=== PATIENT | male | born 1945 | race Caucasian/White ===

== ENCOUNTER → 2017-12-14 05:00 | Outpatient (REF) | payer MEDICARE, SELFPAY ==
[2017-12-14 08:43] LABS: Hematocrit 35.1 % (40-54); Hemoglobin 11.6 g/dl (13.0-16.5); Mean Corpuscular Hgb 29.7 pg (27.0-32.0); Mean Corpuscular Volume 89.8 fL (80-94); Mean Platelet Vol. 10.7 fl (6.2-12.0); Platelet Count 161 K/mm3 (150-450); RBC Distribution Width CV 14.9 % (11.6-14.6); RBC Distribution Width SD 48.3 fl (35.1-43.9); Red Blood Count 3.91 M/mm3 (4.6-6.2); Scan Indicated on CBC? Y/N NO
[2017-12-14 09:18] LABS: Valproic Acid (Depakene) Level 75 ug/mL (50-100)
[2017-12-14 09:28] LABS: ALB/GLOB Ratio 0.9 RATIO (0.9-2.4); AST(SGOT) 7 U/L (15-37); Alanine Aminotransfer ALT/SGPT 10 U/L (16-61); Albumin, Serum 2.8 g/dL (3.2-5.0); Alkaline Phosphatase 67 U/L (45-117); Anion Gap 9 (5-15); BUN 18 mg/dL (7-18); BUN/Creat Ratio 16.2 RATIO (10-20); Calcium,Total 7.8 mg/dL (8.5-10.1); Chloride 103 mmol/L (98-107); Cholesterol 107 mg/dL (200); Creatinine, Serum 1.11 mg/dL (0.70-1.30); EST Glomerular Filtration Rate 69 mL/min (>60); Est Glom Filt Rate - Afr Amer 84 mL/min (>60); Globulin 3.1 g/dL (2.2-4.2); Glucose 144 mg/dL (74-106); High Density Lipoprotein 43 mg/dL; Potassium 3.5 mmol/L (3.5-5.1); Protein, Total 5.9 g/dL (6.4-8.2); Sodium Level 139 mmol/L (136-145); Thyroid Stim Hormone (TSH) 2.54 uIU/mL (0.358-3.74); Triglycerides 66 mg/dL; Very Low Density Lipoprotein 13 mg/dL (5-40)
[2017-12-14 09:59] LABS: Hemoglobin A1c 7.5 % (4.2-6.3)
== END ==
LOC: OLS.WCC 05:00
PROVIDERS: Visit Provider Family Medicine
DX: E11.9 Type 2 diabetes mellitus without complications (principal); I10 Essential (primary) hypertension; E78.5 Hyperlipidemia, unspecified; Z79.899 Other long term (current) drug therapy
CPT/HCPCS: 36415; 80053; 80061; 80164; 83036; 84443; 85027

== ENCOUNTER → 2018-04-18 05:00 | Outpatient (REF) | payer MEDICARE, SELFPAY ==
[2018-04-18 08:18] LABS: Platelet Count 179 K/mm3 (150-450)
[2018-04-18 08:30] LABS: Valproic Acid (Depakene) Level 73 ug/mL (50-100)
[2018-04-18 08:33] LABS: AST(SGOT) 9 U/L (15-37); Alanine Aminotransfer ALT/SGPT 14 U/L (16-61)
== END ==
LOC: OLS.WCC 05:00
DX: Z79.899 Other long term (current) drug therapy (principal)
CPT/HCPCS: 36415; 80164; 84450; 84460; 85049

== ENCOUNTER → 2018-06-21 05:00 | Outpatient (REF) | payer MEDICARE, SELFPAY ==
[2018-06-21 07:56] LABS: Hematocrit 34.7 % (40-54); Hemoglobin 11.6 g/dl (13.0-16.5); Mean Corp Hgb Conc 33.4 g/gl (32-36); Mean Corpuscular Hgb 29.9 pg (27.0-32.0); Mean Corpuscular Volume 89.4 fL (80-94); Mean Platelet Vol. 11.2 fl (6.2-12.0); Platelet Count 184 K/mm3 (150-450); RBC Distribution Width CV 14.2 % (11.6-14.6); RBC Distribution Width SD 45.8 fl (35.1-43.9); Red Blood Count 3.88 M/mm3 (4.6-6.2); White Blood Count 5.2 K/mm3 (4.4-11.0)
[2018-06-21 07:57] LABS: Scan Indicated on CBC? Y/N NO
[2018-06-21 08:19] LABS: ALB/GLOB Ratio 0.9 RATIO (0.9-2.4); AST(SGOT) 5 U/L (15-37); Alanine Aminotransfer ALT/SGPT 12 U/L (16-61); Albumin, Serum 2.6 g/dL (3.2-5.0); Alkaline Phosphatase 55 U/L (45-117); Anion Gap 9 (5-15); BUN 20 mg/dL (7-18); Calcium,Total 7.7 mg/dL (8.5-10.1); Chloride 96 mmol/L (98-107); Cholesterol 102 mg/dL (200); Creatinine, Serum 1.11 mg/dL (0.70-1.30); EST Glomerular Filtration Rate 69 mL/min (>60); Est Glom Filt Rate - Afr Amer 84 mL/min (>60); Glucose 131 mg/dL (74-106); High Density Lipoprotein 39 mg/dL; Potassium 3.5 mmol/L (3.5-5.1); Protein, Total 5.6 g/dL (6.4-8.2); Sodium Level 136 mmol/L (136-145); T4 Total, Thyroxin 6.2 ug/dL (4.5-12.1); Thyroid Stim Hormone (TSH) 3.11 uIU/mL (0.358-3.74); Triglycerides 110 mg/dL; Very Low Density Lipoprotein 22 mg/dL (5-40)
[2018-06-21 08:56] LABS: Hemoglobin A1c 7.3 % (4.2-6.3)
== END ==
LOC: OLS.WCC 05:00
PROVIDERS: Visit Provider Family Medicine
DX: E11.9 Type 2 diabetes mellitus without complications (principal); I10 Essential (primary) hypertension; E78.5 Hyperlipidemia, unspecified; E03.9 Hypothyroidism, unspecified; Z79.899 Other long term (current) drug therapy
CPT/HCPCS: 36415; 80053; 80061; 83036; 84436; 84443; 85027

== ENCOUNTER 2018-11-08 19:52 | Emergency (ER) | payer MEDICARE, SELFPAY ==
[2018-11-08 19:54] VITALS: BP 154/77; PULSE 62; RESP 17; TEMP 36.6; O2SAT 100; BMI 37.2
--- NOTE | 2018-11-08 20:54 | ED.VISSUMM ---
- ER Visit Summary Date of Service: 11/08/18 Chief Complaint: Depression History of Present Illness: The patient is a 73 M history of depression, hypertension and diabetes. Patient's had multiple admissions in the past but none in the last several years for depression. He denies any prior suicide attempts. He states that the last 3 weeks he has become more more depressed. He does not have a specific plan on how he would harm himself. Nor did he specifically say he is suicidal he is just concerned that he is getting worse. Physical Examination: Older male no acute distress. Family in the room. Vital signs are stable afebrile. No distress. HEENT exam unremarkable atraumatic. Neck nontender. No signs of trauma. Lungs clear to auscultation bilaterally. Heart regular rate and rhythm no murmur. Chest wall nontender. Abdomen soft nontender. Patient is moving all 4 extremities. Neurovascular intact. No edema. No signs of trauma. Back nontender. Neurologically is awake and alert with no focal motor deficits. Patient is cooperative. He makes eye contact. He is neither violent nor yelling. Test Results: None Emergency Department Course and Treatment: I will have the social service director evaluate the patient. At this time unless she comes up with additional information I feel he is safe to be discharged back to his extended care facility. Treatment Plan: Patient was also evaluated by executive secretary social welfare. I agree that if her card with him being discharged back to the extended care facility. Discussed that both at length with the family and patient. They have already set up an appointment for the patient to be seen by the counseling center personnel tomorrow morning. Patient is return if he is feeling worse or suicidal. Disposition: Discharge Impression: Acute on chronic depression History of diabetes and hypertension This note was generated with Rattleation software. It may contain incorrect words, spelling, and punctuation that were not noted in review of the chart prior to signing ED Disposition - Plan for ED Patient: Referrals: Parviz Acevedo MD [Primary Care Provider] -
[2018-11-08 20:57] VITALS: RESP 18
[2018-11-08 21:08] VITALS: BP 154/70; PULSE 60; RESP 18; O2SAT 96
--- NOTE | 2018-11-08 21:35 | CM.ED ---
SOCIAL WORK ASSESSMENT REASON FOR CONSULT: DEPRESSION INFORMANT: DR. BAILEY INFORMATION OBTAINED FROM: MEDICAL RECORD AND PT. INTRODUCED SELF AND ROLE AT [facility]. PT IS ALERT AND ORIENTED X3 AND PRESENTS WITH PLEASANT AFFECT EVIDENCED BY SMILING AND WILLINGNESS TO PARTICIPATE IN ASSESSMENT. PT ENGAGES IN CONVERSATION AND EXHIBITS APPROPRIATE SOCIAL ETIQUETTE. LIVING ARRANGEMENTS: [facility] - [facility]. STRESSORS: PT IS UNABLE TO IDENTIFY ANY RECENT OR SIGNIFICANT STRESSORS OR ANNIVERSARIES. STATES HIS NERVES HAVE JUST GOTTEN WORSE. SUPPORTS: PT IDENTIFIES HIS TWO BROTHERS THAT ARE BOTH PRESENT. MENTAL HEALTH HX: PT REPORTS A HX OF DEPRESSION, AND BIPOLAR. HE IS LINKED WITH DR. BOWEN AT [facility] AND IS PRESCRIBED SEROQUEL, DEPAKOTE AND BUSPAR. HE IS NOT LINKED WITH A COUNSELOR AND REPORTS THAT IT DID NOT HELP IN THE PAST. PT DENIES SI, PLAN OR INTENT AT THIS TIME. STATES THAT SOMETIMES IT SEEMS EASIER TO NOT DEAL WITH HIS NERVES, BUT PT DENIES SI. REPORTS FAMILY A REASON HE WOULD NOT COMPLETE A SUICIDE ATTEMPT AND DENIES AN ATTEMPT IN THE PAST ALTHOUGH HE HAS BEEN PSYCHIATRICALLY PLACED. 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 PT IS AGREEABLE. PLACED CALL TO THE COUNSELING CENTER AND ESTABLISHED AN APPOINTMENT FOR THE PT WITH GEORGE ON 11/09 AT 10 AM. SUBSTANCE USE HX: DENIES ANY SUBSTANCE USE. INTERVENTION(S): ASSESSMENT COMPLETE AND PT PRESENTING A SUICIDE RISK. PT ESTABLISHED WITH A CRISIS F/U APPOINTMENT WITH GEORGE AT [facility] AT 10AM ON 11/09/18. PHYSICIAN UPDATED, PT TO BE GIVEN [facility] PRIOR TO DISCHARGE BACK TO SNF. PLAN: RETURN TO SNF AND F/U WITH CRISIS TOMORROW AT 10 AM. Aiyana Valles, BALTAZAR, ALIX
--- NOTE | 2018-11-08 21:40 | ED.DEP ---
ED Disposition - Plan for ED Patient: Disposition: Home or Assisted Living Instructions: ED Depression Referrals: Parviz Acevedo MD [Primary Care Provider] - As Needed Additional Instructions: Absolutely very important to keep the appointment with the counselor tomorrow. Return if feeling worse or let someone know if you feel suicidal enough to act on it.
[2018-11-08] MEDS: LORazepam 1 MG Tablet PO (21:46)
[2018-11-08 21:51] VITALS: BP 152/71; PULSE 64; RESP 18; O2SAT 98
--- NOTE | 2018-11-08 21:51 | NURSING ---
REPORT CALLED TO ADA AT [facility]
== END 2018-11-08 22:10 | disposition skilled nursing facility (03) ==
PROVIDERS: Emergency Provider Emergency Medicine; Family Provider Family Medicine; PCP Family Medicine
DX: F32.9 Major depressive disorder, single episode, unspecified (principal); I10 Essential (primary) hypertension; E11.9 Type 2 diabetes mellitus without complications; Z79.4 Long term (current) use of insulin; Z79.899 Other long term (current) drug therapy
CPT/HCPCS: 99284

== ENCOUNTER → 2018-12-14 05:00 | Outpatient (REF) | payer MEDICARE, SELFPAY ==
[2018-12-14 08:40] LABS: Platelet Count 217 K/mm3 (150-450)
[2018-12-14 08:51] LABS: AST(SGOT) 8 U/L (15-37); Alanine Aminotransfer ALT/SGPT 11 U/L (16-61)
[2018-12-14 09:03] LABS: Valproic Acid (Depakene) Level 80 ug/mL (50-100)
== END ==
LOC: OLS.WCC 05:00
DX: Z79.899 Other long term (current) drug therapy (principal)
CPT/HCPCS: 36415; 80164; 82140; 84450; 84460; 85049

== ENCOUNTER → 2018-12-21 | Outpatient (REF) | payer MEDICARE, SELFPAY ==
[2018-12-21 07:24] LABS: Platelet Count 179 K/mm3 (150-450)
[2018-12-21 07:42] LABS: AST(SGOT) 7 U/L (15-37); Alanine Aminotransfer ALT/SGPT 11 U/L (16-61); Albumin, Serum 2.6 g/dL (3.2-5.0); Alkaline Phosphatase 56 U/L (45-117); Anion Gap 4 (5-15); BUN 25 mg/dL (7-18); BUN/Creat Ratio 22.5 RATIO (10-20); Calcium,Total 8.4 mg/dL (8.5-10.1); Chloride 98 mmol/L (98-107); Cholesterol 106 mg/dL (200); Creatinine, Serum 1.11 mg/dL (0.70-1.30); EST Glomerular Filtration Rate 69 mL/min (>60); Est Glom Filt Rate - Afr Amer 83 mL/min (>60); Globulin 2.9 g/dL (2.2-4.2); Glucose 104 mg/dL (74-106); High Density Lipoprotein 45 mg/dL; Potassium 3.2 mmol/L (3.5-5.1); Protein, Total 5.5 g/dL (6.4-8.2); Sodium Level 134 mmol/L (136-145); Triglycerides 48 mg/dL; Very Low Density Lipoprotein 10 mg/dL (5-40)
[2018-12-21 07:46] LABS: Hemoglobin A1c 7.8 % (4.2-6.3)
[2018-12-21 07:51] LABS: Valproic Acid (Depakene) Level 79 ug/mL (50-100)
== END | disposition home or self-care (01) ==
LOC: OLS.WCC 05:00
PROVIDERS: Visit Provider Family Medicine
DX: E11.9 Type 2 diabetes mellitus without complications (principal); I10 Essential (primary) hypertension; E78.5 Hyperlipidemia, unspecified; Z79.899 Other long term (current) drug therapy; R00.2 Palpitations
CPT/HCPCS: 36415; 80048; 80061; 80076; 80164; 83036; 85049

== ENCOUNTER → 2019-05-24 05:00 | Outpatient (REF) | payer MEDICARE, SELFPAY ==
[2019-05-24 07:53] LABS: Hematocrit 35.4 % (40-54); Hemoglobin 11.8 g/dL (13.0-16.5); Mean Corp Hgb Conc 33.3 g/dL (32-36); Mean Corpuscular Hgb 29.9 pg (27.0-32.0); Mean Corpuscular Volume 89.6 fL (80-94); Mean Platelet Vol. 10.7 fl (6.2-12.0); Platelet Count 204 K/mm3 (150-450); RBC Distribution Width CV 14.8 % (11.6-14.6); RBC Distribution Width SD 48.3 fl (35.1-43.9); Red Blood Count 3.95 M/mm3 (4.6-6.2); White Blood Count 6.2 K/mm3 (4.4-11.0)
[2019-05-24 08:19] LABS: ALB/GLOB Ratio 0.9 RATIO (0.9-2.4); AST(SGOT) 6 U/L (15-37); Alanine Aminotransfer ALT/SGPT 10 U/L (16-61); Albumin, Serum 2.6 g/dL (3.2-5.0); Alkaline Phosphatase 64 U/L (45-117); Anion Gap 5 (5-15); BUN 22 mg/dL (7-18); BUN/Creat Ratio 20.4 RATIO (10-20); Chloride 102 mmol/L (98-107); Cholesterol 111 mg/dL (200); Creatinine, Serum 1.08 mg/dL (0.70-1.30); EST Glomerular Filtration Rate 71 mL/min (>60); Est Glom Filt Rate - Afr Amer 86 mL/min (>60); Globulin 2.9 g/dL (2.2-4.2); Glucose 128 mg/dL (74-106); High Density Lipoprotein 44 mg/dL; Potassium 3.5 mmol/L (3.5-5.1); Protein, Total 5.5 g/dL (6.4-8.2); Sodium Level 138 mmol/L (136-145); T4 Total, Thyroxin 4.7 ug/dL (4.5-12.1); Thyroid Stim Hormone (TSH) 2.22 uIU/mL (0.358-3.74); Triglycerides 75 mg/dL; Very Low Density Lipoprotein 15 mg/dL (5-40)
[2019-05-24 08:29] LABS: Hemoglobin A1c 7.5 % (4.2-6.3)
[2019-05-24 08:40] LABS: Valproic Acid (Depakene) Level 76 ug/mL (50-100)
== END ==
LOC: OLS.WCC 05:00
PROVIDERS: Visit Provider Family Medicine
DX: E11.9 Type 2 diabetes mellitus without complications (principal); I10 Essential (primary) hypertension; E78.5 Hyperlipidemia, unspecified; E03.9 Hypothyroidism, unspecified; Z79.899 Other long term (current) drug therapy
CPT/HCPCS: 36415; 80053; 80061; 80164; 82140; 83036; 84436; 84443; 85027

== ENCOUNTER → 2019-06-26 05:00 | Outpatient (REF) | payer MEDICARE, SELFPAY | LOC: OLS.WCC 05:00 | PROVIDERS: Visit Provider Family Medicine | DX: Z79.899 Other long term (current) drug therapy (principal) | CPT/HCPCS: 36415; 82140 ==

== ENCOUNTER → 2019-11-23 05:00 | Outpatient (REF) | payer MEDICARE, MEDICAID, SELFPAY ==
[2019-11-23 08:37] LABS: Platelet Count 249 K/mm3 (150-450)
[2019-11-23 08:52] LABS: AST(SGOT) 16 U/L (15-37); Alanine Aminotransfer ALT/SGPT 18 U/L (16-61); Albumin, Serum 3.3 g/dL (3.2-5.0); Alkaline Phosphatase 108 U/L (45-117); Anion Gap 7 (5-15); BUN 12 mg/dL (7-18); BUN/Creat Ratio 10.5 RATIO (10-20); Calcium,Total 8.5 mg/dL (8.5-10.1); Chloride 96 mmol/L (98-107); Cholesterol 108 mg/dL (200); Creatinine, Serum 1.14 mg/dL (0.70-1.30); EST Glomerular Filtration Rate 67 mL/min (>60); Est Glom Filt Rate - Afr Amer 81 mL/min (>60); Globulin 3.3 g/dL (2.2-4.2); Glucose 132 mg/dL (74-106); High Density Lipoprotein 42 mg/dL; Potassium 3.5 mmol/L (3.5-5.1); Protein, Total 6.6 g/dL (6.4-8.2); Sodium Level 136 mmol/L (136-145); Triglycerides 88 mg/dL; Very Low Density Lipoprotein 18 mg/dL (5-40)
[2019-11-23 08:56] LABS: Valproic Acid (Depakene) Level < 3 ug/mL (50-100)
[2019-11-23 09:37] LABS: Hemoglobin A1c 8.2 % (4.2-6.3)
== END ==
LOC: OLS.WCC 05:00
PROVIDERS: PCP Family Medicine; Visit Provider Family Medicine
DX: E11.9 Type 2 diabetes mellitus without complications (principal); E78.5 Hyperlipidemia, unspecified; E03.9 Hypothyroidism, unspecified; Z79.899 Other long term (current) drug therapy; Z51.81 Encounter for therapeutic drug level monitoring
CPT/HCPCS: 36415; 80053; 80061; 80164; 83036; 85049

== ENCOUNTER → 2020-01-08 14:15 | Outpatient (REF) | payer MEDICARE, MEDICAID, SELFPAY | LOC: OLS.WCC 14:15 | PROVIDERS: Visit Provider Family Medicine | DX: E11.9 Type 2 diabetes mellitus without complications (principal); E78.5 Hyperlipidemia, unspecified; Z79.899 Other long term (current) drug therapy | CPT/HCPCS: 87070; 87205 ==

== ENCOUNTER → 2020-03-26 11:30 | Outpatient (REF) | payer MEDICARE, MEDICAID, SELFPAY ==
[2020-03-26 12:26] LABS: Absolute Lymphocyte Count 1.76 X10^3/uL (0.83-4.51); Basophil# 0.02 X10^3/uL; Basophil% 0.3 % (0-1); Eosinophil# 0.01 X10^3/uL; Eosinophils% 0.2 % (0-5); Hemoglobin 10.7 g/dL (13.0-16.5); Lymphocyte # 1.76 X10^3/ul (4.0); Mean Corp Hgb Conc 32.4 g/dL (32-36); Mean Corpuscular Hgb 27.8 pg (27.0-32.0); Mean Corpuscular Volume 85.7 fL (80-94); Mean Platelet Vol. 11.4 fl (6.2-12.0); Monocyte# 1.03 X10^3/uL; Monocyte% 17.6 % (0-10); NRBC Flagged by Analyzer 0 % (0-5); Neutrophil # 3.01 X10^3/uL (2.7-7.7); Neutrophil % 51.4 % (47-70); Platelet Count 239 K/mm3 (150-450); RBC Distribution Width CV 15.2 % (11.6-14.6); RBC Distribution Width SD 46.8 fl (35.1-43.9); Red Blood Count 3.85 M/mm3 (4.6-6.2); White Blood Count 5.9 K/mm3 (4.4-11.0)
[2020-03-26 12:34] LABS: Anion Gap 6 (5-15); BUN 15 mg/dL (7-18); BUN/Creat Ratio 10.5 RATIO (10-20); Calcium,Total 8.4 mg/dL (8.5-10.1); Chloride 97 mmol/L (98-107); Creatinine, Serum 1.43 mg/dL (0.70-1.30); EST Glomerular Filtration Rate 51 mL/min (>60); Est Glom Filt Rate - Afr Amer 62 mL/min (>60); Glucose 105 mg/dL (74-106); Potassium 3.9 mmol/L (3.5-5.1); Sodium Level 132 mmol/L (136-145)
== END ==
LOC: OLS.WCC 11:30
PROVIDERS: PCP Family Medicine; Visit Provider Family Medicine
DX: E11.9 Type 2 diabetes mellitus without complications (principal); R50.9 Fever, unspecified; I10 Essential (primary) hypertension
CPT/HCPCS: 36415; 80048; 85025

== ENCOUNTER → 2020-04-03 13:35 | Outpatient (REF) | payer MEDICARE, MEDICAID, SELFPAY | LOC: OLS.WCC 13:35 | PROVIDERS: PCP Family Medicine; Referring Provider Family Medicine; Visit Provider Family Medicine | DX: Z20.828 Contact with and (suspected) exposure to other viral communicable diseases (principal) | CPT/HCPCS: 87635; U0003 ==

== ENCOUNTER → 2020-05-13 08:00 | Outpatient (REF) | payer MEDICARE, MEDICAID, SELFPAY ==
[2020-05-13 11:34] LABS: Hematocrit 33.5 % (40-54); Hemoglobin 10.4 g/dL (13.0-16.5); Mean Corpuscular Hgb 27.1 pg (27.0-32.0); Mean Corpuscular Volume 87.2 fL (80-94); Mean Platelet Vol. 10.5 fl (6.2-12.0); Platelet Count 315 K/mm3 (150-450); RBC Distribution Width SD 51.2 fl (35.1-43.9); Red Blood Count 3.84 M/mm3 (4.6-6.2); White Blood Count 8.7 K/mm3 (4.4-11.0)
[2020-05-13 11:56] LABS: Hemoglobin A1c 7.8 % (3.8-5.6)
[2020-05-13 12:17] LABS: ALB/GLOB Ratio 0.9 RATIO (0.9-2.4); AST(SGOT) 21 U/L (15-37); Alanine Aminotransfer ALT/SGPT 26 U/L (16-61); Albumin, Serum 3.2 g/dL (3.2-5.0); Alkaline Phosphatase 113 U/L (45-117); Anion Gap 5 (5-15); BUN 22 mg/dL (7-18); BUN/Creat Ratio 14.6 RATIO (10-20); Calcium,Total 8.6 mg/dL (8.5-10.1); Chloride 105 mmol/L (98-107); Cholesterol 123 mg/dL (200); Creatinine, Serum 1.51 mg/dL (0.70-1.30); EST Glomerular Filtration Rate 48 mL/min (>60); Est Glom Filt Rate - Afr Amer 58 mL/min (>60); Globulin 3.5 g/dL (2.2-4.2); Glucose 133 mg/dL (74-106); High Density Lipoprotein 59 mg/dL; Potassium 3.4 mmol/L (3.5-5.1); Protein, Total 6.7 g/dL (6.4-8.2); Sodium Level 139 mmol/L (136-145); T4 Total, Thyroxin 7.4 ug/dL (4.5-12.1); Thyroid Stim Hormone (TSH) 1.78 uIU/mL (0.358-3.74); Triglycerides 70 mg/dL; Very Low Density Lipoprotein 14 mg/dL (5-40)
[2020-05-13 12:18] LABS: Valproic Acid (Depakene) Level < 3 ug/mL (50-100)
== END ==
LOC: OLS.WCC 08:00
PROVIDERS: PCP Family Medicine; Referring Provider Family Medicine; Visit Provider Family Medicine
DX: D64.9 Anemia, unspecified (principal); E11.9 Type 2 diabetes mellitus without complications; I10 Essential (primary) hypertension; E78.5 Hyperlipidemia, unspecified; E03.9 Hypothyroidism, unspecified; Z79.899 Other long term (current) drug therapy; Z51.81 Encounter for therapeutic drug level monitoring
CPT/HCPCS: 36415; 80053; 80061; 80164; 83036; 84436; 84443; 85027

== ENCOUNTER 2020-07-08 00:51 | Emergency (ER) | payer MEDICARE, MEDICAID, SELFPAY ==
[2020-07-08 00:53] VITALS: BP 123/57; PULSE 73; RESP 13; TEMP 36.4; O2SAT 96; BMI 38.6
--- NOTE | 2020-07-08 01:19 | CT_ITS ---
STUDY: CT BRAIN WITHOUT CONTRAST REASON FOR EXAM: Male, 74 years old. S/P SLIPPING AND FALLING AT MA, LAC TO POSTERIOR HEAD RADIATION DOSAGE (If Supplied By Facility): CTDIvol = ( 44.99 ) mGy, DLP = ( 779.24 ) mGycm TECHNIQUE: Transaxial CT imaging of the brain was performed without administration of intravenous contrast material. Individualized dose optimization techniques were used for this CT. COMPARISON: No relevant priors. FINDINGS: Normal soft tissue structures. Normal calvarium. Normal size ventricles and extra-axial spaces for the patient''s age. There are areas of decreased attenuation within the white matter tracts of the supratentorial brain, consistent with microvascular disease changes. Normal basal ganglia and thalami. Normal brainstem. Normal cerebellum. There is no intracranial hemorrhage. There are no findings of an acute ischemic infarction. Normal visualized paranasal sinuses. CT/Brain/Head without Contrast IMPRESSION: Chronic involutional changes of the brain. Electronically Signed: Aletha Ibrahim, at 2:11 EST Tel , Service support ,
--- NOTE | 2020-07-08 01:19 | CT_ITS ---
STUDY: CT CERVICAL SPINE WITHOUT CONTRAST REASON FOR EXAM: Male, 74 years old. S/P SLIPPING AND FALLING AT TX, LAC TO POSTERIOR HEAD RADIATION DOSAGE (If Supplied By Facility): CTDIvol = ( 25.35 ) mGy, DLP = ( 539.65 ) mGycm TECHNIQUE: High resolution transaxial imaging was performed without contrast material. Sagittal and coronal images were reconstructed. Individualized dose optimization techniques were used for this CT. COMPARISON: None FINDINGS: Normal craniovertebral junction. There are degenerative changes of the anterior atlantoaxial articulation. Normal odontoid process. Normal cervical lordosis. Normal vertebral bodies and posterior osseous elements. C2-3: Endplate spondylosis. Central and paracentral disc bulge. Degenerative changes of the bilateral facet joints and uncovertebral joints. Mild narrowing of the central canal and the bilateral intervertebral neural foramina. C3-4: Endplate spondylosis. Central and paracentral disc bulge. Degenerative changes of the bilateral facet joints and uncovertebral joints. Moderate narrowing of the central canal and the bilateral intervertebral neural foramina. C4-5: Endplate spondylosis. Central and paracentral disc bulge. Degenerative changes of the bilateral facet joints and uncovertebral joints. Moderate to severe narrowing of the central canal and the bilateral intervertebral neural foramina. C5-6: Endplate spondylosis. Central and paracentral disc bulge. Degenerative changes of the bilateral facet joints and uncovertebral joints. Moderate to severe narrowing of the central canal and the bilateral intervertebral neural foramina. C6-7: Endplate spondylosis. Central and paracentral disc bulge. Degenerative changes of the bilateral facet joints and uncovertebral joints. Moderate to severe narrowing of the central canal and the bilateral intervertebral neural foramina. C7-T1: Normal endplates. Normal disc height and morphology. Normal central canal and intervertebral neuroforamina. Normal visualized soft tissue structures. CT/Spine Cervical without Contras IMPRESSION: Multilevel degenerative changes, as described above. Electronically Signed: Aletha Ibrahim, at 2:17 EST Tel , Service support ,
--- NOTE | 2020-07-08 01:32 | RAD_ITS ---
STUDY: X-RAY - PELVIS AND RIGHT HIP REASON FOR EXAM: Male, 74 years old. FELL -- C/O RT HIP PAIN TECHNIQUE: 3 views of the pelvis and hip. COMPARISON: None. FINDINGS: There is a non-specific bowel gas pattern. Normal visualized soft tissue structures. There is narrowing with cortical sclerosis and osteophyte formation of the sacroiliac joint consistent with degenerative osteoarthritic changes. Normal bilateral superior and inferior pubic rami. There is narrowing with sclerosis of the pubic symphysis. Normal bilateral ischial tuberosities. There are osteoarthritic changes of the femoral head with marginal osteophyte formation. Normal acetabulum. Normal hip joint. 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 Electronically Signed: Aletha Ibrahim, at 2:19 EST Tel , Service support ,
[2020-07-08] MEDS: Diphth,Pertuss(Acell),Tet Vac 0.5 ML Vial IM (01:49)
--- NOTE | 2020-07-08 02:30 | ED.DCSUM_ITS ---
History of Present Illness Chief Complaint: Head Injury Informant: Patient Narrative: Patient stated he was in the bathroom and got up from using the toilet and his legs got out from under him as he was not using his walker device. He struck the back of his head on the toilet. Unsure of his last tetanus shot. Did not lose consciousness. Is not on blood thinners. Stated he has some mild soreness in the back of his neck and head where he struck. Also stated he has some mild soreness in his right hip. Brought in for further evaluation and suture closure Past Medical History - Allergies and Home Meds Allergies/Adverse Reactions: Allergies No Known Allergies Allergy (Verified 07/08/20 00:53) Primary Care Physician: Parviz Acevedo MD [Primary Care Provider] - Prior records reviewed: Yes Past Medical History: - - Reviewed Surgical History: - - Reviewed Lives: Long-Term Smoking Status: Never smoker Alcohol: None Drugs: None Review of Systems General: Denies: Chills, Fever, Sweats Eyes: Denies: Visual changes - bilaterally, Diplopia ENT: Denies: Rhinorrhea, Sore throat Cardiovascular: Denies: Chest pain, Palpitations Respiratory: Denies: Dyspnea, Cough, Dyspnea on exertion Gastrointestinal: Denies: Abdominal pain, Nausea, Vomiting, Diarrhea, Melena, Hematochezia Genitourinary: Denies: Dysuria, Hematuria, Frequency Musculoskeletal: Reports: Neck pain, Extremity Pain. Denies: Back pain Skin: Denies: Rash, Wounds Neurological: Denies: Headache, Weakness, Numbness Physical Exam Vital Signs/Narrative: Vital Signs Temp Pulse Resp BP Pulse Ox 07/08/20 00:53 97.6 F L 73 13 123/57 H 96 General: Well nourished, Well developed, No Acute Distress Head: Trauma - 4 cm laceration right posterior scalp partial-thickness Eyes: Perrl, EOMI ENT: Moist mucous membranes, No rhinorrhea Neck: Supple, Nontender Cardiovascular: Regular rate, Regular rhythm, No murmurs Respiratory: No distress, CTA bilaterally, Chest nontender Abdomen: Soft, Nontender, Nondistended, Normal bowel sounds Back: Nontender, Normal Inspection Extremities: Nontender, No edema Skin: Normal color, No rash Neurological: Alert, Oriented x3, Cranial nerves II-XII grossly intact, Normal Strength, Normal Sensation Psychological: Normal affect, Normal Mood Diagnostic/Tx/Re-eval - Medical Decision Making Interpretation of the right hip x-ray shows degenerative arthritis without fracture. CT head and neck show chronic changes with nothing acute. The patient's laceration on the back of his head measures 4 cm. There is no underlying hematoma. Cleansed was saline after being cleansed with chlorhexidine and anesthetized with 4 cc 1% lidocaine. I used 500 cc of saline to clean this. It was easily closed with 5 simple christa. Galea intact. At this time I feel the patient can be discharged to follow-up as an outpatient. ED Disposition - Plan for ED Patient: Disposition: Home or Assisted Living Diagnosis: Scalp laceration, Neck strain, Strain of right hip Instructions: ED Laceration All Closures Referrals: Parviz Acevedo MD [Primary Care Provider] -
--- NOTE | 2020-07-08 02:35 | ED.VIS.GEN ---
History of Present Illness Chief Complaint: Head Injury Informant: Patient Past Medical History - Allergies and Home Meds Allergies/Adverse Reactions: Allergies No Known Allergies Allergy (Verified 07/08/20 00:53) Primary Care Physician: Parviz Acevedo MD [Primary Care Provider] - Surgical History: - - Reviewed Lives: Long-Term Smoking Status: Never smoker Alcohol: None Drugs: None Physical Exam Vital Signs/Narrative: Vital Signs Temp Pulse Resp BP Pulse Ox 07/08/20 00:53 97.6 F L 73 13 123/57 H 96 ED Disposition - Plan for ED Patient: Disposition: Home or Assisted Living Diagnosis: Scalp laceration, Neck strain, Strain of right hip Instructions: ED Laceration All Closures Referrals: Parviz Acevedo MD [Primary Care Provider] -
[2020-07-08] MEDS: BACITRACIN 15 GM Tube 1 APPLIC TOPICAL (02:51)
[2020-07-08] MEDS: Lidocaine 1% (20 ml mdv) 20 ML Vial INFILT (02:51)
[2020-07-08 02:52] VITALS: BP 115/65; PULSE 65; RESP 16; O2SAT 98
[2020-07-08] MEDS: Loperamide 2 MG Capsule 4 MG PO (02:54)
--- NOTE | 2020-07-08 03:02 | ED.RN ---
Report given to [facility] to Marcia regarding pt. sister and father in law coming to pick pt up.
[2020-07-08 03:10] VITALS: BP 124/65; PULSE 61; RESP 18; O2SAT 98
== END 2020-07-08 03:36 | disposition home or self-care (01) ==
PROVIDERS: Emergency Provider Emergency Medicine
DX: S01.01XA Laceration without foreign body of scalp, initial encounter (principal); S16.1XXA Strain of muscle, fascia and tendon at neck level, initial encounter; S76.011A Strain of muscle, fascia and tendon of right hip, initial encounter; W18.39XA Other fall on same level, initial encounter; Y93.89 Activity, other specified; Y92.9 Unspecified place or not applicable; Y99.9 Unspecified external cause status; M16.11 Unilateral primary osteoarthritis, right hip
CPT/HCPCS: 12002; 70450; 72125; 73502; 90471; 90715; 99285

== ENCOUNTER → 2020-08-03 17:05 | Outpatient (REF) | payer MEDICARE, MEDICAID, SELFPAY ==
[2020-07-08 00:53] VITALS: BMI 38.6
[2020-08-03 17:24] LABS: Hemoglobin 10.8 g/dL (13.0-16.5); Mean Corp Hgb Conc 33.8 g/dL (32-36); Mean Corpuscular Hgb 25.5 pg (27.0-32.0); Mean Corpuscular Volume 75.7 fL (80-94); Mean Platelet Vol. 9.4 fl (6.2-12.0); Platelet Count 252 K/mm3 (150-450); RBC Distribution Width CV 15.6 % (11.6-14.6); RBC Distribution Width SD 42.9 fl (35.1-43.9); Red Blood Count 4.23 M/mm3 (4.6-6.2); White Blood Count 5.6 K/mm3 (4.4-11.0)
[2020-08-03 17:43] LABS: AST(SGOT) 16 U/L (15-37); Alanine Aminotransfer ALT/SGPT 21 U/L (16-61); Albumin, Serum 3.4 g/dL (3.2-5.0); Alkaline Phosphatase 146 U/L (45-117); Anion Gap 9 (5-15); BUN 8 mg/dL (7-18); BUN/Creat Ratio 8.8 RATIO (10-20); Calcium,Total 8.2 mg/dL (8.5-10.1); Chloride 82 mmol/L (98-107); Creatinine, Serum 0.91 mg/dL (0.70-1.30); EST Glomerular Filtration Rate 87 mL/min (>60); Est Glom Filt Rate - Afr Amer 105 mL/min (>60); Globulin 3.4 g/dL (2.2-4.2); Glucose 119 mg/dL (74-106); Potassium 4.2 mmol/L (3.5-5.1); Protein, Total 6.8 g/dL (6.4-8.2); Sodium Level 115 mmol/L (136-145)
[2020-08-03 21:37] VITALS: BMI 36.9
== END ==
LOC: OLS.WCC 17:05
PROVIDERS: PCP Family Medicine; Visit Provider Family Medicine
DX: D64.9 Anemia, unspecified (principal); E11.9 Type 2 diabetes mellitus without complications; I10 Essential (primary) hypertension
CPT/HCPCS: 36415; 80053; 85027

== ENCOUNTER 2020-08-03 19:12 | Inpatient (IN) | payer MEDICARE, MEDICAID, SELFPAY ==
[2020-08-03] VITALS (7 sets, daily range): BP systolic 156–181; BP diastolic 62–81; PULSE 64–67; RESP 16–19; TEMP 36.7–36.9; O2SAT 97–99; BMI 36.8; BMI 36.9; BMI 37.0
--- NOTE | 2020-08-03 19:31 | ED.VIS.GEN ---
History of Present Illness Chief Complaint: Abn Labs Informant: Patient Onset: Today Narrative: Patient reportedly had routine blood work drawn at his ECF. Sodium level returned at 115 and patient was sent in for further evaluation. Patient does report some chronic hip and low back pain. He denies recent fall or injury. Last blood work available is from May 13, 2020 at which time his sodium was 139. Patient does not believe he has had any recent medication adjustments. He states he is urinating normally. - Past Medical History (1) Diabetes Status: Chronic (2) Hypertension Status: Chronic (3) Hypothyroid Status: Chronic (4) GERD (gastroesophageal reflux disease) Status: Chronic (5) Bipolar disorder Status: Chronic (6) High cholesterol Status: Chronic Past Medical History - Allergies and Home Meds Allergies/Adverse Reactions: Allergies hydrochlorothiazide [From Maxzide] Allergy (Verified 08/03/20 19:17) Unknown triamterene [From Maxzide] Allergy (Verified 08/03/20 19:17) Unknown Primary Care Physician: Parviz Acevedo MD [Primary Care Provider] - Prior records reviewed: Yes Surgical History: cholecystectomy, - Lives: Longterm Smoking Status: Never smoker - Family History Maternal Family History: Reports: Hypertension Review of Systems General: Denies: Chills, Fever Eyes: Denies: Visual changes - bilaterally ENT: Denies: Bilateral ear pain Cardiovascular: Denies: Chest pain Respiratory: Denies: Dyspnea, Cough Gastrointestinal: Denies: Abdominal pain, Vomiting, Diarrhea Musculoskeletal: Reports: Back pain, Swelling, Extremity Pain Skin: Denies: Rash, Wounds Neurological: Denies: Headache Hematologic: Denies: Easy bruising, Easy bleeding Allergy: Denies: Uticaria Physical Exam Vital Signs/Narrative: Vital Signs Temp Pulse Resp BP Pulse Ox 08/03/20 19:14 98.5 F 64 16 156/62 H 99 Inital Vital Signs reviewed: Yes General: Well nourished, Well developed Head: Normocephalic ENT: Moist mucous membranes Neck: Supple Cardiovascular: Regular rate, Regular rhythm Respiratory: No distress, CTA bilaterally Abdomen: Soft, Nontender, Normal bowel sounds, - - Distended Extremities: Edema - 2-3+ bilateral lower extremity edema, symmetric Skin: Normal color Neurological: Alert, Oriented x3 Psychological: Normal affect Diagnostic/Tx/Re-eval Laboratory Results 08/03/20 08/03/20 19:40 19:40 WBC 5.3 RBC 4.20 L Hgb 10.6 L Hct 31.6 L MCV 75.2 L MCH 25.2 L MCHC 33.5 RDW Std Deviation 41.9 RDW Coeff of Celine 15.4 H Plt Count 231 MPV 9.6 Immature Gran % (Auto) 0.600 Neut % (Auto) 68.8 Lymph % (Auto) 17.5 L Kidder % (Auto) 12.7 H Eos % (Auto) 0.2 Baso % (Auto) 0.2 Absolute Neuts (auto) 3.6 Absolute Lymphs (auto) 0.92 Nucleated RBC % 0 Sodium 113 L* Potassium 4.3 Chloride 80 L Carbon Dioxide 28.0 Anion Gap 5 BUN 8 Creatinine 0.97 Estim Creat Clear Calc 64.64 Est GFR (MDRD) Af Amer 97 Est GFR (MDRD) Non-Af 80 BUN/Creatinine Ratio 8.2 L Glucose 144 H Calcium 8.2 L - Medical Decision Making Patient is ordered 1 L IV fluid bolus here while we are repeating labs. Sodium is confirmed low at 113. Remainder of blood work is largely unremarkable. Patient denies being an excessive water drinker. On review of his medications he is on Trileptal which can cause hyponatremia, however I am unable to ascertain when this medication was initially started if there was any recent dose changes. Regardless patient has very minimal symptoms. He will be admitted to the hospital for further treatment. ED Disposition - Plan for ED Patient: Disposition: Acute Care Hospital [facility] Diagnosis: Hyponatremia Referrals: Parviz Acevedo MD [Primary Care Provider] -
[2020-08-03] MEDS: 0.9% Normal Saline 1,000 ML 1000 ML IV (19:48)
[2020-08-03 19:52] LABS: Absolute Lymphocyte Count 0.92 X10^3/uL (0.83-4.51); Absolute Neutrophil Count 3.6 X10^3/uL (2.0-7.7); Basophil# 0.01 X10^3/uL; Basophil% 0.2 % (0-1); Eosinophil# 0.01 X10^3/uL; Eosinophils% 0.2 % (0-5); Hematocrit 31.6 % (40-54); Hemoglobin 10.6 g/dL (13.0-16.5); Lymphocyte # 0.92 X10^3/ul (4.0); Lymphocyte % 17.5 % (19-41); Mean Corp Hgb Conc 33.5 g/dL (32-36); Mean Corpuscular Hgb 25.2 pg (27.0-32.0); Mean Corpuscular Volume 75.2 fL (80-94); Mean Platelet Vol. 9.6 fl (6.2-12.0); Monocyte# 0.67 X10^3/uL; Monocyte% 12.7 % (0-10); NRBC Flagged by Analyzer 0 % (0-5); Neutrophil # 3.62 X10^3/uL (2.7-7.7); Neutrophil % 68.8 % (47-70); Platelet Count 231 K/mm3 (150-450); RBC Distribution Width CV 15.4 % (11.6-14.6); RBC Distribution Width SD 41.9 fl (35.1-43.9); White Blood Count 5.3 K/mm3 (4.4-11.0)
[2020-08-03 20:15] LABS: Anion Gap 5 (5-15); BUN 8 mg/dL (7-18); BUN/Creat Ratio 8.2 RATIO (10-20); Calcium,Total 8.2 mg/dL (8.5-10.1); Chloride 80 mmol/L (98-107); Creatinine, Serum 0.97 mg/dL (0.70-1.30); EST Glomerular Filtration Rate 80 mL/min (>60); Est Glom Filt Rate - Afr Amer 97 mL/min (>60); Estimated Creatinine Clearance 64.64 ml/min; Glucose 144 mg/dL (74-106); Potassium 4.3 mmol/L (3.5-5.1); Sodium Level 113 mmol/L (136-145)
--- NOTE | 2020-08-03 20:56 | HP.PCM_ITS ---
Problem List (1) Severe hyponatremia Status: Acute (2) Depression Status: Chronic (3) Type 2 diabetes mellitus Status: Chronic (4) Hyperlipidemia Status: Chronic (5) Hypothyroidism Status: Chronic (6) Hypertension Status: Chronic (7) GERD (gastroesophageal reflux disease) Status: Chronic (8) Bipolar disorder Status: Chronic History of Present Illness Date of Admission: 08/03/20 Chief Complaint: Abnormal labs. The patient is a 74 year old M with past medical history as mentioned above presented to the emergency room from the assisted living because of abnormal labs. Today, patient had routine blood work and he was found to have sodium level of 115 mmol/L. He was sent to ED for evaluation. Patient denied any significant complaints. He denied nausea or vomiting. He denied abdominal pain, constipation or diarrhea. He denied cough or sputum production. He denied fever or chills. He denied urinary symptoms. He had a history of type 2 diabetes mellitus and he has been on Lantus and Humalog as well as Actos and Onglyza and his most recent hemoglobin A1c was 7.8% on May,. He had a history of depression and bipolar disorder and he has been on multiple medications including BuSpar, Depakote, Seroquel and risperidone. Patient denied any adjustment to his medications recently. He had a history of hypertension which seemed to be under control with Norvasc, HCTZ, Lasix and lisinopril. In the emergency department, his vital signs were stable, was afebrile. His routine blood work was remarkable for hemoglobin of 10.6 g/dL which is chronic, sodium 113, otherwise unremarkable. LFT was unremarkable. He is being admitted for severe hyponatremia for evaluation and treatment. Past Medical History Past Medical History (Chronic Problems): Chronic Problems (This Medical Record has been edited. Action required.) Depression (Chronic) Type 2 diabetes mellitus (Chronic) Hyperlipidemia (Chronic) Hypothyroidism (Chronic) Hypertension (Chronic) GERD (gastroesophageal reflux disease) (Chronic) Bipolar disorder (Chronic) Allergies hydrochlorothiazide [From Maxzide] Allergy (Verified 08/03/20 19:17) Unknown triamterene [From Maxzide] Allergy (Verified 08/03/20 19:17) Unknown Home Medications: Ambulatory Orders Medication Instructions Recorded Lisinopril [Zestril] 40 mg PO DAILY 06/10/13 Amlodipine [Norvasc] 5 mg PO DAILY 12/30/13 Divalproex (ER) [Depakote ER] 1,000 mg PO QHS 12/30/13 Saxagliptin HCl [Onglyza] 5 mg PO DAILY 11/28/15 Omeprazole [Prilosec] 20 mg PO BID 06/04/16 Pioglitazone [Actos] 15 mg PO DAILY 06/04/16 busPIRone [Buspar] 10 mg PO BID 06/04/16 Atorvastatin Calcium [Lipitor] 40 mg PO QHS 11/08/18 Cholecalciferol (VIT D3) [Vitamin 1,000 unit PO BID 11/08/18 D] Hydrochlorothiazide [Hctz] 25 mg PO DAILY 11/08/18 Insulin Glargine,Hum.rec.anlog 25 unit SQ QHS 11/08/18 [Lantus] Insulin Lispro [Humalog Kwikpen] 100 unit SQ 11/08/18 Levothyroxine [Synthroid] 50 mcg PO DAILY 11/08/18 Melatonin 10 mg PO QHS 11/08/18 Quetiapine Fumarate [Seroquel] 100 mg PO DAILY 11/08/18 Quetiapine Fumarate [Seroquel] 300 mg PO QHS 11/08/18 Saxagliptin Hydrochloride [Onglyza] 5 mg PO DAILY 11/08/18 cycloBENZAPRine HCl [Flexeril] 5 mg PO Q6H PRN PRN 11/08/18 Amlodipine [Norvasc] 5 mg PO DAILY 07/08/20 Atorvastatin Calcium 40 mg PO QHS 07/08/20 Cholecalciferol (VIT D3) [Vitamin 1,000 unit PO BID 07/08/20 D] Furosemide [Lasix] 20 mg PO DAILY 07/08/20 Guaifenesin [Robitussin] 10 ml PO Q4H PRN PRN 07/08/20 Insulin Glargine,Hum.rec.anlog 18 unit SQ QHS 07/08/20 [Lantus] Insulin Lispro [Humalog] 100 unit SQ DAILY 07/08/20 Levothyroxine [Synthroid] 50 mcg PO DAILY 07/08/20 Lisinopril 40 mg PO DAILY 07/08/20 Melatonin 10 mg PO QHS 07/08/20 Omeprazole [Prilosec] 20 mg PO BID 07/08/20 Oxcarbazepine [Trileptal] 600 mg PO BID 07/08/20 Polyethylene Glycol 3350 [Miralax] 17 gm PO DAILY 07/08/20 Potassium 20 mg PO DAILY 07/08/20 Quetiapine Fumarate 1 tab PO BID 07/08/20 Risperidone [Risperdal] 3 mg PO BID 07/08/20 Saxagliptin HCl [Onglyza] 5 mg PO DAILY 07/08/20 Senna [Senokot] 2 tab PO DAILY 07/08/20 busPIRone [Buspar] 15 mg PO BID 07/08/20 cycloBENZAPRine HCl [Flexeril] 10 mg PO PRN PRN 07/08/20 Bisacodyl 1 supp.rect RECTAL Q72H PRN 08/03/20 Ibuprofen 400 mg PO Q6H PRN 08/03/20 Surgical History: cholecystectomy, - Psychiatric History: Bipolar, Depression Lives: - - Assisted living. Smoking Status: Never smoker Alcohol: None Drugs: None - *Family History Maternal History Items: Hypertension Paternal History Items: No pertinent history Review of Systems Constitutional: Denies: Anorexia, Chills, Fever, Weakness Eyes: Denies: Blurred vision, Double vision, Drainage, Redness, Vision Change HEENT: Denies: Difficulty Hearing, Dysphasia, Ear Pain, Eye Pain, Nasal Congestion, Sore Throat Cardiovascular: Denies: Chest Pain, Chest Pressure, Edema, Heaviness, Palpitations, Syncope Respiratory: Denies: Cough, Hemoptysis, Pleuritic Pain, Shortness of Breath, Sputum production, Wheezing Gastrointestinal: Denies: Abdominal Pain, Constipation, Diarrhea, Nausea, Vomiting Genitourinary: Denies: Dysuria, Frequency, Hematuria Musculoskeletal: Denies: Arm Pain, Back Pain, Foot Pain Skin: Denies: Dryness, Rash Neurological: Denies: Balance problems, Blurred vision, Double vision, Change in Speech, Slurred speech, Confusion, Incoordination, Numbness Psychiatric: Reports: Depression. Denies: Anxiety Endocrine: Denies: Change in Body Habitus, Polydipsia, Polyuria VTE Information - Inpt Only VTE Present on Admission: No VTE Mechan Device Prophylaxis: None VTE Pharm Prophylaxis ordered?: Yes - Physical Exam Vitals/I&O's: Vital Signs Temp Pulse Resp BP Pulse Ox 98.5 F 65 19 H 158/70 H 99 08/03/20 19:14 08/03/20 20:31 08/03/20 20:31 08/03/20 20:31 08/03/20 20:31 Oxygen Delivery Method Room Air Weight: 242 lb 8.136 oz Body Mass Index (BMI) 36.8 Finger Stick Blood Glucose 106 Intake and Output for Last 24 Hours 08/01/20 08/02/20 08/03/20 23:59 23:59 23:59 Intake Total 999 / 999 Balance 1000 / 999 General: Alert, Oriented x3, Cooperative, No apparent distress HEENT: Atraumatic, PERRLA, EOMI, Normocephalic Oral: Moist Mucosa, No Gingival or Mucosal Lesions/ Ulcerations Neck: Supple, No JVD, Negative Carotid Bruits, Trachea Midline, Thyroid Normal Size and Texture Lungs: Clear to auscultation, Normal air movement, No wheeze, No rales, Diminished Cardiovascular: Regular rate, Regular Rhythm, Normal S1, Normal S2, PMI Normal Abdomen: Bowel Sounds Present, Soft, Non Tender, Non-Distended, No Hepato- splenomegaly, Obese Extremities: No clubbing, No cyanosis, Edema - Trace edema. Skin: No rashes, No breakdown Lymphatic: No Cervical, Supraclavicular, or Inguinal Adenopathy Neurological: Cranial nerves II-XII grossly intact, Motor Exam 5/5 strength throughout Psych/Mental Status: Normal Affect, Appropriate, Alert and oriented to time, place, person, mood and affect Laboratory Results 08/03/20 19:40: WBC 5.3, RBC 4.20 L, Hgb 10.6 L, Hct 31.6 L, MCV 75.2 L, MCH 25.2 L, MCHC 33.5, RDW Std Deviation 41.9, RDW Coeff of Celine 15.4 H, Plt Count 231, MPV 9.6, Immature Gran % (Auto) 0.600, Neut % (Auto) 68.8, Lymph % (Auto) 17.5 L, [place] % (Auto) 12.7 H, Eos % (Auto) 0.2, Baso % (Auto) 0.2, Absolute Neuts (auto) 3.6, Absolute Lymphs (auto) 0.92, Nucleated RBC % 0 08/03/20 19:40: Sodium 113 L*, Potassium 4.3, Chloride 80 L, Carbon Dioxide 28.0, Anion Gap 5, BUN 8, Creatinine 0.97, Estim Creat Clear Calc 64.64, Est GFR (MDRD) Af Amer 97, Est GFR (MDRD) Non-Af 80, BUN/Creatinine Ratio 8.2 L, Glucose 144 H, Calcium 8.2 L 08/03/20 19:40: Oxcarbazepine Pending Assessment/Plan All Active Problems (This Medical Record has been edited. Action required.) Severe hyponatremia (Acute) This is a 74 years old male patient presented to the emergency room from the hospital for special care because of abnormal labs, sodium was 115 mmol/L and upon repeat BMP at the ED, sodium level was 113 and patient is being admitted for evaluation and treatment. #1 severe hyponatremia: Asymptomatic. Baseline sodium level has been in the range of 130-140, admission sodium was 113. Patient has no symptoms, no reported seizure. Vital signs are stable. Patient denied recent change or adjustment to his medications. This is probably due to medications side effects. Patient is on Depakote, Trileptal, HCTZ and Lasix. Trileptal and Depakote can cause SIADH. LFT was unremarkable. Plan: Admit to PCU, cardiac monitoring, chest x-ray, continue IV fluids with normal saline, serum osmolality, urine osmolality, urine sodium, urine potassium, urine chloride, urine calcium, urine creatinine random, TSH, serum magnesium, repeat sodium later tonight, repeat CBC and BMP tomorrow morning, PT OT evaluation and treatment. #2 type 2 diabetes mellitus: Blood sugars 144, pseudohyponatremia ruled out. Hemoglobin A1c was 7.8% 2 months ago. Plan: ADA diet, Accu-Cheks, insulin siding scale, continue Lantus and Humalog, continue Actos and Onglyza. #3 hypertension: Blood pressure stable, continue Norvasc and lisinopril, hold Lasix and HCTZ. #4 hypothyroidism: We will check TSH, continue levothyroxine. #5 depression/bipolar disorder: #6 GERD: Continue PPI. #7 hyperlipidemia: Continue statins. #8 DVT prophylaxis: Subcu Lovenox. This note was generated with [employer] dictation software. It may contain incorrect words, spelling, and punctuation that were not noted in checking the note before signing. Inpatient E&M: 50108 Init Hosp L2
--- NOTE | 2020-08-03 21:25 | PCS.PANDOC ---
Addendum entered by Madyson Velazco 08/03/20 22:57: Date: 08/04/20 Time: 21:25 Original Note: PANDEMIC DOCUMENTATION INITIATED: Date: Time:
[2020-08-03] MEDS: 0.9% Normal Saline 1,000 ML 75 ML IV (21:48)
[2020-08-03 21:57] LABS: Urine Chloride 101 mmol/L (Not Establ.); Urine Sodium 82 mmol/L (Not Establ.)
--- NOTE | 2020-08-03 22:00 | RAD_ITS ---
STUDY: X-RAY CHEST REASON FOR EXAM: Male, 74 years old. HYPONATREMIA TECHNIQUE: Single AP portable view of the chest. COMPARISON: 11/28/2015 FINDINGS: The lungs are clear and expanded. There is no demonstrated pleural abnormality. Normal size heart. Normal mediastinum and naren. Normal visualized pulmonary arteries. Normal visualized aortic arch and descending thoracic aorta. Normal visualized thoracic spine. Normal visualized ribs, clavicles, and shoulders. There is no demonstrated abnormality of the visualized soft tissue structures of the upper abdomen. RAD/Chest 1 View (Portable) IMPRESSION: Normal x-ray examination of the chest. Electronically Signed: Jonathan Howe MD at 7:10 EST Tel , Service support ,
[2020-08-03] MEDS: 0.9% Saline Lock 10 ML Syringe IV (22:01)
[2020-08-03] MEDS: Acetaminophen 325 MG Tablet 650 MG PO (22:24)
[2020-08-03 22:36] LABS: Bedside Glucose 134 mg/dL (70-110)
[2020-08-03 22:49] LABS: Magnesium 1.6 mg/dL (1.6-2.6); Thyroid Stim Hormone (TSH) 1.36 uIU/mL (0.358-3.74)
[2020-08-03 22:56] LABS: Osmolality, Urine 353 mOsm/KG
[2020-08-03 23:06] LABS: Calcium, Urine (Random) 10.7 mg/dL (Not Estab.)
[2020-08-03 23:06] LABS: Osmolality, Serum 235 mOsm/KG (280-301)
[2020-08-04] VITALS (10 sets, daily range): BP systolic 136–168; BP diastolic 52–77; PULSE 58–70; RESP 18; TEMP 36.2–37.1; O2SAT 97–100
[2020-08-04 03:10] LABS: Absolute Lymphocyte Count 1.05 X10^3/uL (0.83-4.51); Basophil# 0.01 X10^3/uL; Basophil% 0.3 % (0-1); Eosinophil# 0.02 X10^3/uL; Eosinophils% 0.6 % (0-5); Hematocrit 27.4 % (40-54); Hemoglobin 9.2 g/dL (13.0-16.5); Lymphocyte # 1.05 X10^3/ul (4.0); Lymphocyte % 29.1 % (19-41); Mean Corp Hgb Conc 33.6 g/dL (32-36); Mean Corpuscular Hgb 25.1 pg (27.0-32.0); Mean Corpuscular Volume 74.9 fL (80-94); Mean Platelet Vol. 8.9 fl (6.2-12.0); Monocyte# 0.52 X10^3/uL; Monocyte% 14.4 % (0-10); NRBC Flagged by Analyzer 0 % (0-5); Neutrophil % 55.3 % (47-70); Platelet Count 188 K/mm3 (150-450); RBC Distribution Width CV 15.4 % (11.6-14.6); RBC Distribution Width SD 41.9 fl (35.1-43.9); Red Blood Count 3.66 M/mm3 (4.6-6.2); White Blood Count 3.6 K/mm3 (4.4-11.0)
[2020-08-04 03:31] LABS: Anion Gap 7 (5-15); BUN 8 mg/dL (7-18); Calcium,Total 7.6 mg/dL (8.5-10.1); Chloride 84 mmol/L (98-107); EST Glomerular Filtration Rate 101 mL/min (>60); Est Glom Filt Rate - Afr Amer 122 mL/min (>60); Glucose 98 mg/dL (74-106); Sodium Level 115 mmol/L (136-145)
[2020-08-04] MEDS: Levothyroxine 50 MCG Tablet PO (06:45)
[2020-08-04] MEDS: Senna/Docusate Sodium 1 Tablet 2 TABLET PO ×2 (06:45→21:08)
[2020-08-04 06:56] LABS: Bedside Glucose 95 mg/dL (70-110)
--- NOTE | 2020-08-04 07:02 | NURSING ---
Update given to Bryanna WELCH at [facility].
--- NOTE | 2020-08-04 07:37 | PN_ITS ---
Patient Problems: Active and Suspected Problems (This Medical Record has been edited. Action required.) Hyponatremia (Acute) Severe hyponatremia (Acute) Reason for Visit: Severe hyponatremia. Objective: Patient heart rate and blood pressure controlled. Patient was admitted with hyponatremia. He has been feeling weak, imbalance and loss of equilibrium. He also fell down and had head laceration which was stapled in the ED on 07/08. Patient denies any history of seizure. He had febrile convulsions when he was child. Denies history of chronic heart disease lung disease. Never been a smoker. Has mild bilateral leg swelling. Heart rate and blood pressure in acceptable limit. One time patient had blood pressure 181/88 but currently in normal range. Physical exam General: Alert, Oriented x3, Cooperative HEENT: Atraumatic, PERRLA, EOMI, Normocephalic Oral: No Gingival or Mucosal Lesions/ Ulcerations Neck: Supple, No JVD, Negative Carotid Bruits Lungs: Air entry diminished in bilateral lung bases. No crepitation/rhonchi Cardiovascular: Regular rate, Regular Rhythm, Normal S1, Normal S2, No murmurs Abdomen: Bowel Sounds Present, Soft, Non Tender, Non-Distended : No renal angle tenderness. No suprapubic tenderness. Extremities: 2+ bilateral leg edema, Capillary Refill Less than 3 Seconds Skin: No rashes, No breakdown Musculoskeletal: No Tenderness to Palpation of Joints or Extremities Neurological: Cranial nerves II-XII grossly intact, Deep Tendon Reflexes 2+/4 and Symmetrical, Neuro grossly intact Psych/Mental Status: Normal Affect, Appropriate. Vitals/I&O's: Vital Signs Temp Pulse Resp BP Pulse Ox 97.6 F L 60 18 136/69 H 98 08/04/20 04:02 08/04/20 04:02 08/04/20 04:02 08/04/20 04:02 08/04/20 04:02 Oxygen Delivery Method Room Air Weight: 229 lb 0.964 oz Body Mass Index (BMI) 36.9 Finger Stick Blood Glucose 106 Intake and Output for Last 24 Hours 08/02/20 08/03/20 08/04/20 23:59 23:59 23:59 Intake Total 1240 / 1240 240 / 240 Output Total 600 / 600 675 / 675 Balance 640 / 640 -435 / -435 Laboratory Results 08/03/20 19:40: WBC 5.3, RBC 4.20 L, Hgb 10.6 L, Hct 31.6 L, MCV 75.2 L, MCH 25.2 L, MCHC 33.5, RDW Std Deviation 41.9, RDW Coeff of Celine 15.4 H, Plt Count 231, MPV 9.6, Immature Gran % (Auto) 0.600, Neut % (Auto) 68.8, Lymph % (Auto) 17.5 L, [place] % (Auto) 12.7 H, Eos % (Auto) 0.2, Baso % (Auto) 0.2, Absolute Neuts (auto) 3.6, Absolute Lymphs (auto) 0.92, Nucleated RBC % 0 08/03/20 19:40: Sodium 113 L*, Potassium 4.3, Chloride 80 L, Carbon Dioxide 28.0, Anion Gap 5, BUN 8, Creatinine 0.97, Estim Creat Clear Calc 64.64, Est GFR (MDRD) Af Amer 97, Est GFR (MDRD) Non-Af 80, BUN/Creatinine Ratio 8.2 L, Glucose 144 H, Calcium 8.2 L 08/03/20 19:40: Oxcarbazepine Pending 08/03/20 19:40: Magnesium 1.6, TSH 1.36 08/03/20 19:40: Serum Osmolality 235 L 08/03/20 21:33: Urine Osmolality 353, Ur Random Sodium 82, Ur Random Calcium 10.7, Urine Creatinine 56.40, Urine Potassium 40.0, Urine Chloride 101 08/03/20 22:22: POC Glucose 134 H 08/04/20 03:00: WBC 3.6 L, RBC 3.66 L, Hgb 9.2 L, Hct 27.4 L, MCV 74.9 L, MCH 25.1 L, MCHC 33.6, RDW Std Deviation 41.9, RDW Coeff of Celine 15.4 H, Plt Count 188, MPV 8.9, Immature Gran % (Auto) 0.300, Neut % (Auto) 55.3, Lymph % (Auto) 29.1, [place] % (Auto) 14.4 H, Eos % (Auto) 0.6, Baso % (Auto) 0.3, Absolute Neuts (auto) 2.0, Absolute Lymphs (auto) 1.05, Nucleated RBC % 0 08/04/20 03:00: Sodium 115 L*, Potassium 4.0, Chloride 84 L, Carbon Dioxide 24.0, Anion Gap 7, BUN 8, Creatinine 0.80, Estim Creat Clear Calc 73.10, Est GFR (MDRD) Af Amer 122, Est GFR (MDRD) Non-Af 101, BUN/Creatinine Ratio 10.0, Glucose 98, Calcium 7.6 L 08/04/20 06:42: POC Glucose 95 Current Medications Acetaminophen (Acetaminophen 325 Mg Tablet) 650 mg PO Q6H PRN PRN PRN Reason: Pain Score 1-10/Temp > 100.7 F Last Admin: 08/03/20 22:24 Dose: 650 mg Documented by: Amlodipine Besylate (Amlodipine 5 Mg Tablet) 5 mg PO DAILY [facility] Atorvastatin Calcium (Atorvastatin Calcium 40 Mg Tablet) 40 mg PO QHS [facility] Buspirone HCl (Buspirone 15 Mg Tablet) 15 mg PO BID [facility] Cyclobenzaprine HCl (Cyclobenzaprine Hcl 5 Mg Tablet) 5 mg PO Q6H PRN PRN PRN Reason: SPASMS Enoxaparin Sodium (Enoxaparin 40 Mg/0.4 Ml Syringe) 40 mg SC DAILY [facility] Sodium Chloride () 1,000 mls @ 75 mls/hr IV .[id number] [facility] Stop: 08/04/20 10:54 Last Admin: 08/03/20 21:48 Dose: 75 mls/hr Documented by: Sodium Chloride () 250 mls @ 15 mls/hr IV .[id number] PRN PRN Reason: Saline Flush Sodium Chloride () 250 mls @ 15 mls/hr IV .[id number] PRN PRN Reason: Additional IVPB Infusion Insulin Glargine (Insulin Glargine 100 Units/Ml Pen) 18 units SC QHS [facility] Insulin Human Lispro (Insulin Lispro 100 Unit/Ml Insuln.Pen) 0 unit SC [facility]; Protocol Last Admin: 08/04/20 06:45 Dose: Not Given Documented by: Levothyroxine Sodium (Levothyroxine 50 Mcg Tablet) 50 mcg PO DAILY@0600 [facility] Last Admin: 08/04/20 06:45 Dose: 50 mcg Documented by: Lisinopril (Lisinopril 40 Mg Tablet) 40 mg PO DAILY [facility] Melatonin (Melatonin 10 Mg Tablet) 10 mg PO QHS [facility] Nutritional Formula (Lactose Free) (Glucerna Shake 120 Ml Liquid) 120 ml PO TIDCM [facility] Ondansetron HCl (Ondansetron 4 Mg/2 Ml Vial) 4 mg IV Q8H PRN PRN PRN Reason: NAUSEA/VOMITING Senna/Docusate Sodium (Senna/Docusate Sodium 1 Tablet) 2 tablet PO BID PRN PRN PRN Reason: Constipation Last Admin: 08/04/20 06:45 Dose: 2 tablet Documented by: Sodium Chloride (0.9% Saline Lock 10 Ml Syringe) 10 - 40 ml IV UD PRN PRN Reason: SALINE FLUSH Last Admin: 08/03/20 22:01 Dose: 10 ml Documented by: STROKE Vital Signs/Narrative: Vital Signs Temp Pulse Resp BP Pulse Ox 08/04/20 04:02 97.6 F L 60 18 136/69 H 98 08/04/20 03:57 58 L Medical Necessity - Tobacco Use Smoking Status: Never smoker Assessment/Plan All Active Problems (This Medical Record has been edited. Action required.) Hyponatremia (Acute) Severe hyponatremia (Acute) This is a 74 years old male patient presented to the emergency room from the assisted living because of abnormal labs, sodium was 115 mmol/L and upon repeat BMP at the ED, sodium level was 113 and patient is being admitted for evaluation and treatment. #1 severe hyponatremia, may be from medication side effect: Patient has nonspecific symptoms of generalized weakness, loss of balance for few weeks. Nonspecific symptoms of seizure, focal weakness or loss of consciousness. On IV fluid normal saline. Baseline sodium level has been in the range of 130-140, admission sodium was 113. Patient denied recent change or adjustment to his medications. This is probably due to medications side effects. Patient is on Depakote, Trileptal, HCTZ and Lasix. Trileptal and Depakote can cause SIADH. Magnesium 1.6. Urine osmolarity 353 more than serum osmolality 235. Urine sodium 32, potassium 40 chloride 101. 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 PT and OT evaluation. Nephrology consult. #2 type 2 diabetes mellitus: Blood sugars 144. Hemoglobin A1c was 7.8% 2 months ago. Hold oral hypoglycemic agents Blood sugar was on the lower range 95. Scheduled insulin Lantus dose on hold. #3 hypertension: Blood pressure stable, continue Norvasc and lisinopril, hold Lasix and HCTZ. #4 hypothyroidism: TSH 1.36 normal. Continue levothyroxine. #5 depression/bipolar disorder: On multiple antipsychotic medications including Depakote, Seroquel, Risperdal, BuSpar. Risperdal held. #6 GERD: Continue PPI. #7 hyperlipidemia: Continue statins. #8 DVT prophylaxis: Subcu Lovenox. Active Medications Acetaminophen (Acetaminophen 325 Mg Tablet) 650 mg PO Q6H PRN PRN PRN Reason: Pain Score 1-10/Temp > 100.7 F Last Admin: 08/03/20 22:24 Dose: 650 mg Documented by: Amlodipine Besylate (Amlodipine 5 Mg Tablet) 5 mg PO DAILY [facility] Last Admin: 08/04/20 09:58 Dose: 5 mg Documented by: Atorvastatin Calcium (Atorvastatin Calcium 40 Mg Tablet) 40 mg PO QHS [facility] Buspirone HCl (Buspirone 15 Mg Tablet) 15 mg PO BID [facility] Last Admin: 08/04/20 09:58 Dose: 15 mg Documented by: Cyclobenzaprine HCl (Cyclobenzaprine Hcl 5 Mg Tablet) 5 mg PO Q6H PRN PRN PRN Reason: SPASMS Enoxaparin Sodium (Enoxaparin 40 Mg/0.4 Ml Syringe) 40 mg SC DAILY [facility] Last Admin: 08/04/20 10:00 Dose: 40 mg Documented by: Sodium Chloride () 250 mls @ 15 mls/hr IV .[id number] PRN PRN Reason: Saline Flush Sodium Chloride () 250 mls @ 15 mls/hr IV .[id number] PRN PRN Reason: Additional IVPB Infusion Insulin Glargine (Insulin Glargine 100 Units/Ml Pen) 18 units SC QHS [facility] Insulin Human Lispro (Insulin Lispro 100 Unit/Ml Insuln.Pen) 0 unit SC ACHS [facility]; Protocol Last Admin: 08/04/20 10:57 Dose: Not Given Documented by: Levothyroxine Sodium (Levothyroxine 50 Mcg Tablet) 50 mcg PO DAILY@0600 [facility] Last Admin: 08/04/20 06:45 Dose: 50 mcg Documented by: Lisinopril (Lisinopril 40 Mg Tablet) 40 mg PO DAILY [facility] Last Admin: 08/04/20 09:58 Dose: 40 mg Documented by: Melatonin (Melatonin 10 Mg Tablet) 10 mg PO QHS [facility] Nutritional Formula (Lactose Free) (Glucerna Shake 120 Ml Liquid) 120 ml PO TIDCM [facility] Last Admin: 08/04/20 11:52 Dose: Not Given Documented by: Ondansetron HCl (Ondansetron 4 Mg/2 Ml Vial) 4 mg IV Q8H PRN PRN PRN Reason: NAUSEA/VOMITING Senna/Docusate Sodium (Senna/Docusate Sodium 1 Tablet) 2 tablet PO BID PRN PRN PRN Reason: Constipation Last Admin: 08/04/20 06:45 Dose: 2 tablet Documented by: Sodium Chloride (0.9% Saline Lock 10 Ml Syringe) 10 - 40 ml IV UD PRN PRN Reason: SALINE FLUSH Last Admin: 08/03/20 22:01 Dose: 10 ml Documented by: Clinical Impression(s) from Imaging Studies Chest X-Ray 08/03/20 22:00 IMPRESSION: Normal x-ray examination of the chest. [facility]
[2020-08-04] MEDS: Glucerna Shake 120 ML LIQUID PO (09:58)
[2020-08-04] MEDS: busPIRone 15 MG TABLET PO ×2 (09:58→21:09)
[2020-08-04] MEDS: Lisinopril 40 MG Tablet PO (09:58)
[2020-08-04] MEDS: amLODIPine 5 MG Tablet PO (09:58)
[2020-08-04] MEDS: Enoxaparin 40 MG/0.4 ML Syringe SC (10:00)
[2020-08-04 10:55] LABS: Bedside Glucose 149 mg/dL (70-110)
[2020-08-04 16:26] LABS: Bedside Glucose 129 mg/dL (70-110)
--- NOTE | 2020-08-04 17:17 | CON.PCM_ITS ---
Consultation - Renal PCP/ Referring MD: Requesting physician: [] Primary care physician: Dr. Parviz Acevedo MD - History of Present Illness History of Present Illness: The patient is a 74 year old M PMH of bipolar disorder, depression, DM, HPLD, hy pothyroidism , and GERD. Patient was sent from his assisted living to [facility] for abnormal Na level Inn ED he was found to have Na level at 113. Patient was given 2L of NS and started on NS at 75 cc/hour which was stopped earlier today Patient admitted having balance loss and fell last month. No headache No nausea No blurry vision Patient is taking multiple medications for bipolar disorder like Depakote, risperidone , seroquel and Buspar . Not on HCTZ Patient is taking lasix No diarrhea. ROS: 12 systems review is negative except what mentioned in HPI[] - Allergies Allergies: Allergies hydrochlorothiazide [From Maxzide] Allergy (Verified 08/03/20 19:17) Unknown triamterene [From Maxzide] Allergy (Verified 08/03/20 19:17) Unknown - Current Medications Current Medications: Current Medications Acetaminophen (Acetaminophen 325 Mg Tablet) 650 mg PO Q6H PRN PRN PRN Reason: Pain Score 1-10/Temp > 100.7 F Last Admin: 08/03/20 22:24 Dose: 650 mg Documented by: Amlodipine Besylate (Amlodipine 5 Mg Tablet) 5 mg PO DAILY [facility] Last Admin: 08/04/20 09:58 Dose: 5 mg Documented by: Atorvastatin Calcium (Atorvastatin Calcium 40 Mg Tablet) 40 mg PO QHS [facility] Buspirone HCl (Buspirone 15 Mg Tablet) 15 mg PO BID [facility] Last Admin: 08/04/20 09:58 Dose: 15 mg Documented by: Cyclobenzaprine HCl (Cyclobenzaprine Hcl 5 Mg Tablet) 5 mg PO Q6H PRN PRN PRN Reason: SPASMS Enoxaparin Sodium (Enoxaparin 40 Mg/0.4 Ml Syringe) 40 mg SC DAILY [facility] Last Admin: 08/04/20 10:00 Dose: 40 mg Documented by: Sodium Chloride () 250 mls @ 15 mls/hr IV .[id number] PRN PRN Reason: Saline Flush Sodium Chloride () 250 mls @ 15 mls/hr IV .[id number] PRN PRN Reason: Additional IVPB Infusion Insulin Glargine (Insulin Glargine 100 Units/Ml Pen) 18 units SC QHS [facility] Insulin Human Lispro (Insulin Lispro 100 Unit/Ml Insuln.Pen) 0 unit SC [facility]; Protocol Last Admin: 08/04/20 16:07 Dose: Not Given Documented by: Levothyroxine Sodium (Levothyroxine 50 Mcg Tablet) 50 mcg PO DAILY@0600 [facility] Last Admin: 08/04/20 06:45 Dose: 50 mcg Documented by: Lisinopril (Lisinopril 40 Mg Tablet) 40 mg PO DAILY [facility] Last Admin: 08/04/20 09:58 Dose: 40 mg Documented by: Melatonin (Melatonin 10 Mg Tablet) 10 mg PO QHS [facility] Nutritional Formula (Lactose Free) (Glucerna Shake 120 Ml Liquid) 120 ml PO TIDCM [facility] Last Admin: 08/04/20 16:08 Dose: Not Given Documented by: Ondansetron HCl (Ondansetron 4 Mg/2 Ml Vial) 4 mg IV Q8H PRN PRN PRN Reason: NAUSEA/VOMITING Polyethylene Glycol (Polyethylene Glycol 3350 17 Gm Packet) 17 gm PO DAILY [facility] Psyllium Hydrophilic Mucilloid (Psyllium 1 Packet) 1 packet PO BID [facility] Quetiapine Fumarate (Quetiapine 100 Mg Tablet) 100 mg PO DAILY [facility] Quetiapine Fumarate (Quetiapine 100 Mg Tablet) 300 mg PO QHS [facility] Senna/Docusate Sodium (Senna/Docusate Sodium 1 Tablet) 2 tablet PO BID [facility] Sodium Chloride (0.9% Saline Lock 10 Ml Syringe) 10 - 40 ml IV UD PRN PRN Reason: SALINE FLUSH Last Admin: 08/03/20 22:01 Dose: 10 ml Documented by: - Past Medical History Past Medical History (Chronic Problems): Chronic Problems (This Medical Record has been edited. Action required.) Depression (Chronic) Type 2 diabetes mellitus (Chronic) Hyperlipidemia (Chronic) Hypothyroidism (Chronic) Hypertension (Chronic) GERD (gastroesophageal reflux disease) (Chronic) Bipolar disorder (Chronic) - Past Surgical History Surgical History: cholecystectomy, - - Social History Smoking Status: Never smoker Alcohol: None Drugs: None - Family History Maternal History Items: Hypertension Paternal History Items: No pertinent history Patient Problems: Active and Suspected Problems (This Medical Record has been edited. Action required.) Hyponatremia (Acute) Severe hyponatremia (Acute) - Physical Exam Vitals/I&O's: Vital Signs Temp Pulse Resp BP Pulse Ox 97.6 F L 68 18 160/60 H 97 08/04/20 15:50 08/04/20 15:50 08/04/20 15:50 08/04/20 15:50 08/04/20 15:50 Oxygen Delivery Method Room Air Weight: 103.9 kg Body Mass Index (BMI) 36.9 Finger Stick Blood Glucose 106 Intake and Output for Last 24 Hours 08/02/20 08/03/20 08/04/20 23:59 23:59 23:59 Intake Total 1240 / 1240 1480 / 1480 Output Total 600 / 600 1075 / 1075 Balance 640 / 640 405 / 405 General: Alert, Oriented x3 HEENT: Atraumatic Neck: Supple, No JVD Lungs: Clear to auscultation, Normal air movement, No rhonchi, No wheeze Cardiovascular: Regular rate, Regular Rhythm, Normal S1, Normal S2 Abdomen: Bowel Sounds Present, Soft, Non Tender Extremities: No clubbing, No cyanosis, Edema - +1 edema of LE Skin: No rashes Musculoskeletal: No Tenderness to Palpation of Joints or Extremities Lymphatic: No Cervical, Supraclavicular, or Inguinal Adenopathy Neurological: Cranial nerves II-XII grossly intact, Neuro grossly intact Psych/Mental Status: Appropriate Laboratory Results 08/03/20 19:40: WBC 5.3, RBC 4.20 L, Hgb 10.6 L, Hct 31.6 L, MCV 75.2 L, MCH 25.2 L, MCHC 33.5, RDW Std Deviation 41.9, RDW Coeff of Celine 15.4 H, Plt Count 231, MPV 9.6, Immature Gran % (Auto) 0.600, Neut % (Auto) 68.8, Lymph % (Auto) 17.5 L, [place] % (Auto) 12.7 H, Eos % (Auto) 0.2, Baso % (Auto) 0.2, Absolute Neuts (auto) 3.6, Absolute Lymphs (auto) 0.92, Nucleated RBC % 0 08/03/20 19:40: Sodium 113 L*, Potassium 4.3, Chloride 80 L, Carbon Dioxide 28.0, Anion Gap 5, BUN 8, Creatinine 0.97, Estim Creat Clear Calc 64.64, Est GFR (MDRD) Af Amer 97, Est GFR (MDRD) Non-Af 80, BUN/Creatinine Ratio 8.2 L, Glucose 144 H, Calcium 8.2 L 08/03/20 19:40: Oxcarbazepine Pending 08/03/20 19:40: Magnesium 1.6, TSH 1.36 08/03/20 19:40: Serum Osmolality 235 L 08/03/20 21:33: Urine Osmolality 353, Ur Random Sodium 82, Ur Random Calcium 10.7, Urine Creatinine 56.40, Urine Potassium 40.0, Urine Chloride 101 08/03/20 22:22: POC Glucose 134 H 08/04/20 03:00: WBC 3.6 L, RBC 3.66 L, Hgb 9.2 L, Hct 27.4 L, MCV 74.9 L, MCH 25.1 L, MCHC 33.6, RDW Std Deviation 41.9, RDW Coeff of Celine 15.4 H, Plt Count 188, MPV 8.9, Immature Gran % (Auto) 0.300, Neut % (Auto) 55.3, Lymph % (Auto) 29.1, [place] % (Auto) 14.4 H, Eos % (Auto) 0.6, Baso % (Auto) 0.3, Absolute Neuts (auto) 2.0, Absolute Lymphs (auto) 1.05, Nucleated RBC % 0 08/04/20 03:00: Sodium 115 L*, Potassium 4.0, Chloride 84 L, Carbon Dioxide 24.0, Anion Gap 7, BUN 8, Creatinine 0.80, Estim Creat Clear Calc 73.10, Est GFR (MDRD) Af Amer 122, Est GFR (MDRD) Non-Af 101, BUN/Creatinine Ratio 10.0, Glucose 98, Calcium 7.6 L 08/04/20 06:42: POC Glucose 95 08/04/20 10:48: POC Glucose 149 H 08/04/20 16:06: POC Glucose 129 H Current Medications Acetaminophen (Acetaminophen 325 Mg Tablet) 650 mg PO Q6H PRN PRN PRN Reason: Pain Score 1-10/Temp > 100.7 F Last Admin: 08/03/20 22:24 Dose: 650 mg Documented by: Amlodipine Besylate (Amlodipine 5 Mg Tablet) 5 mg PO DAILY [facility] Last Admin: 08/04/20 09:58 Dose: 5 mg Documented by: Atorvastatin Calcium (Atorvastatin Calcium 40 Mg Tablet) 40 mg PO QHS [facility] Buspirone HCl (Buspirone 15 Mg Tablet) 15 mg PO BID [facility] Last Admin: 08/04/20 09:58 Dose: 15 mg Documented by: Cyclobenzaprine HCl (Cyclobenzaprine Hcl 5 Mg Tablet) 5 mg PO Q6H PRN PRN PRN Reason: SPASMS Enoxaparin Sodium (Enoxaparin 40 Mg/0.4 Ml Syringe) 40 mg SC DAILY [facility] Last Admin: 08/04/20 10:00 Dose: 40 mg Documented by: Sodium Chloride () 250 mls @ 15 mls/hr IV .[id number] PRN PRN Reason: Saline Flush Sodium Chloride () 250 mls @ 15 mls/hr IV .[id number] PRN PRN Reason: Additional IVPB Infusion Insulin Glargine (Insulin Glargine 100 Units/Ml Pen) 18 units SC QHS [facility] Insulin Human Lispro (Insulin Lispro 100 Unit/Ml Insuln.Pen) 0 unit [facility]; Protocol Last Admin: 08/04/20 16:07 Dose: Not Given Documented by: Levothyroxine Sodium (Levothyroxine 50 Mcg Tablet) 50 mcg PO DAILY@0600 [facility] Last Admin: 08/04/20 06:45 Dose: 50 mcg Documented by: Lisinopril (Lisinopril 40 Mg Tablet) 40 mg PO DAILY [facility] Last Admin: 08/04/20 09:58 Dose: 40 mg Documented by: Melatonin (Melatonin 10 Mg Tablet) 10 mg PO QHS [facility] Nutritional Formula (Lactose Free) (Glucerna Shake 120 Ml Liquid) 120 ml PO TIDCM [facility] Last Admin: 08/04/20 16:08 Dose: Not Given Documented by: Ondansetron HCl (Ondansetron 4 Mg/2 Ml Vial) 4 mg IV Q8H PRN PRN PRN Reason: NAUSEA/VOMITING Polyethylene Glycol (Polyethylene Glycol 3350 17 Gm Packet) 17 gm PO DAILY [facility] Psyllium Hydrophilic Mucilloid (Psyllium 1 Packet) 1 packet PO BID [facility] Quetiapine Fumarate (Quetiapine 100 Mg Tablet) 100 mg PO DAILY [facility] Quetiapine Fumarate (Quetiapine 100 Mg Tablet) 300 mg PO QHS [facility] Senna/Docusate Sodium (Senna/Docusate Sodium 1 Tablet) 2 tablet PO BID [facility] Sodium Chloride (0.9% Saline Lock 10 Ml Syringe) 10 - 40 ml IV UD PRN PRN Reason: SALINE FLUSH Last Admin: 08/03/20 22:01 Dose: 10 ml Documented by: Assessment/Plan All Active Problems (This Medical Record has been edited. 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 does not look dry in physical exam Na level improved with IVF fluid from 113 to 115 over 7 hours Last Na level from today at 3 am. Will check Na level now to tack Na correction rate Na correction rate should be 6-8 mmol/L in a day continue holding lasix for now Will repeat urine osmo and Urine Na No need for 3% NaCl
[2020-08-04 18:14] LABS: Sodium Level 116 mmol/L (136-145)
[2020-08-04] MEDS: MELATONIN 10 MG TABLET PO (21:08)
[2020-08-04] MEDS: Atorvastatin Calcium 40 MG Tablet PO (21:08)
[2020-08-04] MEDS: QUEtiapine 100 MG Tablet 300 MG PO (21:08)
[2020-08-04] MEDS: Insulin Lispro 100 UNIT/ML INSULN.PEN SC (21:09)
[2020-08-04 21:25] LABS: Bedside Glucose 155 mg/dL (70-110)
[2020-08-04 22:19] LABS: Sodium Level 115 mmol/L (136-145)
[2020-08-04 23:56] LABS: Urine Sodium 65 mmol/L (Not Establ.)
[2020-08-05] VITALS (11 sets, daily range): BP systolic 145–170; BP diastolic 64–82; PULSE 53–90; RESP 18; TEMP 36.7–37.1; O2SAT 97–98
[2020-08-05 00:28] LABS: Osmolality, Urine 251 mOsm/KG
[2020-08-05 06:14] LABS: Absolute Neutrophil Count 1.9 X10^3/uL (2.0-7.7); Basophil# 0.01 X10^3/uL; Basophil% 0.3 % (0-1); Eosinophil# 0.03 X10^3/uL; Eosinophils% 0.9 % (0-5); Hematocrit 29.3 % (40-54); Hemoglobin 10.2 g/dL (13.0-16.5); Lymphocyte % 26.4 % (19-41); Mean Corp Hgb Conc 34.8 g/dL (32-36); Mean Corpuscular Hgb 26.3 pg (27.0-32.0); Mean Corpuscular Volume 75.5 fL (80-94); Mean Platelet Vol. 9.7 fl (6.2-12.0); Monocyte# 0.53 X10^3/uL; Monocyte% 15.5 % (0-10); NRBC Flagged by Analyzer 0 % (0-5); Neutrophil # 1.93 X10^3/uL (2.7-7.7); Neutrophil % 56.6 % (47-70); Platelet Count 210 K/mm3 (150-450); RBC Distribution Width CV 15.6 % (11.6-14.6); RBC Distribution Width SD 41.2 fl (35.1-43.9); Red Blood Count 3.88 M/mm3 (4.6-6.2); White Blood Count 3.4 K/mm3 (4.4-11.0)
[2020-08-05] MEDS: Levothyroxine 50 MCG Tablet PO (06:34)
[2020-08-05 06:41] LABS: Bedside Glucose 93 mg/dL (70-110)
[2020-08-05 06:49] LABS: Valproic Acid (Depakene) Level < 3 ug/mL (50-100)
[2020-08-05 06:51] LABS: AST(SGOT) 16 U/L (15-37); Alanine Aminotransfer ALT/SGPT 18 U/L (16-61); Alkaline Phosphatase 127 U/L (45-117); Anion Gap 5 (5-15); BUN 7 mg/dL (7-18); BUN/Creat Ratio 9.4 RATIO (10-20); Bilirubin, Direct 0.16 mg/dL (0.00-0.30); Calcium,Total 8.1 mg/dL (8.5-10.1); Chloride 86 mmol/L (98-107); Creatinine, Serum 0.74 mg/dL (0.70-1.30); EST Glomerular Filtration Rate 110 mL/min (>60); Est Glom Filt Rate - Afr Amer 132 mL/min (>60); Estimated Creatinine Clearance 58.48 ml/min; Glucose 75 mg/dL (74-106); Potassium 3.8 mmol/L (3.5-5.1); Sodium Level 117 mmol/L (136-145)
--- NOTE | 2020-08-05 09:14 | CASEMGMT ---
CLAUDIO called [facility] and spoke with Poonam. She said patient is from their assisted living. SW faxed updates to her. SW to follow for appropriate d/c plan. Marva THOMSON RECEPTION CLERK
[2020-08-05] MEDS: Polyethylene Glycol 3350 17 GM PACKET PO (09:34)
[2020-08-05] MEDS: Psyllium 1 PACKET PO (09:34)
[2020-08-05] MEDS: Lisinopril 40 MG Tablet PO (09:34)
[2020-08-05] MEDS: Senna/Docusate Sodium 1 Tablet 2 TABLET PO (09:34)
[2020-08-05] MEDS: amLODIPine 5 MG Tablet PO (09:35)
[2020-08-05] MEDS: busPIRone 15 MG TABLET PO ×2 (09:35→22:30)
[2020-08-05] MEDS: QUEtiapine 100 MG Tablet PO (09:35)
[2020-08-05] MEDS: 0.9% Normal Saline 1,000 ML 75 ML IV (09:40)
[2020-08-05] MEDS: Enoxaparin 40 MG/0.4 ML Syringe SC (09:57)
[2020-08-05] MEDS: Glucerna Shake 120 ML LIQUID PO ×2 (10:04→12:57)
[2020-08-05] MEDS: Insulin Lispro 100 UNIT/ML INSULN.PEN SC (11:54)
[2020-08-05 12:00] LABS: Bedside Glucose 178 mg/dL (70-110)
--- NOTE | 2020-08-05 13:11 | PCM.PN.REN ---
Patient Problems: Active and Suspected Problems (This Medical Record has been edited. Action required.) Hyponatremia (Acute) Severe hyponatremia (Acute) Subjective: no dizziness no n/v/thomas no c/o - Physical Exam Vitals/I&O's: Vital Signs Temp Pulse Resp BP Pulse Ox 98.2 F 78 18 170/75 H 97 08/05/20 09:29 08/05/20 09:29 08/05/20 09:29 08/05/20 09:29 08/05/20 09:29 Oxygen Delivery Method Room Air Weight: 103.9 kg Body Mass Index (BMI) 36.9 Finger Stick Blood Glucose 106 Intake and Output for Last 24 Hours 08/03/20 08/04/20 08/05/20 23:59 23:59 23:59 Intake Total 1240 / 1240 1960 / 2160 400 / 400 Output Total 600 / 600 1925 / 1925 1625 / 1625 Balance 640 / 640 35 / 235 -1225 / -1225 General: Alert, Cooperative HEENT: Atraumatic, Normocephalic Neck: Supple, Trachea Midline Lungs: Clear to auscultation, Normal air movement Cardiovascular: Regular rate, Regular Rhythm, Normal S1, Normal S2 Abdomen: Bowel Sounds Present, Soft Extremities: Edema Laboratory Results 08/04/20 16:06: POC Glucose 129 H 08/04/20 17:45: Sodium 116 L* 08/04/20 21:04: POC Glucose 155 H 08/04/20 21:37: Sodium 115 L* 08/04/20 23:44: Ur Random Sodium 65 08/04/20 23:44: Urine Osmolality 251 08/05/20 05:45: Valproic Acid < 3 L 08/05/20 05:45: WBC 3.4 L, RBC 3.88 L, Hgb 10.2 L, Hct 29.3 L, MCV 75.5 L, MCH 26.3 L, MCHC 34.8, RDW Std Deviation 41.2, RDW Coeff of Celine 15.6 H, Plt Count 210, MPV 9.7, Immature Gran % (Auto) 0.300, Neut % (Auto) 56.6, Lymph % (Auto) 26.4, [place] % (Auto) 15.5 H, Eos % (Auto) 0.9, Baso % (Auto) 0.3, Absolute Neuts (auto) 1.9 L, Absolute Lymphs (auto) 0.90, Nucleated RBC % 0 08/05/20 05:45: Sodium 117 L*, Potassium 3.8, Chloride 86 L, Carbon Dioxide 26.0, Anion Gap 5, BUN 7, Creatinine 0.74, Estim Creat Clear Calc 58.48, Est GFR (MDRD) Af Amer 132, Est GFR (MDRD) Non-Af 110, BUN/Creatinine Ratio 9.4 L, Glucose 75, Calcium 8.1 L, Total Bilirubin 0.40, Direct Bilirubin 0.16, AST 16, ALT 18, Alkaline Phosphatase 127 H, Total Protein 6.0 L, Albumin 3.0 L, Globulin 3.0 08/05/20 06:29: POC Glucose 93 08/05/20 11:53: POC Glucose 178 H Current Medications Acetaminophen (Acetaminophen 325 Mg Tablet) 650 mg PO Q6H PRN PRN PRN Reason: Pain Score 1-10/Temp > 100.7 F Last Admin: 08/03/20 22:24 Dose: 650 mg Documented by: Amlodipine Besylate (Amlodipine 5 Mg Tablet) 5 mg PO DAILY [facility] Last Admin: 08/05/20 09:35 Dose: 5 mg Documented by: Atorvastatin Calcium (Atorvastatin Calcium 40 Mg Tablet) 40 mg PO QHS [facility] Last Admin: 08/04/20 21:08 Dose: 40 mg Documented by: Buspirone HCl (Buspirone 15 Mg Tablet) 15 mg PO BID [facility] Last Admin: 08/05/20 09:35 Dose: 15 mg Documented by: Cyclobenzaprine HCl (Cyclobenzaprine Hcl 5 Mg Tablet) 5 mg PO Q6H PRN PRN PRN Reason: SPASMS Enoxaparin Sodium (Enoxaparin 40 Mg/0.4 Ml Syringe) 40 mg SC DAILY [facility] Last Admin: 08/05/20 09:57 Dose: 40 mg Documented by: Sodium Chloride () 250 mls @ 15 mls/hr IV .[id number] PRN PRN Reason: Saline Flush Sodium Chloride () 250 mls @ 15 mls/hr IV .[id number] PRN PRN Reason: Additional IVPB Infusion Sodium Chloride () 1,000 mls @ 75 mls/hr IV .[id number] [facility] Stop: 08/05/20 20:44 Last Admin: 08/05/20 09:40 Dose: 75 mls/hr Documented by: Insulin Glargine (Insulin Glargine 100 Units/Ml Pen) 18 units SC QHS [facility] Last Admin: 08/04/20 21:09 Dose: 18 u Documented by: Insulin Human Lispro (Insulin Lispro 100 Unit/Ml Insuln.Pen) 0 unit SC [facility]; Protocol Last Admin: 08/05/20 11:54 Dose: 1 u Documented by: Levothyroxine Sodium (Levothyroxine 50 Mcg Tablet) 50 mcg PO DAILY@0600 [facility] Last Admin: 08/05/20 06:34 Dose: 50 mcg Documented by: Lisinopril (Lisinopril 40 Mg Tablet) 40 mg PO DAILY [facility] Last Admin: 08/05/20 09:34 Dose: 40 mg Documented by: Melatonin (Melatonin 10 Mg Tablet) 10 mg PO QHS [facility] Last Admin: 08/04/20 21:08 Dose: 10 mg Documented by: Nutritional Formula (Lactose Free) (Glucerna Shake 120 Ml Liquid) 120 ml PO TIDCM [facility] Last Admin: 08/05/20 12:57 Dose: 120 ml Documented by: Ondansetron HCl (Ondansetron 4 Mg/2 Ml Vial) 4 mg IV Q8H PRN PRN PRN Reason: NAUSEA/VOMITING Polyethylene Glycol (Polyethylene Glycol 3350 17 Gm Packet) 17 gm PO DAILY [facility] Last Admin: 08/05/20 09:34 Dose: 17 gm Documented by: Psyllium Hydrophilic Mucilloid (Psyllium 1 Packet) 1 packet PO BID [facility] Last Admin: 08/05/20 09:34 Dose: 1 packet Documented by: Quetiapine Fumarate (Quetiapine 100 Mg Tablet) 100 mg PO DAILY [facility] Last Admin: 08/05/20 09:35 Dose: 100 mg Documented by: Quetiapine Fumarate (Quetiapine 100 Mg Tablet) 300 mg PO QHS [facility] Last Admin: 08/04/20 21:08 Dose: 300 mg Documented by: Senna/Docusate Sodium (Senna/Docusate Sodium 1 Tablet) 2 tablet PO BID [facility] Last Admin: 08/05/20 09:34 Dose: 2 tablet Documented by: Sodium Chloride (0.9% Saline Lock 10 Ml Syringe) 10 - 40 ml IV UD PRN PRN Reason: SALINE FLUSH Last Admin: 12/26/20 22:01 Dose: 10 ml Documented by: Medical Necessity - Tobacco Use Smoking Status: Never smoker Assessment/Plan All Active Problems (This Medical Record has been edited. Action required.) Hyponatremia (Acute) Severe hyponatremia (Acute) Hyponatremia pending repeat SNa reorder Uosm Susan now that he is off diuretic U osmo dropping to 251 so SNa should correct on its own no need for ivf for now check probnp avoid overcorrection more than 8 in 24 hours no more hctz in the future depending on SNa will decide for fluid restriction after that d/w patient and dr. Corona
[2020-08-05 14:07] LABS: BNP,B-Type NATRIURETIC PEPTIDE 58.3 pg/mL (0-100)
[2020-08-05 14:22] LABS: Sodium Level 119 mmol/L (136-145)
--- NOTE | 2020-08-05 14:22 | PN_ITS ---
Patient Problems: Active and Suspected Problems (This Medical Record has been edited. Action required.) Hyponatremia (Acute) Severe hyponatremia (Acute) Reason for Visit: Follow-up for hyponatremia. Objective: Patient blood pressure is elevated. Heart rate 50-78 per note. On room air. Patient wants to go home. Physical exam General: Alert, Oriented x3, Cooperative HEENT: Atraumatic, PERRLA, EOMI, Normocephalic Oral: No Gingival or Mucosal Lesions/ Ulcerations Neck: Supple, No JVD, Negative Carotid Bruits Lungs: Air entry diminished in bilateral lung bases. No crepitation/rhonchi Cardiovascular: Regular rate, Regular Rhythm, Normal S1, Normal S2, No murmurs Abdomen: Bowel Sounds Present, Soft, Non Tender, Non-Distended : No renal angle tenderness. No suprapubic tenderness. Extremities: Bilateral leg edema, Capillary Refill Less than 3 Seconds Skin: No rashes, No breakdown Musculoskeletal: No Tenderness to Palpation of Joints or Extremities Neurological: Cranial nerves II-XII grossly intact, Deep Tendon Reflexes 2+/4 and Symmetrical, Neuro grossly intact Psych/Mental Status: Flat affect. Looks depressed Vitals/I&O's: Vital Signs Temp Pulse Resp BP Pulse Ox 98.2 F 78 18 170/75 H 97 08/05/20 09:29 08/05/20 09:29 08/05/20 09:29 08/05/20 09:29 08/05/20 09:29 Oxygen Delivery Method Room Air Weight: 229 lb 0.964 oz Body Mass Index (BMI) 36.9 Finger Stick Blood Glucose 106 Intake and Output for Last 24 Hours 08/03/20 08/04/20 08/05/20 23:59 23:59 23:59 Intake Total 1240 / 1240 1960 / 2160 400 / 400 Output Total 600 / 600 1925 / 1925 1625 / 1625 Balance 640 / 640 35 / 235 -1225 / -1225 Laboratory Results 08/04/20 16:06: POC Glucose 129 H 08/04/20 17:45: Sodium 116 L* 08/04/20 21:04: POC Glucose 155 H 08/04/20 21:37: Sodium 115 L* 08/04/20 23:44: Ur Random Sodium 65 08/04/20 23:44: Urine Osmolality 251 08/05/20 05:45: Valproic Acid < 3 L 08/05/20 05:45: WBC 3.4 L, RBC 3.88 L, Hgb 10.2 L, Hct 29.3 L, MCV 75.5 L, MCH 26.3 L, MCHC 34.8, RDW Std Deviation 41.2, RDW Coeff of Celine 15.6 H, Plt Count 210, MPV 9.7, Immature Gran % (Auto) 0.300, Neut % (Auto) 56.6, Lymph % (Auto) 26.4, [place] % (Auto) 15.5 H, Eos % (Auto) 0.9, Baso % (Auto) 0.3, Absolute Neuts (auto) 1.9 L, Absolute Lymphs (auto) 0.90, Nucleated RBC % 0 08/05/20 05:45: Sodium 117 L*, Potassium 3.8, Chloride 86 L, Carbon Dioxide 26.0, Anion Gap 5, BUN 7, Creatinine 0.74, Estim Creat Clear Calc 58.48, Est GFR (MDRD) Af Amer 132, Est GFR (MDRD) Non-Af 110, BUN/Creatinine Ratio 9.4 L, Glucose 75, Calcium 8.1 L, Total Bilirubin 0.40, Direct Bilirubin 0.16, AST 16, ALT 18, Alkaline Phosphatase 127 H, Total Protein 6.0 L, Albumin 3.0 L, Globulin 3.0 08/05/20 06:29: POC Glucose 93 08/05/20 11:53: POC Glucose 178 H 08/05/20 13:10: B-Natriuretic Peptide 58.3 08/05/20 13:46: Sodium Pending Current Medications Acetaminophen (Acetaminophen 325 Mg Tablet) 650 mg PO Q6H PRN PRN PRN Reason: Pain Score 1-10/Temp > 100.7 F Last Admin: 08/03/20 22:24 Dose: 650 mg Documented by: Amlodipine Besylate (Amlodipine 5 Mg Tablet) 5 mg PO DAILY [facility] Last Admin: 08/05/20 09:35 Dose: 5 mg Documented by: Atorvastatin Calcium (Atorvastatin Calcium 40 Mg Tablet) 40 mg PO QHS [facility] Last Admin: 08/04/20 21:08 Dose: 40 mg Documented by: Buspirone HCl (Buspirone 15 Mg Tablet) 15 mg PO BID [facility] Last Admin: 08/05/20 09:35 Dose: 15 mg Documented by: Cyclobenzaprine HCl (Cyclobenzaprine Hcl 5 Mg Tablet) 5 mg PO Q6H PRN PRN PRN Reason: SPASMS Enoxaparin Sodium (Enoxaparin 40 Mg/0.4 Ml Syringe) 40 mg SC DAILY [facility] Last Admin: 08/05/20 09:57 Dose: 40 mg Documented by: Sodium Chloride () 250 mls @ 15 mls/hr IV .[id number] PRN PRN Reason: Saline Flush Sodium Chloride () 250 mls @ 15 mls/hr IV .[id number] PRN PRN Reason: Additional IVPB Infusion Insulin Glargine (Insulin Glargine 100 Units/Ml Pen) 18 units SC QHS [facility] Last Admin: 08/04/20 21:09 Dose: 18 u Documented by: Insulin Human Lispro (Insulin Lispro 100 Unit/Ml Insuln.Pen) 0 unit SC ACHS [facility]; Protocol Last Admin: 08/05/20 11:54 Dose: 1 u Documented by: Levothyroxine Sodium (Levothyroxine 50 Mcg Tablet) 50 mcg PO DAILY@0600 [facility] Last Admin: 08/05/20 06:34 Dose: 50 mcg Documented by: Lisinopril (Lisinopril 40 Mg Tablet) 40 mg PO DAILY [facility] Last Admin: 08/05/20 09:34 Dose: 40 mg Documented by: Melatonin (Melatonin 10 Mg Tablet) 10 mg PO QHS [facility] Last Admin: 08/04/20 21:08 Dose: 10 mg Documented by: Nutritional Formula (Lactose Free) (Glucerna Shake 120 Ml Liquid) 120 ml PO TIDCM [facility] Last Admin: 08/05/20 12:57 Dose: 120 ml Documented by: Ondansetron HCl (Ondansetron 4 Mg/2 Ml Vial) 4 mg IV Q8H PRN PRN PRN Reason: NAUSEA/VOMITING Polyethylene Glycol (Polyethylene Glycol 3350 17 Gm Packet) 17 gm PO DAILY [facility] Last Admin: 08/05/20 09:34 Dose: 17 gm Documented by: Psyllium Hydrophilic Mucilloid (Psyllium 1 Packet) 1 packet PO BID [facility] Last Admin: 08/05/20 09:34 Dose: 1 packet Documented by: Quetiapine Fumarate (Quetiapine 100 Mg Tablet) 100 mg PO DAILY [facility] Last Admin: 08/05/20 09:35 Dose: 100 mg Documented by: Quetiapine Fumarate (Quetiapine 100 Mg Tablet) 300 mg PO QHS [facility] Last Admin: 08/04/20 21:08 Dose: 300 mg Documented by: Senna/Docusate Sodium (Senna/Docusate Sodium 1 Tablet) 2 tablet PO BID [facility] Last Admin: 08/05/20 09:34 Dose: 2 tablet Documented by: Sodium Chloride (0.9% Saline Lock 10 Ml Syringe) 10 - 40 ml IV UD PRN PRN Reason: SALINE FLUSH Last Admin: 08/03/20 22:01 Dose: 10 ml Documented by: Medical Necessity - Tobacco Use Smoking Status: Never smoker Assessment/Plan All Active Problems (This Medical Record has been edited. Action required.) Hyponatremia (Acute) Severe hyponatremia (Acute) This is a 74 years old male patient presented to the emergency room from the assisted living because of abnormal labs, sodium was 115 mmol/L and upon repeat BMP at the ED, sodium level was 113 and patient is being admitted for evaluation and treatment. #1 Hypotonic, isovolumetric severe hyponatremia, may be from medication side effect: Patient has nonspecific symptoms of generalized weakness, loss of balance for few weeks. Nonspecific symptoms of seizure, focal weakness or loss of consciousness. On IV fluid normal saline. Baseline sodium level has been in the range of 130-140, admission sodium was 113. Patient denied recent change or adjustment to his medications. This is probably due to medications side effects. Patient is on Depakote, Trileptal, HCTZ and Lasix. Trileptal and Depakote can cause SIADH. Magnesium 1.6. Urine osmolarity 353 more than serum osmolality 235. Urine sodium 32, potassium 40 chloride 101. 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 PT and OT evaluation. 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 Serum sodium is gradually getting corrected from 113?119 over last 2 days. Avoid overcorrection, more than 8 mEq in 24 hours. Urine osmolality has improved to 251 from 353. Urine sodium also improved to 65. IV fluid discontinued. Monitor serum sodium. Patient has bi lateral leg edema. Hyponatremia seems most probably secondary to NSAIDs and other antipsychotic medications including Depakote, risperidone, Seroquel and BuSpar #2 type 2 diabetes mellitus: Blood sugars 144. Hemoglobin A1c was 7.8% 2 months ago. Hold oral hypoglycemic agents Blood sugar was on the lower range 95. Scheduled insulin Lantus dose on hold. 07/30: Blood sugar fluctuates from 93-178. #3 hypertension: Blood pressure stable, continue Norvasc and lisinopril, hold Lasix and HCTZ. Blood pressure still elevated, systolic in 170. Started on hydralazine 50 mg twice daily. As needed IV hydralazine and labetalol. #4 hypothyroidism: TSH 1.36 normal. Continue levothyroxine. #5 depression/bipolar disorder: On multiple antipsychotic medications including Depakote, Seroquel, Risperdal, BuSpar. Risperdal held. #6 GERD: Continue PPI. #7 hyperlipidemia: Continue statins. #8 DVT prophylaxis: Subcu Lovenox. Clinical Impression(s) from Imaging Studies Chest X-Ray 08/03/20 22:00 IMPRESSION: Normal x-ray examination of the chest. Inpatient E&M: [id number] [facility] Hosp L2
[2020-08-05 14:57] LABS: Urine Sodium 41 mmol/L (Not Establ.)
[2020-08-05 15:27] LABS: Osmolality, Urine 162 mOsm/KG
[2020-08-05] MEDS: hydrALAZINE 50 MG Tablet PO ×2 (15:27→22:30)
[2020-08-05 19:06] LABS: Bedside Glucose 110 mg/dL (70-110)
[2020-08-05 22:02] LABS: Sodium Level 123 mmol/L (136-145)
[2020-08-05] MEDS: Atorvastatin Calcium 40 MG Tablet PO (22:30)
[2020-08-05] MEDS: MELATONIN 10 MG TABLET PO (22:30)
[2020-08-05] MEDS: QUEtiapine 100 MG Tablet 300 MG PO (22:31)
[2020-08-05] MEDS: Acetaminophen 325 MG Tablet 650 MG PO (22:31)
[2020-08-05 22:50] LABS: Bedside Glucose 146 mg/dL (70-110)
[2020-08-06] VITALS (12 sets, daily range): BP systolic 130–160; BP diastolic 61–69; PULSE 64–94; RESP 16–18; TEMP 36.4–37; O2SAT 95–99
[2020-08-06 05:08] LABS: Absolute Lymphocyte Count 1.12 X10^3/uL (0.83-4.51); Absolute Neutrophil Count 2.2 X10^3/uL (2.0-7.7); Basophil# 0.03 X10^3/uL; Basophil% 0.7 % (0-1); Eosinophil# 0.04 X10^3/uL; Hematocrit 30.9 % (40-54); Hemoglobin 10.2 g/dL (13.0-16.5); Lymphocyte # 1.12 X10^3/ul (4.0); Lymphocyte % 27.5 % (19-41); Mean Corpuscular Volume 75.7 fL (80-94); Mean Platelet Vol. 9.6 fl (6.2-12.0); Monocyte# 0.69 X10^3/uL; NRBC Flagged by Analyzer 0 % (0-5); Neutrophil # 2.17 X10^3/uL (2.7-7.7); Neutrophil % 53.3 % (47-70); Platelet Count 224 K/mm3 (150-450); RBC Distribution Width CV 15.6 % (11.6-14.6); RBC Distribution Width SD 42.8 fl (35.1-43.9); Red Blood Count 4.08 M/mm3 (4.6-6.2); White Blood Count 4.1 K/mm3 (4.4-11.0)
[2020-08-06 05:28] LABS: AST(SGOT) 13 U/L (15-37); Alanine Aminotransfer ALT/SGPT 20 U/L (16-61); Albumin, Serum 2.8 g/dL (3.2-5.0); Alkaline Phosphatase 116 U/L (45-117); Anion Gap 5 (5-15); BUN 10 mg/dL (7-18); BUN/Creat Ratio 10.8 RATIO (10-20); Bilirubin, Direct 0.14 mg/dL (0.00-0.30); Chloride 91 mmol/L (98-107); Creatinine, Serum 0.92 mg/dL (0.70-1.30); EST Glomerular Filtration Rate 85 mL/min (>60); Est Glom Filt Rate - Afr Amer 103 mL/min (>60); Estimated Creatinine Clearance 63.57 ml/min; Glucose 94 mg/dL (74-106); Potassium 3.8 mmol/L (3.5-5.1); Protein, Total 5.8 g/dL (6.4-8.2); Sodium Level 122 mmol/L (136-145)
[2020-08-06] MEDS: Levothyroxine 50 MCG Tablet PO (06:35)
[2020-08-06 06:41] LABS: Bedside Glucose 107 mg/dL (70-110)
[2020-08-06] MEDS: hydrALAZINE 50 MG Tablet PO ×2 (09:39→22:40)
[2020-08-06] MEDS: Psyllium 1 PACKET PO (09:41)
[2020-08-06] MEDS: amLODIPine 5 MG Tablet PO (09:41)
[2020-08-06] MEDS: Enoxaparin 40 MG/0.4 ML Syringe SC (09:41)
[2020-08-06] MEDS: busPIRone 15 MG TABLET PO ×2 (09:41→22:41)
[2020-08-06] MEDS: QUEtiapine 100 MG Tablet PO (09:42)
[2020-08-06] MEDS: Lisinopril 40 MG Tablet PO (09:43)
--- NOTE | 2020-08-06 11:00 | EKG12_ITS ---
Test Reason : CP Blood Pressure : / mmHG Vent. Rate : 089 BPM Atrial Rate : 089 BPM P-R Int : 204 ms QRS Dur : 094 ms QT Int : 354 ms P-R-T Axes : 063 005 082 degrees QTc Int : 430 ms Sinus rhythm with Premature atrial complexes Otherwise normal ECG No previous ECGs available Confirmed by ISAAC GODFREY, SHEYLA ([id number]), marketing editor CAITLIN CHAPPELL ([id number]) on 08/12/2020 9:59:21 AM Referred By: RADHA Confirmed By:KENYA GRAY MD
[2020-08-06] MEDS: Insulin Lispro 100 UNIT/ML INSULN.PEN SC (11:28)
--- NOTE | 2020-08-06 11:45 | PN.RENAL_ITS ---
Patient Problems: Active and Suspected Problems (This Medical Record has been edited. Action required.) Hyponatremia (Acute) Severe hyponatremia (Acute) Subjective: feels anxious and denies n/v/thomas/ - Physical Exam Vitals/I&O's: Vital Signs Temp Pulse Resp BP Pulse Ox 98.6 F 90 16 130/61 H 97 08/06/20 04:18 08/06/20 09:39 08/06/20 04:18 08/06/20 04:18 08/06/20 04:18 Oxygen Delivery Method Room Air Weight: 103.9 kg Body Mass Index (BMI) 36.9 Finger Stick Blood Glucose 106 Intake and Output for Last 24 Hours 08/04/20 08/05/20 08/06/20 23:59 23:59 23:59 Intake Total 1960 / 2160 1640 / 1640 120 / 120 Output Total 1925 / 1925 3225 / 3225 200 / 200 Balance 35 / 235 -1585 / -1585 -80 / -80 General: Alert, Cooperative HEENT: Atraumatic, Normocephalic Oral: Moist Mucosa Neck: Supple, Trachea Midline Lungs: Clear to auscultation, No rales Cardiovascular: Regular rate, Regular Rhythm Abdomen: Bowel Sounds Present, Soft, Obese Extremities: Edema Laboratory Results 08/05/20 11:53: POC Glucose 178 H 08/05/20 13:10: B-Natriuretic Peptide 58.3 08/05/20 13:46: Sodium 119 L* 08/05/20 14:23: Urine Osmolality 162 08/05/20 14:23: Ur Random Sodium 41 08/05/20 14:23: Urine Potassium 11.0 08/05/20 17:05: POC Glucose 110 08/05/20 21:30: Sodium 123 L 08/05/20 22:23: POC Glucose 146 H 08/06/20 04:56: WBC 4.1 L, RBC 4.08 L, Hgb 10.2 L, Hct 30.9 L, MCV 75.7 L, MCH 25.0 L, MCHC 33.0 D, RDW Std Deviation 42.8, RDW Coeff of Celine 15.6 H, Plt Count 224, MPV 9.6, Immature Gran % (Auto) 0.500, Neut % (Auto) 53.3, Lymph % (Auto) 27.5, [place] % (Auto) 17.0 H, Eos % (Auto) 1.0, Baso % (Auto) 0.7, Absolute Neuts (auto) 2.2, Absolute Lymphs (auto) 1.12, Nucleated RBC % 0 08/06/20 04:56: Sodium 122 L, Potassium 3.8, Chloride 91 L, Carbon Dioxide 26.0, Anion Gap 5, BUN 10, Creatinine 0.92, Estim Creat Clear Calc 63.57, Est GFR (MDRD) Af Amer 103, Est GFR (MDRD) Non-Af 85, BUN/Creatinine Ratio 10.8, Glucose 94, Calcium 8.0 L, Total Bilirubin 0.30, Direct Bilirubin 0.14, AST 13 L, ALT 20, Alkaline Phosphatase 116, Total Protein 5.8 L, Albumin 2.8 L, Globulin 3.0 08/06/20 06:33: POC Glucose 107 Current Medications Acetaminophen (Acetaminophen 325 Mg Tablet) 650 mg PO Q6H PRN PRN PRN Reason: Pain Score 1-10/Temp > 100.7 F Last Admin: 08/05/20 22:31 Dose: 650 mg Documented by: Amlodipine Besylate (Amlodipine 5 Mg Tablet) 5 mg PO DAILY [facility] Last Admin: 08/06/20 09:41 Dose: 5 mg Documented by: Atorvastatin Calcium (Atorvastatin Calcium 40 Mg Tablet) 40 mg PO QHS [facility] Last Admin: 08/05/20 22:30 Dose: 40 mg Documented by: Buspirone HCl (Buspirone 15 Mg Tablet) 15 mg PO BID [facility] Last Admin: 08/06/20 09:41 Dose: 15 mg Documented by: Calamine/Phenol (Menthol/Lanolin/Calamine/Znox 113 Gm Tube) 1 applic TOPICAL BID PRN PRN; Protocol PRN Reason: RASH/TOPICAL IRRITATION Cyclobenzaprine HCl (Cyclobenzaprine Hcl 5 Mg Tablet) 5 mg PO Q6H PRN PRN PRN Reason: SPASMS Enoxaparin Sodium (Enoxaparin 40 Mg/0.4 Ml Syringe) 40 mg SC DAILY [facility] Last Admin: 08/06/20 09:41 Dose: 40 mg Documented by: Hydralazine HCl (Hydralazine 20 Mg/Ml Vial) 10 mg IV Q4H PRN PRN PRN Reason: SBP more than 180 mmHg Hydralazine HCl (Hydralazine 50 Mg Tablet) 50 mg PO BID [facility] Last Admin: 08/06/20 09:39 Dose: 50 mg Documented by: Sodium Chloride () 250 mls @ 15 mls/hr IV .[id number] PRN PRN Reason: Saline Flush Sodium Chloride () 250 mls @ 15 mls/hr IV .[id number] PRN PRN Reason: Additional IVPB Infusion Insulin Glargine (Insulin Glargine 100 Units/Ml Pen) 18 units SC QHS [facility] Last Admin: 08/05/20 22:31 Dose: 18 u Documented by: Insulin Human Lispro (Insulin Lispro 100 Unit/Ml Insuln.Pen) 0 unit SC [facility]; Protocol Last Admin: 08/06/20 11:28 Dose: 1 u Documented by: Labetalol HCl (Labetalol (Prefilled) 20 Mg/4 Ml) 20 mg IV Q6H PRN PRN Reason: SBP>190 mmhg Levothyroxine Sodium (Levothyroxine 50 Mcg Tablet) 50 mcg PO DAILY@0600 [facility] Last Admin: 08/06/20 06:35 Dose: 50 mcg Documented by: Lisinopril (Lisinopril 40 Mg Tablet) 40 mg PO DAILY [facility] Last Admin: 08/06/20 09:43 Dose: 40 mg Documented by: Melatonin (Melatonin 10 Mg Tablet) 10 mg PO QHS [facility] Last Admin: 08/05/20 22:30 Dose: 10 mg Documented by: Nutritional Formula (Lactose Free) (Glucerna Shake 120 Ml Liquid) 120 ml PO TIDCM [facility] Last Admin: 08/06/20 11:29 Dose: Not Given Documented by: Ondansetron HCl (Ondansetron 4 Mg/2 Ml Vial) 4 mg IV Q8H PRN PRN PRN Reason: NAUSEA/VOMITING Polyethylene Glycol (Polyethylene Glycol 3350 17 Gm Packet) 17 gm PO DAILY [facility] Last Admin: 08/06/20 09:42 Dose: Not Given Documented by: Psyllium Hydrophilic Mucilloid (Psyllium 1 Packet) 1 packet PO BID [facility] Last Admin: 08/06/20 09:41 Dose: 1 packet Documented by: Quetiapine Fumarate (Quetiapine 100 Mg Tablet) 100 mg PO DAILY [facility] Last Admin: 08/06/20 09:42 Dose: 100 mg Documented by: Quetiapine Fumarate (Quetiapine 100 Mg Tablet) 300 mg PO QHS [facility] Last Admin: 08/05/20 22:31 Dose: 300 mg Documented by: Senna/Docusate Sodium (Senna/Docusate Sodium 1 Tablet) 2 tablet PO BID [facility] Last Admin: 08/06/20 09:42 Dose: Not Given Documented by: Sodium Chloride (0.9% Saline Lock 10 Ml Syringe) 10 - 40 ml IV UD PRN PRN Reason: SALINE FLUSH Last Admin: 08/03/20 22:01 Dose: 10 ml Documented by: Medical Necessity - Tobacco Use Smoking Status: Never smoker Assessment/Plan All Active Problems (This Medical Record has been edited. Action required.) Hyponatremia (Acute) Severe hyponatremia (Acute) Hyponatremia possible SIADH LE edema reorder Uosm Susan if still high Uosm will start formal fluid restriction with NaCl tabs and low dose lasix bid normal probnp avoid overcorrection more than 8 in 24 hours no more hctz in the future d/w patient
[2020-08-06 11:50] LABS: Bedside Glucose 175 mg/dL (70-110)
--- NOTE | 2020-08-06 12:10 | ECHOD_ITS ---
Reason For Study: EDEMA Procedure This was a 2D Doppler, Color Flow transthoracic echocardiogram. Exam performed portable in patient room. Left Ventricle Normal LV size. Left ventricular systolic function is normal. The estimated ejection fraction is 65 %. Stage 1 diastolic dysfunction. No regional wall motion abnormalities noted. Right Ventricle Normal RV size. Normal systolic function. Atria Normal left atrium. Normal right atrium. Mitral Valve Normal mitral valve. Tricuspid Valve Normal tricuspid valve. Mild (1+) tricuspid valve insufficiency. Pulmonary artery systolic pressure is 40 mmHg. Aortic Valve Trisinus/trileaflet aortic valve. Mild focal aortic valve calcification. Aortic sclerosis, no stenosis. Pulmonic Valve Normal pulmonic valve. Great Vessels Normal aortic root. The pulmonary artery is normal size. Normal inferior vena cava. Pericardium/Pleural No pericardial effusion. MMode/2D Measurements & Calculations LVIDd: 5.1 cm IVSd: 1.1 cm LVOT diam: 2.0 cm LVIDs: 2.6 cm LVPWd: 1.1 cm LVOT area: 3.1 cm2 RVDd: 3.6 cm FS: 50.0 % Ao root diam: 3.2 cm LAV(MOD-bp): 55.6 ml LVAd ap4: 34.2 cm2 LAV(MOD-bp) Indexed: 26.2 ml/m2 EDV(MOD-sp4): 122.1 ml LAV(MOD-sp2): 37.6 ml EDV(sp4-el): 129.7 ml LAV(MOD-sp4): 67.4 ml LVAs ap4: 19.5 cm2 ESV(MOD-sp4): 48.4 ml ESV(sp4-el): 51.1 ml EF(MOD-sp4): 60.4 % EF(sp4-el): 60.6 % SV(MOD-sp4): 73.7 ml SV(sp4-el): 78.6 ml LA A4 area: 21.8 cm2 LA dimension(2D): 4.2 cm RA A4 area: 13.7 cm2 Time Measurements MV dec time: 0.34 sec Doppler Measurements & Calculations MV E max hank: 83.1 cm/sec Lat Peak E' Hank: 7.3 cm/sec Med Peak E' Hank: 6.0 cm/sec MV A max hank: 143.5 cm/sec E/E' lat: 11.4 E/E' med: 13.9 MV E/A: 0.58 Ao V2 max: 237.6 cm/sec LV V1 max: 142.0 cm/sec SV(LVOT): 86.8 ml Ao max P.7 mmHg LV V1 max P.1 mmHg Ao V2 mean: 171.0 cm/sec LV V1 mean P.5 mmHg Ao mean P.0 mmHg LV V1 mean: 98.5 cm/sec Ao V2 VTI: 44.9 cm LV V1 VTI: 28.4 cm YEMI(I,D): 1.9 cm2 YEMI(V,D): 1.8 cm2 PA V2 max: 128.1 cm/sec TR max hank: 302.3 cm/sec TR max P.5 mmHg Interpretation Summary Normal LV size. Left ventricular systolic function is normal. The estimated ejection fraction is 65 %. Stage 1 diastolic dysfunction. Aortic sclerosis, no stenosis. Mild focal aortic valve calcification. Pulmonary artery systolic pressure is 40 mmHg. Ordering Physician: Simone Corona Referring Physician: AURA SKY Performed By: Mirian Hicks, LINDY, RVT
--- NOTE | 2020-08-06 12:46 | CASEMGMT ---
CLAUDIO spoke with Poonam from [facility] and they feel patient needs to go to the detention side when he returns. SW faxed them more updates. SW will talk with patient. Marva LEDESMA
[2020-08-06] MEDS: Menthol/Lanolin/Calamine/Znox 113 GM Tube 1 APPLIC TOPICAL ×2 (13:13→23:48)
--- NOTE | 2020-08-06 13:39 | CASEMGMT ---
SW spoke with patient. Introduced self and role at [facility]. SW let patient know that the staff in assisted living at [facility] feel he needs to go to the correction side when he returns. He voiced understanding. Plan: [facility] when ready. Marva THOMSON MSW
--- NOTE | 2020-08-06 14:32 | PCM.PN.HOSP ---
Patient Problems: Active and Suspected Problems (This Medical Record has been edited. Action required.) Hyponatremia (Acute) Severe hyponatremia (Acute) Reason for Visit: Follow-up for hyponatremia, bilateral leg edema and bipolar disorder Objective: Patient sodium is gradually improving. Patient still has mild bilateral lower extremity edema. No chest pain or shortness of breath. Patient denies any previous history of coronary artery disease, CHF or arrhythmia. spiral binder shows sinus rhythm with PACs and PVCs. Physical exam General: Alert, Oriented x3, Cooperative HEENT: Atraumatic, PERRLA, EOMI, Normocephalic Oral: No Gingival or Mucosal Lesions/ Ulcerations Neck: Supple, No JVD, Negative Carotid Bruits Lungs: Air entry diminished in bilateral lung bases. No crepitation/rhonchi Cardiovascular: Sinus arrhythmia with PACs, normal S1, Normal S2, No murmurs Abdomen: Bowel Sounds Present, Soft, Non Tender, Non-Distended : No renal angle tenderness. No suprapubic tenderness. Extremities: Mild bilateral lower extremity ankle edema, Capillary Refill Less than 3 Seconds Skin: No rashes, No breakdown Musculoskeletal: No Tenderness to Palpation of Joints or Extremities Neurological: Cranial nerves II-XII grossly intact, Deep Tendon Reflexes 2+/4 and Symmetrical, Neuro grossly intact Psych/Mental Status: Normal Affect, Appropriate. Vitals/I&O's: Vital Signs Temp Pulse Resp BP Pulse Ox 97.5 F L 82 18 130/69 H 95 08/06/20 13:20 08/06/20 13:20 08/06/20 13:20 08/06/20 13:20 08/06/20 13:20 Oxygen Delivery Method Room Air Weight: 229 lb 0.964 oz Body Mass Index (BMI) 36.9 Finger Stick Blood Glucose 106 Intake and Output for Last 24 Hours 08/04/20 08/05/20 08/06/20 23:59 23:59 23:59 Intake Total 1960 / 2160 1640 / 1640 420 / 420 Output Total 1925 / 1925 3225 / 3225 200 / 200 Balance 35 / 235 -1585 / -1585 220 / 220 Laboratory Results 08/05/20 14:23: Urine Osmolality 162 08/05/20 14:23: Ur Random Sodium 41 08/05/20 14:23: Urine Potassium 11.0 08/05/20 17:05: POC Glucose 110 08/05/20 21:30: Sodium 123 L 08/05/20 22:23: POC Glucose 146 H 08/06/20 04:56: WBC 4.1 L, RBC 4.08 L, Hgb 10.2 L, Hct 30.9 L, MCV 75.7 L, MCH 25.0 L, MCHC 33.0 D, RDW Std Deviation 42.8, RDW Coeff of Celine 15.6 H, Plt Count 224, MPV 9.6, Immature Gran % (Auto) 0.500, Neut % (Auto) 53.3, Lymph % (Auto) 27.5, [place] % (Auto) 17.0 H, Eos % (Auto) 1.0, Baso % (Auto) 0.7, Absolute Neuts (auto) 2.2, Absolute Lymphs (auto) 1.12, Nucleated RBC % 0 08/06/20 04:56: Sodium 122 L, Potassium 3.8, Chloride 91 L, Carbon Dioxide 26.0, Anion Gap 5, BUN 10, Creatinine 0.92, Estim Creat Clear Calc 63.57, Est GFR (MDRD) Af Amer 103, Est GFR (MDRD) Non-Af 85, BUN/Creatinine Ratio 10.8, Glucose 94, Calcium 8.0 L, Total Bilirubin 0.30, Direct Bilirubin 0.14, AST 13 L, ALT 20, Alkaline Phosphatase 116, Total Protein 5.8 L, Albumin 2.8 L, Globulin 3.0 08/06/20 06:33: POC Glucose 107 08/06/20 11:27: POC Glucose 175 H Current Medications Acetaminophen (Acetaminophen 325 Mg Tablet) 650 mg PO Q6H PRN PRN PRN Reason: Pain Score 1-10/Temp > 100.7 F Last Admin: 08/05/20 22:31 Dose: 650 mg Documented by: Amlodipine Besylate (Amlodipine 5 Mg Tablet) 5 mg PO DAILY [facility] Last Admin: 08/06/20 09:41 Dose: 5 mg Documented by: Atorvastatin Calcium (Atorvastatin Calcium 40 Mg Tablet) 40 mg PO QHS [facility] Last Admin: 08/05/20 22:30 Dose: 40 mg Documented by: Buspirone HCl (Buspirone 15 Mg Tablet) 15 mg PO BID [facility] Last Admin: 08/06/20 09:41 Dose: 15 mg Documented by: Calamine/Phenol (Menthol/Lanolin/Calamine/Znox 113 Gm Tube) 1 applic TOPICAL BID PRN PRN; Protocol PRN Reason: RASH/TOPICAL IRRITATION Last Admin: 08/06/20 13:13 Dose: 1 applicatio Documented by: Cyclobenzaprine HCl (Cyclobenzaprine Hcl 5 Mg Tablet) 5 mg PO Q6H PRN PRN PRN Reason: SPASMS Enoxaparin Sodium (Enoxaparin 40 Mg/0.4 Ml Syringe) 40 mg SC DAILY [facility] Last Admin: 08/06/20 09:41 Dose: 40 mg Documented by: Hydralazine HCl (Hydralazine 20 Mg/Ml Vial) 10 mg IV Q4H PRN PRN PRN Reason: SBP more than 180 mmHg Hydralazine HCl (Hydralazine 50 Mg Tablet) 50 mg PO BID [facility] Last Admin: 08/06/20 09:39 Dose: 50 mg Documented by: Sodium Chloride () 250 mls @ 15 mls/hr IV .[id number] PRN PRN Reason: Saline Flush Sodium Chloride () 250 mls @ 15 mls/hr IV .[id number] PRN PRN Reason: Additional IVPB Infusion Insulin Glargine (Insulin Glargine 100 Units/Ml Pen) 18 units SC QHS [facility] Last Admin: 08/05/20 22:31 Dose: 18 u Documented by: Insulin Human Lispro (Insulin Lispro 100 Unit/Ml Insuln.Pen) 0 unit SC [facility]; Protocol Last Admin: 08/06/20 11:28 Dose: 1 u Documented by: Labetalol HCl (Labetalol (Prefilled) 20 Mg/4 Ml) 20 mg IV Q6H PRN PRN Reason: SBP>190 mmhg Levothyroxine Sodium (Levothyroxine 50 Mcg Tablet) 50 mcg PO DAILY@0600 [facility] Last Admin: 08/06/20 06:35 Dose: 50 mcg Documented by: Lisinopril (Lisinopril 40 Mg Tablet) 40 mg PO DAILY [facility] Last Admin: 08/06/20 09:43 Dose: 40 mg Documented by: Melatonin (Melatonin 10 Mg Tablet) 10 mg PO QHS [facility] Last Admin: 08/05/20 22:30 Dose: 10 mg Documented by: Nutritional Formula (Lactose Free) (Glucerna Shake 120 Ml Liquid) 120 ml PO TIDCM [facility] Last Admin: 08/06/20 11:29 Dose: Not Given Documented by: Ondansetron HCl (Ondansetron 4 Mg/2 Ml Vial) 4 mg IV Q8H PRN PRN PRN Reason: NAUSEA/VOMITING Polyethylene Glycol (Polyethylene Glycol 3350 17 Gm Packet) 17 gm PO DAILY [facility] Last Admin: 08/06/20 09:42 Dose: Not Given Documented by: Psyllium Hydrophilic Mucilloid (Psyllium 1 Packet) 1 packet PO BID [facility] Last Admin: 08/06/20 09:41 Dose: 1 packet Documented by: Quetiapine Fumarate (Quetiapine 100 Mg Tablet) 100 mg PO DAILY [facility] Last Admin: 08/06/20 09:42 Dose: 100 mg Documented by: Quetiapine Fumarate (Quetiapine 100 Mg Tablet) 300 mg PO QHS [facility] Last Admin: 08/05/20 22:31 Dose: 300 mg Documented by: Senna/Docusate Sodium (Senna/Docusate Sodium 1 Tablet) 2 tablet PO BID [facility] Last Admin: 08/06/20 09:42 Dose: Not Given Documented by: Sodium Chloride (0.9% Saline Lock 10 Ml Syringe) 10 - 40 ml IV UD PRN PRN Reason: SALINE FLUSH Last Admin: 08/03/20 22:01 Dose: 10 ml Documented by: STROKE Vital Signs/Narrative: Vital Signs Temp Pulse Resp BP Pulse Ox 08/06/20 13:20 97.5 F L 82 18 130/69 H 95 08/06/20 13:14 84 Medical Necessity - Tobacco Use Smoking Status: Never smoker Assessment/Plan All Active Problems (This Medical Record has been edited. Action required.) Hyponatremia (Acute) Severe hyponatremia (Acute) This is a 74 years old male patient presented to the emergency room from the assisted living because of abnormal labs, sodium was 115 mmol/L and upon repeat BMP at the ED, sodium level was 113 and patient is being admitted for evaluation and treatment. #1 Hypotonic, isovolumetric severe hyponatremia, may be from medication side effect: Patient has nonspecific symptoms of generalized weakness, loss of balance for few weeks. Nonspecific symptoms of seizure, focal weakness or loss of consciousness. On IV fluid normal saline. Baseline sodium level has been in the range of 130-140, admission sodium was 113. Patient denied recent change or adjustment to his medications. This is probably due to medications side effects. Patient is on Depakote, Trileptal, HCTZ and Lasix. Trileptal and Depakote can cause SIADH. Magnesium 1.6. Urine osmolarity 353 more than serum osmolality 235. Urine sodium 32, potassium 40 chloride 101. 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 PT and OT evaluation. 08/05: Discussed with the security operations manager. Serum sodium is gradually getting corrected from 113?119 over last 2 days. Avoid overcorrection, more than 8 mEq in 24 hours. Urine osmolality has improved to 251 from 353. Urine sodium also improved to 65. IV fluid discontinued. Monitor serum sodium. Patient has bilateral leg edema. Hyponatremia seems most probably secondary to NSAIDs and other antipsychotic medications including Depakote, risperidone, Seroquel and BuSpar 08/06: Gradual improvement in sodium, 122. K3.8. Urine osmolality decreased to 162, urine sodium 41. Discussed with security operations manager. Sinus arrhythmia with PACs: spiral binder shows sinus rhythm with PACs. Twelve-lead EKG was done. Sinus rhythm with PAC, QTC 430 ms. 2D echo is ordered and patient also has leg edema. Denies previous history of A. fib or coronary artery disease. Patient was on Actos and amlodipine. #2 type 2 diabetes mellitus: Blood sugars 144. Hemoglobin A1c was 7.8% 2 months ago. Hold oral hypoglycemic agents Blood sugar was on the lower range 95. Scheduled insulin Lantus dose on hold. 08/05: Blood sugar fluctuates from 93-178. 08/06: Glucose 1 46-175. #3 hypertension: Blood pressure stable, continue Norvasc and lisinopril, hold Lasix and HCTZ. Blood pressure still elevated, systolic in 170. Started on hydralazine 50 mg twice daily. As needed IV hydralazine and labetalol. #4 hypothyroidism: TSH 1.36 normal. Continue levothyroxine. #5 depression/bipolar disorder: On multiple antipsychotic medications including Seroquel, Risperdal, BuSpar. Risperdal held. #6 GERD: Continue PPI. #7 hyperlipidemia: Continue statins. #8 DVT prophylaxis: Subcu Lovenox. Clinical Impression(s) from Imaging Studies Chest X-Ray 08/03/20 22:00 IMPRESSION: Normal x-ray examination of the chest. Inpatient E&M: 22066 Subs Hosp L2
--- NOTE | 2020-08-06 15:27 | CASEMGMT ---
Negative COVID test faxed to [facility]. Marva THOMSON MSW
[2020-08-06 17:25] LABS: Bedside Glucose 119 mg/dL (70-110)
[2020-08-06 17:46] LABS: Urine Sodium 31 mmol/L (Not Establ.)
[2020-08-06 18:30] LABS: Osmolality, Urine 199 mOsm/KG
[2020-08-06] MEDS: Atorvastatin Calcium 40 MG Tablet PO (22:40)
[2020-08-06] MEDS: QUEtiapine 100 MG Tablet 300 MG PO (22:40)
[2020-08-06] MEDS: RisperiDONE 1 MG Tablet 3 MG PO (22:50)
[2020-08-06] MEDS: MELATONIN 10 MG TABLET PO (22:50)
[2020-08-06 22:51] LABS: Bedside Glucose 123 mg/dL (70-110)
--- NOTE | 2020-08-06 23:50 | NURSING ---
urinary retention 582cc from bladder scan orders for [place] placed at this time 650cc output
[2020-08-07] VITALS (12 sets, daily range): BP systolic 111–150; BP diastolic 53–61; PULSE 65–100; RESP 16–20; TEMP 36.4–37.4; O2SAT 96–97
[2020-08-07 00:23] LABS: Bacteria 0 SEEN /hpf (None Seen); Mucous, Urine 0 SEEN /hpf (<or=2+); Red Blood Cells-Urine 0 SEEN /hpf (0-5); Squamous Epithelial Cells - UA 0 SEEN /hpf (0-5); White Blood Cells 0 SEEN /hpf (0-5)
[2020-08-07 00:24] LABS: Color, Urine Yellow (Yellow); Glucose, Dipstick Normal (Normal); Ketone-Dipstick Negative (Negative); Leukocyte Esterase-Dipstick Negative /ul (Negative); Nitrite-Dipstick Negative (Negative); Occult Blood-Urine Negative /ul (Negative); Protein-Dipstick Negative (Negative); Specific Gravity, Urine 1.015 (1.002-1.030); Urine Bilirubin Dipstick Negative (Negative); Urine Clarity Clear (Clear); Urine Urobilinogen Normal (Normal); Urine pH 6.5 (5.0 - 8.0)
[2020-08-07 00:31] LABS: Amorphous Sediment RARE
[2020-08-07] MEDS: Acetaminophen 325 MG Tablet 650 MG PO (03:11)
[2020-08-07] MEDS: 0.9% Saline Lock 10 ML Syringe IV ×2 (05:01→17:30)
[2020-08-07] MEDS: Levothyroxine 50 MCG Tablet PO (05:32)
--- NOTE | 2020-08-07 06:45 | NURSING ---
Addendum entered by Juvenal Aranda 08/07/20 06:54: Dr. Thomas updated at this time of below. Response: I will tell the day physician Original Note: pt received 250cc NS bolus finishing at 0515. only 25cc more of output. equaling 50cc since 0000.
[2020-08-07 07:09] LABS: AST(SGOT) 15 U/L (15-37); Alanine Aminotransfer ALT/SGPT 20 U/L (16-61); Albumin, Serum 2.6 g/dL (3.2-5.0); Alkaline Phosphatase 98 U/L (45-117); Bilirubin, Direct 0.14 mg/dL (0.00-0.30); Globulin 2.8 g/dL (2.2-4.2); Protein, Total 5.4 g/dL (6.4-8.2)
[2020-08-07 08:02] LABS: Anion Gap 8 (5-15); BUN 19 mg/dL (7-18); BUN/Creat Ratio 15.8 RATIO (10-20); Calcium,Total 7.9 mg/dL (8.5-10.1); Chloride 93 mmol/L (98-107); EST Glomerular Filtration Rate 63 mL/min (>60); Est Glom Filt Rate - Afr Amer 76 mL/min (>60); Estimated Creatinine Clearance 48.74 ml/min; Glucose 117 mg/dL (74-106); Potassium 3.9 mmol/L (3.5-5.1); Sodium Level 125 mmol/L (136-145)
[2020-08-07] MEDS: RisperiDONE 1 MG Tablet 3 MG PO ×2 (08:17→21:29)
[2020-08-07] MEDS: busPIRone 15 MG TABLET PO ×2 (08:17→21:27)
[2020-08-07] MEDS: amLODIPine 5 MG Tablet PO (08:17)
[2020-08-07] MEDS: hydrALAZINE 50 MG Tablet PO ×2 (08:18→21:27)
[2020-08-07] MEDS: Lisinopril 40 MG Tablet PO (08:18)
[2020-08-07] MEDS: Enoxaparin 40 MG/0.4 ML Syringe SC (08:19)
[2020-08-07] MEDS: QUEtiapine 100 MG Tablet PO (08:19)
[2020-08-07 09:28] LABS: Trileptal-Oxcarbazepine 24 ug/mL (10-35)
--- NOTE | 2020-08-07 10:41 | PCM.PN.REN ---
Patient Problems: Active and Suspected Problems (This Medical Record has been edited. Action required.) Hyponatremia (Acute) Severe hyponatremia (Acute) Subjective: no sob/cp no c/o - Physical Exam Vitals/I&O's: Vital Signs Temp Pulse Resp BP Pulse Ox 97.6 F L 65 16 142/61 H 96 08/07/20 08:54 08/07/20 08:54 08/07/20 08:54 08/07/20 08:54 08/07/20 08:54 Oxygen Delivery Method Room Air Weight: 103.9 kg Body Mass Index (BMI) 36.9 Finger Stick Blood Glucose 106 Intake and Output for Last 24 Hours 08/05/20 08/06/20 08/07/20 23:59 23:59 23:59 Intake Total 1640 / 1640 810 / 810 500 / 500 Output Total 3225 / 3225 2550 / 2550 50 / 50 Balance -1585 / -1585 -1740 / -1740 450 / 450 General: Alert, Cooperative HEENT: Atraumatic, Normocephalic Neck: Supple, No Nuchal Rigidity Lungs: Clear to auscultation, Normal air movement Cardiovascular: Regular rate, Regular Rhythm, Normal S1, Normal S2 Abdomen: Bowel Sounds Present, Soft Microbiology Past 72 Hours 08/06/20 14:30 Mucosa - Nasopharyngeal SARS-CoV-2 Antigen (Rapid) - Final Laboratory Results 08/03/20 19:40: Oxcarbazepine 24 08/06/20 11:27: POC Glucose 175 H 08/06/20 16:18: POC Glucose 119 H 08/06/20 17:00: Urine Osmolality 199, Ur Random Sodium 31 08/06/20 22:35: POC Glucose 123 H 08/06/20 23:45: Urine Color Yellow, Urine Clarity Clear, Urine pH 6.5, Ur Specific [place] 1.015, Urine Protein Negative, Urine Glucose (UA) Normal, Urine Ketones Negative, Urine Occult Blood Negative, Urine Nitrite Negative, Urine Bilirubin Negative, Urine Urobilinogen Normal, Ur Leukocyte Esterase Negative, Urine RBC 0 SEEN, Urine WBC 0 SEEN, Ur Squamous Epith Cells 0 SEEN, Amorphous Sediment RARE, Urine Bacteria 0 SEEN, Urine Mucus 0 SEEN 08/07/20 05:50: Total Bilirubin 0.40, Direct Bilirubin 0.14, AST 15, ALT 20, Alkaline Phosphatase 98, Total Protein 5.4 L, Albumin 2.6 L, Globulin 2.8 08/07/20 05:50: Sodium 125 L, Potassium 3.9, Chloride 93 L, Carbon Dioxide 24.0, Anion Gap 8, BUN 19 H, Creatinine 1.20, Estim Creat Clear Calc 48.74, Est GFR (MDRD) Af Amer 76, Est GFR (MDRD) Non-Af 63, BUN/Creatinine Ratio 15.8, Glucose 117 H, Calcium 7.9 L Current Medications Acetaminophen (Acetaminophen 325 Mg Tablet) 650 mg PO Q6H PRN PRN PRN Reason: Pain Score 1-10/Temp > 100.7 F Last Admin: 08/07/20 03:11 Dose: 650 mg Documented by: Amlodipine Besylate (Amlodipine 5 Mg Tablet) 5 mg PO DAILY [facility] Last Admin: 08/07/20 08:17 Dose: 5 mg Documented by: Atorvastatin Calcium (Atorvastatin Calcium 40 Mg Tablet) 40 mg PO QHS [facility] Last Admin: 08/06/20 22:40 Dose: 40 mg Documented by: Buspirone HCl (Buspirone 15 Mg Tablet) 15 mg PO BID [facility] Last Admin: 08/07/20 08:17 Dose: 15 mg Documented by: Calamine/Phenol (Menthol/Lanolin/Calamine/Znox 113 Gm Tube) 1 applic TOPICAL BID PRN PRN; Protocol PRN Reason: RASH/TOPICAL IRRITATION Last Admin: 08/06/20 23:48 Dose: 1 applicatio Documented by: Cyclobenzaprine HCl (Cyclobenzaprine Hcl 5 Mg Tablet) 5 mg PO Q6H PRN PRN PRN Reason: SPASMS Enoxaparin Sodium (Enoxaparin 40 Mg/0.4 Ml Syringe) 40 mg SC DAILY [facility] Last Admin: 08/07/20 08:19 Dose: 40 mg Documented by: Hydralazine HCl (Hydralazine 20 Mg/Ml Vial) 10 mg IV Q4H PRN PRN PRN Reason: SBP more than 180 mmHg Hydralazine HCl (Hydralazine 50 Mg Tablet) 50 mg PO BID [facility] Last Admin: 08/07/20 08:18 Dose: 50 mg Documented by: Sodium Chloride () 250 mls @ 15 mls/hr IV .[id number] PRN PRN Reason: Saline Flush Sodium Chloride () 250 mls @ 15 mls/hr IV .[id number] PRN PRN Reason: Additional IVPB Infusion Insulin Glargine (Insulin Glargine 100 Units/Ml Pen) 18 units SC QHS [facility] Last Admin: 08/06/20 22:36 Dose: Not Given Documented by: Insulin Glargine (Insulin Glargine 100 Units/Ml Pen) 10 units SC BREAKFAST [facility] Last Admin: 08/07/20 08:28 Dose: 10 u Documented by: Insulin Human Lispro (Insulin Lispro 100 Unit/Ml Insuln.Pen) 0 unit SC ACHS [facility]; Protocol Last Admin: 08/07/20 08:06 Dose: Not Given Documented by: Labetalol HCl (Labetalol (Prefilled) 20 Mg/4 Ml) 20 mg IV Q6H PRN PRN Reason: SBP>190 mmhg Levothyroxine Sodium (Levothyroxine 50 Mcg Tablet) 50 mcg PO DAILY@0600 [facility] Last Admin: 08/07/20 05:32 Dose: 50 mcg Documented by: Lisinopril (Lisinopril 40 Mg Tablet) 40 mg PO DAILY [facility] Last Admin: 08/07/20 08:18 Dose: 40 mg Documented by: Melatonin (Melatonin 10 Mg Tablet) 10 mg PO QHS [facility] Last Admin: 08/06/20 22:50 Dose: 10 mg Documented by: Nutritional Formula (Lactose Free) (Glucerna Shake 120 Ml Liquid) 120 ml PO TIDCM [facility] Last Admin: 08/07/20 08:01 Dose: Not Given Documented by: Ondansetron HCl (Ondansetron 4 Mg/2 Ml Vial) 4 mg IV Q8H PRN PRN PRN Reason: NAUSEA/VOMITING Polyethylene Glycol (Polyethylene Glycol 3350 17 Gm Packet) 17 gm PO DAILY [facility] Last Admin: 08/07/20 08:34 Dose: Not Given Documented by: Psyllium Hydrophilic Mucilloid (Psyllium 1 Packet) 1 packet PO BID [facility] Last Admin: 08/07/20 08:34 Dose: Not Given Documented by: Quetiapine Fumarate (Quetiapine 100 Mg Tablet) 100 mg PO DAILY [facility] Last Admin: 08/07/20 08:19 Dose: 100 mg Documented by: Quetiapine Fumarate (Quetiapine 100 Mg Tablet) 300 mg PO QHS [facility] Last Admin: 12/29/20 22:40 Dose: 300 mg Documented by: Risperidone (Risperidone 1 Mg Tablet) 3 mg PO BID [facility] Last Admin: 08/07/20 08:17 Dose: 3 mg Documented by: Senna/Docusate Sodium (Senna/Docusate Sodium 1 Tablet) 2 tablet PO BID [facility] Last Admin: 08/07/20 08:34 Dose: Not Given Documented by: Sodium Chloride (0.9% Saline Lock 10 Ml Syringe) 10 - 40 ml IV UD PRN PRN Reason: SALINE FLUSH Last Admin: 08/07/20 05:01 Dose: 10 ml Documented by: Medical Necessity - Tobacco Use Smoking Status: Never smoker Assessment/Plan All Active Problems (This Medical Record has been edited. Action required.) Hyponatremia (Acute) Severe hyponatremia (Acute) Hyponatremia possible SIADH LE edema continue formal fluid restriction with NaCl tabs and low dose lasix bid SNa 125 better avoid overcorrection more than 8 in 24 hours no more hctz in the future d/w patient
--- NOTE | 2020-08-07 10:48 | US_ITS ---
STUDY: RENAL ULTRASOUND - COMPLETE REASON FOR EXAM: Male, 74 years old. URINARY RENTENTION TECHNIQUE: Ultrasound evaluation of the kidneys was performed with real-time and static mauro-scale imaging. COMPARISON: None. FINDINGS: RIGHT KIDNEY: Normal location of the right kidney, which is normal in size. The right kidney measures 12.1 cm. There is a normal cortex of the right kidney. The renal cortex measures 1.3 cm. There is no right renal mass or cyst. There are no right renal calculi. There is no right hydronephrosis. DISTAL RIGHT URETER: There is non-visualization of the distal right ureter. There is no demonstrated right ureterovesical junction calculus. There is a visualized right ureteral jet. LEFT KIDNEY: Normal location of the left kidney, which is normal in size. The left kidney measures 10.8 cm. There is diffuse thinning of the renal cortex. The renal cortex measures 0.9 cm. There is no left renal mass or cyst. There are no left renal calculi. There is no left hydronephrosis. DISTAL LEFT URETER: There is non-visualization of the distal left ureter. There is no demonstrated left ureterovesical junction calculus. There is a visualized left ureteral jet. BLADDER: Not visualized due to Saleem catheter.. US/Kidney and Bladder IMPRESSION: 1. No hydronephrosis to suggest obstruction. 2. Mild atrophy and cortical thinning of the left kidney possibly from chronic renal artery stenosis. Correlation with MRA or CTA may be useful. Electronically Signed: Jonathan Howe MD at 12:25 EST Tel , Service support ,
[2020-08-07 11:05] LABS: Bedside Glucose 187 mg/dL (70-110)
[2020-08-07] MEDS: Insulin Lispro 100 UNIT/ML INSULN.PEN SC (11:44)
[2020-08-07] MEDS: Menthol/Lanolin/Calamine/Znox 113 GM Tube 1 APPLIC TOPICAL (11:45)
--- NOTE | 2020-08-07 13:19 | CASEMGMT ---
Addendum entered by Amada Shelley 08/07/20 15:31: SW spoke w/Poonam again from [facility]. They can take pt whenever he is ready and will work it out with his insurance, even though they are not in network. Also, if pt is ready for d/c on 08/08/20 they are find w/the COVID test from 08/06/20. If pt is discharged after this however, a new COVID test needs completed within 24 hours of discharge. SETH Celeste Addendum entered by Amada Shelley 08/07/20 13:27: SW spoke again w/Poonam at the [facility] in regard to insurance. They are not in network with pt's insurance so they are trying to get this worked out w/insurance at present. Pt should not be sent to [facility] until they let us know the insurance is okay for pt to be there skilled. SETH Celeste Original Note: Pt is not ready to go to [facility] today. SW called [facility], spoke lissett/Poonam, let her know pt is not ready today. Pt will need a COVID test completed within 24 hours of discharge, so the one from yesterday will be out of date by tomorrow and a new test will need ordered. SETH Celeste
--- NOTE | 2020-08-07 14:35 | PCM.PN.HOSP ---
Patient Problems: Active and Suspected Problems (This Medical Record has been edited. Action required.) Hyponatremia (Acute) Severe hyponatremia (Acute) Reason for Visit: Follow-up for hyponatremia, urine retention. Saleem catheter. Objective: Patient had a urine retention, on bladder scan 1400 mL yesterday evening. Patient had a straight cath. Patient had Saleem catheter around midnight and had oliguria 2500 cc until 5 AM and 250 mL bolus nightly. Large bowel movement on 08/05. On fluid restriction. Urine is dark yellow in color. Urine output 250 mils since morning today. Physical exam General: Alert, Oriented x3, Cooperative HEENT: Atraumatic, PERRLA, EOMI, Normocephalic Oral: No Gingival or Mucosal Lesions/ Ulcerations Neck: Supple, No JVD, Negative Carotid Bruits Lungs: Air entry diminished in bilateral lung bases. No crepitation/rhonchi Cardiovascular: Regular rate, Regular Rhythm, Normal S1, Normal S2, No murmurs Abdomen: Bowel Sounds Present, Soft, Non Tender, Non-Distended : No renal angle tenderness. No suprapubic tenderness. Saleem catheter. Extremities: Minimal ankle edema, Capillary Refill Less than 3 Seconds Skin: No rashes, No breakdown Musculoskeletal: No Tenderness to Palpation of Joints or Extremities Neurological: Cranial nerves II-XII grossly intact, Deep Tendon Reflexes 2+/4 and Symmetrical, Neuro grossly intact Psych/Mental Status: Normal Affect, Appropriate. Vitals/I&O's: Vital Signs Temp Pulse Resp BP Pulse Ox 97.6 F L 95 16 142/61 H 96 08/07/20 08:54 08/07/20 12:00 08/07/20 08:54 08/07/20 08:54 08/07/20 08:54 Oxygen Delivery Method Room Air Weight: 229 lb 0.964 oz Body Mass Index (BMI) 36.9 Finger Stick Blood Glucose 106 Intake and Output for Last 24 Hours 08/05/20 08/06/20 08/07/20 23:59 23:59 23:59 Intake Total 1640 / 1640 810 / 810 940 / 940 Output Total 3225 / 3225 2550 / 2550 150 / 150 Balance -1585 / -1585 -1740 / -1740 790 / 790 Microbiology Past 72 Hours 08/06/20 14:30 Mucosa - Nasopharyngeal SARS-CoV-2 Antigen (Rapid) - Final Laboratory Results 08/03/20 19:40: Oxcarbazepine 24 08/06/20 16:18: POC Glucose 119 H 08/06/20 17:00: Urine Osmolality 199, Ur Random Sodium 31 08/06/20 22:35: POC Glucose 123 H 08/06/20 23:45: Urine Color Yellow, Urine Clarity Clear, Urine pH 6.5, Ur Specific [place] 1.015, Urine Protein Negative, Urine Glucose (UA) Normal, Urine Ketones Negative, Urine Occult Blood Negative, Urine Nitrite Negative, Urine Bilirubin Negative, Urine Urobilinogen Normal, Ur Leukocyte Esterase Negative, Urine RBC 0 SEEN, Urine WBC 0 SEEN, Ur Squamous Epith Cells 0 SEEN, Amorphous Sediment RARE, Urine Bacteria 0 SEEN, Urine Mucus 0 SEEN 08/07/20 05:50: Total Bilirubin 0.40, Direct Bilirubin 0.14, AST 15, ALT 20, Alkaline Phosphatase 98, Total Protein 5.4 L, Albumin 2.6 L, Globulin 2.8 08/07/20 05:50: Sodium 125 L, Potassium 3.9, Chloride 93 L, Carbon Dioxide 24.0, Anion Gap 8, BUN 19 H, Creatinine 1.20, Estim Creat Clear Calc 48.74, Est GFR (MDRD) Af Amer 76, Est GFR (MDRD) Non-Af 63, BUN/Creatinine Ratio 15.8, Glucose 117 H, Calcium 7.9 L 08/07/20 10:58: POC Glucose 187 H Current Medications Acetaminophen (Acetaminophen 325 Mg Tablet) 650 mg PO Q6H PRN PRN PRN Reason: Pain Score 1-10/Temp > 100.7 F Last Admin: 08/07/20 03:11 Dose: 650 mg Documented by: Amlodipine Besylate (Amlodipine 5 Mg Tablet) 5 mg PO DAILY [facility] Last Admin: 08/07/20 08:17 Dose: 5 mg Documented by: Atorvastatin Calcium (Atorvastatin Calcium 40 Mg Tablet) 40 mg PO QHS [facility] Last Admin: 08/06/20 22:40 Dose: 40 mg Documented by: Buspirone HCl (Buspirone 15 Mg Tablet) 15 mg PO BID [facility] Last Admin: 08/07/20 08:17 Dose: 15 mg Documented by: Calamine/Phenol (Menthol/Lanolin/Calamine/Znox 113 Gm Tube) 1 applic TOPICAL BID PRN PRN; Protocol PRN Reason: RASH/TOPICAL IRRITATION Last Admin: 08/07/20 11:45 Dose: 1 applicatio Documented by: Cyclobenzaprine HCl (Cyclobenzaprine Hcl 5 Mg Tablet) 5 mg PO Q6H PRN PRN PRN Reason: SPASMS Enoxaparin Sodium (Enoxaparin 40 Mg/0.4 Ml Syringe) 40 mg SC DAILY [facility] Last Admin: 08/07/20 08:19 Dose: 40 mg Documented by: Furosemide (Furosemide 20 Mg Tablet) 20 mg PO BID@1000,1800 [facility] Hydralazine HCl (Hydralazine 20 Mg/Ml Vial) 10 mg IV Q4H PRN PRN PRN Reason: SBP more than 180 mmHg Hydralazine HCl (Hydralazine 50 Mg Tablet) 50 mg PO BID [facility] Last Admin: 08/07/20 08:18 Dose: 50 mg Documented by: Sodium Chloride () 250 mls @ 15 mls/hr IV .[id number] PRN PRN Reason: Saline Flush Sodium Chloride () 250 mls @ 15 mls/hr IV .[id number] PRN PRN Reason: Additional IVPB Infusion Insulin Glargine (Insulin Glargine 100 Units/Ml Pen) 18 units SC QHS [facility] Last Admin: 08/06/20 22:36 Dose: Not Given Documented by: Insulin Glargine (Insulin Glargine 100 Units/Ml Pen) 10 units SC BREAKFAST [facility] Last Admin: 08/07/20 08:28 Dose: 10 u Documented by: Insulin Human Lispro (Insulin Lispro 100 Unit/Ml Insuln.Pen) 0 unit SC [facility]; Protocol Last Admin: 08/07/20 11:44 Dose: 2 u Documented by: Labetalol HCl (Labetalol (Prefilled) 20 Mg/4 Ml) 20 mg IV Q6H PRN PRN Reason: SBP>190 mmhg Levothyroxine Sodium (Levothyroxine 50 Mcg Tablet) 50 mcg PO DAILY@0600 [facility] Last Admin: 08/07/20 05:32 Dose: 50 mcg Documented by: Lisinopril (Lisinopril 40 Mg Tablet) 40 mg PO DAILY [facility] Last Admin: 08/07/20 08:18 Dose: 40 mg Documented by: Melatonin (Melatonin 10 Mg Tablet) 10 mg PO QHS [facility] Last Admin: 08/06/20 22:50 Dose: 10 mg Documented by: Ondansetron HCl (Ondansetron 4 Mg/2 Ml Vial) 4 mg IV Q8H PRN PRN PRN Reason: NAUSEA/VOMITING Polyethylene Glycol (Polyethylene Glycol 3350 17 Gm Packet) 17 gm PO DAILY [facility] Last Admin: 08/07/20 08:34 Dose: Not Given Documented by: Psyllium Hydrophilic Mucilloid (Psyllium 1 Packet) 1 packet PO BID [facility] Last Admin: 08/07/20 08:34 Dose: Not Given Documented by: Quetiapine Fumarate (Quetiapine 100 Mg Tablet) 100 mg PO DAILY [facility] Last Admin: 08/07/20 08:19 Dose: 100 mg Documented by: Quetiapine Fumarate (Quetiapine 100 Mg Tablet) 300 mg PO QHS [facility] Last Admin: 08/06/20 22:40 Dose: 300 mg Documented by: Risperidone (Risperidone 1 Mg Tablet) 3 mg PO BID [facility] Last Admin: 08/07/20 08:17 Dose: 3 mg Documented by: Senna/Docusate Sodium (Senna/Docusate Sodium 1 Tablet) 2 tablet PO BID [facility] Last Admin: 08/07/20 08:34 Dose: Not Given Documented by: Sodium Chloride (0.9% Saline Lock 10 Ml Syringe) 10 - 40 ml IV UD PRN PRN Reason: SALINE FLUSH Last Admin: 08/07/20 05:01 Dose: 10 ml Documented by: Sodium Chloride (Sodium Chloride 1 Gm Tablet) 1 gm PO BID [facility] STROKE Vital Signs/Narrative: Vital Signs Pulse 08/07/20 12:00 95 Medical Necessity - Tobacco Use Smoking Status: Never smoker Assessment/Plan All Active Problems (This Medical Record has been edited. Action required.) Hyponatremia (Acute) Severe hyponatremia (Acute) This is a 74 years old male patient presented to the emergency room from the assisted living because of abnormal labs, sodium was 115 mmol/L and upon repeat BMP at the ED, sodium level was 113 and patient is being admitted for evaluation and treatment. #1 Hypotonic, isovolumetric severe hyponatremia, may be from medication side effect: Patient has nonspecific symptoms of generalized weakness, loss of balance for few weeks. Nonspecific symptoms of seizure, focal weakness or loss of consciousness. On IV fluid normal saline. Baseline sodium level has been in the range of 130-140, admission sodium was 113. Patient denied recent change or adjustment to his medications. This is probably due to medications side effects. Patient is on Depakote, Trileptal, HCTZ and Lasix. Trileptal and Depakote can cause SIADH. Magnesium 1.6. Urine osmolarity 353 more than serum osmolality 235. Urine sodium 32, potassium 40 chloride 101. 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 PT and OT evaluation. 08/05: Discussed with the electronic engineering draftsperson. Serum sodium is gradually getting corrected from 113?119 over last 2 days. Avoid overcorrection, more than 8 mEq in 24 hours. Urine osmolality has improved to 251 from 353. Urine sodium also improved to 65. IV fluid discontinued. Monitor serum sodium. Patient has bilateral leg edema. Hyponatremia seems most probably secondary to NSAIDs and other antipsychotic medications including Depakote, risperidone, Seroquel and BuSpar 08/06: Gradual improvement in sodium, 122. K3.8. Urine osmolality decreased to 162, urine sodium 41. Discussed with electronic engineering draftsperson. 08/07: Started on sodium chloride tablet 1 g twice daily. Lasix 20 mg p.o. twice daily. Advised outpatient urea 30 g daily. Continue fluid restriction. Serum sodium is 125. Sinus arrhythmia with PACs: nurse monitoring shows sinus rhythm with PACs. Twelve-lead EKG was done. Sinus rhythm with PAC, QTC 430 ms. 2D echo is ordered and patient also has leg edema. Denies previous history of A. fib or coronary artery disease. Patient was on Actos and amlodipine. 08/07: 2D echo was done because suggestive of mild chronic diastolic heart failure. Interpretation Summary Normal LV size. Left ventricular systolic function is normal. The estimated ejection fraction is 65 %. Stage 1 diastolic dysfunction. Aortic sclerosis, no stenosis. Mild focal aortic valve calcification. Pulmonary artery systolic pressure is 40 mmHg. #2 type 2 diabetes mellitus: Blood sugars 144. Hemoglobin A1c was 7.8% 2 months ago. Hold oral hypoglycemic agents Blood sugar was on the lower range 95. Scheduled insulin Lantus dose on hold. 08/05: Blood sugar fluctuates from 93-178. 08/06: Glucose 1 46-175. 08/07: Glucose level is controlled. #3 hypertension: Blood pressure stable, continue Norvasc and lisinopril, hold Lasix and HCTZ. Blood pressure still elevated, systolic in 170. Started on hydralazine 50 mg twice daily. As needed IV hydralazine and labetalol. #4 hypothyroidism: TSH 1.36 normal. Continue levothyroxine. #5 depression/bipolar disorder: On multiple antipsychotic medications including Seroquel, Risperdal, BuSpar. Risperdal held. #6 GERD: Continue PPI. #7 hyperlipidemia: Continue statins. #8 DVT prophylaxis: Subcu Lovenox. Clinical Impression(s) from Imaging Studies Chest X-Ray 08/03/20 22:00 IMPRESSION: Normal x-ray examination of the chest. Inpatient E&M: [id number] [facility] L2
[2020-08-07 17:20] LABS: Bedside Glucose 116 mg/dL (70-110)
[2020-08-07] MEDS: 0.9% Normal Saline 1,000 ML 100 ML IV (17:29)
[2020-08-07] MEDS: Sodium Chloride 1 GM Tablet PO (21:25)
[2020-08-07] MEDS: MELATONIN 10 MG TABLET PO (21:25)
[2020-08-07] MEDS: QUEtiapine 100 MG Tablet 300 MG PO (21:25)
[2020-08-07] MEDS: Psyllium 1 PACKET PO (21:26)
[2020-08-07] MEDS: Senna/Docusate Sodium 1 Tablet 2 TABLET PO (21:26)
[2020-08-07] MEDS: Atorvastatin Calcium 40 MG Tablet PO (21:27)
[2020-08-07 21:41] LABS: Bedside Glucose 139 mg/dL (70-110)
[2020-08-08] VITALS (12 sets, daily range): BP systolic 122–153; BP diastolic 40–61; PULSE 73–103; RESP 16–18; TEMP 36.8–36.9; O2SAT 95–97
[2020-08-08] MEDS: Levothyroxine 50 MCG Tablet PO (05:49)
[2020-08-08 06:12] LABS: Urine Sodium < 5 mmol/L (Not Establ.)
[2020-08-08 06:21] LABS: Absolute Neutrophil Count 4.4 X10^3/uL (2.0-7.7); Basophil# 0.02 X10^3/uL; Basophil% 0.3 % (0-1); Eosinophil# 0.01 X10^3/uL; Eosinophils% 0.1 % (0-5); Hematocrit 23.9 % (40-54); Hemoglobin 7.8 g/dL (13.0-16.5); Lymphocyte % 25.1 % (19-41); Mean Corp Hgb Conc 32.6 g/dL (32-36); Mean Corpuscular Hgb 25.3 pg (27.0-32.0); Mean Corpuscular Volume 77.6 fL (80-94); Mean Platelet Vol. 9.5 fl (6.2-12.0); Monocyte# 0.59 X10^3/uL; Monocyte% 8.7 % (0-10); NRBC Flagged by Analyzer 0 % (0-5); Neutrophil # 4.41 X10^3/uL (2.7-7.7); Neutrophil % 65.4 % (47-70); Platelet Count 228 K/mm3 (150-450); RBC Distribution Width CV 16.2 % (11.6-14.6); RBC Distribution Width SD 46.2 fl (35.1-43.9); Red Blood Count 3.08 M/mm3 (4.6-6.2); White Blood Count 6.8 K/mm3 (4.4-11.0)
[2020-08-08 06:44] LABS: Anion Gap 9 (5-15); BUN 40 mg/dL (7-18); BUN/Creat Ratio 35.1 RATIO (10-20); Calcium,Total 7.8 mg/dL (8.5-10.1); Chloride 95 mmol/L (98-107); Creatinine, Serum 1.14 mg/dL (0.70-1.30); EST Glomerular Filtration Rate 67 mL/min (>60); Est Glom Filt Rate - Afr Amer 81 mL/min (>60); Glucose 106 mg/dL (74-106); Potassium 4.3 mmol/L (3.5-5.1); Sodium Level 126 mmol/L (136-145)
[2020-08-08 06:55] LABS: Bedside Glucose 117 mg/dL (70-110)
[2020-08-08 07:01] LABS: Osmolality, Urine 466 mOsm/KG
[2020-08-08 07:01] LABS: Osmolality, Serum 269 mOsm/KG (280-301)
[2020-08-08] MEDS: Senna/Docusate Sodium 1 Tablet 2 TABLET PO (10:02)
[2020-08-08] MEDS: Sodium Chloride 1 GM Tablet PO ×2 (10:07→21:16)
[2020-08-08] MEDS: amLODIPine 5 MG Tablet PO (10:07)
[2020-08-08] MEDS: busPIRone 15 MG TABLET PO ×2 (10:07→21:14)
[2020-08-08] MEDS: QUEtiapine 100 MG Tablet PO (10:10)
[2020-08-08] MEDS: RisperiDONE 1 MG Tablet 3 MG PO ×2 (10:11→21:14)
[2020-08-08] MEDS: 0.9% Saline Lock 10 ML Syringe IV ×2 (10:17→14:18)
[2020-08-08] MEDS: Sodium Ferric Gluconat 250 MG in 0.9% Normal Saline 250 ML 135 MG IV (10:17)
[2020-08-08 11:31] LABS: Bedside Glucose 175 mg/dL (70-110)
[2020-08-08] MEDS: Insulin Lispro 100 UNIT/ML INSULN.PEN SC (12:10)
[2020-08-08] MEDS: Menthol/Lanolin/Calamine/Znox 113 GM Tube 1 APPLIC TOPICAL ×2 (14:26→21:16)
--- NOTE | 2020-08-08 15:46 | CASEMGMT ---
Social Work Per physician, pt is not ready for discharge today. Phone call to [facility] and updated that pt may be ready for discharge over the weekend and updated clinicals faxed. SW met with pt and discussed discharge plan. Pt is agreeable to go to SNF at [facility] and is understanding that he cannot return to assisted living at this time. SW offered to contact family to update on d/c plan but pt denied stating he talks to them daily on the phone and will update. Pt will need a new Covid test prior to discharge. [id number] convalescent form completed in [facility] system. Plan: [facility], when medically ready. CHRISTINA Hodgson
[2020-08-08] MEDS: Tamsulosin HCl 0.4 MG Capsule PO (16:52)
[2020-08-08 17:06] LABS: Bedside Glucose 121 mg/dL (70-110)
--- NOTE | 2020-08-08 17:25 | PN_ITS ---
Patient Problems: Active and Suspected Problems (This Medical Record has been edited. Action required.) Hyponatremia (Acute) Severe hyponatremia (Acute) Reason for Visit: No fever. Heart rate and blood pressure in normal range. [place] shows sinus rhythm with PACs, sinus arrhythmia. Patient concerned of abnormal ultrasound kidney findings. Physical exam General: Alert, Oriented x3, Cooperative HEENT: Atraumatic, PERRLA, EOMI, Normocephalic Oral: No Gingival or Mucosal Lesions/ Ulcerations Neck: Supple, No JVD, Negative Carotid Bruits Lungs: Air entry diminished in bilateral lung bases. No crepitation/rhonchi Cardiovascular: Sinus arrhythmia with PACs normal S1, Normal S2, No murmurs Abdomen: Bowel Sounds Present, Soft, Non Tender, Non-Distended : No renal angle tenderness. No suprapubic tenderness. Extremities: Mild ankle edema, Capillary Refill Less than 3 Seconds Skin: No rashes, No breakdown Musculoskeletal: No Tenderness to Palpation of Joints or Extremities Neurological: Cranial nerves II-XII grossly intact, Deep Tendon Reflexes 2+/4 and Symmetrical, Neuro grossly intact Psych/Mental Status: Normal Affect, Appropriate. Vitals/I&O's: Vital Signs Temp Pulse Resp BP Pulse Ox 98.3 F 87 18 146/60 H 96 08/08/20 16:54 08/08/20 16:54 08/08/20 16:54 08/08/20 16:54 08/08/20 16:54 Oxygen Delivery Method Room Air Weight: 229 lb 0.964 oz Body Mass Index (BMI) 36.9 Finger Stick Blood Glucose 106 Intake and Output for Last 24 Hours 08/06/20 08/07/20 08/08/20 23:59 23:59 23:59 Intake Total 810 / 810 1340 / 1340 1840 / 1840 Output Total 2550 / 2550 700 / 700 920 / 920 Balance -1740 / -1740 640 / 640 920 / 920 Microbiology Past 72 Hours 08/08/20 14:50 Stool Stool Occult Blood (SHIRA) - Final 08/06/20 23:45 Urine, Catheterized Urine Culture - Preliminary Culture exhibits no growth. 08/06/20 17:00 Urine, Catheterized Urine Culture - Preliminary Culture exhibits no growth. 08/06/20 14:30 Mucosa - Nasopharyngeal SARS-CoV-2 Antigen (Rapid) - Final Laboratory Results 08/07/20 21:23: POC Glucose 139 H 08/08/20 05:28: WBC 6.8, RBC 3.08 L, Hgb 7.8 L, Hct 23.9 L, MCV 77.6 L, MCH 25.3 L, MCHC 32.6, RDW Std Deviation 46.2 H, RDW Coeff of Celine 16.2 H, Plt Count 228, MPV 9.5, Immature Gran % (Auto) 0.400, Neut % (Auto) 65.4, Lymph % (Auto) 25.1, [place] % (Auto) 8.7, Eos % (Auto) 0.1, Baso % (Auto) 0.3, Absolute Neuts (auto) 4.4, Absolute Lymphs (auto) 1.70, Nucleated RBC % 0 08/08/20 05:28: Sodium 126 L, Potassium 4.3, Chloride 95 L, Carbon Dioxide 22.0, Anion Gap 9, BUN 40 H, Creatinine 1.14, Estim Creat Clear Calc 51.30, Est GFR (MDRD) Af Amer 81, Est GFR (MDRD) Non-Af 67, BUN/Creatinine Ratio 35.1 H, Glucose 106, Calcium 7.8 L 08/08/20 05:28: Serum Osmolality 269 L 08/08/20 05:30: Urine Osmolality 466, Ur Random Sodium < 5 08/08/20 06:48: POC Glucose 117 H 08/08/20 11:26: POC Glucose 175 H 08/08/20 16:58: POC Glucose 121 H Current Medications Acetaminophen (Acetaminophen 325 Mg Tablet) 650 mg PO Q6H PRN PRN PRN Reason: Pain Score 1-10/Temp > 100.7 F Last Admin: 08/07/20 03:11 Dose: 650 mg Documented by: Amlodipine Besylate (Amlodipine 5 Mg Tablet) 5 mg PO DAILY [facility] Last Admin: 08/08/20 10:07 Dose: 5 mg Documented by: Atorvastatin Calcium (Atorvastatin Calcium 40 Mg Tablet) 40 mg PO QHS [facility] Last Admin: 08/07/20 21:27 Dose: 40 mg Documented by: Buspirone HCl (Buspirone 15 Mg Tablet) 15 mg PO BID [facility] Last Admin: 08/08/20 10:07 Dose: 15 mg Documented by: Calamine/Phenol (Menthol/Lanolin/Calamine/Znox 113 Gm Tube) 1 applic TOPICAL BID PRN PRN; Protocol PRN Reason: RASH/TOPICAL IRRITATION Last Admin: 08/08/20 14:26 Dose: 1 applicatio Documented by: Cyclobenzaprine HCl (Cyclobenzaprine Hcl 5 Mg Tablet) 5 mg PO Q6H PRN PRN PRN Reason: SPASMS Hydralazine HCl (Hydralazine 20 Mg/Ml Vial) 10 mg IV Q4H PRN PRN PRN Reason: SBP more than 180 mmHg Sodium Chloride () 250 mls @ 15 mls/hr IV .[id number] PRN PRN Reason: Saline Flush Last Admin: 08/08/20 10:19 Dose: 15 mls/hr Documented by: Sodium Chloride () 250 mls @ 15 mls/hr IV .[id number] PRN PRN Reason: Additional IVPB Infusion Insulin Glargine (Insulin Glargine 100 Units/Ml Pen) 18 units SC QHS [facility] Last Admin: 08/07/20 21:26 Dose: 18 u Documented by: Insulin Glargine (Insulin Glargine 100 Units/Ml Pen) 10 units SC BREAKFAST [facility] Last Admin: 08/08/20 06:49 Dose: 10 u Documented by: Insulin Human Lispro (Insulin Lispro 100 Unit/Ml Insuln.Pen) 0 unit SC ACHS [facility]; Protocol Last Admin: 08/08/20 16:59 Dose: Not Given Documented by: Levothyroxine Sodium (Levothyroxine 50 Mcg Tablet) 50 mcg PO DAILY@0600 [facility] Last Admin: 08/08/20 05:49 Dose: 50 mcg Documented by: Melatonin (Melatonin 10 Mg Tablet) 10 mg PO QHS [facility] Last Admin: 08/07/20 21:25 Dose: 10 mg Documented by: Ondansetron HCl (Ondansetron 4 Mg/2 Ml Vial) 4 mg IV Q8H PRN PRN PRN Reason: NAUSEA/VOMITING Polyethylene Glycol (Polyethylene Glycol 3350 17 Gm Packet) 17 gm PO DAILY [facility] Last Admin: 08/08/20 10:00 Dose: Not Given Documented by: Psyllium Hydrophilic Mucilloid (Psyllium 1 Packet) 1 packet PO BID [facility] Last Admin: 08/08/20 10:01 Dose: Not Given Documented by: Quetiapine Fumarate (Quetiapine 100 Mg Tablet) 100 mg PO DAILY [facility] Last Admin: 08/08/20 10:10 Dose: 100 mg Documented by: Quetiapine Fumarate (Quetiapine 100 Mg Tablet) 300 mg PO QHS [facility] Last Admin: 08/07/20 21:25 Dose: 300 mg Documented by: Risperidone (Risperidone 1 Mg Tablet) 3 mg PO BID [facility] Last Admin: 08/08/20 10:11 Dose: 3 mg Documented by: Senna/Docusate Sodium (Senna/Docusate Sodium 1 Tablet) 2 tablet PO BID [facility] Last Admin: 08/08/20 10:02 Dose: 2 tablet Documented by: Sodium Chloride (0.9% Saline Lock 10 Ml Syringe) 10 - 40 ml IV UD PRN PRN Reason: SALINE FLUSH Last Admin: 08/08/20 14:18 Dose: 10 ml Documented by: Sodium Chloride (Sodium Chloride 1 Gm Tablet) 1 gm PO BID [facility] Last Admin: 08/08/20 10:07 Dose: 1 gm Documented by: Tamsulosin HCl (Tamsulosin Hcl 0.4 Mg Capsule) 0.4 mg PO DAILY [facility] Last Admin: 08/08/20 16:52 Dose: 0.4 mg Documented by: STROKE Vital Signs/Narrative: Vital Signs Temp Pulse Resp BP Pulse Ox 08/08/20 16:54 98.3 F 87 18 146/60 H 96 08/08/20 16:30 88 08/08/20 13:56 98.2 F 95 18 129/61 H 97 Medical Necessity - Tobacco Use Smoking Status: Never smoker Assessment/Plan All Active Problems (This Medical Record has been edited. Action required.) Hyponatremia (Acute) Severe hyponatremia (Acute) This is a 74 years old male patient presented to the emergency room from the assisted living because of abnormal labs, sodium was 115 mmol/L and upon repeat BMP at the ED, sodium level was 113 and patient is being admitted for evaluation and treatment. #1 Hypotonic, isovolumetric severe hyponatremia, may be from medication side effect: Patient has nonspecific symptoms of generalized weakness, loss of balance for few weeks. Nonspecific symptoms of seizure, focal weakness or loss of consciousness. On IV fluid normal saline. Baseline sodium level has been in the range of 130-140, admission sodium was 113. Patient denied recent change or adjustment to his medications. This is probably due to medications side effects. Patient is on Depakote, Trileptal, HCTZ and Lasix. Trileptal and Depakote can cause SIADH. Magnesium 1.6. Urine osmolarity 353 more than serum osmolality 235. Urine sodium 32, potassium 40 chloride 101. 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 PT and OT evaluation. 08/05: Discussed with the professional housing consultant. Serum sodium is gradually getting corrected from 113?119 over last 2 days. Avoid overcorrection, more than 8 mEq in 24 hours. Urine osmolality has improved to 251 from 353. Urine sodium also improved to 65. IV fluid discontinued. Monitor serum sodium. Patient has bilateral leg edema. Hyponatremia seems most probably secondary to NSAIDs and other antipsychotic medications including Depakote, risperidone, Seroquel and BuSpar 08/06: Gradual improvement in sodium, 122. K3.8. Urine osmolality decreased to 162, urine sodium 41. Discussed with professional housing consultant. 08/07: Started on sodium chloride tablet 1 g twice daily. Lasix 20 mg p.o. twice daily. Advised outpatient urea 30 g daily. Continue fluid restriction. Serum sodium is 125. Sinus arrhythmia with PACs: [place] shows sinus rhythm with PACs. Twelve-lead EKG was done. Sinus rhythm with PAC, QTC 430 ms. 2D echo is ordered and patient also has leg edema. Denies previous history of A. fib or co ronary artery disease. Patient was on Actos and amlodipine. 08/08: Patient had oliguria, urine output about 250 mL first 16 hours yesterday. Functional Consultant was called and agreed on IV fluid normal saline 500 ml and discontinuation of Lasix. Lisinopril already discontinued. Repeat urine osmolarity 466, urine sodium less than 5. Sodium 126. Kidney ultrasound shows mild atrophy and cortical thinning of left kidney, possible chronic renal artery stenosis. No hydronephrosis to suggest obstruction. Bladder was decompressed due to Saleem catheter. Patient on Flomax. 2D echo was done because suggestive of mild chronic diastolic heart failure. Patient might have bilateral ankle edema secondary to amlodipine. Interpretation Summary Normal LV size. Left ventricular systolic function is normal. The estimated ejection fraction is 65 %. Stage 1 diastolic dysfunction. Aortic sclerosis, no stenosis. Mild focal aortic valve calcification. Pulmonary artery systolic pressure is 40 mmHg. #2 type 2 diabetes mellitus: Blood sugars 144. Hemoglobin A1c was 7.8% 2 months ago. Hold oral hypoglycemic agents Blood sugar was on the lower range 95. Scheduled insulin Lantus dose on hold. 08/05: Blood sugar fluctuates from 93-178. 08/06: Glucose 146-175. 08/07: Glucose level is controlled. #3 hypertension: Blood pressure stable, continue Norvasc and lisinopril, hold Lasix and HCTZ. Blood pressure still elevated, systolic in 170. Started on hydralazine 50 mg twice daily. As needed IV hydralazine and labetalol. 08/08: Blood pressure was normal, 111/53 decreased from 170/75. Diltiazem dose decreased to 25 mg twice daily. #Acute anemia, microcytic type chronic anemia: Patient hemoglobin dropped from 10.2/-7.8/. No obvious active bleeding. Stool for occult blood is negative. 200 mg IV iron sucrose given. Monitor H&H at 8 PM tonight. Lovenox DVT prophylaxis discontinued. hypothyroidism: TSH 1.36 normal. Continue levothyroxine. #5 depression/bipolar disorder: On multiple antipsychotic medications including Seroquel, Risperdal, BuSpar. Risperdal resumed #6 GERD: Continue PPI. #7 hyperlipidemia: Continue statins. #8 DVT prophylaxis: Bilateral SCDs Clinical Impression(s) from Imaging Studies Chest X-Ray 08/03/20 22:00 IMPRESSION: Normal x-ray examination of the chest. Renal Ultrasound 08/07/20 10:48 IMPRESSION: 1. No hydronephrosis to suggest obstruction. 2. Mild atrophy and cortical thinning of the left kidney possibly from chronic renal artery stenosis. Correlation with MRA or CTA may be useful. Microbiology Past 72 Hours 08/08/20 14:50 Stool Stool Occult Blood (SHIRA) - Final 08/06/20 23:45 Urine, Catheterized Urine Culture - Preliminary Culture exhibits no growth. 08/06/20 17:00 Urine, Catheterized Urine Culture - Preliminary Culture exhibits no growth. 08/06/20 14:30 Mucosa - Nasopharyngeal SARS-CoV-2 Antigen (Rapid) - Final Laboratory Results 08/07/20 21:23: POC Glucose 139 H 08/08/20 05:28: WBC 6.8, RBC 3.08 L, Hgb 7.8 L, Hct 23.9 L, MCV 77.6 L, MCH 25.3 L, MCHC 32.6, RDW Std Deviation 46.2 H, RDW Coeff of Celine 16.2 H, Plt Count 228, MPV 9.5, Immature Gran % (Auto) 0.400, Neut % (Auto) 65.4, Lymph % (Auto) 25.1, [place] % (Auto) 8.7, Eos % (Auto) 0.1, Baso % (Auto) 0.3, Absolute Neuts (auto) 4.4, Absolute Lymphs (auto) 1.70, Nucleated RBC % 0 08/08/20 05:28: Sodium 126 L, Potassium 4.3, Chloride 95 L, Carbon Dioxide 22.0, Anion Gap 9, BUN 40 H, Creatinine 1.14, Estim Creat Clear Calc 51.30, Est GFR (MDRD) Af Amer 81, Est GFR (MDRD) Non-Af 67, BUN/Creatinine Ratio 35.1 H, Glucose 106, Calcium 7.8 L 08/08/20 05:28: Serum Osmolality 269 L 08/08/20 05:30: Urine Osmolality 466, Ur Random Sodium < 5 08/08/20 06:48: POC Glucose 117 H 08/08/20 11:26: POC Glucose 175 H 08/08/20 16:58: POC Glucose 121 H Inpatient E&M: 24264 Subs Hosp L2
--- NOTE | 2020-08-08 17:45 | PCM.PN.REN ---
Patient Problems: Active and Suspected Problems (This Medical Record has been edited. Action required.) Hyponatremia (Acute) Severe hyponatremia (Acute) Subjective: No shortness of breath no dizziness no complaints - Physical Exam Vitals/I&O's: Vital Signs Temp Pulse Resp BP Pulse Ox 98.3 F 87 18 146/60 H 96 08/08/20 16:54 08/08/20 16:54 08/08/20 16:54 08/08/20 16:54 08/08/20 16:54 Oxygen Delivery Method Room Air Weight: 103.9 kg Body Mass Index (BMI) 36.9 Finger Stick Blood Glucose 106 Intake and Output for Last 24 Hours 08/06/20 08/07/20 08/08/20 23:59 23:59 23:59 Intake Total 810 / 810 1340 / 1340 1880.25 / 1880.25 Output Total 2550 / 2550 700 / 700 920 / 920 Balance -1740 / -1740 640 / 640 960.25 / 960.25 General: Alert, Cooperative HEENT: Atraumatic, Normocephalic Neck: Supple Lungs: Clear to auscultation, Normal air movement Cardiovascular: Regular rate, Regular Rhythm, Normal S1, Normal S2 Abdomen: Bowel Sounds Present, Soft Extremities: No edema Microbiology Past 72 Hours 08/08/20 14:50 Stool Stool Occult Blood (SHIRA) - Final 08/06/20 23:45 Urine, Catheterized Urine Culture - Preliminary Culture exhibits no growth. 08/06/20 17:00 Urine, Catheterized Urine Culture - Preliminary Culture exhibits no growth. 08/06/20 14:30 Mucosa - Nasopharyngeal SARS-CoV-2 Antigen (Rapid) - Final Laboratory Results 08/07/20 21:23: POC Glucose 139 H 08/08/20 05:28: WBC 6.8, RBC 3.08 L, Hgb 7.8 L, Hct 23.9 L, MCV 77.6 L, MCH 25.3 L, MCHC 32.6, RDW Std Deviation 46.2 H, RDW Coeff of Celine 16.2 H, Plt Count 228, MPV 9.5, Immature Gran % (Auto) 0.400, Neut % (Auto) 65.4, Lymph % (Auto) 25.1, [place] % (Auto) 8.7, Eos % (Auto) 0.1, Baso % (Auto) 0.3, Absolute Neuts (auto) 4.4, Absolute Lymphs (auto) 1.70, Nucleated RBC % 0 08/08/20 05:28: Sodium 126 L, Potassium 4.3, Chloride 95 L, Carbon Dioxide 22.0, Anion Gap 9, BUN 40 H, Creatinine 1.14, Estim Creat Clear Calc 51.30, Est GFR (MDRD) Af Amer 81, Est GFR (MDRD) Non-Af 67, BUN/Creatinine Ratio 35.1 H, Glucose 106, Calcium 7.8 L 08/08/20 05:28: Serum Osmolality 269 L 08/08/20 05:30: Urine Osmolality 466, Ur Random Sodium < 5 08/08/20 06:48: POC Glucose 117 H 08/08/20 11:26: POC Glucose 175 H 08/08/20 16:58: POC Glucose 121 H Current Medications Acetaminophen (Acetaminophen 325 Mg Tablet) 650 mg PO Q6H PRN PRN PRN Reason: Pain Score 1-10/Temp > 100.7 F Last Admin: 08/07/20 03:11 Dose: 650 mg Documented by: Amlodipine Besylate (Amlodipine 5 Mg Tablet) 5 mg PO DAILY [facility] Last Admin: 08/08/20 10:07 Dose: 5 mg Documented by: Atorvastatin Calcium (Atorvastatin Calcium 40 Mg Tablet) 40 mg PO QHS [facility] Last Admin: 08/07/20 21:27 Dose: 40 mg Documented by: Buspirone HCl (Buspirone 15 Mg Tablet) 15 mg PO BID [facility] Last Admin: 08/08/20 10:07 Dose: 15 mg Documented by: Calamine/Phenol (Menthol/Lanolin/Calamine/Znox 113 Gm Tube) 1 applic TOPICAL BID PRN PRN; Protocol PRN Reason: RASH/TOPICAL IRRITATION Last Admin: 08/08/20 14:26 Dose: 1 applicatio Documented by: Cyclobenzaprine HCl (Cyclobenzaprine Hcl 5 Mg Tablet) 5 mg PO Q6H PRN PRN PRN Reason: SPASMS Hydralazine HCl (Hydralazine 20 Mg/Ml Vial) 10 mg IV Q4H PRN PRN PRN Reason: SBP more than 180 mmHg Hydralazine HCl (Hydralazine 25 Mg Tablet) 25 mg PO BID [facility] Sodium Chloride () 250 mls @ 15 mls/hr IV .[id number] PRN PRN Reason: Saline Flush Last Infusion: 08/08/20 13:00 Dose: 0 mls/hr Documented by: Sodium Chloride () 250 mls @ 15 mls/hr IV .[id number] PRN PRN Reason: Additional IVPB Infusion Insulin Glargine (Insulin Glargine 100 Units/Ml Pen) 18 units SC QHS [facility] Last Admin: 08/07/20 21:26 Dose: 18 u Documented by: Insulin Glargine (Insulin Glargine 100 Units/Ml Pen) 10 units SC BREAKFAST [facility] Last Admin: 08/08/20 06:49 Dose: 10 u Documented by: Insulin Human Lispro (Insulin Lispro 100 Unit/Ml Insuln.Pen) 0 unit SC ACHS [facility]; Protocol Last Admin: 08/08/20 16:59 Dose: Not Given Documented by: Levothyroxine Sodium (Levothyroxine 50 Mcg Tablet) 50 mcg PO DAILY@0600 [facility] Last Admin: 08/08/20 05:49 Dose: 50 mcg Documented by: Melatonin (Melatonin 10 Mg Tablet) 10 mg PO QHS [facility] Last Admin: 08/07/20 21:25 Dose: 10 mg Documented by: Ondansetron HCl (Ondansetron 4 Mg/2 Ml Vial) 4 mg IV Q8H PRN PRN PRN Reason: NAUSEA/VOMITING Polyethylene Glycol (Polyethylene Glycol 3350 17 Gm Packet) 17 gm PO DAILY [facility] Last Admin: 08/08/20 10:00 Dose: Not Given Documented by: Psyllium Hydrophilic Mucilloid (Psyllium 1 Packet) 1 packet PO BID [facility] Last Admin: 08/08/20 10:01 Dose: Not Given Documented by: Quetiapine Fumarate (Quetiapine 100 Mg Tablet) 100 mg PO DAILY [facility] Last Admin: 08/08/20 10:10 Dose: 100 mg Documented by: Quetiapine Fumarate (Quetiapine 100 Mg Tablet) 300 mg PO QHS [facility] Last Admin: 08/07/20 21:25 Dose: 300 mg Documented by: Risperidone (Risperidone 1 Mg Tablet) 3 mg PO BID [facility] Last Admin: 08/08/20 10:11 Dose: 3 mg Documented by: Senna/Docusate Sodium (Senna/Docusate Sodium 1 Tablet) 2 tablet PO BID [facility] Last Admin: 08/08/20 10:02 Dose: 2 tablet Documented by: Sodium Chloride (0.9% Saline Lock 10 Ml Syringe) 10 - 40 ml IV UD PRN PRN Reason: SALINE FLUSH Last Admin: 08/08/20 14:18 Dose: 10 ml Documented by: Sodium Chloride (Sodium Chloride 1 Gm Tablet) 1 gm PO BID [facility] Last Admin: 08/08/20 10:07 Dose: 1 gm Documented by: Tamsulosin HCl (Tamsulosin Hcl 0.4 Mg Capsule) 0.4 mg PO DAILY [facility] Last Admin: 08/08/20 16:52 Dose: 0.4 mg Documented by: Medical Necessity - Tobacco Use Smoking Status: Never smoker Assessment/Plan All Active Problems (This Medical Record has been edited. Action required.) Hyponatremia (Acute) Severe hyponatremia (Acute) Hyponatremia possible SIADH LE edema Urinary retention Hypertension continue formal fluid restriction with NaCl tabs and restart low dose lasix bid SNa 126 better no more hctz in the future After the holidays he will need Doppler renal arteries to evaluate for renal artery stenosis. Keep Saleem in for urinary retention will need urology follow-up as outpatient. Inpatient consult not available at this time for urology. Scr 1.1 consistent with baseline Hold lisinopril d/w patient
[2020-08-08] MEDS: Furosemide 20 MG Tablet PO (19:29)
[2020-08-08 20:25] LABS: Hematocrit 23.1 % (40-54); Hemoglobin 7.8 g/dL (13.0-16.5)
[2020-08-08] MEDS: Glycerin/Hypromellose/PEG400 15 ml Bottle 2 DRP EACH EYE (21:14)
[2020-08-08] MEDS: MELATONIN 10 MG TABLET PO (21:14)
[2020-08-08] MEDS: QUEtiapine 100 MG Tablet 300 MG PO (21:15)
[2020-08-08] MEDS: Atorvastatin Calcium 40 MG Tablet PO (21:15)
[2020-08-08] MEDS: hydrALAZINE 25 MG Tablet PO (21:23)
[2020-08-08 21:45] LABS: Bedside Glucose 138 mg/dL (70-110)
[2020-08-09] VITALS (17 sets, daily range): BP systolic 110–141; BP diastolic 48–64; PULSE 57–108; RESP 16–18; TEMP 36.6–37.2; O2SAT 94–98
[2020-08-09] MEDS: Levothyroxine 50 MCG Tablet PO (04:55)
[2020-08-09 07:33] LABS: Absolute Neutrophil Count 3.3 X10^3/uL (2.0-7.7); Basophil# 0.02 X10^3/uL; Basophil% 0.3 % (0-1); Eosinophil# 0.04 X10^3/uL; Eosinophils% 0.7 % (0-5); Hematocrit 22.2 % (40-54); Hemoglobin 7.3 g/dL (13.0-16.5); Lymphocyte % 29.6 % (19-41); Mean Corp Hgb Conc 32.9 g/dL (32-36); Mean Corpuscular Hgb 25.3 pg (27.0-32.0); Mean Corpuscular Volume 77.1 fL (80-94); Mean Platelet Vol. 9.5 fl (6.2-12.0); Monocyte# 0.62 X10^3/uL; Monocyte% 10.8 % (0-10); NRBC Flagged by Analyzer 0 % (0-5); Neutrophil # 3.34 X10^3/uL (2.7-7.7); Neutrophil % 58.1 % (47-70); Platelet Count 249 K/mm3 (150-450); RBC Distribution Width CV 16.3 % (11.6-14.6); RBC Distribution Width SD 45.7 fl (35.1-43.9); RET-HE 35.4 pg (30-35); Red Blood Count 2.88 M/mm3 (4.6-6.2); Reticulocyte Count 1.84 % (0.5-1.5); White Blood Count 5.8 K/mm3 (4.4-11.0)
[2020-08-09] MEDS: hydrALAZINE 25 MG Tablet PO ×2 (07:37→21:09)
[2020-08-09] MEDS: Sodium Chloride 1 GM Tablet PO ×2 (07:38→21:08)
[2020-08-09] MEDS: QUEtiapine 100 MG Tablet PO (07:38)
[2020-08-09] MEDS: busPIRone 15 MG TABLET PO ×2 (07:39→21:08)
[2020-08-09] MEDS: Tamsulosin HCl 0.4 MG Capsule PO (07:39)
[2020-08-09] MEDS: Furosemide 20 MG Tablet PO ×2 (07:39→17:01)
[2020-08-09] MEDS: amLODIPine 5 MG Tablet PO (07:40)
[2020-08-09] MEDS: RisperiDONE 1 MG Tablet 3 MG PO ×2 (07:41→21:08)
[2020-08-09] MEDS: Senna/Docusate Sodium 1 Tablet 2 TABLET PO ×2 (07:41→21:09)
[2020-08-09 07:56] LABS: Bedside Glucose 147 mg/dL (70-110)
[2020-08-09 08:09] LABS: Anion Gap 8 (5-15); BUN 38 mg/dL (7-18); BUN/Creat Ratio 36.2 RATIO (10-20); Calcium,Total 7.8 mg/dL (8.5-10.1); Chloride 97 mmol/L (98-107); Creatinine, Serum 1.05 mg/dL (0.70-1.30); EST Glomerular Filtration Rate 73 mL/min (>60); Est Glom Filt Rate - Afr Amer 89 mL/min (>60); Ferritin 145 ng/mL (26-388); Glucose 132 mg/dL (74-106); Iron 200 ug/dL (65-175); Iron Binding Capacity,Total 235 ug/dL (250-450); PERCENT IRON SATURATION 85.1 % (15.0-55.0); Potassium 4.3 mmol/L (3.5-5.1); Sodium Level 129 mmol/L (136-145)
[2020-08-09 08:28] LABS: Vitamin B12 270 pg/mL (211-911)
[2020-08-09] MEDS: Insulin Lispro 100 UNIT/ML INSULN.PEN SC (11:18)
[2020-08-09 11:26] LABS: Bedside Glucose 176 mg/dL (70-110)
--- NOTE | 2020-08-09 15:57 | PCM.PN.REN ---
Patient Problems: Active and Suspected Problems (This Medical Record has been edited. Action required.) Hyponatremia (Acute) Severe hyponatremia (Acute) Subjective: No shortness of breath no chest pain - Physical Exam Vitals/I&O's: Vital Signs Temp Pulse Resp BP Pulse Ox 98.7 F 86 16 110/60 98 08/09/20 13:56 08/09/20 13:56 08/09/20 13:56 08/09/20 13:56 08/09/20 13:56 Oxygen Delivery Method Room Air Weight: 103.9 kg Body Mass Index (BMI) 36.9 Finger Stick Blood Glucose 106 Intake and Output for Last 24 Hours 08/07/20 08/08/20 08/09/20 23:59 23:59 23:59 Intake Total 1340 / 1340 2130.25 / 2130.25 690 / 690 Output Total 700 / 700 1220 / 1220 1200 / 1200 Balance 640 / 640 910.25 / 910.25 -510 / -510 General: Alert, Cooperative HEENT: Atraumatic, Normocephalic Oral: Moist Mucosa Neck: Supple, Trachea Midline Lungs: Clear to auscultation, Normal air movement Cardiovascular: Normal S1, Normal S2 Abdomen: Bowel Sounds Present, Soft Extremities: No edema Microbiology Past 72 Hours 08/06/20 23:45 Urine, Catheterized Urine Culture - Final Culture exhibits no growth. 08/06/20 17:00 Urine, Catheterized Urine Culture - Final Culture exhibits no growth. 08/08/20 14:50 Stool Stool Occult Blood (SHIRA) - Final 08/06/20 14:30 Mucosa - Nasopharyngeal SARS-CoV-2 Antigen (Rapid) - Final Laboratory Results 08/08/20 16:58: POC Glucose 121 H 08/08/20 20:00: Hgb 7.8 L, Hct 23.1 L 08/08/20 21:29: POC Glucose 138 H 08/09/20 06:52: WBC 5.8, RBC 2.88 L, Hgb 7.3 L, Hct 22.2 L, MCV 77.1 L, MCH 25.3 L, MCHC 32.9, RDW Std Deviation 45.7 H, RDW Coeff of Celine 16.3 H, Plt Count 249, MPV 9.5, Immature Gran % (Auto) 0.500, Neut % (Auto) 58.1, Lymph % (Auto) 29.6, Towner % (Auto) 10.8 H, Eos % (Auto) 0.7, Baso % (Auto) 0.3, Absolute Neuts (auto) 3.3, Absolute Lymphs (auto) 1.70, Nucleated RBC % 0, Retic Count 1.84 H, Immature Retic Fraction 7.60, Retic Hgb Equivalent 35.4 H 08/09/20 06:52: Sodium 129 L, Potassium 4.3, Chloride 97 L, Carbon Dioxide 24.0, Anion Gap 8, BUN 38 H, Creatinine 1.05, Estim Creat Clear Calc 55.70, Est GFR (MDRD) Af Amer 89, Est GFR (MDRD) Non-Af 73, BUN/Creatinine Ratio 36.2 H, Glucose 132 H, Calcium 7.8 L, Iron 200 H, TIBC 235 L, Iron Saturation 85.1 H, Ferritin 145, Folate 7.00 08/09/20 06:52: Vitamin B12 270 08/09/20 07:24: POC Glucose 147 H 08/09/20 09:05: Blood Type A NEGATIVE, Antibody Screen NEGATIVE, Crossmatch See Detail 08/09/20 11:17: POC Glucose 176 H Current Medications Acetaminophen (Acetaminophen 325 Mg Tablet) 650 mg PO Q6H PRN PRN PRN Reason: Pain Score 1-10/Temp > 100.7 F Last Admin: 08/07/20 03:11 Dose: 650 mg Documented by: Amlodipine Besylate (Amlodipine 5 Mg Tablet) 5 mg PO DAILY [facility] Last Admin: 08/09/20 07:40 Dose: 5 mg Documented by: Atorvastatin Calcium (Atorvastatin Calcium 40 Mg Tablet) 40 mg PO QHS [facility] Last Admin: 08/08/20 21:15 Dose: 40 mg Documented by: Buspirone HCl (Buspirone 15 Mg Tablet) 15 mg PO BID [facility] Last Admin: 08/09/20 07:39 Dose: 15 mg Documented by: Calamine/Phenol (Menthol/Lanolin/Calamine/Znox 113 Gm Tube) 1 applic TOPICAL BID PRN PRN; Protocol PRN Reason: RASH/TOPICAL IRRITATION Last Admin: 08/08/20 21:16 Dose: 1 applicatio Documented by: Cyclobenzaprine HCl (Cyclobenzaprine Hcl 5 Mg Tablet) 5 mg PO Q6H PRN PRN PRN Reason: SPASMS Furosemide (Furosemide 20 Mg Tablet) 20 mg PO BID@1000,1800 [facility] Last Admin: 08/09/20 07:39 Dose: 20 mg Documented by: Hydralazine HCl (Hydralazine 20 Mg/Ml Vial) 10 mg IV Q4H PRN PRN PRN Reason: SBP more than 180 mmHg Hydralazine HCl (Hydralazine 25 Mg Tablet) 25 mg PO BID [facility] Last Admin: 08/09/20 07:37 Dose: 25 mg Documented by: Sodium Chloride () 250 mls @ 15 mls/hr IV .[id number] PRN PRN Reason: Saline Flush Last Infusion: 08/08/20 13:00 Dose: 0 mls/hr Documented by: Sodium Chloride () 250 mls @ 15 mls/hr IV .[id number] PRN PRN Reason: Additional IVPB Infusion Insulin Glargine ([facility]ulin [facility] 100 Units/[facility]l [facility]) [facility] Admin: 08/08/20 21:33 Dose: 8 u Documented by: Insulin Glargine (Insulin Glargine 100 Units/Ml Pen) 10 units SC BREAKFAST [facility] Last Admin: 08/09/20 07:37 Dose: 10 u Documented by: Insulin Human Lispro (Insulin Lispro 100 Unit/Ml Insuln.Pen) 0 unit SC ACHS [facility]; Protocol Last Admin: 08/09/20 11:18 Dose: 2 u Documented by: Levothyroxine Sodium (Levothyroxine 50 Mcg Tablet) 50 mcg PO DAILY@0600 [facility] Last Admin: 08/09/20 04:55 Dose: 50 mcg Documented by: Melatonin (Melatonin 10 Mg Tablet) 10 mg PO QHS [facility] Last Admin: 08/08/20 21:14 Dose: 10 mg Documented by: Ondansetron HCl (Ondansetron 4 Mg/2 Ml Vial) 4 mg IV Q8H PRN PRN PRN Reason: NAUSEA/VOMITING Polyethylene Glycol (Polyethylene Glycol 3350 17 Gm Packet) 17 gm PO DAILY [facility] Last Admin: 08/09/20 07:40 Dose: Not Given Documented by: Psyllium Hydrophilic Mucilloid (Psyllium 1 Packet) 1 packet PO BID [facility] Last Admin: 08/09/20 07:40 Dose: Not Given Documented by: Quetiapine Fumarate (Quetiapine 100 Mg Tablet) 100 mg PO DAILY [facility] Last Admin: 08/09/20 07:38 Dose: 100 mg Documented by: Quetiapine Fumarate (Quetiapine 100 Mg Tablet) 300 mg PO QHS [facility] Last Admin: 08/08/20 21:15 Dose: 300 mg Documented by: Risperidone (Risperidone 1 Mg Tablet) 3 mg PO BID [facility] Last Admin: 08/09/20 07:41 Dose: 3 mg Documented by: Senna/Docusate Sodium (Senna/Docusate Sodium 1 Tablet) 2 tablet PO BID [facility] Last Admin: 08/09/20 07:41 Dose: 2 tablet Documented by: Sodium Chloride (0.9% Saline Lock 10 Ml Syringe) 10 - 40 ml IV UD PRN PRN Reason: SALINE FLUSH Last Admin: 08/08/20 14:18 Dose: 10 ml Documented by: Sodium Chloride (Sodium Chloride 1 Gm Tablet) 1 gm PO BID [facility] Last Admin: 08/09/20 07:38 Dose: 1 gm Documented by: Tamsulosin HCl (Tamsulosin Hcl 0.4 Mg Capsule) 0.4 mg PO DAILY [facility] Last Admin: 08/09/20 07:39 Dose: 0.4 mg Documented by: Medical Necessity - Tobacco Use Smoking Status: Never smoker Assessment/Plan All Active Problems (This Medical Record has been edited. Action required.) Hyponatremia (Acute) Severe hyponatremia (Acute) Hyponatremia possible SIADH LE edema Urinary retention Hypertension continue formal fluid restriction with NaCl tabs and low dose lasix bid SNa 129 from 126 better no more hctz in the future After the holidays he will need Doppler renal arteries to evaluate for renal artery stenosis. Keep Saleem in for urinary retention will need urology follow-up as outpatient. Inpatient consult not available at this time for urology. Scr 1.05 consistent with baseline PRBC transfusion today Hold lisinopril d/w patient
--- NOTE | 2020-08-09 15:58 | PN_ITS ---
Patient Problems: Active and Suspected Problems (This Medical Record has been edited. Action required.) Hyponatremia (Acute) Severe hyponatremia (Acute) Reason for Visit: Follow-up for anemia. Hyponatremia and urine retention Objective: Patient has drop in the hemoglobin the afternoon after iron infusion yesterday. Hemoglobin 7.3 g%. Heart rate and blood pressure are normal. Patient is not short of breath or dizzy or showing signs of anemia. Physical exam General: Alert, Oriented x3, Cooperative HEENT: Atraumatic, PERRLA, EOMI, Normocephalic Oral: No Gingival or Mucosal Lesions/ Ulcerations Neck: Supple, No JVD, Negative Carotid Bruits Lungs: Air entry diminished in bilateral lung bases. No crepitation/rhonchi Cardiovascular: Sinus rhythm with PACs and sinus arrhythmia normal S1, Normal S2, No murmurs Abdomen: Bowel Sounds Present, Soft, Non Tender, Non-Distended : No renal angle tenderness. No suprapubic tenderness. Extremities: Mild bilateral ankle edema, Capillary Refill Less than 3 Seconds Skin: No rashes, No breakdown Musculoskeletal: No Tenderness to Palpation of Joints or Extremities Neurological: Cranial nerves II-XII grossly intact, Deep Tendon Reflexes 2+/4 and Symmetrical, Neuro grossly intact Psych/Mental Status: Normal Affect, Appropriate. Vitals/I&O's: Vital Signs Temp Pulse Resp BP Pulse Ox 98.7 F 86 16 110/60 98 08/09/20 13:56 08/09/20 13:56 08/09/20 13:56 08/09/20 13:56 08/09/20 13:56 Oxygen Delivery Method Room Air Weight: 229 lb 0.964 oz Body Mass Index (BMI) 36.9 Finger Stick Blood Glucose 106 Intake and Output for Last 24 Hours 08/07/20 08/08/20 08/09/20 23:59 23:59 23:59 Intake Total 1340 / 1340 2130.25 / 2130.25 690 / 690 Output Total 700 / 700 1220 / 1220 1200 / 1200 Balance 640 / 640 910.25 / 910.25 -510 / -510 Microbiology Past 72 Hours 08/06/20 23:45 Urine, Catheterized Urine Culture - Final Culture exhibits no growth. 08/06/20 17:00 Urine, Catheterized Urine Culture - Final Culture exhibits no growth. 08/08/20 14:50 Stool Stool Occult Blood (SHIRA) - Final 08/06/20 14:30 Mucosa - Nasopharyngeal SARS-CoV-2 Antigen (Rapid) - Final Laboratory Results 08/08/20 16:58: POC Glucose 121 H 08/08/20 20:00: Hgb 7.8 L, Hct 23.1 L 08/08/20 21:29: POC Glucose 138 H 08/09/20 06:52: WBC 5.8, RBC 2.88 L, Hgb 7.3 L, Hct 22.2 L, MCV 77.1 L, MCH 25.3 L, MCHC 32.9, RDW Std Deviation 45.7 H, RDW Coeff of Celine 16.3 H, Plt Count 249, MPV 9.5, Immature Gran % (Auto) 0.500, Neut % (Auto) 58.1, Lymph % (Auto) 29.6, Freestone % (Auto) 10.8 H, Eos % (Auto) 0.7, Baso % (Auto) 0.3, Absolute Neuts (auto) 3.3, Absolute Lymphs (auto) 1.70, Nucleated RBC % 0, Retic Count 1.84 H, Immature Retic Fraction 7.60, Retic Hgb Equivalent 35.4 H 08/09/20 06:52: Sodium 129 L, Potassium 4.3, Chloride 97 L, Carbon Dioxide 24.0, Anion Gap 8, BUN 38 H, Creatinine 1.05, Estim Creat Clear Calc 55.70, Est GFR (MDRD) Af Amer 89, Est GFR (MDRD) Non-Af 73, BUN/Creatinine Ratio 36.2 H, Glucose 132 H, Calcium 7.8 L, Iron 200 H, TIBC 235 L, Iron Saturation 85.1 H, Ferritin 145, Folate 7.00 08/09/20 06:52: Vitamin B12 270 08/09/20 07:24: POC Glucose 147 H 08/09/20 09:05: Blood Type A NEGATIVE, Antibody Screen NEGATIVE, Crossmatch See Detail 08/09/20 11:17: POC Glucose 176 H Current Medications Acetaminophen (Acetaminophen 325 Mg Tablet) 650 mg PO Q6H PRN PRN PRN Reason: Pain Score 1-10/Temp > 100.7 F Last Admin: 08/07/20 03:11 Dose: 650 mg Documented by: Amlodipine Besylate (Amlodipine 5 Mg Tablet) 5 mg PO DAILY [facility] Last Admin: 08/09/20 07:40 Dose: 5 mg Documented by: Atorvastatin Calcium (Atorvastatin Calcium 40 Mg Tablet) 40 mg PO QHS [facility] Last Admin: 08/08/20 21:15 Dose: 40 mg Documented by: Buspirone HCl (Buspirone 15 Mg Tablet) 15 mg PO BID [facility] Last Admin: 08/09/20 07:39 Dose: 15 mg Documented by: Calamine/Phenol (Menthol/Lanolin/Calamine/Znox 113 Gm Tube) 1 applic TOPICAL BID PRN PRN; Protocol PRN Reason: RASH/TOPICAL IRRITATION Last Admin: 08/08/20 21:16 Dose: 1 applicatio Documented by: Cyclobenzaprine HCl (Cyclobenzaprine Hcl 5 Mg Tablet) 5 mg PO Q6H PRN PRN PRN Reason: SPASMS Furosemide (Furosemide 20 Mg Tablet) 20 mg PO BID@1000,1800 [facility] Last Admin: 08/09/20 07:39 Dose: 20 mg Documented by: Hydralazine HCl (Hydralazine 20 Mg/Ml Vial) 10 mg IV Q4H PRN PRN PRN Reason: SBP more than 180 mmHg Hydralazine HCl (Hydralazine 25 Mg Tablet) 25 mg PO BID [facility] Last Admin: 08/09/20 07:37 Dose: 25 mg Documented by: Sodium Chloride () 250 mls @ 15 mls/hr IV .[id number] PRN PRN Reason: Saline Flush Last Infusion: 08/08/20 13:00 Dose: 0 mls/hr Documented by: Sodium Chloride () 250 mls @ 15 mls/hr IV .[id number] PRN PRN Reason: Additional IVPB Infusion Insulin Glargine (Insulin Glargine 100 Units/Ml Pen) 18 units SC QHS [facility] Last Admin: 08/08/20 21:33 Dose: 8 u Documented by: Insulin Glargine (Insulin Glargine 100 Units/Ml Pen) 10 units SC BREAKFAST [facility] Last Admin: 08/09/20 07:37 Dose: 10 u Documented by: Insulin Human Lispro (Insulin Lispro 100 Unit/Ml Insuln.Pen) 0 unit SC ACHS [facility]; Protocol Last Admin: 08/09/20 11:18 Dose: 2 u Documented by: Levothyroxine Sodium (Levothyroxine 50 Mcg Tablet) 50 mcg PO DAILY@0600 [facility] Last Admin: 08/09/20 04:55 Dose: 50 mcg Documented by: Melatonin (Melatonin 10 Mg Tablet) 10 mg PO QHS [facility] Last Admin: 08/08/20 21:14 Dose: 10 mg Documented by: Ondansetron HCl (Ondansetron 4 Mg/2 Ml Vial) 4 mg IV Q8H PRN PRN PRN Reason: NAUSEA/VOMITING Polyethylene Glycol (Polyethylene Glycol 3350 17 Gm Packet) 17 gm PO DAILY [facility] Last Admin: 08/09/20 07:40 Dose: Not Given Documented by: Psyllium Hydrophilic Mucilloid (Psyllium 1 Packet) 1 packet PO BID [facility] Last Admin: 08/09/20 07:40 Dose: Not Given Documented by: Quetiapine Fumarate (Quetiapine 100 Mg Tablet) 100 mg PO DAILY [facility] Last Admin: 08/09/20 07:38 Dose: 100 mg Documented by: Quetiapine Fumarate (Quetiapine 100 Mg Tablet) 300 mg PO QHS [facility] Last Admin: 08/08/20 21:15 Dose: 300 mg Documented by: Risperidone (Risperidone 1 Mg Tablet) 3 mg PO BID [facility] Last Admin: 08/09/20 07:41 Dose: 3 mg Documented by: Senna/Docusate Sodium (Senna/Docusate Sodium 1 Tablet) 2 tablet PO BID [facility] Last Admin: 08/09/20 07:41 Dose: 2 tablet Documented by: Sodium Chloride (0.9% Saline Lock 10 Ml Syringe) 10 - 40 ml IV UD PRN PRN Reason: SALINE FLUSH Last Admin: 08/08/20 14:18 Dose: 10 ml Documented by: Sodium Chloride (Sodium Chloride 1 Gm Tablet) 1 gm PO BID [facility] Last Admin: 08/09/20 07:38 Dose: 1 gm Documented by: Tamsulosin HCl (Tamsulosin Hcl 0.4 Mg Capsule) 0.4 mg PO DAILY [facility] Last Admin: 08/09/20 07:39 Dose: 0.4 mg Documented by: STROKE Vital Signs/Narrative: Vital Signs Temp Pulse Resp BP Pulse Ox 08/09/20 13:56 98.7 F 86 16 110/60 98 08/09/20 13:54 98.4 F 93 16 121/51 H 97 08/09/20 12:54 98.7 F 86 16 110/60 98 08/09/20 12:35 90 08/09/20 11:59 98.1 F 70 16 117/49 L 97 Medical Necessity - Tobacco Use Smoking Status: Never smoker Assessment/Plan All Active Problems (This Medical Record has been edited. Action required.) Hyponatremia (Acute) Severe hyponatremia (Acute) This is a 74 years old male patient presented to the emergency room from the assisted living because of abnormal labs, sodium was 115 mmol/L and upon repeat BMP at the ED, sodium level was 113 and patient is being admitted for evaluation and treatment. #1 Hypotonic, isovolumetric severe hyponatremia, may be from medication side effect: Patient has nonspecific symptoms of generalized weakness, loss of balance for few weeks. Nonspecific symptoms of seizure, focal weakness or loss of consciousness. On IV fluid normal saline. Baseline sodium level has been in the range of 130-140, admission sodium was 113. Patient denied recent change or adjustment to his medications. This is pr obably due to medications side effects. Patient is on Depakote, Trileptal, HCTZ and Lasix. Trileptal and Depakote can cause SIADH. Magnesium 1.6. Urine osmolarity 353 more than serum osmolality 235. Urine sodium 32, potassium 40 chloride 101. 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 PT and OT evaluation. 08/05: Discussed with the estate and trust tax principal. Serum sodium is gradually getting corrected from 113?119 over last 2 days. Avoid overcorrection, more than 8 mEq in 24 hours. Urine osmolality has improved to 251 from 353. Urine sodium also improved to 65. IV fluid discontinued. Monitor serum sodium. Patient has bilateral leg edema. Hyponatremia seems most probably secondary to NSAIDs and other antipsychotic medications including Depakote, risperidone, Seroquel and BuSpar 08/06: Gradual improvement in sodium, 122. K3.8. Urine osmolality decreased to 162, urine sodium 41. Discussed with estate and trust tax principal. 08/07: Started on sodium chloride tablet 1 g twice daily. Lasix 20 mg p.o. twice daily. Advised outpatient urea 30 g daily. Continue fluid restriction. Serum sodium is 125. Sinus arrhythmia with PACs: paper roller shows sinus rhythm with PACs. Twelve-lead EKG was done. Sinus rhythm with PAC, QTC 430 ms. 2D echo is ordered and patient also has leg edema. Denies previous history of A. fib or coronary artery disease. Patient was on Actos and amlodipine. 08/08: Patient had oliguria, urine output about 250 mL first 16 hours yesterday. Assistant Chief Train Dispatcher was called and agreed on IV fluid normal saline 500 ml and discontinuation of Lasix. Lisinopril already discontinued. Repeat urine osmolarity 466, urine sodium less than 5. Sodium 126. Kidney ultrasound shows mild atrophy and cortical thinning of left kidney, possible chronic renal artery stenosis. No hydronephrosis to suggest obstruction. Bladder was decompressed due to Saleem catheter. Patient on Flomax. 08/09: Patient has -1.6 L fluid balance. 1200 urine output yesterday and 1200 urine output since midnight. Sodium is 129. BUN/creatinine 38/1.05 2D echo was done because suggestive of mild chronic diastolic heart failure. Patient might have bilateral ankle edema secondary to amlodipine. Interpretation Summary Normal LV size. Left ventricular systolic function is normal. The estimated ejection fraction is 65 %. Stage 1 diastolic dysfunction. Aortic sclerosis, no stenosis. Mild focal aortic valve calcification. Pulmonary artery systolic pressure is 40 mmHg. #2 type 2 diabetes mellitus: Blood sugars 144. Hemoglobin A1c was 7.8% 2 months ago. Hold oral hypoglycemic agents Blood sugar was on the lower range 95. Scheduled insulin Lantus dose on hold. 08/05: Blood sugar fluctuates from 93-178. 08/06: Glucose 146-175. 08/07: Glucose level is controlled. #3 hypertension: Blood pressure stable, continue Norvasc and lisinopril, hold Lasix and HCTZ. Blood pressure still elevated, systolic in 170. Started on hydralazine 50 mg twice daily. As needed IV hydralazine and labetalol. 08/08: Blood pressure was normal, 111/53 decreased from 170/75. Diltiazem dose decreased to 25 mg twice daily. 08/09: Blood pressure is normal. #Acute anemia, microcytic type chronic anemia: Patient hemoglobin dropped from 10.2/31-7.8/24. No obvious active bleeding. Stool for occult blood is negative. 200 mg IV iron sucrose given. Monitor H&H at 8 PM tonight. Lovenox DVT prophylaxis discontinued. 08/09: Iron work-up shows high iron, TIBC low with iron saturation 85.1 and ferritin normal. Labs consistent with anemia of chronic disease. Reticulocyte count is high 1.84, suggestive of reactive bone marrow. 1 unit of PRBC ordered. CBC and BMP tomorrow a.m. hypothyroidism: TSH 1.36 normal. Continue levothyroxine. #5 depression/bipolar disorder: On multiple antipsychotic medications including Seroquel, Risperdal, BuSpar. Risperdal resumed #6 GERD: Continue PPI. #7 hyperlipidemia: Continue statins. #8 DVT prophylaxis: Bilateral SCDs Clinical Impression(s) from Imaging Studies Chest X-Ray 08/03/20 22:00 IMPRESSION: Normal x-ray examination of the chest. Renal Ultrasound 08/07/20 10:48 IMPRESSION: 1. No hydronephrosis to suggest obstruction. 2. Mild atrophy and cortical thinning of the left kidney possibly from chronic renal artery stenosis. Correlation with MRA or CTA may be useful. Microbiology Past 72 Hours 08/08/20 14:50 Stool Stool Occult Blood (SHIRA) - Final 08/06/20 23:45 Urine, Catheterized Urine Culture - Preliminary Culture exhibits no growth. 08/06/20 17:00 Urine, Catheterized Urine Culture - Preliminary Culture exhibits no growth. 08/06/20 14:30 Mucosa - Nasopharyngeal SARS-CoV-2 Antigen (Rapid) - Final Laboratory Results 08/07/20 21:23: POC Glucose 139 H 08/08/20 05:28: WBC 6.8, RBC 3.08 L, Hgb 7.8 L, Hct 23.9 L, MCV 77.6 L, MCH 25.3 L, MCHC 32.6, RDW Std Deviation 46.2 H, RDW Coeff of Celine 16.2 H, Plt Count 228, MPV 9.5, Immature Gran % (Auto) 0.400, Neut % (Auto) 65.4, Lymph % (Auto) 25.1, Freestone % (Auto) 8.7, Eos % (Auto) 0.1, Baso % (Auto) 0.3, Absolute Neuts (auto) 4.4, Absolute Lymphs (auto) 1.70, Nucleated RBC % 0 08/08/20 05:28: Sodium 126 L, Potassium 4.3, Chloride 95 L, Carbon Dioxide 22.0, Anion Gap 9, BUN 40 H, Creatinine 1.14, Estim Creat Clear Calc 51.30, Est GFR (MDRD) Af Amer 81, Est GFR (MDRD) Non-Af 67, BUN/Creatinine Ratio 35.1 H, Glucose 106, Calcium 7.8 L 08/08/20 05:28: Serum Osmolality 269 L 08/08/20 05:30: Urine Osmolality 466, Ur Random Sodium < 5 08/08/20 06:48: POC Glucose 117 H 08/08/20 11:26: POC Glucose 175 H 08/08/20 16:58: POC Glucose 121 H Inpatient E&M: 61432 Subs Hosp L2
[2020-08-09] MEDS: Cyanocobalamin 500 MCG Tablet 1000 MCG PO (17:06)
[2020-08-09 17:10] LABS: Bedside Glucose 133 mg/dL (70-110)
[2020-08-09] MEDS: MELATONIN 10 MG TABLET PO (21:08)
[2020-08-09] MEDS: Atorvastatin Calcium 40 MG Tablet PO (21:09)
[2020-08-09] MEDS: QUEtiapine 100 MG Tablet 300 MG PO (21:11)
[2020-08-09 21:20] LABS: Bedside Glucose 147 mg/dL (70-110)
[2020-08-10] VITALS (7 sets, daily range): BP systolic 123–138; BP diastolic 62–88; PULSE 77–94; RESP 16–18; TEMP 37–37.2; O2SAT 98
[2020-08-10] MEDS: Levothyroxine 50 MCG Tablet PO (06:29)
[2020-08-10 06:36] LABS: Bedside Glucose 132 mg/dL (70-110)
[2020-08-10 06:39] LABS: Basophil# 0.03 X10^3/uL; Basophil% 0.4 % (0-1); Eosinophil# 0.14 X10^3/uL; Hematocrit 23.5 % (40-54); Hemoglobin 7.9 g/dL (13.0-16.5); Lymphocyte % 31.5 % (19-41); Mean Corp Hgb Conc 33.6 g/dL (32-36); Mean Corpuscular Hgb 26.2 pg (27.0-32.0); Mean Corpuscular Volume 77.8 fL (80-94); Mean Platelet Vol. 9.3 fl (6.2-12.0); Monocyte# 0.63 X10^3/uL; NRBC Flagged by Analyzer 0 % (0-5); Neutrophil # 3.97 X10^3/uL (2.7-7.7); Neutrophil % 56.8 % (47-70); Platelet Count 253 K/mm3 (150-450); RBC Distribution Width CV 16.3 % (11.6-14.6); Red Blood Count 3.02 M/mm3 (4.6-6.2)
[2020-08-10 07:08] LABS: Anion Gap 8 (5-15); BUN 32 mg/dL (7-18); BUN/Creat Ratio 33.5 RATIO (10-20); Calcium,Total 7.9 mg/dL (8.5-10.1); Chloride 97 mmol/L (98-107); Creatinine, Serum 0.96 mg/dL (0.70-1.30); EST Glomerular Filtration Rate 82 mL/min (>60); Est Glom Filt Rate - Afr Amer 99 mL/min (>60); Estimated Creatinine Clearance 60.92 ml/min; Glucose 123 mg/dL (74-106); Sodium Level 129 mmol/L (136-145)
[2020-08-10] MEDS: Sodium Chloride 1 GM Tablet PO (09:09)
[2020-08-10] MEDS: QUEtiapine 100 MG Tablet PO (09:09)
[2020-08-10] MEDS: Senna/Docusate Sodium 1 Tablet 2 TABLET PO (09:09)
[2020-08-10] MEDS: hydrALAZINE 25 MG Tablet PO (09:10)
[2020-08-10] MEDS: Furosemide 20 MG Tablet PO (09:10)
[2020-08-10] MEDS: Tamsulosin HCl 0.4 MG Capsule PO (09:11)
[2020-08-10] MEDS: busPIRone 15 MG TABLET PO (09:11)
[2020-08-10] MEDS: Psyllium 1 PACKET PO (09:13)
[2020-08-10] MEDS: RisperiDONE 1 MG Tablet 3 MG PO (09:13)
[2020-08-10] MEDS: Polyethylene Glycol 3350 17 GM PACKET PO (09:13)
[2020-08-10] MEDS: amLODIPine 5 MG Tablet PO (09:15)
[2020-08-10] MEDS: Cyanocobalamin 500 MCG Tablet 1000 MCG PO (09:27)
--- NOTE | 2020-08-10 10:21 | DCINST_ITS ---
- Discharge Diagnoses Current Active Problems: Current Active and Chronic Problems (This Medical Record has been edited. Action required.) Hyponatremia (Acute) Severe hyponatremia (Acute) Depression (Chronic) Type 2 diabetes mellitus (Chronic) Hyperlipidemia (Chronic) Hypothyroidism (Chronic) Hypertension (Chronic) GERD (gastroesophageal reflux disease) (Chronic) Bipolar disorder (Chronic) You will use the following diet at home:: Calorie/Carbohydrate Controlled (specify 1200, 1400, etc) - carb controlled 1800 ADA diet, Cardiac Your food should be the consistency of: Regular Discharge Activity: May Not Drive Weight Bearing Status: Weight bearing as tolerated Call your doctor if you observe: Fever of 101 or Higher, Coldness, Increased Pain, Numbness or Tingling, Change in Color, Inability to urinate, Inability to have a bowel movement, Shortness of breath, Dizziness, Fainting spells, Swelling in the ankles, Chest pain, Prolonged hiccoughing, Increased palpitations (irregular heartbeat), Calf discomfort, Uncontrolled pain Allergies/Adverse Reactions: Allergies hydrochlorothiazide [From Maxzide] Allergy (Verified 08/03/20 19:17) Unknown triamterene [From Maxzide] Allergy (Verified 08/03/20 19:17) Unknown Medications to take at Discharge Saxagliptin HCl [Onglyza] 5 mg PO DAILY 11/28/15 Omeprazole [Prilosec] 20 mg PO BID 06/04/16 Cholecalciferol (VIT D3) [Vitamin D3] 1,000 unit PO BID 11/08/18 Levothyroxine [Synthroid] 50 mcg PO DAILY 11/08/18 Melatonin 10 mg PO QHS 11/08/18 Quetiapine Fumarate [Seroquel] 100 mg PO DAILY 11/08/18 Quetiapine Fumarate [Seroquel] 300 mg PO QHS 11/08/18 cycloBENZAPRine HCl [Flexeril] 5 mg PO Q6H PRN PRN 11/08/18 Amlodipine [Norvasc] 5 mg PO DAILY 07/08/20 Atorvastatin Calcium 40 mg PO QHS 07/08/20 Furosemide [Lasix] 20 mg PO DAILY 07/08/20 Guaifenesin [Robitussin] 10 mg PO Q4H PRN PRN 07/08/20 Insulin Lispro [Humalog] 100 unit SQ DAILY 07/08/20 Oxcarbazepine [Trileptal] 600 mg PO BID 07/08/20 Polyethylene Glycol 3350 [Miralax] 17 gm PO DAILY 07/08/20 Potassium 20 mg PO DAILY 07/08/20 Risperidone [Risperdal] 3 mg PO BID 07/08/20 Senna [Senokot] 2 tab PO DAILY 07/08/20 busPIRone [Buspar] 15 mg PO BID 07/08/20 Acetaminophen 1,000 mg PO Q4H PRN PRN 08/03/20 Bisacodyl 1 supp.rect RECTAL Q72H PRN 08/03/20 Carboxymethylcellulose Sodium [Artificial Tears] 1 drp OP BID PRN 08/03/20 Hydroxyzine Pamoate [Vistaril] 25 mg PO Q6H PRN PRN 08/03/20 Ibuprofen 400 mg PO Q6H PRN 08/03/20 Cyanocobalamin [Vitamin B12] 1,000 mcg PO DAILY@0800 #30 tab 08/10/20 Insulin Glargine [Lantus SoloStar Pen] 10 units SC BREAKFAST #1 ml 08/10/20 Insulin Glargine,Hum.rec.anlog [Lantus] 15 unit SQ QHS #0 08/10/20 Lisinopril 20 mg PO DAILY #0 08/10/20 Tamsulosin HCl [Flomax] 0.4 mg PO DAILY #30 cap 08/10/20 hydrALAZINE [Apresoline] 25 mg PO BID #60 tab 08/10/20 The following prescriptions were given: hydrALAZINE [Apresoline] 25 mg PO BID #60 tab Tamsulosin HCl [Flomax] 0.4 mg PO DAILY #30 cap Insulin Glargine [Lantus SoloStar Pen] 10 units SC BREAKFAST #1 ml Cyanocobalamin [Vitamin B12] 1,000 mcg PO DAILY@0800 #30 tab Primary Care Physician: Parviz Acevedo MD [Primary Care Provider] - Please follow up with your Primary Care Physician in: in 2 weeks Test Results: Test results from this visit will be discussed in further detail at your follow- up appointment, if applicable. Please Follow Up With: Eliud Almaguer MD When: in 2-4 weeks Please Follow Up With: Tyson Melara MD When: on 08/12/2019 with Saleem catheter
--- NOTE | 2020-08-10 10:49 | PCM.TXEXTCAR ---
- Diet 08/07/20 11:18 Diet: Cardiac - Heart Healthy Food consistency:: Regular Liquid Consistency:: Regular/Thin Is pt able to select menu?: Yes Diet Comments: 1200mL Fluid Restriction; magic cup w/ dinner - Routine Orders/Code Status Suppository Type: Dulcolax 10mg Suppository Frequency: Daily PRN Routine Lab Work: CBC - WEEKLY, BMP - weekly - Wound(s) L Buttock Wound Type: Pressure Injury BLE Wound Type: Abrasion - Therapies Weight Bearing: Weight bearing as tolerated Extremity Affected:: Bilateral Lower Physical Therapy: Eval and Treat Occupational Therapy: Eval and Treat Speech Therapy: Eval and Treat - Allergies/Procedures Done in Hospital Allergies/Adverse Reactions: Allergies hydrochlorothiazide [From Maxzide] Allergy (Verified 08/03/20 19:17) Unknown triamterene [From Maxzide] Allergy (Verified 08/03/20 19:17) Unknown - Type of Care/Length of Stay Estimated LOS: Convalescent Care Less Than 30 days Type of Care Needed: Skilled Rehab Potential: Good Prognosis: Good - Additional Orders/Day of Discharge Additional Orders: Call Dr. Gaines on August 12, 2020 to schedule office visit for urine retention. Patient discharged with Saleem catheter Day of Discharge: 08/10/20 - Dietary and Speech Recommendations Dietitian Recommendations/Changes: Will change diet to cardiac w/ 1200mL Fluid Restriction per nephrology. Will try Magic Cup at dinner. Will d/c Glucerna d/t pt refusal. - Follow Up Care Primary Care Physician: Parviz Acevedo MD [Primary Care Provider] - Please follow up with your Primary Care Physician in: in 2 weeks Please Follow Up With: Eliud Almaguer MD When: in 2-4 weeks Please Follow Up With: Tyson Melara MD When: on 08/12/2019 with Saleem catheter
--- NOTE | 2020-08-10 10:51 | PCM.DC.SUM ---
Discharge Date and Diagnosis - Problem List Patient Problems: Active and Suspected Problems (This Medical Record has been edited. Action required.) Hyponatremia (Acute) Severe hyponatremia (Acute) Date of Admission: 08/03/20 Date of Discharge: 08/10/20 - Primary Discharge Diagnosis Acute Problems: Active Problems (This Medical Record has been edited. Action required.) Hyponatremia (Acute) Severe hyponatremia (Acute) - Secondary Discharge Diagnosis Chronic Problems: Chronic Problems (This Medical Record has been edited. Action required.) Depression (Chronic) Type 2 diabetes mellitus (Chronic) Hyperlipidemia (Chronic) Hypothyroidism (Chronic) Hypertension (Chronic) GERD (gastroesophageal reflux disease) (Chronic) Bipolar disorder (Chronic) Hospital Course and Treatment Summary of Care Provided: ] This is a 74 years old male patient presented to the emergency room from the assisted living because of abnormal labs, sodium was 115 mmol/L and upon repeat BMP at the ED, sodium level was 113 and patient is being admitted for evaluation and treatment. #1 Hypotonic, isovolumetric severe hyponatremia, may be from medication side effect: Patient has nonspecific symptoms of generalized weakness, loss of balance for few weeks. Nonspecific symptoms of seizure, focal weakness or loss of consciousness. On IV fluid normal saline. Baseline sodium level has been in the range of 130-140, admission sodium was 113. Patient denied recent change or adjustment to his medications. This is probably due to medications side effects. Patient is on Depakote, Trileptal, HCTZ and Lasix. Trileptal and Depakote can cause SIADH. Magnesium 1.6. Urine osmolarity 353 more than serum osmolality 235. Urine sodium 32, potassium 40 chloride 101. 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 Patient's hyponatremia was comanaged with the real estate administrator. Gradual improvement in sodium to 129. Patient is discharged on sodium tablets 1 g twice daily along with Lasix 20 mg twice daily. 2. Sinus arrhythmia with multiple PACs: Twelve-lead EKG shows sinus rhythm with PAC, QTC 430 ms. Patient denies history of A. fib or coronary artery disease. Patient on Actos and amlodipine. Actos discontinued. 2D echo was done because suggestive of mild chronic diastolic heart failure. Patient might have bilateral ankle edema secondary to amlodipine. Interpretation Summary Normal LV size. Left ventricular systolic function is normal. The estimated ejection fraction is 65 %. Stage 1 diastolic dysfunction. Aortic sclerosis, no stenosis. Mild focal aortic valve calcification. Pulmonary artery systolic pressure is 40 mmHg. 3 type 2 diabetes mellitus: Blood sugars 144. Hemoglobin A1c was 7.8% 2 months ago. Hold oral hypoglycemic agents. Glucose was controlled. Patient discharged on scheduled Lantus 10 units a.m. and 15 units at bedtime daily. Accu-Cheks before meals and at bedtime and cover with sliding scale. 4 hypertension: Blood pressure stable, continue Norvasc and lisinopril, initially Lasix was held later on resumed when started on sodium tablet. HCTZ discontinued. She was started on hydralazine for control of blood pressure. Discharged on hydralazine 25 mg p.o. twice daily. #Acute anemia, microcytic type chronic anemia: Patient hemoglobin dropped from 10.2/31-7.8/24. No obvious active bleeding. Stool for occult blood is negative. 200 mg IV iron sucrose given. Monitor H&H at 8 PM tonight. Lovenox DVT prophylaxis discontinued. Iron work-up shows high iron, TIBC low with iron saturation 85.1 and ferritin normal. Labs consistent with anemia of chronic disease. Reticulocyte count is high 1.84, suggestive of reactive bone marrow. Patient had 1 unit of PRBC transfusion and H&H improved from 7.3-7.9. Advised to follow-up with hematology as an outpatient. hypothyroidism: TSH 1.36 normal. Continue levothyroxine. #5 depression/bipolar disorder: On multiple antipsychotic medications including Seroquel, Risperdal, BuSpar. #6 GERD: Continue PPI. #7 hyperlipidemia: Continue statins. #8 DVT prophylaxis: Bilateral SCDs Discharge medication reconciliation done. Discharge follow-up instructions completed. Discharge process discussed with the patient and all questions were answered to patient's satisfaction. Patient is being discharged to SNF Total time spent, exact 35 minutes on discharge meds reconciliation, examination, coordination of care with nurses and ancillary staff, review of imaging and blood test and discussion with the patient on follow-up instructions Clinical Impression(s) from Imaging Studies Chest X-Ray 08/03/20 22:00 IMPRESSION: Normal x-ray examination of the chest. Renal Ultrasound 08/07/20 10:48 IMPRESSION: 1. No hydronephrosis to suggest obstruction. 2. Mild atrophy and cortical thinning of the left kidney possibly from chronic renal artery stenosis. Correlation with MRA or CTA may be useful. Microbiology Past 72 Hours 08/08/20 14:50 Stool Stool Occult Blood (SHIRA) - Final 08/06/20 23:45 Urine, Catheterized Urine Culture - Preliminary Culture exhibits no growth. 08/06/20 17:00 Urine, Catheterized Urine Culture - Preliminary Culture exhibits no growth. 08/06/20 14:30 Mucosa - Nasopharyngeal SARS-CoV-2 Antigen (Rapid) - Final Laboratory Results 08/07/20 21:23: POC Glucose 139 H 08/08/20 05:28: WBC 6.8, RBC 3.08 L, Hgb 7.8 L, Hct 23.9 L, MCV 77.6 L, MCH 25.3 L, MCHC 32.6, RDW Std Deviation 46.2 H, RDW Coeff of Celine 16.2 H, Plt Count 228, MPV 9.5, Immature Gran % (Auto) 0.400, Neut % (Auto) 65.4, Lymph % (Auto) 25.1, [place] % (Auto) 8.7, Eos % (Auto) 0.1, Baso % (Auto) 0.3, Absolute Neuts (auto) 4.4, Absolute Lymphs (auto) 1.70, Nucleated RBC % 0 08/08/20 05:28: Sodium 126 L, Potassium 4.3, Chloride 95 L, Carbon Dioxide 22.0, Anion Gap 9, BUN 40 H, Creatinine 1.14, Estim Creat Clear Calc 51.30, Est GFR (MDRD) Af Amer 81, Est GFR (MDRD) Non-Af 67, BUN/Creatinine Ratio 35.1 H, Glucose 106, Calcium 7.8 L 08/08/20 05:28: Serum Osmolality 269 L 08/08/20 05:30: Urine Osmolality 466, Ur Random Sodium < 5 08/08/20 06:48: POC Glucose 117 H 08/08/20 11:26: POC Glucose 175 H 08/08/20 16:58: POC Glucose 121 H Patient Problems: Active and Suspected Problems (This Medical Record has been edited. Action required.) Hyponatremia (Acute) Severe hyponatremia (Acute) Objective: Patient heart rate and blood pressure are controlled. Patient has chronic sinus arrhythmia with multiple PACs. Denies any hematemesis or melena. H&H is stable and improved after 1 unit of PRBC transfusion Physical exam Physical exam General: Alert, Oriented x3, Cooperative HEENT: Atraumatic, PERRLA, EOMI, Normocephalic Oral: No Gingival or Mucosal Lesions/ Ulcerations Neck: Supple, No JVD, Negative Carotid Bruits Lungs: Air entry diminished in bilateral lung bases. No crepitation/rhonchi Cardiovascular: Sinus rhythm with PACs and sinus arrhythmia normal S1, Normal S2, No murmurs Abdomen: Bowel Sounds Present, Soft, Non Tender, Non-Distended : No renal angle tenderness. No suprapubic tenderness. Extremities: Mild bilateral ankle edema, Capillary Refill Less than 3 Seconds Skin: No rashes, No breakdown Musculoskeletal: No Tenderness to Palpation of Joints or Extremities Neurological: Cranial nerves II-XII grossly intact, Deep Tendon Reflexes 2+/4 and Symmetrical, Neuro grossly intact Psych/Mental Status: Bipolar disorder. Anxiety and depression - Physical Exam Vitals/I&O's: Vital Signs Temp Pulse Resp BP Pulse Ox 98.9 F 94 18 138/62 H 98 08/10/20 09:00 08/10/20 09:10 08/10/20 09:00 08/10/20 09:10 08/10/20 09:00 Oxygen Delivery Method Room Air Weight: 229 lb 0.964 oz Body Mass Index (BMI) 36.9 Finger Stick Blood Glucose 106 Intake and Output for Last 24 Hours 08/08/20 08/09/20 08/10/20 23:59 23:59 23:59 Intake Total 2130.25 / 2130.25 910 / 910 100 / 100 Output Total 1220 / 1220 2500 / 2500 375 / 375 Balance 910.25 / 910.25 -1590 / -1590 -275 / -275 Microbiology Past 72 Hours 08/06/20 23:45 Urine, Catheterized Urine Culture - Final Culture exhibits no growth. 08/06/20 17:00 Urine, Catheterized Urine Culture - Final Culture exhibits no growth. 08/08/20 14:50 Stool Stool Occult Blood (SHIRA) - Final Laboratory Results 08/09/20 09:05: Blood Type A NEGATIVE, Antibody Screen NEGATIVE, Crossmatch See Detail 08/09/20 11:17: POC Glucose 176 H 08/09/20 16:58: POC Glucose 133 H 08/09/20 21:02: POC Glucose 147 H 08/10/20 06:00: WBC 7.0, RBC 3.02 L, Hgb 7.9 L, Hct 23.5 L, MCV 77.8 L, MCH 26.2 L, MCHC 33.6, RDW Std Deviation 46.0 H, RDW Coeff of Celine 16.3 H, Plt Count 253, MPV 9.3, Immature Gran % (Auto) 0.300, Neut % (Auto) 56.8, Lymph % (Auto) 31.5, [place] % (Auto) 9.0, Eos % (Auto) 2.0, Baso % (Auto) 0.4, Absolute Neuts (auto) 4.0, Absolute Lymphs (auto) 2.20, Nucleated RBC % 0 08/10/20 06:00: Sodium 129 L, Potassium 4.0, Chloride 97 L, Carbon Dioxide 24.0, Anion Gap 8, BUN 32 H, Creatinine 0.96, Estim Creat Clear Calc 60.92, Est GFR (MDRD) Af Amer 99, Est GFR (MDRD) Non-Af 82, BUN/Creatinine Ratio 33.5 H, Glucose 123 H, Calcium 7.9 L 08/10/20 06:27: POC Glucose 132 H Current Medications Acetaminophen (Acetaminophen 325 Mg Tablet) 650 mg PO Q6H PRN PRN PRN Reason: Pain Score 1-10/Temp > 100.7 F Last Admin: 08/07/20 03:11 Dose: 650 mg Documented by: Amlodipine Besylate (Amlodipine 5 Mg Tablet) 5 mg PO DAILY [facility] Last Admin: 08/10/20 09:15 Dose: 5 mg Documented by: Atorvastatin Calcium (Atorvastatin Calcium 40 Mg Tablet) 40 mg PO QHS [facility] Last Admin: 08/09/20 21:09 Dose: 40 mg Documented by: Buspirone HCl (Buspirone 15 Mg Tablet) 15 mg PO BID [facility] Last Admin: 08/10/20 09:11 Dose: 15 mg Documented by: Calamine/Phenol (Menthol/Lanolin/Calamine/Znox 113 Gm Tube) 1 applic TOPICAL BID PRN PRN; Protocol PRN Reason: RASH/TOPICAL IRRITATION Last Admin: 08/08/20 21:16 Dose: 1 applicatio Documented by: Cyanocobalamin (Cyanocobalamin 500 Mcg Tablet) 1,000 mcg PO DAILY@0800 [facility] Last Admin: 08/10/20 09:27 Dose: 1,000 mcg Documented by: Cyclobenzaprine HCl (Cyclobenzaprine Hcl 5 Mg Tablet) 5 mg PO Q6H PRN PRN PRN Reason: SPASMS Furosemide (Furosemide 20 Mg Tablet) 20 mg PO BID@1000,1800 [facility] Last Admin: 08/10/20 09:10 Dose: 20 mg Documented by: Hydralazine HCl (Hydralazine 20 Mg/Ml Vial) 10 mg IV Q4H PRN PRN PRN Reason: SBP more than 180 mmHg Hydralazine HCl (Hydralazine 25 Mg Tablet) 25 mg PO BID [facility] Last Admin: 08/10/20 09:10 Dose: 25 mg Documented by: Sodium Chloride () 250 mls @ 15 mls/hr IV .[id number] PRN PRN Reason: Saline Flush Last Infusion: 08/08/20 13:00 Dose: 0 mls/hr Documented by: Sodium Chloride () 250 mls @ 15 mls/hr IV .[id number] PRN PRN Reason: Additional IVPB Infusion Insulin Glargine (Insulin Glargine 100 Units/Ml Pen) 18 units SC QHS [facility] Last Admin: 08/09/20 21:10 Dose: 18 u Documented by: Insulin Glargine (Insulin Glargine 100 Units/Ml Pen) 10 units SC BREAKFAST [facility] Last Admin: 08/10/20 09:04 Dose: Not Given Documented by: Insulin Human Lispro (Insulin Lispro 100 Unit/Ml Insuln.Pen) 0 unit SC ACHS [facility]; Protocol Last Admin: 08/10/20 06:29 Dose: Not Given Documented by: Levothyroxine Sodium (Levothyroxine 50 Mcg Tablet) 50 mcg PO DAILY@0600 [facility] Last Admin: 08/10/20 06:29 Dose: 50 mcg Documented by: Melatonin (Melatonin 10 Mg Tablet) 10 mg PO QHS [facility] Last Admin: 08/09/20 21:08 Dose: 10 mg Documented by: Ondansetron HCl (Ondansetron 4 Mg/2 Ml Vial) 4 mg IV Q8H PRN PRN PRN Reason: NAUSEA/VOMITING Polyethylene Glycol (Polyethylene Glycol 3350 17 Gm Packet) 17 gm PO DAILY [facility] Last Admin: 08/10/20 09:13 Dose: 17 gm Documented by: Psyllium Hydrophilic Mucilloid (Psyllium 1 Packet) 1 packet PO BID [facility] Last Admin: 08/10/20 09:13 Dose: 1 packet Documented by: Quetiapine Fumarate (Quetiapine 100 Mg Tablet) 100 mg PO DAILY [facility] Last Admin: 08/10/20 09:09 Dose: 100 mg Documented by: Quetiapine Fumarate (Quetiapine 100 Mg Tablet) 300 mg PO QHS [facility] Last Admin: 08/09/20 21:11 Dose: 300 mg Documented by: Risperidone (Risperidone 1 Mg Tablet) 3 mg PO BID [facility] Last Admin: 08/10/20 09:13 Dose: 3 mg Documented by: Senna/Docusate Sodium (Senna/Docusate Sodium 1 Tablet) 2 tablet PO BID [facility] Last Admin: 08/10/20 09:09 Dose: 2 tablet Documented by: Sodium Chloride (0.9% Saline Lock 10 Ml Syringe) 10 - 40 ml IV UD PRN PRN Reason: SALINE FLUSH Last Admin: 08/08/20 14:18 Dose: 10 ml Documented by: Sodium Chloride (Sodium Chloride 1 Gm Tablet) 1 gm PO BID [facility] Last Admin: 08/10/20 09:09 Dose: 1 gm Documented by: Tamsulosin HCl (Tamsulosin Hcl 0.4 Mg Capsule) 0.4 mg PO DAILY [facility] Last Admin: 08/10/20 09:11 Dose: 0.4 mg Documented by: Discharge Activity: May Not Drive Weight Bearing Status: Weight bearing as tolerated Call your doctor if you observe: Fever of 101 or Higher, Coldness, Increased Pain, Numbness or Tingling, Change in Color, Inability to urinate, Inability to have a bowel movement, Shortness of breath, Dizziness, Fainting spells, Swelling in the ankles, Chest pain, Prolonged hiccoughing, Increased palpitations (irregular heartbeat), Calf discomfort, Uncontrolled pain Home Medications: Medications to take at Discharge Saxagliptin HCl [Onglyza] 5 mg PO DAILY 11/28/15 Omeprazole [Prilosec] 20 mg PO BID 06/04/16 Cholecalciferol (VIT D3) [Vitamin D3] 1,000 unit PO BID 11/08/18 Levothyroxine [Synthroid] 50 mcg PO DAILY 11/08/18 Melatonin 10 mg PO QHS 11/08/18 Quetiapine Fumarate [Seroquel] 100 mg PO DAILY 11/08/18 Quetiapine Fumarate [Seroquel] 300 mg PO QHS 11/08/18 cycloBENZAPRine HCl [Flexeril] 5 mg PO Q6H PRN PRN 11/08/18 Amlodipine [Norvasc] 5 mg PO DAILY 07/08/20 Atorvastatin Calcium 40 mg PO QHS 07/08/20 Guaifenesin [Robitussin] 10 mg PO Q4H PRN PRN 07/08/20 Insulin Lispro [Humalog] 100 unit SQ DAILY 07/08/20 Oxcarbazepine [Trileptal] 600 mg PO BID 07/08/20 Polyethylene Glycol 3350 [Miralax] 17 gm PO DAILY 07/08/20 Potassium 20 mg PO DAILY 07/08/20 Risperidone [Risperdal] 3 mg PO BID 07/08/20 Senna [Senokot] 2 tab PO DAILY 07/08/20 busPIRone [Buspar] 15 mg PO BID 07/08/20 Acetaminophen 1,000 mg PO Q4H PRN PRN 08/03/20 Bisacodyl 1 supp.rect RECTAL Q72H PRN 08/03/20 Carboxymethylcellulose Sodium [Artificial Tears] 1 drp OP BID PRN 08/03/20 Hydroxyzine Pamoate [Vistaril] 25 mg PO Q6H PRN PRN 08/03/20 Ibuprofen 400 mg PO Q6H PRN 08/03/20 Cyanocobalamin [Vitamin B12] 1,000 mcg PO DAILY@0800 #30 tab 08/10/20 Furosemide [Lasix] 20 mg PO BID@1000,1800 tab 08/10/20 Insulin Glargine [Lantus SoloStar Pen] 10 units SC BREAKFAST #1 ml 08/10/20 Insulin Glargine,Hum.rec.anlog [Lantus] 15 unit SQ QHS #0 08/10/20 Sodium Chloride 1 gm PO BID tab 08/10/20 Tamsulosin HCl [Flomax] 0.4 mg PO DAILY #30 cap 08/10/20 hydrALAZINE [Apresoline] 25 mg PO BID #60 tab 08/10/20 Following Prescriptions Were Given to Patient: hydrALAZINE [Apresoline] 25 mg PO BID #60 tab Tamsulosin HCl [Flomax] 0.4 mg PO DAILY #30 cap Insulin Glargine [Lantus SoloStar Pen] 10 units SC BREAKFAST #1 ml Cyanocobalamin [Vitamin B12] 1,000 mcg PO DAILY@0800 #30 tab Primary Care Physician: Parviz Acevedo MD [Primary Care Provider] - Please follow up with your Primary Care Physician in: in 2 weeks Please Follow Up With: Eliud Almaguer MD When: in 2-4 weeks Please Follow Up With: Tyson Melara MD When: on 08/12/2019 with Saleem catheter Medical Necessity - Tobacco Use Smoking Status: Never smoker Meaningful Use Info Meaningful Use Diagnoses (Choose all that apply): None applicable Inpatient E&M: 76521 Disch Hosp
[2020-08-10] MEDS: Insulin Lispro 100 UNIT/ML INSULN.PEN SC (11:53)
[2020-08-10 12:01] LABS: Bedside Glucose 165 mg/dL (70-110)
== END 2020-08-10 14:10 | disposition skilled nursing facility (03) | DRG 644 ==
LOC: ED 20:31 → PCU 20:53
PROVIDERS: Family Medicine; Internal Medicine; Internal Medicine Nephrology; Admitting Provider Hospitalist; Emergency Provider Emergency Medicine; PCP Family Medicine; Visit Provider Internal Medicine
DX: E22.2 Syndrome of inappropriate secretion of antidiuretic hormone (principal); I50.32 Chronic diastolic (congestive) heart failure; I11.0 Hypertensive heart disease with heart failure; T39.395A Adverse effect of other nonsteroidal anti-inflammatory drugs [NSAID], initial encounter; T43.595A Adverse effect of other antipsychotics and neuroleptics, initial encounter; I49.1 Atrial premature depolarization; E11.9 Type 2 diabetes mellitus without complications; E78.00 Pure hypercholesterolemia, unspecified; E03.9 Hypothyroidism, unspecified; D50.9 Iron deficiency anemia, unspecified; D63.8 Anemia in other chronic diseases classified elsewhere; K21.9 Gastro-esophageal reflux disease without esophagitis; F31.9 Bipolar disorder, unspecified; R33.9 Retention of urine, unspecified; Z79.4 Long term (current) use of insulin; Z79.890 Hormone replacement therapy; Z79.899 Other long term (current) drug therapy
CPT/HCPCS: 36415; 71045; 76770; 80048; 80053; 80076; 80164; 81001; 82274; 82340; 82436; 82542; 82570; 82607; 82728; 82746; 82962; 83540; 83550; 83735; 83880; 83930; 83935; 84133; 84295; 84300; 84443; 85014; 85018; 85025; 85027; 85045; 86850; 86900; 86901; 86920; 86922; 87086; 87426; 93005; 93306; 97110; 97116; 97162; 97165; 97530; 97535; 97802; 97803; 99251; 99285; J7030; J7040; J7050; P9016; Q9957; A4216; G0463; J2916

== ENCOUNTER → 2020-08-26 04:00 | Outpatient (REF) | payer MEDICARE, MEDICAID, SELFPAY ==
[2020-08-03 21:37] VITALS: BMI 36.9
[2020-08-26 07:25] LABS: Hematocrit 26.6 % (40-54); Hemoglobin 8.1 g/dL (13.0-16.5); Mean Corp Hgb Conc 30.5 g/dL (32-36); Mean Corpuscular Hgb 25.6 pg (27.0-32.0); Mean Corpuscular Volume 84.2 fL (80-94); Mean Platelet Vol. 9.4 fl (6.2-12.0); Platelet Count 497 K/mm3 (150-450); RBC Distribution Width CV 18.3 % (11.6-14.6); RBC Distribution Width SD 56.3 fl (35.1-43.9); Red Blood Count 3.16 M/mm3 (4.6-6.2)
[2020-08-26 07:46] LABS: Anion Gap 5 (5-15); BUN 23 mg/dL (7-18); BUN/Creat Ratio 21.5 RATIO (10-20); Calcium,Total 8.1 mg/dL (8.5-10.1); Chloride 102 mmol/L (98-107); Creatinine, Serum 1.07 mg/dL (0.70-1.30); EST Glomerular Filtration Rate 72 mL/min (>60); Est Glom Filt Rate - Afr Amer 87 mL/min (>60); Glucose 88 mg/dL (74-106); Potassium 3.2 mmol/L (3.5-5.1); Sodium Level 138 mmol/L (136-145)
[2020-08-27 10:58] LABS: Carcinoembryonic Antigen 3.5 ng/mL (0.0-4.7)
== END ==
LOC: OLS.WCC 04:00
PROVIDERS: PCP Family Medicine; Referring Provider Family Medicine; Visit Provider Family Medicine
DX: I11.0 Hypertensive heart disease with heart failure (principal); E11.22 Type 2 diabetes mellitus with diabetic chronic kidney disease; I50.9 Heart failure, unspecified
CPT/HCPCS: 36415; 80048; 82378; 85027

== ENCOUNTER → 2020-09-10 05:00 | Outpatient (REF) | payer MEDICARE, MEDICAID, SELFPAY ==
[2020-08-03 21:37] VITALS: BMI 36.9
[2020-09-10 08:14] LABS: Hematocrit 30.6 % (40-54); Hemoglobin 9.2 g/dL (13.0-16.5); Mean Corp Hgb Conc 30.1 g/dL (32-36); Mean Corpuscular Hgb 24.9 pg (27.0-32.0); Mean Corpuscular Volume 82.7 fL (80-94); Mean Platelet Vol. 9.8 fl (6.2-12.0); Platelet Count 307 K/mm3 (150-450); RBC Distribution Width CV 17.7 % (11.6-14.6); RBC Distribution Width SD 53.8 fl (35.1-43.9)
[2020-09-10 08:26] LABS: Anion Gap 9 (5-15); BUN 24 mg/dL (7-18); BUN/Creat Ratio 21.1 RATIO (10-20); Calcium,Total 8.2 mg/dL (8.5-10.1); Chloride 100 mmol/L (98-107); Creatinine, Serum 1.14 mg/dL (0.70-1.30); EST Glomerular Filtration Rate 67 mL/min (>60); Est Glom Filt Rate - Afr Amer 81 mL/min (>60); Glucose 81 mg/dL (74-106); Potassium 3.4 mmol/L (3.5-5.1); Sodium Level 138 mmol/L (136-145)
== END ==
LOC: OLS.WCC 05:00
PROVIDERS: PCP Family Medicine; Visit Provider Family Medicine
DX: E11.9 Type 2 diabetes mellitus without complications (principal); I10 Essential (primary) hypertension; Z79.899 Other long term (current) drug therapy
CPT/HCPCS: 36415; 80048; 85027

== ENCOUNTER → 2020-10-18 06:10 | Outpatient (REF) | payer MEDICARE, MEDICAID, SELFPAY ==
[2020-08-03 21:37] VITALS: BMI 36.9
[2020-10-18 09:31] LABS: Hematocrit 30.3 % (40-54); Hemoglobin 9.7 g/dL (13.0-16.5); Mean Corpuscular Hgb 25.3 pg (27.0-32.0); Mean Corpuscular Volume 78.9 fL (80-94); Mean Platelet Vol. 10.2 fl (6.2-12.0); Platelet Count 308 K/mm3 (150-450); RBC Distribution Width CV 16.6 % (11.6-14.6); RBC Distribution Width SD 46.8 fl (35.1-43.9); Red Blood Count 3.84 M/mm3 (4.6-6.2)
[2020-10-18 09:51] LABS: Anion Gap 7 (5-15); BUN 17 mg/dL (7-18); BUN/Creat Ratio 18.4 RATIO (10-20); Calcium,Total 8.2 mg/dL (8.5-10.1); Chloride 89 mmol/L (98-107); Creatinine, Serum 0.92 mg/dL (0.70-1.30); EST Glomerular Filtration Rate 85 mL/min (>60); Est Glom Filt Rate - Afr Amer 103 mL/min (>60); Glucose 78 mg/dL (74-106); Potassium 3.9 mmol/L (3.5-5.1); Sodium Level 126 mmol/L (136-145)
== END ==
LOC: OLS.WCC 06:10
PROVIDERS: PCP Family Medicine; Visit Provider Family Medicine
DX: E11.9 Type 2 diabetes mellitus without complications (principal); I10 Essential (primary) hypertension
CPT/HCPCS: 36415; 80048; 85027

== ENCOUNTER → 2020-11-18 04:00 | Outpatient (REF) | payer MEDICARE, MEDICAID, SELFPAY ==
[2020-08-03 21:37] VITALS: BMI 36.9
[2020-11-18 06:55] LABS: Hematocrit 29.2 % (40-54); Hemoglobin 9.4 g/dL (13.0-16.5); Mean Corp Hgb Conc 32.2 g/dL (32-36); Mean Corpuscular Hgb 25.1 pg (27.0-32.0); Mean Corpuscular Volume 78.1 fL (80-94); Mean Platelet Vol. 10.7 fl (6.2-12.0); Platelet Count 237 K/mm3 (150-450); RBC Distribution Width CV 16.7 % (11.6-14.6); RBC Distribution Width SD 47.9 fl (35.1-43.9); Red Blood Count 3.74 M/mm3 (4.6-6.2); White Blood Count 5.7 K/mm3 (4.4-11.0)
[2020-11-18 07:38] LABS: Anion Gap 4 (5-15); BUN 15 mg/dL (7-18); BUN/Creat Ratio 17.4 RATIO (10-20); Calcium,Total 8.1 mg/dL (8.5-10.1); Chloride 89 mmol/L (98-107); Cholesterol 98 mg/dL (200); Creatinine, Serum 0.86 mg/dL (0.70-1.30); EST Glomerular Filtration Rate 92 mL/min (>60); Est Glom Filt Rate - Afr Amer 111 mL/min (>60); Glucose 69 mg/dL (74-106); High Density Lipoprotein 48 mg/dL; Potassium 3.9 mmol/L (3.5-5.1); Sodium Level 124 mmol/L (136-145); Thyroid Stim Hormone (TSH) 1.45 uIU/mL (0.358-3.74); Triglycerides 56 mg/dL; Very Low Density Lipoprotein 11 mg/dL (5-40)
[2020-11-18 09:16] LABS: Hemoglobin A1c 6.2 % (3.8-5.6)
== END ==
LOC: OLS.WCC 04:00
PROVIDERS: PCP Family Medicine; Visit Provider Family Medicine
DX: E11.9 Type 2 diabetes mellitus without complications (principal); I10 Essential (primary) hypertension; E78.5 Hyperlipidemia, unspecified; E03.9 Hypothyroidism, unspecified; Z79.899 Other long term (current) drug therapy
CPT/HCPCS: 36415; 80048; 80061; 83036; 84443; 85027

== ENCOUNTER → 2020-11-22 05:55 | Outpatient (REF) | payer MEDICARE, MEDICAID, SELFPAY ==
[2020-08-03 21:37] VITALS: BMI 36.9
[2020-11-22 08:30] LABS: Albumin, Serum 2.8 g/dL (3.2-5.0); BUN 15 mg/dL (7-18); BUN/Creat Ratio 17.9 RATIO (10-20); Creatinine, Serum 0.84 mg/dL (0.70-1.30); EST Glomerular Filtration Rate 95 mL/min (>60); Est Glom Filt Rate - Afr Amer 115 mL/min (>60); Glucose 76 mg/dL (74-106); Protein, Total 5.8 g/dL (6.4-8.2)
[2020-11-22 08:31] LABS: ALB/GLOB Ratio 0.9 RATIO (0.9-2.4); AST(SGOT) 8 U/L (15-37); Alanine Aminotransfer ALT/SGPT 15 U/L (16-61); Alkaline Phosphatase 135 U/L (45-117); Anion Gap 4 (5-15); Calcium,Total 8.2 mg/dL (8.5-10.1); Chloride 94 mmol/L (98-107); Potassium 4.1 mmol/L (3.5-5.1); Sodium Level 128 mmol/L (136-145)
== END ==
LOC: OLS.WCC 05:55
PROVIDERS: PCP Family Medicine; Visit Provider Family Medicine
DX: E11.9 Type 2 diabetes mellitus without complications (principal); I10 Essential (primary) hypertension; E78.5 Hyperlipidemia, unspecified; E03.9 Hypothyroidism, unspecified; Z79.899 Other long term (current) drug therapy
CPT/HCPCS: 36415; 80053

== ENCOUNTER → 2020-12-04 06:35 | Outpatient (REF) | payer MEDICARE, MEDICAID, SELFPAY ==
[2020-08-03 21:37] VITALS: BMI 36.9
[2020-12-04 08:12] LABS: Hematocrit 31.5 % (40-54); Hemoglobin 9.8 g/dL (13.0-16.5); Mean Corp Hgb Conc 31.1 g/dL (32-36); Mean Corpuscular Hgb 25.3 pg (27.0-32.0); Mean Corpuscular Volume 81.4 fL (80-94); Mean Platelet Vol. 10.8 fl (6.2-12.0); Platelet Count 248 K/mm3 (150-450); RBC Distribution Width SD 53.6 fl (35.1-43.9); Red Blood Count 3.87 M/mm3 (4.6-6.2); White Blood Count 6.6 K/mm3 (4.4-11.0)
[2020-12-04 08:35] LABS: Anion Gap 4 (5-15); BUN 21 mg/dL (7-18); BUN/Creat Ratio 21.8 RATIO (10-20); Calcium,Total 8.3 mg/dL (8.5-10.1); Chloride 97 mmol/L (98-107); Creatinine, Serum 0.96 mg/dL (0.70-1.30); EST Glomerular Filtration Rate 81 mL/min (>60); Est Glom Filt Rate - Afr Amer 98 mL/min (>60); Glucose 68 mg/dL (74-106); Potassium 3.4 mmol/L (3.5-5.1); Sodium Level 134 mmol/L (136-145); Thyroid Stim Hormone (TSH) 2.28 uIU/mL (0.358-3.74)
== END ==
LOC: OLS.WCC 06:35
PROVIDERS: Referring Provider Family Medicine; Visit Provider Family Medicine
DX: E11.9 Type 2 diabetes mellitus without complications (principal); I10 Essential (primary) hypertension; E78.5 Hyperlipidemia, unspecified; E03.9 Hypothyroidism, unspecified; Z79.899 Other long term (current) drug therapy
CPT/HCPCS: 36415; 80048; 84443; 85027

== ENCOUNTER → 2020-12-19 05:00 | Outpatient (REF) | payer MEDICARE, MEDICAID, SELFPAY ==
[2020-08-03 21:37] VITALS: BMI 36.9
[2020-12-19 08:18] LABS: Anion Gap 4 (5-15); BUN 21 mg/dL (7-18); BUN/Creat Ratio 19.8 RATIO (10-20); Calcium,Total 8.4 mg/dL (8.5-10.1); Chloride 101 mmol/L (98-107); Creatinine, Serum 1.06 mg/dL (0.70-1.30); EST Glomerular Filtration Rate 72 mL/min (>60); Est Glom Filt Rate - Afr Amer 88 mL/min (>60); Glucose 83 mg/dL (74-106); Potassium 3.7 mmol/L (3.5-5.1); Sodium Level 136 mmol/L (136-145)
== END ==
LOC: OLS.WCC 05:00
PROVIDERS: Referring Provider Family Medicine; Visit Provider Family Medicine
DX: I11.0 Hypertensive heart disease with heart failure (principal); I50.30 Unspecified diastolic (congestive) heart failure
CPT/HCPCS: 36415; 80048

== ENCOUNTER → 2021-01-02 05:00 | Outpatient (REF) | payer MEDICARE, MEDICAID, SELFPAY ==
[2020-08-03 21:37] VITALS: BMI 36.9
[2021-01-02 08:41] LABS: Hematocrit 31.5 % (40-54); Hemoglobin 9.9 g/dL (13.0-16.5); Mean Corp Hgb Conc 31.4 g/dL (32-36); Mean Corpuscular Hgb 26.3 pg (27.0-32.0); Mean Corpuscular Volume 83.8 fL (80-94); Mean Platelet Vol. 11.6 fl (6.2-12.0); Platelet Count 195 K/mm3 (150-450); RBC Distribution Width CV 18.3 % (11.6-14.6); RBC Distribution Width SD 55.5 fl (35.1-43.9); Red Blood Count 3.76 M/mm3 (4.6-6.2)
[2021-01-02 08:52] LABS: Anion Gap 5 (5-15); BUN 19 mg/dL (7-18); BUN/Creat Ratio 19.4 RATIO (10-20); Calcium,Total 8.1 mg/dL (8.5-10.1); Chloride 99 mmol/L (98-107); Creatinine, Serum 0.98 mg/dL (0.70-1.30); EST Glomerular Filtration Rate 79 mL/min (>60); Est Glom Filt Rate - Afr Amer 96 mL/min (>60); Glucose 119 mg/dL (74-106); Potassium 3.7 mmol/L (3.5-5.1); Sodium Level 135 mmol/L (136-145)
== END ==
LOC: OLS.WCC 05:00
PROVIDERS: Visit Provider Family Medicine
DX: I11.0 Hypertensive heart disease with heart failure (principal); I50.9 Heart failure, unspecified; E11.9 Type 2 diabetes mellitus without complications; Z79.899 Other long term (current) drug therapy
CPT/HCPCS: 36415; 80048; 85027

== ENCOUNTER → 2021-01-16 05:00 | Outpatient (REF) | payer MEDICARE, MEDICAID, SELFPAY ==
[2020-08-03 21:37] VITALS: BMI 36.9
[2021-01-16 08:19] LABS: Anion Gap 6 (5-15); BUN 16 mg/dL (7-18); BUN/Creat Ratio 16.2 RATIO (10-20); Calcium,Total 8.2 mg/dL (8.5-10.1); Chloride 99 mmol/L (98-107); Creatinine, Serum 0.99 mg/dL (0.70-1.30); EST Glomerular Filtration Rate 78 mL/min (>60); Est Glom Filt Rate - Afr Amer 95 mL/min (>60); Glucose 81 mg/dL (74-106); Potassium 3.4 mmol/L (3.5-5.1); Sodium Level 137 mmol/L (136-145)
== END ==
LOC: OLS.WCC 05:00
PROVIDERS: Visit Provider Family Medicine
DX: N40.0 Benign prostatic hyperplasia without lower urinary tract symptoms (principal); I10 Essential (primary) hypertension; Z79.899 Other long term (current) drug therapy
CPT/HCPCS: 36415; 80048

== ENCOUNTER → 2021-01-29 05:00 | Outpatient (REF) | payer MEDICARE, MEDICAID, SELFPAY ==
[2020-08-03 21:37] VITALS: BMI 36.9
[2021-01-29 08:37] LABS: Hematocrit 33.3 % (40-54); Hemoglobin 10.7 g/dL (13.0-16.5); Mean Corp Hgb Conc 32.1 g/dL (32-36); Mean Corpuscular Hgb 27.6 pg (27.0-32.0); Mean Platelet Vol. 11.2 fl (6.2-12.0); Platelet Count 233 K/mm3 (150-450); RBC Distribution Width SD 53.3 fl (35.1-43.9); Red Blood Count 3.87 M/mm3 (4.6-6.2); White Blood Count 6.9 K/mm3 (4.4-11.0)
[2021-01-29 09:04] LABS: Anion Gap 4 (5-15); BUN 20 mg/dL (7-18); Calcium,Total 8.4 mg/dL (8.5-10.1); Chloride 98 mmol/L (98-107); Creatinine, Serum 1.05 mg/dL (0.70-1.30); EST Glomerular Filtration Rate 73 mL/min (>60); Est Glom Filt Rate - Afr Amer 89 mL/min (>60); Glucose 66 mg/dL (74-106); Potassium 3.1 mmol/L (3.5-5.1); Sodium Level 135 mmol/L (136-145)
== END ==
LOC: OLS.WCC 05:00
PROVIDERS: Referring Provider Family Medicine; Visit Provider Family Medicine
DX: N40.0 Benign prostatic hyperplasia without lower urinary tract symptoms (principal); I10 Essential (primary) hypertension; Z79.899 Other long term (current) drug therapy
CPT/HCPCS: 36415; 80048; 85027

== ENCOUNTER → 2021-02-03 05:00 | Outpatient (REF) | payer MEDICARE, MEDICAID, SELFPAY ==
[2020-08-03 21:37] VITALS: BMI 36.9
[2021-02-03 07:58] LABS: Hematocrit 32.4 % (40-54); Hemoglobin 10.2 g/dL (13.0-16.5); Mean Corp Hgb Conc 31.5 g/dL (32-36); Mean Corpuscular Hgb 27.3 pg (27.0-32.0); Mean Corpuscular Volume 86.6 fL (80-94); Platelet Count 228 K/mm3 (150-450); RBC Distribution Width CV 16.2 % (11.6-14.6); RBC Distribution Width SD 51.5 fl (35.1-43.9); Red Blood Count 3.74 M/mm3 (4.6-6.2); White Blood Count 6.9 K/mm3 (4.4-11.0)
== END ==
LOC: OLS.WCC 05:00
PROVIDERS: Visit Provider Family Medicine
DX: E11.9 Type 2 diabetes mellitus without complications (principal); Z79.899 Other long term (current) drug therapy
CPT/HCPCS: 36415; 85027

== ENCOUNTER → 2021-02-12 05:00 | Outpatient (REF) | payer MEDICARE, MEDICAID, SELFPAY ==
[2020-08-03 21:37] VITALS: BMI 36.9
[2021-02-12 08:42] LABS: Potassium 3.7 mmol/L (3.5-5.1)
== END ==
LOC: OLS.WCC 05:00
PROVIDERS: Visit Provider Family Medicine
DX: E87.6 Hypokalemia (principal)
CPT/HCPCS: 36415; 84132

== ENCOUNTER → 2021-03-03 05:00 | Outpatient (REF) | payer MEDICARE, MEDICAID, SELFPAY ==
[2020-08-03 21:37] VITALS: BMI 36.9
[2021-03-03 08:34] LABS: Hematocrit 33.8 % (40-54); Mean Corp Hgb Conc 32.5 g/dL (32-36); Mean Corpuscular Hgb 28.6 pg (27.0-32.0); Mean Corpuscular Volume 87.8 fL (80-94); Platelet Count 200 K/mm3 (150-450); RBC Distribution Width CV 14.3 % (11.6-14.6); RBC Distribution Width SD 45.7 fl (35.1-43.9); Red Blood Count 3.85 M/mm3 (4.6-6.2)
[2021-03-03 08:58] LABS: Anion Gap 5 (5-15); BUN 17 mg/dL (7-18); BUN/Creat Ratio 18.2 RATIO (10-20); Calcium,Total 8.1 mg/dL (8.5-10.1); Chloride 96 mmol/L (98-107); Creatinine, Serum 0.93 mg/dL (0.70-1.30); EST Glomerular Filtration Rate 84 mL/min (>60); Est Glom Filt Rate - Afr Amer 102 mL/min (>60); Glucose 79 mg/dL (74-106); Potassium 3.6 mmol/L (3.5-5.1); Sodium Level 132 mmol/L (136-145)
== END ==
LOC: OLS.WCC 05:00
PROVIDERS: Visit Provider Family Medicine
DX: N40.0 Benign prostatic hyperplasia without lower urinary tract symptoms (principal); I10 Essential (primary) hypertension; Z79.899 Other long term (current) drug therapy
CPT/HCPCS: 36415; 80048; 85027

== ENCOUNTER → 2021-04-03 05:00 | Outpatient (REF) | payer MEDICARE, MEDICAID, SELFPAY ==
[2021-04-03 08:25] LABS: Hematocrit 35.2 % (40-54); Hemoglobin 11.6 g/dL (13.0-16.5); Mean Corpuscular Hgb 28.5 pg (27.0-32.0); Mean Corpuscular Volume 86.5 fL (80-94); Mean Platelet Vol. 11.8 fl (6.2-12.0); Platelet Count 205 K/mm3 (150-450); RBC Distribution Width CV 13.2 % (11.6-14.6); RBC Distribution Width SD 41.9 fl (35.1-43.9); Red Blood Count 4.07 M/mm3 (4.6-6.2); White Blood Count 7.2 K/mm3 (4.4-11.0)
[2021-04-03 09:12] LABS: Anion Gap 4 (5-15); BUN 18 mg/dL (7-18); BUN/Creat Ratio 19.9 RATIO (10-20); Calcium,Total 8.2 mg/dL (8.5-10.1); Chloride 98 mmol/L (98-107); EST Glomerular Filtration Rate 87 mL/min (>60); Est Glom Filt Rate - Afr Amer 105 mL/min (>60); Glucose 66 mg/dL (74-106); Potassium 3.5 mmol/L (3.5-5.1); Sodium Level 131 mmol/L (136-145)
== END ==
LOC: OLS.WCC 05:00
PROVIDERS: PCP Family Medicine; Visit Provider Family Medicine
DX: E11.9 Type 2 diabetes mellitus without complications (principal); I11.0 Hypertensive heart disease with heart failure; I50.9 Heart failure, unspecified; R53.83 Other fatigue; Z79.899 Other long term (current) drug therapy
CPT/HCPCS: 36415; 80048; 85027

== ENCOUNTER → 2021-05-05 05:00 | Outpatient (REF) | payer MEDICARE, MEDICAID, SELFPAY ==
[2021-05-05 06:54] LABS: Hematocrit 38.3 % (40-54); Hemoglobin 12.6 g/dL (13.0-16.5); Mean Corp Hgb Conc 32.9 g/dL (32-36); Mean Corpuscular Hgb 27.9 pg (27.0-32.0); Mean Corpuscular Volume 84.7 fL (80-94); Mean Platelet Vol. 11.5 fl (6.2-12.0); Platelet Count 262 K/mm3 (150-450); RBC Distribution Width CV 14.3 % (11.6-14.6); RBC Distribution Width SD 43.8 fl (35.1-43.9); Red Blood Count 4.52 M/mm3 (4.6-6.2); White Blood Count 11.5 K/mm3 (4.4-11.0)
[2021-05-05 07:05] LABS: Anion Gap 6 (5-15); BUN 32 mg/dL (7-18); BUN/Creat Ratio 28.6 RATIO (10-20); Calcium,Total 8.3 mg/dL (8.5-10.1); Chloride 94 mmol/L (98-107); Creatinine, Serum 1.12 mg/dL (0.70-1.30); EST Glomerular Filtration Rate 68 mL/min (>60); Est Glom Filt Rate - Afr Amer 82 mL/min (>60); Glucose 78 mg/dL (74-106); Potassium 3.9 mmol/L (3.5-5.1); Sodium Level 129 mmol/L (136-145)
== END ==
LOC: OLS.WCC 05:00
PROVIDERS: PCP Family Medicine; Visit Provider Family Medicine
DX: I11.0 Hypertensive heart disease with heart failure (principal); I50.9 Heart failure, unspecified; E11.9 Type 2 diabetes mellitus without complications; E78.5 Hyperlipidemia, unspecified; Z79.899 Other long term (current) drug therapy
CPT/HCPCS: 36415; 80048; 85027

== ENCOUNTER → 2021-06-03 05:00 | Outpatient (REF) | payer MEDICARE, MEDICAID, SELFPAY ==
[2021-06-03 08:55] LABS: Hemoglobin 11.7 g/dL (13.0-16.5); Mean Corp Hgb Conc 32.5 g/dL (32-36); Mean Corpuscular Hgb 28.4 pg (27.0-32.0); Mean Corpuscular Volume 87.4 fL (80-94); Mean Platelet Vol. 11.2 fl (6.2-12.0); Platelet Count 213 K/mm3 (150-450); RBC Distribution Width CV 15.8 % (11.6-14.6); RBC Distribution Width SD 50.8 fl (35.1-43.9); Red Blood Count 4.12 M/mm3 (4.6-6.2); White Blood Count 7.3 K/mm3 (4.4-11.0)
[2021-06-03 09:06] LABS: Urine Sodium 43 mmol/L (Not Establ.)
[2021-06-03 09:18] LABS: Osmolality, Urine 377 mOsm/KG
[2021-06-03 09:20] LABS: Anion Gap 6 (5-15); BUN 14 mg/dL (7-18); BUN/Creat Ratio 14.7 RATIO (10-20); Chloride 97 mmol/L (98-107); Cholesterol 105 mg/dL (200); Creatinine, Serum 0.96 mg/dL (0.70-1.30); EST Glomerular Filtration Rate 82 mL/min (>60); Est Glom Filt Rate - Afr Amer 99 mL/min (>60); Glucose 82 mg/dL (74-106); High Density Lipoprotein 45 mg/dL; Potassium 3.5 mmol/L (3.5-5.1); Sodium Level 135 mmol/L (136-145); Thyroid Stim Hormone (TSH) 1.66 uIU/mL (0.358-3.74); Triglycerides 42 mg/dL; Very Low Density Lipoprotein 8 mg/dL (5-40)
[2021-06-03 09:25] LABS: Hemoglobin A1c 6.3 % (3.8-5.6)
== END ==
LOC: OLS.WCC 05:00
PROVIDERS: PCP Family Medicine; Visit Provider Family Medicine
DX: E11.9 Type 2 diabetes mellitus without complications (principal); E03.9 Hypothyroidism, unspecified; E78.00 Pure hypercholesterolemia, unspecified; E22.2 Syndrome of inappropriate secretion of antidiuretic hormone; R33.9 Retention of urine, unspecified; N31.9 Neuromuscular dysfunction of bladder, unspecified
CPT/HCPCS: 36415; 80048; 80061; 83036; 83935; 84300; 84443; 85027

== ENCOUNTER → 2021-07-04 04:00 | Outpatient (REF) | payer MEDICARE, MEDICAID, SELFPAY ==
[2021-07-04 06:23] LABS: Hematocrit 34.1 % (40-54); Hemoglobin 11.6 g/dL (13.0-16.5); Mean Corpuscular Hgb 29.9 pg (27.0-32.0); Mean Corpuscular Volume 87.9 fL (80-94); Mean Platelet Vol. 10.5 fl (6.2-12.0); Platelet Count 287 K/mm3 (150-450); RBC Distribution Width CV 14.5 % (11.6-14.6); Red Blood Count 3.88 M/mm3 (4.6-6.2)
== END ==
LOC: OLS.WCC 04:00
PROVIDERS: PCP Family Medicine; Visit Provider Family Medicine
DX: I11.0 Hypertensive heart disease with heart failure (principal); I50.9 Heart failure, unspecified; E11.9 Type 2 diabetes mellitus without complications; Z79.899 Other long term (current) drug therapy
CPT/HCPCS: 36415; 85027

== ENCOUNTER → 2021-07-08 05:00 | Outpatient (REF) | payer MEDICARE, MEDICAID, SELFPAY ==
[2021-07-08 08:36] LABS: Anion Gap 5 (5-15); BUN 10 mg/dL (7-18); BUN/Creat Ratio 9.6 RATIO (10-20); Calcium,Total 8.2 mg/dL (8.5-10.1); Chloride 99 mmol/L (98-107); Creatinine, Serum 1.04 mg/dL (0.70-1.30); EST Glomerular Filtration Rate 74 mL/min (>60); Est Glom Filt Rate - Afr Amer 89 mL/min (>60); Glucose 62 mg/dL (74-106); Potassium 3.2 mmol/L (3.5-5.1); Sodium Level 135 mmol/L (136-145)
== END ==
LOC: OLS.WCC 05:00
PROVIDERS: PCP Family Medicine; Visit Provider Family Medicine
DX: I11.0 Hypertensive heart disease with heart failure (principal); I50.9 Heart failure, unspecified; E11.9 Type 2 diabetes mellitus without complications; Z79.899 Other long term (current) drug therapy
CPT/HCPCS: 36415; 80048

== ENCOUNTER → 2021-07-10 05:00 | Outpatient (REF) | payer MEDICARE, MEDICAID, SELFPAY ==
[2021-07-10 07:57] LABS: Urine Sodium 36 mmol/L (Not Establ.)
[2021-07-10 08:02] LABS: Anion Gap 6 (5-15); BUN 13 mg/dL (7-18); Calcium,Total 7.9 mg/dL (8.5-10.1); Chloride 99 mmol/L (98-107); Creatinine, Serum 1.18 mg/dL (0.70-1.30); EST Glomerular Filtration Rate 64 mL/min (>60); Est Glom Filt Rate - Afr Amer 77 mL/min (>60); Glucose 86 mg/dL (74-106); Potassium 3.4 mmol/L (3.5-5.1); Sodium Level 136 mmol/L (136-145)
[2021-07-10 08:11] LABS: Osmolality, Urine 230 mOsm/KG
== END ==
LOC: OLS.WCC 05:00
PROVIDERS: PCP Family Medicine; Visit Provider Family Medicine
DX: E11.9 Type 2 diabetes mellitus without complications (principal); E05.90 Thyrotoxicosis, unspecified without thyrotoxic crisis or storm; E22.2 Syndrome of inappropriate secretion of antidiuretic hormone; N31.9 Neuromuscular dysfunction of bladder, unspecified; R33.9 Retention of urine, unspecified; E03.9 Hypothyroidism, unspecified
CPT/HCPCS: 36415; 80048; 83935; 84300

== ENCOUNTER → 2021-07-29 05:00 | Outpatient (REF) | payer MEDICARE, MEDICAID, SELFPAY ==
[2021-07-29 08:58] LABS: Hematocrit 34.2 % (40-54); Hemoglobin 11.1 g/dL (13.0-16.5); Mean Corp Hgb Conc 32.5 g/dL (32-36); Mean Corpuscular Hgb 29.4 pg (27.0-32.0); Mean Corpuscular Volume 90.5 fL (80-94); Mean Platelet Vol. 11.6 fl (6.2-12.0); Platelet Count 221 K/mm3 (150-450); RBC Distribution Width CV 14.2 % (11.6-14.6); RBC Distribution Width SD 47.4 fl (35.1-43.9); Red Blood Count 3.78 M/mm3 (4.6-6.2); White Blood Count 9.8 K/mm3 (4.4-11.0)
[2021-07-29 09:10] LABS: Anion Gap 5 (5-15); BUN 13 mg/dL (7-18); BUN/Creat Ratio 11.1 RATIO (10-20); Calcium,Total 8.1 mg/dL (8.5-10.1); Chloride 103 mmol/L (98-107); Creatinine, Serum 1.17 mg/dL (0.70-1.30); EST Glomerular Filtration Rate 64 mL/min (>60); Est Glom Filt Rate - Afr Amer 78 mL/min (>60); Glucose 116 mg/dL (74-106); Potassium 3.7 mmol/L (3.5-5.1); Sodium Level 138 mmol/L (136-145)
== END ==
LOC: OLS.WCC 05:00
PROVIDERS: PCP Family Medicine; Visit Provider Family Medicine
DX: E11.9 Type 2 diabetes mellitus without complications (principal); I10 Essential (primary) hypertension; Z79.899 Other long term (current) drug therapy
CPT/HCPCS: 36415; 80048; 85027

== ENCOUNTER → 2021-08-04 04:00 | Outpatient (REF) | payer MEDICARE, MEDICAID, SELFPAY ==
[2021-08-04 08:43] LABS: Anion Gap 5 (5-15); BUN 10 mg/dL (7-18); BUN/Creat Ratio 8.3 RATIO (10-20); Calcium,Total 8.5 mg/dL (8.5-10.1); Chloride 102 mmol/L (98-107); EST Glomerular Filtration Rate 63 mL/min (>60); Est Glom Filt Rate - Afr Amer 76 mL/min (>60); Glucose 80 mg/dL (74-106); Potassium 3.6 mmol/L (3.5-5.1); Sodium Level 137 mmol/L (136-145)
== END ==
LOC: OLS.WCC 04:00
PROVIDERS: PCP Family Medicine; Referring Provider Family Medicine; Visit Provider Family Medicine
DX: I10 Essential (primary) hypertension (principal); E03.9 Hypothyroidism, unspecified
CPT/HCPCS: 36415; 80048

== ENCOUNTER 2021-09-03 04:00 | Outpatient (REF) | payer MEDICARE, MEDICAID, SELFPAY ==
[2021-09-03 08:09] LABS: Hemoglobin 11.5 g/dL (13.0-16.5); Mean Corp Hgb Conc 32.9 g/dL (32-36); Mean Corpuscular Hgb 29.3 pg (27.0-32.0); Mean Corpuscular Volume 89.3 fL (80-94); Mean Platelet Vol. 12.1 fl (6.2-12.0); Platelet Count 213 K/mm3 (150-450); RBC Distribution Width CV 13.7 % (11.6-14.6); RBC Distribution Width SD 44.5 fl (35.1-43.9); Red Blood Count 3.92 M/mm3 (4.6-6.2); White Blood Count 8.4 K/mm3 (4.4-11.0)
[2021-09-03 08:23] LABS: Anion Gap 4 (5-15); BUN 13 mg/dL (7-18); BUN/Creat Ratio 11.7 RATIO (10-20); Calcium,Total 8.2 mg/dL (8.5-10.1); Chloride 101 mmol/L (98-107); Creatinine, Serum 1.11 mg/dL (0.70-1.30); EST Glomerular Filtration Rate 69 mL/min (>60); Est Glom Filt Rate - Afr Amer 83 mL/min (>60); Glucose 75 mg/dL (74-106); Potassium 3.5 mmol/L (3.5-5.1); Sodium Level 135 mmol/L (136-145)
== END 2021-09-03 23:59 | disposition home or self-care (01) ==
LOC: OLS.WCC 04:00
PROVIDERS: PCP Family Medicine; Referring Provider Family Medicine; Visit Provider Family Medicine
DX: U07.1 COVID-19 (principal); I11.0 Hypertensive heart disease with heart failure; I50.9 Heart failure, unspecified; E11.9 Type 2 diabetes mellitus without complications; E78.5 Hyperlipidemia, unspecified
CPT/HCPCS: 80048; 85027

== ENCOUNTER → 2021-10-06 | Outpatient (REF) | payer MEDICARE, MEDICAID, SELFPAY ==
[2021-10-06 08:36] LABS: Hematocrit 36.3 % (40-54); Hemoglobin 12.1 g/dL (13.0-16.5); Mean Corp Hgb Conc 33.3 g/dL (32-36); Mean Corpuscular Hgb 29.4 pg (27.0-32.0); Mean Corpuscular Volume 88.3 fL (80-94); Mean Platelet Vol. 11.6 fl (6.2-12.0); Platelet Count 242 K/mm3 (150-450); RBC Distribution Width CV 14.1 % (11.6-14.6); RBC Distribution Width SD 45.5 fl (35.1-43.9); Red Blood Count 4.11 M/mm3 (4.6-6.2); White Blood Count 7.6 K/mm3 (4.4-11.0)
[2021-10-06 08:51] LABS: Anion Gap 1 (5-15); BUN 12 mg/dL (7-18); BUN/Creat Ratio 11.7 RATIO (10-20); Calcium,Total 8.5 mg/dL (8.5-10.1); Chloride 105 mmol/L (98-107); Creatinine, Serum 1.03 mg/dL (0.70-1.30); EST Glomerular Filtration Rate 75 mL/min (>60); Est Glom Filt Rate - Afr Amer 90 mL/min (>60); Glucose 60 mg/dL (74-106); Potassium 3.4 mmol/L (3.5-5.1); Sodium Level 137 mmol/L (136-145)
== END | disposition home or self-care (01) ==
LOC: OLS.WCC 06:20
PROVIDERS: PCP Family Medicine; Visit Provider Family Medicine
DX: I10 Essential (primary) hypertension (principal); Z79.899 Other long term (current) drug therapy
CPT/HCPCS: 36415; 80048; 85027

== ENCOUNTER → 2021-11-03 | Outpatient (REF) | payer MEDICARE, MEDICAID, SELFPAY ==
[2021-11-03 07:36] LABS: Hematocrit 37.8 % (40-54); Hemoglobin 12.5 g/dL (13.0-16.5); Mean Corp Hgb Conc 33.1 g/dL (32-36); Mean Corpuscular Hgb 29.6 pg (27.0-32.0); Mean Corpuscular Volume 89.4 fL (80-94); Mean Platelet Vol. 11.8 fl (6.2-12.0); Platelet Count 227 K/mm3 (150-450); RBC Distribution Width CV 13.9 % (11.6-14.6); RBC Distribution Width SD 45.1 fl (35.1-43.9); Red Blood Count 4.23 M/mm3 (4.6-6.2); White Blood Count 8.2 K/mm3 (4.4-11.0)
[2021-11-03 07:43] LABS: Anion Gap 3 (5-15); BUN 14 mg/dL (7-18); BUN/Creat Ratio 13.6 RATIO (10-20); Calcium,Total 8.3 mg/dL (8.5-10.1); Chloride 104 mmol/L (98-107); Creatinine, Serum 1.03 mg/dL (0.70-1.30); EST Glomerular Filtration Rate 75 mL/min (>60); Est Glom Filt Rate - Afr Amer 90 mL/min (>60); Glucose 90 mg/dL (74-106); Potassium 3.6 mmol/L (3.5-5.1); Sodium Level 139 mmol/L (136-145)
== END | disposition home or self-care (01) ==
LOC: OLS.WCC 04:00
PROVIDERS: PCP Family Medicine; Visit Provider Family Medicine
DX: I11.0 Hypertensive heart disease with heart failure (principal); I50.9 Heart failure, unspecified; E11.9 Type 2 diabetes mellitus without complications
CPT/HCPCS: 36415; 80048; 85027

== ENCOUNTER → 2021-12-02 | Outpatient (REF) | payer MEDICARE, MEDICAID, SELFPAY ==
[2021-12-02 08:38] LABS: Hematocrit 32.6 % (40-54); Mean Corp Hgb Conc 33.7 g/dL (32-36); Mean Corpuscular Hgb 28.9 pg (27.0-32.0); Mean Corpuscular Volume 85.6 fL (80-94); Mean Platelet Vol. 12.1 fl (6.2-12.0); Platelet Count 226 K/mm3 (150-450); RBC Distribution Width CV 13.4 % (11.6-14.6); RBC Distribution Width SD 41.9 fl (35.1-43.9); Red Blood Count 3.81 M/mm3 (4.6-6.2); White Blood Count 11.1 K/mm3 (4.4-11.0)
[2021-12-02 08:58] LABS: Anion Gap 6 (5-15); BUN 23 mg/dL (7-18); BUN/Creat Ratio 10.6 RATIO (10-20); Calcium,Total 8.2 mg/dL (8.5-10.1); Chloride 95 mmol/L (98-107); Cholesterol 107 mg/dL (200); Creatinine, Serum 2.17 mg/dL (0.70-1.30); EST Glomerular Filtration Rate 32 mL/min (>60); Est Glom Filt Rate - Afr Amer 38 mL/min (>60); Glucose 84 mg/dL (74-106); High Density Lipoprotein 36 mg/dL; Potassium 4.3 mmol/L (3.5-5.1); Sodium Level 128 mmol/L (136-145); Thyroid Stim Hormone (TSH) 2.27 uIU/mL (0.358-3.74); Triglycerides 81 mg/dL; Very Low Density Lipoprotein 16 mg/dL (5-40)
[2021-12-02 09:07] LABS: Hemoglobin A1c 5.9 % (3.8-5.6)
== END | disposition home or self-care (01) ==
LOC: OLS.WCC 05:00
PROVIDERS: PCP Family Medicine; Visit Provider Family Medicine
DX: E11.9 Type 2 diabetes mellitus without complications (principal); I11.0 Hypertensive heart disease with heart failure; I50.9 Heart failure, unspecified; E03.9 Hypothyroidism, unspecified; E78.5 Hyperlipidemia, unspecified
CPT/HCPCS: 36415; 80048; 80061; 83036; 84443; 85027

== ENCOUNTER → 2021-12-17 | Outpatient (REF) | payer MEDICARE, MEDICAID, SELFPAY ==
[2021-12-17 08:22] LABS: Anion Gap 3 (5-15); BUN 14 mg/dL (7-18); BUN/Creat Ratio 13.3 RATIO (10-20); Calcium,Total 8.2 mg/dL (8.5-10.1); Chloride 101 mmol/L (98-107); Creatinine, Serum 1.05 mg/dL (0.70-1.30); EST Glomerular Filtration Rate 73 mL/min (>60); Est Glom Filt Rate - Afr Amer 88 mL/min (>60); Glucose 99 mg/dL (74-106); Potassium 3.7 mmol/L (3.5-5.1); Sodium Level 136 mmol/L (136-145)
== END | disposition home or self-care (01) ==
LOC: OLS.WCC 05:00
PROVIDERS: PCP Family Medicine; Visit Provider Family Medicine
DX: I10 Essential (primary) hypertension (principal); Z79.899 Other long term (current) drug therapy
CPT/HCPCS: 36415; 80048

== ENCOUNTER → 2022-01-02 | Outpatient (REF) | payer MEDICARE, MEDICAID, SELFPAY ==
[2022-01-02 09:13] LABS: Hematocrit 32.2 % (40-54); Hemoglobin 10.6 g/dL (13.0-16.5); Mean Corp Hgb Conc 32.9 g/dL (32-36); Mean Corpuscular Hgb 28.9 pg (27.0-32.0); Mean Corpuscular Volume 87.7 fL (80-94); Platelet Count 234 K/mm3 (150-450); RBC Distribution Width CV 13.9 % (11.6-14.6); Red Blood Count 3.67 M/mm3 (4.6-6.2)
[2022-01-02 09:23] LABS: Anion Gap 6 (5-15); BUN 15 mg/dL (7-18); BUN/Creat Ratio 10.3 RATIO (10-20); Chloride 98 mmol/L (98-107); Creatinine, Serum 1.45 mg/dL (0.70-1.30); EST Glomerular Filtration Rate 50 mL/min (>60); Est Glom Filt Rate - Afr Amer 61 mL/min (>60); Glucose 88 mg/dL (74-106); Potassium 3.3 mmol/L (3.5-5.1); Sodium Level 132 mmol/L (136-145)
== END | disposition home or self-care (01) ==
LOC: OLS.WCC 05:00
PROVIDERS: PCP Family Medicine; Visit Provider Family Medicine
DX: I11.0 Hypertensive heart disease with heart failure (principal); I50.9 Heart failure, unspecified; E11.9 Type 2 diabetes mellitus without complications
CPT/HCPCS: 36415; 80048; 85027

== ENCOUNTER → 2022-02-02 | Outpatient (REF) | payer MEDICARE, MEDICAID, SELFPAY ==
[2022-02-02 07:48] LABS: Hematocrit 33.2 % (40-54); Hemoglobin 10.5 g/dL (13.0-16.5); Mean Corp Hgb Conc 31.6 g/dL (32-36); Mean Corpuscular Hgb 28.8 pg (27.0-32.0); Mean Corpuscular Volume 91.2 fL (80-94); Mean Platelet Vol. 11.6 fl (6.2-12.0); Platelet Count 247 K/mm3 (150-450); RBC Distribution Width CV 14.8 % (11.6-14.6); RBC Distribution Width SD 49.2 fl (35.1-43.9); Red Blood Count 3.64 M/mm3 (4.6-6.2); White Blood Count 7.4 K/mm3 (4.4-11.0)
[2022-02-02 08:05] LABS: Anion Gap 5 (5-15); BUN 14 mg/dL (7-18); BUN/Creat Ratio 11.1 RATIO (10-20); Calcium,Total 8.5 mg/dL (8.5-10.1); Chloride 104 mmol/L (98-107); Creatinine, Serum 1.26 mg/dL (0.70-1.30); EST Glomerular Filtration Rate 59 mL/min (>60); Est Glom Filt Rate - Afr Amer 72 mL/min (>60); Glucose 104 mg/dL (74-106); Potassium 3.8 mmol/L (3.5-5.1); Sodium Level 139 mmol/L (136-145)
[2022-02-02 08:43] LABS: Vitamin B12 789 pg/mL (211-911)
== END ==
LOC: OLS.WCC 05:00
PROVIDERS: PCP Family Medicine; Visit Provider Family Medicine
DX: I11.0 Hypertensive heart disease with heart failure (principal); I50.9 Heart failure, unspecified; E11.9 Type 2 diabetes mellitus without complications; E03.9 Hypothyroidism, unspecified
CPT/HCPCS: 36415; 80048; 82607; 85027

== ENCOUNTER → 2022-03-03 05:00 | Outpatient (REF) | payer MEDICARE, MEDICAID, SELFPAY ==
[2022-03-03 09:06] LABS: Hematocrit 33.1 % (40-54); Hemoglobin 10.7 g/dL (13.0-16.5); Mean Corp Hgb Conc 32.3 g/dL (32-36); Mean Corpuscular Hgb 30.1 pg (27.0-32.0); Mean Platelet Vol. 12.2 fl (6.2-12.0); Platelet Count 196 K/mm3 (150-450); RBC Distribution Width SD 51.8 fl (35.1-43.9); Red Blood Count 3.56 M/mm3 (4.6-6.2); White Blood Count 7.4 K/mm3 (4.4-11.0)
[2022-03-03 09:25] LABS: Anion Gap 4 (5-15); BUN 17 mg/dL (7-18); Calcium,Total 8.3 mg/dL (8.5-10.1); Chloride 104 mmol/L (98-107); Creatinine, Serum 1.21 mg/dL (0.70-1.30); EST Glomerular Filtration Rate 62 mL/min (>60); Est Glom Filt Rate - Afr Amer 75 mL/min (>60); Glucose 85 mg/dL (74-106); Potassium 3.7 mmol/L (3.5-5.1); Sodium Level 139 mmol/L (136-145)
== END ==
LOC: OLS.WCC 05:00
PROVIDERS: PCP Family Medicine; Visit Provider Family Medicine
DX: I11.0 Hypertensive heart disease with heart failure (principal); I50.9 Heart failure, unspecified; E11.9 Type 2 diabetes mellitus without complications
CPT/HCPCS: 36415; 80048; 85027

== ENCOUNTER → 2022-04-03 | Outpatient (REF) | payer MEDICARE, MEDICAID, SELFPAY ==
[2022-04-03 09:06] LABS: Hematocrit 33.5 % (40-54); Mean Corp Hgb Conc 32.8 g/dL (32-36); Mean Corpuscular Hgb 29.6 pg (27.0-32.0); Mean Corpuscular Volume 90.3 fL (80-94); Mean Platelet Vol. 11.3 fl (6.2-12.0); Platelet Count 233 K/mm3 (150-450); RBC Distribution Width CV 13.8 % (11.6-14.6); RBC Distribution Width SD 45.6 fl (35.1-43.9); Red Blood Count 3.71 M/mm3 (4.6-6.2); White Blood Count 6.5 K/mm3 (4.4-11.0)
[2022-04-03 09:30] LABS: Anion Gap 4 (5-15); BUN 19 mg/dL (7-18); BUN/Creat Ratio 15.2 RATIO (10-20); Calcium,Total 8.1 mg/dL (8.5-10.1); Chloride 106 mmol/L (98-107); Creatinine, Serum 1.25 mg/dL (0.70-1.30); EST Glomerular Filtration Rate 60 mL/min (>60); Est Glom Filt Rate - Afr Amer 72 mL/min (>60); Glucose 96 mg/dL (74-106); Potassium 3.9 mmol/L (3.5-5.1); Sodium Level 138 mmol/L (136-145)
== END ==
LOC: OLS.WCC 05:00
PROVIDERS: PCP Family Medicine; Visit Provider Family Medicine
DX: I11.0 Hypertensive heart disease with heart failure (principal); I50.9 Heart failure, unspecified; E11.9 Type 2 diabetes mellitus without complications
CPT/HCPCS: 36415; 80048; 85027

== ENCOUNTER 2022-04-10 16:31 | Emergency (ER) | payer MEDICARE, MEDICAID, SELFPAY ==
[2022-04-10 16:33] VITALS: BP 185/64; PULSE 71; RESP 18; TEMP 37.2; O2SAT 98; BMI 35.4
--- NOTE | 2022-04-10 16:39 | EKG12_ITS ---
Test Reason : MEDICAL CLEARANCE Blood Pressure : / mmHG Vent. Rate : 067 BPM Atrial Rate : 067 BPM P-R Int : 166 ms QRS Dur : 098 ms QT Int : 394 ms P-R-T Axes : -06 023 082 degrees QTc Int : 416 ms Normal sinus rhythm Normal ECG Confirmed by ISAAC GODFREY, SHEYLA ([id number]), slot editor CAITLIN CHAPPELL ([id number]) on 04/14/2022 9:02:54 AM Referred By: Confirmed By:KENYA GRAY MD
[2022-04-10 16:52] LABS: Absolute Lymphocyte Count 2.55 X10^3/uL (0.83-4.51); Absolute Neutrophil Count 6.2 X10^3/uL (2.0-7.7); Basophil# 0.02 X10^3/uL; Basophil% 0.2 % (0-1); Hematocrit 33.8 % (40-54); Hemoglobin 11.1 g/dL (13.0-16.5); Lymphocyte # 2.55 X10^3/ul (0.83-4.51); Lymphocyte % 25.6 % (19-41); Mean Corp Hgb Conc 32.8 g/dL (32-36); Mean Corpuscular Hgb 29.2 pg (27.0-32.0); Mean Corpuscular Volume 88.9 fL (80-94); Mean Platelet Vol. 11.1 fl (6.2-12.0); Monocyte# 1.03 X10^3/uL; Monocyte% 10.3 % (0-10); NRBC Flagged by Analyzer 0 % (0-5); Neutrophil # 6.24 X10^3/uL (2.7-7.7); Neutrophil % 62.5 % (47-70); Platelet Count 288 K/mm3 (150-450); RBC Distribution Width CV 13.4 % (11.6-14.6); RBC Distribution Width SD 43.7 fl (35.1-43.9)
[2022-04-10 17:07] LABS: Anion Gap 6 (5-15); BUN 24 mg/dL (7-18); BUN/Creat Ratio 16.2 RATIO (10-20); Calcium,Total 8.4 mg/dL (8.5-10.1); Chloride 100 mmol/L (98-107); Creatinine, Serum 1.48 mg/dL (0.70-1.30); EST Glomerular Filtration Rate 49 mL/min (>60); Est Glom Filt Rate - Afr Amer 59 mL/min (>60); Estimated Creatinine Clearance 38.32 ml/min; Glucose 181 mg/dL (74-106); Potassium 4.4 mmol/L (3.5-5.1); Sodium Level 133 mmol/L (136-145)
--- NOTE | 2022-04-10 17:13 | CM.ED ---
CLAUDIO Note Referral Source: Elva, Admissions at [facility] Referral Reason: Patient is displaying manic behaviors and needs psychiatric placement for crisis stabilization and med management Chief Complaint: Aixa advised that patient has diagnosis of schizophrenia, unspecified and bipolar. Patient is also having delusions about not being manic. Aixa siad that patient voiced delusion that the young RESORT HOST's are attacking him. Aixa said that patient is up talking to the jara. Patient has been sexually preoccupied and they were managing patient but now the staff feels that patient needs inpatient psych. Staff has contacted [facility]. Aixa said that patient has been up for hours and talking to the jara and anybody. Patient also has eloped but they were able to talk him back into the setting. Patient is tangential, unable to be redirected and has flight of ideas along with paranoia. Patient has been belligerent and verbally abusive to the staff but has not hit anyone per Aixa. Aixa said that patient can return to [facility] upon discharge from [facility]. RN said that patient was moving his feet and referenced his feet and said you know they are like that.. I like the boys.. I am bisexual. Aixa advised that patient is talking nonsensically. He also has slept 4 hours in the last 72 hours. His eating is good per Aixa. SW walked into patient's room and patient was talking and no one was in the room. SW asked patient why he is at the hospital and he said I will tell you when I hear the story.. those people are not a mental alex.. they do not know how to work with mental health patients. Patient said when they gave me that shot I prayed that it wouldn't make me sleepy and I am more awake now and more alert and that shot was a waste of money. Patient said I just met with the nurse practitioner and she said I was completely better. Patient said I am healed and that he is feeling as good now as I did when I went to psych hospital. When geriatric social work professor left the room patient was continuing to talk and unresponsive to social cues. Marital History: Single Identified Gender: Male Sexual Orientation: Bisexual today per staff Living Situation: [facility] in the Assisted Facility. Per Aixa in admissions patient can return. Support: Patient has a POA, Brother Jesus. History: None Education: Patient graduated high school Mental Health Treatment: Isabelle Kruse patient has been diagnosed with schizophrenia unspecified and bipolar. Isabelle Kruse patient has not been taking his psych meds as prescribed. Patient said that a MENTAL HEALTH COUNSELOR Doris [facility]. Triggers/Stressors: Aixa said that patient's current stressor is his cycle. Coping Skills: Aixa said that typically music and reading work for patient but they are currently unsuccessful Abuse Issues: Unknown Substance Abuse: Not within the past couple of years isabelle Kruse Risk to Self and Others: Patient denied Suicidal Ideation Patient denied Homicidal Ideation Aixa reports no violence. MSE Orientation: x3 Memory: Intact Appearance: Disheveled Mood: Elevated and Labile Communication Pattern: Rambling and pressured speech Thought Process: Preoccupied and Nonsensical speech General Intellectual Functioning: Average Judgement: Impaired Insight: [facility] has contacted [facility] for admission. SW consulted with MD Coulter who is in agreement that patient needs inpatient psych for stabilization and med management. Plan: Inpatient psych
[2022-04-10 17:17] LABS: Amphetamine Urine VISTA NEGATIVE (<1000 ng/mL); Barbiturate Urine VISTA NEGATIVE (< 200 ng/mL); Benzodiazepine Urine VISTA NEGATIVE (< 200 ng/mL); Cocaine Urine VISTA NEGATIVE (< 300 ng/mL); Ecstacy Urine VISTA NEGATIVE (< 500 ng/mL); Methadone Urine VISTA NEGATIVE (< 300 ng/mL); PCP Urine VISTA NEGATIVE (< 25 ng/mL); THC Urine VISTA NEGATIVE (< 50 ng/mL); Vista UDS pH Range 9
[2022-04-10 18:11] LABS: Mucous, Urine 0 SEEN /hpf (<or=2+)
[2022-04-10 18:23] LABS: Color, Urine Yellow (Yellow); Glucose, Dipstick Normal (Normal); Ketone-Dipstick Negative (Negative); Leukocyte Esterase-Dipstick 500 /ul (Negative); Nitrite-Dipstick Negative (Negative); Occult Blood-Urine 150 /ul (Negative); Protein-Dipstick 100 mg/dl (Negative); Urine Bilirubin Dipstick Negative (Negative); Urine Clarity Cloudy (Clear); Urine Urobilinogen Normal (Normal)
[2022-04-10 18:29] LABS: Bacteria 2+ /hpf (None Seen); Red Blood Cells-Urine 5-10 SEEN /hpf (0-5); Squamous Epithelial Cells - UA 5-10 SEEN /hpf (0-5); Triple Phosphate Crystals Ur 4+ /hpf (<or=1+); White Blood Cells 5-10 SEEN /hpf (0-5)
--- NOTE | 2022-04-10 18:34 | EDS_ITS ---
HPI History of Present Illness Chief Complaint: General Illness Informant: patient and SNF Narrative Narrative: Patient is a 76-year-old male with history of depression, bipolar disorder, schizophrenia DM, hypothyroid and hypertension as well as longstanding IBS/d iarrhea presenting for concern of gerhard. He is presenting from [facility]. They are concerned that he needs psychiatric evaluation and admission. He was sent in for medical clearance. Per nursing staff, patient has only slept 4 hours in the last 72 hours, has had nonsensical speech, flight of ideas and paranoia. Patient is also intermittently belligerent and verbally abusive with staff. They are trying to obtain placement to clear [place]. Patient currently has no complaints however he has tangential speech and cannot be redirected for short amount of time. He does state God healed me 8 weeks ago and I am fine now. Other times he is insightful about his medical history. He does have a chronic indwelling Saleem catheter. [facility] Medical History Bipolar disorder, unspecified Saleem catheter in place HTN (hypertension) Hypothyroid Schizophrenia Type 2 diabetes mellitus Home Medications saxagliptin 5 mg tablet (Onglyza) 5 mg PO DAILY dm 11/28/15 [History Last Taken 08/03/20 08:00] omeprazole 20 mg capsule,delayed release 20 mg PO DAILY GERD 06/04/16 [History Last Taken 08/03/20 16:00] levothyroxine 50 mcg tablet 50 mcg PO DAILY thyroid 11/08/18 [History Last Taken 08/03/20 08:00] melatonin 10 mg sublingual tablet 10 mg PO QHS insomnia 11/08/18 [History Last Taken 08/02/20 19:00] quetiapine 100 mg tablet 200 mg PO QHS mental health 11/08/18 [History Last Taken 08/03/20 08:00] quetiapine 300 mg tablet (Seroquel) 200 mg PO QHS mental health 11/08/18 [History Last Taken 08/03/20 19:00] amlodipine 5 mg tablet 10 mg PO DAILY blood pressure 07/08/20 [History Last Taken 08/03/20 08:00] atorvastatin 40 mg tablet 20 mg PO QHS cholesterol 07/08/20 [History Last Taken 08/03/20 19:00] buspirone 15 mg tablet 15 mg PO BID anxiety 07/08/20 [History Last Taken 08/03/20 16:00] oxcarbazepine 600 mg tablet 150 mg PO BID mood 07/08/20 [History Last Taken 08/03/20 17:00] polyethylene glycol 3350 17 gram oral powder packet 17 gm PO DAILY 07/08/20 [History Last Taken Unknown] potassium 99 mg tablet 20 mg PO DAILY supplement 07/08/20 [History Last Taken 08/03/20 08:00] sennosides 8.6 mg tablet 2 tab PO QHS stool softener 07/08/20 [History Last Taken 07/19/20 08:00] Acetaminophen 1,000 mg PO Q4H PRN PRN Pain Score 1-10 08/03/20 [History Last Taken 08/02/20 10:00] bisacodyl 10 mg rectal suppository 1 supp.rect RECTAL Q72H PRN Constipation 08/03/20 [History Last Taken Unknown] ibuprofen 400 mg tablet 400 mg PO Q6H PRN pain 08/03/20 [History Last Taken Unknown] cyanocobalamin (vitamin B-12) 500 mcg tablet 1,000 mcg PO DAILY@0800 #30 tabs 08/10/20 [Rx Last Taken Unknown] furosemide 20 mg tablet 20 mg PO DAILY 04/10/22 [History Last Taken Unknown] gabapentin 100 mg capsule 100 mg PO TID 04/10/22 [History Last Taken Unknown] insulin glargine 100 unit/mL subcutaneous solution 20 unit SQ QHS DM 04/10/22 [History Last Taken Unknown] metoprolol succinate 25 mg tablet,extended release 24 hr 25 mg PO BID 04/10/22 [History Last Taken Unknown] sertraline 50 mg tablet 50 mg PO DAILY 04/10/22 [History Last Taken Unknown] Allergy/AdvReac Type Severity Reaction Status Date / Time hydrochlorothiazide Allergy Unknown Verified 04/10/22 16:32 [From Maxzide] triamterene [From Maxzide] Allergy Unknown Verified 04/10/22 16:32 Social History Smoking Status: Never smoker ROS ROS ED Review of Systems ROS Unobtainable: due to mental condition EXAM Physical Exam Const Vital Signs: 04/10/22 16:33 04/10/22 16:36 04/10/22 18:42 Temperature 98.9 F 98.9 F Temperature Source Temporal Temporal Pulse Rate 71 65 Respiratory Rate 18 18 Respiratory Effort Normal Non-Labored Respiratory Pattern Normal Blood Pressure 185/64 H 136/71 H Blood Pressure Mean 104 92 Pulse Ox 98 96 Oxygen Delivery Method Room Air Room Air 04/10/22 19:36 04/10/22 19:37 04/10/22 21:14 Temperature 98.7 F Temperature Source Temporal Pulse Rate 67 67 73 Respiratory Rate 18 18 18 Respiratory Effort Respiratory Pattern Blood Pressure 188/92 H 188/67 H Blood Pressure Mean 124 107 Pulse Ox 98 98 97 Oxygen Delivery Method Room Air Room Air Room Air Positive well nourished and well developed General Appearance ED: well developed and NAD HEENT Reports dry mucous membranes Mouth ED: Yes dry mucous membranes Mouth: dry mucous membranes Eyes PERRL and EOMs intact bilaterally Neck supple and no JVD Chest Wall inspection of chest normal and palpation of chest normal Resp normal respiratory effort and clear to auscultation bilaterally Cardio regular rate, regular rhythm and no murmurs GI normal to inspection, nondistended, normoactive bowel sounds and non-tender Narrative: Saleem catheter in place, dark urine present Neuro Neuro Narrative: No focal deficits appreciated Sensorium / Orientation: alert and orientation impaired Motor Exam: Negative for general weakness Psych Psych Narrative: Patient appears internally stimulated, excessive speech and has poor insight. Skin no rashes or lesions noted and no wounds MDM MDM MDM Narrative Medical decision making narrative: Patient arrives for medical clearance. Patient appears manic. He has no physical complaints. I do think he would benefit from psychiatric treatment. Lab work shows a chronic anemia as well as of mildly elevated creatinine which is near his baseline. He does not have an CHINO. He is given IV fluids in the ER. He has a chronic indwelling Saleem catheter however the urinalysis does show some findings concerning for infection. He is negative nitrites with no significant pyuria and 2+ bacteria. Will send off for culture. Given no leukocytosis or other infectious symptoms I do not think treatment is indicated likely this is chronic colonization. Patient is medically cleared. Down to oncoming provider pending acceptance at psychiatric facility. Lab Data Attestation: I reviewed the patient's lab results. Labs: Laboratory Results - last 24 hr 0904/10/22 04/10/22 16:40 16:40 16:40 WBC 10.0 RBC 3.80 L Hgb 11.1 L Hct 33.8 L MCV 88.9 MCH 29.2 MCHC 32.8 RDW Std Deviation 43.7 RDW Coeff of Celine 13.4 Plt Count 288 MPV 11.1 Immature Gran % (Auto) 0.400 Neut % (Auto) 62.5 Lymph % (Auto) 25.6 Duchesne % (Auto) 10.3 H Eos % (Auto) 1.0 Baso % (Auto) 0.2 Absolute Neuts (auto) 6.2 Absolute Lymphs (auto) 2.55 Nucleated RBC % 0 Sodium 133 L Potassium 4.4 Chloride 100 Carbon Dioxide 27.0 Anion Gap 6 BUN 24 H Creatinine 1.48 H Estim Creat Clear Calc 38.32 Est GFR (MDRD) Af Amer 59 L Est GFR (MDRD) Non-Af 49 L BUN/Creatinine Ratio 16.2 Glucose 181 H Calcium 8.4 L Urine Color Urine Clarity Urine pH Ur Specific [place] Urine Protein Urine Glucose (UA) Urine Ketones Urine Occult Blood Urine Nitrite Urine Bilirubin Urine Urobilinogen Ur Leukocyte Esterase Urine RBC Urine WBC Ur Squamous Epith Cells Triple Phos Crystals Urine Bacteria Urine Mucus Urine Opiates Screen Urine Methadone Screen Ur Barbiturates Screen Ur Phencyclidine Scrn Ur Amphetamines Screen MDMA (Ecstasy) Screen U Benzodiazepines Scrn Urine Cocaine Screen U Cannabinoids Screen Ur Drug Screen Comment Ethyl Alcohol 7.0 04/10/22 04/10/22 16:40 16:40 WBC RBC Hgb Hct MCV MCH MCHC RDW Std Deviation RDW Coeff of Celine Plt Count MPV Immature Gran % (Auto) Neut % (Auto) Lymph % (Auto) Duchesne % (Auto) Eos % (Auto) Baso % (Auto) Absolute Neuts (auto) Absolute Lymphs (auto) Nucleated RBC % Sodium Potassium Chloride Carbon Dioxide Anion Gap BUN Creatinine Estim Creat Clear Calc Est GFR (MDRD) Af Amer Est GFR (MDRD) Non-Af BUN/Creatinine Ratio Glucose Calcium Urine Color Yellow Urine Clarity Cloudy Urine pH 8.0 Ur Specific [place] 1.010 Urine Protein 100 H Urine Glucose (UA) Normal Urine Ketones Negative Urine Occult Blood 150 H Urine Nitrite Negative Urine Bilirubin Negative Urine Urobilinogen Normal Ur Leukocyte Esterase 500 H Urine RBC 5-10 SEEN Urine WBC 5-10 SEEN Ur Squamous Epith Cells 5-10 SEEN Triple Phos Crystals 4+ Urine Bacteria 2+ Urine Mucus 0 SEEN Urine Opiates Screen NEGATIVE Urine Methadone Screen NEGATIVE Ur Barbiturates Screen NEGATIVE Ur Phencyclidine Scrn NEGATIVE Ur Amphetamines Screen NEGATIVE MDMA (Ecstasy) Screen NEGATIVE U Benzodiazepines Scrn NEGATIVE Urine Cocaine Screen NEGATIVE U Cannabinoids Screen NEGATIVE Ur Drug Screen Comment Ethyl Alcohol Rhythm Strip Rhythm Strip: Sinus Rhythm Rate: 67 Ectopy: None EKG Initial EKG: Attestation: I personally reviewed and interpreted this EKG as follows: Interpretation: Sinus Rhythm Comments: Patient had a rate of 67 Normal axis Normal intervals Normal ST segments Compared to prior EKG on 08/06/2020 patient now has abnormal TN interval and no PACs Discharge Plan Triage Chief Complaint: General Illness ED Provider: Lorin Coulter Dx/Rx/DC Orders Clinical Impression: Bipolar disorder, Gerhard, Chronic indwelling Saleem catheter Prescriptions: No Action Onglyza 5 MG tablet 5 mg PO DAILY omeprazole 20 MG capsule 20 mg PO DAILY quetiapine [Seroquel] 300 MG tablet 200 mg PO QHS quetiapine 100 MG tablet 200 mg PO QHS levothyroxine 50 MCG tablet 50 mcg PO DAILY melatonin 10 MG tablet 10 mg PO QHS atorvastatin 40 MG tablet 20 mg PO QHS sennosides 1 TABLET tablet 2 tab PO QHS polyethylene glycol 3350 17 GM packet 17 gm PO DAILY amlodipine 5 MG tablet 10 mg PO DAILY potassium 99 MG tablet 20 mg PO DAILY oxcarbazepine 600 MG tablet 150 mg PO BID buspirone 15 MG tablet 15 mg PO BID bisacodyl 10 MG suppository 1 supp.rect RECTAL Q72H PRN (Reason: Constipation) ibuprofen 400 MG tablet 400 mg PO Q6H PRN (Reason: pain) Acetaminophen 500 MG tablet 1,000 mg PO Q4H PRN PRN (Reason: Pain Score 1-10) cyanocobalamin (vitamin B-12) 500 MCG tablet 1,000 mcg PO DAILY@0800 Qty: 30 0RF gabapentin 100 mg Capsule 100 mg PO TID metoprolol succinate 25 mg Tablet Extended Release 24 Hr 25 mg PO BID sertraline 50 mg Tablet 50 mg PO DAILY insulin glargine 100 UNIT/ML solution 20 unit SQ QHS furosemide 20 MG tablet 20 mg PO DAILY Primary Care Provider: Parviz Acevedo Referrals: Parviz Acevedo MD [Primary Care Provider] -
[2022-04-10] MEDS: 0.9% Normal Saline 1,000 ML 999 ML IV (18:41)
[2022-04-10 18:42] VITALS: BP 136/71; PULSE 65; RESP 18; TEMP 37.2; O2SAT 96
[2022-04-10 19:36] VITALS: BP 188/92; PULSE 67; RESP 18; O2SAT 98
[2022-04-10 19:37] VITALS: BP 188/67; PULSE 67; RESP 18; TEMP 37.1; O2SAT 98
--- NOTE | 2022-04-10 20:39 | CM.ED ---
CLAUDIO faxed referral to [facility] as [facility] had advised that they were aware of patient and patient was coming to the ED for medical clearance. CLAUDIO received call from Violeta from [facility]. He inquired about patient's status etc. CLAUDIO encouraged him to call [facility] for specific questions. CLAUDIO received call from Violeta. He said that he was unable to speak to anyone at the [facility] [place]. CLAUDIO had veneer sample maker speak to him regarding medical concerns or issues. Per MD patient is medically clear. signed pink slip for patient. CLAUDIO received call from Violeta. Violeta said that patient was not accepted and diverted to another facility. CLAUDIO called [facility]. No answer. CLAUDIO texted Stella at Crisis and requested assistance with placement. CLAUDIO faxed referral to Crisis. Crisis will secure placement. Plan: Inpatient psych. Crisis will work on placement. Nichole LINDER
[2022-04-10 21:14] VITALS: PULSE 73; RESP 18; O2SAT 97
[2022-04-10 23:31] LABS: Bedside Glucose 102 mg/dL (74-106)
[2022-04-11 02:57] VITALS: O2SAT 96
--- NOTE | 2022-04-11 02:57 | NURSING ---
ACCEPTED TO [facility] [place] BY DR. SLOAN [phone] [facility] NURSING REPORT
[2022-04-11 05:03] VITALS: BP 159/74; PULSE 64; RESP 18; O2SAT 94
[2022-04-11 06:57] VITALS: BP 159/74; PULSE 64; RESP 18
== END 2022-04-11 06:59 ==
PROVIDERS: Emergency Provider Emergency Medicine; PCP Family Medicine; Visit Provider Emergency Medicine
DX: F31.9 Bipolar disorder, unspecified (principal); F20.9 Schizophrenia, unspecified; I10 Essential (primary) hypertension; E03.9 Hypothyroidism, unspecified; Z79.899 Other long term (current) drug therapy
CPT/HCPCS: 80048; 80307; 81001; 82077; 82962; 85025; 87077; 87086; 87088; 87186; 87811; 93005; 96360; 99285; J7030; A4216

== ENCOUNTER → 2022-05-04 | Outpatient (REF) | payer MEDICARE, MEDICAID, SELFPAY ==
[2022-05-04 09:01] LABS: Hematocrit 29.9 % (40-54); Hemoglobin 9.4 g/dL (13.0-16.5); Mean Corp Hgb Conc 31.4 g/dL (32-36); Mean Corpuscular Hgb 28.8 pg (27.0-32.0); Mean Corpuscular Volume 91.7 fL (80-94); Platelet Count 256 K/mm3 (150-450); RBC Distribution Width CV 13.5 % (11.6-14.6); RBC Distribution Width SD 45.2 fl (35.1-43.9); Red Blood Count 3.26 M/mm3 (4.6-6.2); White Blood Count 6.6 K/mm3 (4.4-11.0)
[2022-05-04 09:15] LABS: Vitamin B12 442 pg/mL (211-911)
[2022-05-04 09:16] LABS: Hemoglobin A1c 7.1 % (3.8-5.6)
[2022-05-04 09:26] LABS: Anion Gap 7 (5-15); BUN 17 mg/dL (7-18); BUN/Creat Ratio 14.2 RATIO (10-20); Chloride 99 mmol/L (98-107); Cholesterol 120 mg/dL (200); EST Glomerular Filtration Rate 63 mL/min (>60); Est Glom Filt Rate - Afr Amer 76 mL/min (>60); Glucose 182 mg/dL (74-106); High Density Lipoprotein 47 mg/dL; Potassium 3.7 mmol/L (3.5-5.1); Sodium Level 135 mmol/L (136-145); Thyroid Stim Hormone (TSH) 2.31 uIU/mL (0.358-3.74); Triglycerides 107 mg/dL; Very Low Density Lipoprotein 21 mg/dL (5-40)
== END ==
LOC: OLS.WCC 04:00
PROVIDERS: PCP Family Medicine; Referring Provider Family Medicine; Visit Provider Family Medicine
DX: I11.0 Hypertensive heart disease with heart failure (principal); I50.9 Heart failure, unspecified; E11.9 Type 2 diabetes mellitus without complications
CPT/HCPCS: 36415; 80048; 80061; 82607; 83036; 84443; 85027

== ENCOUNTER → 2022-06-02 | Outpatient (REF) | payer MEDICARE, MEDICAID, SELFPAY ==
[2022-06-02 09:12] LABS: Hematocrit 32.5 % (40-54); Hemoglobin 10.6 g/dL (13.0-16.5); Mean Corp Hgb Conc 32.6 g/dL (32-36); Mean Corpuscular Hgb 29.4 pg (27.0-32.0); Mean Platelet Vol. 11.1 fl (6.2-12.0); Platelet Count 240 K/mm3 (150-450); RBC Distribution Width CV 13.3 % (11.6-14.6); Red Blood Count 3.61 M/mm3 (4.6-6.2); White Blood Count 6.5 K/mm3 (4.4-11.0)
[2022-06-02 09:42] LABS: Anion Gap 4 (5-15); BUN 20 mg/dL (7-18); BUN/Creat Ratio 15.9 RATIO (10-20); Calcium,Total 8.2 mg/dL (8.5-10.1); Chloride 104 mmol/L (98-107); Cholesterol 140 mg/dL (200); Creatinine, Serum 1.26 mg/dL (0.70-1.30); EST Glomerular Filtration Rate 59 mL/min (>60); Est Glom Filt Rate - Afr Amer 71 mL/min (>60); Glucose 140 mg/dL (74-106); High Density Lipoprotein 54 mg/dL; Potassium 4.2 mmol/L (3.5-5.1); Sodium Level 136 mmol/L (136-145); Thyroid Stim Hormone (TSH) 2.81 uIU/mL (0.358-3.74); Triglycerides 75 mg/dL; Very Low Density Lipoprotein 15 mg/dL (5-40)
[2022-06-02 09:44] LABS: Vitamin B12 856 pg/mL (211-911)
[2022-06-02 09:56] LABS: Hemoglobin A1c 7.1 % (3.8-5.6)
== END ==
LOC: OLS.WCC 05:00
PROVIDERS: PCP Family Medicine; Visit Provider Family Medicine
DX: I11.0 Hypertensive heart disease with heart failure (principal); I50.9 Heart failure, unspecified; E11.9 Type 2 diabetes mellitus without complications; E78.5 Hyperlipidemia, unspecified
CPT/HCPCS: 36415; 80048; 80061; 82607; 83036; 84443; 85027

== ENCOUNTER → 2022-07-06 | Outpatient (REF) | payer MEDICARE, MEDICAID, SELFPAY ==
[2022-07-06 08:13] LABS: Hematocrit 30.5 % (40-54); Hemoglobin 10.3 g/dL (13.0-16.5); Mean Corp Hgb Conc 33.8 g/dL (32-36); Mean Corpuscular Hgb 30.3 pg (27.0-32.0); Mean Corpuscular Volume 89.7 fL (80-94); Mean Platelet Vol. 11.3 fl (6.2-12.0); Platelet Count 234 K/mm3 (150-450); RBC Distribution Width CV 13.6 % (11.6-14.6); RBC Distribution Width SD 44.7 fl (35.1-43.9); White Blood Count 6.8 K/mm3 (4.4-11.0)
[2022-07-06 08:21] LABS: Anion Gap 2 (5-15); BUN 15 mg/dL (7-18); BUN/Creat Ratio 10.3 RATIO (10-20); Chloride 101 mmol/L (98-107); Creatinine, Serum 1.46 mg/dL (0.70-1.30); EST Glomerular Filtration Rate 50 mL/min (>60); Est Glom Filt Rate - Afr Amer 60 mL/min (>60); Glucose 98 mg/dL (74-106); Potassium 4.1 mmol/L (3.5-5.1); Sodium Level 135 mmol/L (136-145)
== END ==
LOC: OLS.WCC 05:00
PROVIDERS: PCP Family Medicine; Visit Provider Family Medicine
DX: I11.0 Hypertensive heart disease with heart failure (principal); I50.9 Heart failure, unspecified; E11.9 Type 2 diabetes mellitus without complications
CPT/HCPCS: 36415; 80048; 85027

== ENCOUNTER → 2022-08-04 | Outpatient (REF) | payer MEDICARE, MEDICAID, SELFPAY ==
[2022-08-04 10:24] LABS: Hematocrit 34.5 % (40-54); Hemoglobin 11.1 g/dL (13.0-16.5); Mean Corp Hgb Conc 32.2 g/dL (32-36); Mean Corpuscular Hgb 28.6 pg (27.0-32.0); Mean Corpuscular Volume 88.9 fL (80-94); Mean Platelet Vol. 10.7 fl (6.2-12.0); Platelet Count 271 K/mm3 (150-450); RBC Distribution Width CV 13.4 % (11.6-14.6); RBC Distribution Width SD 43.9 fl (35.1-43.9); Red Blood Count 3.88 M/mm3 (4.6-6.2); White Blood Count 7.6 K/mm3 (4.4-11.0)
[2022-08-04 10:35] LABS: Anion Gap 5 (5-15); BUN 20 mg/dL (7-18); BUN/Creat Ratio 13.3 RATIO (10-20); Calcium,Total 8.3 mg/dL (8.5-10.1); Chloride 97 mmol/L (98-107); EST Glomerular Filtration Rate 48 mL/min (>60); Est Glom Filt Rate - Afr Amer 58 mL/min (>60); Glucose 109 mg/dL (74-106); Potassium 4.1 mmol/L (3.5-5.1); Sodium Level 131 mmol/L (136-145)
== END ==
LOC: OLS.WCC 05:00
PROVIDERS: PCP Family Medicine; Visit Provider Family Medicine
DX: I11.0 Hypertensive heart disease with heart failure (principal); I50.9 Heart failure, unspecified
CPT/HCPCS: 36415; 80048; 85027

== ENCOUNTER → 2022-09-03 | Outpatient (REF) | payer MEDICARE, MEDICAID, SELFPAY ==
[2022-09-03 08:49] LABS: Hematocrit 31.1 % (40-54); Hemoglobin 10.2 g/dL (13.0-16.5); Mean Corp Hgb Conc 32.8 g/dL (32-36); Mean Corpuscular Hgb 29.4 pg (27.0-32.0); Mean Corpuscular Volume 89.6 fL (80-94); Mean Platelet Vol. 11.3 fl (6.2-12.0); Platelet Count 212 K/mm3 (150-450); RBC Distribution Width CV 13.1 % (11.6-14.6); RBC Distribution Width SD 42.5 fl (35.1-43.9); Red Blood Count 3.47 M/mm3 (4.6-6.2); White Blood Count 6.3 K/mm3 (4.4-11.0)
[2022-09-03 09:20] LABS: Anion Gap 8 (5-15); BUN 18 mg/dL (7-18); BUN/Creat Ratio 12.1 RATIO (10-20); Chloride 97 mmol/L (98-107); Creatinine, Serum 1.49 mg/dL (0.70-1.30); EST Glomerular Filtration Rate 49 mL/min (>60); Est Glom Filt Rate - Afr Amer 59 mL/min (>60); Glucose 130 mg/dL (74-106); Potassium 3.8 mmol/L (3.5-5.1); Sodium Level 134 mmol/L (136-145)
== END ==
LOC: OLS.WCC 05:00
PROVIDERS: PCP Family Medicine; Visit Provider Family Medicine
DX: I11.0 Hypertensive heart disease with heart failure (principal); I50.9 Heart failure, unspecified; E11.9 Type 2 diabetes mellitus without complications
CPT/HCPCS: 36415; 80048; 85027

== ENCOUNTER → 2022-10-05 | Outpatient (REF) | payer MEDICARE, MEDICAID, SELFPAY ==
[2022-10-05 09:05] LABS: Hematocrit 32.9 % (40-54); Hemoglobin 10.7 g/dL (13.0-16.5); Mean Corp Hgb Conc 32.5 g/dL (32-36); Mean Corpuscular Hgb 29.1 pg (27.0-32.0); Mean Corpuscular Volume 89.4 fL (80-94); Mean Platelet Vol. 11.1 fl (6.2-12.0); Platelet Count 222 K/mm3 (150-450); RBC Distribution Width CV 12.9 % (11.6-14.6); RBC Distribution Width SD 42.5 fl (35.1-43.9); Red Blood Count 3.68 M/mm3 (4.6-6.2); White Blood Count 8.1 K/mm3 (4.4-11.0)
[2022-10-05 09:25] LABS: Anion Gap 6 (5-15); BUN 17 mg/dL (7-18); Calcium,Total 8.3 mg/dL (8.5-10.1); Chloride 97 mmol/L (98-107); EST Glomerular Filtration Rate 42 mL/min (>60); Est Glom Filt Rate - Afr Amer 51 mL/min (>60); Glucose 101 mg/dL (74-106); Potassium 4.5 mmol/L (3.5-5.1); Sodium Level 132 mmol/L (136-145)
== END ==
LOC: OLS.WCC 04:00
PROVIDERS: PCP Family Medicine; Visit Provider Family Medicine
DX: I11.0 Hypertensive heart disease with heart failure (principal); I50.9 Heart failure, unspecified; E11.9 Type 2 diabetes mellitus without complications
CPT/HCPCS: 36415; 80048; 85027

== ENCOUNTER → 2022-10-07 | Outpatient (REF) | payer MEDICARE, MEDICAID, SELFPAY ==
[2022-10-07 10:44] LABS: Hematocrit 32.9 % (40-54); Hemoglobin 10.8 g/dL (13.0-16.5); Mean Corp Hgb Conc 32.8 g/dL (32-36); Mean Corpuscular Hgb 29.3 pg (27.0-32.0); Mean Corpuscular Volume 89.2 fL (80-94); Mean Platelet Vol. 10.8 fl (6.2-12.0); Platelet Count 215 K/mm3 (150-450); RBC Distribution Width CV 13.2 % (11.6-14.6); RBC Distribution Width SD 42.9 fl (35.1-43.9); Red Blood Count 3.69 M/mm3 (4.6-6.2); White Blood Count 6.2 K/mm3 (4.4-11.0)
[2022-10-07 11:01] LABS: Anion Gap 6 (5-15); BUN 19 mg/dL (7-18); BUN/Creat Ratio 13.1 RATIO (10-20); Calcium,Total 8.1 mg/dL (8.5-10.1); Chloride 101 mmol/L (98-107); Creatinine, Serum 1.45 mg/dL (0.70-1.30); EST Glomerular Filtration Rate 50 mL/min (>60); Est Glom Filt Rate - Afr Amer 61 mL/min (>60); Glucose 79 mg/dL (74-106); Potassium 4.6 mmol/L (3.5-5.1); Sodium Level 133 mmol/L (136-145)
== END ==
LOC: OLS.WCC 05:00
PROVIDERS: PCP Family Medicine; Visit Provider Family Medicine
DX: I11.0 Hypertensive heart disease with heart failure (principal); I50.9 Heart failure, unspecified; E11.9 Type 2 diabetes mellitus without complications
CPT/HCPCS: 36415; 80048; 85027

== ENCOUNTER → 2022-11-02 | Outpatient (REF) | payer MEDICARE, MEDICAID, SELFPAY ==
[2022-11-02 08:58] LABS: Hemoglobin 10.2 g/dL (13.0-16.5); Mean Corp Hgb Conc 32.9 g/dL (32-36); Mean Corpuscular Hgb 29.1 pg (27.0-32.0); Mean Corpuscular Volume 88.3 fL (80-94); Mean Platelet Vol. 10.9 fl (6.2-12.0); Platelet Count 230 K/mm3 (150-450); RBC Distribution Width CV 12.9 % (11.6-14.6); RBC Distribution Width SD 41.5 fl (35.1-43.9); Red Blood Count 3.51 M/mm3 (4.6-6.2); White Blood Count 5.9 K/mm3 (4.4-11.0)
[2022-11-02 09:19] LABS: Anion Gap 4 (5-15); BUN 15 mg/dL (7-18); BUN/Creat Ratio 10.5 RATIO (10-20); Chloride 98 mmol/L (98-107); Creatinine, Serum 1.43 mg/dL (0.70-1.30); EST Glomerular Filtration Rate 51 mL/min (>60); Est Glom Filt Rate - Afr Amer 62 mL/min (>60); Glucose 146 mg/dL (74-106); Potassium 4.1 mmol/L (3.5-5.1); Sodium Level 131 mmol/L (136-145)
== END ==
LOC: OLS.WCC 05:00
PROVIDERS: PCP Family Medicine; Visit Provider Family Medicine
DX: I11.0 Hypertensive heart disease with heart failure (principal); I50.9 Heart failure, unspecified; E11.9 Type 2 diabetes mellitus without complications
CPT/HCPCS: 36415; 80048; 85027

== ENCOUNTER → 2022-12-02 | Outpatient (REF) | payer MEDICARE, MEDICAID, SELFPAY ==
[2022-12-02 08:22] LABS: Vitamin B12 1096 pg/mL (211-911)
[2022-12-02 08:25] LABS: Anion Gap 4 (5-15); BUN 20 mg/dL (7-18); Calcium,Total 8.3 mg/dL (8.5-10.1); Chloride 99 mmol/L (98-107); Cholesterol 132 mg/dL (200); Creatinine, Serum 1.54 mg/dL (0.70-1.30); EST Glomerular Filtration Rate 47 mL/min (>60); Est Glom Filt Rate - Afr Amer 57 mL/min (>60); Glucose 103 mg/dL (74-106); High Density Lipoprotein 46 mg/dL; Potassium 4.2 mmol/L (3.5-5.1); Sodium Level 133 mmol/L (136-145); Thyroid Stim Hormone (TSH) 1.12 uIU/mL (0.358-3.74); Triglycerides 81 mg/dL; Very Low Density Lipoprotein 16 mg/dL (5-40)
[2022-12-02 08:39] LABS: Hemoglobin A1c 5.9 % (3.8-5.6)
[2022-12-02 10:29] LABS: Hematocrit 35.2 % (40-54); Hemoglobin 11.5 g/dL (13.0-16.5); Mean Corp Hgb Conc 32.7 g/dL (32-36); Mean Corpuscular Hgb 29.6 pg (27.0-32.0); Mean Corpuscular Volume 90.5 fL (80-94); Mean Platelet Vol. 10.2 fl (6.2-12.0); Platelet Count 278 K/mm3 (150-450); RBC Distribution Width CV 13.2 % (11.6-14.6); RBC Distribution Width SD 43.3 fl (35.1-43.9); Red Blood Count 3.89 M/mm3 (4.6-6.2); White Blood Count 6.2 K/mm3 (4.4-11.0)
== END ==
LOC: OLS.WCC 05:00
PROVIDERS: PCP Family Medicine; Visit Provider Family Medicine
DX: I11.0 Hypertensive heart disease with heart failure (principal); I50.9 Heart failure, unspecified; E11.9 Type 2 diabetes mellitus without complications; E78.5 Hyperlipidemia, unspecified; E03.9 Hypothyroidism, unspecified
CPT/HCPCS: 36415; 80048; 80061; 82607; 83036; 84443; 85027

== ENCOUNTER → 2023-01-01 | Outpatient (REF) | payer MEDICARE, MEDICAID, SELFPAY ==
[2023-01-01 07:32] LABS: Hematocrit 33.8 % (40-54); Mean Corp Hgb Conc 32.5 g/dL (32-36); Mean Corpuscular Hgb 29.4 pg (27.0-32.0); Mean Corpuscular Volume 90.4 fL (80-94); Mean Platelet Vol. 10.3 fl (6.2-12.0); Platelet Count 225 K/mm3 (150-450); RBC Distribution Width CV 13.6 % (11.6-14.6); RBC Distribution Width SD 44.6 fl (35.1-43.9); Red Blood Count 3.74 M/mm3 (4.6-6.2); White Blood Count 6.2 K/mm3 (4.4-11.0)
[2023-01-01 07:43] LABS: Anion Gap 2 (5-15); BUN 19 mg/dL (7-18); BUN/Creat Ratio 11.7 RATIO (10-20); Calcium,Total 8.3 mg/dL (8.5-10.1); Chloride 101 mmol/L (98-107); Creatinine, Serum 1.63 mg/dL (0.70-1.30); EST Glomerular Filtration Rate 44 mL/min (>60); Est Glom Filt Rate - Afr Amer 53 mL/min (>60); Glucose 95 mg/dL (74-106); Potassium 4.4 mmol/L (3.5-5.1); Sodium Level 134 mmol/L (136-145)
== END ==
LOC: OLS.WCC 05:00
PROVIDERS: PCP Family Medicine; Visit Provider Family Medicine
DX: I50.9 Heart failure, unspecified (principal); E11.9 Type 2 diabetes mellitus without complications
CPT/HCPCS: 36415; 80048; 85027

== ENCOUNTER → 2023-03-03 | Outpatient (REF) | payer MEDICARE, MEDICAID, SELFPAY ==
[2023-03-03 08:56] LABS: Hematocrit 32.8 % (40-54); Hemoglobin 10.4 g/dL (13.0-16.5); Mean Corp Hgb Conc 31.7 g/dL (32-36); Mean Corpuscular Hgb 28.7 pg (27.0-32.0); Mean Corpuscular Volume 90.4 fL (80-94); Mean Platelet Vol. 10.7 fl (6.2-12.0); Platelet Count 233 K/mm3 (150-450); Red Blood Count 3.63 M/mm3 (4.6-6.2); White Blood Count 5.7 K/mm3 (4.4-11.0)
[2023-03-03 09:17] LABS: Anion Gap 2 (5-15); BUN 15 mg/dL (7-18); BUN/Creat Ratio 9.4 RATIO (10-20); Calcium,Total 8.4 mg/dL (8.5-10.1); Chloride 103 mmol/L (98-107); EST Glomerular Filtration Rate 45 mL/min (>60); Est Glom Filt Rate - Afr Amer 54 mL/min (>60); Glucose 81 mg/dL (74-106); Potassium 4.2 mmol/L (3.5-5.1); Sodium Level 136 mmol/L (136-145)
== END ==
LOC: OLS.WCC 05:00
PROVIDERS: PCP Family Medicine; Visit Provider Family Medicine
DX: I11.0 Hypertensive heart disease with heart failure (principal); I50.9 Heart failure, unspecified; E11.9 Type 2 diabetes mellitus without complications
CPT/HCPCS: 36415; 80048; 85027

== ENCOUNTER → 2023-06-03 | Outpatient (REF) | payer MEDICARE, MEDICAID, SELFPAY ==
[2023-06-03 07:33] LABS: Hemoglobin 11.6 g/dL (13.0-16.5); Mean Corp Hgb Conc 32.2 g/dL (32-36); Mean Platelet Vol. 10.9 fl (6.2-12.0); Platelet Count 239 K/mm3 (150-450); RBC Distribution Width CV 13.9 % (11.6-14.6); RBC Distribution Width SD 45.4 fl (35.1-43.9); White Blood Count 6.8 K/mm3 (4.4-11.0)
[2023-06-03 08:01] LABS: Anion Gap 3 (5-15); BUN 18 mg/dL (7-18); BUN/Creat Ratio 11.8 RATIO (10-20); Calcium,Total 8.1 mg/dL (8.5-10.1); Chloride 100 mmol/L (98-107); Cholesterol 132 mg/dL (200); Creatinine, Serum 1.53 mg/dL (0.70-1.30); EST Glomerular Filtration Rate 47 mL/min (>60); Est Glom Filt Rate - Afr Amer 57 mL/min (>60); Glucose 85 mg/dL (74-106); High Density Lipoprotein 51 mg/dL; Potassium 4.3 mmol/L (3.5-5.1); Sodium Level 136 mmol/L (136-145); Thyroid Stim Hormone (TSH) 2.12 uIU/mL (0.358-3.74); Triglycerides 81 mg/dL; Very Low Density Lipoprotein 16 mg/dL (5-40)
[2023-06-03 09:06] LABS: Vitamin B12 1192 pg/mL (211-911)
[2023-06-03 09:10] LABS: Hemoglobin A1c 5.9 % (3.8-5.6)
== END ==
LOC: OLS.WCC 05:00
PROVIDERS: PCP Family Medicine; Visit Provider Family Medicine
DX: I11.0 Hypertensive heart disease with heart failure (principal); I50.9 Heart failure, unspecified; E11.9 Type 2 diabetes mellitus without complications; E78.5 Hyperlipidemia, unspecified; E03.9 Hypothyroidism, unspecified
CPT/HCPCS: 36415; 80048; 80061; 82607; 83036; 84443; 85027

== ENCOUNTER → 2023-09-03 | Outpatient (REF) | payer MEDICARE, MEDICAID, SELFPAY ==
[2023-09-03 09:36] LABS: Hematocrit 29.2 % (40-54); Hemoglobin 9.2 g/dL (13.0-16.5); Mean Corp Hgb Conc 31.5 g/dL (32-36); Mean Corpuscular Hgb 28.6 pg (27.0-32.0); Mean Corpuscular Volume 90.7 fL (80-94); Mean Platelet Vol. 10.7 fl (6.2-12.0); Platelet Count 244 K/mm3 (150-450); RBC Distribution Width CV 13.3 % (11.6-14.6); Red Blood Count 3.22 M/mm3 (4.6-6.2); White Blood Count 6.3 K/mm3 (4.4-11.0)
--- OUTSIDE RECORDS SUMMARY | 2023-09-03 09:43 | XMS RPT_ITS | CCD ---
Author Name Unknown Address [address] [place] [address] Organization [facility] Care Team Providers Care Telecommunications Field Engineer Name Role Phone Aura Sky MD Primary Care Provider [phone] ESCOBAR JORDAN JR Attending Unavaila ble AURA SKY Referring Unavailable AURA SKY Primary Care Unavailable AURA SKY Referring AURA Downey Primary Care Unavailable ELENO ERWIN Attending Unavailabl e Allergies Allergy Classification Reported Allergen(s) Allergy Type Date of Onset Reaction(s) Facility (3 sources) hydroCHLOROthiazide / Triamterene; Translations: [TRIAMTERENE-HYDROCHLOR OTHIAZID] Drug Allergy 04-17-20 16 Other: See Comments [facility] Work Phone: Medications Completed/Discontinued Medications Medication Drug Class(es) Dates Sig (Normalized) Sig (Original) amLODIPine 10 mg oral tablet (2 sources) Dihydropyridine Calcium Channel Octaviano Start: 12-27-2015 take 1 tablet by mouth once daily amLODIPine (NORVASC) 10 mg tablet Take 1 tablet by mouth once daily. 30 tablet 5 12/27/2015 Active Problems Active Problems Problem Classification Problem Date Documented Date Episodic/Chronic Diabetes mellitus with complications (2 sources) Type 2 diabetes mellitus; Translations: [Type 2 diabetes, uncontrolled, with neuropathy] Onset: 05-22-2015 06-12-2015 Chronic Esophageal disorders (2 sources) Gastroesophageal reflux disease without esophagitis; Translations: [Gastro-esophageal reflux disease without esophagitis] Onset: 06-12-2015 06-12-2015 Chronic Essential hypertension (2 sources) Essential hypertension; Translations: [Essential (primary) hypertension] Onset: 06-12-2015 06-12-2015 Chronic Genitourinary symptoms and ill-defined conditions (2 sources) Retention of urine; Translations: [Retention of urine, unspecified] Episodic Hyperplasia of prostate (1 source) Benign prostatic hypertrophy with outflow obstruction; Translations: [Benign prostatic hyperplasia with lower urinary tract symptoms] Chronic Mood disorders (2 sources) Moderate depressed bipolar I disorder; Translations: [Bipolar disorder, current episode depressed, moderate] Onset: 03-11-2015 08-04-2021 Chronic Schizophrenia and other psychotic disorders (2 sources) Catatonic schizophrenia; 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] Onset: 03-11-2015 06-12-2015 Chronic Thyroid disorders (2 sources) Acquired hypothyroidism; Translations: [Hypothyroidism, unspecified] Onset: 10-10-2015 10-10-2015 Chronic Past or Other Problems Problem Classification Problem Date Documented Da te Episodic/Chronic Deficiency and other anemia (2 sources) Anemia; Translations: [Anemia, unspecified] Onset: 01-25-2016 01-25-2016 Episodic Mycoses (2 sources) Onychomycosis due to dermatophyte ; Translations: [Tinea unguium] Onset: 11-16-2005 06-12-2015 Episodic Noninfectious gastroenteritis (2 sources) Chronic diarrhea; Translations: [Noninfective gastroenteritis and colitis, unspecified] Onset: 06-12-2015 06-12-2015 Episodic Other gastrointestinal disorders (2 sources) Incontinence of feces; Translations: [Full incontinence of feces] Onset: 10-10-2015 10-10-2015 Episodic Other screening for suspected conditions (not mental disorders or infectious disease) (2 sources) Patient encounter status; Translations: [Encounter for screening for malignant neoplasm of prostate] Onset: 02-21-2016 02-21-2016 Episodic Residual codes; unclassified (2 sources) Bilateral lower limb edema; Translations: [Localized edema] Onset: 12-20-2015 12-20-2015 Episodic Results Test Name Value Interpretation Reference Range Facil ity Vital Signs Date Time Vital Sign Value Performing Clinician Garfield enriquez 06-02-2022 09:00-0400 Body height 167.6 cm Escobar Jordan Jr., MD Work Phone: [facility] 06-02-2022 09:00-0400 Body weight 98.97 kg Escobar Jordan Jr., MD Work Phone: [facility] 04-10-2022 09:00-0400 Body height 167.6 cm Eleno Erwin MD Work Phone: [facility] 04-10-2022 09:00-0400 Body weight 95.98 kg Eleno Erwin MD Work Phone: [facility] Encounters Encounter Date Encounter Type Care Provider Facility Start: 06-02-2022 End: 06-02-2022 ambulatory ESCOBAR JORDAN JR Facility:[facility] Start: 06-02-2022 End: 06-02-2022 Patient encounter procedure Escobar Jordan MD Work Phone: Urology Procedures Date Procedure Procedure Detail Performing Clinician Start: 02-21-2016 Adult depression screening assessment Eleno Erwin MD Work Phone: Plan of Treatment Date Care Activity Detail Author Start: 10-09-2025 Urine microalbumin profile DTA P,TDAP,TD (2 - Td or Tdap) [facility] Start: 04-09-2022 Influenza vaccination INFLUENZA (#1) [facility] Start: 09-20-2021 COVID-19 VACCINE (4 - Booster for Pfizer series) COVID-19 VACCINE (4 - Booster for Pfizer series) [facility] Start: 08-09-2021 ADVANCE DIRECTIVE DISCUSSION ADVANCE DIRECTIVE DISCUSSION [facility] Start: 08-09-2021 DEPRESSION ASSESSMENT DEPRESSION ASS ESSMENT [facility] Start: 07-15-2021 COVID-19 VACCINE (4 - Booster for Pfizer series) COVID-19 VACCINE (4 - Booster for Pfizer series) [facility] Start: 02-20-2017 Adult depression scr eening assessment DEPRESSION SCREENING [facility] Start: 10-03-2016 Hepatitis B screening URINE AL BUMIN:CREATININE RATIO [facility] Start: 10-03-2016 Hepatitis B surface antibody level LDL CHOLESTEROL [facility] Start: 06-19-2016 Hemoglobin A1c/Hemoglobin.total in Blood HBA1C [facility] Start: 06-12-2016 3 comp foot exam completed DIABETIC FOOT EXAM [facility] Start: 06-12-2016 PNEUMOCOCCAL: 65+ (2 - PPSV23 if available, else PCV20) PNEUMOCOCCAL: 65+ (2 - PPSV23 if available, else PCV20) [facility] Start: 06-12-2016 PNEUMOCOCCAL: 65+ (2 - PPSV23 or PCV20) PNEUMOCOCCAL: 65+ (2 - PPSV23 or PCV20) [facility] Start: 1995 SHINGRIX VACCINE (1 of 2) SMITH GRIX VACCINE (1 of 2) [facility] Start: 1963 ANNUAL PCP TEAM TRIAL MANAGER SAVANNA DISEASE VISIT ANNUAL PCP TEAM CHRONIC DISEASE VISIT [facility] Start: 1963 BP CONTROLLED (<130/80) BP CONTROLLE D (<130/80) [facility] Start: 1963 HEPATITIS C SCREENING HEPATITIS C SC REENING [facility] Start: 1955 Hepatitis C antibody , confirmatory test DILATED RETINAL EXAM [facility] Immunizations Immunization Date Immunization Notes Care Provider Fa francia 10-10-2015 tetanus toxoid, reduced diphtheria toxoid, and acellular pertussis vaccine, adsorbed Eleno Erwin MD Work Phone: [facility] Work Phone: 06-12-2015 influenza, injectable, quadrivalent, contains preservative Eleno Erwin MD Work Phone: [facility] Work Phone: 06-12-2015 pneumococcal conjugate vaccine, 13 valent Eleno Erwin MD Work Phone: [facility] Work Phone: Payers Date Payer Category Payer Medicaid [facility] MEDICAID [facility] MEDICAID [id number] 2014-Present [phone] [address] [place] [address] Medicaid [id number] [facility] MEDICARE [facility] MEDICARE [id number] 2014-Present [phone] [address] [place] [address] Medicare [id number] 2014 Medicare [id number] Social History Date Type Detail Facility Start: 02-26-2016 [facility] Start: 02-26-2016 Tobacco use and exposure Smoke less tobacco non-user [facility] Start: 04-10-2022 End: 06-02-2022 Alcohol intake Current non-drinker of alcohol (finding) [facility] Start: 1945 Sex Assigned At Not on file [facility] Start: 03-31-2022 End: 06-02-2022 Exposure to SARS-CoV-2 (event) Not sure [facility] Medical Equipment Procedure Code Equipment Code Equipment Origin al Text Equipment Identifier Dates Start: 12-23-2015 Progress note 06-02-2022 Note Date & Type Note Facility 06-02-2022 Note HNO ID: [id number] Author: Escobar Jordan Jr., MD Service: ? Author Type: Physician Type: Progress Notes Filed: 06/02/2022 9:14 AM Note Text: ESTABLISHED PATIENT OFFICE VISIT HPI Clifford Welch is a 76 year old male who presents with history of chronic urinary retention. Has had urethral york for 2 years. It is causing him pain. Interested in suprapubic tube. No fever. LAB: Creatinine Date Value Ref Range Status 08/28/2016 1.21 0.73 - 1.22 mg/dL Final PSA (ng/mL) Date Value 03/19/2016 1.23 Glucose, Urine (mg/dL) Date Value 01/09/2016 2,000 Bilirubin, Urine (no units) Date Value 01/09/2016 neg Ketones, Urine (no units) Date Value 01/09/2016 neg Specific Donnellson, Ur (no units) Date Value 01/09/2016 1.010 Hemoglobin/Blood,Ur (no units) Date Value 01/09/2016 neg pH, Urine (no units) Date Value 01/09/2016 6.5 Protein, Urine (mg/dL) Date Value 01/09/2016 neg Urobilinogen, Urine (EU) Date Value 01/09/2016 0.2 Nitrites (no units) Date Value 01/09/2016 neg Leukocytes (no units) Date Value 01/09/2016 neg Color/Appearance (comment:) Date Value 01/09/2016 clear yellow MEDICATIONS: amLODIPine (NORVASC) 10 mg tablet Take 1 tablet by mouth once daily. BISACODYL RECTAL by RECTAL route as needed (constipation). ergocalciferol, vitamin D2, (VITAMIN D2 ORAL) Take by mouth. ferrous sulfate 325 mg (65 mg iron) tablet Take 325 mg by mouth daily with breakfast. tamsulosin (FLOMAX) 0.4 mg Take 0.4 mg by mouth twice daily. hydrALAZINE (APRESOLINE) 25 mg tablet Take 25 mg by mouth twice daily. cyanocobalamin, vitamin B-12, 500 mcg chew Take by mouth. cyclobenzaprine (FLEXERIL) 5 mg tablet Take 5 mg by mouth three times daily as needed. insulin glargine,hum.rec.anlog (LANTUS SUBCUTANEOUS) Inject subcutaneously. furosemide (LASIX) 20 mg tablet Take 20 mg by mouth twice daily. meloxicam (MOBIC) 7.5 mg tablet Take 7.5 mg by mouth once daily. potassium chloride (KLOR-CON) 20 mEq packet Take by mouth twice daily. risperiDONE (RISPERDAL) 2 mg tablet Take 2 mg by mouth twice daily. QUEtiapine (SEROQUEL) 100 mg tablet Take 100 mg by mouth twice daily. QUEtiapine (SEROQUEL) 300 mg tablet Take 300 mg by mouth daily at bedtime. OXcarbazepine (TRILEPTAL) 600 mg tablet Take 600 mg by mouth twice daily. hydrOXYzine pamoate (VISTARIL) 25 mg capsule Take 25 mg by mouth three times daily as needed. atorvastatin (LIPITOR) 40 mg tablet Take 40 mg by mouth once daily. levothyroxine (SYNTHROID) 50 mcg tablet Take 50 mcg by mouth once daily. SEROQUEL XR 50 mg Tb24 Take two tablets by mouth at bedtime. QUEtiapine XR (SEROQUEL XR) 300 mg 24 hr tablet Take 1 tablet by mouth daily at bedtime. omeprazole (PRILOSEC) 20 mg capsule Take 1 capsule by mouth twice daily. SAXagliptin (ONGLYZA) 5 mg tab Take 1 tablet by mouth once daily. ranitidine (ZANTAC) 150 mg tablet Take 1 tablet by mouth once daily. metFORMIN ER (GLUCOPHAGE XR) 500 mg 24 hr tablet Take 1 tablet by mouth twice daily with breakfast and dinner pioglitazone (ACTOS) 15 mg tablet Take 1 tablet by mouth once daily. busPIRone (BUSPAR) 10 mg tablet Take 1 tablet by mouth twice daily. simvastatin (ZOCOR) 80 mg tablet Take 1 tablet by mouth daily at bedtime. blood sugar diagnostic ([employer] ULTRA TEST) test strip Check blood sugars once a day. Levothyroxine 50 mcg cap Take 1 capsule by mouth once daily. lisinopril (ZESTRIL, PRINIVIL) 40 mg tablet Take 1 tablet by mouth once daily. lancets (SOLUS V2 LANCETS) 28 gauge [facility] Check blood sugar once daily. Dx: E11.40. glipiZIDE (GLUCOTROL) 10 mg tablet Take 2 tablets by mouth once daily. divalproex DR (DEPAKOTE) 500 mg EC tablet Take 1,000 mg by mouth daily at bedtime. REVIEW OF SYSTEMS Review of Systems Constitutional: Negative. Respiratory: Negative. Cardiovascular: Negative. Gastrointestinal: Negative. Genitourinary: Negative. Skin: Negative. Neurological: Negative. Psychiatric/Behavioral: Negative. 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 Krause at the [facility] center Type 2 diabetes, uncontrolled, with neuropathy 05/22/2015 FAMILY HISTORY Problem Relation Age of Onset Diabetes Mother Hypertension Mother Arthritis Mother Hypertension Brother Hypertension Sister SOCIAL HISTORY Social History Tobacco Use Smoking status: Never Smokeless tobacco: Never Substance Use Topics Alcohol use: No Drug use: No PHYSICAL EXAMINATION General appearance: Well appearing, alert, in no acute distress, and well-hydrated, well nourished Skin: (more content not included)... [facility] History of Present illness Narrative 06-02-2022 Escobar Jordan Jr., MD - 06/02/2022 9:03 AM EDT Note Date & Type Note Facility 06-02-2022 History of Presen t illness Narrative ESTABLISHED PATIENT OFFICE VISIT HPI Clifford Welch is a 76 year old male who presents with history of chronic urinary retention. Has had urethral york for 2 years. It is causing him pain. Interested in suprapubic tube. No fever. LAB: Creatinine Date Value Ref Range Status 08/28/2016 1.21 0.73 - 1.22 mg/dL Final PSA (ng/mL) Date Value 03/19/2016 1.23 Glucose, Urine (mg/dL) Date Value 01/09/2016 2,000 Bilirubin, Urine (no units) Date Value 01/09/2016 neg Ketones, Urine (no units) Date Value 01/09/2016 neg Specific Donnellson, Ur (no units) Date Value 01/09/2016 1.010 Hemoglobin/Blood,Ur (no units) Date Value 01/09/2016 neg pH, Urine (no units) Date Value 01/09/2016 6.5 Protein, Urine (mg/dL) Date Value 01/09/2016 neg Urobilinogen, Urine (EU) Date Value 01/09/2016 0.2 Nitrites (no units) Date Value 01/09/2016 neg Leukocytes (no units) Date Value 01/09/2016 neg Color/Appearance (comment:) Date Value 01/09/2016 clear yellow MEDICATIONS: amLODIPine (NORVASC) 10 mg tablet Take 1 tablet by mouth once daily. BISACODYL RECTAL by RECTAL route as needed (constipation). ergocalciferol, vitamin D2, (VITAMIN D2 ORAL) Take by mouth. ferrous sulfate 325 mg (65 mg iron) tablet Take 325 mg by mouth daily with breakfast. tamsulosin (FLOMAX) 0.4 mg Take 0.4 mg by mouth twice daily. hydrALAZINE (APRESOLINE) 25 mg tablet Take 25 mg by mouth twice daily. cyanocobalamin, vitamin B-12, 500 mcg chew Take by mouth. cyclobenzaprine (FLEXERIL) 5 mg tablet Take 5 mg by mouth three times daily as needed. insulin glargine,hum.rec.anlog (LANTUS SUBCUTANEOUS) Inject subcutaneously. furosemide (LASIX) 20 mg tablet Take 20 mg by mouth twice daily. meloxicam (MOBIC) 7.5 mg tablet Take 7.5 mg by mouth once daily. potassium chloride (KLOR-CON) 20 mEq packet Take by mouth twice daily. risperiDONE (RISPERDAL) 2 mg tablet Take 2 mg by mouth twice daily. QUEtiapine (SEROQUEL) 100 mg tablet Take 100 mg by mouth twice daily. QUEtiapine (SEROQUEL) 300 mg tablet Take 300 mg by mouth daily at bedtime. OXcarbazepine (TRILEPTAL) 600 mg tablet Take 600 mg by mouth twice daily. hydrOXYzine pamoate (VISTARIL) 25 mg capsule Take 25 mg by mouth three times daily as needed. atorvastatin (LIPITOR) 40 mg tablet Take 40 mg by mouth once daily. levothyroxine (SYNTHROID) 50 mcg tablet Take 50 mcg by mouth once daily. SEROQUEL XR 50 mg Tb24 Take two tablets by mouth at bedtime. QUEtiapine XR (SEROQUEL XR) 300 mg 24 hr tablet Take 1 tablet by mouth daily at bedtime. omeprazole (PRILOSEC) 20 mg capsule Take 1 capsule by mouth twice daily. SAXagliptin (ONGLYZA) 5 mg tab Take 1 tablet by mouth once daily. ranitidine (ZANTAC) 150 mg tablet Take 1 tablet by mouth once daily. metFORMIN ER (GLUCOPHAGE XR) 500 mg 24 hr tablet Take 1 tablet by mouth twice daily with breakfast and dinner pioglitazone (ACTOS) 15 mg tablet Take 1 tablet by mouth once daily. busPIRone (BUSPAR) 10 mg tablet Take 1 tablet by mouth twice daily. simvastatin (ZOCOR) 80 mg tablet Take 1 tablet by mouth daily at bedtime. blood sugar diagnostic ([employer] ULTRA TEST) test strip Check blood sugars once a day. Levothyroxine 50 mcg cap Take 1 capsule by mouth once daily. lisinopril (ZESTRIL, PRINIVIL) 40 mg tablet Take 1 tablet by mouth once daily. lancets (SOLUS V2 LANCETS) 28 gauge [facility] Check blood sugar once daily. Dx: E11.40. glipiZIDE (GLUCOTROL) 10 mg tablet Take 2 tablets by mouth once daily. divalproex DR (DEPAKOTE) 500 mg EC tablet Take 1,000 mg by mouth daily at bedtime. REVIEW OF SYSTEMS Review of Systems Constitutional: Negative. Respiratory: Negative. Cardiovascular: Negative. Gastrointestinal: Negative. Genitourinary: Negative. Skin: Negative. Neurological: Negative. Psychiatric/Behavioral: Negative. 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 Krause at the [facility] center Type 2 diabetes, uncontrolled, with neuropathy 05/22/2015 FAMILY HISTORY Problem Relation Age of Onset Diabetes Mother Hypertension Mother Arthritis Mother Hypertension Brother Hypertension Sister SOCIAL HISTORY Social History Tobacco Use Smoking status: Never Smokeless tobacco: Never Substance Use Topics Alcohol use: No Drug use: No PHYSICAL EXAMINATION General appearance: Well appearing, alert, in no acute distress, and well-hydrated, well nourished Skin: Skin color, texture, turgor normal, no suspicious rashes or lesions Respiratory:+ effort Cardiovascular: Not examined GI: Normal abdominal exam, Abdomen soft, non-tender. No masses, organomegaly Musculoskeletal: Negative Neuro: Negative Genitourinary: not examined Impression: (R33.9) Urinary retention (primary encounter diagnosis) Plan: Cystoscopy, suprapubic tube placement All r/b/a of surgery discussed, infection, bleeding, damage to nearby structures - including bowel, repeat surgery, stent pain/symptoms, , heart attack, stroke, deep vein thrombosis, pulmonary embolus. Patient verbalized understanding and agrees to proceed. Escobar Jordan Jr, MD 06/02/2022 documented in this encounter [facility] Progress note 04-10-2022 Note Date & Type Note Facility 04-10-2022 Note HNO ID: [id number] Author: Eleno Erwin MD Service: ? Author Type: Physician Type: Progress Notes Filed: 04/10/2022 10:03 AM Note Text: [facility] UROLOGY ESTABLISHED PATIENT CLINIC NOTE PATIENT INFO: Clifford Welch 76 year old PCP: Aura Sky MD UROLOGY DIAGNOSES: 1. Urine retention - ICD9: 788.20, ICD10: R33.9 (primary diagnosis) 2. Benign prostatic hyperplasia with urinary retention - ICD9: 600.01, 788.20, ICD10: N40.1, R33.8 CHIEF COMPLAINT: Requesting SPT HPI: Clifford Welch returns for continuing evaluation and management. This is a 76-year-old male with history of BPH and chronic urinary retention who is on indwelling [place] catheter for the last 2 years. Patient lives in a fdc facility and has his catheter changed every 4 weeks. Patient complains of having chronic pain with his catheter and is requesting suprapubic catheter placement. Patient does have some gait instability and uses a wheeled walker while ambulating. PMHx/PSHx: see above, otherwise unchanged Rx: reviewed and unchanged ROS: see above, otherwise unchanged Labs: None Imaging: None MEDICATIONS: Current Outpatient Medications Medication Sig BISACODYL RECTAL by RECTAL route as needed (constipation). ergocalciferol, vitamin D2, (VITAMIN D2 ORAL) Take by mouth. ferrous sulfate 325 mg (65 mg iron) tablet Take 325 mg by mouth daily with breakfast. tamsulosin (FLOMAX) 0.4 mg Take 0.4 mg by mouth twice daily. hydrALAZINE (APRESOLINE) 25 mg tablet Take 25 mg by mouth twice daily. cyanocobalamin, vitamin B-12, 500 mcg chew Take by mouth. cyclobenzaprine (FLEXERIL) 5 mg tablet Take 5 mg by mouth three times daily as needed. insulin glargine,hum.rec.anlog ([employer] SUBCUTANEOUS) Inject subcutaneously. furosemide (LASIX) 20 mg tablet Take 20 mg by mouth twice daily. meloxicam (MOBIC) 7.5 mg tablet Take 7.5 mg by mouth once daily. potassium chloride (KLOR-CON) 20 mEq packet Take by mouth twice daily. risperiDONE (RISPERDAL) 2 mg tablet Take 2 mg by mouth twice daily. QUEtiapine (SEROQUEL) 100 mg tablet Take 100 mg by mouth twice daily. QUEtiapine (SEROQUEL) 300 mg tablet Take 300 mg by mouth daily at bedtime. OXcarbazepine (TRILEPTAL) 600 mg tablet Take 600 mg by mouth twice daily. hydrOXYzine pamoate (VISTARIL) 25 mg capsule Take 25 mg by mouth three times daily as needed. atorvastatin (LIPITOR) 40 mg tablet Take 40 mg by mouth once daily. levothyroxine (SYNTHROID) 50 mcg tablet Take 50 mcg by mouth once daily. SEROQUEL XR 50 mg Tb24 Take two tablets by mouth at bedtime. QUEtiapine XR (SEROQUEL XR) 300 mg 24 hr tablet Take 1 tablet by mouth daily at bedtime. omeprazole (PRILOSEC) 20 mg capsule Take 1 capsule by mouth twice daily. SAXagliptin (ONGLYZA) 5 mg tab Take 1 tablet by mouth once daily. ranitidine (ZANTAC) 150 mg tablet Take 1 tablet by mouth once daily. metFORMIN ER (GLUCOPHAGE XR) 500 mg 24 hr tablet Take 1 tablet by mouth twice daily with breakfast and dinner pioglitazone (ACTOS) 15 mg tablet Take 1 tablet by mouth once daily. busPIRone (BUSPAR) 10 mg tablet Take 1 tablet by mouth twice daily. simvastatin (ZOCOR) 80 mg tablet Take 1 tablet by mouth daily at bedtime. blood sugar diagnostic ([employer] ULTRA TEST) test strip Check blood sugars once a day. Levothyroxine 50 mcg cap Take 1 capsule by mouth once daily. lisinopril (ZESTRIL, PRINIVIL) 40 mg tablet Take 1 tablet by mouth once daily. amLODIPine (NORVASC) 10 mg tablet Take 1 tablet by mouth once daily. lancets (SOLUS V2 LANCETS) 28 gauge misc Check blood sugar once daily. Dx: E11.40. glipiZIDE (GLUCOTROL) 10 mg tablet Take 2 tablets by mouth once daily. divalproex DR (DEPAKOTE) 500 mg EC tablet Take 1,000 mg by mouth daily at bedtime. No current facility-administered medications for this visit. PHYSICAL EXAM: Ht 167.6 cm (5' 6 ) Wt 96 kg (211 lb 9.6 oz) BMI 34.15 kg/m? Body mass index is 34.15 kg/m?. General: Well masculinized, well nourished male Psych: euthymic, NAD, very talkative Neuro: AANDOx3 Abdominal: Obese, soft abdomen, normal BS Inguinal: No lesions, adenopathy, or hernias Phallus: normal, uncircumcised, no lesions Meatus: orthotopic, patent, no discharge Scrotum: no lesions, normal rugae Testes: Descended, nontender, and no masses bilaterally ADITI deferred IMPRESSION/PLAN: 1. Urine retention - ICD9: 788.20, ICD10: R33.9 (primary diagnosis) - Will refer to Dr. Escobar Jordan for SPT placement 2. Benign prostatic hyperplasia with urinary retention - ICD9: 600.01, 788.20, ICD10: N40.1, R33.8 -Remain on tamsulosin Consultation requested by Dr. Aura Sky for an opinion regarding Mr. Welch. My final recommendations will be communicated back to the requesting physician by way of shared Medical record or letter to requesting physician via US mail. Eleno Erwin M.D, MS Associate Staff [facility] and (more content not included)... [facility] History of Present illness Narrative 04-10-2022 Eleno Erwin MD - 04/10/2022 8:58 AM EDT Note Date & Type Note Facility 04-10-2022 History of Presen t illness Narrative Images from the original note were not included. [facility] UROLOGY ESTABLISHED PATIENT CLINIC NOTE PATIENT INFO: Clifford Welch 76 year old PCP: Aura Sky MD UROLOGY DIAGNOSES: 1. Urine retention - ICD9: 788.20, ICD10: R33.9 (primary diagnosis) 2. Benign prostatic hyperplasia with urinary retention - ICD9: 600.01, 788.20, ICD10: N40.1, R33.8 CHIEF COMPLAINT: Requesting SPT HPI: Clifford Welch returns for continuing evaluation and management. This is a 76-year-old male with history of BPH and chronic urinary retention who is on indwelling York catheter for the last 2 years. Patient lives in a [facility] facility and has his catheter changed every 4 weeks. Patient complains of having chronic pain with his catheter and is requesting suprapubic catheter placement. Patient does have some gait instability and uses a wheeled walker while ambulating. PMHx/PSHx: see above, otherwise unchanged Rx: reviewed and unchanged ROS: see above, otherwise unchanged Labs: None Imaging: None MEDICATIONS: Current Outpatient Medications Medication Sig BISACODYL RECTAL by RECTAL route as needed (constipation). ergocalciferol, vitamin D2, (VITAMIN D2 ORAL) Take by mouth. ferrous sulfate 325 mg (65 mg iron) tablet Take 325 mg by mouth daily with breakfast. tamsulosin (FLOMAX) 0.4 mg Take 0.4 mg by mouth twice daily. hydrALAZINE (APRESOLINE) 25 mg tablet Take 25 mg by mouth twice daily. cyanocobalamin, vitamin B-12, 500 mcg chew Take by mouth. cyclobenzaprine (FLEXERIL) 5 mg tablet Take 5 mg by mouth three times daily as needed. insulin glargine,hum.rec.anlog (LANTUS SUBCUTANEOUS) Inject subcutaneously. furosemide (LASIX) 20 mg tablet Take 20 mg by mouth twice daily. meloxicam (MOBIC) 7.5 mg tablet Take 7.5 mg by mouth once daily. potassium chloride (KLOR-CON) 20 mEq packet Take by mouth twice daily. risperiDONE (RISPERDAL) 2 mg tablet Take 2 mg by mouth twice daily. QUEtiapine (SEROQUEL) 100 mg tablet Take 100 mg by mouth twice daily. QUEtiapine (SEROQUEL) 300 mg tablet Take 300 mg by mouth daily at bedtime. OXcarbazepine (TRILEPTAL) 600 mg tablet Take 600 mg by mouth twice daily. hydrOXYzine pamoate (VISTARIL) 25 mg capsule Take 25 mg by mouth three times daily as needed. atorvastatin (LIPITOR) 40 mg tablet Take 40 mg by mouth once daily. levothyroxine (SYNTHROID) 50 mcg tablet Take 50 mcg by mouth once daily. SEROQUEL XR 50 mg Tb24 Take two tablets by mouth at bedtime. QUEtiapine XR (SEROQUEL XR) 300 mg 24 hr tablet Take 1 tablet by mouth daily at bedtime. omeprazole (PRILOSEC) 20 mg capsule Take 1 capsule by mouth twice daily. SAXagliptin (ONGLYZA) 5 mg tab Take 1 tablet by mouth once daily. ranitidine (ZANTAC) 150 mg tablet Take 1 tablet by mouth once daily. metFORMIN ER (GLUCOPHAGE XR) 500 mg 24 hr tablet Take 1 tablet by mouth twice daily with breakfast and dinner pioglitazone (ACTOS) 15 mg tablet Take 1 tablet by mouth once daily. busPIRone (BUSPAR) 10 mg tablet Take 1 tablet by mouth twice daily. simvastatin (ZOCOR) 80 mg tablet Take 1 tablet by mouth daily at bedtime. blood sugar diagnostic ([employer] ULTRA TEST) test strip Check blood sugars once a day. Levothyroxine 50 mcg cap Take 1 capsule by mouth once daily. lisinopril (ZESTRIL, PRINIVIL) 40 mg tablet Take 1 tablet by mouth once daily. amLODIPine (NORVASC) 10 mg tablet Take 1 tablet by mouth once daily. lancets (SOLUS V2 LANCETS) 28 gauge misc Check blood sugar once daily. Dx: E11.40. glipiZIDE (GLUCOTROL) 10 mg tablet Take 2 tablets by mouth once daily. divalproex DR (DEPAKOTE) 500 mg EC tablet Take 1,000 mg by mouth daily at bedtime. No current facility-administered medications for this visit. PHYSICAL EXAM: Ht 167.6 cm (5' 6 ) Wt 96 kg (211 lb 9.6 oz) BMI 34.15 kg/m Body mass index is 34.15 kg/m . General: Well masculinized, well nourished male Psych: euthymic, NAD, very talkative Neuro: A&Ox3 Abdominal: Obese, soft abdomen, normal BS Inguinal: No lesions, adenopathy, or hernias Phallus: normal, uncircumcised, no lesions Meatus: orthotopic, patent, no discharge Scrotum: no lesions, normal rugae Testes: Descended, nontender, and no masses bilaterally ADITI deferred IMPRESSION/PLAN: 1. Urine retention - ICD9: 788.20, ICD10: R33.9 (primary diagnosis) - Will refer to Dr. Escobar Jordan for SPT placement 2. Benign prostatic hyperplasia with urinary retention - ICD9: 600.01, 788.20, ICD10: N40.1, R33.8 -Remain on tamsulosin Consultation requested by Dr. Aura Sky for an opinion regarding Mr. Welch. My final recommendations will be communicated back to the requesting physician by way of shared Medical record or letter to requesting physician via US mail. Eleno Erwin M.D, MS Associate Staff [facility] Cc: Dr. Aura Jordan documented in this encounter [facility] Evaluation note Note Date & Type Note Facility documented in this encounter [facility] Evaluation note Note Date & Type Note Facility documented in this encounter [facility] Summary Purpose Family History No Family History Records Found Advance Directives No Advanced Directives Records Found Additional Source Comments Source Comments (unrecognize d section and content) In the event this informatio n is protected by the Federal Confidentiality of Alcohol and Drug Abuse Patient Records regulations: The Federal rules restrict any use of the information to criminally investigate or prosecute any alcohol or drug abuse patient[facility] event this information is protected by the Federal Confidentiality of Alcohol and Drug Abuse Patient Records regulations: The Federal rules restrict any use of the information to criminally investigate or prosecute any alcohol or drug abuse patient.[facility] Reason for Visit (unrecogniz ed section and content) Reason Comments Established Patient Discussion/SPT tube placement Care Teams (unrecognized sec tion and content) Telecommunications Field Engineer Relationship Specialty Start Date End Date Aura Sky MD [address] [place] [address] PCP - General Family Medicine 04/03/22 (unrecognized sect ion and content) No Status Records Found INFORMATION SOURCE (unrecogn ized section and content) FOR RECORDS PERTAINING TO PATIENTS WHO ARE OR HAVE BEEN ENROLLED IN A CHEMICAL DEPENDENCY/SUBSTANCEABUSE PROGRAM, SOME INFORMATION MAY BE OMITTED. This clinical summary was aggregated from multiple sources. Caution should be exercised in using it in the provision of clinical care. This summary normalizes information from multiple sources, and as a consequence, information in this document may materially change the coding, format and clinical context of patient data. In addition, data may be omitted in some cases. CLINICAL DECISIONS SHOULD BE BASED ON THE PRIMARY CLINICAL RECORDS. [employer] [facility]. provides no warranty or guarantee of the accuracy or completeness of information in this document.
[2023-09-03 09:47] LABS: Anion Gap 2 (5-15); BUN 24 mg/dL (7-18); Calcium,Total 8.4 mg/dL (8.5-10.1); Chloride 105 mmol/L (98-107); Creatinine, Serum 1.72 mg/dL (0.70-1.30); EST Glomerular Filtration Rate 41 mL/min (>60); Est Glom Filt Rate - Afr Amer 50 mL/min (>60); Glucose 102 mg/dL (74-106); Potassium 4.4 mmol/L (3.5-5.1); Sodium Level 136 mmol/L (136-145)
== END ==
LOC: OLS.WCC 07:15
PROVIDERS: PCP Family Medicine; Visit Provider Family Medicine
DX: E11.9 Type 2 diabetes mellitus without complications (principal); I11.0 Hypertensive heart disease with heart failure; I50.9 Heart failure, unspecified
CPT/HCPCS: 36415; 80048; 85027

== ENCOUNTER → 2023-09-29 | Outpatient (REF) | payer MEDICARE, MEDICAID, SELFPAY ==
--- OUTSIDE RECORDS SUMMARY | 2023-09-29 04:11 | XMS RPT_ITS | CCD ---
Author Name Unknown Address [address] [place] [address] Organization [facility] Care Team Providers Care Machine Builder Name Role Phone Aura Sky MD Primary Care Provider [phone] ESCOBAR JORDAN JR Attending Unavaila ble AURA SKY Referring Unavailable AURA SKY Primary Care Unavailable AURA SKY Referring AURA Downey Primary Care Unavailable ELENO ERWIN Attending Unavailabl e Allergies Allergy Classification Reported Allergen(s) Allergy Type Date of Onset Reaction(s) Facility (3 sources) hydroCHLOROthiazide / Triamterene; Translations: [TRIAMTERENE-HYDROCHLOR OTHIAZID] Drug Allergy 04-17-20 16 Other: See Comments [facility] Work Phone: Medications Completed/Discontinued Medications Medication Drug [...] cm Escobar Jordan Jr., MD Work Phone: [facility] 06-02-2022 09:00-0400 Body weight 98.97 kg Escobar Jordan Jr., MD Work Phone: [facility] 04-10-2022 09:00-0400 Body height 167.6 cm Eleno Erwin MD Work Phone: [facility] 04-10-2022 09:00-0400 Body weight 95.98 kg Eleno Erwin MD Work Phone: [facility] Encounters Encounter Date Encounter Type Care Provider Facility Start: 06-02-2022 End: 06-02-2022 ambulatory ESCOBAR JORDAN JR Facility:[facility] Start: 06-02-2022 End: 06-02-2022 Patient encounter procedure Escobar Jordan MD Work Phone: Urology Procedures Date Procedure Procedure Detail Performing Clinician Start: 02-21-2016 Adult depression screening assessment Eleno Erwin MD Work Phone: Plan of Treatment Date Care Activity Detail Author Start: 10-09-2025 Urine microalbumin profile DTA P,TDAP,TD (2 - Td or Tdap) [facility] Start: 04-09-2022 Influenza vaccination INFLUENZA (#1) [facility] Start: 09-20-2021 COVID-19 VACCINE (4 - Booster for Pfizer series) COVID-19 VACCINE (4 - Booster for Pfizer series) [facility] Start: 08-09-2021 ADVANCE DIRECTIVE DISCUSSION ADVANCE DIRECTIVE DISCUSSION [facility] Start: 08-09-2021 DEPRESSION ASSESSMENT DEPRESSION ASS ESSMENT [facility] Start: 07-15-2021 COVID-19 VACCINE (4 - Booster for Pfizer series) COVID-19 VACCINE (4 - Booster for Pfizer series) [facility] Start: 02-20-2017 Adult depression scr eening assessment DEPRESSION SCREENING [facility] Start: 10-03-2016 Hepatitis B screening URINE AL BUMIN:CREATININE RATIO [facility] Start: 10-03-2016 Hepatitis B surface antibody level LDL CHOLESTEROL [facility] Start: 06-19-2016 Hemoglobin A1c/Hemoglobin.total in Blood HBA1C [facility] Start: 06-12-2016 3 comp foot exam completed DIABETIC FOOT EXAM [facility] Start: 06-12-2016 PNEUMOCOCCAL: 65+ (2 - PPSV23 if available, else PCV20) PNEUMOCOCCAL: 65+ (2 - PPSV23 if available, else PCV20) [facility] Start: 06-12-2016 PNEUMOCOCCAL: 65+ (2 - PPSV23 or PCV20) PNEUMOCOCCAL: 65+ (2 - PPSV23 or PCV20) [facility] Start: 1995 SHINGRIX VACCINE (1 of 2) SMITH GRIX VACCINE (1 of 2) [facility] Start: 1963 ANNUAL PCP TEAM JIRA ADMINISTRATOR SAVANNA DISEASE VISIT ANNUAL PCP TEAM CHRONIC DISEASE VISIT [facility] Start: 1963 BP CONTROLLED (<130/80) BP CONTROLLE D (<130/80) [facility] Start: 1963 HEPATITIS C SCREENING HEPATITIS C SC REENING [facility] Start: 1955 Hepatitis C antibody , confirmatory test DILATED RETINAL EXAM [facility] Immunizations Immunization Date Immunization Notes Care Provider Fa francia 10-10-2015 tetanus toxoid, reduced diphtheria toxoid, and acellular pertussis vaccine, adsorbed Eleno Erwin MD Work Phone: [facility] Work Phone: 06-12-2015 influenza, injectable, quadrivalent, contains preservative Eleno Erwin MD Work Phone: [facility] Work Phone: 06-12-2015 pneumococcal conjugate vaccine, 13 valent Eleno Erwin MD Work Phone: [facility] Work Phone: Payers Date Payer Category Payer Medicaid [facility] MEDICAID [employer] [facility] MEDICAID [id number] 2014-Present [phone] [address] [place] [address] Medicaid [id number] 2014 Medicare [facility] MEDICARE [employer] ARE [facility] MEDICARE [id number] 2014-Present [phone] [address] [place] [address] Medicare [id number] 2014 Medicare [id number] Social History Date Type Detail Facility [facility]: [facility] Start: 02-26-2016 Tobacco use and exposure Smoke less tobacco non-user [facility] Start: 04-10-2022 End: 06-02-2022 Alcohol intake Current non-drinker of alcohol (finding) [facility] Start: 1945 Sex Assigned At Not on file C [facility] Start: 03-31-2022 End: 06-02-2022 Exposure to SARS-CoV-2 (event) Not sure [facility] Medical Equipment Procedure Code Equipment Code Equipment Origin al Text Equipment Identifier Dates Start: 12-23-2015 Progress note 06-02-2022 Note Date & Type Note Facility 06-02-2022 Note HNO ID: [id number] Author: Escobar Jordan Jr., MD Service: ? Author Type: Physician Type: Progress Notes Filed: 06/02/2022 9:14 AM Note Text: ESTABLISHED PATIENT OFFICE VISIT HPI Clifford Corea is a 76 year old male who [...] (no units) Date Value 01/09/2016 neg Specific [place], Ur (no units) Date Value 01/09/2016 1.010 [...] mouth daily at bedtime. blood sugar diagnostic ([employer] ULTRA TEST) test strip Check blood sugars once a day. Levothyroxine 50 mcg cap Take 1 capsule by mouth once daily. lisinopril (ZESTRIL, PRINIVIL) 40 mg tablet Take 1 tablet by mouth once daily. lancets (SOLUS V2 LANCETS) 28 gauge [facility] Check blood sugar once daily. Dx: E11.40. [...] (HCC) 03/11/[address] Krause at the [facility] center Type 2 diabetes, uncontrolled, with neuropathy [...] well nourished Skin: (more content not included)... [facility] History of Present illness Narrative 06-02-2022 Escobar Jordan Jr., MD - 06/02/2022 9:03 AM EDT Note Date & Type Note Facility 06-02-2022 History of Presen t illness Narrative ESTABLISHED PATIENT OFFICE VISIT HPI Clifford Corea is a 76 year old male who [...] (no units) Date Value 01/09/2016 neg Specific [place], Ur (no units) Date Value 01/09/2016 1.010 [...] mouth daily at bedtime. blood sugar diagnostic ([employer] ULTRA TEST) test strip Check blood sugars once a day. Levothyroxine 50 mcg cap Take 1 capsule by mouth once daily. lisinopril (ZESTRIL, PRINIVIL) 40 mg tablet Take 1 tablet by mouth once daily. lancets (SOLUS V2 LANCETS) 28 gauge [facility] Check blood sugar once daily. Dx: E11.40. [...] (HCC) 03/11/[address] Krause at the [facility] center Type 2 diabetes, uncontrolled, with neuropathy [...] Jr, MD 06/02/2022 documented in this encounter [facility] Progress note 04-10-2022 Note Date & Type Note Facility 04-10-2022 Note HNO ID: [id number] Author: Eleno Erwin MD Service: ? Author Type: Physician Type: Progress Notes Filed: 04/10/2022 10:03 AM Note Text: [facility] UROLOGY ESTABLISHED PATIENT CLINIC NOTE PATIENT INFO: Clifford Corea 76 year old PCP: Aura Sky MD UROLOGY DIAGNOSES: 1. Urine retention - ICD9: 788.20, ICD10: R33.9 (primary diagnosis) 2. Benign prostatic hyperplasia with urinary retention - ICD9: 600.01, 788.20, ICD10: N40.1, R33.8 CHIEF COMPLAINT: Requesting SPT HPI: Clifford Corea returns for continuing evaluation and management. This is a 76-year-old male with history of BPH and chronic urinary retention who is on indwelling York catheter for the last 2 years. Patient lives in a group home facility and has his catheter changed every [...] mouth daily at bedtime. blood sugar diagnostic ([employer] ULTRA TEST) test strip Check blood sugars [...] Aura Sky for an opinion regarding Mr. Corea. My final recommendations will be communicated back to the requesting physician by way of shared Medical record or letter to requesting physician via US mail. Eleno Erwin M.D, MS Associate Staff [facility]rological and (more content not included)... [facility] History of Present illness Narrative 04-10-2022 Eleno Erwin MD - 04/10/2022 8:58 AM EDT Note Date & Type Note Facility 04-10-2022 History of Presen t illness Narrative Images from the original note were not included. [facility] UROLOGY ESTABLISHED PATIENT CLINIC NOTE PATIENT INFO: Clifford Corea 76 year old PCP: Aura Sky MD UROLOGY DIAGNOSES: 1. Urine retention - ICD9: 788.20, ICD10: R33.9 (primary diagnosis) 2. Benign prostatic hyperplasia with urinary retention - ICD9: 600.01, 788.20, ICD10: N40.1, R33.8 CHIEF COMPLAINT: Requesting SPT HPI: Clifford Corea returns for continuing evaluation and management. This is a 76-year-old male with history of BPH and chronic urinary retention who is on indwelling York catheter for the last 2 years. Patient lives in a group home facility and has his catheter changed every [...] mouth daily at bedtime. blood sugar diagnostic ([employer] ULTRA TEST) test strip Check blood sugars [...] Aura Sky for an opinion regarding Mr. Corea. My final recommendations will be communicated back to the requesting physician by way of shared Medical record or letter to requesting physician via US mail. Eleno Erwin M.D, MS Associate Staff [facility] [place] [facility] Cc: Dr. Aura Jordan documented in this encounter [facility] Evaluation note Note Date & Type Note Facility documented in this encounter [facility] Evaluation note Note Date & Type Note Facility documented in this encounter [facility] Summary Purpose Family History No Family History [...] or prosecute any alcohol or drug abuse patient.[facility] the event this information is protected by the Federal Confidentiality of Alcohol and Drug Abuse Patient Records regulations: The Federal rules restrict any use of the information to criminally investigate or prosecute any alcohol or drug abuse patient.[facility] Reason for Visit (unrecogniz ed section and content) Reason Comments Established Patient Discussion/SPT tube placement Care Teams (unrecognized sec tion and content) Machine Builder Relationship Specialty Start Date End Date Aura Sky MD [address] [place] [address] PCP - General Family Medicine 04/03/22 (unrecognized [...] BE BASED ON THE PRIMARY CLINICAL RECORDS. [employer] [facility]. provides no warranty or guarantee of the accuracy or completeness of information in this document.
[2023-09-29 08:55] LABS: Hematocrit 27.8 % (40-54); Hemoglobin 8.9 g/dL (13.0-16.5); Mean Corpuscular Hgb 29.5 pg (27.0-32.0); Mean Corpuscular Volume 92.1 fL (80-94); Mean Platelet Vol. 10.6 fl (6.2-12.0); Platelet Count 251 K/mm3 (150-450); RBC Distribution Width SD 47.3 fl (35.1-43.9); Red Blood Count 3.02 M/mm3 (4.6-6.2)
== END ==
LOC: OLS.WCC 04:00
PROVIDERS: PCP Family Medicine; Referring Provider Family Medicine; Visit Provider Family Medicine
DX: I11.0 Hypertensive heart disease with heart failure (principal); I50.9 Heart failure, unspecified; E11.9 Type 2 diabetes mellitus without complications
CPT/HCPCS: 36415; 85027

== ENCOUNTER → 2023-10-27 | Outpatient (REF) | payer MEDICARE, MEDICAID, SELFPAY ==
[2023-10-27 07:38] LABS: Hematocrit 30.4 % (40-54); Hemoglobin 9.5 g/dL (13.0-16.5); Mean Corp Hgb Conc 31.3 g/dL (32-36); Mean Corpuscular Hgb 28.9 pg (27.0-32.0); Mean Corpuscular Volume 92.4 fL (80-94); Mean Platelet Vol. 10.7 fl (6.2-12.0); Platelet Count 280 K/mm3 (150-450); RBC Distribution Width SD 47.2 fl (35.1-43.9); Red Blood Count 3.29 M/mm3 (4.6-6.2); White Blood Count 6.3 K/mm3 (4.4-11.0)
== END ==
LOC: OLS.WCC 04:00
PROVIDERS: PCP Family Medicine; Referring Provider Family Medicine; Visit Provider Family Medicine
DX: Z79.899 Other long term (current) drug therapy (principal)
CPT/HCPCS: 36415; 85027

== ENCOUNTER → 2023-11-02 | Outpatient (REF) | payer MEDICARE, MEDICAID, SELFPAY ==
[2023-11-02 09:01] LABS: Hematocrit 30.3 % (40-54); Hemoglobin 9.3 g/dL (13.0-16.5); Mean Corp Hgb Conc 30.7 g/dL (32-36); Mean Corpuscular Hgb 28.6 pg (27.0-32.0); Mean Corpuscular Volume 93.2 fL (80-94); Platelet Count 236 K/mm3 (150-450); RBC Distribution Width CV 14.2 % (11.6-14.6); Red Blood Count 3.25 M/mm3 (4.6-6.2); White Blood Count 6.9 K/mm3 (4.4-11.0)
[2023-11-02 09:24] LABS: Anion Gap 6 (5-15); BUN 24 mg/dL (7-18); Calcium,Total 8.4 mg/dL (8.5-10.1); Chloride 102 mmol/L (98-107); Creatinine, Serum 1.85 mg/dL (0.70-1.30); EST Glomerular Filtration Rate 38 mL/min (>60); Est Glom Filt Rate - Afr Amer 46 mL/min (>60); Glucose 128 mg/dL (74-106); Potassium 3.8 mmol/L (3.5-5.1); Sodium Level 137 mmol/L (136-145); Thyroid Stim Hormone (TSH) 1.19 uIU/mL (0.358-3.74)
[2023-11-02 09:29] LABS: Vitamin B12 463 pg/mL (211-911)
[2023-11-02 09:33] LABS: Hemoglobin A1c 5.7 % (3.8-5.6)
== END ==
LOC: OLS.WCC 05:00
PROVIDERS: PCP Family Medicine; Visit Provider Family Medicine
DX: I11.0 Hypertensive heart disease with heart failure (principal); I50.9 Heart failure, unspecified; E03.9 Hypothyroidism, unspecified; E11.9 Type 2 diabetes mellitus without complications
CPT/HCPCS: 36415; 80048; 82607; 83036; 84443; 85027

== ENCOUNTER → 2023-12-02 | Outpatient (REF) | payer MEDICARE, MEDICAID, SELFPAY ==
[2023-12-02 08:23] LABS: Hematocrit 30.7 % (40-54); Hemoglobin 9.9 g/dL (13.0-16.5); Mean Corp Hgb Conc 32.2 g/dL (32-36); Mean Corpuscular Hgb 28.8 pg (27.0-32.0); Mean Corpuscular Volume 89.2 fL (80-94); Mean Platelet Vol. 10.8 fl (6.2-12.0); Platelet Count 252 K/mm3 (150-450); RBC Distribution Width CV 13.8 % (11.6-14.6); RBC Distribution Width SD 45.1 fl (35.1-43.9); Red Blood Count 3.44 M/mm3 (4.6-6.2); White Blood Count 7.3 K/mm3 (4.4-11.0)
[2023-12-02 08:27] LABS: Vitamin B12 376 pg/mL (211-911)
[2023-12-02 08:45] LABS: Anion Gap 7 (5-15); BUN 20 mg/dL (7-18); BUN/Creat Ratio 12.3 RATIO (10-20); Calcium,Total 8.1 mg/dL (8.5-10.1); Chloride 101 mmol/L (98-107); Cholesterol 127 mg/dL (200); Creatinine, Serum 1.63 mg/dL (0.70-1.30); EST Glomerular Filtration Rate 44 mL/min (>60); Est Glom Filt Rate - Afr Amer 53 mL/min (>60); Ferritin 9 ng/mL (26-388); Glucose 117 mg/dL (74-106); High Density Lipoprotein 37 mg/dL; Potassium 3.8 mmol/L (3.5-5.1); Sodium Level 137 mmol/L (136-145); Thyroid Stim Hormone (TSH) 1.35 uIU/mL (0.358-3.74); Triglycerides 102 mg/dL; Very Low Density Lipoprotein 20 mg/dL (5-40)
== END ==
LOC: OLS.WCC 05:00
PROVIDERS: PCP Family Medicine; Visit Provider Family Medicine
DX: I11.0 Hypertensive heart disease with heart failure (principal); I50.9 Heart failure, unspecified; E11.9 Type 2 diabetes mellitus without complications; E78.5 Hyperlipidemia, unspecified; E03.9 Hypothyroidism, unspecified; Z79.899 Other long term (current) drug therapy
CPT/HCPCS: 36415; 80048; 80061; 82607; 82728; 82746; 83036; 84443; 85027

== ENCOUNTER → 2024-01-04 | Outpatient (REF) | payer MEDICARE, MEDICAID, SELFPAY ==
[2024-01-04 08:28] LABS: Hematocrit 32.2 % (40-54); Hemoglobin 10.4 g/dL (13.0-16.5); Mean Corp Hgb Conc 32.3 g/dL (32-36); Mean Corpuscular Hgb 29.1 pg (27.0-32.0); Mean Corpuscular Volume 90.2 fL (80-94); Platelet Count 239 K/mm3 (150-450); RBC Distribution Width CV 13.2 % (11.6-14.6); Red Blood Count 3.57 M/mm3 (4.6-6.2); White Blood Count 7.5 K/mm3 (4.4-11.0)
== END ==
LOC: OLS.WCC 05:00
PROVIDERS: PCP Family Medicine; Visit Provider Family Medicine
DX: I11.0 Hypertensive heart disease with heart failure (principal); I50.9 Heart failure, unspecified; E11.9 Type 2 diabetes mellitus without complications
CPT/HCPCS: 36415; 85027

== ENCOUNTER → 2024-02-01 | Outpatient (REF) | payer MEDICARE, MEDICAID, SELFPAY ==
[2024-02-01 09:29] LABS: Hemoglobin 9.8 g/dL (13.0-16.5); Mean Corp Hgb Conc 31.6 g/dL (32-36); Mean Corpuscular Hgb 28.5 pg (27.0-32.0); Mean Corpuscular Volume 90.1 fL (80-94); Mean Platelet Vol. 11.3 fl (6.2-12.0); Platelet Count 234 K/mm3 (150-450); RBC Distribution Width CV 13.6 % (11.6-14.6); RBC Distribution Width SD 44.5 fl (35.1-43.9); Red Blood Count 3.44 M/mm3 (4.6-6.2); White Blood Count 6.8 K/mm3 (4.4-11.0)
== END ==
LOC: OLS.WCC 05:00
PROVIDERS: PCP Family Medicine; Visit Provider Family Medicine
DX: I11.0 Hypertensive heart disease with heart failure (principal); I50.9 Heart failure, unspecified; E11.9 Type 2 diabetes mellitus without complications
CPT/HCPCS: 36415; 85027

== ENCOUNTER → 2024-03-03 | Outpatient (REF) | payer MEDICARE, MEDICAID, SELFPAY ==
[2024-03-03 08:04] LABS: Anion Gap 3 (5-15); BUN 17 mg/dL (7-18); BUN/Creat Ratio 10.7 RATIO (10-20); Calcium,Total 8.1 mg/dL (8.5-10.1); Chloride 99 mmol/L (98-107); Cholesterol 122 mg/dL (200); Creatinine, Serum 1.59 mg/dL (0.70-1.30); EST Glomerular Filtration Rate 45 mL/min (>60); Est Glom Filt Rate - Afr Amer 54 mL/min (>60); Glucose 78 mg/dL (74-106); High Density Lipoprotein 46 mg/dL; Potassium 4.9 mmol/L (3.5-5.1); Sodium Level 132 mmol/L (136-145); Thyroid Stim Hormone (TSH) 1.14 uIU/mL (0.358-3.74); Triglycerides 91 mg/dL; Very Low Density Lipoprotein 18 mg/dL (5-40)
[2024-03-03 09:36] LABS: Vitamin B12 369 pg/mL (211-911)
== END ==
LOC: OLS.WCC 05:00
PROVIDERS: PCP Family Medicine; Visit Provider Family Medicine
DX: I11.0 Hypertensive heart disease with heart failure (principal); I50.9 Heart failure, unspecified; E11.9 Type 2 diabetes mellitus without complications; E03.9 Hypothyroidism, unspecified; Z79.899 Other long term (current) drug therapy
CPT/HCPCS: 36415; 80048; 80061; 82607; 83036; 84443

== ENCOUNTER → 2024-04-03 05:00 | Outpatient (REF) | payer MEDICARE, MEDICAID, SELFPAY ==
[2024-04-03 07:29] LABS: Hematocrit 28.4 % (40-54); Hemoglobin 9.5 g/dL (13.0-16.5); Mean Corp Hgb Conc 33.5 g/dL (32-36); Mean Corpuscular Hgb 28.7 pg (27.0-32.0); Mean Corpuscular Volume 85.8 fL (80-94); Mean Platelet Vol. 10.8 fl (6.2-12.0); Platelet Count 223 K/mm3 (150-450); RBC Distribution Width CV 13.4 % (11.6-14.6); RBC Distribution Width SD 41.4 fl (35.1-43.9); Red Blood Count 3.31 M/mm3 (4.6-6.2); White Blood Count 5.7 K/mm3 (4.4-11.0)
== END ==
LOC: OLS.WCC 05:00
PROVIDERS: PCP Family Medicine; Visit Provider Family Medicine
DX: I11.0 Hypertensive heart disease with heart failure (principal); I50.9 Heart failure, unspecified; E11.9 Type 2 diabetes mellitus without complications
CPT/HCPCS: 36415; 85027

== ENCOUNTER → 2024-05-03 07:20 | Outpatient (REF) | payer MEDICARE, MEDICAID, SELFPAY ==
[2024-05-03 08:47] LABS: Hemoglobin 10.6 g/dL (13.0-16.5); Mean Corp Hgb Conc 32.1 g/dL (32-36); Mean Corpuscular Volume 87.3 fL (80-94); Mean Platelet Vol. 10.5 fl (6.2-12.0); Platelet Count 256 K/mm3 (150-450); RBC Distribution Width CV 13.6 % (11.6-14.6); RBC Distribution Width SD 43.5 fl (35.1-43.9); Red Blood Count 3.78 M/mm3 (4.6-6.2); White Blood Count 5.9 K/mm3 (4.4-11.0)
== END ==
LOC: OLS.WCC 07:20
PROVIDERS: PCP Family Medicine; Visit Provider Family Medicine
DX: I11.0 Hypertensive heart disease with heart failure (principal); I50.9 Heart failure, unspecified; E11.9 Type 2 diabetes mellitus without complications
CPT/HCPCS: 36415; 85027

== ENCOUNTER → 2024-06-02 | Outpatient (REF) | payer MEDICARE, MEDICAID, SELFPAY ==
[2024-06-02 09:11] LABS: Hematocrit 30.2 % (40-54); Mean Corp Hgb Conc 33.1 g/dL (32-36); Mean Corpuscular Hgb 28.2 pg (27.0-32.0); Mean Corpuscular Volume 85.3 fL (80-94); Mean Platelet Vol. 10.5 fl (6.2-12.0); Platelet Count 193 K/mm3 (150-450); RBC Distribution Width CV 14.2 % (11.6-14.6); Red Blood Count 3.54 M/mm3 (4.6-6.2); White Blood Count 5.5 K/mm3 (4.4-11.0)
[2024-06-02 09:21] LABS: Anion Gap 6 (5-15); BUN 16 mg/dL (7-18); BUN/Creat Ratio 10.5 RATIO (10-20); Chloride 94 mmol/L (98-107); Creatinine, Serum 1.52 mg/dL (0.70-1.30); EST Glomerular Filtration Rate 47 mL/min (>60); Est Glom Filt Rate - Afr Amer 57 mL/min (>60); Glucose 114 mg/dL (74-106); Sodium Level 129 mmol/L (136-145)
== END ==
LOC: OLS.WCC 05:00
PROVIDERS: PCP Family Medicine; Visit Provider Family Medicine
DX: I11.0 Hypertensive heart disease with heart failure (principal); I50.9 Heart failure, unspecified; E11.9 Type 2 diabetes mellitus without complications
CPT/HCPCS: 36415; 80048; 85027

== ENCOUNTER → 2024-06-05 | Outpatient (REF) | payer MEDICARE, MEDICAID, SELFPAY ==
[2024-06-05 08:19] LABS: Hemoglobin A1c 6.1 % (3.8-5.6)
[2024-06-05 08:42] LABS: Cholesterol 107 mg/dL (200); High Density Lipoprotein 45 mg/dL; Triglycerides 70 mg/dL; Very Low Density Lipoprotein 14 mg/dL (5-40)
[2024-06-05 09:03] LABS: Vitamin B12 500 pg/mL (211-911)
== END ==
LOC: OLS.WCC 04:00
PROVIDERS: PCP Family Medicine; Visit Provider Family Medicine
DX: I48.91 Unspecified atrial fibrillation (principal); E11.9 Type 2 diabetes mellitus without complications; E03.9 Hypothyroidism, unspecified; Z79.899 Other long term (current) drug therapy
CPT/HCPCS: 36415; 80061; 82607; 83036; 84443

== ENCOUNTER → 2024-07-03 | Outpatient (REF) | payer MEDICARE, MEDICAID, SELFPAY ==
[2024-07-03 07:54] LABS: Hematocrit 27.4 % (40-54); Hemoglobin 8.9 g/dL (13.0-16.5); Mean Corp Hgb Conc 32.5 g/dL (32-36); Mean Corpuscular Hgb 28.9 pg (27.0-32.0); Mean Platelet Vol. 10.7 fl (6.2-12.0); Platelet Count 173 K/mm3 (150-450); RBC Distribution Width CV 15.8 % (11.6-14.6); RBC Distribution Width SD 51.2 fl (35.1-43.9); Red Blood Count 3.08 M/mm3 (4.6-6.2); White Blood Count 5.1 K/mm3 (4.4-11.0)
== END ==
LOC: OLS.WCC 06:42
PROVIDERS: PCP Family Medicine; Referring Provider Family Medicine; Visit Provider Family Medicine
DX: I11.0 Hypertensive heart disease with heart failure (principal); I50.9 Heart failure, unspecified; E11.9 Type 2 diabetes mellitus without complications
CPT/HCPCS: 36415; 85027

== ENCOUNTER → 2024-08-03 | Outpatient (REF) | payer MEDICARE, MEDICAID, SELFPAY ==
[2024-08-03 08:11] LABS: Hematocrit 29.8 % (40-54); Hemoglobin 9.2 g/dL (13.0-16.5); Mean Corp Hgb Conc 30.9 g/dL (32-36); Mean Corpuscular Hgb 27.8 pg (27.0-32.0); Mean Platelet Vol. 10.7 fl (6.2-12.0); Platelet Count 238 K/mm3 (150-450); RBC Distribution Width CV 15.9 % (11.6-14.6); RBC Distribution Width SD 53.1 fl (35.1-43.9); Red Blood Count 3.31 M/mm3 (4.6-6.2); White Blood Count 8.4 K/mm3 (4.4-11.0)
== END ==
LOC: OLS.WCC 05:00
PROVIDERS: PCP Family Medicine; Visit Provider Family Medicine
DX: I11.0 Hypertensive heart disease with heart failure (principal); I50.9 Heart failure, unspecified; E11.9 Type 2 diabetes mellitus without complications
CPT/HCPCS: 36415; 85027

== ENCOUNTER → 2024-10-03 04:00 | Outpatient (REF) | payer MEDICARE, MEDICAID, SELFPAY ==
[2024-10-03 09:09] LABS: Hematocrit 29.3 % (40-54); Mean Corp Hgb Conc 30.7 g/dL (32-36); Mean Corpuscular Hgb 27.1 pg (27.0-32.0); Mean Corpuscular Volume 88.3 fL (80-94); Mean Platelet Vol. 10.9 fl (6.2-12.0); Platelet Count 234 K/mm3 (150-450); RBC Distribution Width CV 14.8 % (11.6-14.6); RBC Distribution Width SD 47.5 fl (35.1-43.9); Red Blood Count 3.32 M/mm3 (4.6-6.2); White Blood Count 5.7 K/mm3 (4.4-11.0)
== END ==
LOC: OLS.WCC 04:00
PROVIDERS: PCP Family Medicine; Referring Provider Family Medicine; Visit Provider Family Medicine
DX: I50.9 Heart failure, unspecified (principal); E11.9 Type 2 diabetes mellitus without complications; I11.0 Hypertensive heart disease with heart failure
CPT/HCPCS: 36415; 85027

== ENCOUNTER → 2024-11-01 | Outpatient (REF) | payer MEDICARE, MEDICAID, SELFPAY ==
[2024-11-01 08:23] LABS: Hematocrit 27.8 % (40-54); Hemoglobin 8.7 g/dL (13.0-16.5); Mean Corp Hgb Conc 31.3 g/dL (32-36); Mean Corpuscular Hgb 26.6 pg (27.0-32.0); Mean Platelet Vol. 10.3 fl (6.2-12.0); Platelet Count 307 K/mm3 (150-450); RBC Distribution Width CV 14.8 % (11.6-14.6); RBC Distribution Width SD 45.7 fl (35.1-43.9); Red Blood Count 3.27 M/mm3 (4.6-6.2); White Blood Count 5.8 K/mm3 (4.4-11.0)
== END ==
LOC: OLS.WCC 05:00
PROVIDERS: PCP Family Medicine; Visit Provider Family Medicine
DX: E11.8 Type 2 diabetes mellitus with unspecified complications (principal); Z79.899 Other long term (current) drug therapy
CPT/HCPCS: 36415; 85027

== ENCOUNTER → 2024-11-30 | Outpatient (REF) | payer MEDICARE, MEDICAID, SELFPAY ==
[2024-11-30 08:15] LABS: Hematocrit 28.4 % (40-54); Hemoglobin 8.8 g/dL (13.0-16.5); Mean Corpuscular Hgb 27.2 pg (27.0-32.0); Mean Corpuscular Volume 87.7 fL (80-94); Mean Platelet Vol. 9.8 fl (6.2-12.0); Platelet Count 382 K/mm3 (150-450); RBC Distribution Width CV 16.8 % (11.6-14.6); RBC Distribution Width SD 53.2 fl (35.1-43.9); Red Blood Count 3.24 M/mm3 (4.6-6.2)
[2024-11-30 08:48] LABS: Anion Gap 7 (5-15); BUN 14 mg/dL (4-19); BUN/Creat Ratio 9.2 RATIO (10-20); Calcium,Total 7.7 mg/dL (7.6-11.0); Carbon Dioxide 27.2 mmol/L (21.0-32.0); Chloride 103 mmol/L (98-108); Creatinine, Serum 1.55 mg/dL (0.70-1.20); EST Glomerular Filtration Rate 45 (>60); Ferritin 26 ng/mL (37-417); Glucose 92 mg/dL (70-99); Potassium 4.3 mmol/L (3.3-5.1); Sodium Level 137 mmol/L (133-145)
== END ==
LOC: OLS.WCC 05:00
PROVIDERS: PCP Family Medicine; Visit Provider Family Medicine
DX: E11.9 Type 2 diabetes mellitus without complications (principal); D50.9 Iron deficiency anemia, unspecified; Z79.899 Other long term (current) drug therapy
CPT/HCPCS: 36415; 80048; 82728; 85027

== ENCOUNTER → 2024-12-08 | Outpatient (REF) | payer MEDICARE, MEDICAID, SELFPAY | LOC: OLS.WCC 15:41 | PROVIDERS: PCP Family Medicine; Visit Provider Family Medicine | DX: R19.5 Other fecal abnormalities (principal) | CPT/HCPCS: 82274 ==

== ENCOUNTER → 2025-01-02 | Outpatient (REF) | payer MEDICARE, MEDICAID, SELFPAY ==
[2025-01-02 09:06] LABS: Hemoglobin 9.4 g/dL (13.0-16.5); Mean Corp Hgb Conc 31.3 g/dL (32-36); Mean Corpuscular Hgb 27.1 pg (27.0-32.0); Mean Corpuscular Volume 86.5 fL (80-94); Mean Platelet Vol. 10.5 fl (6.2-12.0); Platelet Count 376 K/mm3 (150-450); RBC Distribution Width CV 15.9 % (11.6-14.6); RBC Distribution Width SD 50.4 fl (35.1-43.9); Red Blood Count 3.47 M/mm3 (4.6-6.2); White Blood Count 7.2 K/mm3 (4.4-11.0)
== END ==
LOC: OLS.WCC 05:00
PROVIDERS: PCP Family Medicine; Visit Provider Family Medicine
DX: I10 Essential (primary) hypertension (principal); Z79.899 Other long term (current) drug therapy
CPT/HCPCS: 36415; 85027

== ENCOUNTER → 2025-02-01 | Outpatient (REF) | payer MEDICARE, MEDICAID, SELFPAY ==
[2025-02-01 09:17] LABS: Hematocrit 30.1 % (40-54); Hemoglobin 9.5 g/dL (13.0-16.5); Mean Corp Hgb Conc 31.6 g/dL (32-36); Mean Corpuscular Hgb 27.4 pg (27.0-32.0); Mean Corpuscular Volume 86.7 fL (80-94); Mean Platelet Vol. 10.1 fl (6.2-12.0); Platelet Count 308 K/mm3 (150-450); RBC Distribution Width CV 15.5 % (11.6-14.6); RBC Distribution Width SD 49.1 fl (35.1-43.9); Red Blood Count 3.47 M/mm3 (4.6-6.2); White Blood Count 6.3 K/mm3 (4.4-11.0)
== END ==
LOC: OLS.WCC 07:05
PROVIDERS: PCP Family Medicine; Visit Provider Family Medicine
DX: I48.91 Unspecified atrial fibrillation (principal); Z79.899 Other long term (current) drug therapy
CPT/HCPCS: 36415; 85027

== ENCOUNTER → 2025-03-05 | Outpatient (REF) | payer MEDICARE, MEDICAID, SELFPAY ==
[2025-03-05 08:22] LABS: Hematocrit 29.1 % (40-54); Hemoglobin 9.4 g/dL (13.0-16.5); Immature Granulocytes Count 0.020 X10^3/uL (0.0-0.0); Mean Corp Hgb Conc 32.3 g/dL (32-36); Mean Corpuscular Volume 84.8 fL (80-94); Mean Platelet Vol. 10.3 fl (6.2-12.0); NRBC Flagged by Analyzer 0 % (0-5); Platelet Count 255 K/mm3 (150-450); RBC Distribution Width CV 15.7 % (11.6-14.6); RBC Distribution Width SD 48.3 fl (35.1-43.9); Red Blood Count 3.43 M/mm3 (4.6-6.2); White Blood Count 6.1 K/mm3 (4.4-11.0)
[2025-03-05 08:47] LABS: Anion Gap 9 (5-15); BUN 19 mg/dL (4-19); BUN/Creat Ratio 9.9 RATIO (10-20); Calcium,Total 8.3 mg/dL (7.6-11.0); Carbon Dioxide 27.0 mmol/L (21.0-32.0); Chloride 102 mmol/L (98-108); Cholesterol 113 mg/dL (<=200); Glucose 100 mg/dL (70-99); Low Density Lipoprotein Calc. 59 mg/dL; Potassium 4.1 mmol/L (3.3-5.1); Triglycerides 67 mg/dL; Very Low Density Lipoprotein 13 mg/dL (5-40); Vitamin B12 474 pg/mL (180-914); cholesterol:hdl ratio screen 2.78
== END ==
LOC: OLS.WCC 04:00
PROVIDERS: PCP Family Medicine; Referring Provider Family Medicine; Visit Provider Family Medicine
DX: E03.9 Hypothyroidism, unspecified (principal); E55.9 Vitamin D deficiency, unspecified
CPT/HCPCS: 36415; 80048; 80061; 82607; 83036; 84443; 85025

== ENCOUNTER → 2025-04-03 | Outpatient (REF) | payer MEDICARE, MEDICAID, SELFPAY ==
[2025-04-03 07:59] LABS: Hematocrit 25.7 % (40-54); Hemoglobin 8.2 g/dL (13.0-16.5); Mean Corp Hgb Conc 31.9 g/dL (32-36); Mean Corpuscular Volume 87.4 fL (80-94); Mean Platelet Vol. 10.4 fl (6.2-12.0); Platelet Count 276 K/mm3 (150-450); RBC Distribution Width CV 16.4 % (11.6-14.6); RBC Distribution Width SD 52.5 fl (35.1-43.9); Red Blood Count 2.94 M/mm3 (4.6-6.2); White Blood Count 5.9 K/mm3 (4.4-11.0)
== END ==
LOC: OLS.WCC 05:00
PROVIDERS: PCP Family Medicine; Visit Provider Family Medicine
DX: I10 Essential (primary) hypertension (principal); Z79.899 Other long term (current) drug therapy; E11.8 Type 2 diabetes mellitus with unspecified complications
CPT/HCPCS: 36415; 85027

== ENCOUNTER → 2025-04-05 | Outpatient (REF) | payer MEDICARE, MEDICAID, SELFPAY | LOC: OLS.WCC 17:00 | PROVIDERS: PCP Family Medicine; Visit Provider Family Medicine | DX: N31.9 Neuromuscular dysfunction of bladder, unspecified (principal); R39.9 Unspecified symptoms and signs involving the genitourinary system | CPT/HCPCS: 87077; 87086; 87088; 87186 ==

== ENCOUNTER → 2025-05-04 | Outpatient (REF) | payer MEDICARE, MEDICAID, SELFPAY ==
[2025-05-04 08:06] LABS: Hematocrit 25.8 % (40-54); Hemoglobin 8.4 g/dL (13.0-16.5); Mean Corp Hgb Conc 32.6 g/dL (32-36); Mean Corpuscular Volume 89.3 fL (80-94); Mean Platelet Vol. 10.6 fl (6.2-12.0); Platelet Count 277 K/mm3 (150-450); RBC Distribution Width CV 16.5 % (11.6-14.6); RBC Distribution Width SD 53.7 fl (35.1-43.9); Red Blood Count 2.89 M/mm3 (4.6-6.2); White Blood Count 5.2 K/mm3 (4.4-11.0)
[2025-05-04 08:33] LABS: Ferritin 30 ng/mL (37-417); Iron 18 ug/dL (65-175); Iron Binding Capacity,Unsat 150 ug/dL (228-428)
[2025-05-04 08:40] LABS: Iron Binding Capacity,Total 168 ug/dL (250-450)
== END ==
LOC: OLS.WCC 05:00
PROVIDERS: PCP Family Medicine; Visit Provider Family Medicine
DX: E11.8 Type 2 diabetes mellitus with unspecified complications (principal); I73.89 Other specified peripheral vascular diseases
CPT/HCPCS: 36415; 82728; 83540; 83550; 85027

== ENCOUNTER → 2025-06-04 | Outpatient (REF) | payer MEDICARE, MEDICAID, SELFPAY ==
--- OUTSIDE RECORDS SUMMARY | 2025-06-04 03:34 | XMS RPT_ITS | CCD ---
Author Organization [facility] Care Team Providers Care Entry Analyst Name Role Phone Aura Sky MD Primary Care Provider JORDAN JORDAN JR Attending Unavaila ble AURA SKY Referring Unavailable SKY, AURA K Primary Care Unavailable SKY, AURA K Referring Unavailable SKY, AURA K Primary Care Unavailable OUSMANE DURAND Attending UnavailDr. Aura Johnson MD Primary Care Provider Aura Sky MD Attending Provider Unavailable Aura Sky MD Referring Provider Unavailable Dr. Aura Sky MD Primary Care Provider Aura Sky MD Attending Provider Unavailable Dr. Aura Sky MD Primary Care Provider Aura Sky MD Attending Provider Unavailable Sky OLS, Aura K Attending Unavailable Sky, Aura K Primary Care Unavailable Sky OLS, Aura K Attending Unavailable Sky OLS, Aura K Referring Unavailable Sky, Aura K Primary Care Unavailable Sky OLS, Aura K Attending Unavailable Sky, Aura K Primary Care Unavailable Sky OLS, Aura K Attending Unavailable Sky, Aura K Primary Care Unavailable Sky, Aura K Primary Care Unavailable Sky OLS, Aura K Attending Unavailable Sky, Aura K Primary Care Unavailable Sky OLS, Aura K Attending Unavailable Sky, Aura K Primary Care Unavailable Sky OLS, Aura K Attending Unavailable Sky OLS, Aura K Attending Unavailable Sky, Aura K Primary Care Unavailable Sky, Aura K Primary Care Unavailable Sky OLS, Aura K Referring Unavailable Sky OLS, Aura K Attending Unavailable Sky OLS, Aura K Attending Unavailable Sky, Aura K Primary Care Unavailable Sky OLS, Aura K Attending Unavailable Sky, Aura K Primary Care Unavailable Sky OLS, Aura K Attending Unavailable Sky, Aura K Primary Care Unavailable Sky OLS, Aura K Attending Unavailable Sky, Aura K Primary Care Unavailable Sky OLS, Aura K Attending Unavailable Sky, Aura K Primary Care Unavailable Sky OLS, Aura K Attending Unavailable Sky OLS, Aura K Referring Unavailable Aura Sky Primary Care Unavailable Allergies Allergy Classification Reported Allergen(s) Allergy Type Date of Onset Reaction(s) Facility (20 sources) hydroCHLOROthiazide Drug Allergy 08-03-20 Unknown [facility] (20 sources) Triamterene Drug Allergy 08-03-20 Unknown [facility] (3 sources) hydroCHLOROthiazide / Triamterene; Translations: [TRIAMTERENE-HYDROCHLO ROTHIAZID] Drug Allergy 04-17-20 16 Other: See Comments [facility] Work Phone: (1 source) hydroCHLOROthiazide Drug Allergy 04-10-20 [facility] Rep[facility] (1 source) Triamterene Drug Allergy 04-10-20 [facility] Medications Current Medications Medication Drug Class(es) Dates Sig (Normalized) Sig (Original) acetaminophen 500 mg oral tablet (20 sources) Start: 08-03-2020 take 2 tablets by mouth every four hours as needed for pain Acetaminophen 500 MG tablet Active 1000 mg PO EVERY 4 HOURS NEEDED as needed for Pain Score 1-10 August 03, 2020 1:00am Start: 08-03-2020 take 1000 mg by mout h every four hours as needed Acetaminophen Active 1000 MG PO EVERY 4 HOURS NEEDED August 03, 2020 1:00am amLODIPine 5 mg oral tablet (20 sources) Dihydropyridine Calcium Channel Octaviano Start: 07-08-2020 take 2 tablets by mouth once daily Amlodipine 5 MG tablet Active 10 mg PO DAILY July 08, 2020 1:00am blood pressure Start: 07-08-2020 take 10 mg by mouth once daily Amlodipine Active 10 MG PO DAILY July 08, 2020 1:00am Start: 07-08-2020 take 5 mg by mouth once daily Amlodipine Active 5 MG PO DAILY July 08, 2020 3:08am Start: 12-27-2015 take 1 tablet by marii th once daily amLODIPine (NORVASC) 10 mg tablet Take 1 tablet by mouth once daily. 30 tablet 5 12/27/2015 Active Comment on above: Take 1 tablet by marii th once daily. atorvastatin 40 mg oral tablet (20 sources) HMG-CoA Reductase Inhibitor Start: 07-08-2020 Atorvastatin 40 MG tablet Active 20 mg PO AT BEDTIME July 08, 2020 1:00am cholesterol Start: 07-08-2020 take 20 mg by mouth at bedtime Atorvastatin Active 20 MG PO AT BEDTIME July 08, 2020 1:00am Start: 08-25-2016 take 1 tablet by marii th once daily atorvastatin (LIPITOR) 40 mg tablet Take 40 mg by mouth once daily. 0 08/25/2016 Active Comment on above: Take 40 mg by mouth once daily. bisacodyl 10 mg rectal suppository (20 sources) Stimulant Laxative Start: 08-03-2020 Bisacodyl 10 MG suppository Active 1 SUPP.RECT RECTAL Q72H as needed for Constipation August 03, 2020 1:00am Start: 08-03-2020 Bisacodyl Acti ve 1 SUPP.RECT RECTAL Q72H August 03, 2020 1:00am BISACODYL RECTAL by RECTAL route as needed (constipation). 0 Active Comment on above: by RECTAL route as n eeded (constipation). busPIRone hydrochloride 15 mg oral tablet (20 sources) Start: 07-08-20 take 1 tablet by mouth twice daily Buspirone 15 MG tablet Active 15 mg PO TWICE A DAY July 08, 2020 1:00am anxiety Start: 03-19-2016 take 1 tablet by marii th twice daily busPIRone (BUSPAR) 10 mg tablet Take 1 tablet by mouth twice daily. 0 03/19/2016 Active Comment on above: Take 1 tablet by marii twice daily. carboxymethylcellulose sodium 10 mg/ml ophthalmic solution (7 sources) Start : 08-03 Carboxymethylcellulose Sodium Active 1 DRP OP TWICE A DAY August 04, 2020 12:02am cholecalciferol 0.025 mg oral tablet (7 sources) Vitamin D Start : 11-08 take 1 tablet by mouth twice daily Cholecalciferol (Vitamin D3) (Vitamin D3) 1,000 UNIT tablet Active 1000 UNIT PO TWICE A DAY November 08, 2018 8:03pm cyclobenzaprine hydrochloride 10 mg oral tablet (9 sources) Muscle Relaxant Start : 11-08 take 5 mg by mouth every six hours as needed Cyclobenzaprine Active 5 MG PO EVERY 6 HOURS NEEDED November 08, 2018 8:03pm take 1 tablet by marii th every eight hours as needed cyclobenzaprine (FLEXERIL) 5 mg tablet T jack 5 mg by mouth three times daily as needed. 0 Active Comment on above: Take 5 mg by mouth t hree times daily as needed. furosemide 20 mg oral tablet (20 sources) Loop Diuretic Start: 04-10-2022 take 1 tablet by mouth once daily Furosemide 20 MG tablet Active 20 mg PO DAILY April 10, 2022 5:00pm Start: 08-10-2020 End: 04-10-2022 take 1 tablet by mouth twice daily Furosemide 20 MG tablet Discontinued 20 mg PO BID@1000,1800 0 August 10, 2020 1:00am April 10, 2022 5:00pm Start: 07-08-2020 End: 08-10-2020 take 1 tablet by mouth once daily Furosemide 20 MG tablet Discontinued 20 mg PO DAILY July 08, 2020 1:00am August 10, 2020 1:25pm chf Comment on above: Take 20 mg by mouth twice daily. gabapentin 100 mg oral capsule (18 sources) Anti-epileptic Agent Start: 2 take 1 capsule by mouth three times daily Gabapentin 100 mg Capsule Active 100 mg PO THREE TIMES A DAY April 10, 2022 12:00am guaiFENesin 20 mg/ml oral solution (7 sources) Start: 0 take 10 mg by mouth every four hours as needed Guaifenesin Active 10 MG PO EVERY 4 HOURS NEEDED July 08, 2020 3:08am hydrALAZINE hydrochloride 25 mg oral tablet (9 sources) Arteriolar Vasodilator Start: 1 Hydralazine Active 25 MG PO TWICE A DAY 60 August 10, 2020 11:15am Hold for SBP less than 120 mmHg take 1 tablet by mouth twice raymon ly hydrALAZINE (APRESOLINE) 25 mg tablet Take 25 mg by mouth twice daily. 0 Active Comment on above: Take 25 mg by mouth twice daily. hydrOXYzine pamoate 50 mg oral capsule (9 sources) Antihistamine Start: 0 take 25 mg by mouth every six hours as needed Hydroxyzine Pamoate Active 25 MG PO EVERY 6 HOURS NEEDED August 04, 2020 12:13am take 1 capsule by [facility] every eight hours as needed hydrOXYzine pamoate (VISTARIL) 25 mg capsule Take 25 mg by mouth three times daily as needed. 0 Active Comment on above: Take 25 mg by mouth three times daily as needed. ibuprofen 400 mg oral tablet (20 sources) Nonsteroidal Anti-inflammatory Drug Start: 0 take 1 tablet by mouth every six hours as needed for pain Ibuprofen 400 MG tablet Active 400 mg PO EVERY 6 HOURS as needed for pain August 03, 2020 1:00am Insulin Glargine (20 sources) Insulin Analog Start: inject 20 [IU] by subcutaneous injection at bedtime Insulin Glargine Active 20 UNIT SQ AT BEDTIME April 10, 2022 4:00pm Start: 04-10-2022 inject 20 [IU] by benjamin bcutaneous injection at bedtime Insulin Glargine Active 20 UNIT SQ AT BEDTIME April 10, 2022 5:00pm Start: 08-10-2020 End: 04-10-2022 inject 15 [IU] by subcutaneous injection at bedtime Insulin Glargine Discontinued 15 UNIT SQ AT BEDTIME 0 August 10, 2020 10:20am April 10, 2022 4:00pm Start: 08-10-2020 End: 04-10-2022 inject 15 [IU] by subcutaneous injection at bedtime Insulin Glargine Discontinued 15 UNIT SQ AT BEDTIME 0 August 10, 2020 11:20am April 10, 2022 5:00pm Start: 08-10-2020 inject 15 [IU] by benjamin bcutaneous injection at bedtime Insulin Glargine Active 15 UNIT SQ AT BEDTIME 0 August 10, 2020 11:20am Start: 08-10-2020 Insulin Glargi ne Active 10 UNITS SC WITH BREAKFAST August 10, 2020 11:15am Start: 07-08-2020 End: 08-10-2020 inject 18 [IU] by subcutaneous injection at bedtime Insulin Glargine 100 UNIT/ML solution Discontinued 18 U SQ AT BEDTIME July 08, 2020 1:00am August 10, 2020 11:20am DM Insulin Glargine 100 UNIT/ML solution (6 sources) Start: 04-10-2022 inject 20 [IU] by subcutaneous injection at bedtime Insulin Glargine 100 UNIT/ML solution Active 20 U SQ AT BEDTIME April 10, 2022 5:00pm DM Start: 04-10-2022 inject 20 [IU] by benjamin bcutaneous injection at bedtime Insulin Glargine 100 UNIT/ML solution Active 20 U SQ AT BEDTIME April 10, 2022 5:00pm Start: 08-10-2020 End: 04-10-2022 inject 15 [IU] by subcutaneous injection at bedtime Insulin Glargine 100 UNIT/ML solution Discontinued 15 U SQ AT BEDTIME 0 0 August 10, 2020 11:20am April 10, 2022 5:00pm DM Start: 08-10-2020 End: 04-10-2022 inject 15 [IU] by subcutaneous injection at bedtime Insulin Glargine 100 UNIT/ML solution Discontinued 15 U SQ AT BEDTIME 0 August 10, 2020 11:20am April 10, 2022 5:00pm 3 ml insulin lispro 100 unt/ml cartridge (7 sources) Insulin Analog Start: 07-08-2020 inject 100 [IU] by subcutaneous injection once daily Insulin Lispro Active 100 UNIT SQ DAILY July 08, 2020 3:08am per sliding scale levothyroxine sodium 0.05 mg oral tablet (20 sources) l-Thyroxine Start: 08-17-2016 take 1 tablet by mouth once daily Levothyroxine 50 MCG tablet Active 50 ug PO DAILY November 08, 2018 12:00am thyroid Start: 12-27-2015 take 1 capsule by mo ut once daily Levothyroxine 50 mcg cap Take 1 capsule by mouth once daily. 30 capsule 5 12/27/2015 Active Comment on above: Take 1 capsule by mo ut once daily. Take 50 mcg by mouth once daily. melatonin 10 mg sublingual tablet (20 sources) Start: 11-08-2018 take 1 tablet by mouth at bedtime Melatonin 10 MG tablet Active 10 mg PO AT BEDTIME November 08, 2018 12:00am insomnia 24 hr metoprolol succinate 25 mg extended release oral tablet (18 sources) beta-Adrenergic Octaviano Start: 04-10-2022 take 1 tablet by mouth twice daily Metoprolol Succinate 25 mg Tablet Extended Release 24 Hr Active 25 mg PO TWICE A DAY April 10, 2022 12:00am omeprazole 20 mg delayed release oral capsule (20 sources) Proton Pump Inhibitor Start: 06-04-2016 take 1 capsule by mouth once daily Omeprazole 20 MG capsule Active 20 mg PO DAILY June 04, 2016 12:00am GERD Start: 05-30-2016 take 1 capsule by mo uth twice daily omeprazole (PRILOSEC) 20 mg capsule Indications: Gastroesophageal reflux disease without esophagitis Take 1 capsule by mouth twice daily. 180 capsule 4 05/30/2016 Active Comment on above: Take 1 capsule by mo uth twice daily. OXcarbazepine 600 mg oral tablet (20 sources) Anti-epileptic Agent Start: 07-08-2020 Oxcarbazepine 600 MG tablet Active 150 mg PO TWICE A DAY July 08, 2020 1:00am mood Start: 07-08-2020 take 150 mg by mouth twice daily Oxcarbazepine Active 150 MG PO TWICE A DAY July 08, 2020 1:00am Start: 07-08-2020 take 600 mg by mouth twice daily Oxcarbazepine Active 600 MG PO TWICE A DAY July 08, 2020 3:08am Comment on above: Take 600 mg by mouth twice daily. polyethylene glycol 3350 85185 mg powder for oral solution (20 sources) Osmotic Laxative Start: 07-08-2020 take 17 g by mouth once daily Polyethylene Glycol 3350 17 GM packet Active 17 g PO DAILY July 08, 2020 1:00am potassium gluconate 2.5 meq oral tablet (20 sources) Start: 07-08-2020 Potassium 99 MG tablet Active 20 mg PO DAILY July 08, 2020 1:00am supplement Start: 07-08-2020 take 20 mg by mouth once daily Potassium Active 20 MG PO DAILY July 08, 2020 1:00am QUEtiapine 300 mg oral tablet (20 sources) Atypical Antipsychotic Start: 11-08-2018 take 2 tablets by mouth at bedtime Quetiapine 100 MG tablet Active 200 mg PO AT BEDTIME November 08, 2018 12:00am mental health Start: 11-08-2018 Quetiapine (Se roquel) 300 MG tablet Active 200 mg PO AT BEDTIME November 08, 2018 12:00am mental health Start: 11-08-2018 take 200 mg by mouth at bedtim e Quetiapine Active 200 MG PO AT BEDTIME November 08, 2018 12:00am Start: 11-08-2018 take 1 tablet by marii at bedtime Quetiapine (Seroquel) 300 MG tablet Active 300 MG PO AT BEDTIME November 08, 2018 8:03pm Start: 11-08-2018 take 100 mg by mouth once marlena y Quetiapine Active 100 MG PO DAILY November 08, 2018 8:03pm Start: 07-31-2016 take 2 tablets by mo [facility] at bedtime SEROQUEL XR 50 mg Tb24 Take two tablets by mouth at bedtime. 0 07/31/2016 Active Start: 06-11-2016 take 1 tablet by marii th once daily at bedtime QUEtiapine XR (SEROQUEL XR) 300 mg 24 hr tablet Take 1 tablet by mouth daily at bedtime. 7 tablet 0 06/11/2016 Active take 1 tablet by marii th twice daily QUEtiapine (SEROQUEL) 100 mg tablet Take 100 mg by mouth twice daily. 0 Active Comment on above: Take 1 tablet by marii th daily at bedtime. Take two tablets by mouth at bedtime. Take 100 mg by mouth twice daily. Take 300 mg by mouth daily at bedtime. risperiDONE 3 mg oral tablet (9 sources) Atypical Antipsychotic Start: 0 take 3 mg by mouth twice daily Risperidone Active 3 MG PO TWICE A DAY July 08, 2020 3:08am take 1 tablet by mouth twice raymon ly risperiDONE (RISPERDAL) 2 mg tablet Take 2 mg by mouth twice daily. 0 Active Comment on above: Take 2 mg by mouth t wice daily. sAXagliptin 5 mg oral tablet (20 sources) Dipeptidyl Peptidase 4 Inhibitor Start: 6 take 1 tablet by mouth once daily Saxagliptin (Onglyza) 5 MG tablet Active 5 mg PO DAILY November 28, 2015 12:00am dm Comment on above: Take 1 tablet by marii th once daily. sennosides, long term 8.6 mg oral tablet (20 sources) Start: 0 Sennosides 1 TABLET tablet Active 2 {tbl} PO AT BEDTIME July 08, 2020 1:00am stool softener Start: 07-08-2020 take 2 tablets by mo [facility] at bedtime Sennosides Active 2 TABLET PO AT BEDTIME July 08, 2020 1:00am Start: 07-08-2020 take 2 tablets by mo [facility] once daily Sennosides Active 2 TABLET PO DAILY July 08, 2020 3:08am sertraline 50 mg oral tablet (20 sources) Serotonin Reuptake Inhibitor Start: 04-10-2022 take 1 tablet by mouth once daily Sertraline 50 mg Tablet Active 50 mg PO DAILY April 10, 2022 12:00am Start: 08-05-2014 End: 11-28-2015 take 1 tablet by mouth once daily at bedtime Sertraline (Zoloft) 25 MG tablet Discontinued 25 mg PO .QHS 30 0 August 05, 2014 1:00am November 28, 2015 7:34am sodium chloride 1000 mg oral tablet (7 sources) Start: 08-10-2020 take 1 g by mouth twice daily Sodium Chloride Active 1 GM PO TWICE A DAY August 10, 2020 12:58pm tamsulosin hydrochloride 0.4 mg oral capsule (9 sources) alpha-Adrenergi c Octaviano Start: 08-10-2020 take 0.4 mg by mouth once daily Tamsulosin Active 0.4 MG PO DAILY August 10, 2020 11:15am take 0.4 mg by mouth twice daily tamsulosin (FLOMAX) 0.4 mg Take 0.4 mg by mouth twice daily. 0 Active Comment on above: Take 0.4 mg by mouth twice daily. vitamin b12 0.5 mg oral tablet (20 sources) Vitamin B12 Start: 08-10-2020 take 2 tablets by mouth once daily Cyanocobalamin (Vitamin B-12) 500 MCG tablet Active 1000 ug PO DAILY@0800 30 0 August 10, 2020 1:00am Start: 08-10-2020 take 1000 ug by mout h once daily Cyanocobalamin (Vitamin B-12) Active 1000 MCG PO DAILY@0800 30 August 10, 2020 1:00am cyanocobalamin, vitamin B-12, 500 mcg chew Take by mouth. 0 Active Comment on above: Take by mouth. Completed/Discontinued Medications Medication Drug Class(es) Dates Sig (Normalized) Sig (Original) ergocalciferol, vitamin D2, (VITAMIN D2 ORAL) (2 sources) ergocalciferol, vitamin D2, (VITAMIN D2 ORAL) Take by mouth. 0 Active Comment on above: Take by mouth. ferrous sulfate 325 mg oral tablet (2 sources) take 1 tablet by mouth once daily at breakfast ferrous sulfate 325 mg (65 mg iron) tablet Take 325 mg by mouth daily with breakfast. 0 Active Comment on above: Take 325 mg by mouth daily with breakfast. glipiZIDE 10 mg oral tablet (2 sources) Sulfonylurea Start: 10-10-2015 take 2 tablets by mouth once daily glipiZIDE (GLUCOTROL) 10 mg tablet Take 2 tablets by mouth once daily. 180 tablet 3 10/10/2015 Active Comment on above: Take 2 tablets by mo ut once daily. insulin glargine,hum.rec. anlog (LANTUS SUBCUTANEOUS) (2 sources) insulin glargine,hum.rec.a nlog (LANTUS SUBCUTANEOUS) Inject subcutaneously. 0 Active Comment on above: Inject subcutaneousl y. lisinopril 40 mg oral tablet (20 sources) Angiotensin Converting Enzyme Inhibitor Start: 08-10-2020 End: 08-10-2020 Lisinopril 40 MG tablet Discontinued 20 mg PO DAILY 0 August 10, 2020 11:20am August 10, 2020 12:59pm blood pressure Hold for 7 days Start: 08-10-2020 End: 08-10-2020 take 20 mg by mouth once daily Lisinopril Discontinued 20 MG PO DAILY 0 August 10, 2020 11:20am August 10, 2020 12:59pm Hold for 7 days Start: 12-27-2015 End: 08-10-2020 take 1 tablet by mouth once daily Lisinopril 40 MG tablet Discontinued 40 mg PO DAILY July 08, 2020 1:00am August 10, 2020 11:20am blood pressure Comment on above: Take 1 tablet by marii th once daily. meloxicam 7.5 mg oral tablet (2 sources) Nonsteroidal Anti-inflammatory Drug take 1 tablet by mouth once daily meloxicam (MOBIC) 7.5 mg tablet Take 7.5 mg by mouth once daily. 0 Active Comment on above: Take 7.5 mg by mouth once daily. 24 hr metFORMIN hydrochloride 500 mg extended release oral tablet (2 sources) Biguanide Start: take 1 tablet by mouth twice daily at dinner metFORMIN ER (GLUCOPHAGE XR) 500 mg 24 hr tablet Take 1 tablet by mouth twice daily with breakfast and dinner 60 tablet 5 03/26/2016 Active Comment on above: Take 1 tablet by marii th twice daily with breakfast and dinner pioglitazone 15 mg oral tablet (20 sources) Peroxisome Proliferator Receptor alpha Agonist, Peroxisome Proliferator Receptor gamma Agonist, Thiazolidinedione Start: End: take 1 tablet by mouth once daily Pioglitazone 15 MG tablet Discontinued 15 mg PO DAILY June 04, 2016 12:00am August 10, 2020 11:19am dm Comment on above: Take 1 tablet by marii th once daily. potassium chloride 20 meq powder for oral solution (2 sources) potassium chlori de (KLOR-CON) 20 mEq packet Take by mouth twice daily. 0 Active Comment on above: Take by mouth twice daily. raNITIdine 150 mg oral tablet (2 sources) Histamine-2 Receptor Antagonist Start: 016 take 1 tablet by mouth once daily ranitidine (ZANTAC) 150 mg tablet Take 1 tablet by mouth once daily. 90 tablet 1 04/03/2016 Active Comment on above: Take 1 tablet by marii th once daily. simvastatin 80 mg oral tablet (2 sources) HMG-CoA Reductase Inhibitor Start: 016 take 1 tablet by mouth once daily at bedtime simvastatin (ZOCOR) 80 mg tablet Take 1 tablet by mouth daily at bedtime. 30 tablet 11 03/04/2016 Active Comment on above: Take 1 tablet by marii th daily at bedtime. divalproex sodium 500 mg delayed release oral tablet (2 sources) Mood Stabilizer, Anti-epileptic Agent take 2 tablets by mouth once daily at bedtime divalproex DR (DEPAKOTE) 500 mg EC tablet Take 1,000 mg by mouth daily at bedtime. 0 Active Comment on above: Take 1,000 mg by marii th daily at bedtime. Problems Active Problems Problem Classification Problem Date Documented Date Episodic/Chronic Anxiety disorders (20 sources) Anxiety; Translations: [Anxiety disorder, unspecified] 03-15-2016 Chronic Cardiac dysrhythmias (2 sources) Unspecified atrial fibrillation; Translations: [Unspecified atrial fibrillation] Onset: 08-04-2024 Chronic Congestive heart failure; nonhypertensive (2 sources) Heart failure, unspecified; Translations: [Heart failure, unspecified] Onset: 08-11-2024 Chronic Diabetes mellitus with complications (1 source) Type 2 diabetes mellitus with unspecified complications; Translations: [Type 2 diabetes mellitus with unspecified complications] Onset: 05-24-2025 Chronic Diabetes mellitus without complication (20 sources) Type 2 diabetes mellitus; Translations: [Type 2 diabetes mellitus without complications] Onset: 05-22-2015 06-12-2015 Chronic Disorders of lipid metabolism (20 sources) Hyperlipidemia; Translations: [Hyperlipidemia, unspecified] 08-03-2020 Chronic Esophageal disorders (20 sources) Gastroesophageal reflux disease; Translations: [Gastro-esophageal reflux disease without esophagitis] Onset: 06-12-2015 06-12-2015 Chronic Essential hypertension (20 sources) Hypertensive disorder; Translations: [Essential (primary) hypertension] Onset: 06-12-2015 06-12-2015 Chronic Fluid and electrolyte disorders (20 sources) Hyponatremia; Translations: [Hypo-osmolality and hyponatremia] 08-03-2020 Episodic Genitourinary symptoms and ill-defined conditions (2 sources) Retention of urine; Translations: [Retention of urine, unspecified] Episodic Hyperplasia of prostate (1 source) Benign prostatic hypertrophy with outflow obstruction; Translations: [Benign prostatic hyperplasia with lower urinary tract symptoms] Chronic Mood disorders (20 sources) Bipolar disorder; Translations: [Bipolar disorder, unspecified] Onset: 03-11-2015 08-04-2021 Chronic Nutritional deficiencies (1 source) Vitamin D deficiency, unspecified; Translations: [Vitamin D deficiency, unspecified] Onset: 03-05-2025 Chronic Open wounds of head; neck; and trunk (20 sources) Scalp laceration; Translations: [Laceration without foreign body of scalp, initial encounter] 07-10-2020 Episodic Other aftercare (2 sources) Other assisted (current) drug therapy; Translations: [Other assisted (current) drug therapy] Onset: 02-03-2025 Episodic Other diseases of bladder and urethra (1 source) Neuromuscular dysfunction of bladder, unspecified; Translations: [Neuromuscular dysfunction of bladder, unspecified] Onset: 04-24-2025 Chronic Residual codes; unclassified (18 sources) Urinary catheter in situ; Translations: [Presence of other specified devices] 04-19-2022 Episodic Schizophrenia and other psychotic disorders (2 sources) Catatonic schizophrenia; 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] Onset: 03-11-2015 06-12-2015 Chronic Sprains and strains (20 sources) Strain of flexor muscle of hip; Translations: [Strain of muscle, fascia and tendon of right hip, initial encounter] 07-10-2020 Episodic Thyroid disorders (20 sources) Hypothyroidism; Translations: [Hypothyroidism, unspecified] Onset: 10-10-2015 10-10-2015 Chronic Past or Other Problems Problem Classification Problem Date Documented Da te Episodic/Chronic Deficiency and other anemia (2 sources) Anemia; Translations: [Anemia, unspecified] Onset: 01-25-2016 01-25-2016 Episodic Deficiency and other anemia (1 source) Anemia, unspecified; Translations: [Anemia, unspecified] Onset: 12-29-2024 Episodic Mycoses (2 sources) Onychomycosis due to dermatophyte ; Translations: [Tinea unguium] Onset: 11-16-2005 06-12-2015 Episodic Noninfectious gastroenteritis (2 sources) Chronic diarrhea; Translations: [Noninfective gastroenteritis and colitis, unspecified] Onset: 06-12-2015 06-12-2015 Episodic Nutritional deficiencies (1 source) Iron deficiency; Translations: [Iron deficiency] Onset: 12-29-2024 Episodic Other gastrointestinal disorders (2 sources) Incontinence of feces; Translations: [Full incontinence of feces] Onset: 10-10-2015 10-10-2015 Episodic Other screening for suspected conditions (not mental disorders or infectious disease) (2 sources) Patient encounter status; Translations: [Encounter for screening for malignant neoplasm of prostate] Onset: 02-21-2016 02-21-2016 Episodic Residual codes; unclassified (2 sources) Bilateral lower limb edema; Translations: [Localized edema] Onset: 12-20-2015 12-20-2015 Episodic Unclassified (20 sources) Severe hyponatremia 04-15-2022 Results Test Name Value Interpretation Reference Range Facility CBC-Complete Blood Cnt No Di ffon 05-04-2025 Erythrocyte distribution width (RBC) [Ratio] 16.5 % High 11.6-14.6 [facility] Comment on above: Order Comment: 114.1 Performed By: #### L 501.9520, L500.4100, L503.0105, [id number] #### [facility] [address] [place], [address] Hematocrit (Bld) [Volume fraction] 25.8 % Low 40-54 [facility] Comment on above: Order Comment: 114.1 Performed By: #### L [id number], L500.4100, L503.0105, [id number] #### [facility] [address] [place], [address] Hemoglobin (Bld) [Mass/Vol] 8.4 g/dL Low 13.0-16.5 [facility] Comment on above: Order Comment: 114.1 Performed By: #### L [id number], L500.4100, L503.0105, [id number] #### [facility] [address] [place], [address] MCH (RBC) [Entitic mass] 29.1 pg Normal 27.0-32.0 [facility] Comment on above: Order Comment: 114.1 Performed By: #### L [id number], L500.4100, L503.0105, [id number] #### [facility] [address] [place], [address] MCHC (RBC) [Mass/Vol] 32.6 g/dL Normal 32-36 [facility] Comment on above: Order Comment: 114.1 Performed By: #### L [id number], L500.4100, L503.0105, [id number] #### [facility] [address] [place], [address] MCV (RBC) [Entitic vol] 89.3 fL Normal 80-94 [facility] Comment on above: Order Comment: 114.1 Performed By: #### L [id number], L500.4100, L503.0105, [id number] #### [facility] [address] [place], [address] Platelet mean volume (Bld) [Entitic vol] 10.6 fL Normal 6.2-12.0 [facility] Comment on above: Order Comment: 114.1 Performed By: #### L [id number], L500.4100, L503.0105, [id number] #### [facility] [address] [place], [address] Platelets (Bld) [#/Vol] 277 10*3/uL Normal 150-450 [facility] Comment on above: Order Comment: 114.1 Performed By: #### L [id number], L500.4100, L503.0105, [id number] #### [facility] [address] [place], [address] RBC (Bld) [#/Vol] 2.89 10*6/uL Low 4.6-6.2 [facility] Comment on above: Order Comment: 114.1 Performed By: #### L [id number], L500.4100, L503.0105, [id number] #### [facility] [address] [place], [address] RDW SD 53.7 fl High 35.1-43.9 [facility] Comment on above: Order Comment: 114.1 Performed By: #### L [id number], L500.4100, L503.0105, [id number] #### [facility] [address] [place], [address] WBC (Bld) [#/Vol] 5.2 10*3/uL Normal 4.4-11.0 [facility] Comment on above: Order Comment: 114.1 Performed By: #### L [id number], L500.4100, L503.0105, [id number] #### [facility] [address] [place], [address] Ferritinon 05-04-2025 Ferritin [Mass/Vol] 30 ng/mL Low 37-417 [facility] Comment on above: Order Comment: 114.1 Performed By: #### L [id number], L500.4100, L503.0105, [id number] #### [facility] [address] [place], [address] Iron+Iron Binding Capacityon 05-04-2025 TIBC 168 ug/dL Low 250-450 [facility] Comment on above: Order Comment: 114.1 Performed By: #### L [id number], L500.4100, L503.0105, [id number] #### [facility] [address] [place], [address] Urine Cultureon 04-09-2025 [facility] Pending Escherichia coli [place] Count >100,000 Enterococcus faecalis Enterococcus faecalis Escherichia coli: REACTION Ampicillin Islt SHIRA <=2 S Ampicillin+Sulbac Islt SHIRA <=2 Cefepime Islt SHIRA <=0.12 S cefTRIAXone Islt SHIRA <=0.25 S Ciprofloxacin Islt SHIRA >=4 R B-Lactamase Extended Susc Islt NEG Gentamicin Islt SHIRA <=1 S levoFLOXacin Islt SHIRA >=8 R Meropenem Islt SHIRA <=0.25 S Nitrofurantoin Islt SHIRA <=16 S Pip+Tazo Islt SHIRA <=4 S TMP SMX Islt SHIRA <=20 S Enterococcus faecalis: REACTION Ampicillin Islt SHIRA <=2 S Ciprofloxacin Islt SHIRA <=0.5 Gentamicin Synergy Susc Islt SYN-S S levoFLOXacin Islt SHIRA 0.5 S Linezolid Islt SHIRA 2 S Nitrofurantoin Islt SHIRA <=16 S Streptomycin High Pot Susc Islt SYN-S S Tetracycline Islt SHIRA >=16 R Vancomycin Islt SHIRA 2 S Normal [facility] Comment on above: Performed By: #### L [id number], L500.4100, L503.0105, [id number] #### [facility] [address] [place], [address] CBC-Complete Blood Cnt No Di ffon 04-03-2025 Erythrocyte distribution width (RBC) [Ratio] 16.4 % High 11.6-14.6 [facility] Comment on above: Order Comment: 114.1 Performed By: #### L [id number], L500.4100, L503.0105, [id number] #### [facility] [address] [place], [address] Hematocrit (Bld) [Volume fraction] 25.7 % Low 40-54 [facility] Comment on above: Order Comment: 114.1 Performed By: #### L [id number], L500.4100, L503.0105, [id number] #### [facility] [address] [place], [address] Hemoglobin (Bld) [Mass/Vol] 8.2 g/dL Low 13.0-16.5 [facility] Comment on above: Order Comment: 114.1 Performed By: #### L [id number], L500.4100, L503.0105, [id number] #### [facility] [address] [place], [address] MCH (RBC) [Entitic mass] 27.9 pg Normal 27.0-32.0 [facility] Comment on above: Order Comment: 114.1 Performed By: #### L [id number], L500.4100, L503.0105, [id number] #### [facility] [address] [place], [address] MCHC (RBC) [Mass/Vol] 31.9 g/dL Low 32-36 [facility] Comment on above: Order Comment: 114.1 Performed By: #### L [id number], L500.4100, L503.0105, [id number] #### [facility] [address] [place], [address] MCV (RBC) [Entitic vol] 87.4 fL Normal 80-94 [facility] Comment on above: Order Comment: 114.1 Performed By: #### L [id number], L500.4100, L503.0105, L501.9985 #### [facility] [address] [place], [address] Platelet mean volume (Bld) [Entitic vol] 10.4 fL Normal 6.2-12.0 [facility] Comment on above: Order Comment: 114.1 Performed By: #### L [id number], L500.4100, L503.0105, [id number] #### [facility] [address] [place], [address] Platelets (Bld) [#/Vol] 276 10*3/uL Normal 150-450 [facility] Comment on above: Order Comment: 114.1 Performed By: #### L [id number], L500.4100, L503.0105, [id number] #### [facility] [address] [place], [address] RBC (Bld) [#/Vol] 2.94 10*6/uL Low 4.6-6.2 [facility] Comment on above: Order Comment: 114.1 Performed By: #### L [id number], L500.4100, L503.0105, [id number] #### [facility] [address] [place], [address] RDW SD 52.5 fl High 35.1-43.9 [facility] Comment on above: Order Comment: 114.1 Performed By: #### L [id number], L500.4100, L503.0105, [id number] #### [facility] [address] [place], [address] WBC (Bld) [#/Vol] 5.9 10*3/uL Normal 4.4-11.0 [facility] Comment on above: Order Comment: 114.1 Performed By: #### L [id number], L500.4100, L503.0105, L501.9985 #### [facility] [address] [place], [address] Basic Metabolic Profile (BMP )on 03-05-2025 BUN/CRE 9.9 RATIO Low 10-20 [facility] Comment on above: Order Comment: 114.1 Performed By: #### L [id number], L500.4100, L503.0105, [id number] #### [facility] [address] [place], [address] Calcium [Mass/Vol] 8.3 mg/dL Normal 7.6-11.0 [facility] Comment on above: Order Comment: 114.1 Performed By: #### L [id number], L500.4100, L503.0105, L501.9985 #### [facility] [address] [place], [address] Chloride [Moles/Vol] 102 mmol/L Normal 98-108 [facility] Comment on above: Order Comment: 114.1 Performed By: #### L [id number], L500.4100, L503.0105, L501.9985 #### [facility] [address] [place], [address] CO2 [Moles/Vol] 27.0 mmol/L Normal 21.0-32.0 [facility] Comment on above: Order Comment: 114.1 Performed By: #### L [id number], L500.4100, L503.0105, [id number] #### [facility] [address] [place], [address] Creatinine [Mass/Vol] 1.89 mg/dL High 0.70-1.20 [facility] Comment on above: Order Comment: 114.1 Performed By: #### L [id number], L500.4100, L503.0105, L501.9985 #### [facility] [address] [place], [address] GAP 9 Normal 5-15 [facility] Comment on above: Order Comment: 114.1 Performed By: #### L [id number], L500.4100, L503.0105, L501.9985 #### [facility] [address] [place], [address] GFR/1.73 sq M.predicted among non-blacks MDRD (S/P/Bld) [Vol rate/Area] 36 mL/min/{1.73_m2} Low >60 [facility] Comment on above: Order Comment: 114.1 Result Comment: mL/m in/1.73m2 CKD-EPI Creatinine Equation (2020) Performed By: #### L [id number], L500.4100, L503.0105, L501.9985 #### [facility] [address] [place], [address] Glucose [Mass/Vol] 100 mg/dL High 70-99 [facility] Comment on above: Order Comment: 114.1 Performed By: #### L [id number], L500.4100, L503.0105, L501.9985 #### [facility] [address] [place], [address] Potassium [Moles/Vol] 4.1 mmol/L Normal 3.3-5.1 [facility] Comment on above: Order Comment: 114.1 Performed By: #### L [id number], L500.4100, L503.0105, L501.9985 #### [facility] [address] [place], [address] Sodium [Moles/Vol] 137 mmol/L Normal 133-145 [facility] Comment on above: Order Comment: 114.1 Performed By: #### L [id number], L500.4100, L503.0105, L501.9985 #### [facility] [address] [place], [address] Urea nitrogen [Mass/Vol] 19 mg/dL Normal 4-19 [facility] Comment on above: Order Comment: 114.1 Performed By: #### L [id number], L500.4100, L503.0105, L501.9985 #### [facility] [address] [place], [address] CBC W/Diff, Automatedon 07-2 Absolute Lymph 2.04 X10 3/uL Normal 0.83-4.51 [facility] Comment on above: Order Comment: 114.1 Performed By: #### L [id number], L500.4100, L503.0105, L501.9985 #### [facility] [address] [place], [address] Absolute Neut 3.4 X10 3/uL Normal 2.0-7.7 [facility] Comment on above: Order Comment: 114.1 Performed By: #### L [id number], L500.4100, L503.0105, L501.9985 #### [facility] [address] [place], [address] Basophils/100 WBC (Bld) 0.2 % Normal 0-1 [facility] Comment on above: Order Comment: 114.1 Performed By: #### L [id number], L500.4100, L503.0105, L501.9985 #### [facility] [address] [place], [address] Eosinophils/100 WBC (Bld) 1.0 % Normal 0-5 [facility] Comment on above: Order Comment: 114.1 Performed By: #### L [id number], L500.4100, L503.0105, L501.9985 #### [facility] [address] [place], [address] Erythrocyte distribution width (RBC) [Ratio] 15.7 % High 11.6-14.6 [facility] Comment on above: Order Comment: 114.1 Performed By: #### L 501.9520, L500.4100, L503.0105, L501.9985 #### [facility] [address] [place], [address] Hematocrit (Bld) [Volume fraction] 29.1 % Low 40-54 [facility] Comment on above: Order Comment: 114.1 Performed By: #### L [id number], L500.4100, L503.0105, L501.9985 #### [facility] [address] [place], [address] Hemoglobin (Bld) [Mass/Vol] 9.4 g/dL Low 13.0-16.5 [facility] Comment on above: Order Comment: 114.1 Performed By: #### L [id number], L500.4100, L503.0105, L501.9985 #### [facility] [address] [place], [address] IG% 0.300 Normal 0.0-0.9 [facility] Comment on above: Order Comment: 114.1 Result Comment: IG% - Immature Granulocytes (promyelocytes, myelocytes and metamyelocytes) > 1% indicates that a LEFT SHIFT is Present. Performed By: #### L 501.9520, L500.4100, L503.0105, L501.9985 #### [facility] [address] [place], [address] Lymphocytes/100 WBC (Bld) 33.2 % Normal 19-41 [facility] Comment on above: Order Comment: 114.1 Performed By: #### L 501.9520, L500.4100, L503.0105, L501.9985 #### [facility] [address] [place], [address] MCH (RBC) [Entitic mass] 27.4 pg Normal 27.0-32.0 [facility] Comment on above: Order Comment: 114.1 Performed By: #### L 501.9520, L500.4100, L503.0105, L501.9985 #### [facility] [address] [place], [address] MCHC (RBC) [Mass/Vol] 32.3 g/dL Normal 32-36 [facility] Comment on above: Order Comment: 114.1 Performed By: #### L 501.9520, L500.4100, L503.0105, L501.9985 #### [facility] [address] [place], [address] MCV (RBC) [Entitic vol] 84.8 fL Normal 80-94 [facility] Comment on above: Order Comment: 114.1 Performed By: #### L 501.9520, L500.4100, L503.0105, L501.9985 #### [facility] [address] [place], [address] Monocytes/100 WBC (Bld) 10.4 % High 0-10 [facility] Comment on above: Order Comment: 114.1 Performed By: #### L 501.9520, L500.4100, L503.0105, L501.9985 #### [facility] [address] [place], [address] Neutrophils/100 WBC (Bld) 54.9 % Normal 47-70 [facility] Comment on above: Order Comment: 114.1 Performed By: #### L [id number], L500.4100, L503.0105, L501.9985 #### [facility] [address] [place], [address] Nucleated RBC (Bld) [#/Vol] 0 10*3/uL Normal 0-5 [facility] Comment on above: Order Comment: 114.1 Performed By: #### L 501.9520, L500.4100, L503.0105, L501.9985 #### [facility] [address] [place], [address] Platelet mean volume (Bld) [Entitic vol] 10.3 fL Normal 6.2-12.0 [facility] Comment on above: Order Comment: 114.1 Performed By: #### L [id number], L500.4100, L503.0105, L501.9985 #### [facility] [address] [place], [address] Platelets (Bld) [#/Vol] 255 10*3/uL Normal 150-450 [facility] Comment on above: Order Comment: 114.1 Performed By: #### L [id number], L500.4100, L503.0105, L501.9985 #### [facility] [address] [place], [address] RBC (Bld) [#/Vol] 3.43 10*6/uL Low 4.6-6.2 [facility] Comment on above: Order Comment: 114.1 Performed By: #### L 501.9520, L500.4100, L503.0105, L501.9985 #### [facility] [address] [place], [address] RDW SD 48.3 fl High 35.1-43.9 [facility] Comment on above: Order Comment: 114.1 Performed By: #### L 501.9520, L500.4100, L503.0105, L501.9985 #### [facility] [address] [place], [address] WBC (Bld) [#/Vol] 6.1 10*3/uL Normal 4.4-11.0 [facility] Comment on above: Order Comment: 114.1 Performed By: #### L [id number], L500.4100, L503.0105, L501.9985 #### [facility] [address] [place], [address] Hemoglobin A1con 03-05-2025 HbA1c (Bld) [Mass fraction] 6.6 % High <=5.6 [facility] Comment on above: Order Comment: 114.1 Result Comment: Norm al < 5.7 % Prediabetic 5.7 - 6.4 % Diabetic >or= 6.5 % Please note range changes. Performed By: #### L 501.9520, L500.4100, L503.0105, L501.9985 #### [facility] [address] [place], [address] Lipid Profileon 03-05-2025 CHOL:HDL 2.78 Normal [facility] Comment on above: Order Comment: 114.1 Performed By: #### L 501.9520, L500.4100, L503.0105, L501.9985 #### [facility] [address] [place], [address] Cholesterol [Mass/Vol] 113 mg/dL Normal <=200 [facility] Comment on above: Order Comment: 114.1 Result Comment: Chol esterol level, Desirable <200 mg/dL Borderline high cholesterol 200-239 mg/dL High cholesterol >=240 mg/dL Recommendations of the NCEP Adult Treatment Panel for the following risk-cutoff thresholds for the [place] population. Performed By: #### L 501.9520, L500.4100, L503.0105, L501.9985 #### [facility] [address] [place], [address] Cholesterol in HDL [Mass/Vol] 41 mg/dL Normal [facility] Comment on above: Order Comment: 114.1 Result Comment: Ana Paula onal Cholesterol Education Program (NCEP) guidelines: <40 mg/dL: Low HDL-cholesterol (major risk factor for CHD) >= 60 mg/dL: High HDL-cholesterol (negative risk factor for CHD) HDL-cholesterol is affected by a number of factors, e.g. smoking, exercise, hormones, sex and age. Performed By: #### L 501.9520, L500.4100, L503.0105, L501.9985 #### [facility] [address] [place], [address] Cholesterol in LDL [Mass/Vol] 59 mg/dL Normal [facility] Comment on above: Order Comment: 114.1 Result Comment: Bord wnbiet=016-704 mg/dL Higher Qbbd=711 mg/dL or greater Friedwald Equation for LDL-C Performed By: #### L 501.9520, L500.4100, L503.0105, L501.9985 #### [facility] [address] [place], [address] Cholesterol in VLDL [Mass/Vol] 13 mg/dL Normal 5-40 [facility] Comment on above: Order Comment: 114.1 Performed By: #### L [id number], L500.4100, L503.0105, L501.9985 #### [facility] [address] [place], [address] Triglyceride [Mass/Vol] 67 mg/dL Normal [facility] Comment on above: Order Comment: 114.1 Result Comment: The drugs N-Acetylcysteine and Metamizole may falsely depress this assay. Normal range: <150 mg/dL Borderline High: 150-199 mg/dL High: 200-499 mg/dL Very High: >500 mg/dL Performed By: #### L [id number], L500.4100, L503.0105, L501.9985 #### [facility] [address] [place], [address] Thyroid Stim Hormone (TSH)on 03-05-2025 TSH 1.520 uIU/mL Normal 0.300-4.200 [facility] Comment on above: Order Comment: 114.1 Performed By: #### L [id number], L500.4100, L503.0105, L501.9985 #### [facility] [address] [place], [address] Vitamin B12on 03-05-2025 Cobalamin (Vitamin B12) [Mass/Vol] 474 pg/mL Normal 180-914 [facility] Comment on above: Order Comment: 114.1 Performed By: #### L [id number], L500.4100, L503.0105, L501.9985 #### [facility] [address] [place], [address] CBC-Complete Blood Cnt No Di ffon 02-01-2025 Erythrocyte distribution width (RBC) [Ratio] 15.5 % High 11.6-14.6 [facility] Comment on above: Performed By: #### L 501.9520, L500.4100, L503.0105, L501.9985 #### [facility] [address] [place], [address] Hematocrit (Bld) [Volume fraction] 30.1 % Low 40-54 [facility] Comment on above: Performed By: #### L 501.9520, L500.4100, L503.0105, L501.9985 #### [facility] [address] [place], [address] Hemoglobin (Bld) [Mass/Vol] 9.5 g/dL Low 13.0-16.5 [facility] Comment on above: Performed By: #### L [id number], L500.4100, L503.0105, L501.9985 #### [facility] [address] [place], [address] MCH (RBC) [Entitic mass] 27.4 pg Normal 27.0-32.0 [facility] Comment on above: Performed By: #### L [id number], L500.4100, L503.0105, L501.9985 #### [facility] [address] [place], [address] MCHC (RBC) [Mass/Vol] 31.6 g/dL Low 32-36 [facility] Comment on above: Performed By: #### L 501.9520, L500.4100, L503.0105, L501.9985 #### [facility] [address] [place], [address] MCV (RBC) [Entitic vol] 86.7 fL Normal 80-94 [facility] Comment on above: Performed By: #### L [id number], L500.4100, L503.0105, L501.9985 #### [facility] [address] [place], [address] Platelet mean volume (Bld) [Entitic vol] 10.1 fL Normal 6.2-12.0 [facility] Comment on above: Performed By: #### L [id number], L500.4100, L503.0105, L501.9985 #### [facility] [address] [place], [address] Platelets (Bld) [#/Vol] 308 10*3/uL Normal 150-450 [facility] Comment on above: Performed By: #### L [id number], L500.4100, L503.0105, L501.9985 #### [facility] [address] [place], [address] RBC (Bld) [#/Vol] 3.47 10*6/uL Low 4.6-6.2 [facility] Comment on above: Performed By: #### L [id number], L500.4100, L503.0105, L501.9985 #### [facility] [address] [place], [address] RDW SD 49.1 fl High 35.1-43.9 [facility] Comment on above: Performed By: #### L [id number], L500.4100, L503.0105, L501.9985 #### [facility] [address] [place], [address] WBC (Bld) [#/Vol] 6.3 10*3/uL Normal 4.4-11.0 [facility] Comment on above: Performed By: #### L [id number], L500.4100, L503.0105, L501.9985 #### [facility] [address] [place], [address] Erythrocyte distribution wid th ratioOrdered By: Aura Sky on 02-01-2025 Erythrocyte distribution width (RBC) [Ratio] 15.5 % High 11.6-14.6 [facility] Erythrocyte distribution wid th standard deviationOrdered By: Aura Sky on 02-01-2025 Erythrocyte distribution width (RBC) [Ratio] 49.1 fl High 35.1-43.9 [facility] Hematocrit Auto (Bld) [Volum e fraction]Ordered By: Aura Sky on 02-01-2025 Hematocrit (Bld) [Volume fraction] 30.1 % Low 40-54 [facility] Hemoglobin measurementOrdere d By: Aura Sky on 02-01-2025 Hemoglobin (Bld) [Mass/Vol] 9.5 g/dL Low 13.0-16.5 [facility] MCV (mean corpuscular volume ) determinationOrdered By: Aura Sky on 02-01-2025 MCV (RBC) [Entitic vol] 86.7 fL 80-94 [facility] Mean corpuscular hemoglobin (MCH) determinationOrdered By: Aura Sky on 02-01-2025 MCH (RBC) [Entitic mass] 27.4 pg 27.0-32.0 [facility] Mean corpuscular hemoglobin concentration (MCHC) determinationOrdered By: Aura Sky on 02-01-2025 MCHC (RBC) [Mass/Vol] 31.6 g/dL Low 32-36 [facility] Mean platelet volume determi nationOrdered By: Aura Sky on 02-01-2025 Platelet mean volume (Bld) [Entitic vol] 10.1 fL 6.2-12.0 [facility] Platelet countOrdered By: Juanita Sky on 02-01-2025 Platelets (Bld) [#/Vol] 308 10*3/uL 150-450 [facility] RBC Auto (Bld) [#/Vol]Ordere d By: Aura Sky on 02-01-2025 RBC (Bld) [#/Vol] 3.47 10*6/uL Low 4.6-6.2 [facility] White blood cell (WBC) count Ordered By: Aura kSy on 02-01-2025 WBC (Bld) [#/Vol] 6.3 10*3/uL 4.4-11.0 [facility] CBC-Complete Blood Cnt No Di ffon 01-02-2025 Erythrocyte distribution width (RBC) [Ratio] 15.9 % High 11.6-14.6 [facility] Comment on above: Order Comment: 114.1 Performed By: #### L [id number], L500.4100, L503.0105, L501.9985 #### [facility] [address] [place], [address] Hematocrit (Bld) [Volume fraction] 30.0 % Low 40-54 [facility] Comment on above: Order Comment: 114.1 Performed By: #### L [id number], L500.4100, L503.0105, L501.9985 #### [facility] [address] [place], [address] Hemoglobin (Bld) [Mass/Vol] 9.4 g/dL Low 13.0-16.5 [facility] Comment on above: Order Comment: 114.1 Performed By: #### L [id number], L500.4100, L503.0105, L501.9985 #### [facility] [address] [place], [address] MCH (RBC) [Entitic mass] 27.1 pg Normal 27.0-32.0 [facility] Comment on above: Order Comment: 114.1 Performed By: #### L [id number], L500.4100, L503.0105, L501.9985 #### [facility] [address] [place], [address] MCHC (RBC) [Mass/Vol] 31.3 g/dL Low 32-36 [facility] Comment on above: Order Comment: 114.1 Performed By: #### L [id number], L500.4100, L503.0105, [id number] #### [facility] [address] [place], [address] MCV (RBC) [Entitic vol] 86.5 fL Normal 80-94 [facility] Comment on above: Order Comment: 114.1 Performed By: #### L [id number], L500.4100, L503.0105, L501.9985 #### [facility] [address] [place], [address] Platelet mean volume (Bld) [Entitic vol] 10.5 fL Normal 6.2-12.0 [facility] Comment on above: Order Comment: 114.1 Performed By: #### L [id number], L500.4100, L503.0105, L501.9985 #### [facility] [address] [place], [address] Platelets (Bld) [#/Vol] 376 10*3/uL Normal 150-450 [facility] Comment on above: Order Comment: 114.1 Performed By: #### L [id number], L500.4100, L503.0105, L501.9985 #### [facility] [address] [place], [address] RBC (Bld) [#/Vol] 3.47 10*6/uL Low 4.6-6.2 [facility] Comment on above: Order Comment: 114.1 Performed By: #### L [id number], L500.4100, L503.0105, L501.9985 #### [facility] [address] [place], [address] RDW SD 50.4 fl High 35.1-43.9 [facility] Comment on above: Order Comment: 114.1 Performed By: #### L [id number], L500.4100, L503.0105, L501.9985 #### [facility] [address] [place], [address] WBC (Bld) [#/Vol] 7.2 10*3/uL Normal 4.4-11.0 [facility] Comment on above: Order Comment: 114.1 Performed By: #### L [id number], L500.4100, L503.0105, L501.9985 #### [facility] [address] [place], [address] Erythrocyte distribution wid th ratioOrdered By: Aura Sky on 01-02-2025 Erythrocyte distribution width (RBC) [Ratio] 15.9 % High 11.6-14.6 [facility] Erythrocyte distribution wid th standard deviationOrdered By: Aura Sky on 01-02-2025 Erythrocyte distribution width (RBC) [Ratio] 50.4 fl High 35.1-43.9 [facility] Hematocrit Auto (Bld) [Volum e fraction]Ordered By: Aura Sky on 01-02-2025 Hematocrit (Bld) [Volume fraction] 30.0 % Low 40-54 [facility] Hemoglobin measurementOrdere d By: Aura Sky on 01-02-2025 Hemoglobin (Bld) [Mass/Vol] 9.4 g/dL Low 13.0-16.5 [facility] MCV (mean corpuscular volume ) determinationOrdered By: Aura Sky on 01-02-2025 MCV (RBC) [Entitic vol] 86.5 fL 80-94 [facility] Mean corpuscular hemoglobin (MCH) determinationOrdered By: Aura Sky on 01-02-2025 MCH (RBC) [Entitic mass] 27.1 pg 27.0-32.0 [facility] Mean corpuscular hemoglobin concentration (MCHC) determinationOrdered By: Aura Sky on 01-02-2025 MCHC (RBC) [Mass/Vol] 31.3 g/dL Low 32-36 [facility] Mean platelet volume determi nationOrdered By: Aura Sky on 01-02-2025 Platelet mean volume (Bld) [Entitic vol] 10.5 fL 6.2-12.0 [facility] Platelet countOrdered By: Juanita Sky on 01-02-2025 Platelets (Bld) [#/Vol] 376 10*3/uL 150-450 [facility] RBC Auto (Bld) [#/Vol]Ordere d By: Aura Sky on 01-02-2025 RBC (Bld) [#/Vol] 3.47 10*6/uL Low 4.6-6.2 [facility] White blood cell (WBC) count Ordered By: Aura Sky on 01-02-2025 WBC (Bld) [#/Vol] 7.2 10*3/uL 4.4-11.0 [facility] Stool Occult Blood iFOBon STOB Negative Normal [facility] Comment on above: Performed By: #### M 100.7900 #### [facility] [address] [place], [address] Stool gastrointestinal hemog lobin detection by immunologic methodOrdered By: Aura Sky on 12-08-2024 Lower GI hemoglobin IA Ql (Stl) [facility] Anion gap in Serum or Plasma Ordered By: Aura Sky on 11-30-2024 Anion gap [Moles/Vol] 7 mmol/L 5-15 [facility] BUN/creatinine ratioOrdered By: Aura Sky on 11-30-2024 Urea nitrogen/Creatinine [Mass ratio] 9.2 mg/mg Low 10-20 [facility] Basic Metabolic Profile (BMP )on 11-30-2024 BUN/CRE 9.2 RATIO Low - [facility] Comment on above: Order Comment: 114.1 Performed By: #### L [id number], L500.4100, L503.0105, L501.9985 #### [facility] [address] [place], [address] Calcium [Mass/Vol] 7.7 mg/dL Normal 7.6-11.0 [facility] Comment on above: Order Comment: 114.1 Performed By: #### L [id number], L500.4100, L503.0105, L501.9985 #### [facility] [address] [place], [address] Chloride [Moles/Vol] 103 mmol/L Normal 98-108 [facility] Comment on above: Order Comment: 114.1 Performed By: #### L [id number], L500.4100, L503.0105, L501.9985 #### [facility] [address] [place], [address] CO2 [Moles/Vol] 27.2 mmol/L Normal 21.0-32.0 [facility] Comment on above: Order Comment: 114.1 Performed By: #### L [id number], L500.4100, L503.0105, L501.9985 #### [facility] [address] [place], [address] Creatinine [Mass/Vol] 1.55 mg/dL High 0.70-1.20 [facility] Comment on above: Order Comment: 114.1 Performed By: #### L [id number], L500.4100, L503.0105, L501.9985 #### [facility] [address] [place], [address] GAP 7 Normal 5-15 [facility] Comment on above: Order Comment: 114.1 Performed By: #### L [id number], L500.4100, L503.0105, L501.9985 #### [facility] [address] [place], [address] GFR/1.73 sq M.predicted among non-blacks MDRD (S/P/Bld) [Vol rate/Area] 45 mL/min/{1.73_m2} Low >60 [facility] Comment on above: Order Comment: 114.1 Result Comment: mL/m in/1.73m2 CKD-EPI Creatinine Equation (2020) Performed By: #### L [id number], L500.4100, L503.0105, L501.9985 #### [facility] [address] [place], [address] Glucose [Mass/Vol] 92 mg/dL Normal 70-99 [facility] Comment on above: Order Comment: 114.1 Performed By: #### L [id number], L500.4100, L503.0105, L501.9985 #### [facility] [address] [place], [address] Potassium [Moles/Vol] 4.3 mmol/L Normal 3.3-5.1 [facility] Comment on above: Order Comment: 114.1 Performed By: #### L [id number], L500.4100, L503.0105, L501.9985 #### [facility] [address] [place], [address] Sodium [Moles/Vol] 137 mmol/L Normal 133-145 [facility] Comment on above: Order Comment: 114.1 Performed By: #### L [id number], L500.4100, L503.0105, L501.9985 #### [facility] [address] [place], [address] Urea nitrogen [Mass/Vol] 14 mg/dL Normal 4-19 [facility] Comment on above: Order Comment: 114.1 Performed By: #### L [id number], L500.4100, L503.0105, L501.9985 #### [facility] [address] [place], [address] CBC-Complete Blood Cnt No Di ffon 11-30-2024 Erythrocyte distribution width (RBC) [Ratio] 16.8 % High 11.6-14.6 [facility] Comment on above: Order Comment: 114.1 Performed By: #### L 501.9520, L500.4100, L503.0105, L501.9985 #### [facility] [address] [place], [address] Hematocrit (Bld) [Volume fraction] 28.4 % Low 40-54 [facility] Comment on above: Order Comment: 114.1 Performed By: #### L [id number], L500.4100, L503.0105, L501.9985 #### [facility] [address] [place], [address] Hemoglobin (Bld) [Mass/Vol] 8.8 g/dL Low 13.0-16.5 [facility] Comment on above: Order Comment: 114.1 Performed By: #### L [id number], L500.4100, L503.0105, L501.9985 #### [facility] [address] [place], [address] MCH (RBC) [Entitic mass] 27.2 pg Normal 27.0-32.0 [facility] Comment on above: Order Comment: 114.1 Performed By: #### L [id number], L500.4100, L503.0105, L501.9985 #### [facility] [address] [place], [address] MCHC (RBC) [Mass/Vol] 31.0 g/dL Low 32-36 [facility] Comment on above: Order Comment: 114.1 Performed By: #### L [id number], L500.4100, L503.0105, L501.9985 #### [facility] [address] [place], [address] MCV (RBC) [Entitic vol] 87.7 fL Normal 80-94 [facility] Comment on above: Order Comment: 114.1 Performed By: #### L [id number], L500.4100, L503.0105, L501.9985 #### [facility] [address] [place], [address] Platelet mean volume (Bld) [Entitic vol] 9.8 fL Normal 6.2-12.0 [facility] Comment on above: Order Comment: 114.1 Performed By: #### L [id number], L500.4100, L503.0105, L501.9985 #### [facility] [address] [place], [address] Platelets (Bld) [#/Vol] 382 10*3/uL Normal 150-450 [facility] Comment on above: Order Comment: 114.1 Performed By: #### L [id number], L500.4100, L503.0105, L501.9985 #### [facility] [address] [place], [address] RBC (Bld) [#/Vol] 3.24 10*6/uL Low 4.6-6.2 [facility] Comment on above: Order Comment: 114.1 Performed By: #### L [id number], L500.4100, L503.0105, L501.9985 #### [facility] [address] [place], [address] RDW SD 53.2 fl High 35.1-43.9 [facility] Comment on above: Order Comment: 114.1 Performed By: #### L [id number], L500.4100, L503.0105, L501.9985 #### [facility] [address] [place], [address] WBC (Bld) [#/Vol] 6.0 10*3/uL Normal 4.4-11.0 [facility] Comment on above: Order Comment: 114.1 Performed By: #### L [id number], L500.4100, L503.0105, L501.9985 #### [facility] [address] [place], [address] Carbon dioxide, total [Moles /volume] in Central venous bloodOrdered By: Aura Sky on 11-30-2024 CO2 [Moles/Vol] 27.2 mmol/L 21.0-32.0 [facility] Chloride assayOrdered By: Juanita Sky on 11-30-2024 Chloride [Moles/Vol] 103 mmol/L 98-108 [facility] Erythrocyte distribution wid th ratioOrdered By: Aura Sky on 11-30-2024 Erythrocyte distribution width (RBC) [Ratio] 16.8 % High 11.6-14.6 [facility] Erythrocyte distribution wid th standard deviationOrdered By: Aura Sky on 11-30-2024 Erythrocyte distribution width (RBC) [Ratio] 53.2 fl High 35.1-43.9 [facility] Ferritinon 11-30-2024 Ferritin [Mass/Vol] 26 ng/mL Low 37-417 [facility] Comment on above: Order Comment: 114.1 Performed By: #### L [id number], L500.4100, L503.0105, L501.9985 #### [facility] [address] [place], [address] Glomerular filtration rate ( GFR) estimation/1.73 sq m using serum, plasma, or whole bOrdered By: Aura Sky on 11-30-2024 GFR/1.73 sq M.predicted among non-blacks MDRD (S/P/Bld) [Vol rate/Area] 45 mL/min/{1.73_m2} Low >60 [facility] Comment on above: mL/min/1.73m2 CKD-EP I Creatinine Equation (2020) Hematocrit Auto (Bld) [Volum e fraction]Ordered By: Aura Sky on 11-30-2024 Hematocrit (Bld) [Volume fraction] 28.4 % Low 40-54 [facility] Hemoglobin measurementOrdere d By: Aura Sky on 11-30-2024 Hemoglobin (Bld) [Mass/Vol] 8.8 g/dL Low 13.0-16.5 [facility] MCV (mean corpuscular volume ) determinationOrdered By: Aura Sky on 11-30-2024 MCV (RBC) [Entitic vol] 87.7 fL 80-94 [facility] Mean corpuscular hemoglobin (MCH) determinationOrdered By: Aura Sky on 11-30-2024 MCH (RBC) [Entitic mass] 27.2 pg 27.0-32.0 [facility] Mean corpuscular hemoglobin concentration (MCHC) determinationOrdered By: Aura Sky on 11-30-2024 MCHC (RBC) [Mass/Vol] 31.0 g/dL Low 32-36 [facility] Mean platelet volume determi nationOrdered By: Aura Sky on 11-30-2024 Platelet mean volume (Bld) [Entitic vol] 9.8 fL 6.2-12.0 [facility] Platelet countOrdered By: Juanita Sky on 11-30-2024 Platelets (Bld) [#/Vol] 382 10*3/uL 150-450 [facility] Potassium measurement (mass/ volume)Ordered By: Aura Sky on 11-30-2024 Potassium (Unsp spec) [Mass/Vol] 4.3 mmol/L 3.3-5.1 [facility] RBC Auto (Bld) [#/Vol]Ordere d By: Aura Sky on 11-30-2024 RBC (Bld) [#/Vol] 3.24 10*6/uL Low 4.6-6.2 [facility] Serum creatinine measurement (mass/volume)Ordered By: Aura Sky on 11-30-2024 Creatinine [Mass/Vol] 1.55 mg/dL High 0.70-1.20 [facility] Serum glucose measurement (m ass/volume)Ordered By: Aura Sky on 11-30-2024 Glucose [Mass/Vol] 92 mg/dL 70-99 [facility] Serum or plasma calcium maria l urement (mass/volume)Ordered By: Aura Sky on 11-30-2024 Calcium [Mass/Vol] 7.7 mg/dL 7.6-11.0 [facility] Serum or plasma ferritin adryan surement (mass/volume)Ordered By: Aura Sky on 11-30-2024 Ferritin [Mass/Vol] 26 ng/mL Low 37-417 [facility] Serum or plasma urea nitroge n measurement (mass/volume)Ordered By: Aura Sky on 11-30-2024 Urea nitrogen [Mass/Vol] 14 mg/dL 4-19 [facility] Sodium levelOrdered By: Aura Sky on 11-30-2024 Sodium [Moles/Vol] 137 mmol/L 133-145 [facility] White blood cell (WBC) count Ordered By: Aura Sky on 11-30-2024 WBC (Bld) [#/Vol] 6.0 10*3/uL 4.4-11.0 [facility] CBC-Complete Blood Cnt No Di ffon 11-01-2024 Erythrocyte distribution width (RBC) [Ratio] 14.8 % High 11.6-14.6 [facility] Comment on above: Order Comment: 114.1 Performed By: #### L [id number], L500.4100, L503.0105, L501.9985 #### [facility] [address] [place], [address] Hematocrit (Bld) [Volume fraction] 27.8 % Low 40-54 [facility] Comment on above: Order Comment: 114.1 Performed By: #### L [id number], L500.4100, L503.0105, L501.9985 #### [facility] [address] [place], [address] Hemoglobin (Bld) [Mass/Vol] 8.7 g/dL Low 13.0-16.5 [facility] Comment on above: Order Comment: 114.1 Performed By: #### L [id number], L500.4100, L503.0105, L501.9985 #### [facility] [address] [place], [address] MCH (RBC) [Entitic mass] 26.6 pg Low 27.0-32.0 [facility] Comment on above: Order Comment: 114.1 Performed By: #### L [id number], L500.4100, L503.0105, L501.9985 #### [facility] [address] [place], [address] MCHC (RBC) [Mass/Vol] 31.3 g/dL Low 32-36 [facility] Comment on above: Order Comment: 114.1 Performed By: #### L 501.9520, L500.4100, L503.0105, L501.9985 #### [facility] [address] [place], [address] MCV (RBC) [Entitic vol] 85.0 fL Normal 80-94 [facility] Comment on above: Order Comment: 114.1 Performed By: #### L [id number], L500.4100, L503.0105, L501.9985 #### [facility] [address] [place], [address] Platelet mean volume (Bld) [Entitic vol] 10.3 fL Normal 6.2-12.0 [facility] Comment on above: Order Comment: 114.1 Performed By: #### L 501.9520, L500.4100, L503.0105, L501.9985 #### [facility] [address] [place], [address] Platelets (Bld) [#/Vol] 307 10*3/uL Normal 150-450 [facility] Comment on above: Order Comment: 114.1 Performed By: #### L [id number], L500.4100, L503.0105, L501.9985 #### [facility] [address] [place], [address] RBC (Bld) [#/Vol] 3.27 10*6/uL Low 4.6-6.2 [facility] Comment on above: Order Comment: 114.1 Performed By: #### L 501.9520, L500.4100, L503.0105, L501.9985 #### [facility] [address] [place], [address] RDW SD 45.7 fl High 35.1-43.9 [facility] Comment on above: Order Comment: 114.1 Performed By: #### L [id number], L500.4100, L503.0105, L501.9985 #### [facility] [address] [place], [address] WBC (Bld) [#/Vol] 5.8 10*3/uL Normal 4.4-11.0 [facility] Comment on above: Order Comment: 114.1 Performed By: #### L 501.9520, L500.4100, L503.0105, L501.9985 #### [facility] [address] [place], [place], [id number] Erythrocyte distribution wid th (RBC) [Ratio]Ordered By: Aura Sky on 11-01-2024 Erythrocyte distribution width (RBC) [Entitic vol] 45.7 fL High 35.1-43.9 [facility] Erythrocyte distribution wid th ratioOrdered By: Aura Sky on 11-01-2024 Erythrocyte distribution width (RBC) [Ratio] 14.8 % High 11.6-14.6 [facility] Erythrocyte distribution wid th standard deviationOrdered By: Aura Sky on 11-01-2024 Erythrocyte distribution width (RBC) [Ratio] 45.7 fl High 35.1-43.9 [facility] Hematocrit Auto (Bld) [Volum e fraction]Ordered By: Aura Sky on 11-01-2024 Hematocrit (Bld) [Volume fraction] 27.8 % Low 40-54 [facility] Hemoglobin measurementOrdere d By: Aura Sky on 11-01-2024 Hemoglobin (Bld) [Mass/Vol] 8.7 g/dL Low 13.0-16.5 [facility] MCV (mean corpuscular volume ) determinationOrdered By: Aura Sky on 11-01-2024 MCV (RBC) [Entitic vol] 85.0 fL 80-94 [facility] Mean corpuscular hemoglobin (MCH) determinationOrdered By: Aura Sky on 11-01-2024 MCH (RBC) [Entitic mass] 26.6 pg Low 27.0-32.0 [facility] Mean corpuscular hemoglobin concentration (MCHC) determinationOrdered By: Aura Sky on 11-01-2024 MCHC (RBC) [Mass/Vol] 31.3 g/dL Low 32-36 [facility] Mean platelet volume determi nationOrdered By: Aura Sky on 11-01-2024 Platelet mean volume (Bld) [Entitic vol] 10.3 fL 6.2-12.0 [facility] Platelet countOrdered By: Juanita Sky on 11-01-2024 Platelets (Bld) [#/Vol] 307 10*3/uL 150-450 [facility] RBC Auto (Bld) [#/Vol]Ordere d By: Aura Sky on 11-01-2024 RBC (Bld) [#/Vol] 3.27 10*6/uL Low 4.6-6.2 [facility] White blood cell (WBC) count Ordered By: Aura Sky on 11-01-2024 WBC (Bld) [#/Vol] 5.8 10*3/uL 4.4-11.0 [facility] CBC-Complete Blood Cnt No Di ffon 10-03-2024 Erythrocyte distribution width (RBC) [Ratio] 14.8 % High 11.6-14.6 [facility] Comment on above: Order Comment: 126.1 Performed By: #### L 100.0500 #### [facility] [address] [place], [address] Hematocrit (Bld) [Volume fraction] 29.3 % Low 40-54 [facility] Comment on above: Order Comment: 126.1 Performed By: #### L 100.0500 #### [facility] [address] [place], [address] Hemoglobin (Bld) [Mass/Vol] 9.0 g/dL Low 13.0-16.5 [facility] Comment on above: Order Comment: 126.1 Performed By: #### L 100.0500 #### [facility] [address] [place], [address] MCH (RBC) [Entitic mass] 27.1 pg Normal 27.0-32.0 [facility] Comment on above: Order Comment: 126.1 Performed By: #### L 100.0500 #### [facility] [address] [place], [address] MCHC (RBC) [Mass/Vol] 30.7 g/dL Low 32-36 [facility] Comment on above: Order Comment: 126.1 Performed By: #### L 100.0500 #### [facility] [address] [place], [address] MCV (RBC) [Entitic vol] 88.3 fL Normal 80-94 [facility] Comment on above: Order Comment: 126.1 Performed By: #### L 100.0500 #### [facility] [address] [place], [address] Platelet mean volume (Bld) [Entitic vol] 10.9 fL Normal 6.2-12.0 [facility] Comment on above: Order Comment: 126.1 Performed By: #### L 100.0500 #### [facility] [address] [place], [address] Platelets (Bld) [#/Vol] 234 10*3/uL Normal 150-450 [facility] Comment on above: Order Comment: 126.1 Performed By: #### L 100.0500 #### [facility] [address] [place], [address] RBC (Bld) [#/Vol] 3.32 10*6/uL Low 4.6-6.2 [facility] Comment on above: Order Comment: 126.1 Performed By: #### L 100.0500 #### [facility] [address] [place], [address] RDW SD 47.5 fl High 35.1-43.9 [facility] Comment on above: Order Comment: 126.1 Performed By: #### L 100.0500 #### [facility] [address] [place], [address] WBC (Bld) [#/Vol] 5.7 10*3/uL Normal 4.4-11.0 [facility] Comment on above: Order Comment: 126.1 Performed By: #### L 100.0500 #### [facility] [address] [place], [address] Erythrocyte distribution wid th (RBC) [Ratio]Ordered By: Aura Sky on 10-03-2024 Erythrocyte distribution width (RBC) [Entitic vol] 47.5 fL High 35.1-43.9 [facility] Erythrocyte distribution wid th ratioOrdered By: Aura Sky on 10-03-2024 Erythrocyte distribution width (RBC) [Ratio] 14.8 % High 11.6-14.6 [facility] Erythrocyte distribution wid th standard deviationOrdered By: Aura Sky on 10-03-2024 Erythrocyte distribution width (RBC) [Ratio] 47.5 fl High 35.1-43.9 [facility] Hematocrit Auto (Bld) [Volum e fraction]Ordered By: Aura Sky on 10-03-2024 Hematocrit (Bld) [Volume fraction] 29.3 % Low 40-54 [facility] Hemoglobin measurementOrdere d By: Aura Sky on 10-03-2024 Hemoglobin (Bld) [Mass/Vol] 9.0 g/dL Low 13.0-16.5 [facility] MCV (mean corpuscular volume ) determinationOrdered By: Aura Sky on 10-03-2024 MCV (RBC) [Entitic vol] 88.3 fL 80-94 [facility] Mean corpuscular hemoglobin (MCH) determinationOrdered By: Aura Sky on 10-03-2024 MCH (RBC) [Entitic mass] 27.1 pg 27.0-32.0 [facility] Mean corpuscular hemoglobin concentration (MCHC) determinationOrdered By: Aura Sky on 10-03-2024 MCHC (RBC) [Mass/Vol] 30.7 g/dL Low 32-36 [facility] Mean platelet volume determi nationOrdered By: Aura Sky on 10-03-2024 Platelet mean volume (Bld) [Entitic vol] 10.9 fL 6.2-12.0 [facility] Platelet countOrdered By: Juanita Sky on 10-03-2024 Platelets (Bld) [#/Vol] 234 10*3/uL 150-450 [facility] RBC Auto (Bld) [#/Vol]Ordere d By: Aura Sky on 10-03-2024 RBC (Bld) [#/Vol] 3.32 10*6/uL Low 4.6-6.2 [facility] White blood cell (WBC) count Ordered By: Aura Sky on 10-03-2024 WBC (Bld) [#/Vol] 5.7 10*3/uL 4.4-11.0 [facility] Basic Metabolic Profile (BMP )on 09-04-2024 BUN/CRE 9.0 RATIO Low 10-20 [facility] Comment on above: Order Comment: 114.1 Performed By: #### L 501.9520, L500.4100, L503.0105, L501.9985 #### [facility] [address] [place], [address] CA,Total 8.2 mg/dL Low 8.5-10.1 [facility] Comment on above: Order Comment: 114.1 Performed By: #### L [id number], L500.4100, L503.0105, L501.9985 #### [facility] [address] [place], [address] Chloride [Moles/Vol] 101 mmol/L Normal 98-107 [facility] Comment on above: Order Comment: 114.1 Performed By: #### L [id number], L500.4100, L503.0105, L501.9985 #### [facility] [address] [place], [address] CO2 [Moles/Vol] 29.0 mmol/L Normal 21.0-32.0 [facility] Comment on above: Order Comment: 114.1 Performed By: #### L [id number], L500.4100, L503.0105, L501.9985 #### [facility] [address] [place], [address] Creatinine [Mass/Vol] 1.66 mg/dL High 0.70-1.30 [facility] Comment on above: Order Comment: 114.1 Result Comment: The validity of the calculated GFR GFRAA in patients over 70 years has not been determined. Clinical correlation is essential. Performed By: #### L 501.9520, L500.4100, L503.0105, L501.9985 #### [facility] [address] [place], [address] EST GFR - AA 52 mL/min Low >60 [facility] Comment on above: Order Comment: 114.1 Result Comment: Afri can [place] GFR Calc Performed By: #### L [id number], L500.4100, L503.0105, L501.9985 #### [facility] [address] [place], [address] GAP 8 Normal 5-15 [facility] Comment on above: Order Comment: 114.1 Performed By: #### L [id number], L500.4100, L503.0105, L501.9985 #### [facility] [address] [place], [address] GFR/1.73 sq M.predicted among non-blacks MDRD (S/P/Bld) [Vol rate/Area] 43 mL/min/{1.73_m2} Low >60 [facility] Comment on above: Order Comment: 114.1 Result Comment: Non- GFR Calc Performed By: #### L [id number], L500.4100, L503.0105, L501.9985 #### [facility] [address] [place], [address] Glucose [Mass/Vol] 134 mg/dL High 74-106 [facility] Comment on above: Order Comment: 114.1 Result Comment: Fast ing Glucose result greater than or equal to 126 mg/dL suggests DIABETES MELLITUS per A.D.A. criteria. Performed By: #### L [id number], L500.4100, L503.0105, L501.9985 #### [facility] [address] [place], [address] Potassium [Moles/Vol] 3.9 mmol/L Normal 3.5-5.1 [facility] Comment on above: Order Comment: 114.1 Performed By: #### L [id number], L500.4100, L503.0105, L501.9985 #### [facility] [address] [place], [address] Sodium [Moles/Vol] 138 mmol/L Normal 136-145 [facility] Comment on above: Order Comment: 114.1 Performed By: #### L [id number], L500.4100, L503.0105, L501.9985 #### [facility] [address] [place], [address] Urea nitrogen [Mass/Vol] 15 mg/dL Normal 7-18 [facility] Comment on above: Order Comment: 114.1 Performed By: #### L [id number], L500.4100, L503.0105, L501.9985 #### [facility] [address] [place], [address] Blood urea nitrogen (BUN)/cr eatinine ratioOrdered By: Aura Sky on 09-04-2024 Urea nitrogen/Creatinine [Mass ratio] 9.0 mg/mg Low 10-20 [facility] CBC-Complete Blood Cnt No Di ffon 09-04-2024 Erythrocyte distribution width (RBC) [Ratio] 14.9 % High 11.6-14.6 [facility] Comment on above: Order Comment: 126-1 Performed By: #### L [id number], L500.4100, L100.0500, L501.9520, L500.2500, L503.0105 #### [facility] [address] [place], [address] Hematocrit (Bld) [Volume fraction] 29.4 % Low 40-54 [facility] Comment on above: Order Comment: 126-1 Performed By: #### L 501.9985, L500.4100, L100.0500, L501.9520, L500.2500, L503.0105 #### [facility] [address] [place], [address] Hemoglobin (Bld) [Mass/Vol] 9.1 g/dL Low 13.0-16.5 [facility] Comment on above: Order Comment: 126-1 Performed By: #### L [id number], L500.4100, L100.0500, L501.9520, L500.2500, L503.0105 #### [facility] [address] [place], [address] MCH (RBC) [Entitic mass] 27.1 pg Normal 27.0-32.0 [facility] Comment on above: Order Comment: 126-1 Performed By: #### L [id number], L500.4100, L100.0500, L501.9520, L500.2500, L503.0105 #### [facility] [address] [facility] [place], [address] MCHC (RBC) [Mass/Vol] 31.0 g/dL Low 32-36 [facility] Comment on above: Order Comment: 126-1 Performed By: #### L [id number], L500.4100, L100.0500, L501.9520, L500.2500, L503.0105 #### [facility] [address] [facility] [place], [address] MCV (RBC) [Entitic vol] 87.5 fL Normal 80-94 [facility] Comment on above: Order Comment: 126-1 Performed By: #### L 501.9985, L500.4100, L100.0500, L501.9520, L500.2500, L503.0105 #### [facility] [address] [facility] [place], [address] Platelet mean volume (Bld) [Entitic vol] 11.3 fL Normal 6.2-12.0 [facility] Comment on above: Order Comment: 126-1 Performed By: #### L 501.9985, L500.4100, L100.0500, L501.9520, L500.2500, L503.0105 #### [facility] [address] [place], [address] Platelets (Bld) [#/Vol] 228 10*3/uL Normal 150-450 [facility] Comment on above: Order Comment: 126-1 Performed By: #### L [id number], L500.4100, L100.0500, L501.9520, L500.2500, L503.0105 #### [facility] [address] [place], [address] RBC (Bld) [#/Vol] 3.36 10*6/uL Low 4.6-6.2 [facility] Comment on above: Order Comment: 126-1 Performed By: #### L [id number], L500.4100, L100.0500, L501.9520, L500.2500, L503.0105 #### [facility] [address] [place], [address] RDW SD 47.5 fl High 35.1-43.9 [facility] Comment on above: Order Comment: 126-1 Performed By: #### L 501.9985, L500.4100, L100.0500, L501.9520, L500.2500, L503.0105 #### [facility] [address] [place], [address] WBC (Bld) [#/Vol] 5.5 10*3/uL Normal 4.4-11.0 [facility] Comment on above: Order Comment: 126-1 Performed By: #### L [id number], L500.4100, L100.0500, L501.9520, L500.2500, L503.0105 #### [facility] [address] [place], [address] Carbon dioxide measurementOr dered By: Aura Sky on 09-04-2024 CO2 [Moles/Vol] 29.0 mmol/L 21.0-32.0 [facility] Chloride measurementOrdered By: Aura Sky on 09-04-2024 Chloride [Moles/Vol] 101 mmol/L 98-107 [facility] Erythrocyte distribution wid th (RBC) [Ratio]Ordered By: Aura Sky on 09-04-2024 Erythrocyte distribution width (RBC) [Entitic vol] 47.5 fL High 35.1-43.9 [facility] Erythrocyte distribution wid th ratioOrdered By: Aura Sky on 09-04-2024 Erythrocyte distribution width (RBC) [Ratio] 14.9 % High 11.6-14.6 [facility] Erythrocyte distribution wid th standard deviationOrdered By: Aura Sky on 09-04-2024 Erythrocyte distribution width (RBC) [Ratio] 47.5 fl High 35.1-43.9 [facility] Estimated glomerular filtrat ion rate (GFR) AmericanOrdered By: Aura Sky on 09-04-2024 Estimated GFR (MDRD) Amer 52 mL/min Low >60 [facility] Comment on above: GFR Calc Glomerular filtration rate ( GFR) estimationOrdered By: Aura Sky on 09-04-2024 Estimated GFR (MDRD) Non-Af Amer 43 mL/min Low >60 [facility] Comment on above: Non- GFR Calc GFR/1.73 sq M.predicted among non-blacks MDRD (S/P/Bld) [Vol rate/Area] 43 mL/min/{1.73_m2} Low >60 [facility] Comment on above: Non- GFR Calc Glucose measurementOrdered B y: Aura Sky on 09-04-2024 Glucose [Mass/Vol] 134 mg/dL High 74-106 [facility] Comment on above: Fasting Glucose resu lt greater than or equal to 126 mg/dL suggests DIABETES MELLITUS per A.D.A. criteria. Hematocrit Auto (Bld) [Volum e fraction]Ordered By: Aura Sky on 09-04-2024 Hematocrit (Bld) [Volume fraction] 29.4 % Low 40-54 [facility] Hemoglobin A1con 09-04-2024 HbA1c (Bld) [Mass fraction] 6.0 % High 3.8-5.6 [facility] Comment on above: Order Comment: 114.1 Result Comment: Norm al < 5.7 % Prediabetic 5.7 - 6.4 % Diabetic >or= 6.5 % Please note range changes. Performed By: #### L 501.9520, L500.4100, L503.0105, L501.9985 #### [facility] [address] [place], [place], [address] Hemoglobin A1c percentageOrd ered By: Aura Sky on 09-04-2024 HbA1c (Bld) [Mass fraction] 6.0 % High 3.8-5.6 [facility] Comment on above: Normal < 5.7 % Predi abetic 5.7 - 6.4 % Diabetic >or= 6.5 % Please note range changes. Hemoglobin measurementOrdere d By: Aura Sky on 09-04-2024 Hemoglobin (Bld) [Mass/Vol] 9.1 g/dL Low 13.0-16.5 [facility] High density lipoprotein (HD L) measurementOrdered By: Aura Sky on 09-04-2024 Cholesterol in HDL [Mass/Vol] 38 mg/dL Low >40 [facility] Comment on above: The drugs N-Acetylcy steine and Metamizole may falsely depress this assay. Reference Range HDL <40 mg/dL Low HDL Cholesterol HDL >or= 60 mg/dL High HDL Cholesterol Lipid Profileon 09-04-2024 Cholesterol [Mass/Vol] 103 mg/dL Normal 200 [facility] Comment on above: Order Comment: 114.1 Result Comment: <200 mg/dL Desirable 200-240 mg/dL Borderline >240 mg/dL High Risk Performed By: #### L [id number], L500.4100, L503.0105, L501.9985 #### [facility] [address] [place], [place], [id number] Cholesterol in HDL [Mass/Vol] 38 mg/dL Low [facility] Comment on above: Order Comment: 114.1 Result Comment: The drugs N-Acetylcysteine and Metamizole may falsely depress this assay. Reference Range HDL <40 mg/dL Low HDL Cholesterol HDL >or= 60 mg/dL High HDL Cholesterol Performed By: #### L [id number], L500.4100, L503.0105, L501.9985 #### [facility] [address] [place], [address] Cholesterol in LDL [Mass/Vol] 47 mg/dL Normal 0-130 [facility] Comment on above: Order Comment: 114.1 Performed By: #### L [id number], L500.4100, L503.0105, L501.9985 #### [facility] [address] [place], [address] Cholesterol in VLDL [Mass/Vol] 18 mg/dL Normal 5-40 [facility] Comment on above: Order Comment: 114.1 Performed By: #### L [id number], L500.4100, L503.0105, L501.9985 #### [facility] [address] [place], [address] Triglyceride [Mass/Vol] 88 mg/dL Normal [facility] Comment on above: Order Comment: 114.1 Result Comment: The drugs N-Acetylcysteine and Metamizole may falsely depress this assay. Serum Triglycerides Reference Interval Normal <150 mg/dL Borderline high 150 - 199 mg/dL High 200 - 499 mg/dL Very High > or = 500 mg/dL Performed By: #### L 501.9520, L500.4100, L503.0105, L501.9985 #### [facility] [address] [place], [address] Low density lipoprotein (LDL ) cholesterol measurementOrdered By: Aura Sky on 09-04-2024 Cholesterol in LDL [Mass/Vol] 47 mg/dL 0-130 [facility] MCV (mean corpuscular volume ) determinationOrdered By: Aura Sky on 09-04-2024 MCV (RBC) [Entitic vol] 87.5 fL 80-94 [facility] Mean corpuscular hemoglobin (MCH) determinationOrdered By: Aura Sky on 09-04-2024 MCH (RBC) [Entitic mass] 27.1 pg 27.0-32.0 [facility] Mean corpuscular hemoglobin concentration (MCHC) determinationOrdered By: Aura Sky on 09-04-2024 MCHC (RBC) [Mass/Vol] 31.0 g/dL Low 32-36 [facility] Mean platelet volume determi nationOrdered By: Aura Sky on 09-04-2024 Platelet mean volume (Bld) [Entitic vol] 11.3 fL 6.2-12.0 [facility] Platelet countOrdered By: Juanita Sky on 09-04-2024 Platelets (Bld) [#/Vol] 228 10*3/uL 150-450 [facility] Potassium measurementOrdered By: Aura Sky on 09-04-2024 Potassium [Moles/Vol] 3.9 mmol/L 3.5-5.1 [facility] RBC Auto (Bld) [#/Vol]Ordere d By: Aura Sky on 09-04-2024 RBC (Bld) [#/Vol] 3.36 10*6/uL Low 4.6-6.2 [facility] Serum anion gap measurementO rdered By: Aura Sky on 09-04-2024 Anion gap [Moles/Vol] 8 mmol/L 5-15 [facility] Serum or plasma calcium maria l urement (mass/volume)Ordered By: Aura Sky on 09-04-2024 Calcium [Mass/Vol] 8.2 mg/dL Low 8.5-10.1 [facility] Serum or plasma cholesterol measurement (mass/volume)Ordered By: Aura Sky on 09-04-2024 Cholesterol [Mass/Vol] 103 mg/dL <200 [facility] Comment on above: <200 mg/dL Desirable 200-240 mg/dL Borderline >240 mg/dL High Risk Serum or plasma creatinine m easurement (mass/volume)Ordered By: Aura Sky on 09-04-2024 Creatinine [Mass/Vol] 1.66 mg/dL High 0.70-1.30 [facility] Comment on above: The validity of the calculated GFR & GFRAA in patients over 70 years has not been determined. Clinical correlation is essential. Serum or plasma thyroid stim ulating hormone (TSH) measurement (units/volume)Ordered By: Aura Sky on 09-04-2024 TSH Qn 1.150 uIU/mL 0.358-3.740 [facility] Serum or plasma urea nitroge n measurement (mass/volume)Ordered By: Aura Sky on 09-04-2024 Urea nitrogen [Mass/Vol] 15 mg/dL 7-18 [facility] Sodium levelOrdered By: Aura Sky on 09-04-2024 Sodium [Moles/Vol] 138 mmol/L 136-145 [facility] TSH QnOrdered By: Aura lou on 09-04-2024 Thyroid Stimulating Hormone (TSH) 1.150 uIU/mL 0.358-3.740 [facility] Thyroid Stim Hormone (TSH)on 09-04-2024 TSH 1.150 uIU/mL Normal 0.358-3.740 [facility] Comment on above: Order Comment: 114.1 Performed By: #### L 501.9520, L500.4100, L503.0105, L501.9985 #### [facility] [address] [facility] [place], [address] Triglycerides measurementOrd ered By: Aura Sky on 09-04-2024 Triglyceride [Mass/Vol] 88 mg/dL <199 [facility] Comment on above: The drugs N-Acetylcy steine and Metamizole may falsely depress this assay.Serum Triglycerides Reference Interval Normal <150 mg/dL Borderline high 150 - 199 mg/dL High 200 - 499 mg/dL Very High > or = 500 mg/dL Very low density lipoprotein (VLDL) cholesterol measurementOrdered By: Aura Sky on 09-04-2024 Very low density lipoprotein (VLDL) cholesterol measurement 18 mg/dL 5-40 [facility] VLDL Cholesterol 18 mg/dL 5-40 [facility] Vitamin B12on 09-04-2024 Cobalamin (Vitamin B12) [Mass/Vol] 408 pg/mL Normal 211-911 [facility] Comment on above: Order Comment: 126-1 Performed By: #### L 501.9985, L500.4100, L100.0500, L501.9520, L500.2500, L503.0105 #### [facility] [address] [place], [address] Vitamin B12 measurementOrder ed By: Aura Sky on 09-04-2024 Cobalamin (Vitamin B12) [Mass/Vol] 408 pg/mL 211-911 [facility] White blood cell (WBC) count Ordered By: Aura Sky on 09-04-2024 WBC (Bld) [#/Vol] 5.5 10*3/uL 4.4-11.0 [facility] CBC-Complete Blood Cnt No Di ffon 08-03-2024 Erythrocyte distribution width (RBC) [Ratio] 15.9 % High 11.6-14.6 [facility] Comment on above: Order Comment: 114.1 Performed By: #### L 501.9520, L500.4100, L503.0105, L501.9985 #### [facility] [address] [place], [address] Hematocrit (Bld) [Volume fraction] 29.8 % Low 40-54 [facility] Comment on above: Order Comment: 114.1 Performed By: #### L [id number], L500.4100, L503.0105, L501.9985 #### [facility] [address] [place], [address] Hemoglobin (Bld) [Mass/Vol] 9.2 g/dL Low 13.0-16.5 [facility] Comment on above: Order Comment: 114.1 Performed By: #### L 501.9520, L500.4100, L503.0105, L501.9985 #### [facility] [address] [place], [address] MCH (RBC) [Entitic mass] 27.8 pg Normal 27.0-32.0 [facility] Comment on above: Order Comment: 114.1 Performed By: #### L 501.9520, L500.4100, L503.0105, L501.9985 #### [facility] [address] [place], [address] MCHC (RBC) [Mass/Vol] 30.9 g/dL Low 32-36 [facility] Comment on above: Order Comment: 114.1 Performed By: #### L 501.9520, L500.4100, L503.0105, L501.9985 #### [facility] [address] [place], [address] MCV (RBC) [Entitic vol] 90.0 fL Normal 80-94 [facility] Comment on above: Order Comment: 114.1 Performed By: #### L 501.9520, L500.4100, L503.0105, L501.9985 #### [facility] [address] [place], [address] Platelet mean volume (Bld) [Entitic vol] 10.7 fL Normal 6.2-12.0 [facility] Comment on above: Order Comment: 114.1 Performed By: #### L 501.9520, L500.4100, L503.0105, L501.9985 #### [facility] [address] [place], [address] Platelets (Bld) [#/Vol] 238 10*3/uL Normal 150-450 [facility] Comment on above: Order Comment: 114.1 Performed By: #### L [id number], L500.4100, L503.0105, L501.9985 #### [facility] [address] [place], [address] RBC (Bld) [#/Vol] 3.31 10*6/uL Low 4.6-6.2 [facility] Comment on above: Order Comment: 114.1 Performed By: #### L 501.9520, L500.4100, L503.0105, L501.9985 #### [facility] [address] [place], [address] RDW SD 53.1 fl High 35.1-43.9 [facility] Comment on above: Order Comment: 114.1 Performed By: #### L [id number], L500.4100, L503.0105, L501.9985 #### [facility] [address] [place], [address] WBC (Bld) [#/Vol] 8.4 10*3/uL Normal 4.4-11.0 [facility] Comment on above: Order Comment: 114.1 Performed By: #### L 501.9520, L500.4100, L503.0105, L501.9985 #### [facility] [address] [place], [place], [address] Erythrocyte distribution wid th (RBC) [Ratio]Ordered By: Aura Sky on 08-03-2024 Erythrocyte distribution width (RBC) [Entitic vol] 53.1 fL High 35.1-43.9 [facility] Erythrocyte distribution wid th ratioOrdered By: Aura Sky on 08-03-2024 Erythrocyte distribution width (RBC) [Ratio] 15.9 % High 11.6-14.6 [facility] Hematocrit Auto (Bld) [Volum e fraction]Ordered By: Aura Sky on 08-03-2024 Hematocrit (Bld) [Volume fraction] 29.8 % Low 40-54 [facility] Hemoglobin measurementOrdere d By: Aura Sky on 08-03-2024 Hemoglobin (Bld) [Mass/Vol] 9.2 g/dL Low 13.0-16.5 [facility] MCV (mean corpuscular volume ) determinationOrdered By: Aura Sky on 08-03-2024 MCV (RBC) [Entitic vol] 90.0 fL 80-94 [facility] Mean corpuscular hemoglobin (MCH) determinationOrdered By: Aura Sky on 08-03-2024 MCH (RBC) [Entitic mass] 27.8 pg 27.0-32.0 [facility] Mean corpuscular hemoglobin concentration (MCHC) determinationOrdered By: Aura Sky on 08-03-2024 MCHC (RBC) [Mass/Vol] 30.9 g/dL Low 32-36 [facility] Mean platelet volume determi nationOrdered By: Aura Sky on 08-03-2024 Platelet mean volume (Bld) [Entitic vol] 10.7 fL 6.2-12.0 [facility] Platelet countOrdered By: Juanita Sky on 08-03-2024 Platelets (Bld) [#/Vol] 238 10*3/uL 150-450 [facility] RBC Auto (Bld) [#/Vol]Ordere d By: Aura Sky on 08-03-2024 RBC (Bld) [#/Vol] 3.31 10*6/uL Low 4.6-6.2 [facility] White blood cell (WBC) count Ordered By: Aura Sky on 08-03-2024 WBC (Bld) [#/Vol] 8.4 10*3/uL 4.4-11.0 [facility] CBC-Complete Blood Cnt No Di ffon 07-03-2024 Erythrocyte distribution width (RBC) [Ratio] 15.8 % High 11.6-14.6 [facility] Comment on above: Performed By: #### L [id number], L500.4100, L503.0105, L501.9985 #### [facility] [address] [place], [address] Hematocrit (Bld) [Volume fraction] 27.4 % Low 40-54 [facility] Comment on above: Performed By: #### L [id number], L500.4100, L503.0105, L501.9985 #### [facility] [address] [place], [address] Hemoglobin (Bld) [Mass/Vol] 8.9 g/dL Low 13.0-16.5 [facility] Comment on above: Performed By: #### L 501.9520, L500.4100, L503.0105, L501.9985 #### [facility] [address] [place], [address] MCH (RBC) [Entitic mass] 28.9 pg Normal 27.0-32.0 [facility] Comment on above: Performed By: #### L [id number], L500.4100, L503.0105, L501.9985 #### [facility] [address] [place], [address] MCHC (RBC) [Mass/Vol] 32.5 g/dL Normal 32-36 [facility] Comment on above: Performed By: #### L 501.9520, L500.4100, L503.0105, L501.9985 #### [facility] [address] [place], [address] MCV (RBC) [Entitic vol] 89.0 fL Normal 80-94 [facility] Comment on above: Performed By: #### L [id number], L500.4100, L503.0105, L501.9985 #### [facility] [address] [place], [address] Platelet mean volume (Bld) [Entitic vol] 10.7 fL Normal 6.2-12.0 [facility] Comment on above: Performed By: #### L 501.9520, L500.4100, L503.0105, L501.9985 #### [facility] [address] [place], [address] Platelets (Bld) [#/Vol] 173 10*3/uL Normal 150-450 [facility] Comment on above: Performed By: #### L [id number], L500.4100, L503.0105, L501.9985 #### [facility] [address] [place], [address] RBC (Bld) [#/Vol] 3.08 10*6/uL Low 4.6-6.2 [facility] Comment on above: Performed By: #### L [id number], L500.4100, L503.0105, L501.9985 #### [facility] [address] [place], [address] RDW SD 51.2 fl High 35.1-43.9 [facility] Comment on above: Performed By: #### L [id number], L500.4100, L503.0105, L501.9985 #### [facility] [address] [place], [address] WBC (Bld) [#/Vol] 5.1 10*3/uL Normal 4.4-11.0 [facility] Comment on above: Performed By: #### L [id number], L500.4100, L503.0105, L501.9985 #### [facility] [address] [place], [address] Hemoglobin A1con 06-05-2024 HbA1c (Bld) [Mass fraction] 6.1 % High 3.8-5.6 [facility] Comment on above: Order Comment: 114.1 Result Comment: Norm al < 5.7 % Prediabetic 5.7 - 6.4 % Diabetic >or= 6.5 % Please note range changes. Performed By: #### L 501.9520, L500.4100, L503.0105, L501.9985 #### [facility] [address] [place], [address] Lipid Profileon 06-05-2024 Cholesterol [Mass/Vol] 107 mg/dL Normal 200 [facility] Comment on above: Order Comment: 114.1 Result Comment: <200 mg/dL Desirable 200-240 mg/dL Borderline >240 mg/dL High Risk Performed By: #### L 501.9520, L500.4100, L503.0105, L501.9985 #### [facility] [address] [place], [address] Cholesterol in HDL [Mass/Vol] 45 mg/dL Normal [facility] Comment on above: Order Comment: 114.1 Result Comment: The drugs N-Acetylcysteine and Metamizole may falsely depress this assay. Reference Range HDL <40 mg/dL Low HDL Cholesterol HDL >or= 60 mg/dL High HDL Cholesterol Performed By: #### L 501.9520, L500.4100, L503.0105, L501.9985 #### [facility] [address] [place], [address] Cholesterol in LDL [Mass/Vol] 48 mg/dL Normal 0-130 [facility] Comment on above: Order Comment: 114.1 Performed By: #### L [id number], L500.4100, L503.0105, L501.9985 #### [facility] [address] [place], [address] Cholesterol in VLDL [Mass/Vol] 14 mg/dL Normal 5-40 [facility] Comment on above: Order Comment: 114.1 Performed By: #### L [id number], L500.4100, L503.0105, L501.9985 #### [facility] [address] [place], [address] Triglyceride [Mass/Vol] 70 mg/dL Normal [facility] Comment on above: Order Comment: 114.1 Result Comment: The drugs N-Acetylcysteine and Metamizole may falsely depress this assay. Serum Triglycerides Reference Interval Normal <150 mg/dL Borderline high 150 - 199 mg/dL High 200 - 499 mg/dL Very High > or = 500 mg/dL Performed By: #### L 501.9520, L500.4100, L503.0105, L501.9985 #### [facility] [address] [place], [address] Thyroid Stim Hormone (TSH)on 06-05-2024 TSH 1.070 uIU/mL Normal 0.358-3.740 [facility] Comment on above: Order Comment: 114.1 Performed By: #### L [id number], L500.4100, L503.0105, L501.9985 #### [facility] [address] [place], [address] Vitamin B12on 06-05-2024 Cobalamin (Vitamin B12) [Mass/Vol] 500 pg/mL Normal 211-911 [facility] Comment on above: Order Comment: 114.1 Performed By: #### L [id number], L500.4100, L503.0105, L501.9985 #### [facility] [address] [place], [address] Basic Metabolic Profile (BMP )on 06-02-2024 BUN/CRE 10.5 RATIO Normal 10-20 [facility] Comment on above: Order Comment: 126.1 Performed By: #### L 500.2500, L100.0500 #### [facility] [address] [place], [address] CA,Total 8.0 mg/dL Low 8.5-10.1 [facility] Comment on above: Order Comment: 126.1 Performed By: #### L 500.2500, L100.0500 #### [facility] [address] [place], [address] Chloride [Moles/Vol] 94 mmol/L Low 98-107 [facility] Comment on above: Order Comment: 126.1 Performed By: #### L 500.2500, L100.0500 #### [facility] [address] [place], [address] CO2 [Moles/Vol] 30.0 mmol/L Normal 21.0-32.0 [facility] Comment on above: Order Comment: 126.1 Performed By: #### L 500.2500, L100.0500 #### [facility] [address] [place], [address] Creatinine [Mass/Vol] 1.52 mg/dL High 0.70-1.30 [facility] Comment on above: Order Comment: 126.1 Result Comment: The validity of the calculated GFR GFRAA in patients over 70 years has not been determined. Clinical correlation is essential. Performed By: #### L 500.2500, L100.0500 #### [facility] [address] [place], [address] EST GFR - AA 57 mL/min Low >60 [facility] Comment on above: Order Comment: 126.1 Result Comment: Afri can [place] GFR Calc Performed By: #### L 500.2500, L100.0500 #### [facility] [address] [place], [address] GAP 6 Normal 5-15 [facility] Comment on above: Order Comment: 126.1 Performed By: #### L 500.2500, L100.0500 #### [facility] [address] [place], [address] GFR/1.73 sq M.predicted among non-blacks MDRD (S/P/Bld) [Vol rate/Area] 47 mL/min/{1.73_m2} Low >60 [facility] Comment on above: Order Comment: 126.1 Result Comment: Non- GFR Calc Performed By: #### L 500.2500, L100.0500 #### [facility] [address] [place], [address] Glucose [Mass/Vol] 114 mg/dL High 74-106 [facility] Comment on above: Order Comment: 126.1 Result Comment: Fast ing Glucose result from 100 to 125 mg/dL suggests IMPAIRED HOMEOSTASIS per A.D.A. criteria. Performed By: #### L 500.2500, L100.0500 #### [facility] [address] [place], [address] Potassium [Moles/Vol] 4.0 mmol/L Normal 3.5-5.1 [facility] Comment on above: Order Comment: 126.1 Performed By: #### L 500.2500, L100.0500 #### [facility] [address] [place], [address] Sodium [Moles/Vol] 129 mmol/L Low 136-145 [facility] Comment on above: Order Comment: 126.1 Performed By: #### L 500.2500, L100.0500 #### [facility] [address] [place], [address] Urea nitrogen [Mass/Vol] 16 mg/dL Normal 7-18 [facility] Comment on above: Order Comment: 126.1 Performed By: #### L 500.2500, L100.0500 #### [facility] [address] [place], [address] CBC-Complete Blood Cnt No Di ffon 06-02-2024 Erythrocyte distribution width (RBC) [Ratio] 14.2 % Normal 11.6-14.6 [facility] Comment on above: Order Comment: 126.1 Performed By: #### L 500.2500, L100.0500 #### [facility] [address] [place], [address] Hematocrit (Bld) [Volume fraction] 30.2 % Low 40-54 [facility] Comment on above: Order Comment: 126.1 Performed By: #### L 500.2500, L100.0500 #### [facility] [address] [place], [address] Hemoglobin (Bld) [Mass/Vol] 10.0 g/dL Low 13.0-16.5 [facility] Comment on above: Order Comment: 126.1 Performed By: #### L 500.2500, L100.0500 #### [facility] [address] [place], [address] MCH (RBC) [Entitic mass] 28.2 pg Normal 27.0-32.0 [facility] Comment on above: Order Comment: 126.1 Performed By: #### L 500.2500, L100.0500 #### [facility] [address] [place], [address] MCHC (RBC) [Mass/Vol] 33.1 g/dL Normal 32-36 [facility] Comment on above: Order Comment: 126.1 Performed By: #### L 500.2500, L100.0500 #### [facility] [address] [place], [address] MCV (RBC) [Entitic vol] 85.3 fL Normal 80-94 [facility] Comment on above: Order Comment: 126.1 Performed By: #### L 500.2500, L100.0500 #### [facility] [address] [place], [address] Platelet mean volume (Bld) [Entitic vol] 10.5 fL Normal 6.2-12.0 [facility] Comment on above: Order Comment: 126.1 Performed By: #### L 500.2500, L100.0500 #### [facility] [address] [place], [address] Platelets (Bld) [#/Vol] 193 10*3/uL Normal 150-450 [facility] Comment on above: Order Comment: 126.1 Performed By: #### L 500.2500, L100.0500 #### [facility] [address] [place], [address] RBC (Bld) [#/Vol] 3.54 10*6/uL Low 4.6-6.2 [facility] Comment on above: Order Comment: 126.1 Performed By: #### L 500.2500, L100.0500 #### [facility] [address] [place], [address] RDW SD 44.0 fl High 35.1-43.9 [facility] Comment on above: Order Comment: 126.1 Performed By: #### L 500.2500, L100.0500 #### [facility] [address] [place], [address] WBC (Bld) [#/Vol] 5.5 10*3/uL Normal 4.4-11.0 [facility] Comment on above: Order Comment: 126.1 Performed By: #### L 500.2500, L100.0500 #### [facility] [address] [place], [place], [address] Basophil percentageOrdered B y: Aura Sky on 11-02-2023 Chloride [Moles/Vol] 102 mmol/L 98-107 [facility] Glucose [Mass/Vol] 128 mg/dL 74-106 [facility] Comment on above: Fasting Glucose resu lt greater than or equal to 126 mg/dL suggests DIABETES MELLITUS per A.D.A. criteria. Hemoglobin (Bld) [Mass/Vol] 9.3 g/dL 13.0-16.5 [facility] Potassium [Moles/Vol] 3.8 mmol/L 3.5-5.1 [facility] Sodium [Moles/Vol] 137 mmol/L 136-145 [facility] WBC (Bld) [#/Vol] 6.9 10*3/uL 4.4-11.0 [facility] Determination of erythrocyte mean corpuscular volume (MCV)Ordered By: Aura Sky on 11-02-2023 MCV (RBC) [Entitic vol] 93.2 fL 80-94 [facility] Erythrocyte distribution wid th ratioOrdered By: Aura Sky on 11-02-2023 Erythrocyte distribution width (RBC) [Ratio] 14.2 % 11.6-14.6 [facility] Erythrocyte distribution wid th standard deviationOrdered By: Aura Sky on 11-02-2023 Erythrocyte distribution width (RBC) [Entitic vol] 48.0 fL 35.1-43.9 [facility] Hematocrit Auto (Bld) [Volum e fraction]Ordered By: Aura Sky on 11-02-2023 Hematocrit (Bld) [Volume fraction] 30.3 % 40-54 [facility] - Chemistry and C hemistry - challengeOrdered By: Aura Sky on 11-02-2023 CO2 [Moles/Vol] 29.0 mmol/L 21.0-32.0 [facility] Cobalamin (Vitamin B12) [Mass/Vol] 463 pg/mL 211-911 [facility] Urea nitrogen/Creatinine [Mass ratio] 13.0 mg/mg 10-20 [facility] - Hematology and Cell countsOrdered By: Aura Sky on 11-02-2023 MCH (RBC) [Entitic mass] 28.6 pg 27.0-32.0 [facility] MCHC (RBC) [Mass/Vol] 30.7 g/dL 32-36 [facility] Platelet mean volume (Bld) [Entitic vol] 11.0 fL 6.2-12.0 [facility] Platelets (Bld) [#/Vol] 236 10*3/uL 150-450 [facility] No Panel InformationOrdered By: Aura Sky on 11-02-2023 Estimated GFR (MDRD) Amer 46 mL/min >60 [facility] Comment on above: GFR Calc Estimated GFR (MDRD) Non-Af Amer 38 mL/min >60 [facility] Comment on above: Non- GFR Calc RBC Auto (Bld) [#/Vol]Ordere d By: Aura Sky on 11-02-2023 RBC (Bld) [#/Vol] 3.25 10*6/uL 4.6-6.2 [facility] Serum or plasma calcium maria l urement (mass/volume)Ordered By: Aura Sky on 11-02-2023 Calcium [Mass/Vol] 8.4 mg/dL 8.5-10.1 [facility] Serum or plasma creatinine m easurement (mass/volume)Ordered By: Aura Sky on 11-02-2023 Creatinine [Mass/Vol] 1.85 mg/dL 0.70-1.30 [facility] Comment on above: The validity of the calculated GFR & GFRAA in patients over 70 years has not been determined. Clinical correlation is essential. Serum or plasma thyroid stim ulating hormone (TSH) measurement (units/volume)Ordered By: Aura Sky on 11-02-2023 TSH Qn 1.19 uIU/mL 0.358-3.74 [facility] Serum or plasma urea nitroge n measurement (mass/volume)Ordered By: Aura Sky on 11-02-2023 Urea nitrogen [Mass/Vol] 24 mg/dL 7-18 [facility] Thin prep Papanicolaou smear with manual screeningOrdered By: Aura Sky on 11-02-2023 Thin prep Papanicolaou smear with manual screening 6 5-15 [facility] Whole blood hemoglobin A1c/t otal hemoglobin ratio (mass fraction)Ordered By: Aura Sky on 11-02-2023 HbA1c (Bld) [Mass fraction] 5.7 % 3.8-5.6 [facility] Comment on above: Normal < 5.7 % Predi abetic 5.7 - 6.4 % Diabetic >or= 6.5 % Please note range changes. Basophil percentageOrdered B y: Aura Sky on 10-27-2023 Hemoglobin (Bld) [Mass/Vol] 9.5 g/dL 13.0-16.5 [facility] WBC (Bld) [#/Vol] 6.3 10*3/uL 4.4-11.0 [facility] Determination of erythrocyte mean corpuscular volume (MCV)Ordered By: Aura Sky on 10-27-2023 MCV (RBC) [Entitic vol] 92.4 fL 80-94 [facility] Erythrocyte distribution wid th ratioOrdered By: Aura Sky on 10-27-2023 Erythrocyte distribution width (RBC) [Ratio] 14.0 % 11.6-14.6 [facility] Erythrocyte distribution wid th standard deviationOrdered By: Aura Sky on 10-27-2023 Erythrocyte distribution width (RBC) [Entitic vol] 47.2 fL 35.1-43.9 [facility] Hematocrit Auto (Bld) [Volum e fraction]Ordered By: Aura Sky on 10-27-2023 Hematocrit (Bld) [Volume fraction] 30.4 % 40-54 [facility] - Hematology and Cell countsOrdered By: Aura Sky on 10-27-2023 MCH (RBC) [Entitic mass] 28.9 pg 27.0-32.0 [facility] MCHC (RBC) [Mass/Vol] 31.3 g/dL 32-36 [facility] Platelet mean volume (Bld) [Entitic vol] 10.7 fL 6.2-12.0 [facility] Platelets (Bld) [#/Vol] 280 10*3/uL 150-450 [facility] RBC Auto (Bld) [#/Vol]Ordere d By: Aura Sky on 10-27-2023 RBC (Bld) [#/Vol] 3.29 10*6/uL 4.6-6.2 [facility] Basophil percentageOrdered B y: Aura Sky on 09-29-2023 Hemoglobin (Bld) [Mass/Vol] 8.9 g/dL 13.0-16.5 [facility] WBC (Bld) [#/Vol] 6.0 10*3/uL 4.4-11.0 [facility] Determination of erythrocyte mean corpuscular volume (MCV)Ordered By: Aura Sky on 09-29-2023 MCV (RBC) [Entitic vol] 92.1 fL 80-94 [facility] Erythrocyte distribution wid th ratioOrdered By: Aura Sky on 09-29-2023 Erythrocyte distribution width (RBC) [Ratio] 14.0 % 11.6-14.6 [facility] Erythrocyte distribution wid th standard deviationOrdered By: Aura Sky on 09-29-2023 Erythrocyte distribution width (RBC) [Entitic vol] 47.3 fL 35.1-43.9 [facility] Hematocrit Auto (Bld) [Volum e fraction]Ordered By: Aura Sky on 09-29-2023 Hematocrit (Bld) [Volume fraction] 27.8 % 40-54 [facility] - Hematology and Cell countsOrdered By: Aura Sky on 09-29-2023 MCH (RBC) [Entitic mass] 29.5 pg 27.0-32.0 [facility] MCHC (RBC) [Mass/Vol] 32.0 g/dL 32-36 [facility] Platelet mean volume (Bld) [Entitic vol] 10.6 fL 6.2-12.0 [facility] Platelets (Bld) [#/Vol] 251 10*3/uL 150-450 [facility] RBC Auto (Bld) [#/Vol]Ordere d By: Aura Sky on 09-29-2023 RBC (Bld) [#/Vol] 3.02 10*6/uL 4.6-6.2 [facility] Basophil percentageOrdered B y: Aura Sky on 09-03-2023 Chloride [Moles/Vol] 105 mmol/L 98-107 [facility] Glucose [Mass/Vol] 102 mg/dL 74-106 [facility] Comment on above: Fasting Glucose resu lt from 100 to 125 mg/dL suggests IMPAIRED HOMEOSTASIS per A.D.A. criteria. Hemoglobin (Bld) [Mass/Vol] 9.2 g/dL 13.0-16.5 [facility] Potassium [Moles/Vol] 4.4 mmol/L 3.5-5.1 [facility] Sodium [Moles/Vol] 136 mmol/L 136-145 [facility] WBC (Bld) [#/Vol] 6.3 10*3/uL 4.4-11.0 [facility] Determination of erythrocyte mean corpuscular volume (MCV)Ordered By: Aura Sky on 09-03-2023 MCV (RBC) [Entitic vol] 90.7 fL 80-94 [facility] Erythrocyte distribution wid th ratioOrdered By: Aura Sky on 09-03-2023 Erythrocyte distribution width (RBC) [Ratio] 13.3 % 11.6-14.6 [facility] Erythrocyte distribution wid th standard deviationOrdered By: Aura Sky on 09-03-2023 Erythrocyte distribution width (RBC) [Entitic vol] 44.0 fL 35.1-43.9 [facility] Hematocrit Auto (Bld) [Volum e fraction]Ordered By: Aura Sky on 09-03-2023 Hematocrit (Bld) [Volume fraction] 29.2 % 40-54 [facility] - Chemistry and C hemistry - challengeOrdered By: Aura Sky on 09-03-2023 CO2 [Moles/Vol] 29.0 mmol/L 21.0-32.0 [facility] Urea nitrogen/Creatinine [Mass ratio] 14.0 mg/mg 10-20 [facility] - Hematology and Cell countsOrdered By: Aura Sky on 09-03-2023 MCH (RBC) [Entitic mass] 28.6 pg 27.0-32.0 [facility] MCHC (RBC) [Mass/Vol] 31.5 g/dL 32-36 [facility] Platelets (Bld) [#/Vol] 244 10*3/uL 150-450 [facility] No Panel InformationOrdered By: Aura Sky on 09-03-2023 Estimated GFR (MDRD) Amer 50 mL/min >60 [facility] Comment on above: GFR Calc Estimated GFR (MDRD) Non-Af Amer 41 mL/min >60 [facility] Comment on above: Non- GFR Calc Platelet mean volume Joseph-Ec ker (Bld) [Entitic vol]Ordered By: Aura Sky on 09-03-2023 Platelet mean volume (Bld) [Entitic vol] 10.7 fL 6.2-12.0 [facility] RBC Auto (Bld) [#/Vol]Ordere d By: Aura Sky on 09-03-2023 RBC (Bld) [#/Vol] 3.22 10*6/uL 4.6-6.2 [facility] Serum or plasma calcium maria l urement (mass/volume)Ordered By: Aura Sky on 09-03-2023 Calcium [Mass/Vol] 8.4 mg/dL 8.5-10.1 [facility] Serum or plasma creatinine m easurement (mass/volume)Ordered By: Aura Sky on 09-03-2023 Creatinine [Mass/Vol] 1.72 mg/dL 0.70-1.30 [facility] Comment on above: The validity of the calculated GFR & GFRAA in patients over 70 years has not been determined. Clinical correlation is essential. Serum or plasma urea nitroge n measurement (mass/volume)Ordered By: Aura Sky on 09-03-2023 Urea nitrogen [Mass/Vol] 24 mg/dL 7-18 [facility] Thin prep Papanicolaou smear with manual screeningOrdered By: Aura Sky on 09-03-2023 Thin prep Papanicolaou smear with manual screening 2 5-15 [facility] Basophil percentageOrdered B y: Aura Sky on 06-03-2023 Chloride [Moles/Vol] 100 mmol/L 98-107 [facility] Cholesterol [Mass/Vol] 132 mg/dL <200 [facility] Comment on above: <200 mg/dL Desirable 200-240 mg/dL Borderline >240 mg/dL High Risk Glucose [Mass/Vol] 85 mg/dL 74-106 [facility] Potassium [Moles/Vol] 4.3 mmol/L 3.5-5.1 [facility] Sodium [Moles/Vol] 136 mmol/L 136-145 [facility] Triglyceride [Mass/Vol] 81 mg/dL <199 [facility] Comment on above: The drugs N-Acetylcy steine and Metamizole may falsely depress this assay.Serum Triglycerides Reference Interval Normal <150 mg/dL Borderline high 150 - 199 mg/dL High 200 - 499 mg/dL Very High > or = 500 mg/dL WBC (Bld) [#/Vol] 6.8 10*3/uL 4.4-11.0 [facility] Blood erythrocytes count (nu mber/volume)Ordered By: Aura Sky on 06-03-2023 RBC (Bld) [#/Vol] 4.00 10*6/uL 4.6-6.2 [facility] Blood hemoglobin measurement (mass/volume)Ordered By: Aura Sky on 06-03-2023 Hemoglobin (Bld) [Mass/Vol] 11.6 g/dL 13.0-16.5 [facility] Blood platelet mean volumeOr dered By: Aura Sky on 06-03-2023 Platelet mean volume (Bld) [Entitic vol] 10.9 fL 6.2-12.0 [facility] Determination of erythrocyte mean corpuscular volume (MCV)Ordered By: Aura Sky on 06-03-2023 MCV (RBC) [Entitic vol] 90.0 fL 80-94 [facility] Hematocrit Auto (Bld) [Volum e fraction]Ordered By: Aura Sky on 06-03-2023 Hematocrit (Bld) [Volume fraction] 36.0 % 40-54 [facility] - Chemistry and C hemistry - challengeOrdered By: Aura Sky on 06-03-2023 CO2 [Moles/Vol] 33.0 mmol/L 21.0-32.0 [facility] Cobalamin (Vitamin B12) [Mass/Vol] 1192 pg/mL 211-911 [facility] Urea nitrogen/Creatinine [Mass ratio] 11.8 mg/mg 10-20 [facility] - Hematology and Cell countsOrdered By: Aura Sky on 06-03-2023 Erythrocyte distribution width (RBC) [Entitic vol] 45.4 fL 35.1-43.9 [facility] Erythrocyte distribution width (RBC) [Ratio] 13.9 % 11.6-14.6 [facility] MCH (RBC) [Entitic mass] 29.0 pg 27.0-32.0 [facility] MCHC Auto (RBC) [Mass/Vol]Or dered By: Aura Sky on 06-03-2023 MCHC (RBC) [Mass/Vol] 32.2 g/dL 32-36 [facility] No Panel InformationOrdered By: Aura Sky on 06-03-2023 Estimated GFR (MDRD) Amer 57 mL/min >60 [facility] Comment on above: GFR Calc Estimated GFR (MDRD) Non-Af Amer 47 mL/min >60 [facility] Comment on above: Non- GFR Calc Thyroid Stimulating Hormone (TSH) 2.12 uIU/mL 0.358-3.74 [facility] Platelets bldOrdered By: Doe Sky on 06-03-2023 Platelets (Bld) [#/Vol] 239 10*3/uL 150-450 [facility] Serum or plasma calcium maria l urement (mass/volume)Ordered By: Aura Sky on 06-03-2023 Calcium [Mass/Vol] 8.1 mg/dL 8.5-10.1 [facility] Serum or plasma cholesterol in HDL measurement (mass/volume)Ordered By: Aura Sky on 06-03-2023 Cholesterol in HDL [Mass/Vol] 51 mg/dL >40 [facility] Comment on above: The drugs N-Acetylcy steine and Metamizole may falsely depress this assay. Reference Range HDL <40 mg/dL Low HDL Cholesterol HDL >or= 60 mg/dL High HDL Cholesterol Serum or plasma cholesterol in VLDL measurement (mass/volume)Ordered By: Aura Sky on 06-03-2023 Cholesterol in VLDL [Mass/Vol] 16 mg/dL 5-40 [facility] Serum or plasma creatinine m easurement (mass/volume)Ordered By: Aura Sky on 06-03-2023 Creatinine [Mass/Vol] 1.53 mg/dL 0.70-1.30 [facility] Comment on above: The validity of the calculated GFR & GFRAA in patients over 70 years has not been determined. Clinical correlation is essential. Serum or plasma low density lipoprotein (LDL) cholesterol measurement (mass/volume)Ordered By: Aura Sky on 06-03-2023 Cholesterol in LDL [Mass/Vol] 65 mg/dL 0-130 [facility] Serum or plasma urea nitroge n measurement (mass/volume)Ordered By: Aura Sky on 06-03-2023 Urea nitrogen [Mass/Vol] 18 mg/dL 7-18 [facility] Thin prep Papanicolaou smear with manual screeningOrdered By: Aura Sky on 06-03-2023 Thin prep Papanicolaou smear with manual screening 3 5-15 [facility] Whole blood hemoglobin A1c/t otal hemoglobin ratio (mass fraction)Ordered By: Aura Sky on 06-03-2023 HbA1c (Bld) [Mass fraction] 5.9 % 3.8-5.6 [facility] Comment on above: Normal < 5.7 % Predi abetic 5.7 - 6.4 % Diabetic >or= 6.5 % Please note range changes. Basophil percentageOrdered B y: Aura Sky on 03-03-2023 Chloride [Moles/Vol] 103 mmol/L 98-107 [facility] Glucose [Mass/Vol] 81 mg/dL 74-106 [facility] Potassium [Moles/Vol] 4.2 mmol/L 3.5-5.1 [facility] Sodium [Moles/Vol] 136 mmol/L 136-145 [facility] WBC (Bld) [#/Vol] 5.7 10*3/uL 4.4-11.0 [facility] Blood erythrocytes count (nu mber/volume)Ordered By: Aura Sky on 03-03-2023 RBC (Bld) [#/Vol] 3.63 10*6/uL 4.6-6.2 [facility] Blood hemoglobin measurement (mass/volume)Ordered By: Aura Sky on 03-03-2023 Hemoglobin (Bld) [Mass/Vol] 10.4 g/dL 13.0-16.5 [facility] Blood platelet mean volumeOr dered By: Aura Sky on 03-03-2023 Platelet mean volume (Bld) [Entitic vol] 10.7 fL 6.2-12.0 [facility] Determination of erythrocyte mean corpuscular volume (MCV)Ordered By: Aura Sky on 07-26-2023 MCV (RBC) [Entitic vol] 90.4 fL 80-94 [facility] Hematocrit Auto (Bld) [Volum e fraction]Ordered By: Aura Sky on 03-03-2023 Hematocrit (Bld) [Volume fraction] 32.8 % 40-54 [facility] Laboratory - Chemistry and C hemistry - challengeOrdered By: Aura Sky on 03-03-2023 CO2 [Moles/Vol] 31.0 mmol/L 21.0-32.0 [facility] Urea nitrogen/Creatinine [Mass ratio] 9.4 mg/mg 10-20 [facility] Laboratory - Hematology and Cell countsOrdered By: Aura Sky on 03-03-2023 Erythrocyte distribution width (RBC) [Entitic vol] 43.0 fL 35.1-43.9 [facility] Erythrocyte distribution width (RBC) [Ratio] 13.0 % 11.6-14.6 [facility] MCH (RBC) [Entitic mass] 28.7 pg 27.0-32.0 [facility] MCHC Auto (RBC) [Mass/Vol]Or dered By: Aura Sky on 03-03-2023 MCHC (RBC) [Mass/Vol] 31.7 g/dL 32-36 [facility] No Panel InformationOrdered By: Aura Sky on 03-03-2023 Estimated GFR (MDRD) Amer 54 mL/min >60 [facility] Comment on above: GFR Calc Estimated GFR (MDRD) Non-Af Amer 45 mL/min >60 [facility] Comment on above: Non- GFR Calc Platelets bldOrdered By: Doe Sky on 03-03-2023 Platelets (Bld) [#/Vol] 233 10*3/uL 150-450 [facility] Serum or plasma calcium maria l urement (mass/volume)Ordered By: Aura Sky on 03-03-2023 Calcium [Mass/Vol] 8.4 mg/dL 8.5-10.1 [facility] Serum or plasma creatinine m easurement (mass/volume)Ordered By: Aura Sky on 03-03-2023 Creatinine [Mass/Vol] 1.60 mg/dL 0.70-1.30 [facility] Comment on above: The validity of the calculated GFR & GFRAA in patients over 70 years has not been determined. Clinical correlation is essential. Serum or plasma urea nitroge n measurement (mass/volume)Ordered By: Aura Sky on 03-03-2023 Urea nitrogen [Mass/Vol] 15 mg/dL 7-18 [facility] Thin prep Papanicolaou smear with manual screeningOrdered By: Aura Sky on 03-03-2023 Thin prep Papanicolaou smear with manual screening 2 5-15 [facility] Basophil percentageOrdered B y: Aura Sky on 01-01-2023 Chloride [Moles/Vol] 101 mmol/L 98-107 [facility] Glucose [Mass/Vol] 95 mg/dL 74-106 [facility] Potassium [Moles/Vol] 4.4 mmol/L 3.5-5.1 [facility] Sodium [Moles/Vol] 134 mmol/L 136-145 [facility] WBC (Bld) [#/Vol] 6.2 10*3/uL 4.4-11.0 [facility] Blood erythrocytes count (nu mber/volume)Ordered By: Aura Sky on 01-01-2023 RBC (Bld) [#/Vol] 3.74 10*6/uL 4.6-6.2 [facility] Blood hemoglobin measurement (mass/volume)Ordered By: Aura Sky on 01-01-2023 Hemoglobin (Bld) [Mass/Vol] 11.0 g/dL 13.0-16.5 [facility] Blood platelet mean volumeOr dered By: Aura Sky on 01-01-2023 Platelet mean volume (Bld) [Entitic vol] 10.3 fL 6.2-12.0 [facility] Determination of erythrocyte mean corpuscular volume (MCV)Ordered By: Aura Sky on 01-01-2023 MCV (RBC) [Entitic vol] 90.4 fL 80-94 [facility] Hematocrit Auto (Bld) [Volum e fraction]Ordered By: Aura Sky on 01-01-2023 Hematocrit (Bld) [Volume fraction] 33.8 % 40-54 [facility] Laboratory - Chemistry and C hemistry - challengeOrdered By: Aura Sky on 01-01-2023 CO2 [Moles/Vol] 31.0 mmol/L 21.0-32.0 [facility] Urea nitrogen/Creatinine [Mass ratio] 11.7 mg/mg 10-20 [facility] Laboratory - Hematology and Cell countsOrdered By: Aura Sky on 01-01-2023 Erythrocyte distribution width (RBC) [Entitic vol] 44.6 fL 35.1-43.9 [facility] Erythrocyte distribution width (RBC) [Ratio] 13.6 % 11.6-14.6 [facility] MCH (RBC) [Entitic mass] 29.4 pg 27.0-32.0 [facility] MCHC Auto (RBC) [Mass/Vol]Or dered By: Aura Sky on 01-01-2023 MCHC (RBC) [Mass/Vol] 32.5 g/dL 32-36 [facility] No Panel InformationOrdered By: Aura Sky on 01-01-2023 Estimated GFR (MDRD) Amer 53 mL/min >60 [facility] Comment on above: GFR Calc Estimated GFR (MDRD) Non-Af Amer 44 mL/min >60 [facility] Comment on above: Non- GFR Calc Platelets bldOrdered By: Doe Sky on 01-01-2023 Platelets (Bld) [#/Vol] 225 10*3/uL 150-450 [facility] Serum or plasma calcium maria l urement (mass/volume)Ordered By: Aura Sky on 01-01-2023 Calcium [Mass/Vol] 8.3 mg/dL 8.5-10.1 [facility] Serum or plasma creatinine m easurement (mass/volume)Ordered By: Aura Sky on 01-01-2023 Creatinine [Mass/Vol] 1.63 mg/dL 0.70-1.30 [facility] Comment on above: The validity of the calculated GFR & GFRAA in patients over 70 years has not been determined. Clinical correlation is essential. Serum or plasma urea nitroge n measurement (mass/volume)Ordered By: Aura Sky on 01-01-2023 Urea nitrogen [Mass/Vol] 19 mg/dL 7-18 [facility] Thin prep Papanicolaou smear with manual screeningOrdered By: Aura Sky on 01-01-2023 Thin prep Papanicolaou smear with manual screening 2 5-15 [facility] Basophil percentageOrdered B y: Aura Sky on 12-02-2022 Chloride [Moles/Vol] 99 mmol/L 98-107 [facility] Cholesterol [Mass/Vol] 132 mg/dL <200 [facility] Comment on above: <200 mg/dL Desirable 200-240 mg/dL Borderline >240 mg/dL High Risk Glucose [Mass/Vol] 103 mg/dL 74-106 [facility] Comment on above: Fasting Glucose resu lt from 100 to 125 mg/dL suggests IMPAIRED HOMEOSTASIS per A.D.A. criteria. Potassium [Moles/Vol] 4.2 mmol/L 3.5-5.1 [facility] Sodium [Moles/Vol] 133 mmol/L 136-145 [facility] Triglyceride [Mass/Vol] 81 mg/dL <199 [facility] Comment on above: The drugs N-Acetylcy steine and Metamizole may falsely depress this assay.Serum Triglycerides Reference Interval Normal <150 mg/dL Borderline high 150 - 199 mg/dL High 200 - 499 mg/dL Very High > or = 500 mg/dL WBC (Bld) [#/Vol] 6.2 10*3/uL 4.4-11.0 [facility] Blood erythrocytes count (nu mber/volume)Ordered By: Aura Sky on 12-02-2022 RBC (Bld) [#/Vol] 3.89 10*6/uL 4.6-6.2 [facility] Blood hemoglobin measurement (mass/volume)Ordered By: Aura Sky on 12-02-2022 Hemoglobin (Bld) [Mass/Vol] 11.5 g/dL 13.0-16.5 [facility] Blood platelet mean volumeOr dered By: Aura Sky on 12-02-2022 Platelet mean volume (Bld) [Entitic vol] 10.2 fL 6.2-12.0 [facility] Determination of erythrocyte mean corpuscular volume (MCV)Ordered By: Aura Sky on 12-02-2022 MCV (RBC) [Entitic vol] 90.5 fL 80-94 [facility] Hematocrit Auto (Bld) [Volum e fraction]Ordered By: Aura Sky on 12-02-2022 Hematocrit (Bld) [Volume fraction] 35.2 % 40-54 [facility] Laboratory - Chemistry and C hemistry - challengeOrdered By: Aura Sky on 12-02-2022 CO2 [Moles/Vol] 30.0 mmol/L 21.0-32.0 [facility] Cobalamin (Vitamin B12) [Mass/Vol] 1096 pg/mL 211-911 [facility] Urea nitrogen/Creatinine [Mass ratio] 13.0 mg/mg 10-20 [facility] Laboratory - Hematology and Cell countsOrdered By: Aura Sky on 12-02-2022 Erythrocyte distribution width (RBC) [Entitic vol] 43.3 fL 35.1-43.9 [facility] Erythrocyte distribution width (RBC) [Ratio] 13.2 % 11.6-14.6 [facility] MCH (RBC) [Entitic mass] 29.6 pg 27.0-32.0 [facility] MCHC Auto (RBC) [Mass/Vol]Or dered By: Aura Sky on 12-02-2022 MCHC (RBC) [Mass/Vol] 32.7 g/dL 32-36 [facility] No Panel InformationOrdered By: Aura Sky on 12-02-2022 Estimated GFR (MDRD) Amer 57 mL/min >60 [facility] Comment on above: GFR Calc Estimated GFR (MDRD) Non-Af Amer 47 mL/min >60 [facility] Comment on above: Non- GFR Calc Thyroid Stimulating Hormone (TSH) 1.12 uIU/mL 0.358-3.74 [facility] Platelets bldOrdered By: Doe Sky on 12-02-2022 Platelets (Bld) [#/Vol] 278 10*3/uL 150-450 [facility] Serum or plasma calcium maria l urement (mass/volume)Ordered By: Aura Sky on 12-02-2022 Calcium [Mass/Vol] 8.3 mg/dL 8.5-10.1 [facility] Serum or plasma cholesterol in HDL measurement (mass/volume)Ordered By: Aura Sky on 12-02-2022 Cholesterol in HDL [Mass/Vol] 46 mg/dL >40 [facility] Comment on above: The drugs N-Acetylcy steine and Metamizole may falsely depress this assay. Reference Range HDL <40 mg/dL Low HDL Cholesterol HDL >or= 60 mg/dL High HDL Cholesterol Serum or plasma cholesterol in VLDL measurement (mass/volume)Ordered By: Aura Sky on 12-02-2022 Cholesterol in VLDL [Mass/Vol] 16 mg/dL 5-40 [facility] Serum or plasma creatinine m easurement (mass/volume)Ordered By: Aura Sky on 12-02-2022 Creatinine [Mass/Vol] 1.54 mg/dL 0.70-1.30 [facility] Comment on above: The validity of the calculated GFR & GFRAA in patients over 70 years has not been determined. Clinical correlation is essential. Serum or plasma low density lipoprotein (LDL) cholesterol measurement (mass/volume)Ordered By: Aura Sky on 12-02-2022 Cholesterol in LDL [Mass/Vol] 70 mg/dL 0-130 [facility] Serum or plasma urea nitroge n measurement (mass/volume)Ordered By: Aura Sky on 12-02-2022 Urea nitrogen [Mass/Vol] 20 mg/dL 7-18 [facility] Thin prep Papanicolaou smear with manual screeningOrdered By: Aura Sky on 12-02-2022 Thin prep Papanicolaou smear with manual screening 4 5-15 [facility] Whole blood hemoglobin A1c/t otal hemoglobin ratio (mass fraction)Ordered By: Aura Sky on 12-02-2022 HbA1c (Bld) [Mass fraction] 5.9 % 3.8-5.6 [facility] Comment on above: Normal < 5.7 % Predi abetic 5.7 - 6.4 % Diabetic >or= 6.5 % Please note range changes. Basophil percentageOrdered B y: Aura Sky on 11-02-2022 Chloride [Moles/Vol] 98 mmol/L 98-107 [facility] Glucose [Mass/Vol] 146 mg/dL 74-106 [facility] Comment on above: Fasting Glucose resu lt greater than or equal to 126 mg/dL suggests DIABETES MELLITUS per A.D.A. criteria. Potassium [Moles/Vol] 4.1 mmol/L 3.5-5.1 [facility] Sodium [Moles/Vol] 131 mmol/L 136-145 [facility] WBC (Bld) [#/Vol] 5.9 10*3/uL 4.4-11.0 [facility] Blood erythrocytes count (nu mber/volume)Ordered By: Aura Sky on 11-02-2022 RBC (Bld) [#/Vol] 3.51 10*6/uL 4.6-6.2 [facility] Blood hemoglobin measurement (mass/volume)Ordered By: Aura Sky on 11-02-2022 Hemoglobin (Bld) [Mass/Vol] 10.2 g/dL 13.0-16.5 [facility] Blood platelet mean volumeOr dered By: Aura Sky on 11-02-2022 Platelet mean volume (Bld) [Entitic vol] 10.9 fL 6.2-12.0 [facility] Determination of erythrocyte mean corpuscular volume (MCV)Ordered By: Aura Sky on 11-02-2022 MCV (RBC) [Entitic vol] 88.3 fL 80-94 [facility] Hematocrit Auto (Bld) [Volum e fraction]Ordered By: Aura Sky on 11-02-2022 Hematocrit (Bld) [Volume fraction] 31.0 % 40-54 [facility] Laboratory - Chemistry and C hemistry - challengeOrdered By: Aura Sky on 11-02-2022 CO2 [Moles/Vol] 29.0 mmol/L 21.0-32.0 [facility] Urea nitrogen/Creatinine [Mass ratio] 10.5 mg/mg 10-20 [facility] Laboratory - Hematology and Cell countsOrdered By: Aura Sky on 11-02-2022 Erythrocyte distribution width (RBC) [Entitic vol] 41.5 fL 35.1-43.9 [facility] Erythrocyte distribution width (RBC) [Ratio] 12.9 % 11.6-14.6 [facility] MCH (RBC) [Entitic mass] 29.1 pg 27.0-32.0 [facility] MCHC Auto (RBC) [Mass/Vol]Or dered By: Aura Sky on 11-02-2022 MCHC (RBC) [Mass/Vol] 32.9 g/dL 32-36 [facility] No Panel InformationOrdered By: Aura Sky on 11-02-2022 Estimated GFR (MDRD) Amer 62 mL/min >60 [facility] Comment on above: GFR Calc Estimated GFR (MDRD) Non-Af Amer 51 mL/min >60 [facility] Comment on above: Non- GFR Calc Platelets bldOrdered By: Doe Sky on 11-02-2022 Platelets (Bld) [#/Vol] 230 10*3/uL 150-450 [facility] Serum or plasma calcium maria l urement (mass/volume)Ordered By: Aura Sky on 11-02-2022 Calcium [Mass/Vol] 8.0 mg/dL 8.5-10.1 [facility] Serum or plasma creatinine m easurement (mass/volume)Ordered By: Aura Sky on 11-02-2022 Creatinine [Mass/Vol] 1.43 mg/dL 0.70-1.30 [facility] Comment on above: The validity of the calculated GFR & GFRAA in patients over 70 years has not been determined. Clinical correlation is essential. Serum or plasma urea nitroge n measurement (mass/volume)Ordered By: Aura Sky on 11-02-2022 Urea nitrogen [Mass/Vol] 15 mg/dL 7-18 [facility] Thin prep Papanicolaou smear with manual screeningOrdered By: Aura Sky on 11-02-2022 Thin prep Papanicolaou smear with manual screening 4 5-15 [facility] Basophil percentageOrdered B y: Aura Sky on 10-07-2022 Chloride [Moles/Vol] 101 mmol/L 98-107 [facility] Glucose [Mass/Vol] 79 mg/dL 74-106 [facility] Potassium [Moles/Vol] 4.6 mmol/L 3.5-5.1 [facility] Sodium [Moles/Vol] 133 mmol/L 136-145 [facility] WBC (Bld) [#/Vol] 6.2 10*3/uL 4.4-11.0 [facility] Blood erythrocytes count (nu mber/volume)Ordered By: Aura Sky on 10-07-2022 RBC (Bld) [#/Vol] 3.69 10*6/uL 4.6-6.2 [facility] Blood hemoglobin measurement (mass/volume)Ordered By: Aura Sky on 10-07-2022 Hemoglobin (Bld) [Mass/Vol] 10.8 g/dL 13.0-16.5 [facility] Blood platelet mean volumeOr dered By: Aura Sky on 10-07-2022 Platelet mean volume (Bld) [Entitic vol] 10.8 fL 6.2-12.0 [facility] Determination of erythrocyte mean corpuscular volume (MCV)Ordered By: Aura Sky on 10-07-2022 MCV (RBC) [Entitic vol] 89.2 fL 80-94 [facility] Hematocrit Auto (Bld) [Volum e fraction]Ordered By: Aura Sky on 10-07-2022 Hematocrit (Bld) [Volume fraction] 32.9 % 40-54 [facility] Laboratory - Chemistry and C hemistry - challengeOrdered By: Aura Sky on 10-07-2022 CO2 [Moles/Vol] 26.0 mmol/L 21.0-32.0 [facility] Urea nitrogen/Creatinine [Mass ratio] 13.1 mg/mg 10-20 [facility] Laboratory - Hematology and Cell countsOrdered By: Aura Sky on 10-07-2022 Erythrocyte distribution width (RBC) [Entitic vol] 42.9 fL 35.1-43.9 [facility] Erythrocyte distribution width (RBC) [Ratio] 13.2 % 11.6-14.6 [facility] MCH (RBC) [Entitic mass] 29.3 pg 27.0-32.0 [facility] MCHC Auto (RBC) [Mass/Vol]Or dered By: Aura Sky on 10-07-2022 MCHC (RBC) [Mass/Vol] 32.8 g/dL 32-36 [facility] No Panel InformationOrdered By: Aura Sky on 10-07-2022 Estimated GFR (MDRD) Amer 61 mL/min >60 [facility] Comment on above: GFR Calc Estimated GFR (MDRD) Non-Af Amer 50 mL/min >60 [facility] Comment on above: Non- GFR Calc Platelets bldOrdered By: Doe Sky on 10-07-2022 Platelets (Bld) [#/Vol] 215 10*3/uL 150-450 [facility] Serum or plasma calcium maria l urement (mass/volume)Ordered By: Aura Sky on 10-07-2022 Calcium [Mass/Vol] 8.1 mg/dL 8.5-10.1 [facility] Serum or plasma creatinine m easurement (mass/volume)Ordered By: Aura Sky on 10-07-2022 Creatinine [Mass/Vol] 1.45 mg/dL 0.70-1.30 [facility] Comment on above: The validity of the calculated GFR & GFRAA in patients over 70 years has not been determined. Clinical correlation is essential. Serum or plasma urea nitroge n measurement (mass/volume)Ordered By: Aura Sky on 10-07-2022 Urea nitrogen [Mass/Vol] 19 mg/dL 7-18 [facility] Thin prep Papanicolaou smear with manual screeningOrdered By: Aura Sky on 10-07-2022 Thin prep Papanicolaou smear with manual screening 6 5-15 [facility] Basophil percentageOrdered B y: Aura Sky on 10-05-2022 Chloride [Moles/Vol] 97 mmol/L 98-107 [facility] Glucose [Mass/Vol] 101 mg/dL 74-106 [facility] Comment on above: Fasting Glucose resu lt from 100 to 125 mg/dL suggests IMPAIRED HOMEOSTASIS per A.D.A. criteria. Potassium [Moles/Vol] 4.5 mmol/L 3.5-5.1 [facility] Comment on above: Slight Hemolysis, Re sult may be falsely increased. Sodium [Moles/Vol] 132 mmol/L 136-145 [facility] WBC (Bld) [#/Vol] 8.1 10*3/uL 4.4-11.0 [facility] Blood erythrocytes count (nu mber/volume)Ordered By: Aura Sky on 10-05-2022 RBC (Bld) [#/Vol] 3.68 10*6/uL 4.6-6.2 [facility] Blood hemoglobin measurement (mass/volume)Ordered By: Aura Sky on 10-05-2022 Hemoglobin (Bld) [Mass/Vol] 10.7 g/dL 13.0-16.5 [facility] Blood platelet mean volumeOr dered By: Aura Sky on 10-05-2022 Platelet mean volume (Bld) [Entitic vol] 11.1 fL 6.2-12.0 [facility] Determination of erythrocyte mean corpuscular volume (MCV)Ordered By: Aura Sky on 10-05-2022 MCV (RBC) [Entitic vol] 89.4 fL 80-94 [facility] Hematocrit Auto (Bld) [Volum e fraction]Ordered By: Aura Sky on 10-05-2022 Hematocrit (Bld) [Volume fraction] 32.9 % 40-54 [facility] Laboratory - Chemistry and C hemistry - challengeOrdered By: Aura Sky on 10-05-2022 CO2 [Moles/Vol] 29.0 mmol/L 21.0-32.0 [facility] Urea nitrogen/Creatinine [Mass ratio] 10.0 mg/mg 10-20 [facility] Laboratory - Hematology and Cell countsOrdered By: Aura Sky on 10-05-2022 Erythrocyte distribution width (RBC) [Entitic vol] 42.5 fL 35.1-43.9 [facility] Erythrocyte distribution width (RBC) [Ratio] 12.9 % 11.6-14.6 [facility] MCH (RBC) [Entitic mass] 29.1 pg 27.0-32.0 [facility] MCHC Auto (RBC) [Mass/Vol]Or dered By: Aura Sky on 10-05-2022 MCHC (RBC) [Mass/Vol] 32.5 g/dL 32-36 [facility] No Panel InformationOrdered By: Aura Sky on 10-05-2022 Estimated GFR (MDRD) Amer 51 mL/min >60 [facility] Comment on above: GFR Calc Estimated GFR (MDRD) Non-Af Amer 42 mL/min >60 [facility] Comment on above: Non- GFR Calc Platelets bldOrdered By: Doe Sky on 10-05-2022 Platelets (Bld) [#/Vol] 222 10*3/uL 150-450 [facility] Serum or plasma calcium maria l urement (mass/volume)Ordered By: Aura Sky on 10-05-2022 Calcium [Mass/Vol] 8.3 mg/dL 8.5-10.1 [facility] Serum or plasma creatinine m easurement (mass/volume)Ordered By: Aura Sky on 10-05-2022 Creatinine [Mass/Vol] 1.70 mg/dL 0.70-1.30 [facility] Comment on above: The validity of the calculated GFR & GFRAA in patients over 70 years has not been determined. Clinical correlation is essential. Serum or plasma urea nitroge n measurement (mass/volume)Ordered By: Aura Sky on 10-05-2022 Urea nitrogen [Mass/Vol] 17 mg/dL 7-18 [facility] Thin prep Papanicolaou smear with manual screeningOrdered By: Aura Sky on 10-05-2022 Thin prep Papanicolaou smear with manual screening 6 5-15 [facility] Basophil percentageOrdered B y: Aura Sky on 09-03-2022 Chloride [Moles/Vol] 97 mmol/L 98-107 [facility] Glucose [Mass/Vol] 130 mg/dL 74-106 [facility] Comment on above: Fasting Glucose resu lt greater than or equal to 126 mg/dL suggests DIABETES MELLITUS per A.D.A. criteria. Potassium [Moles/Vol] 3.8 mmol/L 3.5-5.1 [facility] Sodium [Moles/Vol] 134 mmol/L 136-145 [facility] WBC (Bld) [#/Vol] 6.3 10*3/uL 4.4-11.0 [facility] Blood erythrocytes count (nu mber/volume)Ordered By: Aura Sky on 09-03-2022 RBC (Bld) [#/Vol] 3.47 10*6/uL 4.6-6.2 [facility] Blood hemoglobin measurement (mass/volume)Ordered By: Aura Sky on 09-03-2022 Hemoglobin (Bld) [Mass/Vol] 10.2 g/dL 13.0-16.5 [facility] Blood platelet mean volumeOr dered By: Aura Sky on 09-03-2022 Platelet mean volume (Bld) [Entitic vol] 11.3 fL 6.2-12.0 [facility] Determination of erythrocyte mean corpuscular volume (MCV)Ordered By: Aura Sky on 09-03-2022 MCV (RBC) [Entitic vol] 89.6 fL 80-94 [facility] Hematocrit Auto (Bld) [Volum e fraction]Ordered By: Aura Sky on 09-03-2022 Hematocrit (Bld) [Volume fraction] 31.1 % 40-54 [facility] Laboratory - Chemistry and C hemistry - challengeOrdered By: Aura Sky on 09-03-2022 CO2 [Moles/Vol] 29.0 mmol/L 21.0-32.0 [facility] Urea nitrogen/Creatinine [Mass ratio] 12.1 mg/mg 10-20 [facility] - Hematology and Cell countsOrdered By: Aura Sky on 09-03-2022 Erythrocyte distribution width (RBC) [Entitic vol] 42.5 fL 35.1-43.9 [facility] Erythrocyte distribution width (RBC) [Ratio] 13.1 % 11.6-14.6 [facility] MCH (RBC) [Entitic mass] 29.4 pg 27.0-32.0 [facility] MCHC Auto (RBC) [Mass/Vol]Or dered By: Aura Sky on 09-03-2022 MCHC (RBC) [Mass/Vol] 32.8 g/dL 32-36 [facility] No Panel InformationOrdered By: Aura Sky on 09-03-2022 Estimated GFR (MDRD) Amer 59 mL/min >60 [facility] Comment on above: GFR Calc Estimated GFR (MDRD) Non-Af Amer 49 mL/min >60 [facility] Comment on above: Non- GFR Calc Platelets bldOrdered By: Doe Sky on 09-03-2022 Platelets (Bld) [#/Vol] 212 10*3/uL 150-450 [facility] Serum or plasma calcium maria l urement (mass/volume)Ordered By: Aura Sky on 09-03-2022 Calcium [Mass/Vol] 8.0 mg/dL 8.5-10.1 [facility] Serum or plasma creatinine m easurement (mass/volume)Ordered By: Aura Sky on 09-03-2022 Creatinine [Mass/Vol] 1.49 mg/dL 0.70-1.30 [facility] Comment on above: The validity of the calculated GFR & GFRAA in patients over 70 years has not been determined. Clinical correlation is essential. Serum or plasma urea nitroge n measurement (mass/volume)Ordered By: Aura Sky on 09-03-2022 Urea nitrogen [Mass/Vol] 18 mg/dL 7-18 [facility] Thin prep Papanicolaou smear with manual screeningOrdered By: Aura Sky on 09-03-2022 Thin prep Papanicolaou smear with manual screening 8 5-15 [facility] Basophil percentageOrdered B y: Aura Sky on 08-04-2022 Chloride [Moles/Vol] 97 mmol/L 98-107 [facility] Glucose [Mass/Vol] 109 mg/dL 74-106 [facility] Comment on above: Fasting Glucose resu lt from 100 to 125 mg/dL suggests IMPAIRED HOMEOSTASIS per A.D.A. criteria. Potassium [Moles/Vol] 4.1 mmol/L 3.5-5.1 [facility] Sodium [Moles/Vol] 131 mmol/L 136-145 [facility] WBC (Bld) [#/Vol] 7.6 10*3/uL 4.4-11.0 [facility] Blood erythrocytes count (nu mber/volume)Ordered By: Aura Sky on 08-04-2022 RBC (Bld) [#/Vol] 3.88 10*6/uL 4.6-6.2 [facility] Blood hemoglobin measurement (mass/volume)Ordered By: Aura Sky on 08-04-2022 Hemoglobin (Bld) [Mass/Vol] 11.1 g/dL 13.0-16.5 [facility] Blood platelet mean volumeOr dered By: Aura Sky on 08-04-2022 Platelet mean volume (Bld) [Entitic vol] 10.7 fL 6.2-12.0 [facility] Determination of erythrocyte mean corpuscular volume (MCV)Ordered By: Aura Sky on 08-04-2022 MCV (RBC) [Entitic vol] 88.9 fL 80-94 [facility] Hematocrit Auto (Bld) [Volum e fraction]Ordered By: Aura Sky on 08-04-2022 Hematocrit (Bld) [Volume fraction] 34.5 % 40-54 [facility] - Chemistry and C hemistry - challengeOrdered By: Aura Sky on 08-04-2022 CO2 [Moles/Vol] 29.0 mmol/L 21.0-32.0 [facility] Urea nitrogen/Creatinine [Mass ratio] 13.3 mg/mg 10-20 [facility] - Hematology and Cell countsOrdered By: Aura Sky on 08-04-2022 Erythrocyte distribution width (RBC) [Entitic vol] 43.9 fL 35.1-43.9 [facility] Erythrocyte distribution width (RBC) [Ratio] 13.4 % 11.6-14.6 [facility] MCH (RBC) [Entitic mass] 28.6 pg 27.0-32.0 [facility] MCHC Auto (RBC) [Mass/Vol]Or dered By: Aura Sky on 08-04-2022 MCHC (RBC) [Mass/Vol] 32.2 g/dL 32-36 [facility] No Panel InformationOrdered By: Aura Sky on 08-04-2022 Estimated GFR (MDRD) Amer 58 mL/min >60 [facility] Comment on above: GFR Calc Estimated GFR (MDRD) Non-Af Amer 48 mL/min >60 [facility] Comment on above: Non- GFR Calc Platelets bldOrdered By: Doe Sky on 08-04-2022 Platelets (Bld) [#/Vol] 271 10*3/uL 150-450 [facility] Serum or plasma calcium maria l urement (mass/volume)Ordered By: Aura Sky on 08-04-2022 Calcium [Mass/Vol] 8.3 mg/dL 8.5-10.1 [facility] Serum or plasma creatinine m easurement (mass/volume)Ordered By: Aura Sky on 08-04-2022 Creatinine [Mass/Vol] 1.50 mg/dL 0.70-1.30 [facility] Comment on above: The validity of the calculated GFR & GFRAA in patients over 70 years has not been determined. Clinical correlation is essential. Serum or plasma urea nitroge n measurement (mass/volume)Ordered By: Aura Sky on 08-04-2022 Urea nitrogen [Mass/Vol] 20 mg/dL 7-18 [facility] Thin prep Papanicolaou smear with manual screeningOrdered By: Aura Sky on 08-04-2022 Thin prep Papanicolaou smear with manual screening 5 5-15 [facility] Basophil percentageOrdered B y: Aura Sky on 07-06-2022 Chloride [Moles/Vol] 101 mmol/L 98-107 [facility] Glucose [Mass/Vol] 98 mg/dL 74-106 [facility] Potassium [Moles/Vol] 4.1 mmol/L 3.5-5.1 [facility] Sodium [Moles/Vol] 135 mmol/L 136-145 [facility] WBC (Bld) [#/Vol] 6.8 10*3/uL 4.4-11.0 [facility] Blood erythrocytes count (nu mber/volume)Ordered By: Aura Sky on 07-06-2022 RBC (Bld) [#/Vol] 3.40 10*6/uL 4.6-6.2 [facility] Blood hemoglobin measurement (mass/volume)Ordered By: Aura Sky on 07-06-2022 Hemoglobin (Bld) [Mass/Vol] 10.3 g/dL 13.0-16.5 [facility] Blood platelet mean volumeOr dered By: Aura Sky on 07-06-2022 Platelet mean volume (Bld) [Entitic vol] 11.3 fL 6.2-12.0 [facility] Determination of erythrocyte mean corpuscular volume (MCV)Ordered By: Aura Sky on 07-06-2022 MCV (RBC) [Entitic vol] 89.7 fL 80-94 [facility] Hematocrit Auto (Bld) [Volum e fraction]Ordered By: Aura Sky on 07-06-2022 Hematocrit (Bld) [Volume fraction] 30.5 % 40-54 [facility] - Chemistry and C hemistry - challengeOrdered By: Aura Sky on 07-06-2022 CO2 [Moles/Vol] 32.0 mmol/L 21.0-32.0 [facility] Urea nitrogen/Creatinine [Mass ratio] 10.3 mg/mg 10-20 [facility] - Hematology and Cell countsOrdered By: Aura Sky on 07-06-2022 Erythrocyte distribution width (RBC) [Entitic vol] 44.7 fL 35.1-43.9 [facility] Erythrocyte distribution width (RBC) [Ratio] 13.6 % 11.6-14.6 [facility] MCH (RBC) [Entitic mass] 30.3 pg 27.0-32.0 [facility] MCHC Auto (RBC) [Mass/Vol]Or dered By: Aura Sky on 07-06-2022 MCHC (RBC) [Mass/Vol] 33.8 g/dL 32-36 [facility] No Panel InformationOrdered By: Aura Sky on 07-06-2022 Estimated GFR (MDRD) Amer 60 mL/min >60 [facility] Comment on above: GFR Calc Estimated GFR (MDRD) Non-Af Amer 50 mL/min >60 [facility] Comment on above: Non- GFR Calc Platelets bldOrdered By: Doe Sky on 07-06-2022 Platelets (Bld) [#/Vol] 234 10*3/uL 150-450 [facility] Serum or plasma calcium maria l urement (mass/volume)Ordered By: Aura Sky on 07-06-2022 Calcium [Mass/Vol] 8.0 mg/dL 8.5-10.1 [facility] Serum or plasma creatinine m easurement (mass/volume)Ordered By: Aura Sky on 07-06-2022 Creatinine [Mass/Vol] 1.46 mg/dL 0.70-1.30 [facility] Comment on above: The validity of the calculated GFR & GFRAA in patients over 70 years has not been determined. Clinical correlation is essential. Serum or plasma urea nitroge n measurement (mass/volume)Ordered By: Aura Sky on 07-06-2022 Urea nitrogen [Mass/Vol] 15 mg/dL 7-18 [facility] Thin prep Papanicolaou smear with manual screeningOrdered By: Aura Sky on 07-06-2022 Thin prep Papanicolaou smear with manual screening 2 5-15 [facility] Basophil percentageOrdered B y: Aura Sky on 06-02-2022 Chloride [Moles/Vol] 104 mmol/L 98-107 [facility] Cholesterol [Mass/Vol] 140 mg/dL <200 [facility] Comment on above: <200 mg/dL Desirable 200-240 mg/dL Borderline >240 mg/dL High Risk Glucose [Mass/Vol] 140 mg/dL 74-106 [facility] Comment on above: Fasting Glucose resu lt greater than or equal to 126 mg/dL suggests DIABETES MELLITUS per A.D.A. criteria. Potassium [Moles/Vol] 4.2 mmol/L 3.5-5.1 [facility] Sodium [Moles/Vol] 136 mmol/L 136-145 [facility] Triglyceride [Mass/Vol] 75 mg/dL <199 [facility] Comment on above: The drugs N-Acetylcy steine and Metamizole may falsely depress this assay.Serum Triglycerides Reference Interval Normal <150 mg/dL Borderline high 150 - 199 mg/dL High 200 - 499 mg/dL Very High > or = 500 mg/dL WBC (Bld) [#/Vol] 6.5 10*3/uL 4.4-11.0 [facility] Blood erythrocytes count (nu mber/volume)Ordered By: Aura Sky on 06-02-2022 RBC (Bld) [#/Vol] 3.61 10*6/uL 4.6-6.2 [facility] Blood hemoglobin measurement (mass/volume)Ordered By: Aura Sky on 06-02-2022 Hemoglobin (Bld) [Mass/Vol] 10.6 g/dL 13.0-16.5 [facility] Blood platelet mean volumeOr dered By: Aura Sky on 06-02-2022 Platelet mean volume (Bld) [Entitic vol] 11.1 fL 6.2-12.0 [facility] CNOVon 06-02-2022 CNOV Office Visit (UROLMD ) -------- ELAINE COREA ([id number]) 1945 M Date Time Provider Department 06/02/22 9:15 AM JORDAN JORDAN JR UROLMD During your visit today, we recorded the following information about you: Weight Height 99 kg 1.676 m Jordan Jodran Jr, MD 06/02/2022 9:14 AM Signed ESTABLISHED PATIENT OFFICE VISIT HPI Elaine Corea is a 76 year old male [...] (no units) Date Value 01/09/2016 neg Specific [place], Ur (no units) Date Value 01/09/2016 1.010 [...] mouth daily at bedtime. blood sugar diagnostic (Gtxh ULTRA TEST) test strip Check blood sugars once a day. Levothyroxine 50 mcg cap Take 1 capsule by mouth once daily. lisinopril (ZESTRIL, PRINIVIL) 40 mg tablet Take 1 tablet by mouth once daily. lancets (SOLUS V2 LANCETS) 28 gauge [facility] Check blood sugar once daily. Dx: E11.40. [...] (HCC) 03/11/[address] 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 Normal [facility] Determination of erythrocyte mean corpuscular volume (MCV)Ordered By: Aura Sky on 06-02-2022 MCV (RBC) [Entitic vol] 90.0 fL 80-94 [facility] Hematocrit Auto (Bld) [Volum e fraction]Ordered By: Aura Sky on 06-02-2022 Hematocrit (Bld) [Volume fraction] 32.5 % 40-54 [facility] - Chemistry and C hemistry - challengeOrdered By: Aura Sky on 06-02-2022 CO2 [Moles/Vol] 28.0 mmol/L 21.0-32.0 [facility] Cobalamin (Vitamin B12) [Mass/Vol] 856 pg/mL 211-911 [facility] Urea nitrogen/Creatinine [Mass ratio] 15.9 mg/mg 10-20 [facility] Laboratory - Hematology and Cell countsOrdered By: Aura Sky on 06-02-2022 Erythrocyte distribution width (RBC) [Entitic vol] 44.0 fL 35.1-43.9 [facility] Erythrocyte distribution width (RBC) [Ratio] 13.3 % 11.6-14.6 [facility] MCH (RBC) [Entitic mass] 29.4 pg 27.0-32.0 [facility] MCHC Auto (RBC) [Mass/Vol]Or dered By: Aura Sky on 06-02-2022 MCHC (RBC) [Mass/Vol] 32.6 g/dL 32-36 [facility] No Panel InformationOrdered By: Aura Sky on 06-02-2022 Estimated GFR (MDRD) Amer 71 mL/min >60 [facility] Comment on above: GFR Calc Estimated GFR (MDRD) Non-Af Amer 59 mL/min >60 [facility] Comment on above: Non- GFR Calc Thyroid Stimulating Hormone (TSH) 2.81 uIU/mL 0.358-3.74 [facility] Platelets bldOrdered By: Doe Sky on 06-02-2022 Platelets (Bld) [#/Vol] 240 10*3/uL 150-450 [facility] Serum or plasma calcium maria l urement (mass/volume)Ordered By: Aura Sky on 06-02-2022 Calcium [Mass/Vol] 8.2 mg/dL 8.5-10.1 [facility] Serum or plasma cholesterol in HDL measurement (mass/volume)Ordered By: Aura Sky on 06-02-2022 Cholesterol in HDL [Mass/Vol] 54 mg/dL >40 [facility] Comment on above: The drugs N-Acetylcy steine and Metamizole may falsely depress this assay. Reference Range HDL <40 mg/dL Low HDL Cholesterol HDL >or= 60 mg/dL High HDL Cholesterol Serum or plasma cholesterol in VLDL measurement (mass/volume)Ordered By: Aura Sky on 06-02-2022 Cholesterol in VLDL [Mass/Vol] 15 mg/dL 5-40 [facility] Serum or plasma creatinine m easurement (mass/volume)Ordered By: Aura Sky on 06-02-2022 Creatinine [Mass/Vol] 1.26 mg/dL 0.70-1.30 [facility] Comment on above: The validity of the calculated GFR & GFRAA in patients over 70 years has not been determined. Clinical correlation is essential. Serum or plasma low density lipoprotein (LDL) cholesterol measurement (mass/volume)Ordered By: Aura Sky on 06-02-2022 Cholesterol in LDL [Mass/Vol] 71 mg/dL 0-130 [facility] Serum or plasma urea nitroge n measurement (mass/volume)Ordered By: Aura Sky on 06-02-2022 Urea nitrogen [Mass/Vol] 20 mg/dL 7-18 [facility] Thin prep Papanicolaou smear with manual screeningOrdered By: Aura Sky on 06-02-2022 Thin prep Papanicolaou smear with manual screening 4 5-15 [facility] Whole blood hemoglobin A1c/t otal hemoglobin ratio (mass fraction)Ordered By: Aura Sky on 06-02-2022 HbA1c (Bld) [Mass fraction] 7.1 % 3.8-5.6 [facility] Comment on above: Normal < 5.7 % Predi abetic 5.7 - 6.4 % Diabetic >or= 6.5 % Please note range changes. Basophil percentageon 2021 Chloride [Moles/Vol] 99 mmol/L 98-107 [facility] Work Phone: Cholesterol [Mass/Vol] 120 mg/dL <200 [facility] Work Phone: Comment on above: <200 mg/dL Desirable 200-240 mg/dL Borderline >240 mg/dL High Risk Glucose [Mass/Vol] 182 mg/dL 74-106 [facility] Work Phone: Comment on above: Fasting Glucose resu lt greater than or equal to 126 mg/dL suggests DIABETES MELLITUS per A.D.A. criteria. Potassium [Moles/Vol] 3.7 mmol/L 3.5-5.1 [facility] Work Phone: Sodium [Moles/Vol] 135 mmol/L 136-145 [facility] Work Phone: Triglyceride [Mass/Vol] 107 mg/dL <199 [facility] Work Phone: Comment on above: The drugs N-Acetylcy steine and Metamizole may falsely depress this assay.Serum Triglycerides Reference Interval Normal <150 mg/dL Borderline high 150 - 199 mg/dL High 200 - 499 mg/dL Very High > or = 500 mg/dL WBC (Bld) [#/Vol] 6.6 10*3/uL 4.4-11.0 [facility] Work Phone: Blood erythrocytes count (nu mber/volume)on 05-04-2022 RBC (Bld) [#/Vol] 3.26 10*6/uL 4.6-6.2 [facility]: Blood hemoglobin measurement (mass/volume)on 05-04-2022 Hemoglobin (Bld) [Mass/Vol] 9.4 g/dL 13.0-16.5 [facility] Work Phone: Blood platelet mean volumeon 05-04-2022 Platelet mean volume (Bld) [Entitic vol] 11.0 fL 6.2-12.0 [facility] Work Phone: Determination of erythrocyte mean corpuscular volume (MCV)on 05-04-2022 MCV (RBC) [Entitic vol] 91.7 fL 80-94 [facility] Work Phone: Hematocrit Auto (Bld) [Volum e fraction]on 05-04-2022 Hematocrit (Bld) [Volume fraction] 29.9 % 40-54 [facility] Work Phone: Laboratory - Chemistry and C hemistry - challengeon 05-04-2022 CO2 [Moles/Vol] 29.0 mmol/L 21.0-32.0 [facility] Work Phone: Cobalamin (Vitamin B12) [Mass/Vol] 442 pg/mL 211-911 [facility] Work Phone: Urea nitrogen/Creatinine [Mass ratio] 14.2 mg/mg 10-20 [facility] Work Phone: Laboratory - Hematology and Cell countson 05-04-2022 Erythrocyte distribution width (RBC) [Entitic vol] 45.2 fL 35.1-43.9 [facility] Work Phone: Erythrocyte distribution width (RBC) [Ratio] 13.5 % 11.6-14.6 [facility] Work Phone: MCH (RBC) [Entitic mass] 28.8 pg 27.0-32.0 [facility] Work Phone: MCHC Auto (RBC) [Mass/Vol]on 05-04-2022 MCHC (RBC) [Mass/Vol] 31.4 g/dL 32-36 [facility] Work Phone: No Panel Informationon 05-04 Estimated GFR (MDRD) Amer 76 mL/min >60 [facility] Work Phone: Comment on above: GFR Calc Estimated GFR (MDRD) Non-Af Amer 63 mL/min >60 [facility] Work Phone: Comment on above: Non- GFR Calc Thyroid Stimulating Hormone (TSH) 2.31 uIU/mL 0.358-3.74 [facility] Work Phone: Platelets bldon 05-04-2022 Platelets (Bld) [#/Vol] 256 10*3/uL 150-450 [facility] Work Phone: Serum or plasma calcium maria l urement (mass/volume)on 05-04-2022 Calcium [Mass/Vol] 8.0 mg/dL 8.5-10.1 [facility] Work Phone: Serum or plasma cholesterol in HDL measurement (mass/volume)on 05-04-2022 Cholesterol in HDL [Mass/Vol] 47 mg/dL >40 [facility] Work Phone: Comment on above: The drugs N-Acetylcy steine and Metamizole may falsely depress this assay. Reference Range HDL <40 mg/dL Low HDL Cholesterol HDL >or= 60 mg/dL High HDL Cholesterol Serum or plasma cholesterol in VLDL measurement (mass/volume)on 05-04-2022 Cholesterol in VLDL [Mass/Vol] 21 mg/dL 5-40 [facility] Work Phone: Serum or plasma creatinine m easurement (mass/volume)on 05-04-2022 Creatinine [Mass/Vol] 1.20 mg/dL 0.70-1.30 [facility] Work Phone: Comment on above: The validity of the calculated GFR & GFRAA in patients over 70 years has not been determined. Clinical correlation is essential. Serum or plasma low density lipoprotein (LDL) cholesterol measurement (mass/volume)on 05-04-2022 Cholesterol in LDL [Mass/Vol] 52 mg/dL 0-130 [facility] Work Phone: Serum or plasma urea nitroge n measurement (mass/volume)on 05-04-2022 Urea nitrogen [Mass/Vol] 17 mg/dL 7-18 [facility] Work Phone: Thin prep Papanicolaou smear with manual screeningon 05-04-2022 Thin prep Papanicolaou smear with manual screening 7 5-15 [facility] Work Phone: Whole blood hemoglobin A1c/t otal hemoglobin ratio (mass fraction)on 05-04-2022 HbA1c (Bld) [Mass fraction] 7.1 % 3.8-5.6 [facility] Work Phone: Comment on above: Normal < 5.7 % Predi abetic 5.7 - 6.4 % Diabetic >or= 6.5 % Please note range changes. Absolute lymphocyte counton 04-10-2022 Lymphocytes Auto (Unsp spec) [#/Vol] 2.55 10*3/uL 0.83-4.51 [facility] Work Phone: Basophil percentageon 2021 Basophil percentage 5-10 SEEN /hpf 0-5 [facility] Work Phone: Basophils/100 WBC (Bld) 0.2 % 0-1 [facility] Work Phone: Chloride [Moles/Vol] 100 mmol/L 98-107 [facility] Work Phone: Eosinophils/100 WBC (Bld) 1.0 % 0-5 [facility] Work Phone: Glucose [Mass/Vol] 181 mg/dL 74-106 [facility] Work Phone: Comment on above: Fasting Glucose resu lt greater than or equal to 126 mg/dL suggests DIABETES MELLITUS per A.D.A. criteria. Neutrophils (Bld) [#/Vol] 6.2 10*3/uL 2.0-7.7 [facility] Work Phone: Neutrophils/100 WBC (Bld) 62.5 % 47-70 [facility] Work Phone: Potassium [Moles/Vol] 4.4 mmol/L 3.5-5.1 [facility] Work Phone: Sodium [Moles/Vol] 133 mmol/L 136-145 [facility] Work Phone: WBC (Bld) [#/Vol] 10.0 10*3/uL 4.4-11.0 [facility] Work Phone: Bilirubin Test strip Ql (U)o n 04-10-2022 Bilirubin Ql (U) Negative Negative [facility] Work Phone: Blood erythrocytes count (nu mber/volume)on 04-10-2022 RBC (Bld) [#/Vol] 3.80 10*6/uL 4.6-6.2 [facility] Work Phone: Blood hemoglobin measurement (mass/volume)on 04-10-2022 Hemoglobin (Bld) [Mass/Vol] 11.1 g/dL 13.0-16.5 [facility] Work Phone: Blood lymphocytes/100 leukoc yteson 04-10-2022 Lymphocytes/100 WBC (Bld) 25.6 % 19-41 [facility] Work Phone: Blood monocytes/100 leukocyt eson 04-10-2022 Monocytes/100 WBC (Bld) 10.3 % 0-10 [facility] Work Phone: Blood platelet mean volumeon 04-10-2022 Platelet mean volume (Bld) [Entitic vol] 11.1 fL 6.2-12.0 [facility] Work Phone: CNOVon 04-10-2022 CNOV Office Visit (UROLMD ) -------- YURIELAINE VALDERRAMA ([id number]) 1945 M IPA Date Time Provider Department 04/10/22 9:00 AM OUSMANE DURAND UROMALLY During your visit today, we recorded the following information about you: Weight Height 96 kg 1.676 m Ousmane Durand MD 04/10/2022 10:03 AM Addendum [facility] UROLOG[facility] ESTABLISHED PATIENT CLINIC NOTE PATIENT INFO: Elaine Corea 76 year old PCP: Aura Sky MD UROLOGY DIAGNOSES: 1. Urine retention - ICD9: 788.20, ICD10: R33.9 (primary diagnosis) 2. Benign prostatic hyperplasia with urinary retention - ICD9: 600.01, 788.20, ICD10: N40.1, R33.8 CHIEF COMPLAINT: Requesting SPT HPI: Elaine oCrea returns for continuing evaluation and management. This is a 76-year-old male with history of BPH and chronic urinary retention who is on indwelling [place] catheter for the last 2 years. Patient lives in a fpc facility and has his catheter changed every [...] mouth daily at bedtime. blood sugar diagnostic (LyxiaTOUCH ULTRA TEST) test strip Check blood sugars once a day. Levothyroxine 50 mcg cap Take 1 capsule by mouth once daily. lisinopril (ZESTRIL, PRINIVIL) 40 mg tablet Take 1 tablet by mouth once daily. amLODIPine (NORVASC) 10 mg tablet Take 1 tablet by mouth once daily. lancets (SOLUS V2 LANCETS) 28 gauge [facility] Check blood sugar once daily. Dx: E11.40. glipiZIDE (GLUCOTROL) 10 mg tablet Take 2 tablets by mouth once daily. divalproex DR (DEPAKOTE) 500 mg EC tablet Take 1,000 mg by mouth daily at bedtime. No current facility-administered medications for this visit. PHYSICAL EXAM: Ht 167.6 cm (5' 6) Wt 96 kg (211 lb 9.6 oz) [...] (primary diagnosis) - Will refer to Dr. Jordan Jordan for SPT placement 2. Benign prostatic hyperplasia with urinary retention - ICD9: 600.01, 788.20, ICD10: N40.1, R33.8 -Remain on tamsulosin Consultation requested by Dr. Aura Sky for an opinion regarding Mr. Corea. My final (more content not included)... Normal [facility] Determination of erythrocyte mean corpuscular volume (MCV)on 04-10-2022 MCV (RBC) [Entitic vol] 88.9 fL 80-94 [facility] Work Phone: Glucose Glucometer (BldC) [M ass/Vol]on 04-10-2022 Glucose [Mass/Vol] 102 mg/dL 74-106 [facility] Work Phone: Comment on above: MANAGEMENT OF PATIEN T CARE PER NURSING PROTOCOL Hematocrit Auto (Bld) [Volum e fraction]on 04-10-2022 Hematocrit (Bld) [Volume fraction] 33.8 % 40-54 [facility] [facility] Work Phone: Ketones Test strip Ql (U)on 04-10-2022 Ketones Ql (U) Negative Negative [facility] Work Phone: Laboratory - Chemistry and C hemistry - challengeon 04-10-2022 CO2 [Moles/Vol] 27.0 mmol/L 21.0-32.0 [facility] Work Phone: Urea nitrogen/Creatinine [Mass ratio] 16.2 mg/mg 10-20 [facility] Work Phone: Laboratory - Drug toxicology on 04-10-2022 Amphetamines Ql (U) Negative <1000 ng/mL [facility] Work Phone: Benzodiazepines Ql (U) Negative < 200 ng/mL [facility] Work Phone: Cannabinoids Screen Ql (U) Negative < 50 ng/mL [facility] Work Phone: Cocaine Ql (U) Negative < 300 ng/mL [facility] Work Phone: Opiates Ql (U) Negative < 300 ng/mL [facility] Work Phone: Laboratory - Hematology and Cell countson 04-10-2022 Erythrocyte distribution width (RBC) [Entitic vol] 43.7 fL 35.1-43.9 [facility] Work Phone: Erythrocyte distribution width (RBC) [Ratio] 13.4 % 11.6-14.6 [facility] Work Phone: Immature granulocytes/100 WBC (Bld) 0.400 % 0.0-0.9 [facility] Work Phone: Comment on above: IG% - Immature Granu locytes (promyelocytes, myelocytes and metamyelocytes) > 1% indicates that a LEFT SHIFT is Present. MCH (RBC) [Entitic mass] 29.2 pg 27.0-32.0 [facility] Work Phone: Nucleated RBC/100 WBC (Bld) [Ratio] 0 % 0-5 [facility] Work Phone: MCHC Auto (RBC) [Mass/Vol]on 04-10-2022 MCHC (RBC) [Mass/Vol] 32.8 g/dL 32-36 [facility] Work Phone: Magnesium ammonium phosphate crystal detectionon 04-10-2022 Triple phosphate crystals LM Ql (Urine sed) 4+ /hpf [facility] Work Phone: Mucus LM Ql (Urine sed)on Mucus Ql (Urine sed) 0 SEEN /hpf [facility] Work Phone: Nitrite Test strip Ql (U)on 04-10-2022 Nitrite Ql (U) Negative Negative [facility] Work Phone: No Panel Informationon 04-10 Estimated Creatinine Clearance Calc 38.32 ml/min [facility] Work Phone: Estimated GFR (MDRD) Amer 59 mL/min >60 [facility] Work Phone: Comment on above: GFR Calc Estimated GFR (MDRD) Non-Af Amer 49 mL/min >60 [facility] Work Phone: Comment on above: Non- GFR Calc Ethyl Alcohol Level 7.0 mg/dL [facility] Work Phone: Comment on above: The serum:whole bloo d ethanol ratio is approximately 1.14and varies slightly with hematocrit. Medical Alcohol reference interval and critical value innon-tolerant individuals; 50 - 100 Impairment 100 Intoxication 100 - 250 Severe Poisoning 250 - 400 Deep/possible fatal coma MDMA (Ecstasy) Screen Negative < 500 ng/mL [facility] Work Phone: Urine Barbiturates Screen Negative < 200 ng/mL [facility] Work Phone: Urine Drug Screen Comment [facility] Work Phone: Comment on above: CONFIRMATORY TESTING FOR ALL POSITIVE URINE DRUG SCREENRESULTS WILL ONLY BE SENT OUT UPON PHYSICIAN ORDER. VISTA Urine Drug Screen methods provide only preliminaryanalytical test results. A more specific alternate chemicalmethod must be used in order to obtain a confirmedanalytical result. Gas chromatography/mass spectrometery(GC/MS) is the preferred confirmatory method. Clinicalconsideration and professional judgement should be appliedto any drug of abuse test result, particularly whenpreliminary positive results are used. URINE TCA TESTING MUST BE ORDERED SEPARATELY. USE TESTMNEMONIC: [facility] Urine Methadone Screen Negative < 300 ng/mL [facility] Work Phone: Platelets bldon 04-10-2022 Platelets (Bld) [#/Vol] 288 10*3/uL 150-450 [facility] Work Phone: Protein Test strip Ql (U)on 04-10-2022 Protein Ql (U) 100 mg/dl Negative [facility] Work Phone: Serum or plasma calcium maria l urement (mass/volume)on 04-10-2022 Calcium [Mass/Vol] 8.4 mg/dL 8.5-10.1 [facility] Work Phone: Serum or plasma creatinine m easurement (mass/volume)on 04-10-2022 Creatinine [Mass/Vol] 1.48 mg/dL 0.70-1.30 [facility] Work Phone: Comment on above: The validity of the calculated GFR & GFRAA in patients over 70 years has not been determined. Clinical correlation is essential. Serum or plasma urea nitroge n measurement (mass/volume)on 04-10-2022 Urea nitrogen [Mass/Vol] 24 mg/dL 7-18 [facility] Work Phone: Squamous epithelial cells de tection in urine sediment by light microscopyon 04-10-2022 Epithelial cells.squamous LM Ql (Urine sed) 5-10 SEEN /hpf 0-5 [facility] Work Phone: Thin prep Papanicolaou smear with manual screeningon 04-10-2022 Thin prep Papanicolaou smear with manual screening 6 5-15 [facility] Work Phone: Urine blood detectionon RBC Ql (U) 150 /ul Negative [facility] Work Phone: RBC Ql (U) 5-10 SEEN /hpf 0-5 [facility] Work Phone: Urine clarityon 04-10-2022 Clarity (U) Cloudy Clear [facility] Work Phone: Urine color determinationon 04-10-2022 Color (U) Yellow Yellow [facility] Work Phone: Urine glucose detectionon Glucose Ql (U) Normal mg/dl Normal [facility] Work Phone: Urine leukocyte esterase det ection by dipstickon 04-10-2022 Leukocyte esterase Test strip Ql (U) 500 /ul Negative [facility] Work Phone: Urine pHon 04-10-2022 pH (U) 8.0 [pH] 5.0 - 8.0 [facility] Work Phone: Urine phencyclidine (PCP) de tectionon 04-10-2022 Phencyclidine Ql (U) Negative < 25 ng/mL [facility] Work Phone: Urine sediment bacteria coun t by microscopy (number/high power field)on 04-10-2022 Bacteria LM.HPF (Urine sed) [#/Area] 2 /[HPF] None Seen [facility] Work Phone: Urine specific gravity measu rementon 04-10-2022 Specific gravity (U) [Rel density] 1.010 1.002-1.030 [facility] Work Phone: Urobilinogen Auto test strip Ql (U)on 04-10-2022 Urobilinogen Ql (U) Normal mg/dl Normal [facility] Work Phone: Basophil percentageon 2021 Chloride [Moles/Vol] 106 mmol/L 98-107 [facility] Work Phone: Glucose [Mass/Vol] 96 mg/dL 74-106 [facility] Work Phone: Potassium [Moles/Vol] 3.9 mmol/L 3.5-5.1 [facility] Work Phone: Sodium [Moles/Vol] 138 mmol/L 136-145 [facility] Work Phone: WBC (Bld) [#/Vol] 6.5 10*3/uL 4.4-11.0 [facility] Work Phone: Blood erythrocytes count (nu mber/volume)on 04-03-2022 RBC (Bld) [#/Vol] 3.71 10*6/uL 4.6-6.2 [facility] Work Phone: Blood hemoglobin measurement (mass/volume)on 04-03-2022 Hemoglobin (Bld) [Mass/Vol] 11.0 g/dL 13.0-16.5 [facility] Work Phone: Blood platelet mean volumeon 04-03-2022 Platelet mean volume (Bld) [Entitic vol] 11.3 fL 6.2-12.0 [facility] Work Phone: CNPNon 04-03-2022 CNPN Telephone (UROLWS) -------- ELAINE COREA ([id number]) 1945 M IPA Date Time Provider Department 04/03/22 FITZ RANGEL During your visit today, we recorded the following information about you: Guerita Reid RN 04/03/2022 9:48 AM Signed [place] nurse with [facility] calling. States pt. wants to discuss getting suprapubic cath placed. Wants to know where he would have this procedure done at? Pt. also has other urinary related questions that he would like answered. This nurse advised that pt come in for in person appointment to have all questions answered. Duran would like a call back with appt. time. Please call him at [phone] x [phone]. OLINDA Patel PA-C 04/03/2022 9:54 AM Signed Needs a Staff Urologist who does the SPT procedure, closest would be [facility] they will require a in-person visit and discussion with patient. They can call them direct , I am not familiar with who can do the surgery but I am sure there are 3-4 at least there. [facility] [place], PAMayra Verma LPN 04/03/2022 10:15 AM Signed Called Duran. No answer- left message. Verified name and date of . Guerita Reid RN 04/03/2022 10:16 AM Signed Called Duran, notified him of below information. States he plans to call Dr. Sosa in [place] and set up appt with him. Will consider having pt. see Fitz for any future urology needs. Guerita Reid RN Allergies As of Date: 04/03/2022 Noted Allergy Reaction MAXZIDE (TRIAMTERENE-HYDROCHLORO T*04/17/2016 14 - Other: See Comments Comments: Hyponatremia Date Reviewed: 09/20/2020 Reviewed by: Fitz Torres) Saul - Fully Assessed Reason for Visit: Patient Question [1477] Prescriptions as of 04/03/2022 - BISACODYL RECTAL by RECTAL route as needed (constipation). - ergocalciferol, vitamin D2, (VITAMIN D2 ORAL) Take by mouth. - ferrous sulfate 325 mg (65 mg iron) tablet Take 325 mg by mouth daily with breakfast. - tamsulosin (FLOMAX) 0.4 mg Take 0.4 mg by mouth twice daily. - hydrALAZINE (APRESOLINE) 25 mg tablet Take 25 mg by mouth twice daily. - cyanocobalamin, vitamin B-12, 500 mcg chew Take by mouth. - cyclobenzaprine (FLEXERIL) 5 mg tablet Take 5 mg by mouth three times daily as needed. - insulin glargine,hum.rec.anlog (LANTUS SUBCUTANEOUS) Inject subcutaneously. - furosemide (LASIX) 20 mg tablet Take 20 mg by mouth twice daily. - meloxicam (MOBIC) 7.5 mg tablet Take 7.5 mg by mouth once daily. - potassium chloride (KLOR-CON) 20 mEq packet Take by mouth twice daily. - risperiDONE (RISPERDAL) 2 mg tablet Take 2 mg by mouth twice daily. - QUEtiapine (SEROQUEL) 100 mg tablet Take 100 mg by mouth twice daily. - QUEtiapine (SEROQUEL) 300 mg tablet Take 300 mg by mouth daily at bedtime. - OXcarbazepine (TRILEPTAL) 600 mg tablet Take 600 mg by mouth twice daily. - hydrOXYzine pamoate (VISTARIL) 25 mg capsule Take 25 mg by mouth three times daily as needed. - atorvastatin (LIPITOR) 40 mg tablet Take 40 mg by mouth once daily. - levothyroxine (SYNTHROID) 50 mcg tablet Take 50 mcg by mouth once daily. - SEROQUEL XR 50 mg Tb24 Take two tablets by mouth at bedtime. - QUEtiapine XR (SEROQUEL XR) 300 mg 24 hr tablet Take 1 tablet by mouth daily at bedtime. - omeprazole (PRILOSEC) 20 mg capsule Take 1 capsule by mouth twice daily. - SAXagliptin (ONGLYZA) 5 mg tab Take 1 tablet by mouth once daily. - ranitidine (ZANTAC) 150 mg tablet Take 1 tablet by mouth once daily. - metFORMIN ER (GLUCOPHAGE XR) 500 mg 24 hr tablet Take 1 tablet by mouth twice daily with breakfast and dinner - pioglitazone (ACTOS) 15 mg tablet Take 1 tablet by mouth once daily. - busPIRone (BUSPAR) 10 mg tablet Take 1 tablet by mouth twice daily. - simvastatin (ZOCOR) 80 mg tablet Take 1 tablet by mouth daily at bedtime. - blood sugar diagnostic (Gtxh ULTRA TEST) test strip Check blood sugars once a day. - Levothyroxine 50 mcg cap Take 1 capsule by mouth once daily. - lisinopril (ZESTRIL, PRINIVIL) 40 mg tablet Take 1 tablet by mouth once daily. - amLODIPine (NORVASC) 10 mg tablet Take 1 tablet by mouth once daily. - lancets (SOLUS V2 LANCETS) 28 gauge misc Check blood sugar once daily. Dx: E11.40. - glipiZIDE (GLUCOTROL) 10 mg tablet Take 2 tablets by mouth once daily. - divalproex DR (DEPAKOTE) 500 mg EC tablet Take 1,000 mg by mouth daily at bedtime. 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 Normal [facility] Determination of erythrocyte mean corpuscular volume (MCV)on 04-03-2022 MCV (RBC) [Entitic vol] 90.3 fL 80-94 [facility] Work Phone: Hematocrit Auto (Bld) [Volum e fraction]on 04-03-2022 Hematocrit (Bld) [Volume fraction] 33.5 % 40-54 [facility] Work Phone: Laboratory - Chemistry and C hemistry - challengeon 04-03-2022 CO2 [Moles/Vol] 28.0 mmol/L 21.0-32.0 [facility] Work Phone: Urea nitrogen/Creatinine [Mass ratio] 15.2 mg/mg 10-20 [facility] Work Phone: Laboratory - Hematology and Cell countson 04-03-2022 Erythrocyte distribution width (RBC) [Entitic vol] 45.6 fL 35.1-43.9 [facility] Work Phone: Erythrocyte distribution width (RBC) [Ratio] 13.8 % 11.6-14.6 [facility] Work Phone: MCH (RBC) [Entitic mass] 29.6 pg 27.0-32.0 [facility] Work Phone: MCHC Auto (RBC) [Mass/Vol]on 04-03-2022 MCHC (RBC) [Mass/Vol] 32.8 g/dL 32-36 [facility] Work Phone: No Panel Informationon 04-03 Estimated GFR (MDRD) Amer 72 mL/min >60 [facility] Work Phone: Comment on above: GFR Calc Estimated GFR (MDRD) Non-Af Amer 60 mL/min >60 [facility] Work Phone: Comment on above: Non- GFR Calc Platelets bldon 04-03-2022 Platelets (Bld) [#/Vol] 233 10*3/uL 150-450 [facility] Work Phone: Serum or plasma calcium maria l urement (mass/volume)on 04-03-2022 Calcium [Mass/Vol] 8.1 mg/dL 8.5-10.1 [facility] Work Phone: Serum or plasma creatinine m easurement (mass/volume)on 04-03-2022 Creatinine [Mass/Vol] 1.25 mg/dL 0.70-1.30 [facility] Work Phone: Comment on above: The validity of the calculated GFR & GFRAA in patients over 70 years has not been determined. Clinical correlation is essential. Serum or plasma urea nitroge n measurement (mass/volume)on 04-03-2022 Urea nitrogen [Mass/Vol] 19 mg/dL 7-18 [facility] Work Phone: Thin prep Papanicolaou smear with manual screeningon 04-03-2022 Thin prep Papanicolaou smear with manual screening 4 5-15 [facility] Work Phone: [phone] Basophil percentageon 2021 Chloride [Moles/Vol] 104 mmol/L 98-107 [facility] Work Phone: Glucose [Mass/Vol] 85 mg/dL 74-106 [facility] Work Phone: Potassium [Moles/Vol] 3.7 mmol/L 3.5-5.1 [facility] Work Phone: Sodium [Moles/Vol] 139 mmol/L 136-145 [facility] Work Phone: WBC (Bld) [#/Vol] 7.4 10*3/uL 4.4-11.0 [facility] Work Phone: Blood erythrocytes count (nu mber/volume)on 03-03-2022 RBC (Bld) [#/Vol] 3.56 10*6/uL 4.6-6.2 [facility] Work Phone: Blood hemoglobin measurement (mass/volume)on 03-03-2022 Hemoglobin (Bld) [Mass/Vol] 10.7 g/dL 13.0-16.5 [facility] Work Phone: Blood platelet mean volumeon 03-03-2022 Platelet mean volume (Bld) [Entitic vol] 12.2 fL 6.2-12.0 [facility] Work Phone: Determination of erythrocyte mean corpuscular volume (MCV)on 03-03-2022 MCV (RBC) [Entitic vol] 93.0 fL 80-94 [facility] Work Phone: Hematocrit Auto (Bld) [Volum e fraction]on 03-03-2022 Hematocrit (Bld) [Volume fraction] 33.1 % 40-54 [facility] Work Phone: Laboratory - Chemistry and C hemistry - challengeon 03-03-2022 CO2 [Moles/Vol] 31.0 mmol/L 21.0-32.0 [facility] Work Phone: Urea nitrogen/Creatinine [Mass ratio] 14.0 mg/mg 10-20 [facility] Work Phone: Laboratory - Hematology and Cell countson 03-03-2022 Erythrocyte distribution width (RBC) [Entitic vol] 51.8 fL 35.1-43.9 [facility] Work Phone: Erythrocyte distribution width (RBC) [Ratio] 15.0 % 11.6-14.6 [facility] Work Phone: MCH (RBC) [Entitic mass] 30.1 pg 27.0-32.0 [facility] Work Phone: MCHC Auto (RBC) [Mass/Vol]on 03-03-2022 MCHC (RBC) [Mass/Vol] 32.3 g/dL 32-36 [facility] Work Phone: No Panel Informationon 03-03 Estimated GFR (MDRD) Amer 75 mL/min >60 [facility] Work Phone: Comment on above: GFR Calc Estimated GFR (MDRD) Non-Af Amer 62 mL/min >60 [facility] Work Phone: Comment on above: Non- GFR Calc Platelets bldon 03-03-2022 Platelets (Bld) [#/Vol] 196 10*3/uL 150-450 [facility] Work Phone: Serum or plasma calcium maria l urement (mass/volume)on 03-03-2022 Calcium [Mass/Vol] 8.3 mg/dL 8.5-10.1 [facility] Work Phone: Serum or plasma creatinine m easurement (mass/volume)on 03-03-2022 Creatinine [Mass/Vol] 1.21 mg/dL 0.70-1.30 [facility] Work Phone: Comment on above: The validity of the calculated GFR & GFRAA in patients over 70 years has not been determined. Clinical correlation is essential. Serum or plasma urea nitroge n measurement (mass/volume)on 03-03-2022 Urea nitrogen [Mass/Vol] 17 mg/dL 7-18 [facility] Work Phone: Thin prep Papanicolaou smear with manual screeningon 03-03-2022 Thin prep Papanicolaou smear with manual screening 4 5-15 [facility] Work Phone: Basophil percentageon 2021 Chloride [Moles/Vol] 104 mmol/L 98-107 [facility] Work Phone: Glucose [Mass/Vol] 104 mg/dL 74-106 [facility] Work Phone: Comment on above: Fasting Glucose resu lt from 100 to 125 mg/dL suggests IMPAIRED HOMEOSTASIS per A.D.A. criteria. Potassium [Moles/Vol] 3.8 mmol/L 3.5-5.1 [facility] Work Phone: Sodium [Moles/Vol] 139 mmol/L 136-145 [facility] Work Phone: WBC (Bld) [#/Vol] 7.4 10*3/uL 4.4-11.0 [facility] Work Phone: Blood erythrocytes count (nu mber/volume)on 02-02-2022 RBC (Bld) [#/Vol] 3.64 10*6/uL 4.6-6.2 [facility] Work Phone: Blood hemoglobin measurement (mass/volume)on 02-02-2022 Hemoglobin (Bld) [Mass/Vol] 10.5 g/dL 13.0-16.5 [facility] Work Phone: Blood platelet mean volumeon 02-02-2022 Platelet mean volume (Bld) [Entitic vol] 11.6 fL 6.2-12.0 [facility] Work Phone: Determination of erythrocyte mean corpuscular volume (MCV)on 02-02-2022 MCV (RBC) [Entitic vol] 91.2 fL 80-94 [facility] Work Phone: Hematocrit Auto (Bld) [Volum e fraction]on 02-02-2022 Hematocrit (Bld) [Volume fraction] 33.2 % 40-54 [facility] Work Phone: Laboratory - Chemistry and C hemistry - challengeon 02-02-2022 CO2 [Moles/Vol] 30.0 mmol/L 21.0-32.0 [facility] Work Phone: Cobalamin (Vitamin B12) [Mass/Vol] 789 pg/mL 211-911 [facility] Work Phone: Urea nitrogen/Creatinine [Mass ratio] 11.1 mg/mg 10-20 [facility] Work Phone: Laboratory - Hematology and Cell countson 02-02-2022 Erythrocyte distribution width (RBC) [Entitic vol] 49.2 fL 35.1-43.9 [facility] Work Phone: Erythrocyte distribution width (RBC) [Ratio] 14.8 % 11.6-14.6 [facility] Work Phone: MCH (RBC) [Entitic mass] 28.8 pg 27.0-32.0 [facility] Work Phone: MCHC Auto (RBC) [Mass/Vol]on 02-02-2022 MCHC (RBC) [Mass/Vol] 31.6 g/dL 32-36 [facility] Work Phone: No Panel Informationon 02-02 Estimated GFR (MDRD) Amer 72 mL/min >60 [facility] Work Phone: Comment on above: GFR Calc Estimated GFR (MDRD) Non-Af Amer 59 mL/min >60 [facility] Work Phone: Comment on above: Non- GFR Calc Platelets bldon 02-02-2022 Platelets (Bld) [#/Vol] 247 10*3/uL 150-450 [facility] Work Phone: Serum or plasma calcium maria l urement (mass/volume)on 02-02-2022 Calcium [Mass/Vol] 8.5 mg/dL 8.5-10.1 [facility] Work Phone: Serum or plasma creatinine m easurement (mass/volume)on 02-02-2022 Creatinine [Mass/Vol] 1.26 mg/dL 0.70-1.30 [facility] Work Phone: Comment on above: The validity of the calculated GFR & GFRAA in patients over 70 years has not been determined. Clinical correlation is essential. Serum or plasma urea nitroge n measurement (mass/volume)on 02-02-2022 Urea nitrogen [Mass/Vol] 14 mg/dL 7-18 [facility] Work Phone: Thin prep Papanicolaou smear with manual screeningon 02-02-2022 Thin prep Papanicolaou smear with manual screening 5 5-15 [facility] Work Phone: Basophil percentageon 2021 Chloride [Moles/Vol] 98 mmol/L 98-107 [facility] Work Phone: Glucose [Mass/Vol] 88 mg/dL 74-106 [facility] Work Phone: Potassium [Moles/Vol] 3.3 mmol/L 3.5-5.1 [facility] Work Phone: Sodium [Moles/Vol] 132 mmol/L 136-145 [facility] Work Phone: WBC (Bld) [#/Vol] 9.0 10*3/uL 4.4-11.0 [facility] Work Phone: Blood erythrocytes count (nu mber/volume)on 01-02-2022 RBC (Bld) [#/Vol] 3.67 10*6/uL 4.6-6.2 [facility] Work Phone: Blood hemoglobin measurement (mass/volume)on 01-02-2022 Hemoglobin (Bld) [Mass/Vol] 10.6 g/dL 13.0-16.5 [facility] Work Phone: Blood platelet mean volumeon 01-02-2022 Platelet mean volume (Bld) [Entitic vol] 12.0 fL 6.2-12.0 [facility] Work Phone: Determination of erythrocyte mean corpuscular volume (MCV)on 01-02-2022 MCV (RBC) [Entitic vol] 87.7 fL 80-94 [facility] Work Phone: Hematocrit Auto (Bld) [Volum e fraction]on 01-02-2022 Hematocrit (Bld) [Volume fraction] 32.2 % 40-54 [facility] Work Phone: Laboratory - Chemistry and C hemistry - challengeon 01-02-2022 CO2 [Moles/Vol] 28.0 mmol/L 21.0-32.0 [facility] Work Phone: Urea nitrogen/Creatinine [Mass ratio] 10.3 mg/mg 10-20 [facility] Work Phone: Laboratory - Hematology and Cell countson 01-02-2022 Erythrocyte distribution width (RBC) [Entitic vol] 45.0 fL 35.1-43.9 [facility] Work Phone: Erythrocyte distribution width (RBC) [Ratio] 13.9 % 11.6-14.6 [facility] Work Phone: MCH (RBC) [Entitic mass] 28.9 pg 27.0-32.0 [facility] Work Phone: MCHC Auto (RBC) [Mass/Vol]on 01-02-2022 MCHC (RBC) [Mass/Vol] 32.9 g/dL 32-36 [facility] Work Phone: No Panel Informationon 01-02 Estimated GFR (MDRD) Amer 61 mL/min >60 [facility] Work Phone: Comment on above: GFR Calc Estimated GFR (MDRD) Non-Af Amer 50 mL/min >60 [facility] Work Phone: Comment on above: Non- GFR Calc Platelets bldon 01-02-2022 Platelets (Bld) [#/Vol] 234 10*3/uL 150-450 [facility] Work Phone: Serum or plasma calcium maria l urement (mass/volume)on 01-02-2022 Calcium [Mass/Vol] 8.0 mg/dL 8.5-10.1 [facility] Work Phone: Serum or plasma creatinine m easurement (mass/volume)on 01-02-2022 Creatinine [Mass/Vol] 1.45 mg/dL 0.70-1.30 [facility] Work Phone: Comment on above: The validity of the calculated GFR & GFRAA in patients over 70 years has not been determined. Clinical correlation is essential. Serum or plasma urea nitroge n measurement (mass/volume)on 01-02-2022 Urea nitrogen [Mass/Vol] 15 mg/dL 7-18 [facility] Work Phone: Thin prep Papanicolaou smear with manual screeningon 01-02-2022 Thin prep Papanicolaou smear with manual screening 6 5-15 [facility] Work Phone: Basophil percentageon 2021 Chloride [Moles/Vol] 101 mmol/L 98-107 [facility] Work Phone: Glucose [Mass/Vol] 99 mg/dL 74-106 [facility] Work Phone: Potassium [Moles/Vol] 3.7 mmol/L 3.5-5.1 [facility] Work Phone: Sodium [Moles/Vol] 136 mmol/L 136-145 [facility] Work Phone: Laboratory - Chemistry and C hemistry - challengeon 12-17-2021 CO2 [Moles/Vol] 32.0 mmol/L 21.0-32.0 [facility] Work Phone: Urea nitrogen/Creatinine [Mass ratio] 13.3 mg/mg 10-20 [facility] Work Phone: No Panel Informationon 12-17 Estimated GFR (MDRD) Amer 88 mL/min >60 [facility] Work Phone: Comment on above: GFR Calc Estimated GFR (MDRD) Non-Af Amer 73 mL/min >60 [facility] Work Phone: Comment on above: Non- GFR Calc Serum or plasma calcium maria l urement (mass/volume)on 12-17-2021 Calcium [Mass/Vol] 8.2 mg/dL 8.5-10.1 [facility] Work Phone: Serum or plasma creatinine m easurement (mass/volume)on 12-17-2021 Creatinine [Mass/Vol] 1.05 mg/dL 0.70-1.30 [facility] Work Phone: Comment on above: The validity of the calculated GFR & GFRAA in patients over 70 years has not been determined. Clinical correlation is essential. Serum or plasma urea nitroge n measurement (mass/volume)on 12-17-2021 Urea nitrogen [Mass/Vol] 14 mg/dL 7-18 [facility] Work Phone: Thin prep Papanicolaou smear with manual screeningon 12-17-2021 Thin prep Papanicolaou smear with manual screening 3 5-15 [facility] Work Phone: Basophil percentageon 2021 Chloride [Moles/Vol] 95 mmol/L 98-107 [facility] Work Phone: Cholesterol [Mass/Vol] 107 mg/dL <200 [facility] Work Phone: Comment on above: <200 mg/dL Desirable 200-240 mg/dL Borderline >240 mg/dL High Risk Glucose [Mass/Vol] 84 mg/dL 74-106 [facility] Work Phone: Potassium [Moles/Vol] 4.3 mmol/L 3.5-5.1 [facility] Work Phone: Sodium [Moles/Vol] 128 mmol/L 136-145 [facility] Work Phone: Triglyceride [Mass/Vol] 81 mg/dL <199 [facility] Work Phone: Comment on above: The drugs N-Acetylcy steine and Metamizole may falsely depress this assay.Serum Triglycerides Reference Interval Normal <150 mg/dL Borderline high 150 - 199 mg/dL High 200 - 499 mg/dL Very High > or = 500 mg/dL WBC (Bld) [#/Vol] 11.1 10*3/uL 4.4-11.0 [facility] Work Phone: Blood erythrocytes count (nu mber/volume)on 12-02-2021 RBC (Bld) [#/Vol] 3.81 10*6/uL 4.6-6.2 [facility] Work Phone: Blood hemoglobin measurement (mass/volume)on 12-02-2021 Hemoglobin (Bld) [Mass/Vol] 11.0 g/dL 13.0-16.5 [facility] Work Phone: Blood platelet mean volumeon 12-02-2021 Platelet mean volume (Bld) [Entitic vol] 12.1 fL 6.2-12.0 [facility] Work Phone: Determination of erythrocyte mean corpuscular volume (MCV)on 12-02-2021 MCV (RBC) [Entitic vol] 85.6 fL 80-94 [facility] Work Phone: Hematocrit Auto (Bld) [Volum e fraction]on 12-02-2021 Hematocrit (Bld) [Volume fraction] 32.6 % 40-54 [facility] Work Phone: Laboratory - Chemistry and C hemistry - challengeon 12-02-2021 CO2 [Moles/Vol] 27.0 mmol/L 21.0-32.0 [facility] Work Phone: Urea nitrogen/Creatinine [Mass ratio] 10.6 mg/mg 10-20 [facility] Work Phone: Laboratory - Hematology and Cell countson 12-02-2021 Erythrocyte distribution width (RBC) [Entitic vol] 41.9 fL 35.1-43.9 [facility] Work Phone: Erythrocyte distribution width (RBC) [Ratio] 13.4 % 11.6-14.6 [facility] Work Phone: MCH (RBC) [Entitic mass] 28.9 pg 27.0-32.0 [facility] Work Phone: MCHC Auto (RBC) [Mass/Vol]on 12-02-2021 MCHC (RBC) [Mass/Vol] 33.7 g/dL 32-36 [facility] Work Phone: No Panel Informationon 12-02 Estimated GFR (MDRD) Amer 38 mL/min >60 [facility] Work Phone: Comment on above: GFR Calc Estimated GFR (MDRD) Non-Af Amer 32 mL/min >60 [facility] Work Phone: Comment on above: Non- GFR Calc Thyroid Stimulating Hormone (TSH) 2.27 uIU/mL 0.358-3.74 [facility] Work Phone: Platelets bldon 12-02-2021 Platelets (Bld) [#/Vol] 226 10*3/uL 150-450 [facility] Work Phone: Serum or plasma calcium maria l urement (mass/volume)on 12-02-2021 Calcium [Mass/Vol] 8.2 mg/dL 8.5-10.1 [facility] Work Phone: Serum or plasma cholesterol in HDL measurement (mass/volume)on 12-02-2021 Cholesterol in HDL [Mass/Vol] 36 mg/dL >40 [facility] Work Phone: Comment on above: The drugs N-Acetylcy steine and Metamizole may falsely depress this assay. Reference Range HDL <40 mg/dL Low HDL Cholesterol HDL >or= 60 mg/dL High HDL Cholesterol Serum or plasma cholesterol in VLDL measurement (mass/volume)on 12-02-2021 Cholesterol in VLDL [Mass/Vol] 16 mg/dL 5-40 [facility] Work Phone: Serum or plasma creatinine m easurement (mass/volume)on 12-02-2021 Creatinine [Mass/Vol] 2.17 mg/dL 0.70-1.30 [facility] Work Phone: Comment on above: The validity of the calculated GFR & GFRAA in patients over 70 years has not been determined. Clinical correlation is essential. Serum or plasma low density lipoprotein (LDL) cholesterol measurement (mass/volume)on 12-02-2021 Cholesterol in LDL [Mass/Vol] 55 mg/dL 0-130 [facility] Work Phone: Serum or plasma urea nitroge n measurement (mass/volume)on 12-02-2021 Urea nitrogen [Mass/Vol] 23 mg/dL 7-18 [facility] Work Phone: Thin prep Papanicolaou smear with manual screeningon 12-02-2021 Thin prep Papanicolaou smear with manual screening 6 5-15 [facility] Work Phone: Whole blood hemoglobin A1c/t otal hemoglobin ratio (mass fraction)on 12-02-2021 HbA1c (Bld) [Mass fraction] 5.9 % 3.8-5.6 [facility] Work Phone: Comment on above: Normal < 5.7 % Predi abetic 5.7 - 6.4 % Diabetic >or= 6.5 % Please note range changes. Basophil percentageon 2021 Chloride [Moles/Vol] 104 mmol/L 98-107 [facility] Work Phone: Glucose [Mass/Vol] 90 mg/dL 74-106 [facility] Work Phone: Potassium [Moles/Vol] 3.6 mmol/L 3.5-5.1 [facility] Work Phone: Sodium [Moles/Vol] 139 mmol/L 136-145 [facility] Work Phone: WBC (Bld) [#/Vol] 8.2 10*3/uL 4.4-11.0 [facility] Work Phone: Blood erythrocytes count (nu mber/volume)on 11-03-2021 RBC (Bld) [#/Vol] 4.23 10*6/uL 4.6-6.2 [facility] Work Phone: Blood hemoglobin measurement (mass/volume)on 11-03-2021 Hemoglobin (Bld) [Mass/Vol] 12.5 g/dL 13.0-16.5 [facility] Work Phone: Blood platelet mean volumeon 11-03-2021 Platelet mean volume (Bld) [Entitic vol] 11.8 fL 6.2-12.0 [facility] Work Phone: Determination of erythrocyte mean corpuscular volume (MCV)on 11-03-2021 MCV (RBC) [Entitic vol] 89.4 fL 80-94 [facility] Work Phone: Hematocrit Auto (Bld) [Volum e fraction]on 11-03-2021 Hematocrit (Bld) [Volume fraction] 37.8 % 40-54 [facility] Work Phone: Laboratory - Chemistry and C hemistry - challengeon 11-03-2021 CO2 [Moles/Vol] 32.0 mmol/L 21.0-32.0 [facility] Work Phone: Urea nitrogen/Creatinine [Mass ratio] 13.6 mg/mg 10-20 [facility] Work Phone: Laboratory - Hematology and Cell countson 11-03-2021 Erythrocyte distribution width (RBC) [Entitic vol] 45.1 fL 35.1-43.9 [facility] Work Phone: Erythrocyte distribution width (RBC) [Ratio] 13.9 % 11.6-14.6 [facility] Work Phone: MCH (RBC) [Entitic mass] 29.6 pg 27.0-32.0 [facility] Work Phone: MCHC Auto (RBC) [Mass/Vol]on 11-03-2021 MCHC (RBC) [Mass/Vol] 33.1 g/dL 32-36 [facility] Work Phone: No Panel Informationon 11-03 Estimated GFR (MDRD) Amer 90 mL/min >60 [facility] Work Phone: Comment on above: GFR Calc Estimated GFR (MDRD) Non-Af Amer 75 mL/min >60 [facility] Work Phone: Comment on above: Non- GFR Calc Platelets bldon 11-03-2021 Platelets (Bld) [#/Vol] 227 10*3/uL 150-450 [facility] Work Phone: Serum or plasma calcium maria l urement (mass/volume)on 11-03-2021 Calcium [Mass/Vol] 8.3 mg/dL 8.5-10.1 [facility] Work Phone: Serum or plasma creatinine m easurement (mass/volume)on 11-03-2021 Creatinine [Mass/Vol] 1.03 mg/dL 0.70-1.30 [facility] Work Phone: Comment on above: The validity of the calculated GFR & GFRAA in patients over 70 years has not been determined. Clinical correlation is essential. Serum or plasma urea nitroge n measurement (mass/volume)on 11-03-2021 Urea nitrogen [Mass/Vol] 14 mg/dL 7-18 [facility] Work Phone: Thin prep Papanicolaou smear with manual screeningon 11-03-2021 Thin prep Papanicolaou smear with manual screening 3 5-15 [facility] Work Phone: Basophil percentageon 2021 Chloride [Moles/Vol] 105 mmol/L 98-107 [facility] Work Phone: Glucose [Mass/Vol] 60 mg/dL 74-106 [facility] Work Phone: Potassium [Moles/Vol] 3.4 mmol/L 3.5-5.1 [facility] Work Phone: Sodium [Moles/Vol] 137 mmol/L 136-145 [facility] Work Phone: WBC (Bld) [#/Vol] 7.6 10*3/uL 4.4-11.0 [facility] Work Phone: Blood erythrocytes count (nu mber/volume)on 10-06-2021 RBC (Bld) [#/Vol] 4.11 10*6/uL 4.6-6.2 [facility] Work Phone: Blood hemoglobin measurement (mass/volume)on 10-06-2021 Hemoglobin (Bld) [Mass/Vol] 12.1 g/dL 13.0-16.5 [facility] Work Phone: Blood platelet mean volumeon 10-06-2021 Platelet mean volume (Bld) [Entitic vol] 11.6 fL 6.2-12.0 [facility] Work Phone: Determination of erythrocyte mean corpuscular volume (MCV)on 10-06-2021 MCV (RBC) [Entitic vol] 88.3 fL 80-94 [facility] Work Phone: Hematocrit Auto (Bld) [Volum e fraction]on 10-06-2021 Hematocrit (Bld) [Volume fraction] 36.3 % 40-54 [facility] Work Phone: Laboratory - Chemistry and C hemistry - challengeon 10-06-2021 CO2 [Moles/Vol] 31.0 mmol/L 21.0-32.0 [facility] Work Phone: Urea nitrogen/Creatinine [Mass ratio] 11.7 mg/mg 10-20 [facility] Work Phone: Laboratory - Hematology and Cell countson 10-06-2021 Erythrocyte distribution width (RBC) [Entitic vol] 45.5 fL 35.1-43.9 [facility] Work Phone: Erythrocyte distribution width (RBC) [Ratio] 14.1 % 11.6-14.6 [facility] Work Phone: MCH (RBC) [Entitic mass] 29.4 pg 27.0-32.0 [facility] Work Phone: MCHC Auto (RBC) [Mass/Vol]on 10-06-2021 MCHC (RBC) [Mass/Vol] 33.3 g/dL 32-36 [facility] Work Phone: No Panel Informationon 10-06 Estimated GFR (MDRD) Amer 90 mL/min >60 [facility] Work Phone: Comment on above: GFR Calc Estimated GFR (MDRD) Non-Af Amer 75 mL/min >60 [facility] Work Phone: Comment on above: Non- GFR Calc Platelets bldon 10-06-2021 Platelets (Bld) [#/Vol] 242 10*3/uL 150-450 [facility] Work Phone: Serum or plasma calcium maria l urement (mass/volume)on 10-06-2021 Calcium [Mass/Vol] 8.5 mg/dL 8.5-10.1 [facility] Work Phone: Serum or plasma creatinine m easurement (mass/volume)on 10-06-2021 Creatinine [Mass/Vol] 1.03 mg/dL 0.70-1.30 [facility] Work Phone: Comment on above: The validity of the calculated GFR & GFRAA in patients over 70 years has not been determined. Clinical correlation is essential. Serum or plasma urea nitroge n measurement (mass/volume)on 10-06-2021 Urea nitrogen [Mass/Vol] 12 mg/dL 7-18 [facility] Work Phone: Thin prep Papanicolaou smear with manual screeningon 10-06-2021 Thin prep Papanicolaou smear with manual screening 1 5-15 [facility] Work Phone: Basophil percentageon 2021 Chloride [Moles/Vol] 101 mmol/L 98-[address] [facility] Work Phone: Glucose [Mass/Vol] 75 mg/dL 74-106 [facility] Work Phone: Potassium [Moles/Vol] 3.5 mmol/L 3.5-5.1 [facility] Work Phone: Sodium [Moles/Vol] 135 mmol/L 136-145 [facility] Work Phone: WBC (Bld) [#/Vol] 8.4 10*3/uL 4.4-11.0 [facility] Work Phone: Blood erythrocytes count (nu mber/volume)on 09-03-2021 RBC (Bld) [#/Vol] 3.92 10*6/uL 4.6-6.2 [facility]: Blood hemoglobin measurement (mass/volume)on 09-03-2021 Hemoglobin (Bld) [Mass/Vol] 11.5 g/dL 13.0-16.5 [facility] Work Phone: Blood platelet mean volumeon 09-03-2021 Platelet mean volume (Bld) [Entitic vol] 12.1 fL 6.2-12.0 [facility] Work Phone: Determination of erythrocyte mean corpuscular volume (MCV)on 09-03-2021 MCV (RBC) [Entitic vol] 89.3 fL 80-94 [facility] Work Phone: Hematocrit Auto (Bld) [Volum e fraction]on 09-03-2021 Hematocrit (Bld) [Volume fraction] 35.0 % 40-54 [facility] Work Phone: Laboratory - Chemistry and C hemistry - challengeon 09-03-2021 CO2 [Moles/Vol] 30.0 mmol/L 21.0-32.0 [facility] Work Phone: Urea nitrogen/Creatinine [Mass ratio] 11.7 mg/mg 10-20 [facility] Work Phone: Laboratory - Hematology and Cell countson 09-03-2021 Erythrocyte distribution width (RBC) [Entitic vol] 44.5 fL 35.1-43.9 [facility] Work Phone: Erythrocyte distribution width (RBC) [Ratio] 13.7 % 11.6-14.6 [facility] Work Phone: MCH (RBC) [Entitic mass] 29.3 pg 27.0-32.0 [facility] Work Phone: MCHC Auto (RBC) [Mass/Vol]on 09-03-2021 MCHC (RBC) [Mass/Vol] 32.9 g/dL 32-36 [facility] Work Phone: No Panel Informationon 09-03 Estimated GFR (MDRD) Amer 83 mL/min >60 [facility] Work Phone: Comment on above: GFR Calc Estimated GFR (MDRD) Non-Af Amer 69 mL/min >60 [facility] Work Phone: Comment on above: Non- GFR Calc Platelets bldon 09-03-2021 Platelets (Bld) [#/Vol] 213 10*3/uL 150-450 [facility] Work Phone: Serum or plasma calcium maria l urement (mass/volume)on 09-03-2021 Calcium [Mass/Vol] 8.2 mg/dL 8.5-10.1 [facility] Work Phone: Serum or plasma creatinine m easurement (mass/volume)on 09-03-2021 Creatinine [Mass/Vol] 1.11 mg/dL 0.70-1.30 [facility] Work Phone: Comment on above: The validity of the calculated GFR & GFRAA in patients over 70 years has not been determined. Clinical correlation is essential. Serum or plasma urea nitroge n measurement (mass/volume)on 09-03-2021 Urea nitrogen [Mass/Vol] 13 mg/dL 7-18 [facility] Work Phone: Thin prep Papanicolaou smear with manual screeningon 09-03-2021 Thin prep Papanicolaou smear with manual screening 4 5-15 [facility] Work Phone: Basophil percentageon 2020 Chloride [Moles/Vol] 102 mmol/L 98-107 [facility] Work Phone: Glucose [Mass/Vol] 80 mg/dL 74-106 [facility] Work Phone: Comment on above: Please note revised GLUCOSE reference range effective 2017. Potassium [Moles/Vol] 3.6 mmol/L 3.5-5.1 [facility] Work Phone: Sodium [Moles/Vol] 137 mmol/L 136-145 [facility] Work Phone: Laboratory - Chemistry and C hemistry - challengeon 08-04-2021 CO2 [Moles/Vol] 30.0 mmol/L 21.0-32.0 [facility] Work Phone: Urea nitrogen/Creatinine [Mass ratio] 8.3 mg/mg 10-20 [facility] Work Phone: No Panel Informationon 08-04 Estimated GFR (MDRD) Amer 76 mL/min >60 [facility] Work Phone: Comment on above: GFR Calc Estimated GFR (MDRD) Non-Af Amer 63 mL/min >60 [facility] Work Phone: Comment on above: Non- GFR Calc Serum or plasma calcium maria l urement (mass/volume)on 08-04-2021 Calcium [Mass/Vol] 8.5 mg/dL 8.5-10.1 [facility] Work Phone: Serum or plasma creatinine m easurement (mass/volume)on 08-04-2021 Creatinine [Mass/Vol] 1.20 mg/dL 0.70-1.30 [facility] Work Phone: Comment on above: The validity of the calculated GFR & GFRAA in patients over 70 years has not been determined. Clinical correlation is essential. Serum or plasma urea nitroge n measurement (mass/volume)on 08-04-2021 Urea nitrogen [Mass/Vol] 10 mg/dL 7-18 [facility] Work Phone: Thin prep Papanicolaou smear with manual screeningon 08-04-2021 Thin prep Papanicolaou smear with manual screening 5 5-15 [facility] Work Phone: Basophil percentageon 2020 Chloride [Moles/Vol] 103 mmol/L 98-107 [facility] Work Phone: Glucose [Mass/Vol] 116 mg/dL 74-106 [facility] Work Phone: Comment on above: Fasting Glucose resu lt from 100 to 125 mg/dL suggests IMPAIRED HOMEOSTASIS per A.D.A. criteria.Please note revised GLUCOSE reference range effective 2017. Potassium [Moles/Vol] 3.7 mmol/L 3.5-5.1 [facility] Work Phone: Sodium [Moles/Vol] 138 mmol/L 136-145 [facility] Work Phone: WBC (Bld) [#/Vol] 9.8 10*3/uL 4.4-11.0 [facility] Work Phone: Blood erythrocytes count (nu mber/volume)on 07-29-2021 RBC (Bld) [#/Vol] 3.78 10*6/uL 4.6-6.2 [facility] Work Phone: Blood hemoglobin measurement (mass/volume)on 07-29-2021 Hemoglobin (Bld) [Mass/Vol] 11.1 g/dL 13.0-16.5 [facility] Work Phone: Blood platelet mean volumeon 07-29-2021 Platelet mean volume (Bld) [Entitic vol] 11.6 fL 6.2-12.0 [facility] Work Phone: Determination of erythrocyte mean corpuscular volume (MCV)on 07-29-2021 MCV (RBC) [Entitic vol] 90.5 fL 80-94 [facility] Work Phone: Hematocrit Auto (Bld) [Volum e fraction]on 07-29-2021 Hematocrit (Bld) [Volume fraction] 34.2 % 40-54 [facility] Work Phone: Laboratory - Chemistry and C hemistry - challengeon 07-29-2021 CO2 [Moles/Vol] 30.0 mmol/L 21.0-32.0 [facility] Work Phone: Urea nitrogen/Creatinine [Mass ratio] 11.1 mg/mg 10-20 [facility] Work Phone: Laboratory - Hematology and Cell countson 07-29-2021 Erythrocyte distribution width (RBC) [Entitic vol] 47.4 fL 35.1-43.9 [facility] Work Phone: Erythrocyte distribution width (RBC) [Ratio] 14.2 % 11.6-14.6 [facility] Work Phone: MCH (RBC) [Entitic mass] 29.4 pg 27.0-32.0 [facility] Work Phone: MCHC Auto (RBC) [Mass/Vol]on 07-29-2021 MCHC (RBC) [Mass/Vol] 32.5 g/dL 32-36 [facility] Work Phone: No Panel Informationon 07-29 Estimated GFR (MDRD) Amer 78 mL/min >60 [facility] Work Phone: Comment on above: GFR Calc Estimated GFR (MDRD) Non-Af Amer 64 mL/min >60 [facility] Work Phone: Comment on above: Non- GFR Calc Platelets bldon 07-29-2021 Platelets (Bld) [#/Vol] 221 10*3/uL 150-450 [facility] Work Phone: Serum or plasma calcium maria l urement (mass/volume)on 07-29-2021 Calcium [Mass/Vol] 8.1 mg/dL 8.5-10.1 [facility] Work Phone: Serum or plasma creatinine m easurement (mass/volume)on 07-29-2021 Creatinine [Mass/Vol] 1.17 mg/dL 0.70-1.30 [facility] Work Phone: Comment on above: The validity of the calculated GFR & GFRAA in patients over 70 years has not been determined. Clinical correlation is essential. Serum or plasma urea nitroge n measurement (mass/volume)on 07-29-2021 Urea nitrogen [Mass/Vol] 13 mg/dL 7-18 [facility] Work Phone: Thin prep Papanicolaou smear with manual screeningon 07-29-2021 Thin prep Papanicolaou smear with manual screening 5 5-15 [facility] Work Phone: Culture, urine Bacteria identified Cx Nom (U) Proteus mirabilis [facility] Work Phone: Bacteria identified Cx Nom (U) Enterococcus faecalis [facility] Work Phone: Vital Signs Date Time Vital Sign Value Performing Clinician Garfield enriquez 06-02-2022 09:00-0400 Body height 167.6 cm Jordan Jordan Jr., MD Work Phone: [facility] 06-02-2022 09:00-0400 Body weight 98.97 kg Jordan Jordan Jr., MD Work Phone: [facility] 04-11-2022 06:57-0400 Diastolic blood pressure 74 mm[Hg] [facility] Work Phone: 04-11-2022 06:57-0400 Heart rate 64 /min [facility] Work Phone: 04-11-2022 06:57-0400 Respiratory rate 18 /min [facility] Work Phone: 04-11-2022 06:57-0400 Systolic blood pressure 159 mm[Hg] [facility] Work Phone: 04-11-2022 05:03-0400 SaO2% (BldA) [Mass fraction] 94 % [facility] Work Phone: 04-10-2022 19:37-0400 Body temperature 98.7 [degF] [facility] Work Phone: 04-10-2022 16:33-0400 Body height 167.64 cm [facility] Work Phone: 04-10-2022 16:33-0400 Body mass index (BMI) [Ratio] 35.4 kg/m2 [facility] Work Phone: 04-10-2022 16:33-0400 Body weight 99.4 kg [facility] Work Phone: 04-10-2022 09:00-0400 Body height 167.6 cm Ousmane Durand MD Work Phone: [facility] 04-10-2022 09:00-0400 Body weight 95.98 kg Ousmane Durand MD Work Phone: [facility] Encounters Encounter Date Encounter Type Care Provider Facility Start: 05-04-2025 ambulatory Aura Sky OLS Facil ity:[facility] Start: 04-05-2025 ambulatory Aura Sky OLS Facil ity:[facility] Start: 04-03-2025 ambulatory Aura Sky OLS Facil ity:[facility] Start: 03-05-2025 ambulatory Aura Sky Facility: [facility] Start: 02-01-2025 ambulatory Aura Sky Facility: [facility] Start: 02-01-2025 Registered Referred Aura Sky MD - [facility] Start: 01-02-2025 End: 01-02-[address] Aura Sky MD Work Phone: [facility] Start: 01-02-2025 End: 01-02-2025 Departed Referred Aura Sky MD -[facility] Start: 01-02-2025 End: 01-02-2025 ambulatory Aura Sky Facility:[facility] Start: 12-08-2024 End: 12-08-[address] Aura Sky MD Work Phone: [facility] Work Phone: Start: 12-08-2024 End: 12-08-2024 [facility] Start: 12-08-2024 End: 12-08-2024 ambulatory Aura Sky Facility:[facility] Start: 11-30-2024 End: 11-30-2024 [facility] 11-30-[facility] Registered Referred Aura Sky MD [facility] Start: 11-30-2024 End: 11-30-2024 ambulatory Aura Sky OLS Facility:[facility] Start: 11-01-2024 End: 11-01-[address] Aura Sky MD Work Phone: [facility] Work Phone: Start: 11-01-2024 End: 11-01-2024 Departed Referred [facility] Start: 11-01-2024 End: 11-01-2024 ambulatory Aura Sky OLS Facility:[facility] Start: 10-03-2024 ambulatory Aura Sky OLS Facil ity:[facility] Start: 10-03-2024 Registered Referred Aura Sky MD [facility] Start: 09-04-2024 ambulatory Aura Sky OLS Facil ity:[facility] Start: 09-04-2024 Registered Referred Aura Sky MD [facility] Start: 08-03-2024 End: 08-03-2024 Departed Referred Aura CrespoRenato [facility] Start: 08-03-2024 End: 08-03-2024 ambulatory Aura Sky OLS Facility:[facility] Start: 07-03-2024 End: 07-03-2024 ambulatory Aura Sky OLS Facility:[facility] Start: 06-05-2024 End: 06-05-2024 ambulatory Aura CORONADO Facility:[facility] Start: 06-02-2024 End: 06-02-2024 ambulatory Aura Sky OLS Facility:[facility] Start: 11-02-2023 End: 11-02-2023 ambulatory [facility] Work Phone: Start: 11-02-2023 End: 11-02-2023 Departed Referred [facility] Start: 10-27-2023 End: 10-27-2023 ambulatory [facility] Work Phone: Start: 10-27-2023 End: 10-27-2023 Departed Referred [facility] Start: 09-29-2023 End: 09-29-2023 ambulatory [facility] Work Phone: Start: 09-29-2023 End: 09-29-2023 Departed Referred [facility] Start: 09-03-2023 End: 09-03-2023 ambulatory [facility] Work Phone: Start: 09-03-2023 End: 09-03-2023 Departed Referred [facility] Start: 06-03-2023 End: 06-03-2023 ambulatory [facility] Work Phone: Start: 06-03-2023 End: 06-03-2023 Departed Referred [facility] Start: 03-03-2023 End: 03-03-2023 ambulatory [facility] Work Phone: Start: 03-03-2023 End: 03-03-2023 Departed Referred [facility] Start: 01-01-2023 End: 01-01-2023 Departed Referred [facility] Start: 12-02-2022 End: 12-02-2022 ambulatory [facility] Work Phone: Start: 12-02-2022 End: 12-02-2022 Departed Referred [facility] Start: 11-02-2022 End: 11-02-2022 ambulatory [facility] Work Phone: Start: 11-02-2022 End: 11-02-2022 Departed Referred [facility] Start: 11-02-2022 Registered Referred [facility] Start: 10-07-2022 End: 10-07-2022 ambulatory [facility] Work Phone: Start: 10-07-2022 End: 10-07-2022 Departed Referred [facility] Start: 10-05-2022 End: 10-05-2022 Departed Referred [facility] Start: 09-03-2022 End: 09-03-2022 ambulatory [facility] Work Phone: Start: 09-03-2022 End: 09-03-2022 Departed Referred [facility] Start: 08-04-2022 End: 08-04-2022 ambulatory [facility] Work Phone: Start: 08-04-2022 End: 08-04-2022 Departed Referred [facility] Start: 08-04-2022 Registered Referred [facility] Start: 07-06-2022 End: 07-06-2022 ambulatory [facility] Work Phone: Start: 07-06-2022 End: 07-06-2022 Departed Referred [facility] Start: 06-02-2022 End: 06-02-2022 Patient encounter procedure Jordan Jordan MD Work Phone: Urology Comment on above: Urinary retention (P rimary Dx) Start: 06-02-2022 End: 06-02-2022 ambulatory JORDAN JORDAN JR Facility:[facility] Start: 06-02-2022 End: 06-02-2022 Departed Referred [facility] Start: 05-04-2022 End: 05-04-2022 ambulatory [facility] Work Phone: Start: 05-04-2022 End: 05-04-2022 Departed Referred [facility] Start: 04-10-2022 End: 04-11-2022 Emergency department patient visit [facility] Start: 04-10-2022 End: 04-10-2022 ambulatory [facility] Facility:[facility] Start: 04-10-2022 End: 04-10-2022 Patient encounter procedure Ousmane Durand MD Work Phone: Urology Comment on above: Urine retention (Dodie antonino Dx); Benign prostatic hyperplasia with urinary retention Start: 04-03-2022 End: 04-03-2022 ambulatory [facility] Work Phone: Start: 04-03-2022 End: 04-03-2022 Departed Referred [facility] Start: 03-03-2022 Registered Referred [facility] Start: 02-02-2022 End: 02-02-2022 Departed Referred [facility] Start: 01-02-2022 End: 01-02-2022 Departed Referred [facility] Start: 12-17-2021 End: 12-17-2021 Departed Referred [facility] Start: 12-02-2021 End: 12-02-2021 Departed Referred [facility] Start: 12-02-2021 Registered Referred [facility] Start: 11-03-2021 End: 11-03-2021 Departed Referred [facility] Start: 11-03-2021 Registered Referred [facility] Start: 10-06-2021 End: 10-06-2021 Departed Referred [facility] Start: 10-06-2021 Registered Referred [facility] Start: 09-03-2021 End: 09-03-2021 Departed Referred [facility] Start: 08-04-2021 Registered Referred [facility] Start: 07-29-2021 Registered Referred [facility] Procedures Date Procedure Procedure Detail Performing Clinician Start: 12-08-2024 Measurement of occul t blood in stool specimen using immunoassay Dr. Aura Sky MD Work Phone: Start: 09-04-2024 Measurement of renal function Dr. Aura Sky MD Work Phone: Comment on above: GFR Calc Start: 02-21-2016 Adult depression screening assessment Ousmane Durand MD Work Phone: Urine culture Viral antigen assay Plan of Treatment Date Care Activity Detail Author Start: 10-09-2025 Urine microalbumin profile DTAP,TDAP,TD (2 - Td or Tdap) [facility] Start: 04-09-2022 Influenza vaccination INFLUENZA (#1) [facility] Start: 09-20-2021 COVID-19 VACCINE (4 - Booster for Pfizer series) COVID-19 VACCINE (4 - Booster for Pfizer series) [facility] Start: 08-09-2021 ADVANCE DIRECTIVE DISCUSSION ADVANCE DIRECTIVE DISCUSSION [facility] Start: 08-09-2021 DEPRESSION ASSESSMENT DEPRESSION ASS ESSMENT [facility] Start: 07-15-2021 COVID-19 VACCINE (4 - Booster for Pfizer series) COVID-19 VACCINE (4 - Booster for Pfizer series) [facility] Start: 02-20-2017 Adult depression screening assessment DEPRESSION SCREENING [facility] Start: 10-03-2016 Hepatitis B screening URINE ALBUMIN:CREATININE RATIO [facility] Start: 10-03-2016 Hepatitis B surface antibody level LDL CHOLESTEROL [facility] Start: 06-19-2016 Hemoglobin A1c/Hemoglobin.total in Blood HBA1C [facility] Start: 06-12-2016 3 comp foot exam completed DIABETIC FOOT EXAM [facility] Start: 06-12-2016 PNEUMOCOCCAL: 65+ (2 - PPSV23 if available, else PCV20) PNEUMOCOCCAL: 65+ (2 - PPSV23 if available, else PCV20) [facility] Start: 06-12-2016 PNEUMOCOCCAL: 65+ (2 - PPSV23 or PCV20) PNEUMOCOCCAL: 65+ (2 - PPSV23 or PCV20) [facility] Start: 1995 SHINGRIX VACCINE (1 of 2) SHINGRIX VACCINE (1 of 2) [facility] Start: 1963 ANNUAL PCP TEAM METAL RECLAMATION KETTLE TENDER SAVANNA DISEASE VISIT ANNUAL PCP TEAM CHRONIC DISEASE VISIT [facility] Start: 1963 BP CONTROLLED (<130/80) BP CONTROLLE D (<130/80) [facility] Start: 1963 HEPATITIS C SCREENING HEPATITIS C GRAZYNA BAEZA [facility] Start: 1955 Hepatitis C antibody , confirmatory test DILATED RETINAL EXAM [facility] Patient referral [facility] Work Phone: Immunizations Immunization Date Immunization Notes Care Provider Fa cili 07-08-2020 tetanus toxoid, reduced diphtheria toxoid, and acellular pertussis vaccine, adsorbed [facility] 10-10-2015 tetanus toxoid, reduced diphtheria toxoid, and acellular pertussis vaccine, adsorbed Ousmane Durand MD Work Phone: [facility] Work Phone: 06-12-2015 influenza, injectable, quadrivalent, contains preservative Ousmane Durand MD Work Phone: [facility] Work Phone: 06-12-2015 pneumococcal conjugate vaccine, 13 valent Ousmane Durand MD Work Phone: [facility] Work Phone: Payers Date Payer Category Payer Self-pay [id number] 2024 [facility] [id number] 2014 Medicaid [facility] MEDICAID MYC ARE [facility] MEDICAID [id number] 2014-Present [phone] [address] [place] [address] Medicaid [id number] 2014 Medicare [facility] MEDICARE MYC ARE [facility] MEDICARE [id number] 2014-Present [phone] [address] [place] [address] Medicare [id number] 2014 Unknown [id number] Unknown [id number] Unknown [id number] Unknown [id number] Unknown [id number] Unknown [id number] Unknown [id number] Unknown [id number] Unknown [id number] Unknown [id number] Unknown [id number] Unknown [id number] Unknown [id number] Unknown [id number] Unknown [id number] Social History Date Type Detail Facility Start: 08-03-2020 End: 04-10-2022 Tobacco smoking status VAIS Unknown if ever smoked [facility] Start: 08-03-2020 None [facility] Start: 08-03-2020 - [facility] Start: 12-18-2015 Non-smoker [facility] Start: 1945 Sex Assigned At Male [facility] Start: 02-26-2016 End: 04-10-2022 Tobacco smoking status NHIS Never smoked tobacco [facility] Start: 02-26-2016 Tobacco use and exposure Smokeless tobacco non-user [facility] Start: 04-10-2022 End: 06-02-2022 Alcohol intake Current non-drinker of alcohol (finding) [facility] Start: 1945 Sex Assigned At Not on file [facility] Start: 03-31-2022 End: 06-02-2022 Exposure to SARS-CoV-2 (event) Not sure [facility] Start: 11-23-2024 Sex Male (finding) [facility] Medical Equipment Procedure Code Equipment Code Equipment Origin al Text Equipment Identifier Dates Start: 12-23-2015 Comment on above: Check blood sugars o nce a day. Check blood sugar on ce daily. Dx: E11.40. Mental Status Date Assessment Result Facility 04-10-2022 Cognitive function Level Of Cons ciousness Awake;Alert;Inappropriate;Rest less [facility] Work Phone: Progress note 06-02-2022 Note Date & Type Note Facility 06-02-2022 Note HNO ID: [id number] Author: Jordan Jordan Jr., MD Service: ? Author Type: Physician Type: Progress Notes Filed: 06/02/2022 9:14 AM Note Text: ESTABLISHED PATIENT OFFICE VISIT HPI Elaine Croea is a 76 year old male who [...] (no units) Date Value 01/09/2016 neg Specific [place], Ur (no units) Date Value 01/09/2016 1.010 [...] mouth daily at bedtime. blood sugar diagnostic (LyxiaTOUCH ULTRA TEST) test strip Check blood sugars [...] (HCC) 03/11/[address] Krause at the [facility] center Type 2 diabetes, uncontrolled, with [...] well nourished Skin: (more content not included)... [facility] History of Present illness Narrative 10-25-2022 Jordan Jordan Jr., MD - 06/02/2022 9:03 AM EDT Note Date & Type Note Facility 06-02-2022 History of Presen t illness Narrative ESTABLISHED PATIENT OFFICE VISIT HPI Elaine Corea is a 76 year old male [...] (no units) Date Value 01/09/2016 neg Specific Beaman, Ur (no units) Date Value 01/09/2016 1.010 [...] mouth daily at bedtime. blood sugar diagnostic (LyxiaTOUCH ULTRA TEST) test strip Check blood sugars once a day. Levothyroxine 50 mcg cap Take 1 capsule by mouth once daily. lisinopril (ZESTRIL, PRINIVIL) 40 mg tablet Take 1 tablet by mouth once daily. lancets (SOLUS V2 LANCETS) 28 gauge [facility] Check blood sugar once daily. Dx: E11.40. [...] (HCC) 03/11/[address] Krause at the [facility] center Type 2 diabetes, uncontrolled, with [...] Patient verbalized understanding and agrees to proceed. Jordan Jordan Jr, MD 06/02/2022 documented in this encounter [facility] Progress note 04-10-2022 Note Date & Type Note Facility 04-10-2022 Note HNO ID: [id number] Author: Ousmane Durand MD Service: ? Author Type: Physician Type: Progress Notes Filed: 04/10/2022 10:03 AM Note Text: [facility] UROLOGY ESTABLISHED PATIENT CLINIC NOTE PATIENT INFO: Elaine Corea 76 year old PCP: Aura Sky MD UROLOGY DIAGNOSES: 1. Urine retention - ICD9: 788.20, ICD10: R33.9 (primary diagnosis) 2. Benign prostatic hyperplasia with urinary retention - ICD9: 600.01, 788.20, ICD10: N40.1, R33.8 CHIEF COMPLAINT: Requesting SPT HPI: Elaine Corea returns for continuing evaluation and management. This is a 76-year-old male with history of BPH and chronic urinary retention who is on indwelling [place] catheter for the last 2 years. Patient lives in a fpc facility and has his catheter changed every [...] mouth daily at bedtime. blood sugar diagnostic (Lulu*s Fashion LoungeUCH ULTRA TEST) test strip Check blood sugars once a day. Levothyroxine 50 mcg cap Take 1 capsule by mouth once daily. lisinopril (ZESTRIL, PRINIVIL) 40 mg tablet Take 1 tablet by mouth once daily. amLODIPine (NORVASC) 10 mg tablet Take 1 tablet by mouth once daily. lancets (SOLUS V2 LANCETS) 28 gauge [facility] Check blood sugar once daily. Dx: E11.40. glipiZIDE (GLUCOTROL) 10 mg tablet Take 2 tablets by mouth once daily. divalproex DR (DEPAKOTE) 500 mg EC tablet Take 1,000 mg by mouth daily at bedtime. No current facility-administered medications for this visit. PHYSICAL EXAM: Ht 167.6 cm (5' 6) Wt 96 kg (211 lb 9.6 oz) [...] (primary diagnosis) - Will refer to Dr. Jordan Jordan for SPT placement 2. Benign prostatic hyperplasia with urinary retention - ICD9: 600.01, 788.20, ICD10: N40.1, R33.8 -Remain on tamsulosin Consultation requested by Dr. Aura Sky for an opinion regarding Mr. Corea. My final recommendations will be communicated back to the requesting physician by way of shared Medical record or letter to requesting physician via [place] mail. Ousmane Durand M.D, MS Associate Staff [facility] and (more content not included)... [facility] History of Present illness Narrative 04-10-2022 Ousmane Durand MD - 04/10/2022 8:58 AM EDT Note Date & Type Note Facility 04-10-2022 History of Presen t illness Narrative Images from the original note were not included. [facility] UROLOGY ESTABLISHED PATIENT CLINIC NOTE PATIENT INFO: Elaine Corea 76 year old PCP: Aura Sky MD UROLOGY DIAGNOSES: 1. Urine retention - ICD9: 788.20, ICD10: R33.9 (primary diagnosis) 2. Benign prostatic hyperplasia with urinary retention - ICD9: 600.01, 788.20, ICD10: N40.1, R33.8 CHIEF COMPLAINT: Requesting SPT HPI: Elaine Corea returns for continuing evaluation and management. This is a 76-year-old male with history of BPH and chronic urinary retention who is on indwelling [place] catheter for the last 2 years. Patient lives in a fpc facility and has his catheter changed every [...] mouth daily at bedtime. blood sugar diagnostic (ONETOUCH ULTRA TEST) test strip Check blood sugars once a day. Levothyroxine 50 mcg cap Take 1 capsule by mouth once daily. lisinopril (ZESTRIL, PRINIVIL) 40 mg tablet Take 1 tablet by mouth once daily. amLODIPine (NORVASC) 10 mg tablet Take 1 tablet by mouth once daily. lancets (SOLUS V2 LANCETS) 28 gauge [facility] Check blood sugar once daily. Dx: E11.40. glipiZIDE (GLUCOTROL) 10 mg tablet Take 2 tablets by mouth once daily. divalproex DR (DEPAKOTE) 500 mg EC tablet Take 1,000 mg by mouth daily at bedtime. No current facility-administered medications for this visit. PHYSICAL EXAM: Ht 167.6 cm (5' 6) Wt 96 kg (211 lb 9.6 oz) [...] (primary diagnosis) - Will refer to Dr. Jordan Jordan for SPT placement 2. Benign prostatic hyperplasia with urinary retention - ICD9: 600.01, 788.20, ICD10: N40.1, R33.8 -Remain on tamsulosin Consultation requested by Dr. Aura Sky for an opinion regarding Mr. Corea. My final recommendations will be communicated back to the requesting physician by way of shared Medical record or letter to requesting physician via [place] mail. Ousmane Durand M.D, MS Associate Staff [facility] [place] [facility] Cc: Dr. Aura Jordan documented in this encounter [facility] Evaluation note Note Date & Type Note Facility Evaluation note No assessment information availa ble [facility] Work Phone: Evaluation note Note Date & Type Note Facility Evaluation note Diagnosis Urine retention- Primary Retention of urine, unspecified Benign prostatic hyperplasia with urinary retention documented in this encounter [facility] Evaluation note Note Date & Type Note Facility Evaluation note Diagnosis Urinary retention- Primary Retention of urine, unspecified documented in this encounter [facility] Reason for referral (narrative) Note Date & Type Note Facility Reason for referral (narrative) No reason for referral information available [facility] Work Phone: Chief Complaint and Reason for Visit Chief Complaint LONGTERM LABWORK LONGTERM LAB WORK LONGTERM LAB WORK LONGTERM LABWORK LONGTERM LABWORK Chief Complaint LONGTERM LAB WOR K LONGTERM LABWORK LONGTERM LABWORK LONGTERM LABWORK Chief Complaint LONGTERM LAB WOR K LONGTERM LABWORK LONGTERM LABWORK LONGTERM LABWORK LONGTERM LABWORK Chief Complaint LONGTERM LABWORK LONGTERM LABWORK LONGTERM LABWORK LONGTERM LABWORK LONGTERM LABWORK Chief Complaint LONGTERM LABWORK LONGTERM LABWORK LONGTERM LABWORK LONGTERM LABWORK LABWORK Chief Complaint LONGTERM LABWORK LABWORK LONGTERM LABWORK LABOWORK general illness Chief Complaint LABWORK LONGTERM LABWORK LABOWORK general illness LONGTERM LAB WORK Chief Complaint LONGTERM LABWORK LABOWORK general illness LONGTERM LAB WORK LONGTERM LABWORK Chief Complaint LONGTERM LAB WOR K LONGTERM LABWORK LONGTERM LABWORK LABWORK Chief Complaint LONGTERM LABWORK LONGTERM LABWORK LABWORK LONGTERM LAB WORK Chief Complaint LABWORK LONGTERM LAB WORK LONGTERM LBWORK LONGTERM LAB WORK Chief Complaint LABWORK LONGTERM LAB WORK LONGTERM LBWORK LONGTERM LAB WORK LABWORK Chief Complaint LONGTERM LAB WOR K LONGTERM LBWORK LONGTERM LAB WORK LABWORK LONGTERM LAB WORK Chief Complaint LONGTERM LAB WOR K LONGTERM LABWORK LONGTERM LAB WORK Chief Complaint LONGTERM LAB WOR K LONGTERM LAB WORK Chief Complaint LONGTERM LAB WOR K LONGTERM LABWORK Chief Complaint LONGTERM LABWORK LONGTERM LAB WORK LONGTERM LAB WORK Chief Complaint LONGTERM LABWORK LONGTERM LAB WORK LONGTERM LAB WORK LONGTERM LAB WORK Chief Complaint Admit Date LONGTERM LAB WORK August 03 5:00am LONGTERM LAB WORK October 03 4:00am LABWORK November 01, 2024 5:0 0am Chief Complaint Admit Date LONGTERM LAB WORK October 03 4:00am LABWORK November 01, 2024 5:0 0am LABWORK December 08, 2024 3:41pm Chief Complaint Admit Date LABWORK November 01, 2024 5:0 0am LONGTERM LAB WORK November 30, 2024 5 :00am LABWORK December 08, 2024 3:41pm LONGTERM LAB WORK January 02, 2025 5:0 0am Family History No Family History Records Found Relationship Condition Age at Onset Recorded Date/T franco Unknown Family History?Hypertension Unknown December 18, 2015 7:43am Family History?Hypertension Unknown December 18, 2015 7:43am Family History?No pe rtinent history Unknown August 03, 2020 10:09pm Relationship Condition Age at Onset Recorded Date/T franco Unknown Family History?Hypertension Unknown December 18, 2015 6:43am Family History?Hypertension Unknown December 18, 2015 6:43am Family History?No pe rtinent history Unknown August 03, 2020 9:09pm Advance Directives No Advanced Directives Records Found Advance Directive Response Recorded Date/ Time Advance Directives No November 27 016 6:00am Living Will No August 03 10:55pm Power of Field Sales Representative No August 03, 2020 10:55pm Advance Directive Response Recorded Date/ Time Name of Medical Power of Field Sales Representative Dillon WALTERS, brother in law. April 10, 2022 4:36pm Advance Directives No November 27, 016 6:00am Living Will Yes April 10, 4:36pm Power of Field Sales Representative Yes April 10, 2022 4:36pm Advance Directive Response Recorded Date/ Time Advance Directives No November 27, 016 5:00am Living Will Yes April 10, 3:36pm Power of Field Sales Representative Yes April 10, 2022 3:36pm Advance Directive Response Recorded Date/ Time Advance Directives No November 27, 016 6:00am Living Will Yes April 10, 4:36pm Power of Field Sales Representative Yes April 10, 2022 4:36pm Advance Directive Response Recorded Date/ Time Advance Directives No November 27, 016 6:00am Summary Purpose Additional Source Comments Goals (unrecognized section and content) Goals may be documented in a n alternate sectionGoals may be documented in an alternate sectionGoals may be documented in an alternate sectionGoals may be documented in an alternate sectionGoals may be documented in an alternate sectionGoals may be documented in an alternate sectionGoals may be documented in an alternate sectionGoals may be documented in an alternate sectionGoals may be documented in an alternate sectionGoals may be documented in an alternate sectionGoals may be documented in an alternate sectionGoals may be documented in an alternate sectionGoals may be documented in an alternate sectionGoals may be documented in an alternate sectionGoals may be documented in an alternate sectionGoals may be documented in an alternate sectionGoals may be documented in an alternate sectionGoals may be documented in an alternate sectionGoals may be documented in an alternate sectionGoals may be documented in an alternate sectionGoals may be documented in an alternate sectionGoals may be documented in an alternate sectionGoals may be documented in an alternate sectionGoals may be documented in an alternate sectionGoals may be documented in an alternate section Source Comments (unrecognize d section and content) In the event this informatio n is protected by the Federal Confidentiality of Alcohol and Drug Abuse Patient Records regulations: The Federal rules restrict any use of the information to criminally investigate or prosecute any alcohol or drug abuse patient.[facility] the event this information is protected by the Federal Confidentiality of Alcohol and Drug Abuse Patient Records regulations: The Federal rules restrict any use of the information to criminally investigate or prosecute any alcohol or drug abuse patient.[facility] Reason for Visit (unrecogniz ed section and content) Reason Comments Established Patient Cath patient/interes ed in supra pubic cath Reason Comments Established Patient Discussion/SPT tube placement Care Teams (unrecognized sec tion and content) Entry Analyst Relationship Specialty Start Date End Date Aura Sky MD [address] [place] [address] PCP - General Family Practice 04/03/22 Entry Analyst Relationship Specialty Start Date End Date Aura Sky MD [address] [facility] [place] [address] PCP - General Family Medicine 04/03/22 Team Status: Active Member Role Status Dates Dr. Aura Sky MD Family Provider Active Dr. Aura Sky MD Primary Care Provider Active Team Status: Inactive Member Role Status Dates Dr. Aura Sky MD Primary Care Provider Active Aura Sky MD Attending Provider Active Team Status: Inactive Member Role Status Dates Dr. Aura Sky MD Primary Care Provider Active Aura CORONADO MD Attending Provider Active Team Status: Active Member Role Status Dates Dr. Aura Sky MD Primary Care Provider Active Aura CORONADO MD Attending Provider Active Team Status: Inactive Member Role Status Dates Dr. Aura Sky MD Primary Care Provider, Attendin g Provider Active Team Status: Inactive Member Role Status Dates Dr. Aura Sky MD Primary Care Provider Active Aura CORONADO MD Attending Provider, Referring Pr ovider Active Team Status: Inactive Member Role Status Dates Dr. Aura Sky MD Primary Care Provider Active Start: August 03, 2024 End: August 03, 2024 Aura CORONADO MD Attending Provider Active Start: August 03, 2024 End: August 03, 2024 Team Status: Active Member Role Status Dates Dr. Aura Sky MD Primary Care Provider Active Start: September 04, 2024 Aura CORONADO MD Attending Provider Active Start: September 04, 2024 Team Status: Active Member Role Status Dates Dr. Aura Sky MD Primary Care Provider Active Start: October 03, 2024 Aura CORONADO MD Attending Provider Active Start: October 03, 2024 Aura CORONADO MD Referring Provider Active Start: October 03, 2024 Team Status: Inactive Member Role Status Dates Dr. Aura Sky MD Primary Care Provider Active Start: November 01, 2024 End: November 01, 2024 Aura CORONADO MD Attending Provider Active Start: November 01, 2024 End: November 01, 2024 Team Status: Active Member Role Status Dates Dr. Aura Sky MD Primary Care Provider Active Start: November 30, 2024 Aura CORONADO MD Attending Provider Active Start: November 30, 2024 Team Status: Inactive Member Role Status Dates Dr. Aura Sky MD Primary Care Provider Active Start: December 08, 2024 End: December 08, 2024 Aura CORONADO MD Attending Provider Active Start: December 08, 2024 End: December 08, 2024 Team Status: Active Member Role/Relationship Status Dates Dr. Aura Sky MD Family Provider Active Dr. Aura Sky MD Primary Care Provider Active Team Status: Inactive Member Role/Relationship Status Dates Dr. Aura Sky MD Primary Care Provider Active Start: November 01, 2024 End: November 01, 2024 Aura CORONADO MD Attending Provider Active Start: November 01, 2024 End: November 01, 2024 Team Status: Inactive Member Role/Relationship Status Dates Dr. Aura Sky MD Primary Care Provider Active Start: November 30, 2024 End: November 30, 2024 Aura CORONADO MD Attending Provider Active Start: November 30, 2024 End: November 30, 2024 Team Status: Inactive Member Role/Relationship Status Dates Dr. Aura kSy MD Primary Care Provider Active Start: December 08, 2024 End: December 08, 2024 Aura CORONADO MD Attending Provider Active Start: December 08, 2024 End: December 08, 2024 Team Status: Inactive Member Role/Relationship Status Dates Dr. Aura Sky MD Primary Care Provider Active Start: January 02, 2025 End: January 02, 2025 Aura CORONADO MD Attending Provider Active Start: January 02, 2025 End: January 02, 2025 Team Status: Active Member Role/Relationship Status Dates Dr. Aura Sky MD Primary Care Provider Active Start: February 01, 2025 Aura CORONADO MD Attending Provider Active Start: February 01, 2025 (unrecognized sect ion and content) No Status Records FoundNo Status Records Found INFORMATION SOURCE (unrecogn ized section and content) DATE CREATED AUTHOR 06/03/2022 [facility] DATE CREATED AUTHOR AUTHOR'S LANE PU[facility]E 05/26/2025 [facility] FOR RECORDS PERTAINING TO PATIENTS WHO ARE [...] BE BASED ON THE PRIMARY CLINICAL RECORDS. [employer] provides no warranty or guarantee of the accuracy or completeness of information in this document.
--- OUTSIDE RECORDS SUMMARY | 2025-06-04 03:34 | XMS RPT_ITS | CCD ---
Author Organization [facility] Care Team Providers Care Single Pointed Operator Name Role Phone Aura Sky MD Primary [...] (20 sources) hydroCHLOROthiazide Drug Allergy 08-03-20 Unknown [facility] (20 sources) Triamterene Drug Allergy 08-03-20 Unknown [facility] (3 sources) hydroCHLOROthiazide / Triamterene; Translations: [TRIAMTERENE-HYDROCHLO ROTHIAZID] Drug Allergy 04-17-20 16 Other: See Comments [facility] Work Phone: (1 source) hydroCHLOROthiazide Drug Allergy 04-10-20 [facility] Repository (1 source) Triamterene Drug Allergy 04-10-20 [facility] Repository Medications Current Medications Medication Drug Class(es) [...] 04, 2020 12:13am take 1 [facility] eight hours as needed hydrOXYzine [...] by mouth twice daily. polyethylene glycol 3350 32700 mg powder for oral solution (20 sources) [...] Start: 07-31-2016 take 2 tablets by mo [facility] at bedtime SEROQUEL XR 50 mg Tb24 [...] tablet by marii th once daily. sennosides, half-way 8.6 mg oral tablet (20 sources) Start: 0 Sennosides 1 TABLET tablet Active 2 {tbl} PO AT BEDTIME July 08, 2020 1:00am stool softener Start: 07-08-2020 take 2 tablets by mo [facility] at bedtime Sennosides Active 2 TABLET PO AT BEDTIME July 08, 2020 1:00am Start: 07-08-2020 take 2 tablets by mo [facility] once daily Sennosides Active 2 TABLET PO [...] 07-10-2020 Episodic Other aftercare (2 sources) Other snf (current) drug therapy; Translations: [Other snf (current) drug therapy] Onset: 02-03-2025 Episodic Other [...] width (RBC) [Ratio] 16.5 % High 11.6-14.6 [facility] Comment on above: Order Comment: 114.1 Performed By: #### L [id number], L500.4100, L503.0105, [id number] #### [facility] [address] [place], [address] Hematocrit (Bld) [Volume fraction] 25.8 % Low 40-54 [facility] Comment on above: Order Comment: 114.1 Performed By: #### L [id number], L500.4100, L503.0105, [id number] #### [facility] [address] [place], [address] Hemoglobin (Bld) [Mass/Vol] 8.4 g/dL Low 13.0-16.5 [facility] Comment on above: Order Comment: 114.1 Performed By: #### L [id number], L500.4100, L503.0105, [id number] #### [facility] [address] [place], [address] MCH (RBC) [Entitic mass] 29.1 pg Normal 27.0-32.0 [facility] Comment on above: Order Comment: 114.1 Performed By: #### L [id number], L500.4100, L503.0105, [id number] #### [facility] [address] [place], [address] MCHC (RBC) [Mass/Vol] 32.6 g/dL Normal 32-36 [facility] Comment on above: Order Comment: 114.1 Performed By: #### L [id number], L500.4100, L503.0105, [id number] #### [facility] [address] [place], [address] MCV (RBC) [Entitic vol] 89.3 fL Normal 80-94 [facility] Comment on above: Order Comment: 114.1 Performed By: #### L [id number], L500.4100, L503.0105, [id number] #### [facility] [address] [place], [address] Platelet mean volume (Bld) [Entitic vol] 10.6 fL Normal 6.2-12.0 [facility] Comment on above: Order Comment: 114.1 Performed By: #### L [id number], L500.4100, L503.0105, [id number] #### [facility] [address] [place], [address] Platelets (Bld) [#/Vol] 277 10*3/uL Normal 150-450 [facility] Comment on above: Order Comment: 114.1 Performed By: #### L [id number], L500.4100, L503.0105, [id number] #### [facility] [address] [place], [address] RBC (Bld) [#/Vol] 2.89 10*6/uL Low 4.6-6.2 [facility] Comment on above: Order Comment: 114.1 Performed By: #### L [id number], L500.4100, L503.0105, [id number] #### [facility] [address] [place], [address] RDW SD 53.7 fl High 35.1-43.9 [facility] Comment on above: Order Comment: 114.1 Performed By: #### L [id number], L500.4100, L503.0105, [id number] #### [facility] [address] [place], [address] WBC (Bld) [#/Vol] 5.2 10*3/uL Normal 4.4-11.0 [facility] Comment on above: Order Comment: 114.1 Performed By: #### L [id number], L500.4100, L503.0105, [id number] #### [facility] [address] [place], [address] Ferritinon 05-04-2025 Ferritin [Mass/Vol] 30 ng/mL Low 37-417 [facility] Comment on above: Order Comment: 114.1 Performed By: #### L [id number], L500.4100, L503.0105, [id number] #### [facility] [address] [place], [address] Iron+Iron Binding Capacityon 05-04-2025 TIBC 168 ug/dL Low 250-450 [facility] Comment on above: Order Comment: 114.1 Performed By: #### L [id number], L500.4100, L503.0105, [id number] #### [facility] [address] [place], [address] Urine Cultureon 04-09-2025 [facility] Pending Escherichia coli Osco Count >100,000 Enterococcus faecalis Enterococcus faecalis Escherichia [...] R Vancomycin Islt SHIRA 2 S Normal [facility] Comment on above: Performed By: #### L [id number], L500.4100, L503.0105, [id number] #### [facility] [address] [place], [address] CBC-Complete Blood Cnt No Di ffon 04-03-2025 Erythrocyte distribution width (RBC) [Ratio] 16.4 % High 11.6-14.6 [facility] Comment on above: Order Comment: 114.1 Performed By: #### L [id number], L500.4100, L503.0105, [id number] #### [facility] [address] [place], [address] Hematocrit (Bld) [Volume fraction] 25.7 % Low 40-54 [facility] Comment on above: Order Comment: 114.1 Performed By: #### L [id number], L500.4100, L503.0105, [id number] #### [facility] [address] [place], [address] Hemoglobin (Bld) [Mass/Vol] 8.2 g/dL Low 13.0-16.5 [facility] Comment on above: Order Comment: 114.1 Performed By: #### L [id number], L500.4100, L503.0105, [id number] #### [facility] [address] [place], [address] MCH (RBC) [Entitic mass] 27.9 pg Normal 27.0-32.0 [facility] Comment on above: Order Comment: 114.1 Performed By: #### L [id number], L500.4100, L503.0105, [id number] #### [facility] [address] [place], [address] MCHC (RBC) [Mass/Vol] 31.9 g/dL Low 32-36 [facility] Comment on above: Order Comment: 114.1 Performed By: #### L [id number], L500.4100, L503.0105, [id number] #### [facility] [address] [place], [address] MCV (RBC) [Entitic vol] 87.4 fL Normal 80-[address] [facility] Comment on above: Order Comment: 114.1 Performed By: #### L [id number], L500.4100, L503.0105, [id number] #### [facility] [address] [place], [address] Platelet mean volume (Bld) [Entitic vol] 10.4 fL Normal 6.2-12.0 [facility] Comment on above: Order Comment: 114.1 Performed By: #### L [id number], L500.4100, L503.0105, [id number] #### [facility] [address] [place], [address] Platelets (Bld) [#/Vol] 276 10*3/uL Normal 150-450 [facility] Comment on above: Order Comment: 114.1 Performed By: #### L [id number], L500.4100, L503.0105, [id number] #### [facility] [address] [place], [address] RBC (Bld) [#/Vol] 2.94 10*6/uL Low 4.6-6.2 [facility] Comment on above: Order Comment: 114.1 Performed By: #### L [id number], L500.4100, L503.0105, [id number] #### [facility] [address] [place], [address] RDW SD 52.5 fl High 35.1-43.9 [facility] Comment on above: Order Comment: 114.1 Performed By: #### L [id number], L500.4100, L503.0105, [id number] #### [facility] [address] [place], [address] WBC (Bld) [#/Vol] 5.9 10*3/uL Normal 4.4-11.0 [facility] Comment on above: Order Comment: 114.1 Performed By: #### L [id number], L500.4100, L503.0105, [id number] #### [facility] [address] [place], [address] Basic Metabolic Profile (BMP )on 03-05-2025 BUN/CRE 9.9 RATIO Low 10-20 [facility] Comment on above: Order Comment: 114.1 Performed By: #### L [id number], L500.4100, L503.0105, [id number] #### [facility] [address] [place], [address] Calcium [Mass/Vol] 8.3 mg/dL Normal 7.6-11.0 [facility] Comment on above: Order Comment: 114.1 Performed By: #### L [id number], L500.4100, L503.0105, [id number] #### [facility] [address] [place], [address] Chloride [Moles/Vol] 102 mmol/L Normal 98-108 [facility] Comment on above: Order Comment: 114.1 Performed By: #### L [id number], L500.4100, L503.0105, [id number] #### [facility] [address] [place], [address] CO2 [Moles/Vol] 27.0 mmol/L Normal 21.0-32.0 [facility] Comment on above: Order Comment: 114.1 Performed By: #### L [id number], L500.4100, L503.0105, [id number] #### [facility] [address] [place], [address] Creatinine [Mass/Vol] 1.89 mg/dL High 0.70-1.20 [facility] Comment on above: Order Comment: 114.1 Performed By: #### L [id number], L500.4100, L503.0105, [id number] #### [facility] [address] [place], [address] GAP 9 Normal 5-15 [facility] Comment on above: Order Comment: 114.1 Performed By: #### L [id number], L500.4100, L503.0105, [id number] #### [facility] [address] [place], [address] GFR/1.73 sq M.predicted among non-blacks MDRD (S/P/Bld) [Vol rate/Area] 36 mL/min/{1.73_m2} Low >60 [facility] Comment on above: Order Comment: 114.1 Result Comment: mL/m in/1.73m2 CKD-EPI Creatinine Equation (2020) Performed By: #### L [id number], L500.4100, L503.0105, [id number] #### [facility] [address] [place], [address] Glucose [Mass/Vol] 100 mg/dL High 70-99 [facility] Comment on above: Order Comment: 114.1 Performed By: #### L [id number], L500.4100, L503.0105, [id number] #### [facility] [address] [place], [address] Potassium [Moles/Vol] 4.1 mmol/L Normal 3.3-5.1 [facility] Comment on above: Order Comment: 114.1 Performed By: #### L [id number], L500.4100, L503.0105, [id number] #### [facility] [address] [place], [address] Sodium [Moles/Vol] 137 mmol/L Normal 133-145 [facility] Comment on above: Order Comment: 114.1 Performed By: #### L [id number], L500.4100, L503.0105, [id number] #### [facility] [address] [place], [address] Urea nitrogen [Mass/Vol] 19 mg/dL Normal 4-19 [facility] Comment on above: Order Comment: 114.1 Performed By: #### L [id number], L500.4100, L503.0105, [id number] #### [facility] [address] [place], [address] CBC W/Diff, Automatedon 07-2 Absolute Lymph 2.04 X10 3/uL Normal 0.83-4.51 [facility] Comment on above: Order Comment: 114.1 Performed By: #### L [id number], L500.4100, L503.0105, [id number] #### [facility] [address] [place], [address] Absolute Neut 3.4 X10 3/uL Normal 2.0-7.7 [facility] Comment on above: Order Comment: 114.1 Performed By: #### L [id number], L500.4100, L503.0105, [id number] #### [facility] [address] [place], [address] Basophils/100 WBC (Bld) 0.2 % Normal 0-[address] [facility] Comment on above: Order Comment: 114.1 Performed By: #### L [id number], L500.4100, L503.0105, [id number] #### [facility] [address] [place], [address] Eosinophils/100 WBC (Bld) 1.0 % Normal 0-5 [facility] Comment on above: Order Comment: 114.1 Performed By: #### L [id number], L500.4100, L503.0105, [id number] #### [facility] [address] [place], [address] Erythrocyte distribution width (RBC) [Ratio] 15.7 % High 11.6-14.6 [facility] Comment on above: Order Comment: 114.1 Performed By: #### L [id number], L500.4100, L503.0105, [id number] #### [facility] [address] [place], [address] Hematocrit (Bld) [Volume fraction] 29.1 % Low 40-54 [facility] Comment on above: Order Comment: 114.1 Performed By: #### L 501.9520, L500.4100, L503.0105, [id number] #### [facility] [address] [place], [address] Hemoglobin (Bld) [Mass/Vol] 9.4 g/dL Low 13.0-16.5 [facility] Comment on above: Order Comment: 114.1 Performed By: #### L 501.9520, L500.4100, L503.0105, [id number] #### [facility] [address] [place], [address] IG% 0.300 Normal 0.0-0.9 [facility] Comment on above: Order Comment: 114.1 Result Comment: IG% - Immature Granulocytes (promyelocytes, myelocytes and metamyelocytes) > 1% indicates that a LEFT SHIFT is Present. Performed By: #### L 501.9520, L500.4100, L503.0105, [id number] #### [facility] [address] [place], [address] Lymphocytes/100 WBC (Bld) 33.2 % Normal 19-41 [facility] Comment on above: Order Comment: 114.1 Performed By: #### L [id number], L500.4100, L503.0105, [id number] #### [facility] [address] [place], [address] MCH (RBC) [Entitic mass] 27.4 pg Normal 27.0-32.0 [facility] Comment on above: Order Comment: 114.1 Performed By: #### L [id number], L500.4100, L503.0105, [id number] #### [facility] [address] [place], [address] MCHC (RBC) [Mass/Vol] 32.3 g/dL Normal 32-36 [facility] Comment on above: Order Comment: 114.1 Performed By: #### L [id number], L500.4100, L503.0105, [id number] #### [facility] [address] [place], [address] MCV (RBC) [Entitic vol] 84.8 fL Normal 80-[address] [facility] Comment on above: Order Comment: 114.1 Performed By: #### L [id number], L500.4100, L503.0105, [id number] #### [facility] [address] [place], [address] Monocytes/100 WBC (Bld) 10.4 % High 0-[address] [facility] Comment on above: Order Comment: 114.1 Performed By: #### L 501.9520, L500.4100, L503.0105, [id number] #### [facility] [address] [place], [address] Neutrophils/100 WBC (Bld) 54.9 % Normal 47-70 [facility] Comment on above: Order Comment: 114.1 Performed By: #### L [id number], L500.4100, L503.0105, [id number] #### [facility] [address] [place], [address] Nucleated RBC (Bld) [#/Vol] 0 10*3/uL Normal 0-5 [facility] Comment on above: Order Comment: 114.1 Performed By: #### L 501.9520, L500.4100, L503.0105, [id number] #### [facility] [address] [place], [address] Platelet mean volume (Bld) [Entitic vol] 10.3 fL Normal 6.2-12.0 [facility] Comment on above: Order Comment: 114.1 Performed By: #### L [id number], L500.4100, L503.0105, [id number] #### [facility] [address] [place], [address] Platelets (Bld) [#/Vol] 255 10*3/uL Normal 150-450 [facility] Comment on above: Order Comment: 114.1 Performed By: #### L [id number], L500.4100, L503.0105, [id number] #### [facility] [address] [place], [address] RBC (Bld) [#/Vol] 3.43 10*6/uL Low 4.6-6.2 [facility] Comment on above: Order Comment: 114.1 Performed By: #### L [id number], L500.4100, L503.0105, [id number] #### [facility] [address] [place], [address] RDW SD 48.3 fl High 35.1-43.9 [facility] Comment on above: Order Comment: 114.1 Performed By: #### L [id number], L500.4100, L503.0105, [id number] #### [facility] [address] [place], [address] WBC (Bld) [#/Vol] 6.1 10*3/uL Normal 4.4-11.0 [facility] Comment on above: Order Comment: 114.1 Performed By: #### L [id number], L500.4100, L503.0105, [id number] #### [facility] [address] [place], [address] Hemoglobin A1con 03-05-2025 HbA1c (Bld) [Mass fraction] 6.6 % High <=5.6 [facility] Comment on above: Order Comment: 114.1 Result Comment: Norm al < 5.7 % Prediabetic 5.7 - 6.4 % Diabetic >or= 6.5 % Please note range changes. Performed By: #### L [id number], L500.4100, L503.0105, [id number] #### [facility] [address] [place], [address] Lipid Profileon 03-05-2025 CHOL:HDL 2.78 Normal [facility] Comment on above: Order Comment: 114.1 Performed By: #### L [id number], L500.4100, L503.0105, [id number] #### [facility] [address] [place], [address] Cholesterol [Mass/Vol] 113 mg/dL Normal <=200 [facility] Comment on above: Order Comment: 114.1 Result Comment: Chol esterol level, Desirable <200 mg/dL Borderline high cholesterol 200-239 mg/dL High cholesterol >=240 mg/dL Recommendations of the NCEP Adult Treatment Panel for the following risk-cutoff thresholds for the [place] population. Performed By: #### L 501.9520, L500.4100, L503.0105, [id number] #### [facility] [address] [place], [address] Cholesterol in HDL [Mass/Vol] 41 mg/dL Normal [facility] Comment on above: Order Comment: 114.1 Result Comment: Ana [place] onal Cholesterol Education Program (NCEP) guidelines: <40 mg/dL: Low HDL-cholesterol (major risk factor for CHD) >= 60 mg/dL: High HDL-cholesterol (negative risk factor for CHD) HDL-cholesterol is affected by a number of factors, e.g. smoking, exercise, hormones, sex and age. Performed By: #### L [id number], L500.4100, L503.0105, [id number] #### [facility] [address] [place], [address] Cholesterol in LDL [Mass/Vol] 59 mg/dL Normal [facility] Comment on above: Order Comment: 114.1 Result Comment: Bord eaxntc=529-521 mg/dL Higher Urrj=806 mg/dL or greater Friedwald Equation for LDL-C Performed By: #### L [id number], L500.4100, L503.0105, [id number] #### [facility] [address] [place], [address] Cholesterol in VLDL [Mass/Vol] 13 mg/dL Normal 5-40 [facility] Comment on above: Order Comment: 114.1 Performed By: #### L [id number], L500.4100, L503.0105, [id number] #### [facility] [address] [place], [address] Triglyceride [Mass/Vol] 67 mg/dL Normal [facility] Comment on above: Order Comment: 114.1 Result Comment: The drugs N-Acetylcysteine and Metamizole may falsely depress this assay. Normal range: <150 mg/dL Borderline High: 150-199 mg/dL High: 200-499 mg/dL Very High: >500 mg/dL Performed By: #### L [id number], L500.4100, L503.0105, [id number] #### [facility] [address] [place], [address] Thyroid Stim Hormone (TSH)on 03-05-2025 TSH 1.520 uIU/mL Normal 0.300-4.200 [facility] Comment on above: Order Comment: 114.1 Performed By: #### L [id number], L500.4100, L503.0105, [id number] #### [facility] [address] [place], [address] Vitamin B12on 03-05-2025 Cobalamin (Vitamin B12) [Mass/Vol] 474 pg/mL Normal 180-914 [facility] Comment on above: Order Comment: 114.1 Performed By: #### L [id number], L500.4100, L503.0105, [id number] #### [facility] [address] [place], [address] CBC-Complete Blood Cnt No Di ffon 02-01-2025 Erythrocyte distribution width (RBC) [Ratio] 15.5 % High 11.6-14.6 [facility] Comment on above: Performed By: #### L [id number], L500.4100, L503.0105, [id number] #### [facility] [address] [place], [address] Hematocrit (Bld) [Volume fraction] 30.1 % Low 40-54 [facility] Comment on above: Performed By: #### L [id number], L500.4100, L503.0105, [id number] #### [facility] [address] [place], [address] Hemoglobin (Bld) [Mass/Vol] 9.5 g/dL Low 13.0-16.5 [facility] Comment on above: Performed By: #### L [id number], L500.4100, L503.0105, [id number] #### [facility] [address] [place], [address] MCH (RBC) [Entitic mass] 27.4 pg Normal 27.0-32.0 [facility] Comment on above: Performed By: #### L [id number], L500.4100, L503.0105, [id number] #### [facility] [address] [place], [address] MCHC (RBC) [Mass/Vol] 31.6 g/dL Low 32-36 [facility] Comment on above: Performed By: #### L [id number], L500.4100, L503.0105, [id number] #### [facility] [address] [place], [address] MCV (RBC) [Entitic vol] 86.7 fL Normal 80-[address] [facility] Comment on above: Performed By: #### L [id number], L500.4100, L503.0105, [id number] #### [facility] [address] [place], [id number] Platelet mean volume (Bld) [Entitic vol] 10.1 fL Normal 6.2-12.0 [facility] Comment on above: Performed By: #### L [id number], L500.4100, L503.0105, [id number] #### [facility] [address] [place], [address] Platelets (Bld) [#/Vol] 308 10*3/uL Normal 150-450 [facility] Comment on above: Performed By: #### L [id number], L500.4100, L503.0105, [id number] #### [facility] [address] [place], [address] RBC (Bld) [#/Vol] 3.47 10*6/uL Low 4.6-6.2 [facility] Comment on above: Performed By: #### L [id number], L500.4100, L503.0105, [id number] #### [facility] [address] [place], [address] RDW SD 49.1 fl High 35.1-43.9 [facility] Comment on above: Performed By: #### L [id number], L500.4100, L503.0105, [id number] #### [facility] [address] [place], [address] WBC (Bld) [#/Vol] 6.3 10*3/uL Normal 4.4-11.0 [facility] Comment on above: Performed By: #### L [id number], L500.4100, L503.0105, [id number] #### [facility] [address] [place], [address] Erythrocyte distribution wid th ratioOrdered By: Aura Sky on 02-01-2025 Erythrocyte distribution width (RBC) [Ratio] 15.5 % High 11.6-14.6 [facility] Erythrocyte distribution wid th standard deviationOrdered By: Aura Sky on 02-01-2025 Erythrocyte distribution width (RBC) [Ratio] 49.1 fl High 35.1-43.9 [facility] Hematocrit Auto (Bld) [Volum e fraction]Ordered By: Aura Sky on 02-01-2025 Hematocrit (Bld) [Volume fraction] 30.1 % Low 40-54 [facility] Hemoglobin measurementOrdere d By: Aura Sky on 02-01-2025 Hemoglobin (Bld) [Mass/Vol] 9.5 g/dL Low 13.0-16.5 [facility] MCV (mean corpuscular volume ) determinationOrdered By: Aura Sky on 02-01-2025 MCV (RBC) [Entitic vol] 86.7 fL 80-[address] [facility] Mean corpuscular hemoglobin (MCH) determinationOrdered By: Aura Sky on 02-01-2025 MCH (RBC) [Entitic mass] 27.4 pg 27.0-32.0 [facility] Mean corpuscular hemoglobin concentration (MCHC) determinationOrdered By: Aura Sky on 02-01-2025 MCHC (RBC) [Mass/Vol] 31.6 g/dL Low 32-36 [facility] Mean platelet volume determi nationOrdered By: Aura Sky on 02-01-2025 Platelet mean volume (Bld) [Entitic vol] 10.1 fL 6.2-12.0 [facility] Platelet countOrdered By: Juanita Sky on 02-01-2025 Platelets (Bld) [#/Vol] 308 10*3/uL 150-450 [facility] RBC Auto (Bld) [#/Vol]Ordere d By: Aura kSy on 02-01-2025 RBC (Bld) [#/Vol] 3.47 10*6/uL Low 4.6-6.2 [facility] White blood cell (WBC) count Ordered By: Aura Sky on 02-01-2025 WBC (Bld) [#/Vol] 6.3 10*3/uL 4.4-11.0 [facility] CBC-Complete Blood Cnt No Di ffon 01-02-2025 Erythrocyte distribution width (RBC) [Ratio] 15.9 % High 11.6-14.6 [facility] Comment on above: Order Comment: 114.1 Performed By: #### L [id number], L500.4100, L503.0105, [id number] #### [facility] [address] [place], [address] Hematocrit (Bld) [Volume fraction] 30.0 % Low 40-54 [facility] Comment on above: Order Comment: 114.1 Performed By: #### L [id number], L500.4100, L503.0105, [id number] #### [facility] [address] [place], [address] Hemoglobin (Bld) [Mass/Vol] 9.4 g/dL Low 13.0-16.5 [facility] Comment on above: Order Comment: 114.1 Performed By: #### L [id number], L500.4100, L503.0105, [id number] #### [facility] [address] [place], [address] MCH (RBC) [Entitic mass] 27.1 pg Normal 27.0-32.0 [facility] Comment on above: Order Comment: 114.1 Performed By: #### L [id number], L500.4100, L503.0105, [id number] #### [facility] [address] [place], [address] MCHC (RBC) [Mass/Vol] 31.3 g/dL Low 32-36 [facility] Comment on above: Order Comment: 114.1 Performed By: #### L [id number], L500.4100, L503.0105, [id number] #### [facility] [address] [place], [address] MCV (RBC) [Entitic vol] 86.5 fL Normal 80-[address] [facility] Comment on above: Order Comment: 114.1 Performed By: #### L [id number], L500.4100, L503.0105, [id number] #### [facility] [address] [place], [address] Platelet mean volume (Bld) [Entitic vol] 10.5 fL Normal 6.2-12.0 [facility] Comment on above: Order Comment: 114.1 Performed By: #### L [id number], L500.4100, L503.0105, [id number] #### [facility] [address] [place], [address] Platelets (Bld) [#/Vol] 376 10*3/uL Normal 150-450 [facility] Comment on above: Order Comment: 114.1 Performed By: #### L [id number], L500.4100, L503.0105, [id number] #### [facility] [address] [place], [address] RBC (Bld) [#/Vol] 3.47 10*6/uL Low 4.6-6.2 [facility] Comment on above: Order Comment: 114.1 Performed By: #### L [id number], L500.4100, L503.0105, [id number] #### [facility] [address] [place], [address] RDW SD 50.4 fl High 35.1-43.9 [facility] Comment on above: Order Comment: 114.1 Performed By: #### L [id number], L500.4100, L503.0105, [id number] #### [facility] [address] [place], [address] WBC (Bld) [#/Vol] 7.2 10*3/uL Normal 4.4-11.0 [facility] Comment on above: Order Comment: 114.1 Performed By: #### L [id number], L500.4100, L503.0105, [id number] #### [facility] [address] [place], [address] Erythrocyte distribution wid th ratioOrdered By: Aura Sky on 01-02-2025 Erythrocyte distribution width (RBC) [Ratio] 15.9 % High 11.6-14.6 [facility] Erythrocyte distribution wid th standard deviationOrdered By: Aura Sky on 01-02-2025 Erythrocyte distribution width (RBC) [Ratio] 50.4 fl High 35.1-43.9 [facility] Hematocrit Auto (Bld) [Volum e fraction]Ordered By: Aura Sky on 01-02-2025 Hematocrit (Bld) [Volume fraction] 30.0 % Low 40-54 [facility] Hemoglobin measurementOrdere d By: Aura Sky on 01-02-2025 Hemoglobin (Bld) [Mass/Vol] 9.4 g/dL Low 13.0-16.5 [facility] MCV (mean corpuscular volume ) determinationOrdered By: Aura Sky on 01-02-2025 MCV (RBC) [Entitic vol] 86.5 fL 80-[address] [facility] Mean corpuscular hemoglobin (MCH) determinationOrdered By: Aura Sky on 01-02-2025 MCH (RBC) [Entitic mass] 27.1 pg 27.0-32.0 [facility] Mean corpuscular hemoglobin concentration (MCHC) determinationOrdered By: Aura Sky on 01-02-2025 MCHC (RBC) [Mass/Vol] 31.3 g/dL Low 32-36 [facility] Mean platelet volume determi nationOrdered By: Aura Sky on 01-02-2025 Platelet mean volume (Bld) [Entitic vol] 10.5 fL 6.2-12.0 [facility] Platelet countOrdered By: Juanita Sky on 01-02-2025 Platelets (Bld) [#/Vol] 376 10*3/uL 150-450 [facility] RBC Auto (Bld) [#/Vol]Ordere d By: Aura Sky on 01-02-2025 RBC (Bld) [#/Vol] 3.47 10*6/uL Low 4.6-6.2 [facility] White blood cell (WBC) count Ordered By: Aura Sky on 01-02-2025 WBC (Bld) [#/Vol] 7.2 10*3/uL 4.4-11.0 [facility] Stool Occult Blood iFOBon STOB Negative Normal [facility] Comment on above: Performed By: #### M 100.7900 #### [facility] [address] [place], [address] Stool gastrointestinal hemog lobin detection by immunologic methodOrdered By: Aura Sky on 12-08-2024 Lower GI hemoglobin IA Ql (Stl) [facility] Anion gap in Serum or Plasma Ordered By: Aura Sky on 11-30-2024 Anion gap [Moles/Vol] 7 mmol/L 5-15 [facility] BUN/creatinine ratioOrdered By: Aura Sky on 11-30-2024 Urea nitrogen/Creatinine [Mass ratio] 9.2 mg/mg Low 10-20 [facility] Basic Metabolic Profile (BMP )on 11-30-2024 BUN/CRE 9.2 RATIO Low - [facility] Comment on above: Order Comment: 114.1 Performed By: #### L [id number], L500.4100, L503.0105, [id number] #### [facility] [address] [place], [address] Calcium [Mass/Vol] 7.7 mg/dL Normal 7.6-11.0 [facility] Comment on above: Order Comment: 114.1 Performed By: #### L [id number], L500.4100, L503.0105, [id number] #### [facility] [address] [place], [address] Chloride [Moles/Vol] 103 mmol/L Normal 98-108 [facility] Comment on above: Order Comment: 114.1 Performed By: #### L [id number], L500.4100, L503.0105, [id number] #### [facility] [address] [place], [address] CO2 [Moles/Vol] 27.2 mmol/L Normal 21.0-32.0 [facility] Comment on above: Order Comment: 114.1 Performed By: #### L [id number], L500.4100, L503.0105, [id number] #### [facility] [address] [place], [address] Creatinine [Mass/Vol] 1.55 mg/dL High 0.70-1.20 [facility] Comment on above: Order Comment: 114.1 Performed By: #### L [id number], L500.4100, L503.0105, [id number] #### [facility] [address] [place], [address] GAP 7 Normal 5-15 [facility] Comment on above: Order Comment: 114.1 Performed By: #### L [id number], L500.4100, L503.0105, [id number] #### [facility] [address] [place], [address] GFR/1.73 sq M.predicted among non-blacks MDRD (S/P/Bld) [Vol rate/Area] 45 mL/min/{1.73_m2} Low >60 [facility] Comment on above: Order Comment: 114.1 Result Comment: mL/m in/1.73m2 CKD-EPI Creatinine Equation (2020) Performed By: #### L [id number], L500.4100, L503.0105, [id number] #### [facility] [address] [place], [address] Glucose [Mass/Vol] 92 mg/dL Normal 70-99 [facility] Comment on above: Order Comment: 114.1 Performed By: #### L [id number], L500.4100, L503.0105, [id number] #### [facility] [address] [place], [address] Potassium [Moles/Vol] 4.3 mmol/L Normal 3.3-5.1 [facility] Comment on above: Order Comment: 114.1 Performed By: #### L [id number], L500.4100, L503.0105, [id number] #### [facility] [address] [place], [address] Sodium [Moles/Vol] 137 mmol/L Normal 133-145 [facility] Comment on above: Order Comment: 114.1 Performed By: #### L [id number], L500.4100, L503.0105, [id number] #### [facility] [address] [place], [address] Urea nitrogen [Mass/Vol] 14 mg/dL Normal 4-19 [facility] Comment on above: Order Comment: 114.1 Performed By: #### L [id number], L500.4100, L503.0105, [id number] #### [facility] [address] [place], [address] CBC-Complete Blood Cnt No Di ffon 11-30-2024 Erythrocyte distribution width (RBC) [Ratio] 16.8 % High 11.6-14.6 [facility] Comment on above: Order Comment: 114.1 Performed By: #### L 501.9520, L500.4100, L503.0105, [id number] #### [facility] [address] [place], [address] Hematocrit (Bld) [Volume fraction] 28.4 % Low 40-54 [facility] Comment on above: Order Comment: 114.1 Performed By: #### L [id number], L500.4100, L503.0105, [id number] #### [facility] [address] [place], [address] Hemoglobin (Bld) [Mass/Vol] 8.8 g/dL Low 13.0-16.5 [facility] Comment on above: Order Comment: 114.1 Performed By: #### L 501.9520, L500.4100, L503.0105, [id number] #### [facility] [address] [place], [address] MCH (RBC) [Entitic mass] 27.2 pg Normal 27.0-32.0 [facility] Comment on above: Order Comment: 114.1 Performed By: #### L [id number], L500.4100, L503.0105, [id number] #### [facility] [address] [place], [address] MCHC (RBC) [Mass/Vol] 31.0 g/dL Low 32-36 [facility] Comment on above: Order Comment: 114.1 Performed By: #### L [id number], L500.4100, L503.0105, [id number] #### [facility] [address] [place], [address] MCV (RBC) [Entitic vol] 87.7 fL Normal 80-[address] [facility] Comment on above: Order Comment: 114.1 Performed By: #### L [id number], L500.4100, L503.0105, [id number] #### [facility] [address] [place], [address] Platelet mean volume (Bld) [Entitic vol] 9.8 fL Normal 6.2-12.0 [facility] Comment on above: Order Comment: 114.1 Performed By: #### L [id number], L500.4100, L503.0105, [id number] #### [facility] [address] [place], [address] Platelets (Bld) [#/Vol] 382 10*3/uL Normal 150-450 [facility] Comment on above: Order Comment: 114.1 Performed By: #### L [id number], L500.4100, L503.0105, [id number] #### [facility] [address] [place], [address] RBC (Bld) [#/Vol] 3.24 10*6/uL Low 4.6-6.2 [facility] Comment on above: Order Comment: 114.1 Performed By: #### L [id number], L500.4100, L503.0105, [id number] #### [facility] [address] [place], [address] RDW SD 53.2 fl High 35.1-43.9 [facility] Comment on above: Order Comment: 114.1 Performed By: #### L [id number], L500.4100, L503.0105, [id number] #### [facility] [address] [place], [address] WBC (Bld) [#/Vol] 6.0 10*3/uL Normal 4.4-11.0 [facility] Comment on above: Order Comment: 114.1 Performed By: #### L [id number], L500.4100, L503.0105, [id number] #### [facility] [address] [place], [address] Carbon dioxide, total [Moles /volume] in Central venous bloodOrdered By: Aura Sky on 11-30-2024 CO2 [Moles/Vol] 27.2 mmol/L 21.0-32.0 [facility] Chloride assayOrdered By: Juanita Sky on 11-30-2024 Chloride [Moles/Vol] 103 mmol/L 98-108 [facility] Erythrocyte distribution wid th ratioOrdered By: Aura Sky on 11-30-2024 Erythrocyte distribution width (RBC) [Ratio] 16.8 % High 11.6-14.6 [facility] Erythrocyte distribution wid th standard deviationOrdered By: Aura Sky on 11-30-2024 Erythrocyte distribution width (RBC) [Ratio] 53.2 fl High 35.1-43.9 [facility] Ferritinon 11-30-2024 Ferritin [Mass/Vol] 26 ng/mL Low 37-417 [facility] Comment on above: Order Comment: 114.1 Performed By: #### L [id number], L500.4100, L503.0105, L501.9985 #### [facility] [address] [place], [address] Glomerular filtration rate ( GFR) estimation/1.73 sq m using serum, plasma, or whole bOrdered By: Aura Sky on 11-30-2024 GFR/1.73 sq M.predicted among non-blacks MDRD (S/P/Bld) [Vol rate/Area] 45 mL/min/{1.73_m2} Low >60 [facility] Comment on above: mL/min/1.73m2 CKD-EP I Creatinine Equation (2020) Hematocrit Auto (Bld) [Volum e fraction]Ordered By: Aura Sky on 11-30-2024 Hematocrit (Bld) [Volume fraction] 28.4 % Low 40-54 [facility] Hemoglobin measurementOrdere d By: Aura Sky on 11-30-2024 Hemoglobin (Bld) [Mass/Vol] 8.8 g/dL Low 13.0-16.5 [facility] MCV (mean corpuscular volume ) determinationOrdered By: Aura Sky on 11-30-2024 MCV (RBC) [Entitic vol] 87.7 fL 80-[address] [facility] Mean corpuscular hemoglobin (MCH) determinationOrdered By: Aura Sky on 11-30-2024 MCH (RBC) [Entitic mass] 27.2 pg 27.0-32.0 [facility] Mean corpuscular hemoglobin concentration (MCHC) determinationOrdered By: Aura Sky on 11-30-2024 MCHC (RBC) [Mass/Vol] 31.0 g/dL Low 32-36 [facility] Mean platelet volume determi nationOrdered By: Aura Sky on 11-30-2024 Platelet mean volume (Bld) [Entitic vol] 9.8 fL 6.2-12.0 [facility] Platelet countOrdered By: Juanita Sky on 11-30-2024 Platelets (Bld) [#/Vol] 382 10*3/uL 150-450 [facility] Potassium measurement (mass/ volume)Ordered By: Aura Sky on 11-30-2024 Potassium (Unsp spec) [Mass/Vol] 4.3 mmol/L 3.3-5.1 [facility] RBC Auto (Bld) [#/Vol]Ordere d By: Aura Sky on 11-30-2024 RBC (Bld) [#/Vol] 3.24 10*6/uL Low 4.6-6.2 [facility] Serum creatinine measurement (mass/volume)Ordered By: Aura Sky on 11-30-2024 Creatinine [Mass/Vol] 1.55 mg/dL High 0.70-1.20 [facility] Serum glucose measurement (m ass/volume)Ordered By: Aura Sky on 11-30-2024 Glucose [Mass/Vol] 92 mg/dL 70-99 [facility] Serum or plasma calcium maria l urement (mass/volume)Ordered By: Aura Sky on 11-30-2024 Calcium [Mass/Vol] 7.7 mg/dL 7.6-11.0 [facility] Serum or plasma ferritin adryan surement (mass/volume)Ordered By: Aura Sky on 11-30-2024 Ferritin [Mass/Vol] 26 ng/mL Low 37-417 [facility] Serum or plasma urea nitroge n measurement (mass/volume)Ordered By: Aura Sky on 11-30-2024 Urea nitrogen [Mass/Vol] 14 mg/dL 4-19 [facility] Sodium levelOrdered By: Aura Sky on 11-30-2024 Sodium [Moles/Vol] 137 mmol/L 133-145 [facility] White blood cell (WBC) count Ordered By: Aura Sky on 11-30-2024 WBC (Bld) [#/Vol] 6.0 10*3/uL 4.4-11.0 [facility] CBC-Complete Blood Cnt No Di ffon 11-01-2024 Erythrocyte distribution width (RBC) [Ratio] 14.8 % High 11.6-14.6 [facility] Comment on above: Order Comment: 114.1 Performed By: #### L [id number], L500.4100, L503.0105, L501.9985 #### [facility] [address] [place], [address] Hematocrit (Bld) [Volume fraction] 27.8 % Low 40-54 [facility] Comment on above: Order Comment: 114.1 Performed By: #### L [id number], L500.4100, L503.0105, [id number] #### [facility] [address] [place], [address] Hemoglobin (Bld) [Mass/Vol] 8.7 g/dL Low 13.0-16.5 [facility] Comment on above: Order Comment: 114.1 Performed By: #### L [id number], L500.4100, L503.0105, [id number] #### [facility] [address] [place], [address] MCH (RBC) [Entitic mass] 26.6 pg Low 27.0-32.0 [facility] Comment on above: Order Comment: 114.1 Performed By: #### L [id number], L500.4100, L503.0105, [id number] #### [facility] [address] [place], [address] MCHC (RBC) [Mass/Vol] 31.3 g/dL Low 32-36 [facility] Comment on above: Order Comment: 114.1 Performed By: #### L [id number], L500.4100, L503.0105, [id number] #### [facility] [address] [place], [address] MCV (RBC) [Entitic vol] 85.0 fL Normal 80-[address] [facility] Comment on above: Order Comment: 114.1 Performed By: #### L [id number], L500.4100, L503.0105, [id number] #### [facility] [address] [place], [address] Platelet mean volume (Bld) [Entitic vol] 10.3 fL Normal 6.2-12.0 [facility] Comment on above: Order Comment: 114.1 Performed By: #### L [id number], L500.4100, L503.0105, [id number] #### [facility] [address] [place], [address] Platelets (Bld) [#/Vol] 307 10*3/uL Normal 150-450 [facility] Comment on above: Order Comment: 114.1 Performed By: #### L [id number], L500.4100, L503.0105, [id number] #### [facility] [address] [place], [address] RBC (Bld) [#/Vol] 3.27 10*6/uL Low 4.6-6.2 [facility] Comment on above: Order Comment: 114.1 Performed By: #### L [id number], L500.4100, L503.0105, [id number] #### [facility] [address] [place], [address] RDW SD 45.7 fl High 35.1-43.9 [facility] Comment on above: Order Comment: 114.1 Performed By: #### L [id number], L500.4100, L503.0105, [id number] #### [facility] [address] [place], [address] WBC (Bld) [#/Vol] 5.8 10*3/uL Normal 4.4-11.0 [facility] Comment on above: Order Comment: 114.1 Performed By: #### L [id number], L500.4100, L503.0105, [id number] #### [facility] [address] [place], [place], [id number] Erythrocyte distribution wid th (RBC) [Ratio]Ordered By: Aura Sky on 11-01-2024 Erythrocyte distribution width (RBC) [Entitic vol] 45.7 fL High 35.1-43.9 [facility] Erythrocyte distribution wid th ratioOrdered By: Aura Sky on 11-01-2024 Erythrocyte distribution width (RBC) [Ratio] 14.8 % High 11.6-14.6 [facility] Erythrocyte distribution wid th standard deviationOrdered By: Aura Sky on 11-01-2024 Erythrocyte distribution width (RBC) [Ratio] 45.7 fl High 35.1-43.9 [facility] Hematocrit Auto (Bld) [Volum e fraction]Ordered By: Aura Sky on 11-01-2024 Hematocrit (Bld) [Volume fraction] 27.8 % Low 40-54 [facility] Hemoglobin measurementOrdere d By: Aura Sky on 11-01-2024 Hemoglobin (Bld) [Mass/Vol] 8.7 g/dL Low 13.0-16.5 [facility] MCV (mean corpuscular volume ) determinationOrdered By: Aura Sky on 11-01-2024 MCV (RBC) [Entitic vol] 85.0 fL 80-[address] [facility] Mean corpuscular hemoglobin (MCH) determinationOrdered By: Aura Sky on 11-01-2024 MCH (RBC) [Entitic mass] 26.6 pg Low 27.0-32.0 [facility] Mean corpuscular hemoglobin concentration (MCHC) determinationOrdered By: Aura Sky on 11-01-2024 MCHC (RBC) [Mass/Vol] 31.3 g/dL Low 32-36 [facility] Mean platelet volume determi nationOrdered By: Aura Sky on 11-01-2024 Platelet mean volume (Bld) [Entitic vol] 10.3 fL 6.2-12.0 [facility] Platelet countOrdered By: Juanita Sky on 11-01-2024 Platelets (Bld) [#/Vol] 307 10*3/uL 150-450 [facility] RBC Auto (Bld) [#/Vol]Ordere d By: Aura Sky on 11-01-2024 RBC (Bld) [#/Vol] 3.27 10*6/uL Low 4.6-6.2 [facility] White blood cell (WBC) count Ordered By: Aura Sky on 11-01-2024 WBC (Bld) [#/Vol] 5.8 10*3/uL 4.4-11.0 [facility] CBC-Complete Blood Cnt No Di ffon 10-03-2024 Erythrocyte distribution width (RBC) [Ratio] 14.8 % High 11.6-14.6 [facility] Comment on above: Order Comment: 126.1 Performed By: #### L 100.0500 #### [facility] [address] [place], [address] Hematocrit (Bld) [Volume fraction] 29.3 % Low 40-54 [facility] Comment on above: Order Comment: 126.1 Performed By: #### L 100.0500 #### [facility] [address] [place], [address] Hemoglobin (Bld) [Mass/Vol] 9.0 g/dL Low 13.0-16.5 [facility] Comment on above: Order Comment: 126.1 Performed By: #### L 100.0500 #### [facility] [address] [place], [address] MCH (RBC) [Entitic mass] 27.1 pg Normal 27.0-32.0 [facility] Comment on above: Order Comment: 126.1 Performed By: #### L 100.0500 #### [facility] [address] [place], [address] MCHC (RBC) [Mass/Vol] 30.7 g/dL Low 32-36 [facility] Comment on above: Order Comment: 126.1 Performed By: #### L 100.0500 #### [facility] [address] [place], [id number] MCV (RBC) [Entitic vol] 88.3 fL Normal 80-[address] [facility] Comment on above: Order Comment: 126.1 Performed By: #### L 100.0500 #### [facility] [address] [place], [id number] Platelet mean volume (Bld) [Entitic vol] 10.9 fL Normal 6.2-12.0 [facility] Comment on above: Order Comment: 126.1 Performed By: #### L 100.0500 #### [facility] [address] [place], [id number] Platelets (Bld) [#/Vol] 234 10*3/uL Normal 150-450 [facility] Comment on above: Order Comment: 126.1 Performed By: #### L 100.0500 #### [facility] [address] [place], [id number] RBC (Bld) [#/Vol] 3.32 10*6/uL Low 4.6-6.2 [facility] Comment on above: Order Comment: 126.1 Performed By: #### L 100.0500 #### [facility] [address] [place], [id number] RDW SD 47.5 fl High 35.1-43.9 [facility] Comment on above: Order Comment: 126.1 Performed By: #### L 100.0500 #### [facility] [address] [place], [id number] WBC (Bld) [#/Vol] 5.7 10*3/uL Normal 4.4-11.0 [facility] Comment on above: Order Comment: 126.1 Performed By: #### L 100.0500 #### [facility] [address] [place], [id number] Erythrocyte distribution wid th (RBC) [Ratio]Ordered By: Aura Sky on 10-03-2024 Erythrocyte distribution width (RBC) [Entitic vol] 47.5 fL High 35.1-43.9 [facility] Erythrocyte distribution wid th ratioOrdered By: Aura Sky on 10-03-2024 Erythrocyte distribution width (RBC) [Ratio] 14.8 % High 11.6-14.6 [facility] Erythrocyte distribution wid th standard deviationOrdered By: Aura Sky on 10-03-2024 Erythrocyte distribution width (RBC) [Ratio] 47.5 fl High 35.1-43.9 [facility] Hematocrit Auto (Bld) [Volum e fraction]Ordered By: Aura Sky on 10-03-2024 Hematocrit (Bld) [Volume fraction] 29.3 % Low 40-54 [facility] Hemoglobin measurementOrdere d By: Aura Sky on 10-03-2024 Hemoglobin (Bld) [Mass/Vol] 9.0 g/dL Low 13.0-16.5 [facility] MCV (mean corpuscular volume ) determinationOrdered By: Aura Sky on 10-03-2024 MCV (RBC) [Entitic vol] 88.3 fL 80-[address] [facility] Mean corpuscular hemoglobin (MCH) determinationOrdered By: Aura Sky on 10-03-2024 MCH (RBC) [Entitic mass] 27.1 pg 27.0-32.0 [facility] Mean corpuscular hemoglobin concentration (MCHC) determinationOrdered By: Aura Sky on 10-03-2024 MCHC (RBC) [Mass/Vol] 30.7 g/dL Low 32-36 [facility] Mean platelet volume determi nationOrdered By: Aura Sky on 10-03-2024 Platelet mean volume (Bld) [Entitic vol] 10.9 fL 6.2-12.0 [facility] Platelet countOrdered By: Juanita Sky on 10-03-2024 Platelets (Bld) [#/Vol] 234 10*3/uL 150-450 [facility] RBC Auto (Bld) [#/Vol]Ordere d By: Aura Sky on 10-03-2024 RBC (Bld) [#/Vol] 3.32 10*6/uL Low 4.6-6.2 [facility] White blood cell (WBC) count Ordered By: Aura Sky on 10-03-2024 WBC (Bld) [#/Vol] 5.7 10*3/uL 4.4-11.0 [facility] Basic Metabolic Profile (BMP )on 09-04-2024 BUN/CRE 9.0 RATIO Low 10-20 [facility] Comment on above: Order Comment: 114.1 Performed By: #### L [id number], L500.4100, L503.0105, L501.9985 #### [facility] [address] [place], [address] CA,Total 8.2 mg/dL Low 8.5-10.1 [facility] Comment on above: Order Comment: 114.1 Performed By: #### L [id number], L500.4100, L503.0105, L501.9985 #### [facility] [address] [place], [address] Chloride [Moles/Vol] 101 mmol/L Normal 98-107 [facility] Comment on above: Order Comment: 114.1 Performed By: #### L [id number], L500.4100, L503.0105, L501.9985 #### [facility] [address] [place], [address] CO2 [Moles/Vol] 29.0 mmol/L Normal 21.0-32.0 [facility] Comment on above: Order Comment: 114.1 Performed By: #### L [id number], L500.4100, L503.0105, L501.9985 #### [facility] [address] [place], [address] Creatinine [Mass/Vol] 1.66 mg/dL High 0.70-1.30 [facility] Comment on above: Order Comment: 114.1 Result Comment: The validity of the calculated GFR GFRAA in patients over 70 years has not been determined. Clinical correlation is essential. Performed By: #### L 501.9520, L500.4100, L503.0105, L501.9985 #### [facility] [address] [place], [address] EST GFR - AA 52 mL/min Low >60 [facility] Comment on above: Order Comment: 114.1 Result Comment: Afri can [place] GFR Calc Performed By: #### L [id number], L500.4100, L503.0105, L501.9985 #### [facility] [address] [place], [address] GAP 8 Normal 5-15 [facility] Comment on above: Order Comment: 114.1 Performed By: #### L [id number], L500.4100, L503.0105, L501.9985 #### [facility] [address] [place], [address] GFR/1.73 sq M.predicted among non-blacks MDRD (S/P/Bld) [Vol rate/Area] 43 mL/min/{1.73_m2} Low >60 [facility] Comment on above: Order Comment: 114.1 Result Comment: Non- GFR Calc Performed By: #### L [id number], L500.4100, L503.0105, L501.9985 #### [facility] [address] [place], [address] Glucose [Mass/Vol] 134 mg/dL High 74-106 [facility] Comment on above: Order Comment: 114.1 Result Comment: Fast ing Glucose result greater than or equal to 126 mg/dL suggests DIABETES MELLITUS per A.D.A. criteria. Performed By: #### L [id number], L500.4100, L503.0105, L501.9985 #### [facility] [address] [place], [address] Potassium [Moles/Vol] 3.9 mmol/L Normal 3.5-5.1 [facility] Comment on above: Order Comment: 114.1 Performed By: #### L [id number], L500.4100, L503.0105, L501.9985 #### [facility] [address] [place], [address] Sodium [Moles/Vol] 138 mmol/L Normal 136-145 [facility] Comment on above: Order Comment: 114.1 Performed By: #### L [id number], L500.4100, L503.0105, L501.9985 #### [facility] [address] [place], [address] Urea nitrogen [Mass/Vol] 15 mg/dL Normal 7-18 [facility] Comment on above: Order Comment: 114.1 Performed By: #### L [id number], L500.4100, L503.0105, L501.9985 #### [facility] [address] [place], [address] Blood urea nitrogen (BUN)/cr eatinine ratioOrdered By: Aura Sky on 09-04-2024 Urea nitrogen/Creatinine [Mass ratio] 9.0 mg/mg Low 10-20 [facility] CBC-Complete Blood Cnt No Di ffon 09-04-2024 Erythrocyte distribution width (RBC) [Ratio] 14.9 % High 11.6-14.6 [facility] Comment on above: Order Comment: 126-1 Performed By: #### L [id number], L500.4100, L100.0500, L501.9520, L500.2500, L503.0105 #### [facility] [address] [place], [address] Hematocrit (Bld) [Volume fraction] 29.4 % Low 40-54 [facility] Comment on above: Order Comment: 126-1 Performed By: #### L [id number], L500.4100, L100.0500, L501.9520, L500.2500, L503.0105 #### [facility] [address] [place], [address] Hemoglobin (Bld) [Mass/Vol] 9.1 g/dL Low 13.0-16.5 [facility] Comment on above: Order Comment: 126-1 Performed By: #### L 501.9985, L500.4100, L100.0500, L501.9520, L500.2500, L503.0105 #### [facility] [address] [place], [address] MCH (RBC) [Entitic mass] 27.1 pg Normal 27.0-32.0 [facility] Comment on above: Order Comment: 126-1 Performed By: #### L [id number], L500.4100, L100.0500, L501.9520, L500.2500, L503.0105 #### [facility] [address] [place], [address] MCHC (RBC) [Mass/Vol] 31.0 g/dL Low 32-36 [facility] Comment on above: Order Comment: 126-1 Performed By: #### L [id number], L500.4100, L100.0500, L501.9520, L500.2500, L503.0105 #### [facility] [address] [facility] [place], [address] MCV (RBC) [Entitic vol] 87.5 fL Normal 80-[address] [facility] Comment on above: Order Comment: 126-1 Performed By: #### L [id number], L500.4100, L100.0500, L501.9520, L500.2500, L503.0105 #### [facility] [address] [place], [address] Platelet mean volume (Bld) [Entitic vol] 11.3 fL Normal 6.2-12.0 [facility] Comment on above: Order Comment: 126-1 Performed By: #### L 501.9985, L500.4100, L100.0500, L501.9520, L500.2500, L503.0105 #### [facility] [address] [place], [address] Platelets (Bld) [#/Vol] 228 10*3/uL Normal 150-450 [facility] Comment on above: Order Comment: 126-1 Performed By: #### L [id number], L500.4100, L100.0500, L501.9520, L500.2500, L503.0105 #### [facility] [address] [place], [address] RBC (Bld) [#/Vol] 3.36 10*6/uL Low 4.6-6.2 [facility] Comment on above: Order Comment: 126-1 Performed By: #### L 501.9985, L500.4100, L100.0500, L501.9520, L500.2500, L503.0105 #### [facility] [address] [place], [address] RDW SD 47.5 fl High 35.1-43.9 [facility] Comment on above: Order Comment: 126-1 Performed By: #### L [id number], L500.4100, L100.0500, L501.9520, L500.2500, L503.0105 #### [facility] [address] [place], [address] WBC (Bld) [#/Vol] 5.5 10*3/uL Normal 4.4-11.0 [facility] Comment on above: Order Comment: 126-1 Performed By: #### L [id number], L500.4100, L100.0500, L501.9520, L500.2500, L503.0105 #### [facility] [address] [place], [address] Carbon dioxide measurementOr dered By: Aura Sky on 09-04-2024 CO2 [Moles/Vol] 29.0 mmol/L 21.0-32.0 [facility] Chloride measurementOrdered By: Aura Sky on 09-04-2024 Chloride [Moles/Vol] 101 mmol/L 98-107 [facility] Erythrocyte distribution wid th (RBC) [Ratio]Ordered By: Aura Sky on 09-04-2024 Erythrocyte distribution width (RBC) [Entitic vol] 47.5 fL High 35.1-43.9 [facility] Erythrocyte distribution wid th ratioOrdered By: Aura Sky on 09-04-2024 Erythrocyte distribution width (RBC) [Ratio] 14.9 % High 11.6-14.6 [facility] Erythrocyte distribution wid th standard deviationOrdered By: Aura Sky on 09-04-2024 Erythrocyte distribution width (RBC) [Ratio] 47.5 fl High 35.1-43.9 [facility] Estimated glomerular filtrat ion rate (GFR) AmericanOrdered By: Aura Sky on 09-04-2024 Estimated GFR (MDRD) Amer 52 mL/min Low >60 [facility] Comment on above: GFR Calc Glomerular filtration rate ( GFR) estimationOrdered By: Aura Sky on 09-04-2024 Estimated GFR (MDRD) Non-Af Amer 43 mL/min Low >60 [facility] Comment on above: Non- GFR Calc GFR/1.73 sq M.predicted among non-blacks MDRD (S/P/Bld) [Vol rate/Area] 43 mL/min/{1.73_m2} Low >60 [facility] Comment on above: Non- GFR Calc Glucose measurementOrdered B y: Aura Sky on 09-04-2024 Glucose [Mass/Vol] 134 mg/dL High 74-106 [facility] Comment on above: Fasting Glucose resu lt greater than or equal to 126 mg/dL suggests DIABETES MELLITUS per A.D.A. criteria. Hematocrit Auto (Bld) [Volum e fraction]Ordered By: Aura Sky on 09-04-2024 Hematocrit (Bld) [Volume fraction] 29.4 % Low 40-54 [facility] Hemoglobin A1con 09-04-2024 HbA1c (Bld) [Mass fraction] 6.0 % High 3.8-5.6 [facility] Comment on above: Order Comment: 114.1 Result Comment: Norm al < 5.7 % Prediabetic 5.7 - 6.4 % Diabetic >or= 6.5 % Please note range changes. Performed By: #### L [id number], L500.4100, L503.0105, L501.9985 #### [facility] [address] [place], [place], [address] Hemoglobin A1c percentageOrd ered By: Aura Sky on 09-04-2024 HbA1c (Bld) [Mass fraction] 6.0 % High 3.8-5.6 [facility] Comment on above: Normal < 5.7 % Predi abetic 5.7 - 6.4 % Diabetic >or= 6.5 % Please note range changes. Hemoglobin measurementOrdere d By: Aura Sky on 09-04-2024 Hemoglobin (Bld) [Mass/Vol] 9.1 g/dL Low 13.0-16.5 [facility] High density lipoprotein (HD L) measurementOrdered By: Aura Sky on 09-04-2024 Cholesterol in HDL [Mass/Vol] 38 mg/dL Low >40 [facility] Comment on above: The drugs N-Acetylcy steine and Metamizole may falsely depress this assay. Reference Range HDL <40 mg/dL Low HDL Cholesterol HDL >or= 60 mg/dL High HDL Cholesterol Lipid Profileon 09-04-2024 Cholesterol [Mass/Vol] 103 mg/dL Normal 200 [facility] Comment on above: Order Comment: 114.1 Result Comment: <200 mg/dL Desirable 200-240 mg/dL Borderline >240 mg/dL High Risk Performed By: #### L [id number], L500.4100, L503.0105, L501.9985 #### [facility] [address] [place], [place], [id number] Cholesterol in HDL [Mass/Vol] 38 mg/dL Low [facility] Comment on above: Order Comment: 114.1 Result Comment: The drugs N-Acetylcysteine and Metamizole may falsely depress this assay. Reference Range HDL <40 mg/dL Low HDL Cholesterol HDL >or= 60 mg/dL High HDL Cholesterol Performed By: #### L [id number], L500.4100, L503.0105, L501.9985 #### [facility] [address] [place], [address] Cholesterol in LDL [Mass/Vol] 47 mg/dL Normal 0-130 [facility] Comment on above: Order Comment: 114.1 Performed By: #### L [id number], L500.4100, L503.0105, L501.9985 #### [facility] [address] [place], [address] Cholesterol in VLDL [Mass/Vol] 18 mg/dL Normal 5-40 [facility] Comment on above: Order Comment: 114.1 Performed By: #### L [id number], L500.4100, L503.0105, L501.9985 #### [facility] [address] [place], [address] Triglyceride [Mass/Vol] 88 mg/dL Normal [facility] Comment on above: Order Comment: 114.1 Result Comment: The drugs N-Acetylcysteine and Metamizole may falsely depress this assay. Serum Triglycerides Reference Interval Normal <150 mg/dL Borderline high 150 - 199 mg/dL High 200 - 499 mg/dL Very High > or = 500 mg/dL Performed By: #### L [id number], L500.4100, L503.0105, L501.9985 #### [facility] [address] [place], [address] Low density lipoprotein (LDL ) cholesterol measurementOrdered By: Aura Sky on 09-04-2024 Cholesterol in LDL [Mass/Vol] 47 mg/dL 0-130 [facility] MCV (mean corpuscular volume ) determinationOrdered By: Aura Sky on 09-04-2024 MCV (RBC) [Entitic vol] 87.5 fL 80-[address] [facility] Mean corpuscular hemoglobin (MCH) determinationOrdered By: Aura Sky on 09-04-2024 MCH (RBC) [Entitic mass] 27.1 pg 27.0-32.0 [facility] Mean corpuscular hemoglobin concentration (MCHC) determinationOrdered By: Aura Sky on 09-04-2024 MCHC (RBC) [Mass/Vol] 31.0 g/dL Low 32-36 [facility] Mean platelet volume determi nationOrdered By: Aura Sky on 09-04-2024 Platelet mean volume (Bld) [Entitic vol] 11.3 fL 6.2-12.0 [facility] Platelet countOrdered By: Juanita Sky on 09-04-2024 Platelets (Bld) [#/Vol] 228 10*3/uL 150-450 [facility] Potassium measurementOrdered By: Aura Sky on 09-04-2024 Potassium [Moles/Vol] 3.9 mmol/L 3.5-5.1 [facility] RBC Auto (Bld) [#/Vol]Ordere d By: Aura Sky on 09-04-2024 RBC (Bld) [#/Vol] 3.36 10*6/uL Low 4.6-6.2 [facility] Serum anion gap measurementO rdered By: Aura Sky on 09-04-2024 Anion gap [Moles/Vol] 8 mmol/L 5-15 [facility] Serum or plasma calcium maria l urement (mass/volume)Ordered By: Aura Sky on 09-04-2024 Calcium [Mass/Vol] 8.2 mg/dL Low 8.5-10.1 [facility] Serum or plasma cholesterol measurement (mass/volume)Ordered By: Aura Sky on 09-04-2024 Cholesterol [Mass/Vol] 103 mg/dL <200 [facility] Comment on above: <200 mg/dL Desirable 200-240 mg/dL Borderline >240 mg/dL High Risk Serum or plasma creatinine m easurement (mass/volume)Ordered By: Aura Sky on 09-04-2024 Creatinine [Mass/Vol] 1.66 mg/dL High 0.70-1.30 [facility] Comment on above: The validity of the calculated GFR & GFRAA in patients over 70 years has not been determined. Clinical correlation is essential. Serum or plasma thyroid stim ulating hormone (TSH) measurement (units/volume)Ordered By: Aura Sky on 09-04-2024 TSH Qn 1.150 uIU/mL 0.358-3.740 [facility] Serum or plasma urea nitroge n measurement (mass/volume)Ordered By: Aura Sky on 09-04-2024 Urea nitrogen [Mass/Vol] 15 mg/dL 7-18 [facility] Sodium levelOrdered By: Aura Sky on 09-04-2024 Sodium [Moles/Vol] 138 mmol/L 136-145 [facility] TSH QnOrdered By: Aura lou on 09-04-2024 Thyroid Stimulating Hormone (TSH) 1.150 uIU/mL 0.358-3.740 [facility] Thyroid Stim Hormone (TSH)on 09-04-2024 TSH 1.150 uIU/mL Normal 0.358-3.740 [facility] Comment on above: Order Comment: 114.1 Performed By: #### L [id number], L500.4100, L503.0105, L501.9985 #### [facility] [address] [place], [address] Triglycerides measurementOrd ered By: Aura Sky on 09-04-2024 Triglyceride [Mass/Vol] 88 mg/dL <[address] [facility] Comment on above: The drugs N-Acetylcy steine and Metamizole may falsely depress this assay.Serum Triglycerides Reference Interval Normal <150 mg/dL Borderline high 150 - 199 mg/dL High 200 - 499 mg/dL Very High > or = 500 mg/dL Very low density lipoprotein (VLDL) cholesterol measurementOrdered By: Aura Sky on 09-04-2024 Very low density lipoprotein (VLDL) cholesterol measurement 18 mg/dL 5-40 [facility] VLDL Cholesterol 18 mg/dL 5-40 [facility] Vitamin B12on 09-04-2024 Cobalamin (Vitamin B12) [Mass/Vol] 408 pg/mL Normal 211-911 [facility] Comment on above: Order Comment: 126-1 Performed By: #### L [id number], L500.4100, L100.0500, L501.9520, L500.2500, L503.0105 #### [facility] [address] [place], [address] Vitamin B12 measurementOrder ed By: Aura Sky on 09-04-2024 Cobalamin (Vitamin B12) [Mass/Vol] 408 pg/mL 211-911 [facility] White blood cell (WBC) count Ordered By: Aura Sky on 09-04-2024 WBC (Bld) [#/Vol] 5.5 10*3/uL 4.4-11.0 [facility] CBC-Complete Blood Cnt No Di ffon 08-03-2024 Erythrocyte distribution width (RBC) [Ratio] 15.9 % High 11.6-14.6 [facility] Comment on above: Order Comment: 114.1 Performed By: #### L 501.9520, L500.4100, L503.0105, [id number] #### [facility] [address] [place], [address] Hematocrit (Bld) [Volume fraction] 29.8 % Low 40-54 [facility] Comment on above: Order Comment: 114.1 Performed By: #### L 501.9520, L500.4100, L503.0105, [id number] #### [facility] [address] [place], [address] Hemoglobin (Bld) [Mass/Vol] 9.2 g/dL Low 13.0-16.5 [facility] Comment on above: Order Comment: 114.1 Performed By: #### L 501.9520, L500.4100, L503.0105, [id number] #### [facility] [address] [place], [address] MCH (RBC) [Entitic mass] 27.8 pg Normal 27.0-32.0 [facility] Comment on above: Order Comment: 114.1 Performed By: #### L 501.9520, L500.4100, L503.0105, [id number] #### [facility] [address] [place], [address] MCHC (RBC) [Mass/Vol] 30.9 g/dL Low 32-36 [facility] Comment on above: Order Comment: 114.1 Performed By: #### L 501.9520, L500.4100, L503.0105, [id number] #### [facility] [address] [place], [address] MCV (RBC) [Entitic vol] 90.0 fL Normal 80-[address] [facility] Comment on above: Order Comment: 114.1 Performed By: #### L 501.9520, L500.4100, L503.0105, [id number] #### [facility] [address] [place], [address] Platelet mean volume (Bld) [Entitic vol] 10.7 fL Normal 6.2-12.0 [facility] Comment on above: Order Comment: 114.1 Performed By: #### L 501.9520, L500.4100, L503.0105, [id number] #### [facility] [address] [place], [address] Platelets (Bld) [#/Vol] 238 10*3/uL Normal 150-450 [facility] Comment on above: Order Comment: 114.1 Performed By: #### L 501.9520, L500.4100, L503.0105, [id number] #### [facility] [address] [place], [address] RBC (Bld) [#/Vol] 3.31 10*6/uL Low 4.6-6.2 [facility] Comment on above: Order Comment: 114.1 Performed By: #### L 501.9520, L500.4100, L503.0105, [id number] #### [facility] [address] [place], [address] RDW SD 53.1 fl High 35.1-43.9 [facility] Comment on above: Order Comment: 114.1 Performed By: #### L 501.9520, L500.4100, L503.0105, [id number] #### [facility] [address] [place], [address] WBC (Bld) [#/Vol] 8.4 10*3/uL Normal 4.4-11.0 [facility] Comment on above: Order Comment: 114.1 Performed By: #### L 501.9520, L500.4100, L503.0105, [id number] #### [facility] [address] [place], [place], [address] Erythrocyte distribution wid th (RBC) [Ratio]Ordered By: Aura Sky on 08-03-2024 Erythrocyte distribution width (RBC) [Entitic vol] 53.1 fL High 35.1-43.9 [facility] Erythrocyte distribution wid th ratioOrdered By: Aura Sky on 08-03-2024 Erythrocyte distribution width (RBC) [Ratio] 15.9 % High 11.6-14.6 [facility] Hematocrit Auto (Bld) [Volum e fraction]Ordered By: Aura Sky on 08-03-2024 Hematocrit (Bld) [Volume fraction] 29.8 % Low 40-54 [facility] Hemoglobin measurementOrdere d By: Aura Sky on 08-03-2024 Hemoglobin (Bld) [Mass/Vol] 9.2 g/dL Low 13.0-16.5 [facility] MCV (mean corpuscular volume ) determinationOrdered By: Aura Sky on 08-03-2024 MCV (RBC) [Entitic vol] 90.0 fL 80-[address] [facility] Mean corpuscular hemoglobin (MCH) determinationOrdered By: Aura Sky on 08-03-2024 MCH (RBC) [Entitic mass] 27.8 pg 27.0-32.0 [facility] Mean corpuscular hemoglobin concentration (MCHC) determinationOrdered By: Aura Sky on 08-03-2024 MCHC (RBC) [Mass/Vol] 30.9 g/dL Low 32-36 [facility] Mean platelet volume determi nationOrdered By: Aura Sky on 08-03-2024 Platelet mean volume (Bld) [Entitic vol] 10.7 fL 6.2-12.0 [facility] Platelet countOrdered By: Juanita Sky on 08-03-2024 Platelets (Bld) [#/Vol] 238 10*3/uL 150-450 [facility] RBC Auto (Bld) [#/Vol]Ordere d By: Aura Sky on 08-03-2024 RBC (Bld) [#/Vol] 3.31 10*6/uL Low 4.6-6.2 [facility] White blood cell (WBC) count Ordered By: Aura Sky on 08-03-2024 WBC (Bld) [#/Vol] 8.4 10*3/uL 4.4-11.0 [facility] CBC-Complete Blood Cnt No Di ffon 07-03-2024 Erythrocyte distribution width (RBC) [Ratio] 15.8 % High 11.6-14.6 [facility] Comment on above: Performed By: #### L 501.9520, L500.4100, L503.0105, [id number] #### [facility] [address] [place], [address] Hematocrit (Bld) [Volume fraction] 27.4 % Low 40-54 [facility] Comment on above: Performed By: #### L 501.9520, L500.4100, L503.0105, [id number] #### [facility] [address] [place], [address] Hemoglobin (Bld) [Mass/Vol] 8.9 g/dL Low 13.0-16.5 [facility] Comment on above: Performed By: #### L 501.9520, L500.4100, L503.0105, [id number] #### [facility] [address] [place], [address] MCH (RBC) [Entitic mass] 28.9 pg Normal 27.0-32.0 [facility] Comment on above: Performed By: #### L 501.9520, L500.4100, L503.0105, [id number] #### [facility] [address] [place], [id number] MCHC (RBC) [Mass/Vol] 32.5 g/dL Normal 32-36 [facility] Comment on above: Performed By: #### L 501.9520, L500.4100, L503.0105, [id number] #### [facility] [address] [place], [address] MCV (RBC) [Entitic vol] 89.0 fL Normal 80-[address] [facility] Comment on above: Performed By: #### L 501.9520, L500.4100, L503.0105, [id number] #### [facility] [address] [place], [address] Platelet mean volume (Bld) [Entitic vol] 10.7 fL Normal 6.2-12.0 [facility] Comment on above: Performed By: #### L 501.9520, L500.4100, L503.0105, [id number] #### [facility] [address] [place], [id number] Platelets (Bld) [#/Vol] 173 10*3/uL Normal 150-450 [facility] Comment on above: Performed By: #### L 501.9520, L500.4100, L503.0105, [id number] #### [facility] [address] [place], [id number] RBC (Bld) [#/Vol] 3.08 10*6/uL Low 4.6-6.2 [facility] Comment on above: Performed By: #### L 501.9520, L500.4100, L503.0105, [id number] #### [facility] [address] [place], [address] RDW SD 51.2 fl High 35.1-43.9 [facility] Comment on above: Performed By: #### L 501.9520, L500.4100, L503.0105, [id number] #### [facility] [address] [place], [address] WBC (Bld) [#/Vol] 5.1 10*3/uL Normal 4.4-11.0 [facility] Comment on above: Performed By: #### L 501.9520, L500.4100, L503.0105, [id number] #### [facility] [address] [place], [address] Hemoglobin A1con 06-05-2024 HbA1c (Bld) [Mass fraction] 6.1 % High 3.8-5.6 [facility] Comment on above: Order Comment: 114.1 Result Comment: Norm al < 5.7 % Prediabetic 5.7 - 6.4 % Diabetic >or= 6.5 % Please note range changes. Performed By: #### L 501.9520, L500.4100, L503.0105, [id number] #### [facility] [address] [place], [address] Lipid Profileon 06-05-2024 Cholesterol [Mass/Vol] 107 mg/dL Normal 200 [facility] Comment on above: Order Comment: 114.1 Result Comment: <200 mg/dL Desirable 200-240 mg/dL Borderline >240 mg/dL High Risk Performed By: #### L 501.9520, L500.4100, L503.0105, [id number] #### [facility] [address] [place], [address] Cholesterol in HDL [Mass/Vol] 45 mg/dL Normal [facility] Comment on above: Order Comment: 114.1 Result Comment: The drugs N-Acetylcysteine and Metamizole may falsely depress this assay. Reference Range HDL <40 mg/dL Low HDL Cholesterol HDL >or= 60 mg/dL High HDL Cholesterol Performed By: #### L 501.9520, L500.4100, L503.0105, L501.9985 #### [facility] [address] [place], [address] Cholesterol in LDL [Mass/Vol] 48 mg/dL Normal 0-130 [facility] Comment on above: Order Comment: 114.1 Performed By: #### L 501.9520, L500.4100, L503.0105, [id number] #### [facility] [address] [place], [address] Cholesterol in VLDL [Mass/Vol] 14 mg/dL Normal 5-40 [facility] Comment on above: Order Comment: 114.1 Performed By: #### L 501.9520, L500.4100, L503.0105, [id number] #### [facility] [address] [place], [address] Triglyceride [Mass/Vol] 70 mg/dL Normal [facility] Comment on above: Order Comment: 114.1 Result Comment: The drugs N-Acetylcysteine and Metamizole may falsely depress this assay. Serum Triglycerides Reference Interval Normal <150 mg/dL Borderline high 150 - 199 mg/dL High 200 - 499 mg/dL Very High > or = 500 mg/dL Performed By: #### L 501.9520, L500.4100, L503.0105, L501.9985 #### [facility] [address] [place], [address] Thyroid Stim Hormone (TSH)on 06-05-2024 TSH 1.070 uIU/mL Normal 0.358-3.740 [facility] Comment on above: Order Comment: 114.1 Performed By: #### L 501.9520, L500.4100, L503.0105, [id number] #### [facility] [address] [place], [address] Vitamin B12on 06-05-2024 Cobalamin (Vitamin B12) [Mass/Vol] 500 pg/mL Normal 211-911 [facility] Comment on above: Order Comment: 114.1 Performed By: #### L 501.9520, L500.4100, L503.0105, [id number] #### [facility] [address] [place], [address] Basic Metabolic Profile (BMP )on 06-02-2024 BUN/CRE 10.5 RATIO Normal 10-20 [facility] Comment on above: Order Comment: 126.1 Performed By: #### L 500.2500, L100.0500 #### [facility] [address] [place], [address] CA,Total 8.0 mg/dL Low 8.5-10.1 [facility] Comment on above: Order Comment: 126.1 Performed By: #### L 500.2500, L100.0500 #### [facility] [address] [place], [address] Chloride [Moles/Vol] 94 mmol/L Low 98-107 [facility] Comment on above: Order Comment: 126.1 Performed By: #### L 500.2500, L100.0500 #### [facility] [address] [place], [address] CO2 [Moles/Vol] 30.0 mmol/L Normal 21.0-32.0 [facility] Comment on above: Order Comment: 126.1 Performed By: #### L 500.2500, L100.0500 #### [facility] [address] [place], [address] Creatinine [Mass/Vol] 1.52 mg/dL High 0.70-1.30 [facility] Comment on above: Order Comment: 126.1 Result Comment: The validity of the calculated GFR GFRAA in patients over 70 years has not been determined. Clinical correlation is essential. Performed By: #### L 500.2500, L100.0500 #### [facility] [address] [place], [address] EST GFR - AA 57 mL/min Low >60 [facility] Comment on above: Order Comment: 126.1 Result Comment: Afri can [place] GFR Calc Performed By: #### L 500.2500, L100.0500 #### [facility] [address] [place], [address] GAP 6 Normal 5-15 [facility] Comment on above: Order Comment: 126.1 Performed By: #### L 500.2500, L100.0500 #### [facility] [address] [place], [address] GFR/1.73 sq M.predicted among non-blacks MDRD (S/P/Bld) [Vol rate/Area] 47 mL/min/{1.73_m2} Low >60 [facility] Comment on above: Order Comment: 126.1 Result Comment: Non- GFR Calc Performed By: #### L 500.2500, L100.0500 #### [facility] [address] [place], [address] Glucose [Mass/Vol] 114 mg/dL High 74-106 [facility] Comment on above: Order Comment: 126.1 Result Comment: Fast ing Glucose result from 100 to 125 mg/dL suggests IMPAIRED HOMEOSTASIS per A.D.A. criteria. Performed By: #### L 500.2500, L100.0500 #### [facility] [address] [place], [address] Potassium [Moles/Vol] 4.0 mmol/L Normal 3.5-5.1 [facility] Comment on above: Order Comment: 126.1 Performed By: #### L 500.2500, L100.0500 #### [facility] [address] [place], [address] Sodium [Moles/Vol] 129 mmol/L Low 136-145 [facility] Comment on above: Order Comment: 126.1 Performed By: #### L 500.2500, L100.0500 #### [facility] [address] [place], [address] Urea nitrogen [Mass/Vol] 16 mg/dL Normal 7-18 [facility] Comment on above: Order Comment: 126.1 Performed By: #### L 500.2500, L100.0500 #### [facility] [address] [place], [address] CBC-Complete Blood Cnt No Di ffon 06-02-2024 Erythrocyte distribution width (RBC) [Ratio] 14.2 % Normal 11.6-14.6 [facility] Comment on above: Order Comment: 126.1 Performed By: #### L 500.2500, L100.0500 #### [facility] [address] [place], [address] Hematocrit (Bld) [Volume fraction] 30.2 % Low 40-54 [facility] Comment on above: Order Comment: 126.1 Performed By: #### L 500.2500, L100.0500 #### [facility] [address] [place], [address] Hemoglobin (Bld) [Mass/Vol] 10.0 g/dL Low 13.0-16.5 [facility] Comment on above: Order Comment: 126.1 Performed By: #### L 500.2500, L100.0500 #### [facility] [address] [place], [address] MCH (RBC) [Entitic mass] 28.2 pg Normal 27.0-32.0 [facility] Comment on above: Order Comment: 126.1 Performed By: #### L 500.2500, L100.0500 #### [facility] [address] [place], [address] MCHC (RBC) [Mass/Vol] 33.1 g/dL Normal 32-36 [facility] Comment on above: Order Comment: 126.1 Performed By: #### L 500.2500, L100.0500 #### [facility] [address] [place], [address] MCV (RBC) [Entitic vol] 85.3 fL Normal 80-[address] [facility] Comment on above: Order Comment: 126.1 Performed By: #### L 500.2500, L100.0500 #### [facility] [address] [place], [id number] Platelet mean volume (Bld) [Entitic vol] 10.5 fL Normal 6.2-12.0 [facility] Comment on above: Order Comment: 126.1 Performed By: #### L 500.2500, L100.0500 #### [facility] [address] [place], [address] Platelets (Bld) [#/Vol] 193 10*3/uL Normal 150-450 [facility] Comment on above: Order Comment: 126.1 Performed By: #### L 500.2500, L100.0500 #### [facility] [address] [place], [address] RBC (Bld) [#/Vol] 3.54 10*6/uL Low 4.6-6.2 [facility] Comment on above: Order Comment: 126.1 Performed By: #### L 500.2500, L100.0500 #### [facility] [address] [place], [address] RDW SD 44.0 fl High 35.1-43.9 [facility] Comment on above: Order Comment: 126.1 Performed By: #### L 500.2500, L100.0500 #### [facility] [address] [place], [address] WBC (Bld) [#/Vol] 5.5 10*3/uL Normal 4.4-11.0 [facility] Comment on above: Order Comment: 126.1 Performed By: #### L 500.2500, L100.0500 #### [facility] [address] [place], [place], [address] Basophil percentageOrdered B y: Aura Sky on 11-02-2023 Chloride [Moles/Vol] 102 mmol/L 98-107 [facility] Glucose [Mass/Vol] 128 mg/dL 74-106 [facility] Comment on above: Fasting Glucose resu lt greater than or equal to 126 mg/dL suggests DIABETES MELLITUS per A.D.A. criteria. Hemoglobin (Bld) [Mass/Vol] 9.3 g/dL 13.0-16.5 [facility] Potassium [Moles/Vol] 3.8 mmol/L 3.5-5.1 [facility] Sodium [Moles/Vol] 137 mmol/L 136-145 [facility] WBC (Bld) [#/Vol] 6.9 10*3/uL 4.4-11.0 [facility] Determination of erythrocyte mean corpuscular volume (MCV)Ordered By: Aura Sky on 11-02-2023 MCV (RBC) [Entitic vol] 93.2 fL 80-[address] [facility] Erythrocyte distribution wid th ratioOrdered By: Aura Sky on 11-02-2023 Erythrocyte distribution width (RBC) [Ratio] 14.2 % 11.6-14.6 [facility] Erythrocyte distribution wid th standard deviationOrdered By: Aura Sky on 11-02-2023 Erythrocyte distribution width (RBC) [Entitic vol] 48.0 fL 35.1-43.9 [facility] Hematocrit Auto (Bld) [Volum e fraction]Ordered By: Aura Sky on 11-02-2023 Hematocrit (Bld) [Volume fraction] 30.3 % 40-54 [facility] - Chemistry and C hemistry - challengeOrdered By: Aura Sky on 11-02-2023 CO2 [Moles/Vol] 29.0 mmol/L 21.0-32.0 [facility] Cobalamin (Vitamin B12) [Mass/Vol] 463 pg/mL 211-911 [facility] Urea nitrogen/Creatinine [Mass ratio] 13.0 mg/mg 10-20 [facility] - Hematology and Cell countsOrdered By: Aura Sky on 11-02-2023 MCH (RBC) [Entitic mass] 28.6 pg 27.0-32.0 [facility] MCHC (RBC) [Mass/Vol] 30.7 g/dL 32-36 [facility] Platelet mean volume (Bld) [Entitic vol] 11.0 fL 6.2-12.0 [facility] Platelets (Bld) [#/Vol] 236 10*3/uL 150-450 [facility] No Panel InformationOrdered By: Aura Sky on 11-02-2023 Estimated GFR (MDRD) Amer 46 mL/min >60 [facility] Comment on above: GFR Calc Estimated GFR (MDRD) Non-Af Amer 38 mL/min >60 [facility] Comment on above: Non- GFR Calc RBC Auto (Bld) [#/Vol]Ordere d By: Aura Sky on 11-02-2023 RBC (Bld) [#/Vol] 3.25 10*6/uL 4.6-6.2 [facility] Serum or plasma calcium maria l urement (mass/volume)Ordered By: Aura Sky on 11-02-2023 Calcium [Mass/Vol] 8.4 mg/dL 8.5-10.1 [facility] Serum or plasma creatinine m easurement (mass/volume)Ordered By: Aura Sky on 11-02-2023 Creatinine [Mass/Vol] 1.85 mg/dL 0.70-1.30 [facility] Comment on above: The validity of the calculated GFR & GFRAA in patients over 70 years has not been determined. Clinical correlation is essential. Serum or plasma thyroid stim ulating hormone (TSH) measurement (units/volume)Ordered By: Aura Sky on 11-02-2023 TSH Qn 1.19 uIU/mL 0.358-3.74 [facility] Serum or plasma urea nitroge n measurement (mass/volume)Ordered By: Aura Sky on 11-02-2023 Urea nitrogen [Mass/Vol] 24 mg/dL 7-18 [facility] Thin prep Papanicolaou smear with manual screeningOrdered By: Aura Sky on 11-02-2023 Thin prep Papanicolaou smear with manual screening 6 5-15 [facility] Whole blood hemoglobin A1c/t otal hemoglobin ratio (mass fraction)Ordered By: Aura Sky on 11-02-2023 HbA1c (Bld) [Mass fraction] 5.7 % 3.8-5.6 [facility] Comment on above: Normal < 5.7 % Predi abetic 5.7 - 6.4 % Diabetic >or= 6.5 % Please note range changes. Basophil percentageOrdered B y: Aura Sky on 10-27-2023 Hemoglobin (Bld) [Mass/Vol] 9.5 g/dL 13.0-16.5 [facility] WBC (Bld) [#/Vol] 6.3 10*3/uL 4.4-11.0 [facility] Determination of erythrocyte mean corpuscular volume (MCV)Ordered By: Aura Sky on 10-27-2023 MCV (RBC) [Entitic vol] 92.4 fL 80-94 [facility] Erythrocyte distribution wid th ratioOrdered By: Aura Sky on 10-27-2023 Erythrocyte distribution width (RBC) [Ratio] 14.0 % 11.6-14.6 [facility] Erythrocyte distribution wid th standard deviationOrdered By: Aura Sky on 10-27-2023 Erythrocyte distribution width (RBC) [Entitic vol] 47.2 fL 35.1-43.9 [facility] Hematocrit Auto (Bld) [Volum e fraction]Ordered By: Aura Sky on 10-27-2023 Hematocrit (Bld) [Volume fraction] 30.4 % 40-54 [facility] - Hematology and Cell countsOrdered By: Aura Sky on 10-27-2023 MCH (RBC) [Entitic mass] 28.9 pg 27.0-32.0 [facility] MCHC (RBC) [Mass/Vol] 31.3 g/dL 32-36 [facility] Platelet mean volume (Bld) [Entitic vol] 10.7 fL 6.2-12.0 [facility] Platelets (Bld) [#/Vol] 280 10*3/uL 150-450 [facility] RBC Auto (Bld) [#/Vol]Ordere d By: Aura Sky on 10-27-2023 RBC (Bld) [#/Vol] 3.29 10*6/uL 4.6-6.2 [facility] Basophil percentageOrdered B y: Aura Sky on 09-29-2023 Hemoglobin (Bld) [Mass/Vol] 8.9 g/dL 13.0-16.5 [facility] WBC (Bld) [#/Vol] 6.0 10*3/uL 4.4-11.0 [facility] Determination of erythrocyte mean corpuscular volume (MCV)Ordered By: Aura Sky on 09-29-2023 MCV (RBC) [Entitic vol] 92.1 fL 80-[address] [facility] Erythrocyte distribution wid th ratioOrdered By: Aura Sky on 09-29-2023 Erythrocyte distribution width (RBC) [Ratio] 14.0 % 11.6-14.6 [facility] Erythrocyte distribution wid th standard deviationOrdered By: Aura Sky on 09-29-2023 Erythrocyte distribution width (RBC) [Entitic vol] 47.3 fL 35.1-43.9 [facility] Hematocrit Auto (Bld) [Volum e fraction]Ordered By: Aura Sky on 09-29-2023 Hematocrit (Bld) [Volume fraction] 27.8 % 40-54 [facility] Laboratory - Hematology and Cell countsOrdered By: Aura Sky on 09-29-2023 MCH (RBC) [Entitic mass] 29.5 pg 27.0-32.0 [facility] MCHC (RBC) [Mass/Vol] 32.0 g/dL 32-36 [facility] Platelet mean volume (Bld) [Entitic vol] 10.6 fL 6.2-12.0 [facility] Platelets (Bld) [#/Vol] 251 10*3/uL 150-450 [facility] RBC Auto (Bld) [#/Vol]Ordere d By: Aura Sky on 09-29-2023 RBC (Bld) [#/Vol] 3.02 10*6/uL 4.6-6.2 [facility] Basophil percentageOrdered B y: Aura Sky on 09-03-2023 Chloride [Moles/Vol] 105 mmol/L 98-107 [facility] Glucose [Mass/Vol] 102 mg/dL 74-106 [facility] Comment on above: Fasting Glucose resu lt from 100 to 125 mg/dL suggests IMPAIRED HOMEOSTASIS per A.D.A. criteria. Hemoglobin (Bld) [Mass/Vol] 9.2 g/dL 13.0-16.5 [facility] Potassium [Moles/Vol] 4.4 mmol/L 3.5-5.1 [facility] Sodium [Moles/Vol] 136 mmol/L 136-145 [facility] WBC (Bld) [#/Vol] 6.3 10*3/uL 4.4-11.0 [facility] Determination of erythrocyte mean corpuscular volume (MCV)Ordered By: Aura Sky on 09-03-2023 MCV (RBC) [Entitic vol] 90.7 fL 80-[address] [facility] Erythrocyte distribution wid th ratioOrdered By: Aura Sky on 09-03-2023 Erythrocyte distribution width (RBC) [Ratio] 13.3 % 11.6-14.6 [facility] Erythrocyte distribution wid th standard deviationOrdered By: Aura Sky on 09-03-2023 Erythrocyte distribution width (RBC) [Entitic vol] 44.0 fL 35.1-43.9 [facility] Hematocrit Auto (Bld) [Volum e fraction]Ordered By: Aura Sky on 09-03-2023 Hematocrit (Bld) [Volume fraction] 29.2 % 40-54 [facility] Laboratory - Chemistry and C hemistry - challengeOrdered By: Aura Sky on 09-03-2023 CO2 [Moles/Vol] 29.0 mmol/L 21.0-32.0 [facility] Urea nitrogen/Creatinine [Mass ratio] 14.0 mg/mg 10-20 [facility] Laboratory - Hematology and Cell countsOrdered By: Aura Sky on 09-03-2023 MCH (RBC) [Entitic mass] 28.6 pg 27.0-32.0 [facility] MCHC (RBC) [Mass/Vol] 31.5 g/dL 32-36 [facility] Platelets (Bld) [#/Vol] 244 10*3/uL 150-450 [facility] No Panel InformationOrdered By: Aura Sky on 09-03-2023 Estimated GFR (MDRD) Amer 50 mL/min >60 [facility] Comment on above: GFR Calc Estimated GFR (MDRD) Non-Af Amer 41 mL/min >60 [facility] Comment on above: Non- GFR Calc Platelet mean volume Joseph-Ec ker (Bld) [Entitic vol]Ordered By: Aura Sky on 09-03-2023 Platelet mean volume (Bld) [Entitic vol] 10.7 fL 6.2-12.0 [facility] RBC Auto (Bld) [#/Vol]Ordere d By: Aura Sky on 09-03-2023 RBC (Bld) [#/Vol] 3.22 10*6/uL 4.6-6.2 [facility] Serum or plasma calcium maria l urement (mass/volume)Ordered By: Aura Sky on 09-03-2023 Calcium [Mass/Vol] 8.4 mg/dL 8.5-10.1 [facility] Serum or plasma creatinine m easurement (mass/volume)Ordered By: Aura Sky on 09-03-2023 Creatinine [Mass/Vol] 1.72 mg/dL 0.70-1.30 [facility] Comment on above: The validity of the calculated GFR & GFRAA in patients over 70 years has not been determined. Clinical correlation is essential. Serum or plasma urea nitroge n measurement (mass/volume)Ordered By: Aura Sky on 09-03-2023 Urea nitrogen [Mass/Vol] 24 mg/dL 7-18 [facility] Thin prep Papanicolaou smear with manual screeningOrdered By: Aura Sky on 09-03-2023 Thin prep Papanicolaou smear with manual screening 2 5-15 [facility] Basophil percentageOrdered B y: Aura Sky on 06-03-2023 Chloride [Moles/Vol] 100 mmol/L 98-107 [facility] Cholesterol [Mass/Vol] 132 mg/dL <200 [facility] Comment on above: <200 mg/dL Desirable 200-240 mg/dL Borderline >240 mg/dL High Risk Glucose [Mass/Vol] 85 mg/dL 74-106 [facility] Potassium [Moles/Vol] 4.3 mmol/L 3.5-5.1 [facility] Sodium [Moles/Vol] 136 mmol/L 136-145 [facility] Triglyceride [Mass/Vol] 81 mg/dL <[address] [facility] Comment on above: The drugs N-Acetylcy steine and Metamizole may falsely depress this assay.Serum Triglycerides Reference Interval Normal <150 mg/dL Borderline high 150 - 199 mg/dL High 200 - 499 mg/dL Very High > or = 500 mg/dL WBC (Bld) [#/Vol] 6.8 10*3/uL 4.4-11.0 [facility] Blood erythrocytes count (nu mber/volume)Ordered By: Aura Sky on 06-03-2023 RBC (Bld) [#/Vol] 4.00 10*6/uL 4.6-6.2 [facility] Blood hemoglobin measurement (mass/volume)Ordered By: Aura Sky on 06-03-2023 Hemoglobin (Bld) [Mass/Vol] 11.6 g/dL 13.0-16.5 [facility] Blood platelet mean volumeOr dered By: Aura Sky on 06-03-2023 Platelet mean volume (Bld) [Entitic vol] 10.9 fL 6.2-12.0 [facility] Determination of erythrocyte mean corpuscular volume (MCV)Ordered By: Aura Sky on 06-03-2023 MCV (RBC) [Entitic vol] 90.0 fL 80-[address] [facility] Hematocrit Auto (Bld) [Volum e fraction]Ordered By: Aura Sky on 06-03-2023 Hematocrit (Bld) [Volume fraction] 36.0 % 40-54 [facility] Laboratory - Chemistry and C hemistry - challengeOrdered By: Aura Sky on 06-03-2023 CO2 [Moles/Vol] 33.0 mmol/L 21.0-32.0 [facility] Cobalamin (Vitamin B12) [Mass/Vol] 1192 pg/mL 211-911 [facility] Urea nitrogen/Creatinine [Mass ratio] 11.8 mg/mg 10-20 [facility] Laboratory - Hematology and Cell countsOrdered By: Aura Sky on 06-03-2023 Erythrocyte distribution width (RBC) [Entitic vol] 45.4 fL 35.1-43.9 [facility] Erythrocyte distribution width (RBC) [Ratio] 13.9 % 11.6-14.6 [facility] MCH (RBC) [Entitic mass] 29.0 pg 27.0-32.0 [facility] MCHC Auto (RBC) [Mass/Vol]Or dered By: Aura Sky on 06-03-2023 MCHC (RBC) [Mass/Vol] 32.2 g/dL 32-36 [facility] No Panel InformationOrdered By: Aura Sky on 06-03-2023 Estimated GFR (MDRD) Amer 57 mL/min >60 [facility] Comment on above: GFR Calc Estimated GFR (MDRD) Non-Af Amer 47 mL/min >60 [facility] Comment on above: Non- GFR Calc Thyroid Stimulating Hormone (TSH) 2.12 uIU/mL 0.358-3.74 [facility] Platelets bldOrdered By: Doe Sky on 06-03-2023 Platelets (Bld) [#/Vol] 239 10*3/uL 150-450 [facility] Serum or plasma calcium maria l urement (mass/volume)Ordered By: Aura Sky on 06-03-2023 Calcium [Mass/Vol] 8.1 mg/dL 8.5-10.1 [facility] Serum or plasma cholesterol in HDL measurement (mass/volume)Ordered By: Aura Sky on 06-03-2023 Cholesterol in HDL [Mass/Vol] 51 mg/dL >40 [facility] Comment on above: The drugs N-Acetylcy steine and Metamizole may falsely depress this assay. Reference Range HDL <40 mg/dL Low HDL Cholesterol HDL >or= 60 mg/dL High HDL Cholesterol Serum or plasma cholesterol in VLDL measurement (mass/volume)Ordered By: Aura Sky on 06-03-2023 Cholesterol in VLDL [Mass/Vol] 16 mg/dL 5-40 [facility] Serum or plasma creatinine m easurement (mass/volume)Ordered By: Aura Sky on 06-03-2023 Creatinine [Mass/Vol] 1.53 mg/dL 0.70-1.30 [facility] Comment on above: The validity of the calculated GFR & GFRAA in patients over 70 years has not been determined. Clinical correlation is essential. Serum or plasma low density lipoprotein (LDL) cholesterol measurement (mass/volume)Ordered By: Aura Sky on 06-03-2023 Cholesterol in LDL [Mass/Vol] 65 mg/dL 0-130 [facility] Serum or plasma urea nitroge n measurement (mass/volume)Ordered By: Aura Sky on 06-03-2023 Urea nitrogen [Mass/Vol] 18 mg/dL 7-18 [facility] Thin prep Papanicolaou smear with manual screeningOrdered By: Aura Sky on 06-03-2023 Thin prep Papanicolaou smear with manual screening 3 5-15 [facility] Whole blood hemoglobin A1c/t otal hemoglobin ratio (mass fraction)Ordered By: Aura Sky on 06-03-2023 HbA1c (Bld) [Mass fraction] 5.9 % 3.8-5.6 [facility] Comment on above: Normal < 5.7 % Predi abetic 5.7 - 6.4 % Diabetic >or= 6.5 % Please note range changes. Basophil percentageOrdered B y: Aura Sky on 03-03-2023 Chloride [Moles/Vol] 103 mmol/L 98-107 [facility] Glucose [Mass/Vol] 81 mg/dL 74-106 [facility] Potassium [Moles/Vol] 4.2 mmol/L 3.5-5.1 [facility] Sodium [Moles/Vol] 136 mmol/L 136-145 [facility] WBC (Bld) [#/Vol] 5.7 10*3/uL 4.4-11.0 [facility] Blood erythrocytes count (nu mber/volume)Ordered By: Aura Sky on 03-03-2023 RBC (Bld) [#/Vol] 3.63 10*6/uL 4.6-6.2 [facility] Blood hemoglobin measurement (mass/volume)Ordered By: Aura Sky on 03-03-2023 Hemoglobin (Bld) [Mass/Vol] 10.4 g/dL 13.0-16.5 [facility] Blood platelet mean volumeOr dered By: Aura Sky on 03-03-2023 Platelet mean volume (Bld) [Entitic vol] 10.7 fL 6.2-12.0 [facility] Determination of erythrocyte mean corpuscular volume (MCV)Ordered By: Aura Sky on 07-26-2023 MCV (RBC) [Entitic vol] 90.4 fL 80-[address] [facility] Hematocrit Auto (Bld) [Volum e fraction]Ordered By: Aura Sky on 03-03-2023 Hematocrit (Bld) [Volume fraction] 32.8 % 40-54 [facility] Laboratory - Chemistry and C hemistry - challengeOrdered By: Aura Sky on 03-03-2023 CO2 [Moles/Vol] 31.0 mmol/L 21.0-32.0 [facility] Urea nitrogen/Creatinine [Mass ratio] 9.4 mg/mg 10-20 [facility] Laboratory - Hematology and Cell countsOrdered By: Aura Sky on 03-03-2023 Erythrocyte distribution width (RBC) [Entitic vol] 43.0 fL 35.1-43.9 [facility] Erythrocyte distribution width (RBC) [Ratio] 13.0 % 11.6-14.6 [facility] MCH (RBC) [Entitic mass] 28.7 pg 27.0-32.0 [facility] MCHC Auto (RBC) [Mass/Vol]Or dered By: Aura Sky on 03-03-2023 MCHC (RBC) [Mass/Vol] 31.7 g/dL 32-36 [facility] No Panel InformationOrdered By: Aura Sky on 03-03-2023 Estimated GFR (MDRD) Amer 54 mL/min >60 [facility] Comment on above: GFR Calc Estimated GFR (MDRD) Non-Af Amer 45 mL/min >60 [facility] Comment on above: Non- GFR Calc Platelets bldOrdered By: Doe Sky on 03-03-2023 Platelets (Bld) [#/Vol] 233 10*3/uL 150-450 [facility] Serum or plasma calcium maria l urement (mass/volume)Ordered By: Aura Sky on 03-03-2023 Calcium [Mass/Vol] 8.4 mg/dL 8.5-10.1 [facility] Serum or plasma creatinine m easurement (mass/volume)Ordered By: Aura Sky on 03-03-2023 Creatinine [Mass/Vol] 1.60 mg/dL 0.70-1.30 [facility] Comment on above: The validity of the calculated GFR & GFRAA in patients over 70 years has not been determined. Clinical correlation is essential. Serum or plasma urea nitroge n measurement (mass/volume)Ordered By: Aura Sky on 03-03-2023 Urea nitrogen [Mass/Vol] 15 mg/dL 7-18 [facility] Thin prep Papanicolaou smear with manual screeningOrdered By: Aura Sky on 03-03-2023 Thin prep Papanicolaou smear with manual screening 2 5-15 [facility] Basophil percentageOrdered B y: Aura Sky on 01-01-2023 Chloride [Moles/Vol] 101 mmol/L 98-107 [facility] Glucose [Mass/Vol] 95 mg/dL 74-106 [facility] Potassium [Moles/Vol] 4.4 mmol/L 3.5-5.1 [facility] Sodium [Moles/Vol] 134 mmol/L 136-145 [facility] WBC (Bld) [#/Vol] 6.2 10*3/uL 4.4-11.0 [facility] Blood erythrocytes count (nu mber/volume)Ordered By: Aura Sky on 01-01-2023 RBC (Bld) [#/Vol] 3.74 10*6/uL 4.6-6.2 [facility] Blood hemoglobin measurement (mass/volume)Ordered By: Aura Sky on 01-01-2023 Hemoglobin (Bld) [Mass/Vol] 11.0 g/dL 13.0-16.5 [facility] Blood platelet mean volumeOr dered By: Aura Sky on 01-01-2023 Platelet mean volume (Bld) [Entitic vol] 10.3 fL 6.2-12.0 [facility] Determination of erythrocyte mean corpuscular volume (MCV)Ordered By: Aura Sky on 01-01-2023 MCV (RBC) [Entitic vol] 90.4 fL 80-[address] [facility] Hematocrit Auto (Bld) [Volum e fraction]Ordered By: Aura Sky on 01-01-2023 Hematocrit (Bld) [Volume fraction] 33.8 % 40-54 [facility] Laboratory - Chemistry and C hemistry - challengeOrdered By: Aura Sky on 01-01-2023 CO2 [Moles/Vol] 31.0 mmol/L 21.0-32.0 [facility] Urea nitrogen/Creatinine [Mass ratio] 11.7 mg/mg 10-20 [facility] Laboratory - Hematology and Cell countsOrdered By: Aura Sky on 01-01-2023 Erythrocyte distribution width (RBC) [Entitic vol] 44.6 fL 35.1-43.9 [facility] Erythrocyte distribution width (RBC) [Ratio] 13.6 % 11.6-14.6 [facility] MCH (RBC) [Entitic mass] 29.4 pg 27.0-32.0 [facility] MCHC Auto (RBC) [Mass/Vol]Or dered By: Aura Sky on 01-01-2023 MCHC (RBC) [Mass/Vol] 32.5 g/dL 32-36 [facility] No Panel InformationOrdered By: Aura Sky on 01-01-2023 Estimated GFR (MDRD) Amer 53 mL/min >60 [facility] Comment on above: GFR Calc Estimated GFR (MDRD) Non-Af Amer 44 mL/min >60 [facility] Comment on above: Non- GFR Calc Platelets bldOrdered By: Doe Sky on 01-01-2023 Platelets (Bld) [#/Vol] 225 10*3/uL 150-450 [facility] Serum or plasma calcium maria l urement (mass/volume)Ordered By: Aura Sky on 01-01-2023 Calcium [Mass/Vol] 8.3 mg/dL 8.5-10.1 [facility] Serum or plasma creatinine m easurement (mass/volume)Ordered By: Aura Sky on 01-01-2023 Creatinine [Mass/Vol] 1.63 mg/dL 0.70-1.30 [facility] Comment on above: The validity of the calculated GFR & GFRAA in patients over 70 years has not been determined. Clinical correlation is essential. Serum or plasma urea nitroge n measurement (mass/volume)Ordered By: Aura Sky on 01-01-2023 Urea nitrogen [Mass/Vol] 19 mg/dL 7-18 [facility] Thin prep Papanicolaou smear with manual screeningOrdered By: Aura Sky on 01-01-2023 Thin prep Papanicolaou smear with manual screening 2 5-15 [facility] Basophil percentageOrdered B y: Aura Sky on 12-02-2022 Chloride [Moles/Vol] 99 mmol/L 98-107 [facility] Cholesterol [Mass/Vol] 132 mg/dL <200 [facility] Comment on above: <200 mg/dL Desirable 200-240 mg/dL Borderline >240 mg/dL High Risk Glucose [Mass/Vol] 103 mg/dL 74-106 [facility] Comment on above: Fasting Glucose resu lt from 100 to 125 mg/dL suggests IMPAIRED HOMEOSTASIS per A.D.A. criteria. Potassium [Moles/Vol] 4.2 mmol/L 3.5-5.1 [facility] Sodium [Moles/Vol] 133 mmol/L 136-145 [facility] Triglyceride [Mass/Vol] 81 mg/dL <[address] [facility] Comment on above: The drugs N-Acetylcy steine and Metamizole may falsely depress this assay.Serum Triglycerides Reference Interval Normal <150 mg/dL Borderline high 150 - 199 mg/dL High 200 - 499 mg/dL Very High > or = 500 mg/dL WBC (Bld) [#/Vol] 6.2 10*3/uL 4.4-11.0 [facility] Blood erythrocytes count (nu mber/volume)Ordered By: Aura Sky on 12-02-2022 RBC (Bld) [#/Vol] 3.89 10*6/uL 4.6-6.2 [facility] Blood hemoglobin measurement (mass/volume)Ordered By: Aura Sky on 12-02-2022 Hemoglobin (Bld) [Mass/Vol] 11.5 g/dL 13.0-16.5 [facility] Blood platelet mean volumeOr dered By: Aura Sky on 12-02-2022 Platelet mean volume (Bld) [Entitic vol] 10.2 fL 6.2-12.0 [facility] Determination of erythrocyte mean corpuscular volume (MCV)Ordered By: Aura Sky on 12-02-2022 MCV (RBC) [Entitic vol] 90.5 fL 80-94 [facility] Hematocrit Auto (Bld) [Volum e fraction]Ordered By: Aura Sky on 12-02-2022 Hematocrit (Bld) [Volume fraction] 35.2 % 40-54 [facility] Laboratory - Chemistry and C hemistry - challengeOrdered By: Aura Sky on 12-02-2022 CO2 [Moles/Vol] 30.0 mmol/L 21.0-32.0 [facility] Cobalamin (Vitamin B12) [Mass/Vol] 1096 pg/mL 211-911 [facility] Urea nitrogen/Creatinine [Mass ratio] 13.0 mg/mg 10-20 [facility] Laboratory - Hematology and Cell countsOrdered By: Aura Sky on 12-02-2022 Erythrocyte distribution width (RBC) [Entitic vol] 43.3 fL 35.1-43.9 [facility] Erythrocyte distribution width (RBC) [Ratio] 13.2 % 11.6-14.6 [facility] MCH (RBC) [Entitic mass] 29.6 pg 27.0-32.0 [facility] MCHC Auto (RBC) [Mass/Vol]Or dered By: Aura Sky on 12-02-2022 MCHC (RBC) [Mass/Vol] 32.7 g/dL 32-36 [facility] No Panel InformationOrdered By: Aura Sky on 12-02-2022 Estimated GFR (MDRD) Amer 57 mL/min >60 [facility] Comment on above: GFR Calc Estimated GFR (MDRD) Non-Af Amer 47 mL/min >60 [facility] Comment on above: Non- GFR Calc Thyroid Stimulating Hormone (TSH) 1.12 uIU/mL 0.358-3.74 [facility] Platelets bldOrdered By: Doe Sky on 12-02-2022 Platelets (Bld) [#/Vol] 278 10*3/uL 150-450 [facility] Serum or plasma calcium maria l urement (mass/volume)Ordered By: Aura Sky on 12-02-2022 Calcium [Mass/Vol] 8.3 mg/dL 8.5-10.1 [facility] Serum or plasma cholesterol in HDL measurement (mass/volume)Ordered By: Aura Sky on 12-02-2022 Cholesterol in HDL [Mass/Vol] 46 mg/dL >40 [facility] Comment on above: The drugs N-Acetylcy steine and Metamizole may falsely depress this assay. Reference Range HDL <40 mg/dL Low HDL Cholesterol HDL >or= 60 mg/dL High HDL Cholesterol Serum or plasma cholesterol in VLDL measurement (mass/volume)Ordered By: Aura Sky on 12-02-2022 Cholesterol in VLDL [Mass/Vol] 16 mg/dL 5-40 [facility] Serum or plasma creatinine m easurement (mass/volume)Ordered By: Aura Sky on 12-02-2022 Creatinine [Mass/Vol] 1.54 mg/dL 0.70-1.30 [facility] Comment on above: The validity of the calculated GFR & GFRAA in patients over 70 years has not been determined. Clinical correlation is essential. Serum or plasma low density lipoprotein (LDL) cholesterol measurement (mass/volume)Ordered By: Aura Sky on 12-02-2022 Cholesterol in LDL [Mass/Vol] 70 mg/dL 0-130 [facility] Serum or plasma urea nitroge n measurement (mass/volume)Ordered By: Aura Sky on 12-02-2022 Urea nitrogen [Mass/Vol] 20 mg/dL 7-18 [facility] Thin prep Papanicolaou smear with manual screeningOrdered By: Aura Sky on 12-02-2022 Thin prep Papanicolaou smear with manual screening 4 5-15 [facility] Whole blood hemoglobin A1c/t otal hemoglobin ratio (mass fraction)Ordered By: Aura Sky on 12-02-2022 HbA1c (Bld) [Mass fraction] 5.9 % 3.8-5.6 [facility] Comment on above: Normal < 5.7 % Predi abetic 5.7 - 6.4 % Diabetic >or= 6.5 % Please note range changes. Basophil percentageOrdered B y: Aura Sky on 11-02-2022 Chloride [Moles/Vol] 98 mmol/L 98-107 [facility] Glucose [Mass/Vol] 146 mg/dL 74-106 [facility] Comment on above: Fasting Glucose resu lt greater than or equal to 126 mg/dL suggests DIABETES MELLITUS per A.D.A. criteria. Potassium [Moles/Vol] 4.1 mmol/L 3.5-5.1 [facility] Sodium [Moles/Vol] 131 mmol/L 136-145 [facility] WBC (Bld) [#/Vol] 5.9 10*3/uL 4.4-11.0 [facility] Blood erythrocytes count (nu mber/volume)Ordered By: Aura Sky on 11-02-2022 RBC (Bld) [#/Vol] 3.51 10*6/uL 4.6-6.2 [facility] Blood hemoglobin measurement (mass/volume)Ordered By: Aura Sky on 11-02-2022 Hemoglobin (Bld) [Mass/Vol] 10.2 g/dL 13.0-16.5 [facility] Blood platelet mean volumeOr dered By: Aura Sky on 11-02-2022 Platelet mean volume (Bld) [Entitic vol] 10.9 fL 6.2-12.0 [facility] Determination of erythrocyte mean corpuscular volume (MCV)Ordered By: Aura Sky on 11-02-2022 MCV (RBC) [Entitic vol] 88.3 fL 80-[address] [facility] Hematocrit Auto (Bld) [Volum e fraction]Ordered By: Aura Sky on 11-02-2022 Hematocrit (Bld) [Volume fraction] 31.0 % 40-54 [facility] Laboratory - Chemistry and C hemistry - challengeOrdered By: Aura Sky on 11-02-2022 CO2 [Moles/Vol] 29.0 mmol/L 21.0-32.0 [facility] Urea nitrogen/Creatinine [Mass ratio] 10.5 mg/mg 10-20 [facility] Laboratory - Hematology and Cell countsOrdered By: Aura Sky on 11-02-2022 Erythrocyte distribution width (RBC) [Entitic vol] 41.5 fL 35.1-43.9 [facility] Erythrocyte distribution width (RBC) [Ratio] 12.9 % 11.6-14.6 [facility] MCH (RBC) [Entitic mass] 29.1 pg 27.0-32.0 [facility] MCHC Auto (RBC) [Mass/Vol]Or dered By: Aura Sky on 11-02-2022 MCHC (RBC) [Mass/Vol] 32.9 g/dL 32-36 [facility] No Panel InformationOrdered By: Aura Sky on 11-02-2022 Estimated GFR (MDRD) Amer 62 mL/min >60 [facility] Comment on above: GFR Calc Estimated GFR (MDRD) Non-Af Amer 51 mL/min >60 [facility] Comment on above: Non- GFR Calc Platelets bldOrdered By: Doe Sky on 11-02-2022 Platelets (Bld) [#/Vol] 230 10*3/uL 150-450 [facility] Serum or plasma calcium maria l urement (mass/volume)Ordered By: Aura Sky on 11-02-2022 Calcium [Mass/Vol] 8.0 mg/dL 8.5-10.1 [facility] Serum or plasma creatinine m easurement (mass/volume)Ordered By: Aura Sky on 11-02-2022 Creatinine [Mass/Vol] 1.43 mg/dL 0.70-1.30 [facility] Comment on above: The validity of the calculated GFR & GFRAA in patients over 70 years has not been determined. Clinical correlation is essential. Serum or plasma urea nitroge n measurement (mass/volume)Ordered By: Aura Sky on 11-02-2022 Urea nitrogen [Mass/Vol] 15 mg/dL 7-18 [facility] Thin prep Papanicolaou smear with manual screeningOrdered By: Aura Sky on 11-02-2022 Thin prep Papanicolaou smear with manual screening 4 5-15 [facility] Basophil percentageOrdered B y: Aura Sky on 10-07-2022 Chloride [Moles/Vol] 101 mmol/L 98-107 [facility] Glucose [Mass/Vol] 79 mg/dL 74-106 [facility] Potassium [Moles/Vol] 4.6 mmol/L 3.5-5.1 [facility] Sodium [Moles/Vol] 133 mmol/L 136-145 [facility] WBC (Bld) [#/Vol] 6.2 10*3/uL 4.4-11.0 [facility] Blood erythrocytes count (nu mber/volume)Ordered By: Aura Sky on 10-07-2022 RBC (Bld) [#/Vol] 3.69 10*6/uL 4.6-6.2 [facility] Blood hemoglobin measurement (mass/volume)Ordered By: Aura Sky on 10-07-2022 Hemoglobin (Bld) [Mass/Vol] 10.8 g/dL 13.0-16.5 [facility] Blood platelet mean volumeOr dered By: Aura Sky on 10-07-2022 Platelet mean volume (Bld) [Entitic vol] 10.8 fL 6.2-12.0 [facility] Determination of erythrocyte mean corpuscular volume (MCV)Ordered By: Aura Sky on 10-07-2022 MCV (RBC) [Entitic vol] 89.2 fL 80-[address] [facility] Hematocrit Auto (Bld) [Volum e fraction]Ordered By: Aura Sky on 10-07-2022 Hematocrit (Bld) [Volume fraction] 32.9 % 40-54 [facility] Laboratory - Chemistry and C hemistry - challengeOrdered By: Aura Sky on 10-07-2022 CO2 [Moles/Vol] 26.0 mmol/L 21.0-32.0 [facility] Urea nitrogen/Creatinine [Mass ratio] 13.1 mg/mg 10-20 [facility] Laboratory - Hematology and Cell countsOrdered By: Aura Sky on 10-07-2022 Erythrocyte distribution width (RBC) [Entitic vol] 42.9 fL 35.1-43.9 [facility] Erythrocyte distribution width (RBC) [Ratio] 13.2 % 11.6-14.6 [facility] MCH (RBC) [Entitic mass] 29.3 pg 27.0-32.0 [facility] MCHC Auto (RBC) [Mass/Vol]Or dered By: Aura Sky on 10-07-2022 MCHC (RBC) [Mass/Vol] 32.8 g/dL 32-36 [facility] No Panel InformationOrdered By: Aura Sky on 10-07-2022 Estimated GFR (MDRD) Amer 61 mL/min >60 [facility] Comment on above: GFR Calc Estimated GFR (MDRD) Non-Af Amer 50 mL/min >60 [facility] Comment on above: Non- GFR Calc Platelets bldOrdered By: Doe Sky on 10-07-2022 Platelets (Bld) [#/Vol] 215 10*3/uL 150-450 [facility] Serum or plasma calcium maria l urement (mass/volume)Ordered By: Aura Sky on 10-07-2022 Calcium [Mass/Vol] 8.1 mg/dL 8.5-10.1 [facility] Serum or plasma creatinine m easurement (mass/volume)Ordered By: Aura Sky on 10-07-2022 Creatinine [Mass/Vol] 1.45 mg/dL 0.70-1.30 [facility] Comment on above: The validity of the calculated GFR & GFRAA in patients over 70 years has not been determined. Clinical correlation is essential. Serum or plasma urea nitroge n measurement (mass/volume)Ordered By: Aura Sky on 10-07-2022 Urea nitrogen [Mass/Vol] 19 mg/dL 7-18 [facility] Thin prep Papanicolaou smear with manual screeningOrdered By: Aura Sky on 10-07-2022 Thin prep Papanicolaou smear with manual screening 6 5-15 [facility] Basophil percentageOrdered B y: Aura Sky on 10-05-2022 Chloride [Moles/Vol] 97 mmol/L 98-107 [facility] Glucose [Mass/Vol] 101 mg/dL 74-106 [facility] Comment on above: Fasting Glucose resu lt from 100 to 125 mg/dL suggests IMPAIRED HOMEOSTASIS per A.D.A. criteria. Potassium [Moles/Vol] 4.5 mmol/L 3.5-5.1 [facility] Comment on above: Slight Hemolysis, Re sult may be falsely increased. Sodium [Moles/Vol] 132 mmol/L 136-145 [facility] WBC (Bld) [#/Vol] 8.1 10*3/uL 4.4-11.0 [facility] Blood erythrocytes count (nu mber/volume)Ordered By: Aura Sky on 10-05-2022 RBC (Bld) [#/Vol] 3.68 10*6/uL 4.6-6.2 [facility] Blood hemoglobin measurement (mass/volume)Ordered By: Aura Sky on 10-05-2022 Hemoglobin (Bld) [Mass/Vol] 10.7 g/dL 13.0-16.5 [facility] Blood platelet mean volumeOr dered By: Aura Sky on 10-05-2022 Platelet mean volume (Bld) [Entitic vol] 11.1 fL 6.2-12.0 [facility] Determination of erythrocyte mean corpuscular volume (MCV)Ordered By: Aura Sky on 10-05-2022 MCV (RBC) [Entitic vol] 89.4 fL 80-[address] [facility] Hematocrit Auto (Bld) [Volum e fraction]Ordered By: Aura Sky on 10-05-2022 Hematocrit (Bld) [Volume fraction] 32.9 % 40-54 [facility] Laboratory - Chemistry and C hemistry - challengeOrdered By: Aura Sky on 10-05-2022 CO2 [Moles/Vol] 29.0 mmol/L 21.0-32.0 [facility] Urea nitrogen/Creatinine [Mass ratio] 10.0 mg/mg 10-20 [facility] Laboratory - Hematology and Cell countsOrdered By: Aura Sky on 10-05-2022 Erythrocyte distribution width (RBC) [Entitic vol] 42.5 fL 35.1-43.9 [facility] Erythrocyte distribution width (RBC) [Ratio] 12.9 % 11.6-14.6 [facility] MCH (RBC) [Entitic mass] 29.1 pg 27.0-32.0 [facility] MCHC Auto (RBC) [Mass/Vol]Or dered By: Aura Sky on 10-05-2022 MCHC (RBC) [Mass/Vol] 32.5 g/dL 32-36 [facility] No Panel InformationOrdered By: Aura Sky on 10-05-2022 Estimated GFR (MDRD) Amer 51 mL/min >60 [facility] Comment on above: GFR Calc Estimated GFR (MDRD) Non-Af Amer 42 mL/min >60 [facility] Comment on above: Non- GFR Calc Platelets bldOrdered By: Doe Sky on 10-05-2022 Platelets (Bld) [#/Vol] 222 10*3/uL 150-450 [facility] Serum or plasma calcium maria l urement (mass/volume)Ordered By: Aura Sky on 10-05-2022 Calcium [Mass/Vol] 8.3 mg/dL 8.5-10.1 [facility] Serum or plasma creatinine m easurement (mass/volume)Ordered By: Aura Sky on 10-05-2022 Creatinine [Mass/Vol] 1.70 mg/dL 0.70-1.30 [facility] Comment on above: The validity of the calculated GFR & GFRAA in patients over 70 years has not been determined. Clinical correlation is essential. Serum or plasma urea nitroge n measurement (mass/volume)Ordered By: Aura Sky on 10-05-2022 Urea nitrogen [Mass/Vol] 17 mg/dL 7-18 [facility] Thin prep Papanicolaou smear with manual screeningOrdered By: Aura Sky on 10-05-2022 Thin prep Papanicolaou smear with manual screening 6 5-15 [facility] Basophil percentageOrdered B y: Aura Sky on 09-03-2022 Chloride [Moles/Vol] 97 mmol/L 98-107 [facility] Glucose [Mass/Vol] 130 mg/dL 74-106 [facility] Comment on above: Fasting Glucose resu lt greater than or equal to 126 mg/dL suggests DIABETES MELLITUS per A.D.A. criteria. Potassium [Moles/Vol] 3.8 mmol/L 3.5-5.1 [facility] Sodium [Moles/Vol] 134 mmol/L 136-145 [facility] WBC (Bld) [#/Vol] 6.3 10*3/uL 4.4-11.0 [facility] Blood erythrocytes count (nu mber/volume)Ordered By: Aura Sky on 09-03-2022 RBC (Bld) [#/Vol] 3.47 10*6/uL 4.6-6.2 [facility] Blood hemoglobin measurement (mass/volume)Ordered By: Aura Sky on 09-03-2022 Hemoglobin (Bld) [Mass/Vol] 10.2 g/dL 13.0-16.5 [facility] Blood platelet mean volumeOr dered By: Aura Sky on 09-03-2022 Platelet mean volume (Bld) [Entitic vol] 11.3 fL 6.2-12.0 [facility] Determination of erythrocyte mean corpuscular volume (MCV)Ordered By: Aura Sky on 09-03-2022 MCV (RBC) [Entitic vol] 89.6 fL 80-[address] [facility] Hematocrit Auto (Bld) [Volum e fraction]Ordered By: Aura Sky on 09-03-2022 Hematocrit (Bld) [Volume fraction] 31.1 % 40-54 [facility] Laboratory - Chemistry and C hemistry - challengeOrdered By: Aura Sky on 09-03-2022 CO2 [Moles/Vol] 29.0 mmol/L 21.0-32.0 [facility] Urea nitrogen/Creatinine [Mass ratio] 12.1 mg/mg 10-20 [facility] Laboratory - Hematology and Cell countsOrdered By: Aura Sky on 09-03-2022 Erythrocyte distribution width (RBC) [Entitic vol] 42.5 fL 35.1-43.9 [facility] Erythrocyte distribution width (RBC) [Ratio] 13.1 % 11.6-14.6 [facility] MCH (RBC) [Entitic mass] 29.4 pg 27.0-32.0 [facility] MCHC Auto (RBC) [Mass/Vol]Or dered By: Aura Sky on 09-03-2022 MCHC (RBC) [Mass/Vol] 32.8 g/dL 32-36 [facility] No Panel InformationOrdered By: Aura Sky on 09-03-2022 Estimated GFR (MDRD) Amer 59 mL/min >60 [facility] Comment on above: GFR Calc Estimated GFR (MDRD) Non-Af Amer 49 mL/min >60 [facility] Comment on above: Non- GFR Calc Platelets bldOrdered By: Doe Sky on 09-03-2022 Platelets (Bld) [#/Vol] 212 10*3/uL 150-450 [facility] Serum or plasma calcium maria l urement (mass/volume)Ordered By: Aura Sky on 09-03-2022 Calcium [Mass/Vol] 8.0 mg/dL 8.5-10.1 [facility] Serum or plasma creatinine m easurement (mass/volume)Ordered By: Aura Sky on 09-03-2022 Creatinine [Mass/Vol] 1.49 mg/dL 0.70-1.30 [facility] Comment on above: The validity of the calculated GFR & GFRAA in patients over 70 years has not been determined. Clinical correlation is essential. Serum or plasma urea nitroge n measurement (mass/volume)Ordered By: Aura Sky on 09-03-2022 Urea nitrogen [Mass/Vol] 18 mg/dL 7-18 [facility] Thin prep Papanicolaou smear with manual screeningOrdered By: Aura Sky on 09-03-2022 Thin prep Papanicolaou smear with manual screening 8 5-15 [facility] Basophil percentageOrdered B y: Aura Sky on 08-04-2022 Chloride [Moles/Vol] 97 mmol/L 98-107 [facility] Glucose [Mass/Vol] 109 mg/dL 74-106 [facility] Comment on above: Fasting Glucose resu lt from 100 to 125 mg/dL suggests IMPAIRED HOMEOSTASIS per A.D.A. criteria. Potassium [Moles/Vol] 4.1 mmol/L 3.5-5.1 [facility] Sodium [Moles/Vol] 131 mmol/L 136-145 [facility] WBC (Bld) [#/Vol] 7.6 10*3/uL 4.4-11.0 [facility] Blood erythrocytes count (nu mber/volume)Ordered By: Aura Sky on 08-04-2022 RBC (Bld) [#/Vol] 3.88 10*6/uL 4.6-6.2 [facility] Blood hemoglobin measurement (mass/volume)Ordered By: Aura Sky on 08-04-2022 Hemoglobin (Bld) [Mass/Vol] 11.1 g/dL 13.0-16.5 [facility] Blood platelet mean volumeOr dered By: Aura Sky on 08-04-2022 Platelet mean volume (Bld) [Entitic vol] 10.7 fL 6.2-12.0 [facility] Determination of erythrocyte mean corpuscular volume (MCV)Ordered By: Aura Sky on 08-04-2022 MCV (RBC) [Entitic vol] 88.9 fL 80-[address] [facility] Hematocrit Auto (Bld) [Volum e fraction]Ordered By: Aura Sky on 08-04-2022 Hematocrit (Bld) [Volume fraction] 34.5 % 40-54 [facility] Laboratory - Chemistry and C hemistry - challengeOrdered By: Aura Sky on 08-04-2022 CO2 [Moles/Vol] 29.0 mmol/L 21.0-32.0 [facility] Urea nitrogen/Creatinine [Mass ratio] 13.3 mg/mg 10-20 [facility] Laboratory - Hematology and Cell countsOrdered By: Aura Sky on 08-04-2022 Erythrocyte distribution width (RBC) [Entitic vol] 43.9 fL 35.1-43.9 [facility] Erythrocyte distribution width (RBC) [Ratio] 13.4 % 11.6-14.6 [facility] MCH (RBC) [Entitic mass] 28.6 pg 27.0-32.0 [facility] MCHC Auto (RBC) [Mass/Vol]Or dered By: Aura Sky on 08-04-2022 MCHC (RBC) [Mass/Vol] 32.2 g/dL 32-36 [facility] No Panel InformationOrdered By: Aura Sky on 08-04-2022 Estimated GFR (MDRD) Amer 58 mL/min >60 [facility] Comment on above: GFR Calc Estimated GFR (MDRD) Non-Af Amer 48 mL/min >60 [facility] Comment on above: Non- GFR Calc Platelets bldOrdered By: Doe Sky on 08-04-2022 Platelets (Bld) [#/Vol] 271 10*3/uL 150-450 [facility] Serum or plasma calcium maria l urement (mass/volume)Ordered By: Aura Sky on 08-04-2022 Calcium [Mass/Vol] 8.3 mg/dL 8.5-10.1 [facility] Serum or plasma creatinine m easurement (mass/volume)Ordered By: Aura Sky on 08-04-2022 Creatinine [Mass/Vol] 1.50 mg/dL 0.70-1.30 [facility] Comment on above: The validity of the calculated GFR & GFRAA in patients over 70 years has not been determined. Clinical correlation is essential. Serum or plasma urea nitroge n measurement (mass/volume)Ordered By: Aura Sky on 08-04-2022 Urea nitrogen [Mass/Vol] 20 mg/dL 7-18 [facility] Thin prep Papanicolaou smear with manual screeningOrdered By: Aura Sky on 08-04-2022 Thin prep Papanicolaou smear with manual screening 5 5-15 [facility] Basophil percentageOrdered B y: Aura Sky on 07-06-2022 Chloride [Moles/Vol] 101 mmol/L 98-107 [facility] Glucose [Mass/Vol] 98 mg/dL 74-106 [facility] Potassium [Moles/Vol] 4.1 mmol/L 3.5-5.1 [facility] Sodium [Moles/Vol] 135 mmol/L 136-145 [facility] WBC (Bld) [#/Vol] 6.8 10*3/uL 4.4-11.0 [facility] Blood erythrocytes count (nu mber/volume)Ordered By: Aura Sky on 07-06-2022 RBC (Bld) [#/Vol] 3.40 10*6/uL 4.6-6.2 [facility] Blood hemoglobin measurement (mass/volume)Ordered By: Aura Sky on 07-06-2022 Hemoglobin (Bld) [Mass/Vol] 10.3 g/dL 13.0-16.5 [facility] Blood platelet mean volumeOr dered By: Aura Sky on 07-06-2022 Platelet mean volume (Bld) [Entitic vol] 11.3 fL 6.2-12.0 [facility] Determination of erythrocyte mean corpuscular volume (MCV)Ordered By: Aura Sky on 07-06-2022 MCV (RBC) [Entitic vol] 89.7 fL 80-[address] [facility] Hematocrit Auto (Bld) [Volum e fraction]Ordered By: Aura Sky on 07-06-2022 Hematocrit (Bld) [Volume fraction] 30.5 % 40-54 [facility] Laboratory - Chemistry and C hemistry - challengeOrdered By: Aura Sky on 07-06-2022 CO2 [Moles/Vol] 32.0 mmol/L 21.0-32.0 [facility] Urea nitrogen/Creatinine [Mass ratio] 10.3 mg/mg 10-20 [facility] Laboratory - Hematology and Cell countsOrdered By: Aura Sky on 07-06-2022 Erythrocyte distribution width (RBC) [Entitic vol] 44.7 fL 35.1-43.9 [facility] Erythrocyte distribution width (RBC) [Ratio] 13.6 % 11.6-14.6 [facility] MCH (RBC) [Entitic mass] 30.3 pg 27.0-32.0 [facility] MCHC Auto (RBC) [Mass/Vol]Or dered By: Aura Sky on 07-06-2022 MCHC (RBC) [Mass/Vol] 33.8 g/dL 32-36 [facility] No Panel InformationOrdered By: Aura Sky on 07-06-2022 Estimated GFR (MDRD) Amer 60 mL/min >60 [facility] Comment on above: GFR Calc Estimated GFR (MDRD) Non-Af Amer 50 mL/min >60 [facility] Comment on above: Non- GFR Calc Platelets bldOrdered By: Doe Sky on 07-06-2022 Platelets (Bld) [#/Vol] 234 10*3/uL 150-450 [facility] Serum or plasma calcium maria l urement (mass/volume)Ordered By: Aura Sky on 07-06-2022 Calcium [Mass/Vol] 8.0 mg/dL 8.5-10.1 [facility] Serum or plasma creatinine m easurement (mass/volume)Ordered By: Aura Sky on 07-06-2022 Creatinine [Mass/Vol] 1.46 mg/dL 0.70-1.30 [facility] Comment on above: The validity of the calculated GFR & GFRAA in patients over 70 years has not been determined. Clinical correlation is essential. Serum or plasma urea nitroge n measurement (mass/volume)Ordered By: Aura Sky on 07-06-2022 Urea nitrogen [Mass/Vol] 15 mg/dL 7-18 [facility] Thin prep Papanicolaou smear with manual screeningOrdered By: Aura Sky on 07-06-2022 Thin prep Papanicolaou smear with manual screening 2 5-15 [facility] Basophil percentageOrdered B y: Aura Sky on 06-02-2022 Chloride [Moles/Vol] 104 mmol/L 98-107 [facility] Cholesterol [Mass/Vol] 140 mg/dL <200 [facility] Comment on above: <200 mg/dL Desirable 200-240 mg/dL Borderline >240 mg/dL High Risk Glucose [Mass/Vol] 140 mg/dL 74-106 [facility] Comment on above: Fasting Glucose resu lt greater than or equal to 126 mg/dL suggests DIABETES MELLITUS per A.D.A. criteria. Potassium [Moles/Vol] 4.2 mmol/L 3.5-5.1 [facility] Sodium [Moles/Vol] 136 mmol/L 136-145 [facility] Triglyceride [Mass/Vol] 75 mg/dL <[address] [facility] Comment on above: The drugs N-Acetylcy steine and Metamizole may falsely depress this assay.Serum Triglycerides Reference Interval Normal <150 mg/dL Borderline high 150 - 199 mg/dL High 200 - 499 mg/dL Very High > or = 500 mg/dL WBC (Bld) [#/Vol] 6.5 10*3/uL 4.4-11.0 [facility] Blood erythrocytes count (nu mber/volume)Ordered By: Aura Sky on 06-02-2022 RBC (Bld) [#/Vol] 3.61 10*6/uL 4.6-6.2 [facility] Blood hemoglobin measurement (mass/volume)Ordered By: Aura Sky on 06-02-2022 Hemoglobin (Bld) [Mass/Vol] 10.6 g/dL 13.0-16.5 [facility] Blood platelet mean volumeOr dered By: Aura Sky on 06-02-2022 Platelet mean volume (Bld) [Entitic vol] 11.1 fL 6.2-12.0 [facility] CNOVon 06-02-2022 CNOV Office Visit (UROLMD ) -------- ELAINE COREA ([id number]) 1945 M Date Time Provider Department 06/02/22 9:15 AM JORDAN JORDAN JR UROLMD During your visit today, we recorded the following information about you: Weight Height 99 kg 1.676 m Jordan Jordan Jr, MD 06/02/2022 9:14 AM Signed ESTABLISHED [...] (no units) Date Value 01/09/2016 neg Specific [place], Ur (no units) Date Value 01/09/2016 1.010 [...] mouth daily at bedtime. blood sugar diagnostic (OssDsign AB ULTRA TEST) test strip Check blood sugars once a day. Levothyroxine 50 mcg cap Take 1 capsule by mouth once daily. lisinopril (ZESTRIL, PRINIVIL) 40 mg tablet Take 1 tablet by mouth once daily. lancets (SOLUS V2 LANCETS) 28 gauge [facility] Check blood sugar once daily. Dx: E11.40. [...] (HCC) 03/11/[address] 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 Normal [facility] Determination of erythrocyte mean corpuscular volume (MCV)Ordered By: Aura Sky on 06-02-2022 MCV (RBC) [Entitic vol] 90.0 fL 80-[address] [facility] Hematocrit Auto (Bld) [Volum e fraction]Ordered By: Aura Sky on 06-02-2022 Hematocrit (Bld) [Volume fraction] 32.5 % 40-54 [facility] Laboratory - Chemistry and C hemistry - challengeOrdered By: Aura Sky on 06-02-2022 CO2 [Moles/Vol] 28.0 mmol/L 21.0-32.0 [facility] Cobalamin (Vitamin B12) [Mass/Vol] 856 pg/mL 211-911 [facility] Urea nitrogen/Creatinine [Mass ratio] 15.9 mg/mg 10-20 [facility] Laboratory - Hematology and Cell countsOrdered By: Aura Sky on 06-02-2022 Erythrocyte distribution width (RBC) [Entitic vol] 44.0 fL 35.1-43.9 [facility] Erythrocyte distribution width (RBC) [Ratio] 13.3 % 11.6-14.6 [facility] MCH (RBC) [Entitic mass] 29.4 pg 27.0-32.0 [facility] MCHC Auto (RBC) [Mass/Vol]Or dered By: Aura Sky on 06-02-2022 MCHC (RBC) [Mass/Vol] 32.6 g/dL 32-36 [facility] No Panel InformationOrdered By: Aura Sky on 06-02-2022 Estimated GFR (MDRD) Amer 71 mL/min >60 [facility] Comment on above: GFR Calc Estimated GFR (MDRD) Non-Af Amer 59 mL/min >60 [facility] Comment on above: Non- GFR Calc Thyroid Stimulating Hormone (TSH) 2.81 uIU/mL 0.358-3.74 [facility] Platelets bldOrdered By: Doe Sky on 06-02-2022 Platelets (Bld) [#/Vol] 240 10*3/uL 150-450 [facility] Serum or plasma calcium maria l urement (mass/volume)Ordered By: Aura Sky on 06-02-2022 Calcium [Mass/Vol] 8.2 mg/dL 8.5-10.1 [facility] Serum or plasma cholesterol in HDL measurement (mass/volume)Ordered By: Aura Sky on 06-02-2022 Cholesterol in HDL [Mass/Vol] 54 mg/dL >40 [facility] Comment on above: The drugs N-Acetylcy steine and Metamizole may falsely depress this assay. Reference Range HDL <40 mg/dL Low HDL Cholesterol HDL >or= 60 mg/dL High HDL Cholesterol Serum or plasma cholesterol in VLDL measurement (mass/volume)Ordered By: Aura Sky on 06-02-2022 Cholesterol in VLDL [Mass/Vol] 15 mg/dL 5-40 [facility] Serum or plasma creatinine m easurement (mass/volume)Ordered By: Aura Sky on 06-02-2022 Creatinine [Mass/Vol] 1.26 mg/dL 0.70-1.30 [facility] Comment on above: The validity of the calculated GFR & GFRAA in patients over 70 years has not been determined. Clinical correlation is essential. Serum or plasma low density lipoprotein (LDL) cholesterol measurement (mass/volume)Ordered By: Aura Sky on 06-02-2022 Cholesterol in LDL [Mass/Vol] 71 mg/dL 0-130 [facility] Serum or plasma urea nitroge n measurement (mass/volume)Ordered By: Aura Sky on 06-02-2022 Urea nitrogen [Mass/Vol] 20 mg/dL 7-18 [facility] Thin prep Papanicolaou smear with manual screeningOrdered By: Aura Sky on 06-02-2022 Thin prep Papanicolaou smear with manual screening 4 5-15 [facility] Whole blood hemoglobin A1c/t otal hemoglobin ratio (mass fraction)Ordered By: Aura Sky on 06-02-2022 HbA1c (Bld) [Mass fraction] 7.1 % 3.8-5.6 [facility] Comment on above: Normal < 5.7 % Predi abetic 5.7 - 6.4 % Diabetic >or= 6.5 % Please note range changes. Basophil percentageon 2021 Chloride [Moles/Vol] 99 mmol/L 98-107 [facility] Work Phone: Cholesterol [Mass/Vol] 120 mg/dL <200 [facility] Work Phone: Comment on above: <200 mg/dL Desirable 200-240 mg/dL Borderline >240 mg/dL High Risk Glucose [Mass/Vol] 182 mg/dL 74-106 [facility] Work Phone: Comment on above: Fasting Glucose resu lt greater than or equal to 126 mg/dL suggests DIABETES MELLITUS per A.D.A. criteria. Potassium [Moles/Vol] 3.7 mmol/L 3.5-5.1 [facility] Work Phone: Sodium [Moles/Vol] 135 mmol/L 136-145 [facility] Work Phone: Triglyceride [Mass/Vol] 107 mg/dL <[address] [facility] Work Phone: Comment on above: The drugs N-Acetylcy steine and Metamizole may falsely depress this assay.Serum Triglycerides Reference Interval Normal <150 mg/dL Borderline high 150 - 199 mg/dL High 200 - 499 mg/dL Very High > or = 500 mg/dL WBC (Bld) [#/Vol] 6.6 10*3/uL 4.4-11.0 [facility] Work Phone: Blood erythrocytes count (nu mber/volume)on 05-04-2022 RBC (Bld) [#/Vol] 3.26 10*6/uL 4.6-6.2 [facility] Work Phone: Blood hemoglobin measurement (mass/volume)on 05-04-2022 Hemoglobin (Bld) [Mass/Vol] 9.4 g/dL 13.0-16.5 [facility] Work Phone: Blood platelet mean volumeon 05-04-2022 Platelet mean volume (Bld) [Entitic vol] 11.0 fL 6.2-12.0 [facility] Work Phone: Determination of erythrocyte mean corpuscular volume (MCV)on 05-04-2022 MCV (RBC) [Entitic vol] 91.7 fL 80-[address] [facility] Work Phone: Hematocrit Auto (Bld) [Volum e fraction]on 05-04-2022 Hematocrit (Bld) [Volume fraction] 29.9 % 40-54 [facility] Work Phone: Laboratory - Chemistry and C hemistry - challengeon 05-04-2022 CO2 [Moles/Vol] 29.0 mmol/L 21.0-32.0 [facility] Work Phone: Cobalamin (Vitamin B12) [Mass/Vol] 442 pg/mL 211-911 [facility] Work Phone: Urea nitrogen/Creatinine [Mass ratio] 14.2 mg/mg 10-20 [facility] Work Phone: Laboratory - Hematology and Cell countson 05-04-2022 Erythrocyte distribution width (RBC) [Entitic vol] 45.2 fL 35.1-43.9 [facility] Work Phone: Erythrocyte distribution width (RBC) [Ratio] 13.5 % 11.6-14.6 [facility] Work Phone: MCH (RBC) [Entitic mass] 28.8 pg 27.0-32.0 [facility] Work Phone: MCHC Auto (RBC) [Mass/Vol]on 05-04-2022 MCHC (RBC) [Mass/Vol] 31.4 g/dL 32-36 [facility] Work Phone: No Panel Informationon 05-04 Estimated GFR (MDRD) Amer 76 mL/min >60 [facility] Work Phone: Comment on above: GFR Calc Estimated GFR (MDRD) Non-Af Amer 63 mL/min >60 [facility] Work Phone: Comment on above: Non- GFR Calc Thyroid Stimulating Hormone (TSH) 2.31 uIU/mL 0.358-3.74 [facility] Work Phone: Platelets bldon 05-04-2022 Platelets (Bld) [#/Vol] 256 10*3/uL 150-450 [facility] Work Phone: Serum or plasma calcium maria l urement (mass/volume)on 05-04-2022 Calcium [Mass/Vol] 8.0 mg/dL 8.5-10.1 [facility] Work Phone: Serum or plasma cholesterol in HDL measurement (mass/volume)on 05-04-2022 Cholesterol in HDL [Mass/Vol] 47 mg/dL >40 [facility] Work Phone: Comment on above: The drugs N-Acetylcy steine and Metamizole may falsely depress this assay. Reference Range HDL <40 mg/dL Low HDL Cholesterol HDL >or= 60 mg/dL High HDL Cholesterol Serum or plasma cholesterol in VLDL measurement (mass/volume)on 05-04-2022 Cholesterol in VLDL [Mass/Vol] 21 mg/dL 5-40 [facility] Work Phone: Serum or plasma creatinine m easurement (mass/volume)on 05-04-2022 Creatinine [Mass/Vol] 1.20 mg/dL 0.70-1.30 [facility] Work Phone: Comment on above: The validity of the calculated GFR & GFRAA in patients over 70 years has not been determined. Clinical correlation is essential. Serum or plasma low density lipoprotein (LDL) cholesterol measurement (mass/volume)on 05-04-2022 Cholesterol in LDL [Mass/Vol] 52 mg/dL 0-130 [facility] Work Phone: Serum or plasma urea nitroge n measurement (mass/volume)on 05-04-2022 Urea nitrogen [Mass/Vol] 17 mg/dL 7-18 [facility] Work Phone: Thin prep Papanicolaou smear with manual screeningon 05-04-2022 Thin prep Papanicolaou smear with manual screening 7 5-15 [facility] Work Phone: Whole blood hemoglobin A1c/t otal hemoglobin ratio (mass fraction)on 05-04-2022 HbA1c (Bld) [Mass fraction] 7.1 % 3.8-5.6 [facility] Work Phone: Comment on above: Normal < 5.7 % Predi abetic 5.7 - 6.4 % Diabetic >or= 6.5 % Please note range changes. Absolute lymphocyte counton 04-10-2022 Lymphocytes Auto (Unsp spec) [#/Vol] 2.55 10*3/uL 0.83-4.51 [facility] Work Phone: Basophil percentageon 2021 Basophil percentage 5-10 SEEN /hpf 0-[address] [facility] Work Phone: Basophils/100 WBC (Bld) 0.2 % 0-[address] [facility] Work Phone: Chloride [Moles/Vol] 100 mmol/L 98-107 [facility] Work Phone: Eosinophils/100 WBC (Bld) 1.0 % 0-5 [facility] Work Phone: Glucose [Mass/Vol] 181 mg/dL 74-106 [facility] Work Phone: Comment on above: Fasting Glucose resu lt greater than or equal to 126 mg/dL suggests DIABETES MELLITUS per A.D.A. criteria. Neutrophils (Bld) [#/Vol] 6.2 10*3/uL 2.0-7.7 [facility] Work Phone: Neutrophils/100 WBC (Bld) 62.5 % 47-70 [facility] Work Phone: Potassium [Moles/Vol] 4.4 mmol/L 3.5-5.1 [facility] Work Phone: Sodium [Moles/Vol] 133 mmol/L 136-145 [facility] Work Phone: WBC (Bld) [#/Vol] 10.0 10*3/uL 4.4-11.0 [facility] Work Phone: Bilirubin Test strip Ql (U)o n 04-10-2022 Bilirubin Ql (U) Negative Negative [facility] Work Phone: Blood erythrocytes count (nu mber/volume)on 04-10-2022 RBC (Bld) [#/Vol] 3.80 10*6/uL 4.6-6.2 [facility] Work Phone: Blood hemoglobin measurement (mass/volume)on 04-10-2022 Hemoglobin (Bld) [Mass/Vol] 11.1 g/dL 13.0-16.5 [facility] Work Phone: Blood lymphocytes/100 leukoc yteson 04-10-2022 Lymphocytes/100 WBC (Bld) 25.6 % 19-41 [facility] Work Phone: Blood monocytes/100 leukocyt eson 04-10-2022 Monocytes/100 WBC (Bld) 10.3 % 0-[address] [facility] Work Phone: Blood platelet mean volumeon 04-10-2022 Platelet mean volume (Bld) [Entitic vol] 11.1 fL 6.2-12.0 [facility] Work Phone: CNOVon 04-10-2022 CNOV Office Visit (UROLMD ) -------- YURIELAINE VALDERRAMA ([id number]) 1945 M IPA Date Time Provider Department 04/10/22 9:00 AM OUSMANE DURAND UROMALLY During your visit today, we recorded the following information about you: Weight Height 96 kg 1.676 m Ousmane Durand MD 04/10/2022 10:03 AM Addendum [facility] [...] last 2 years. Patient lives in a shelter facility and has his catheter changed every [...] mouth daily at bedtime. blood sugar diagnostic (TUTORizeTOUCH ULTRA TEST) test strip Check blood sugars once a day. Levothyroxine 50 mcg cap Take 1 capsule by mouth once daily. lisinopril (ZESTRIL, PRINIVIL) 40 mg tablet Take 1 tablet by mouth once daily. amLODIPine (NORVASC) 10 mg tablet Take 1 tablet by mouth once daily. lancets (SOLUS V2 LANCETS) 28 gauge [facility] Check blood sugar once daily. Dx: E11.40. [...] My final (more content not included)... Normal [facility] Determination of erythrocyte mean corpuscular volume (MCV)on 04-10-2022 MCV (RBC) [Entitic vol] 88.9 fL 80-[address] [facility] Work Phone: Glucose Glucometer (BldC) [M ass/Vol]on 04-10-2022 Glucose [Mass/Vol] 102 mg/dL 74-106 [facility] Work Phone: Comment on above: MANAGEMENT OF PATIEN T CARE PER NURSING PROTOCOL Hematocrit Auto (Bld) [Volum e fraction]on 04-10-2022 Hematocrit (Bld) [Volume fraction] 33.8 % 40-54 [facility] Work Phone: Ketones Test strip Ql (U)on 04-10-2022 Ketones Ql (U) Negative Negative [facility] Work Phone: Laboratory - Chemistry and C hemistry - challengeon 04-10-2022 CO2 [Moles/Vol] 27.0 mmol/L 21.0-32.0 [facility] Work Phone: Urea nitrogen/Creatinine [Mass ratio] 16.2 mg/mg 10-20 [facility] Work Phone: Laboratory - Drug toxicology on 04-10-2022 Amphetamines Ql (U) Negative <1000 ng/mL [facility] Work Phone: Benzodiazepines Ql (U) Negative < 200 ng/mL [facility] Work Phone: Cannabinoids Screen Ql (U) Negative < 50 ng/mL [facility] Work Phone: Cocaine Ql (U) Negative < 300 ng/mL [facility] Work Phone: Opiates Ql (U) Negative < 300 ng/mL [facility] Work Phone: Laboratory - Hematology and Cell countson 04-10-2022 Erythrocyte distribution width (RBC) [Entitic vol] 43.7 fL 35.1-43.9 [facility] Work Phone: Erythrocyte distribution width (RBC) [Ratio] 13.4 % 11.6-14.6 [facility] Work Phone: Immature granulocytes/100 WBC (Bld) 0.400 % 0.0-0.9 [facility] Work Phone: Comment on above: IG% - Immature Granu locytes (promyelocytes, myelocytes and metamyelocytes) > 1% indicates that a LEFT SHIFT is Present. MCH (RBC) [Entitic mass] 29.2 pg 27.0-32.0 [facility] Work Phone: Nucleated RBC/100 WBC (Bld) [Ratio] 0 % 0-5 [facility] Work Phone: MCHC Auto (RBC) [Mass/Vol]on 04-10-2022 MCHC (RBC) [Mass/Vol] 32.8 g/dL 32-36 [facility] Work Phone: Magnesium ammonium phosphate crystal detectionon 04-10-2022 Triple phosphate crystals LM Ql (Urine sed) 4+ /hpf [facility] Work Phone: Mucus LM Ql (Urine sed)on Mucus Ql (Urine sed) 0 SEEN /hpf [facility] Work Phone: Nitrite Test strip Ql (U)on 04-10-2022 Nitrite Ql (U) Negative Negative [facility] Work Phone: No Panel Informationon 04-10 Estimated Creatinine Clearance Calc 38.32 ml/min [facility] Work Phone: Estimated GFR (MDRD) Amer 59 mL/min >60 [facility] Work Phone: Comment on above: GFR Calc Estimated GFR (MDRD) Non-Af Amer 49 mL/min >60 [facility] Work Phone: Comment on above: Non- GFR Calc Ethyl Alcohol Level 7.0 mg/dL [facility] Work Phone: Comment on above: The serum:whole bloo d ethanol ratio is approximately 1.14and varies slightly with hematocrit. Medical Alcohol reference interval and critical value innon-tolerant individuals; 50 - 100 Impairment 100 Intoxication 100 - 250 Severe Poisoning 250 - 400 Deep/possible fatal coma MDMA (Ecstasy) Screen Negative < 500 ng/mL [facility] Work Phone: Urine Barbiturates Screen Negative < 200 ng/mL [facility] Work Phone: Urine Drug Screen Comment [facility] Work Phone: Comment on above: CONFIRMATORY TESTING [...] Methadone Screen Negative < 300 ng/mL [facility] Work Phone: Platelets bldon 04-10-2022 Platelets (Bld) [#/Vol] 288 10*3/uL 150-450 [facility] Work Phone: Protein Test strip Ql (U)on 04-10-2022 Protein Ql (U) 100 mg/dl Negative [facility] Work Phone: Serum or plasma calcium maria l urement (mass/volume)on 04-10-2022 Calcium [Mass/Vol] 8.4 mg/dL 8.5-10.1 [facility] Work Phone: Serum or plasma creatinine m easurement (mass/volume)on 04-10-2022 Creatinine [Mass/Vol] 1.48 mg/dL 0.70-1.30 [facility] Work Phone: Comment on above: The validity of the calculated GFR & GFRAA in patients over 70 years has not been determined. Clinical correlation is essential. Serum or plasma urea nitroge n measurement (mass/volume)on 04-10-2022 Urea nitrogen [Mass/Vol] 24 mg/dL 7-18 [facility] Work Phone: Squamous epithelial cells de tection in urine sediment by light microscopyon 04-10-2022 Epithelial cells.squamous LM Ql (Urine sed) 5-10 SEEN /hpf 0-5 [facility] Work Phone: Thin prep Papanicolaou smear with manual screeningon 04-10-2022 Thin prep Papanicolaou smear with manual screening 6 5-15 [facility] Work Phone: Urine blood detectionon RBC Ql (U) 150 /ul Negative [facility] Work Phone: RBC Ql (U) 5-10 SEEN /hpf 0-5 [facility] Work Phone: Urine clarityon 04-10-2022 Clarity (U) Cloudy Clear [facility] Work Phone: Urine color determinationon 04-10-2022 Color (U) Yellow Yellow [facility] Work Phone: Urine glucose detectionon Glucose Ql (U) Normal mg/dl Normal [facility] Work Phone: Urine leukocyte esterase det ection by dipstickon 04-10-2022 Leukocyte esterase Test strip Ql (U) 500 /ul Negative [facility] Work Phone: Urine pHon 04-10-2022 pH (U) 8.0 [pH] 5.0 - 8.0 [facility] Work Phone: Urine phencyclidine (PCP) de tectionon 04-10-2022 Phencyclidine Ql (U) Negative < 25 ng/mL [facility] Work Phone: Urine sediment bacteria coun t by microscopy (number/high power field)on 04-10-2022 Bacteria LM.HPF (Urine sed) [#/Area] 2 /[HPF] None Seen [facility] Work Phone: Urine specific gravity measu rementon 04-10-2022 Specific gravity (U) [Rel density] 1.010 1.002-1.030 [facility] Work Phone: Urobilinogen Auto test strip Ql (U)on 04-10-2022 Urobilinogen Ql (U) Normal mg/dl Normal [facility] Work Phone: Basophil percentageon 2021 Chloride [Moles/Vol] 106 mmol/L 98-107 [facility] Work Phone: Glucose [Mass/Vol] 96 mg/dL 74-106 [facility] Work Phone: Potassium [Moles/Vol] 3.9 mmol/L 3.5-5.1 [facility] Work Phone: Sodium [Moles/Vol] 138 mmol/L 136-145 [facility] Work Phone: WBC (Bld) [#/Vol] 6.5 10*3/uL 4.4-11.0 [facility] Work Phone: Blood erythrocytes count (nu mber/volume)on 04-03-2022 RBC (Bld) [#/Vol] 3.71 10*6/uL 4.6-6.2 [facility] Work Phone: Blood hemoglobin measurement (mass/volume)on 04-03-2022 Hemoglobin (Bld) [Mass/Vol] 11.0 g/dL 13.0-16.5 [facility] Work Phone: Blood platelet mean volumeon 04-03-2022 Platelet mean volume (Bld) [Entitic vol] 11.3 fL 6.2-12.0 [facility] Work Phone: CNPNon 04-03-2022 CNPN Telephone (UROLWS) -------- ELAINE COREA ([id number]) 1945 M IPA Date Time Provider Department 04/03/22 FITZ RANGEL During your visit today, we recorded the following information about you: Guerita Reid RN 04/03/2022 9:48 AM Signed Duran nurse with [facility] calling. States pt. wants to discuss getting suprapubic cath placed. Wants to know where he would have this procedure done at? Pt. also has other urinary related questions that he would like answered. This nurse advised that pt come in for in person appointment to have all questions answered. Duran would like a call back with appt. time. Please call him at [phone] x [phone]. OLINDA Patel PA-C 04/03/2022 9:54 AM Signed Needs a Staff Urologist who does the SPT procedure, closest would be [facility] they will require a in-person visit and discussion with patient. They can call them direct , I am not familiar with who can do the surgery but I am sure there are 3-4 at least there. Fitz [facility]angel [facility] [place], PAMayra Verma LPN 04/03/2022 10:15 AM Signed Called Duran. No answer- left message. Verified name and date of . Guerita Reid RN 04/03/2022 10:16 AM Signed Called Duran, notified him of below information. States he plans to call Dr. Sosa in [place] and set up appt with him. Will [...] daily at bedtime. - blood sugar diagnostic (OssDsign AB ULTRA TEST) test strip Check blood sugars [...] hypothyroidism [E03.9] (more content not included)... Normal [facility] Determination of erythrocyte mean corpuscular volume (MCV)on 04-03-2022 MCV (RBC) [Entitic vol] 90.3 fL 80-[address] [facility] Work Phone: Hematocrit Auto (Bld) [Volum e fraction]on 04-03-2022 Hematocrit (Bld) [Volume fraction] 33.5 % 40-54 [facility] Work Phone: Laboratory - Chemistry and C hemistry - challengeon 04-03-2022 CO2 [Moles/Vol] 28.0 mmol/L 21.0-32.0 [facility] Work Phone: Urea nitrogen/Creatinine [Mass ratio] 15.2 mg/mg 10-20 [facility] Work Phone: Laboratory - Hematology and Cell countson 04-03-2022 Erythrocyte distribution width (RBC) [Entitic vol] 45.6 fL 35.1-43.9 [facility] Work Phone: Erythrocyte distribution width (RBC) [Ratio] 13.8 % 11.6-14.6 [facility] Work Phone: MCH (RBC) [Entitic mass] 29.6 pg 27.0-32.0 [facility] Work Phone: MCHC Auto (RBC) [Mass/Vol]on 04-03-2022 MCHC (RBC) [Mass/Vol] 32.8 g/dL 32-36 [facility] Work Phone: No Panel Informationon 04-03 Estimated GFR (MDRD) Amer 72 mL/min >60 [facility] Work Phone: Comment on above: GFR Calc Estimated GFR (MDRD) Non-Af Amer 60 mL/min >60 [facility] Work Phone: Comment on above: Non- GFR Calc Platelets bldon 04-03-2022 Platelets (Bld) [#/Vol] 233 10*3/uL 150-450 [facility] Work Phone: Serum or plasma calcium maria l urement (mass/volume)on 04-03-2022 Calcium [Mass/Vol] 8.1 mg/dL 8.5-10.1 [facility] Work Phone: Serum or plasma creatinine m easurement (mass/volume)on 04-03-2022 Creatinine [Mass/Vol] 1.25 mg/dL 0.70-1.30 [facility] Work Phone: Comment on above: The validity of the calculated GFR & GFRAA in patients over 70 years has not been determined. Clinical correlation is essential. Serum or plasma urea nitroge n measurement (mass/volume)on 04-03-2022 Urea nitrogen [Mass/Vol] 19 mg/dL 7-18 [facility] Work Phone: Thin prep Papanicolaou smear with manual screeningon 04-03-2022 Thin prep Papanicolaou smear with manual screening 4 5-15 [facility] Work Phone: Basophil percentageon 2021 Chloride [Moles/Vol] 104 mmol/L 98-107 [facility] Work Phone: Glucose [Mass/Vol] 85 mg/dL 74-106 [facility] Work Phone: Potassium [Moles/Vol] 3.7 mmol/L 3.5-5.1 [facility] Work Phone: Sodium [Moles/Vol] 139 mmol/L 136-145 [facility] Work Phone: WBC (Bld) [#/Vol] 7.4 10*3/uL 4.4-11.0 [facility] Work Phone: Blood erythrocytes count (nu mber/volume)on 03-03-2022 RBC (Bld) [#/Vol] 3.56 10*6/uL 4.6-6.2 [facility] Work Phone: Blood hemoglobin measurement (mass/volume)on 03-03-2022 Hemoglobin (Bld) [Mass/Vol] 10.7 g/dL 13.0-16.5 [facility] Work Phone: Blood platelet mean volumeon 03-03-2022 Platelet mean volume (Bld) [Entitic vol] 12.2 fL 6.2-12.0 [facility] Work Phone: Determination of erythrocyte mean corpuscular volume (MCV)on 03-03-2022 MCV (RBC) [Entitic vol] 93.0 fL 80-[address] [facility] Work Phone: Hematocrit Auto (Bld) [Volum e fraction]on 03-03-2022 Hematocrit (Bld) [Volume fraction] 33.1 % 40-54 [facility] Work Phone: Laboratory - Chemistry and C hemistry - challengeon 03-03-2022 CO2 [Moles/Vol] 31.0 mmol/L 21.0-32.0 [facility] Work Phone: Urea nitrogen/Creatinine [Mass ratio] 14.0 mg/mg 10-20 [facility] Work Phone: Laboratory - Hematology and Cell countson 03-03-2022 Erythrocyte distribution width (RBC) [Entitic vol] 51.8 fL 35.1-43.9 [facility] Work Phone: Erythrocyte distribution width (RBC) [Ratio] 15.0 % 11.6-14.6 [facility] Work Phone: MCH (RBC) [Entitic mass] 30.1 pg 27.0-32.0 [facility] Work Phone: MCHC Auto (RBC) [Mass/Vol]on 03-03-2022 MCHC (RBC) [Mass/Vol] 32.3 g/dL 32-36 [facility] Work Phone: No Panel Informationon 03-03 Estimated GFR (MDRD) Amer 75 mL/min >60 [facility] Work Phone: Comment on above: GFR Calc Estimated GFR (MDRD) Non-Af Amer 62 mL/min >60 [facility] Work Phone: Comment on above: Non- GFR Calc Platelets bldon 03-03-2022 Platelets (Bld) [#/Vol] 196 10*3/uL 150-450 [facility] Work Phone: Serum or plasma calcium maria l urement (mass/volume)on 03-03-2022 Calcium [Mass/Vol] 8.3 mg/dL 8.5-10.1 [facility] Work Phone: Serum or plasma creatinine m easurement (mass/volume)on 03-03-2022 Creatinine [Mass/Vol] 1.21 mg/dL 0.70-1.30 [facility] Work Phone: Comment on above: The validity of the calculated GFR & GFRAA in patients over 70 years has not been determined. Clinical correlation is essential. Serum or plasma urea nitroge n measurement (mass/volume)on 03-03-2022 Urea nitrogen [Mass/Vol] 17 mg/dL 7-18 [facility] Work Phone: Thin prep Papanicolaou smear with manual screeningon 03-03-2022 Thin prep Papanicolaou smear with manual screening 4 5-15 [facility] Work Phone: Basophil percentageon 2021 Chloride [Moles/Vol] 104 mmol/L 98-107 [facility] Work Phone: Glucose [Mass/Vol] 104 mg/dL 74-106 [facility] Work Phone: Comment on above: Fasting Glucose resu lt from 100 to 125 mg/dL suggests IMPAIRED HOMEOSTASIS per A.D.A. criteria. Potassium [Moles/Vol] 3.8 mmol/L 3.5-5.1 [facility] [facility] Work [facility]: Sodium [Moles/Vol] 139 mmol/L 136-145 [facility] Work Phone: WBC (Bld) [#/Vol] 7.4 10*3/uL 4.4-11.0 [facility] Work Phone: Blood erythrocytes count (nu mber/volume)on 02-02-2022 RBC (Bld) [#/Vol] 3.64 10*6/uL 4.6-6.2 [facility] Work Phone: Blood hemoglobin measurement (mass/volume)on 02-02-2022 Hemoglobin (Bld) [Mass/Vol] 10.5 g/dL 13.0-16.5 [facility] Work Phone: Blood platelet mean volumeon 02-02-2022 Platelet mean volume (Bld) [Entitic vol] 11.6 fL 6.2-12.0 [facility] Work Phone: Determination of erythrocyte mean corpuscular volume (MCV)on 02-02-2022 MCV (RBC) [Entitic vol] 91.2 fL 80-[address] [facility] Work Phone: Hematocrit Auto (Bld) [Volum e fraction]on 02-02-2022 Hematocrit (Bld) [Volume fraction] 33.2 % 40-54 [facility] Work Phone: Laboratory - Chemistry and C hemistry - challengeon 02-02-2022 CO2 [Moles/Vol] 30.0 mmol/L 21.0-32.0 [facility] Work Phone: Cobalamin (Vitamin B12) [Mass/Vol] 789 pg/mL 211-911 [facility] Work Phone: Urea nitrogen/Creatinine [Mass ratio] 11.1 mg/mg 10-20 [facility] Work Phone: Laboratory - Hematology and Cell countson 02-02-2022 Erythrocyte distribution width (RBC) [Entitic vol] 49.2 fL 35.1-43.9 [facility] Work Phone: Erythrocyte distribution width (RBC) [Ratio] 14.8 % 11.6-14.6 [facility] Work Phone: MCH (RBC) [Entitic mass] 28.8 pg 27.0-32.0 [facility] Work Phone: MCHC Auto (RBC) [Mass/Vol]on 02-02-2022 MCHC (RBC) [Mass/Vol] 31.6 g/dL 32-36 [facility] Work [facility]: No Panel Informationon 02-02 Estimated GFR (MDRD) Amer 72 mL/min >60 [facility] Work Phone: Comment on above: GFR Calc Estimated GFR (MDRD) Non-Af Amer 59 mL/min >60 [facility] Work Phone: Comment on above: Non- GFR Calc Platelets bldon 02-02-2022 Platelets (Bld) [#/Vol] 247 10*3/uL 150-450 [facility] Work Phone: Serum or plasma calcium maria l urement (mass/volume)on 02-02-2022 Calcium [Mass/Vol] 8.5 mg/dL 8.5-10.1 [facility] Work Phone: Serum or plasma creatinine m easurement (mass/volume)on 02-02-2022 Creatinine [Mass/Vol] 1.26 mg/dL 0.70-1.30 [facility] Work Phone: Comment on above: The validity of the calculated GFR & GFRAA in patients over 70 years has not been determined. Clinical correlation is essential. Serum or plasma urea nitroge n measurement (mass/volume)on 02-02-2022 Urea nitrogen [Mass/Vol] 14 mg/dL 7-18 [facility] Work Phone: Thin prep Papanicolaou smear with manual screeningon 02-02-2022 Thin prep Papanicolaou smear with manual screening 5 5-15 [facility] Work Phone: Basophil percentageon 2021 Chloride [Moles/Vol] 98 mmol/L 98-107 [facility] Work Phone: Glucose [Mass/Vol] 88 mg/dL 74-106 [facility] Work Phone: Potassium [Moles/Vol] 3.3 mmol/L 3.5-5.1 [facility] Work Phone: Sodium [Moles/Vol] 132 mmol/L 136-145 [facility] Work Phone: WBC (Bld) [#/Vol] 9.0 10*3/uL 4.4-11.0 [facility] Work Phone: Blood erythrocytes count (nu mber/volume)on 01-02-2022 RBC (Bld) [#/Vol] 3.67 10*6/uL 4.6-6.2 [facility] Work Phone: Blood hemoglobin measurement (mass/volume)on 01-02-2022 Hemoglobin (Bld) [Mass/Vol] 10.6 g/dL 13.0-16.5 [facility] Work Phone: Blood platelet mean volumeon 01-02-2022 Platelet mean volume (Bld) [Entitic vol] 12.0 fL 6.2-12.0 [facility] Work Phone: Determination of erythrocyte mean corpuscular volume (MCV)on 01-02-2022 MCV (RBC) [Entitic vol] 87.7 fL 80-[address] [facility] Work Phone: Hematocrit Auto (Bld) [Volum e fraction]on 01-02-2022 Hematocrit (Bld) [Volume fraction] 32.2 % 40-54 [facility] Work Phone: Laboratory - Chemistry and C hemistry - challengeon 01-02-2022 CO2 [Moles/Vol] 28.0 mmol/L 21.0-32.0 [facility] Work Phone: Urea nitrogen/Creatinine [Mass ratio] 10.3 mg/mg 10-20 [facility] Work Phone: Laboratory - Hematology and Cell countson 01-02-2022 Erythrocyte distribution width (RBC) [Entitic vol] 45.0 fL 35.1-43.9 [facility] Work Phone: Erythrocyte distribution width (RBC) [Ratio] 13.9 % 11.6-14.6 [facility] Work Phone: MCH (RBC) [Entitic mass] 28.9 pg 27.0-32.0 [facility] Work Phone: MCHC Auto (RBC) [Mass/Vol]on 01-02-2022 MCHC (RBC) [Mass/Vol] 32.9 g/dL 32-36 [facility] Work Phone: No Panel Informationon 01-02 Estimated GFR (MDRD) Amer 61 mL/min >60 [facility] Work Phone: Comment on above: GFR Calc Estimated GFR (MDRD) Non-Af Amer 50 mL/min >60 [facility] Work Phone: Comment on above: Non- GFR Calc Platelets bldon 01-02-2022 Platelets (Bld) [#/Vol] 234 10*3/uL 150-450 [facility] Work Phone: Serum or plasma calcium maria l urement (mass/volume)on 01-02-2022 Calcium [Mass/Vol] 8.0 mg/dL 8.5-10.1 [facility] Work Phone: Serum or plasma creatinine m easurement (mass/volume)on 01-02-2022 Creatinine [Mass/Vol] 1.45 mg/dL 0.70-1.30 [facility] Work Phone: Comment on above: The validity of the calculated GFR & GFRAA in patients over 70 years has not been determined. Clinical correlation is essential. Serum or plasma urea nitroge n measurement (mass/volume)on 01-02-2022 Urea nitrogen [Mass/Vol] 15 mg/dL 7-18 [facility] Work Phone: Thin prep Papanicolaou smear with manual screeningon 01-02-2022 Thin prep Papanicolaou smear with manual screening 6 5-15 [facility] Work Phone: Basophil percentageon 2021 Chloride [Moles/Vol] 101 mmol/L 98-107 [facility] Work Phone: Glucose [Mass/Vol] 99 mg/dL 74-106 [facility] Work Phone: Potassium [Moles/Vol] 3.7 mmol/L 3.5-5.1 [facility] Work Phone: Sodium [Moles/Vol] 136 mmol/L 136-145 [facility] Work Phone: Laboratory - Chemistry and C hemistry - challengeon 12-17-2021 CO2 [Moles/Vol] 32.0 mmol/L 21.0-32.0 [facility] Work Phone: Urea nitrogen/Creatinine [Mass ratio] 13.3 mg/mg 10-20 [facility] Work Phone: No Panel Informationon 12-17 Estimated GFR (MDRD) Amer 88 mL/min >60 [facility] Work Phone: Comment on above: GFR Calc Estimated GFR (MDRD) Non-Af Amer 73 mL/min >60 [facility] Work Phone: Comment on above: Non- GFR Calc Serum or plasma calcium maria l urement (mass/volume)on 12-17-2021 Calcium [Mass/Vol] 8.2 mg/dL 8.5-10.1 [facility] Work Phone: Serum or plasma creatinine m easurement (mass/volume)on 12-17-2021 Creatinine [Mass/Vol] 1.05 mg/dL 0.70-1.30 [facility] Work Phone: Comment on above: The validity of the calculated GFR & GFRAA in patients over 70 years has not been determined. Clinical correlation is essential. Serum or plasma urea nitroge n measurement (mass/volume)on 12-17-2021 Urea nitrogen [Mass/Vol] 14 mg/dL 7-18 [facility] Work Phone: Thin prep Papanicolaou smear with manual screeningon 12-17-2021 Thin prep Papanicolaou smear with manual screening 3 5-15 [facility] Work Phone: Basophil percentageon 2021 Chloride [Moles/Vol] 95 mmol/L 98-107 [facility] Work Phone: Cholesterol [Mass/Vol] 107 mg/dL <200 [facility] Work Phone: Comment on above: <200 mg/dL Desirable 200-240 mg/dL Borderline >240 mg/dL High Risk Glucose [Mass/Vol] 84 mg/dL 74-106 [facility] Work Phone: Potassium [Moles/Vol] 4.3 mmol/L 3.5-5.1 [facility] Work Phone: Sodium [Moles/Vol] 128 mmol/L 136-145 [facility] Work Phone: Triglyceride [Mass/Vol] 81 mg/dL <[address] [facility] Work Phone: Comment on above: The drugs N-Acetylcy steine and Metamizole may falsely depress this assay.Serum Triglycerides Reference Interval Normal <150 mg/dL Borderline high 150 - 199 mg/dL High 200 - 499 mg/dL Very High > or = 500 mg/dL WBC (Bld) [#/Vol] 11.1 10*3/uL 4.4-11.0 [facility] Work Phone: Blood erythrocytes count (nu mber/volume)on 12-02-2021 RBC (Bld) [#/Vol] 3.81 10*6/uL 4.6-6.2 [facility] Work Phone: Blood hemoglobin measurement (mass/volume)on 12-02-2021 Hemoglobin (Bld) [Mass/Vol] 11.0 g/dL 13.0-16.5 [facility] Work Phone: Blood platelet mean volumeon 12-02-2021 Platelet mean volume (Bld) [Entitic vol] 12.1 fL 6.2-12.0 [facility] Work Phone: Determination of erythrocyte mean corpuscular volume (MCV)on 12-02-2021 MCV (RBC) [Entitic vol] 85.6 fL 80-[address] [facility] Work Phone: Hematocrit Auto (Bld) [Volum e fraction]on 12-02-2021 Hematocrit (Bld) [Volume fraction] 32.6 % 40-54 [facility] Work Phone: Laboratory - Chemistry and C hemistry - challengeon 12-02-2021 CO2 [Moles/Vol] 27.0 mmol/L 21.0-32.0 [facility] Work Phone: Urea nitrogen/Creatinine [Mass ratio] 10.6 mg/mg 10-20 [facility] Work Phone: Laboratory - Hematology and Cell countson 12-02-2021 Erythrocyte distribution width (RBC) [Entitic vol] 41.9 fL 35.1-43.9 [facility] Work Phone: Erythrocyte distribution width (RBC) [Ratio] 13.4 % 11.6-14.6 [facility] Work Phone: MCH (RBC) [Entitic mass] 28.9 pg 27.0-32.0 [facility] Work Phone: MCHC Auto (RBC) [Mass/Vol]on 12-02-2021 MCHC (RBC) [Mass/Vol] 33.7 g/dL 32-36 [facility] Work Phone: No Panel Informationon 12-02 Estimated GFR (MDRD) Amer 38 mL/min >60 [facility] Work Phone: Comment on above: GFR Calc Estimated GFR (MDRD) Non-Af Amer 32 mL/min >60 [facility] Work Phone: Comment on above: Non- GFR Calc Thyroid Stimulating Hormone (TSH) 2.27 uIU/mL 0.358-3.74 [facility] Work Phone: Platelets bldon 12-02-2021 Platelets (Bld) [#/Vol] 226 10*3/uL 150-450 [facility] Work Phone: Serum or plasma calcium maria l urement (mass/volume)on 12-02-2021 Calcium [Mass/Vol] 8.2 mg/dL 8.5-10.1 [facility] Work Phone: Serum or plasma cholesterol in HDL measurement (mass/volume)on 12-02-2021 Cholesterol in HDL [Mass/Vol] 36 mg/dL >40 [facility] Work Phone: Comment on above: The drugs N-Acetylcy steine and Metamizole may falsely depress this assay. Reference Range HDL <40 mg/dL Low HDL Cholesterol HDL >or= 60 mg/dL High HDL Cholesterol Serum or plasma cholesterol in VLDL measurement (mass/volume)on 12-02-2021 Cholesterol in VLDL [Mass/Vol] 16 mg/dL 5-40 [facility] Work Phone: Serum or plasma creatinine m easurement (mass/volume)on 12-02-2021 Creatinine [Mass/Vol] 2.17 mg/dL 0.70-1.30 [facility] Work Phone: Comment on above: The validity of the calculated GFR & GFRAA in patients over 70 years has not been determined. Clinical correlation is essential. Serum or plasma low density lipoprotein (LDL) cholesterol measurement (mass/volume)on 12-02-2021 Cholesterol in LDL [Mass/Vol] 55 mg/dL 0-130 [facility] Work Phone: Serum or plasma urea nitroge n measurement (mass/volume)on 12-02-2021 Urea nitrogen [Mass/Vol] 23 mg/dL 7-18 [facility] Work Phone: Thin prep Papanicolaou smear with manual screeningon 12-02-2021 Thin prep Papanicolaou smear with manual screening 6 5-15 [facility] Work Phone: Whole blood hemoglobin A1c/t otal hemoglobin ratio (mass fraction)on 12-02-2021 HbA1c (Bld) [Mass fraction] 5.9 % 3.8-5.6 [facility] Work Phone: Comment on above: Normal < 5.7 % Predi abetic 5.7 - 6.4 % Diabetic >or= 6.5 % Please note range changes. Basophil percentageon 2021 Chloride [Moles/Vol] 104 mmol/L 98-107 [facility] Work Phone: Glucose [Mass/Vol] 90 mg/dL 74-106 [facility] Work Phone: Potassium [Moles/Vol] 3.6 mmol/L 3.5-5.1 [facility] Work Phone: Sodium [Moles/Vol] 139 mmol/L 136-145 [facility] Work Phone: WBC (Bld) [#/Vol] 8.2 10*3/uL 4.4-11.0 [facility] Work Phone: Blood erythrocytes count (nu mber/volume)on 11-03-2021 RBC (Bld) [#/Vol] 4.23 10*6/uL 4.6-6.2 [facility] Work Phone: Blood hemoglobin measurement (mass/volume)on 11-03-2021 Hemoglobin (Bld) [Mass/Vol] 12.5 g/dL 13.0-16.5 [facility] Work Phone: Blood platelet mean volumeon 11-03-2021 Platelet mean volume (Bld) [Entitic vol] 11.8 fL 6.2-12.0 [facility] Work Phone: Determination of erythrocyte mean corpuscular volume (MCV)on 11-03-2021 MCV (RBC) [Entitic vol] 89.4 fL 80-[address] [facility] Work Phone: Hematocrit Auto (Bld) [Volum e fraction]on 11-03-2021 Hematocrit (Bld) [Volume fraction] 37.8 % 40-54 [facility] Work Phone: Laboratory - Chemistry and C hemistry - challengeon 11-03-2021 CO2 [Moles/Vol] 32.0 mmol/L 21.0-32.0 [facility] Work Phone: Urea nitrogen/Creatinine [Mass ratio] 13.6 mg/mg 10-20 [facility] Work Phone: Laboratory - Hematology and Cell countson 11-03-2021 Erythrocyte distribution width (RBC) [Entitic vol] 45.1 fL 35.1-43.9 [facility] Work Phone: Erythrocyte distribution width (RBC) [Ratio] 13.9 % 11.6-14.6 [facility] Work Phone: MCH (RBC) [Entitic mass] 29.6 pg 27.0-32.0 [facility] Work Phone: MCHC Auto (RBC) [Mass/Vol]on 11-03-2021 MCHC (RBC) [Mass/Vol] 33.1 g/dL 32-36 [facility] Work Phone: No Panel Informationon 11-03 Estimated GFR (MDRD) Amer 90 mL/min >60 [facility] Work Phone: Comment on above: GFR Calc Estimated GFR (MDRD) Non-Af Amer 75 mL/min >60 [facility] Work Phone: Comment on above: Non- GFR Calc Platelets bldon 11-03-2021 Platelets (Bld) [#/Vol] 227 10*3/uL 150-450 [facility] Work Phone: Serum or plasma calcium maria l urement (mass/volume)on 11-03-2021 Calcium [Mass/Vol] 8.3 mg/dL 8.5-10.1 [facility] Work Phone: Serum or plasma creatinine m easurement (mass/volume)on 11-03-2021 Creatinine [Mass/Vol] 1.03 mg/dL 0.70-1.30 [facility] Work Phone: Comment on above: The validity of the calculated GFR & GFRAA in patients over 70 years has not been determined. Clinical correlation is essential. Serum or plasma urea nitroge n measurement (mass/volume)on 11-03-2021 Urea nitrogen [Mass/Vol] 14 mg/dL 7-18 [facility] Work Phone: Thin prep Papanicolaou smear with manual screeningon 11-03-2021 Thin prep Papanicolaou smear with manual screening 3 5-15 [facility] Work Phone: Basophil percentageon 2021 Chloride [Moles/Vol] 105 mmol/L 98-107 [facility] Work Phone: Glucose [Mass/Vol] 60 mg/dL 74-106 [facility] Work Phone: Potassium [Moles/Vol] 3.4 mmol/L 3.5-5.1 [facility] Work Phone: Sodium [Moles/Vol] 137 mmol/L 136-145 [facility] Work Phone: WBC (Bld) [#/Vol] 7.6 10*3/uL 4.4-11.0 [facility] Work Phone: Blood erythrocytes count (nu mber/volume)on 10-06-2021 RBC (Bld) [#/Vol] 4.11 10*6/uL 4.6-6.2 [facility] Work Phone: Blood hemoglobin measurement (mass/volume)on 10-06-2021 Hemoglobin (Bld) [Mass/Vol] 12.1 g/dL 13.0-16.5 [facility] Work Phone: Blood platelet mean volumeon 10-06-2021 Platelet mean volume (Bld) [Entitic vol] 11.6 fL 6.2-12.0 [facility] Work Phone: Determination of erythrocyte mean corpuscular volume (MCV)on 10-06-2021 MCV (RBC) [Entitic vol] 88.3 fL 80-[address] [facility] Work Phone: Hematocrit Auto (Bld) [Volum e fraction]on 10-06-2021 Hematocrit (Bld) [Volume fraction] 36.3 % 40-54 [facility] Work Phone: Laboratory - Chemistry and C hemistry - challengeon 10-06-2021 CO2 [Moles/Vol] 31.0 mmol/L 21.0-32.0 [facility] Work Phone: Urea nitrogen/Creatinine [Mass ratio] 11.7 mg/mg 10-20 [facility] Work Phone: Laboratory - Hematology and Cell countson 10-06-2021 Erythrocyte distribution width (RBC) [Entitic vol] 45.5 fL 35.1-43.9 [facility] Work Phone: Erythrocyte distribution width (RBC) [Ratio] 14.1 % 11.6-14.6 [facility] Work Phone: MCH (RBC) [Entitic mass] 29.4 pg 27.0-32.0 [facility] Work Phone: MCHC Auto (RBC) [Mass/Vol]on 10-06-2021 MCHC (RBC) [Mass/Vol] 33.3 g/dL 32-36 [facility] Work Phone: No Panel Informationon 10-06 Estimated GFR (MDRD) Amer 90 mL/min >60 [facility] Work Phone: Comment on above: GFR Calc Estimated GFR (MDRD) Non-Af Amer 75 mL/min >60 [facility] Work Phone: Comment on above: Non- GFR Calc Platelets bldon 10-06-2021 Platelets (Bld) [#/Vol] 242 10*3/uL 150-450 [facility] Work Phone: Serum or plasma calcium maria l urement (mass/volume)on 10-06-2021 Calcium [Mass/Vol] 8.5 mg/dL 8.5-10.1 [facility] Work Phone: Serum or plasma creatinine m easurement (mass/volume)on 10-06-2021 Creatinine [Mass/Vol] 1.03 mg/dL 0.70-1.30 [facility] Work Phone: Comment on above: The validity of the calculated GFR & GFRAA in patients over 70 years has not been determined. Clinical correlation is essential. Serum or plasma urea nitroge n measurement (mass/volume)on 10-06-2021 Urea nitrogen [Mass/Vol] 12 mg/dL 7-18 [facility] Work Phone: Thin prep Papanicolaou smear with manual screeningon 10-06-2021 Thin prep Papanicolaou smear with manual screening 1 5-15 [facility] Work Phone: Basophil percentageon 2021 Chloride [Moles/Vol] 101 mmol/L 98-[address] [facility] [address] [facility] Work Phone: Glucose [Mass/Vol] 75 mg/dL 74-106 [facility] Work Phone: Potassium [Moles/Vol] 3.5 mmol/L 3.5-5.1 [facility] Work Phone: Sodium [Moles/Vol] 135 mmol/L 136-145 [facility] Work Phone: WBC (Bld) [#/Vol] 8.4 10*3/uL 4.4-11.0 [facility] Work Phone: Blood erythrocytes count (nu mber/volume)on 09-03-2021 RBC (Bld) [#/Vol] 3.92 10*6/uL 4.6-6.2 [facility] Work Phone: Blood hemoglobin measurement (mass/volume)on 09-03-2021 Hemoglobin (Bld) [Mass/Vol] 11.5 g/dL 13.0-16.5 [facility] Work Phone: Blood platelet mean volumeon 09-03-2021 Platelet mean volume (Bld) [Entitic vol] 12.1 fL 6.2-12.0 [facility] Work Phone: Determination of erythrocyte mean corpuscular volume (MCV)on 09-03-2021 MCV (RBC) [Entitic vol] 89.3 fL 80-[address] [facility] Work Phone: Hematocrit Auto (Bld) [Volum e fraction]on 09-03-2021 Hematocrit (Bld) [Volume fraction] 35.0 % 40-54 [facility] Work Phone: Laboratory - Chemistry and C hemistry - challengeon 09-03-2021 CO2 [Moles/Vol] 30.0 mmol/L 21.0-32.0 [facility] Work Phone: Urea nitrogen/Creatinine [Mass ratio] 11.7 mg/mg 10-20 [facility] Work Phone: Laboratory - Hematology and Cell countson 09-03-2021 Erythrocyte distribution width (RBC) [Entitic vol] 44.5 fL 35.1-43.9 [facility] Work Phone: Erythrocyte distribution width (RBC) [Ratio] 13.7 % 11.6-14.6 [facility] Work Phone: MCH (RBC) [Entitic mass] 29.3 pg 27.0-32.0 [facility] Work Phone: MCHC Auto (RBC) [Mass/Vol]on 09-03-2021 MCHC (RBC) [Mass/Vol] 32.9 g/dL 32-36 [facility] Work Phone: No Panel Informationon 09-03 Estimated GFR (MDRD) Amer 83 mL/min >60 [facility] Work Phone: Comment on above: GFR Calc Estimated GFR (MDRD) Non-Af Amer 69 mL/min >60 [facility] Work Phone: Comment on above: Non- GFR Calc Platelets bldon 09-03-2021 Platelets (Bld) [#/Vol] 213 10*3/uL 150-450 [facility] Work Phone: Serum or plasma calcium maria l urement (mass/volume)on 09-03-2021 Calcium [Mass/Vol] 8.2 mg/dL 8.5-10.1 [facility] Work Phone: Serum or plasma creatinine m easurement (mass/volume)on 09-03-2021 Creatinine [Mass/Vol] 1.11 mg/dL 0.70-1.30 [facility] Work Phone: Comment on above: The validity of the calculated GFR & GFRAA in patients over 70 years has not been determined. Clinical correlation is essential. Serum or plasma urea nitroge n measurement (mass/volume)on 09-03-2021 Urea nitrogen [Mass/Vol] 13 mg/dL 7-18 [facility] Work Phone: Thin prep Papanicolaou smear with manual screeningon 09-03-2021 Thin prep Papanicolaou smear with manual screening 4 5-15 [facility] Work Phone: Basophil percentageon 2020 Chloride [Moles/Vol] 102 mmol/L 98-107 [facility] Work Phone: Glucose [Mass/Vol] 80 mg/dL 74-106 [facility] Work Phone: Comment on above: Please note revised GLUCOSE reference range effective 2017. Potassium [Moles/Vol] 3.6 mmol/L 3.5-5.1 [facility] Work Phone: Sodium [Moles/Vol] 137 mmol/L 136-145 [facility] Work Phone: Laboratory - Chemistry and C hemistry - challengeon 08-04-2021 CO2 [Moles/Vol] 30.0 mmol/L 21.0-32.0 [facility] Work Phone: Urea nitrogen/Creatinine [Mass ratio] 8.3 mg/mg 10-20 [facility] Work Phone: No Panel Informationon 08-04 Estimated GFR (MDRD) Amer 76 mL/min >60 [facility] Work Phone: Comment on above: GFR Calc Estimated GFR (MDRD) Non-Af Amer 63 mL/min >60 [facility] Work Phone: Comment on above: Non- GFR Calc Serum or plasma calcium maria l urement (mass/volume)on 08-04-2021 Calcium [Mass/Vol] 8.5 mg/dL 8.5-10.1 [facility] Work Phone: Serum or plasma creatinine m easurement (mass/volume)on 08-04-2021 Creatinine [Mass/Vol] 1.20 mg/dL 0.70-1.30 [facility] Work Phone: Comment on above: The validity of the calculated GFR & GFRAA in patients over 70 years has not been determined. Clinical correlation is essential. Serum or plasma urea nitroge n measurement (mass/volume)on 08-04-2021 Urea nitrogen [Mass/Vol] 10 mg/dL 7-18 [facility] Work Phone: Thin prep Papanicolaou smear with manual screeningon 08-04-2021 Thin prep Papanicolaou smear with manual screening 5 5-15 [facility] Work Phone: Basophil percentageon 2020 Chloride [Moles/Vol] 103 mmol/L 98-107 [facility] Work Phone: Glucose [Mass/Vol] 116 mg/dL 74-106 [facility] Work Phone: Comment on above: Fasting Glucose resu lt from 100 to 125 mg/dL suggests IMPAIRED HOMEOSTASIS per A.D.A. criteria.Please note revised GLUCOSE reference range effective 2017. Potassium [Moles/Vol] 3.7 mmol/L 3.5-5.1 [facility] Work Phone: Sodium [Moles/Vol] 138 mmol/L 136-145 [facility] Work Phone: WBC (Bld) [#/Vol] 9.8 10*3/uL 4.4-11.0 [facility] Work Phone: Blood erythrocytes count (nu mber/volume)on 07-29-2021 RBC (Bld) [#/Vol] 3.78 10*6/uL 4.6-6.2 [facility] Work Phone: Blood hemoglobin measurement (mass/volume)on 07-29-2021 Hemoglobin (Bld) [Mass/Vol] 11.1 g/dL 13.0-16.5 [facility] Work Phone: Blood platelet mean volumeon 07-29-2021 Platelet mean volume (Bld) [Entitic vol] 11.6 fL 6.2-12.0 [facility] Work Phone: Determination of erythrocyte mean corpuscular volume (MCV)on 07-29-2021 MCV (RBC) [Entitic vol] 90.5 fL 80-[address] [facility] Work Phone: Hematocrit Auto (Bld) [Volum e fraction]on 07-29-2021 Hematocrit (Bld) [Volume fraction] 34.2 % 40-54 [facility] Work Phone: Laboratory - Chemistry and C hemistry - challengeon 07-29-2021 CO2 [Moles/Vol] 30.0 mmol/L 21.0-32.0 [facility] Work Phone: Urea nitrogen/Creatinine [Mass ratio] 11.1 mg/mg 10-20 [facility] Work Phone: Laboratory - Hematology and Cell countson 07-29-2021 Erythrocyte distribution width (RBC) [Entitic vol] 47.4 fL 35.1-43.9 [facility] Work Phone: Erythrocyte distribution width (RBC) [Ratio] 14.2 % 11.6-14.6 [facility] Work Phone: MCH (RBC) [Entitic mass] 29.4 pg 27.0-32.0 [facility] Work Phone: MCHC Auto (RBC) [Mass/Vol]on 07-29-2021 MCHC (RBC) [Mass/Vol] 32.5 g/dL 32-36 [facility] Work Phone: No Panel Informationon 07-29 Estimated GFR (MDRD) Amer 78 mL/min >60 [facility] Work Phone: Comment on above: GFR Calc Estimated GFR (MDRD) Non-Af Amer 64 mL/min >60 [facility] Work Phone: Comment on above: Non- GFR Calc Platelets bldon 07-29-2021 Platelets (Bld) [#/Vol] 221 10*3/uL 150-450 [facility] Work Phone: Serum or plasma calcium maria l urement (mass/volume)on 07-29-2021 Calcium [Mass/Vol] 8.1 mg/dL 8.5-10.1 [facility] Work Phone: Serum or plasma creatinine m easurement (mass/volume)on 07-29-2021 Creatinine [Mass/Vol] 1.17 mg/dL 0.70-1.30 [facility] Work Phone: Comment on above: The validity of the calculated GFR & GFRAA in patients over 70 years has not been determined. Clinical correlation is essential. Serum or plasma urea nitroge n measurement (mass/volume)on 07-29-2021 Urea nitrogen [Mass/Vol] 13 mg/dL 7-18 [facility] Work Phone: Thin prep Papanicolaou smear with manual screeningon 07-29-2021 Thin prep Papanicolaou smear with manual screening 5 5-15 [facility] Work Phone: Culture, urine Bacteria identified Cx Nom (U) Proteus mirabilis [facility] Work Phone: Bacteria identified Cx Nom (U) Enterococcus faecalis [facility] Work Phone: Vital Signs Date Time Vital Sign Value Performing Clinician Garfield enriquez 06-02-2022 09:00-0400 Body height 167.6 cm Jordan Jordan Jr., MD Work Phone: [facility] 06-02-2022 09:00-0400 Body weight 98.97 kg Jordan Jordan Jr., MD Work Phone: [facility] 04-11-2022 06:57-0400 Diastolic blood pressure 74 mm[Hg] [facility] Work Phone: 04-11-2022 06:57-0400 Heart rate 64 /min [facility] Work Phone: 04-11-2022 06:57-0400 Respiratory rate 18 /min [facility] Work Phone: 04-11-2022 06:57-0400 Systolic blood pressure 159 mm[Hg] [facility] Work Phone: 04-11-2022 05:03-0400 SaO2% (BldA) [Mass fraction] 94 % [facility] Work Phone: 04-10-2022 19:37-0400 Body temperature 98.7 [degF] [facility] Work Phone: 04-10-2022 16:33-0400 Body height 167.64 cm [facility] Work Phone: 04-10-2022 16:33-0400 Body mass index (BMI) [Ratio] 35.4 kg/m2 [facility] Work Phone: 04-10-2022 16:33-0400 Body weight 99.4 kg [facility] Work Phone: 04-10-2022 09:00-0400 Body height 167.6 cm Ousmane Durand MD Work Phone: [facility] 04-10-2022 09:00-0400 Body weight 95.98 kg Ousmane Durand MD Work Phone: [facility] Encounters Encounter Date Encounter Type Care Provider Facility Start: 05-04-2025 ambulatory Aura Sky OLS Facil ity:[facility] Start: 04-05-2025 ambulatory Aura Sky OLS Facil ity:[facility] Start: 04-03-2025 ambulatory Aura Sky OLS Facil ity:[facility] Start: 03-05-2025 ambulatory Aura Sky Facility: [facility] Start: 02-01-2025 ambulatory Aura Sky Facility: [facility] Start: 02-01-2025 Registered Referred Aura Sky MD - [facility] Start: 01-02-2025 End: 01-02-[address] Aura Sky MD Work Phone: [facility] Start: 01-02-2025 End: 01-02-2025 Departed Referred Aura Sky MD -[facility] Start: 01-02-2025 End: 01-02-2025 ambulatory Aura Sky Facility:[facility] Start: 12-08-2024 End: 12-08-[address] Aura Sky MD Work Phone: [facility] Work Phone: Start: 12-08-2024 End: 12-08-2024 [facility]ed [facility] Start: 12-08-2024 End: 12-08-2024 ambulatory Aura Sky Facility:[facility] Start: 11-30-2024 End: 11-30-2024 [facility]: 11-30-[facility]24 Registered Referred Aura Sky MD [facility] Start: 11-30-2024 End: 11-30-2024 ambulatory Aura Sky OLS Facility:[facility] Start: 11-01-2024 End: 11-01-[address] Aura Sky MD Work Phone: [facility] Work Phone: Start: 11-01-2024 End: 11-01-2024 Departed Referred [facility] Start: 11-01-2024 End: 11-01-2024 ambulatory Aura Sky OLS Facility:[facility] Start: 10-03-2024 ambulatory Aura Sky OLS Facil ity:[facility] Start: 10-03-2024 Registered Referred Aura Sky MD [facility] Start: 09-04-2024 ambulatory Aura Sky OLS Facil ity:[facility] Start: 09-04-2024 Registered Referred Aura Sky MD [facility] Start: 08-03-2024 End: 08-03-2024 Departed Referred [facility] Start: 08-03-2024 End: 08-03-2024 ambulatory Aura Sky OLS Facility:[facility] Start: 07-03-2024 End: 07-03-2024 ambulatory Aura Sky OLS Facility:[facility] Start: 06-05-2024 End: 06-05-2024 ambulatory Aura CORONADO Facility:[facility] Start: 06-02-2024 End: 06-02-2024 ambulatory Aura Sky OLS Facility:[facility] Start: 11-02-2023 End: 11-02-2023 ambulatory [facility] Work Phone: Start: 11-02-2023 End: 11-02-2023 Departed Referred [facility] Start: 10-27-2023 End: 10-27-2023 ambulatory [facility] Work Phone: Start: 10-27-2023 End: 10-27-2023 Departed Referred [facility] Start: 09-29-2023 End: 09-29-2023 ambulatory [facility] Work Phone: Start: 09-29-2023 End: 09-29-2023 Departed Referred [facility] Start: 09-03-2023 End: 09-03-2023 ambulatory [facility] Work Phone: Start: 09-03-2023 End: 09-03-2023 Departed Referred [facility] Start: 06-03-2023 End: 06-03-2023 ambulatory [facility] Work Phone: Start: 06-03-2023 End: 06-03-2023 Departed Referred [facility] Start: 03-03-2023 End: 03-03-2023 ambulatory [facility] Work Phone: Start: 03-03-2023 End: 03-03-2023 Departed Referred [facility] Start: 01-01-2023 End: 01-01-2023 Departed Referred [facility] Start: 12-02-2022 End: 12-02-2022 ambulatory [facility] Work Phone: Start: 12-02-2022 End: 12-02-2022 Departed Referred [facility] Start: 11-02-2022 End: 11-02-2022 ambulatory [facility] Work Phone: Start: 11-02-2022 End: 11-02-2022 Departed Referred [facility] Start: 11-02-2022 Registered Referred [facility] Start: 10-07-2022 End: 10-07-2022 ambulatory [facility] Work Phone: Start: 10-07-2022 End: 10-07-2022 Departed Referred [facility] Start: 10-05-2022 End: 10-05-2022 Departed Referred [facility] Start: 09-03-2022 End: 09-03-2022 ambulatory [facility] Work Phone: Start: 09-03-2022 End: 09-03-2022 Departed Referred [facility] Start: 08-04-2022 End: 08-04-2022 ambulatory [facility] Work Phone: Start: 08-04-2022 End: 08-04-2022 Departed Referred [facility] Start: 08-04-2022 Registered Referred [facility] Start: 07-06-2022 End: 07-06-2022 ambulatory [facility] Work Phone: Start: 07-06-2022 End: 07-06-2022 Departed Referred [facility] Start: 06-02-2022 End: 06-02-2022 Patient encounter procedure Jordan Jordan MD Work Phone: Urology Comment on above: Urinary retention (P rimary Dx) Start: 06-02-2022 End: 06-02-2022 ambulatory JORDAN JORDAN JR Facility:[facility] Start: 06-02-2022 End: 06-02-2022 Departed Referred [facility] Start: 05-04-2022 End: 05-04-2022 ambulatory [facility] Work Phone: Start: 05-04-2022 End: 05-04-2022 Departed Referred [facility] Start: 04-10-2022 End: 04-11-2022 Emergency department patient visit [facility] Start: 04-10-2022 End: 04-10-2022 ambulatory [facility] Facility:[facility] Start: 04-10-2022 End: 04-10-2022 Patient encounter procedure Ousmane Durand MD Work Phone: Urology Comment on above: Urine retention (Dodie antonino Dx); Benign prostatic hyperplasia with urinary retention Start: 04-03-2022 End: 04-03-2022 ambulatory [facility] Work Phone: Start: 04-03-2022 End: 04-03-2022 Departed Referred [facility] Start: 03-03-2022 Registered Referred [facility] Start: 02-02-2022 End: 02-02-2022 Departed Referred [facility] Start: 01-02-2022 End: 01-02-2022 Departed Referred [facility] Start: 12-17-2021 End: 12-17-2021 Departed Referred [facility] Start: 12-02-2021 End: 12-02-2021 Departed Referred [facility] Start: 12-02-2021 Registered Referred [facility] Start: 11-03-2021 End: 11-03-2021 Departed Referred [facility] Start: 11-03-2021 Registered Referred [facility] Start: 10-06-2021 End: 10-06-2021 Departed Referred [facility] Start: 10-06-2021 Registered Referred [facility] Start: 09-03-2021 End: 09-03-2021 Departed Referred [facility] Start: 08-04-2021 Registered Referred [facility] Start: 07-29-2021 Registered Referred [facility] Procedures Date Procedure Procedure Detail Performing [...] profile DTAP,TDAP,TD (2 - Td or Tdap) [facility] Start: 04-09-2022 Influenza vaccination INFLUENZA (#1) [facility] Start: 09-20-2021 COVID-19 VACCINE (4 - Booster for Pfizer series) COVID-19 VACCINE (4 - Booster for Pfizer series) [facility] Start: 08-09-2021 ADVANCE DIRECTIVE DISCUSSION ADVANCE DIRECTIVE DISCUSSION [facility] Start: 08-09-2021 DEPRESSION ASSESSMENT DEPRESSION ASS ESSMENT [facility] Start: 07-15-2021 COVID-19 VACCINE (4 - Booster for Pfizer series) COVID-19 VACCINE (4 - Booster for Pfizer series) [facility] Start: 02-20-2017 Adult depression screening assessment DEPRESSION SCREENING [facility] Start: 10-03-2016 Hepatitis B screening URINE ALBUMIN:CREATININE RATIO [facility] Start: 10-03-2016 Hepatitis B surface antibody level LDL CHOLESTEROL [facility] Start: 06-19-2016 Hemoglobin A1c/Hemoglobin.total in Blood HBA1C [facility] Start: 06-12-2016 3 comp foot exam completed DIABETIC FOOT EXAM [facility] Start: 06-12-2016 PNEUMOCOCCAL: 65+ (2 - PPSV23 if available, else PCV20) PNEUMOCOCCAL: 65+ (2 - PPSV23 if available, else PCV20) [facility] Start: 06-12-2016 PNEUMOCOCCAL: 65+ (2 - PPSV23 or PCV20) PNEUMOCOCCAL: 65+ (2 - PPSV23 or PCV20) [facility] Start: 1995 SHINGRIX VACCINE (1 of 2) SHINGRIX VACCINE (1 of 2) [facility] Start: 1963 ANNUAL PCP TEAM CASE THERAPIST SAVANNA DISEASE VISIT ANNUAL PCP TEAM CHRONIC DISEASE VISIT [facility] Start: 1963 BP CONTROLLED (<130/80) BP CONTROLLE D (<130/80) [facility] Start: 1963 HEPATITIS C SCREENING HEPATITIS C GRAZYNA BAEZA [facility] Start: 1955 Hepatitis C antibody , confirmatory test DILATED RETINAL EXAM [facility] Patient referral [facility] Work Phone: Immunizations Immunization Date Immunization Notes Care Provider Fa cili 07-08-2020 tetanus toxoid, reduced diphtheria toxoid, and acellular pertussis vaccine, adsorbed [facility] 10-10-2015 tetanus toxoid, reduced diphtheria toxoid, and acellular pertussis vaccine, adsorbed Ousmane Durand MD Work Phone: [facility] Work Phone: 06-12-2015 influenza, injectable, quadrivalent, contains preservative Ousmane Durand MD Work Phone: [facility] Work Phone: 06-12-2015 pneumococcal conjugate vaccine, 13 valent Ousmane Durand MD Work Phone: [facility] Work Phone: Payers Date Payer Category Payer Self-pay [id number] 2024 [facility] [id number] 2014 Medicaid [facility] MEDICAID [employer] [facility] MEDICAID [id number] 2014-Present [phone] [address] [place] [address] Medicaid [id number] 2014 Medicare [facility] MEDICARE [employer] [facility] MEDICARE [id number] 2014-Present [phone] [address] [place] [address] Medicare [id number] 2014 Unknown [id number] Unknown [id number] Unknown [id number] Unknown [id number] Unknown [id number] Unknown [id number] Unknown [id number] Unknown [id number] Unknown [id number] Unknown [id number] Unknown [id number] Unknown [id number] Unknown [id number] Unknown [id number] Unknown [id number] Social History Date Type Detail Facility Start: 08-03-2020 End: 04-10-2022 Tobacco smoking status MAIS Unknown if ever smoked [facility] Start: 08-03-2020 None [facility] Start: 08-03-2020 - [facility] Start: 12-18-2015 Non-smoker [facility] Start: 1945 Sex Assigned At Male [facility] Start: 02-26-2016 End: 04-10-2022 Tobacco smoking status NHIS Never smoked tobacco [facility] Start: 02-26-2016 Tobacco use and exposure Smokeless tobacco non-user [facility] Start: 04-10-2022 End: 06-02-2022 Alcohol intake Current non-drinker of alcohol (finding) [facility] Start: 1945 Sex Assigned At Not on file C [facility] Start: 03-31-2022 End: 06-02-2022 Exposure to SARS-CoV-2 (event) Not sure [facility] Start: 11-23-2024 Sex Male (finding) [facility] Medical Equipment Procedure Code Equipment Code Equipment Origin al Text Equipment Identifier Dates Start: 12-23-2015 Comment on above: Check blood sugars o nce a day. Check blood sugar on ce daily. Dx: E11.40. Mental Status Date Assessment Result Facility 04-10-2022 Cognitive function Level Of Cons ciousness Awake;Alert;Inappropriate;Rest less [facility] Work Phone: Progress note 06-02-2022 Note Date & Type Note Facility 06-02-2022 Note HNO ID: [id number] Author: Jordan Jordan Jr., MD Service: ? Author Type: Physician Type: Progress Notes Filed: 06/02/2022 9:14 AM Note Text: ESTABLISHED PATIENT OFFICE VISIT HPI Elaine Corea [...] (no units) Date Value 01/09/2016 neg Specific [place], Ur (no units) Date Value 01/09/2016 1.010 [...] mouth daily at bedtime. blood sugar diagnostic (TUTORizeTOUCH ULTRA TEST) test strip Check blood sugars [...] (HCC) 03/11/[address] Krause at the [facility] center Type 2 diabetes, uncontrolled, with neuropathy [...] well nourished Skin: (more content not included)... [facility] History of Present illness Narrative [...] (no units) Date Value 01/09/2016 neg Specific [place], Ur (no units) Date Value 01/09/2016 1.010 [...] mouth daily at bedtime. blood sugar diagnostic (TUTORizeTOUCH ULTRA TEST) test strip Check blood sugars once a day. Levothyroxine 50 mcg cap Take 1 capsule by mouth once daily. lisinopril (ZESTRIL, PRINIVIL) 40 mg tablet Take 1 tablet by mouth once daily. lancets (SOLUS V2 LANCETS) 28 gauge [facility] Check blood sugar once daily. Dx: E11.40. [...] (HCC) 03/11/[address] Krause at the [facility] center Type 2 diabetes, uncontrolled, with neuropathy [...] Jr, MD 06/02/2022 documented in this encounter [facility] Progress note 04-10-2022 Note Date & Type Note Facility 04-10-2022 Note HNO ID: [id number] Author: Ousmane Durand MD Service: ? Author Type: Physician Type: Progress Notes Filed: 04/10/2022 10:03 AM Note Text: [facility] [...] last 2 years. Patient lives in a shelter facility and has his catheter changed every [...] mouth daily at bedtime. blood sugar diagnostic (TaecanetUCH ULTRA TEST) test strip Check blood sugars once a day. Levothyroxine 50 mcg cap Take 1 capsule by mouth once daily. lisinopril (ZESTRIL, PRINIVIL) 40 mg tablet Take 1 tablet by mouth once daily. amLODIPine (NORVASC) 10 mg tablet Take 1 tablet by mouth once daily. lancets (SOLUS V2 LANCETS) 28 gauge [facility] Check blood sugar once daily. Dx: E11.40. [...] mail. Ousmane Durand M.D, MS Associate Staff Person [facility] (more content not included)... [facility] History of Present illness Narrative 04-10-2022 Ousmane Durand MD - 04/10/2022 8:58 AM EDT Note Date & Type Note Facility 04-10-2022 History of Presen t illness Narrative Images from the original note were not included. [facility] [...] last 2 years. Patient lives in a shelter facility and has his catheter changed every [...] daily. lancets (SOLUS V2 LANCETS) 28 gauge [facility] Check blood sugar once daily. Dx: E11.40. [...] mail. Ousmane Durand M.D, MS Associate Staff Person [facility] [place] [facility] Cc: Dr. Aura Jordan documented in this encounter [facility] Evaluation note Note Date & Type Note Facility Evaluation note No assessment information availa ble [facility] Work Phone: Evaluation note Note Date & Type Note Facility Evaluation note Diagnosis Urine retention- Primary Retention of urine, unspecified Benign prostatic hyperplasia with urinary retention documented in this encounter [facility] Evaluation note Note Date & Type Note Facility Evaluation note Diagnosis Urinary retention- Primary Retention of urine, unspecified documented in this encounter [facility] Reason for referral (narrative) Note Date & Type Note Facility Reason for referral (narrative) No reason for referral information available [facility] Work Phone: Chief Complaint and Reason for Visit Chief Complaint JAIL LABWORK JAIL LAB WORK JAIL LAB WORK JAIL LABWORK JAIL LABWORK Chief Complaint JAIL LAB WOR K JAIL LABWORK JAIL LABWORK JAIL LABWORK Chief Complaint JAIL LAB WOR K JAIL LABWORK J[facility] LABWORK JAIL LABWORK JAIL LABWORK Chief Complaint JAIL LABWORK JAIL LABWORK JAIL LABWORK JAIL LABWORK JAIL LABWORK Chief Complaint JAIL LABWORK JAIL LABWORK JAIL LABWORK JAIL LABWORK LABWORK Chief Complaint JAIL LABWORK LABWORK JAIL LABWORK LABOWORK general illness Chief Complaint LABWORK JAIL LABWORK LAB[place] general illness JAIL LAB WORK Chief Complaint JAIL LABWORK LAB[place] general illness JAIL LAB WORK JAIL LABWORK Chief Complaint JAIL LAB WOR K JAIL LABWORK JAIL LABWORK LABWORK Chief Complaint JAIL LABWORK JAIL LABWORK LABWORK JAIL LAB WORK Chief Complaint LABWORK JAIL LAB WORK JAIL LBWORK JAIL LAB WORK Chief Complaint LABWORK JAIL LAB WORK JAIL LBWORK JAIL LAB WORK LABWORK Chief Complaint JAIL LAB WOR K JAIL LBWORK JAIL LAB WORK LABWORK JAIL LAB WORK Chief Complaint JAIL LAB WOR K JAIL LABWORK JAIL LAB WORK Chief Complaint JAIL LAB WOR K JAIL LAB WORK Chief Complaint JAIL LAB WOR K JAIL LABWORK Chief Complaint JAIL LABWORK JAIL LAB WORK JAIL LAB WORK Chief Complaint JAIL LABWORK JAIL LAB WORK JAIL LAB WORK JAIL LAB WORK Chief Complaint Admit Date JAIL LAB WORK August 03 5:00am JAIL LAB WORK October 03 4:00am LABWORK November 01, 2024 5:0 0am Chief Complaint Admit Date JAIL LAB WORK October 03 4:00am LABWORK November 01, 2024 5:0 0am LABWORK December 08, 2024 3:41pm Chief Complaint Admit Date LABWORK November 01, 2024 5:0 0am JAIL LAB WORK November 30, 2024 5 :00am LABWORK December 08, 2024 3:41pm JAIL LAB WORK January 02, 2025 5:0 0am [...] Will No August 03 10:55pm Power of Top And Seat Cover Fitter No August 03, 2020 10:55pm Advance Directive Response Recorded Date/ Time Name of Medical Power of Top And Seat Cover Fitter Dillon WALTERS, brother in law. April 10, 2022 4:36pm Advance Directives No November 27, 016 6:00am Living Will Yes April 10, 4:36pm Power of Top And Seat Cover Fitter Yes April 10, 2022 4:36pm Advance Directive Response Recorded Date/ Time Advance Directives No November 27, 016 5:00am Living Will Yes April 10, 3:36pm Power of Top And Seat Cover Fitter Yes April 10, 2022 3:36pm Advance Directive Response Recorded Date/ Time Advance Directives No November 27, 016 6:00am Living Will Yes April 10, 4:36pm Power of Top And Seat Cover Fitter Yes April 10, 2022 4:36pm Advance Directive [...] or prosecute any alcohol or drug abuse patient.[facility] the event this information is protected by the Federal Confidentiality of Alcohol and Drug Abuse Patient Records regulations: The Federal rules restrict any use of the information to criminally investigate or prosecute any alcohol or drug abuse patient.[facility] Reason for Visit (unrecogniz ed section and content) Reason Comments Established Patient Cath patient/interes ed in supra pubic cath Reason Comments Established Patient Discussion/SPT tube placement Care Teams (unrecognized sec tion and content) Single Pointed Operator Relationship Specialty Start Date End Date Aura Sky MD [address] [place] [address] PCP - General Family Practice 04/03/22 Single Pointed Operator Relationship Specialty Start Date End Date Aura Sky MD [address] [facility] [place] [address] PCP - General Family Medicine 04/03/22 Team [...] Status: Inactive Member Role/Relationship Status Dates Dr. Auar Sky MD Primary Care Provider Active Start: [...] section and content) DATE CREATED AUTHOR 06/03/2022 [facility] DATE CREATED AUTHOR AUTHOR'S LANE PUENTE 05/26/2025 [facility] FOR RECORDS PERTAINING TO PATIENTS [...] BE BASED ON THE PRIMARY CLINICAL RECORDS. [employer] provides no warranty or guarantee of the accuracy or completeness of information in this document.
[2025-06-04 09:05] LABS: Hematocrit 27.9 % (40-54); Hemoglobin 9.1 g/dL (13.0-16.5); Mean Corp Hgb Conc 32.6 g/dL (32-36); Mean Corpuscular Volume 88.6 fL (80-94); Mean Platelet Vol. 10.3 fl (6.2-12.0); Platelet Count 353 K/mm3 (150-450); RBC Distribution Width CV 14.6 % (11.6-14.6); RBC Distribution Width SD 47.6 fl (35.1-43.9); Red Blood Count 3.15 M/mm3 (4.6-6.2); White Blood Count 5.3 K/mm3 (4.4-11.0)
[2025-06-04 09:29] LABS: Anion Gap 9 (5-15); BUN 20 mg/dL (4-19); BUN/Creat Ratio 11.0 RATIO (10-20); Calcium,Total 8.0 mg/dL (7.6-11.0); Carbon Dioxide 26.2 mmol/L (21.0-32.0); Chloride 103 mmol/L (98-108); Cholesterol 111 mg/dL (<=200); Glucose 93 mg/dL (70-99); Low Density Lipoprotein Calc. 62 mg/dL; Potassium 4.0 mmol/L (3.3-5.1); Triglycerides 70 mg/dL; Very Low Density Lipoprotein 14 mg/dL (5-40); Vitamin B12 511 pg/mL (180-914); cholesterol:hdl ratio screen 3.26
== END ==
LOC: OLS.WCC 04:00
PROVIDERS: PCP Family Medicine; Referring Provider Family Medicine; Visit Provider Family Medicine
DX: I48.91 Unspecified atrial fibrillation (principal); I11.0 Hypertensive heart disease with heart failure; I50.9 Heart failure, unspecified; E11.9 Type 2 diabetes mellitus without complications; E78.5 Hyperlipidemia, unspecified; E03.9 Hypothyroidism, unspecified; F20.1 Disorganized schizophrenia; E55.9 Vitamin D deficiency, unspecified; M62.561 Muscle wasting and atrophy, not elsewhere classified, right lower leg
CPT/HCPCS: 36415; 80048; 80061; 82607; 83036; 84443; 85027

== ENCOUNTER → 2025-07-04 | Outpatient (REF) | payer MEDICARE, MEDICAID, SELFPAY ==
--- OUTSIDE RECORDS SUMMARY | 2025-07-04 04:55 | XMS RPT_ITS | CCD ---
Author Organization [facility] Informat ion Partnership [facility] Care Team Providers Care [employer] Advisor Name Role Phone Aura Sky MD Primary Care Provider [phone] JORDAN JORDAN JR Attending Unavaila ble AURA [...] Provider Aura Sky MD Attending Provider Unavailable Sky, Aura Noé Primary Care Unavailable Sky OLS, Aura K [...] Unavailable Sky OLS, Aura K Attending Unavailable Allergies Allergy Classification Reported Allergen(s) Allergy Type Date of Onset Reaction(s) Facility (20 sources) hydroCHLOROthiazide Drug Allergy 08-03-20 20 Unknown [facility] (20 sources) Triamterene Drug Allergy 08-03-20 20 Unknown [facility] (3 sources) hydroCHLOROthiazide / Triamterene; Translations: [TRIAMTERENE-HYDROCHLO ROTHIAZID] Drug Allergy 04-17-20 16 Other: See Comments [facility] Work Phone: (1 source) hydroCHLOROthiazide Drug Allergy 04-10-20 [facility] Repository (1 source) Triamterene Drug Allergy 04-10-20 [facility] Repository Medications Current Medications Medication Drug [...] 04, 2020 12:13am take 1 capsule by [facility] every eight hours as needed hydrOXYzine pamoate [...] by mouth twice daily. polyethylene glycol 3350 [id number] mg powder for oral solution (20 sources) [...] 12:00am Start: 11-08-2018 [facility] Quetiapine (Seroquel) 300 MG tablet Active 300 MG PO AT BEDTIME November 08, 2018 8:03pm Start: 11-08-2018 take 100 mg by mouth once marlena y Quetiapine Active 100 MG PO DAILY November 08, 2018 8:03pm Start: 07-31-2016 take 2 tablets [facility] SEROQUEL XR 50 mg Tb24 [...] tablet by marii th once daily. sennosides, chcf 8.6 mg oral tablet (20 sources) Start: 0 Sennosides 1 TABLET tablet Active 2 {tbl} PO AT BEDTIME July 08, 2020 1:00am stool softener Start: 07-08-2020 take 2 tablets by [facility] at bedtime Sennosides Active 2 TABLET PO AT BEDTIME July 08, 2020 1:00am Start: 07-08-2020 take 2 tablets by mo [facility] once daily Sennosides Active 2 TABLET PO [...] tablet Discontinued 20 mg PO DAILY 0 0 August 10, 2020 11:20am August 10, [...] [Anxiety disorder, unspecified] 03-15-2016 Chronic Cardiac dysrhythmias (1 source) Unspecified atrial fibrillation; Translations: [Unspecified atrial fibrillation] Onset: 06-07-2025 Chronic Congestive heart failure; nonhypertensive (2 sources) Heart failure, unspecified; Translations: [Heart failure, unspecified] Onset: 10-03-2024 Chronic Diabetes mellitus with complications (1 source) Type 2 diabetes mellitus with unspecified complications; Translations: [Type 2 diabetes mellitus with unspecified complications] Onset: 06-08-2025 Chronic Diabetes mellitus without complication (20 sources) Type 2 diabetes mellitus; Translations: [Type 2 diabetes mellitus without complications] Onset: 05-22-2015 06-12-2015 Chronic Disorders of lipid metabolism (20 sources) Hyperlipidemia; Translations: [Hyperlipidemia, unspecified] Onset: 06-07-2025 08-03-2020 Chronic Esophageal disorders (20 sources) Gastroesophageal [...] unspecified; Translations: [Vitamin D deficiency, unspecified] Onset: 06-08-2025 Chronic Open wounds of head; neck; and trunk (20 sources) Scalp laceration; Translations: [Laceration without foreign body of scalp, initial encounter] 07-10-2020 Episodic Other aftercare (1 source) Other custodial (current) drug therapy; Translations: [Other intermission coordinator (current) drug therapy] Onset: 06-08-2025 Episodic Other connective tissue disease (1 source) Muscle wasting and atrophy, not elsewhere classified, right lower leg; Translations: [Muscle wasting and atrophy, not elsewhere classified, right lower leg] Onset: 06-07-2025 Episodic Other diseases of bladder and urethra (1 source) Neuromuscular dysfunction of bladder, unspecified; Translations: [Neuromuscular dysfunction of bladder, unspecified] Onset: 06-06-2025 Chronic Residual codes; unclassified (18 sources) Urinary catheter in situ; Translations: [Presence of other specified devices] 04-19-2022 Episodic Schizophrenia and other psychotic disorders (3 sources) Catatonic schizophrenia; 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] Onset: [...] Test Name Value Interpretation Reference Range Facility Basic Metabolic Profile (BMP )on 06-04-2025 BUN/CRE 11.0 RATIO Normal 10-20 [facility] Comment on above: Order Comment: 126.1 Performed By: #### L 100.0500 #### [facility] [address] [place], [address] Calcium [Mass/Vol] 8.0 mg/dL Normal 7.6-11.0 [facility] Comment on above: Order Comment: 126.1 Performed By: #### L 100.0500 #### [facility] [address] [place], [address] Chloride [Moles/Vol] 103 mmol/L Normal 98-108 [facility] Comment on above: Order Comment: 126.1 Performed By: #### L 100.0500 #### [facility] [address] [place], [address] CO2 [Moles/Vol] 26.2 mmol/L Normal 21.0-32.0 [facility] Comment on above: Order Comment: 126.1 Performed By: #### L 100.0500 #### [facility] [address] [place], [address] Creatinine [Mass/Vol] 1.84 mg/dL High 0.70-1.20 [facility] Comment on above: Order Comment: 126.1 Performed By: #### L 100.0500 #### [facility] [address] [place], [address] GAP 9 Normal 5-15 [facility] Comment on above: Order Comment: 126.1 Performed By: #### L 100.0500 #### [facility] [address] [place], [address] GFR/1.73 sq M.predicted among non-blacks MDRD (S/P/Bld) [Vol rate/Area] 37 mL/min/{1.73_m2} Low >60 [facility] Comment on above: Order Comment: 126.1 Result Comment: mL/m in/1.73m2 CKD-EPI Creatinine Equation (2020) Performed By: #### L 100.0500 #### [facility] [address] [place], [address] Glucose [Mass/Vol] 93 mg/dL Normal 70-99 [facility] Comment on above: Order Comment: 126.1 Performed By: #### L 100.0500 #### [facility] [address] [place], [address] Potassium [Moles/Vol] 4.0 mmol/L Normal 3.3-5.1 [facility] Comment on above: Order Comment: 126.1 Performed By: #### L 100.0500 #### [facility] [address] [place], [address] Sodium [Moles/Vol] 138 mmol/L Normal 133-145 [facility] Comment on above: Order Comment: 126.1 Performed By: #### L 100.0500 #### [facility] [address] [place], [address] Urea nitrogen [Mass/Vol] 20 mg/dL High 4-19 [facility] Comment on above: Order Comment: 126.1 Performed By: #### L 100.0500 #### [facility] [address] [place], [address] CBC-Complete Blood Cnt No Di ffon 06-04-2025 Erythrocyte distribution width (RBC) [Ratio] 14.6 % Normal 11.6-14.6 [facility] Comment on above: Order Comment: 126.1 Performed By: #### L 100.0500 #### [facility] [address] [place], [address] Hematocrit (Bld) [Volume fraction] 27.9 % Low 40-54 [facility] Comment on above: Order Comment: 126.1 Performed By: #### L 100.0500 #### [facility] [address] [place], [address] Hemoglobin (Bld) [Mass/Vol] 9.1 g/dL Low 13.0-16.5 [facility] Comment on above: Order Comment: 126.1 Performed By: #### L 100.0500 #### [facility] [address] [place], [address] MCH (RBC) [Entitic mass] 28.9 pg Normal 27.0-32.0 [facility] Comment on above: Order Comment: 126.1 Performed By: #### L 100.0500 #### [facility] [address] [place], [address] MCHC (RBC) [Mass/Vol] 32.6 g/dL Normal 32-36 [facility] Comment on above: Order Comment: 126.1 Performed By: #### L 100.0500 #### [facility] [address] [place], [address] MCV (RBC) [Entitic vol] 88.6 fL Normal 80-94 [facility] Comment on above: Order Comment: 126.1 Performed By: #### L 100.0500 #### [facility] [address] [place], [address] Platelet mean volume (Bld) [Entitic vol] 10.3 fL Normal 6.2-12.0 [facility] Comment on above: Order Comment: 126.1 Performed By: #### L 100.0500 #### [facility] [address] [place], [address] Platelets (Bld) [#/Vol] 353 10*3/uL Normal 150-450 [facility] Comment on above: Order Comment: 126.1 Performed By: #### L 100.0500 #### [facility] [address] [place], [address] RBC (Bld) [#/Vol] 3.15 10*6/uL Low 4.6-6.2 [facility] Comment on above: Order Comment: 126.1 Performed By: #### L 100.0500 #### [facility] [address] [place], [address] RDW SD 47.6 fl High 35.1-43.9 [facility] Comment on above: Order Comment: 126.1 Performed By: #### L 100.0500 #### [facility] [address] [place], [address] WBC (Bld) [#/Vol] 5.3 10*3/uL Normal 4.4-11.0 [facility] Comment on above: Order Comment: 126.1 Performed By: #### L 100.0500 #### [facility] [address] [place], [address] Hemoglobin A1con 06-04-2025 HbA1c (Bld) [Mass fraction] 5.8 % High <=5.6 [facility] Comment on above: Order Comment: 126.1 Result Comment: Norm al < 5.7 % Prediabetic 5.7 - 6.4 % Diabetic >or= 6.5 % Please note range changes. Performed By: #### L 100.0500 #### [facility] [address] [place], [address] Lipid Profileon 06-04-2025 CHOL:HDL 3.26 Normal [facility] Comment on above: Order Comment: 126-1 Performed By: #### L 501.9985, L500.4100, L100.0500, L501.9520, L500.2500, L503.0105 #### [facility] [address] [place], [address] Cholesterol [Mass/Vol] 111 mg/dL Normal <=200 [facility] Comment on above: Order Comment: 126-1 Result Comment: Chol esterol level, Desirable <200 mg/dL Borderline high cholesterol 200-239 mg/dL High cholesterol >=240 mg/dL Recommendations of the NCEP Adult Treatment Panel for the following risk-cutoff thresholds for the [place] population. Performed By: #### L 501.9985, L500.4100, L100.0500, L501.9520, L500.2500, L503.0105 #### [facility] [address] [place], [address] Cholesterol in HDL [Mass/Vol] 34 mg/dL Low [facility] Comment on above: Order Comment: 126-1 Result Comment: Ana Paula onal Cholesterol Education Program (NCEP) guidelines: <40 mg/dL: Low HDL-cholesterol (major risk factor for CHD) >= 60 mg/dL: High HDL-cholesterol (negative risk factor for CHD) HDL-cholesterol is affected by a number of factors, e.g. smoking, exercise, hormones, sex and age. Performed By: #### L 501.9985, L500.4100, L100.0500, L501.9520, L500.2500, L503.0105 #### [facility] [address] [place], [address] Cholesterol in LDL [Mass/Vol] 62 mg/dL Normal [facility] Comment on above: Order Comment: 126-1 Result Comment: Bord bonpgi=505-291 mg/dL Higher Iejw=157 mg/dL or greater Armendariz Equation 2020 for LDL-C Performed By: #### L 501.9985, L500.4100, L100.0500, L501.9520, L500.2500, L503.0105 #### [facility] [address] [place], [address] Cholesterol in VLDL [Mass/Vol] 14 mg/dL Normal 5-40 [facility] Comment on above: Order Comment: 126-1 Performed By: #### L 501.9985, L500.4100, L100.0500, L501.9520, L500.2500, L503.0105 #### [facility] [address] [place], [address] Triglyceride [Mass/Vol] 70 mg/dL Normal [facility] Comment on above: Order Comment: 126-1 Result Comment: The drugs N-Acetylcysteine and Metamizole may falsely depress this assay. Normal range: <150 mg/dL Borderline High: 150-199 mg/dL High: 200-499 mg/dL Very High: >500 mg/dL Performed By: #### L 501.9985, L500.4100, L100.0500, L501.9520, L500.2500, L503.0105 #### [facility] [address] [place], [address] Thyroid Stim Hormone (TSH)on 06-04-2025 TSH 1.790 uIU/mL Normal 0.300-4.200 [facility] Comment on above: Order Comment: 126-1 Performed By: #### L 501.9985, L500.4100, L100.0500, L501.9520, L500.2500, L503.0105 #### [facility] [address] [place], [address] Vitamin B12on 06-04-2025 Cobalamin (Vitamin B12) [Mass/Vol] 511 pg/mL Normal 180-914 [facility] Comment on above: Order Comment: 126-1 Performed By: #### L 501.9985, L500.4100, L100.0500, L501.9520, L500.2500, L503.0105 #### [facility] [address] [place], [address] CBC-Complete Blood Cnt No Di ffon 05-04-2025 Erythrocyte distribution width (RBC) [Ratio] 16.5 % High 11.6-14.6 [facility] Comment on above: Order Comment: 126.1 Performed By: #### M 100.7900 #### [facility] [address] [place], [address] Hematocrit (Bld) [Volume fraction] 25.8 % Low 40-54 [facility] Comment on above: Order Comment: 126.1 Performed By: #### M 100.7900 #### [facility] [address] [place], [address] Hemoglobin (Bld) [Mass/Vol] 8.4 g/dL Low 13.0-16.5 [facility] Comment on above: Order Comment: 126.1 Performed By: #### M 100.7900 #### [facility] [address] [place], [address] MCH (RBC) [Entitic mass] 29.1 pg Normal 27.0-32.0 [facility] Comment on above: Order Comment: 126.1 Performed By: #### M 100.7900 #### [facility] [address] [place], [address] MCHC (RBC) [Mass/Vol] 32.6 g/dL Normal 32-36 [facility] Comment on above: Order Comment: 126.1 Performed By: #### M 100.7900 #### [facility] [address] [place], [address] MCV (RBC) [Entitic vol] 89.3 fL Normal 80-94 [facility] Comment on above: Order Comment: 126.1 Performed By: #### M 100.7900 #### [facility] [address] [place], [address] Platelet mean volume (Bld) [Entitic vol] 10.6 fL Normal 6.2-12.0 [facility] Comment on above: Order Comment: 126.1 Performed By: #### M 100.7900 #### [facility] [address] [place], [address] Platelets (Bld) [#/Vol] 277 10*3/uL Normal 150-450 [facility] Comment on above: Order Comment: 126.1 Performed By: #### M 100.7900 #### [facility] [address] [place], [address] RBC (Bld) [#/Vol] 2.89 10*6/uL Low 4.6-6.2 [facility] Comment on above: Order Comment: 126.1 Performed By: #### M 100.7900 #### [facility] [address] [place], [address] RDW SD 53.7 fl High 35.1-43.9 [facility] Comment on above: Order Comment: 126.1 Performed By: #### M 100.7900 #### [facility] [address] [place], [address] WBC (Bld) [#/Vol] 5.2 10*3/uL Normal 4.4-11.0 [facility] Comment on above: Order Comment: 126.1 Performed By: #### M 100.8800 #### [facility] [address] [place], [place], [address] Ferritinon 05-04-2025 Ferritin [Mass/Vol] 30 ng/mL Low 37-417 [facility] Comment on above: Order Comment: 126.1 Performed By: #### M 100.7900 #### [facility] [address] [place], [address] Iron+Iron Binding Capacityon 05-04-2025 TIBC 168 ug/dL Low 250-450 [facility] Comment on above: Order Comment: 126.1 Performed By: #### M 100.6164 #### [facility] [address] [place], [address] Urine Cultureon 04-09-2025 [facility] Pending Escherichia coli [place] Count >100,000 Enterococcus faecalis Enterococcus faecalis Escherichia [...] R Vancomycin Islt SHIRA 2 S Normal [facility] Comment on above: Performed By: #### M 100.0624 #### [facility] [address] [place], [address] CBC-Complete Blood Cnt No Di ffon 04-03-2025 Erythrocyte distribution width (RBC) [Ratio] 16.4 % High 11.6-14.6 [facility] Comment on above: Order Comment: 126.1 Performed By: #### M 100.7900 #### [facility] [address] [place], [address] Hematocrit (Bld) [Volume fraction] 25.7 % Low 40-54 [facility] Comment on above: Order Comment: 126.1 Performed By: #### M 100.7900 #### [facility] [address] [place], [address] Hemoglobin (Bld) [Mass/Vol] 8.2 g/dL Low 13.0-16.5 [facility] Comment on above: Order Comment: 126.1 Performed By: #### M 100.7900 #### [facility] [address] [place], [address] MCH (RBC) [Entitic mass] 27.9 pg Normal 27.0-32.0 [facility] Comment on above: Order Comment: 126.1 Performed By: #### M 100.7900 #### [facility] [address] [place], [address] MCHC (RBC) [Mass/Vol] 31.9 g/dL Low 32-36 [facility] Comment on above: Order Comment: 126.1 Performed By: #### M 100.7900 #### [facility] [address] [place], [address] MCV (RBC) [Entitic vol] 87.4 fL Normal 80-94 [facility] Comment on above: Order Comment: 126.1 Performed By: #### M 100.7900 #### [facility] [address] [place], [address] Platelet mean volume (Bld) [Entitic vol] 10.4 fL Normal 6.2-12.0 [facility] Comment on above: Order Comment: 126.1 Performed By: #### M 100.7900 #### [facility] [address] [place], [address] Platelets (Bld) [#/Vol] 276 10*3/uL Normal 150-450 [facility] Comment on above: Order Comment: 126.1 Performed By: #### M 100.7900 #### [facility] [address] [place], [address] RBC (Bld) [#/Vol] 2.94 10*6/uL Low 4.6-6.2 [facility] Comment on above: Order Comment: 126.1 Performed By: #### M 100.7900 #### [facility] [address] [place], [address] RDW SD 52.5 fl High 35.1-43.9 [facility] Comment on above: Order Comment: 126.1 Performed By: #### M 100.7900 #### [facility] [address] [place], [address] WBC (Bld) [#/Vol] 5.9 10*3/uL Normal 4.4-11.0 [facility] Comment on above: Order Comment: 126.1 Performed By: #### M 100.7900 #### [facility] [address] [place], [address] Basic Metabolic Profile (BMP )on 03-05-2025 BUN/CRE 9.9 RATIO Low 10-20 [facility] Comment on above: Order Comment: 126 Performed By: #### M 100.7900 #### [facility] [address] [place], [address] Calcium [Mass/Vol] 8.3 mg/dL Normal 7.6-11.0 [facility] Comment on above: Order Comment: 126 Performed By: #### M 100.7900 #### [facility] [address] [place], [address] Chloride [Moles/Vol] 102 mmol/L Normal 98-108 [facility] Comment on above: Order Comment: 126 Performed By: #### M 100.7900 #### [facility] [address] [place], [address] CO2 [Moles/Vol] 27.0 mmol/L Normal 21.0-32.0 [facility] Comment on above: Order Comment: 126 Performed By: #### M 100.7900 #### [facility] [address] [place], [address] Creatinine [Mass/Vol] 1.89 mg/dL High 0.70-1.20 [facility] Comment on above: Order Comment: 126 Performed By: #### M 100.7900 #### [facility] [address] [place], [address] GAP 9 Normal 5-15 [facility] Comment on above: Order Comment: 126 Performed By: #### M 100.7900 #### [facility] [address] [place], [address] GFR/1.73 sq M.predicted among non-blacks MDRD (S/P/Bld) [Vol rate/Area] 36 mL/min/{1.73_m2} Low >60 [facility] Comment on above: Order Comment: 126 Result Comment: mL/m in/1.73m2 CKD-EPI Creatinine Equation (2020) Performed By: #### M 100.7900 #### [facility] [address] [place], [address] Glucose [Mass/Vol] 100 mg/dL High 70-99 [facility] Comment on above: Order Comment: 126 Performed By: #### M 100.7900 #### [facility] [address] [place], [address] Potassium [Moles/Vol] 4.1 mmol/L Normal 3.3-5.1 [facility] Comment on above: Order Comment: 126 Performed By: #### M 100.7900 #### [facility] [address] [place], [address] Sodium [Moles/Vol] 137 mmol/L Normal 133-145 [facility] Comment on above: Order Comment: 126 Performed By: #### M 100.7900 #### [facility] [address] [place], [address] Urea nitrogen [Mass/Vol] 19 mg/dL Normal 4-19 [facility] Comment on above: Order Comment: 126 Performed By: #### M 100.7900 #### [facility] [address] [place], [address] CBC W/Diff, Automatedon 07-2 Absolute Lymph 2.04 X10 3/uL Normal 0.83-4.51 [facility] Comment on above: Order Comment: 126 Performed By: #### L 503.0106, L100.0100, L501.9520, L500.4100, L500.2500, L501.9985 #### [facility] [address] [place], [address] Absolute Neut 3.4 X10 3/uL Normal 2.0-7.7 [facility] Comment on above: Order Comment: 126 Performed By: #### L 503.0106, L100.0100, L501.9520, L500.4100, L500.2500, L501.9985 #### [facility] [address] [place], [address] Basophils/100 WBC (Bld) 0.2 % Normal 0-1 [facility] Comment on above: Order Comment: 126 Performed By: #### L 503.0106, L100.0100, L501.9520, L500.4100, L500.2500, L501.9985 #### [facility] [address] [place], [address] Eosinophils/100 WBC (Bld) 1.0 % Normal 0-5 [facility] Comment on above: Order Comment: 126 Performed By: #### L 503.0106, L100.0100, L501.9520, L500.4100, L500.2500, L501.9985 #### [facility] [address] [place], [address] Erythrocyte distribution width (RBC) [Ratio] 15.7 % High 11.6-14.6 [facility] Comment on above: Order Comment: 126 Performed By: #### L 503.0106, L100.0100, L501.9520, L500.4100, L500.2500, L501.9985 #### [facility] [address] [place], [address] Hematocrit (Bld) [Volume fraction] 29.1 % Low 40-54 [facility] Comment on above: Order Comment: 126 Performed By: #### L 503.0106, L100.0100, L501.9520, L500.4100, L500.2500, L501.9985 #### [facility] [address] [place], [address] Hemoglobin (Bld) [Mass/Vol] 9.4 g/dL Low 13.0-16.5 [facility] Comment on above: Order Comment: 126 Performed By: #### L 503.0106, L100.0100, L501.9520, L500.4100, L500.2500, L501.9985 #### [facility] [address] [place], [address] IG% 0.300 Normal 0.0-0.9 [facility] Comment on above: Order Comment: 126 Result Comment: IG% - Immature Granulocytes (promyelocytes, myelocytes and metamyelocytes) > 1% indicates that a LEFT SHIFT is Present. Performed By: #### L 503.0106, L100.0100, L501.9520, L500.4100, L500.2500, L501.9985 #### [facility] [address] [place], [address] Lymphocytes/100 WBC (Bld) 33.2 % Normal 19-41 [facility] Comment on above: Order Comment: 126 Performed By: #### L 503.0106, L100.0100, L501.9520, L500.4100, L500.2500, L501.9985 #### [facility] [address] [place], [address] MCH (RBC) [Entitic mass] 27.4 pg Normal 27.0-32.0 [facility] Comment on above: Order Comment: 126 Performed By: #### L 503.0106, L100.0100, L501.9520, L500.4100, L500.2500, L501.9985 #### [facility] [address] [place], [address] MCHC (RBC) [Mass/Vol] 32.3 g/dL Normal 32-36 [facility] Comment on above: Order Comment: 126 Performed By: #### L 503.0106, L100.0100, L501.9520, L500.4100, L500.2500, L501.9985 #### [facility] [address] [place], [address] MCV (RBC) [Entitic vol] 84.8 fL Normal 80-94 [facility] Comment on above: Order Comment: 126 Performed By: #### L 503.0106, L100.0100, L501.9520, L500.4100, L500.2500, L501.9985 #### [facility] [address] [place], [address] Monocytes/100 WBC (Bld) 10.4 % High 0-10 [facility] Comment on above: Order Comment: 126 Performed By: #### L 503.0106, L100.0100, L501.9520, L500.4100, L500.2500, L501.9985 #### [facility] [address] [place], [address] Neutrophils/100 WBC (Bld) 54.9 % Normal 47-70 [facility] Comment on above: Order Comment: 126 Performed By: #### L 503.0106, L100.0100, L501.9520, L500.4100, L500.2500, L501.9985 #### [facility] [address] [place], [address] Nucleated RBC (Bld) [#/Vol] 0 10*3/uL Normal 0-5 [facility] Comment on above: Order Comment: 126 Performed By: #### L 503.0106, L100.0100, L501.9520, L500.4100, L500.2500, L501.9985 #### [facility] [address] [place], [address] Platelet mean volume (Bld) [Entitic vol] 10.3 fL Normal 6.2-12.0 [facility] Comment on above: Order Comment: 126 Performed By: #### L 503.0106, L100.0100, L501.9520, L500.4100, L500.2500, L501.9985 #### [facility] [address] [place], [address] Platelets (Bld) [#/Vol] 255 10*3/uL Normal 150-450 [facility] Comment on above: Order Comment: 126 Performed By: #### L 503.0106, L100.0100, L501.9520, L500.4100, L500.2500, L501.9985 #### [facility] [address] [place], [address] RBC (Bld) [#/Vol] 3.43 10*6/uL Low 4.6-6.2 [facility] Comment on above: Order Comment: 126 Performed By: #### L 503.0106, L100.0100, L501.9520, L500.4100, L500.2500, L501.9985 #### [facility] [address] [place], [address] RDW SD 48.3 fl High 35.1-43.9 [facility] Comment on above: Order Comment: 126 Performed By: #### L 503.0106, L100.0100, L501.9520, L500.4100, L500.2500, L501.9985 #### [facility] [address] [place], [address] WBC (Bld) [#/Vol] 6.1 10*3/uL Normal 4.4-11.0 [facility] Comment on above: Order Comment: 126 Performed By: #### L 503.0106, L100.0100, L501.9520, L500.4100, L500.2500, L501.9985 #### [facility] [address] [place], [address] Hemoglobin A1con 03-05-2025 HbA1c (Bld) [Mass fraction] 6.6 % High <=5.6 [facility] Comment on above: Order Comment: 126 Result Comment: Norm al < 5.7 % Prediabetic 5.7 - 6.4 % Diabetic >or= 6.5 % Please note range changes. Performed By: #### M 100.7900 #### [facility] [address] [place], [address] Lipid Profileon 03-05-2025 CHOL:HDL 2.78 Normal [facility] Comment on above: Order Comment: 126 Performed By: #### M 100.7900 #### [facility] [address] [place], [address] Cholesterol [Mass/Vol] 113 mg/dL Normal <=200 [facility] Comment on above: Order Comment: 126 Result Comment: Chol esterol level, Desirable <200 mg/dL Borderline high cholesterol 200-239 mg/dL High cholesterol >=240 mg/dL Recommendations of the NCEP Adult Treatment Panel for the following risk-cutoff thresholds for the [place] population. Performed By: #### M 100.7900 #### [facility] [address] [place], [address] Cholesterol in HDL [Mass/Vol] 41 mg/dL Normal [facility] Comment on above: Order Comment: 126 Result Comment: Ana Paula onal Cholesterol Education Program (NCEP) guidelines: <40 mg/dL: Low HDL-cholesterol (major risk factor for CHD) >= 60 mg/dL: High HDL-cholesterol (negative risk factor for CHD) HDL-cholesterol is affected by a number of factors, e.g. smoking, exercise, hormones, sex and age. Performed By: #### M 100.7900 #### [facility] [address] [place], [address] Cholesterol in LDL [Mass/Vol] 59 mg/dL Normal [facility] Comment on above: Order Comment: 126 Result Comment: Bord ryckqj=293-733 mg/dL Higher Ktni=092 mg/dL or greater Friedwald Equation for LDL-C Performed By: #### M 100.7900 #### [facility] [address] [place], [address] Cholesterol in VLDL [Mass/Vol] 13 mg/dL Normal 5-40 [facility] Comment on above: Order Comment: 126 Performed By: #### M 100.7900 #### [facility] [address] [place], [address] Triglyceride [Mass/Vol] 67 mg/dL Normal [facility] Comment on above: Order Comment: 126 Result Comment: The drugs N-Acetylcysteine and Metamizole may falsely depress this assay. Normal range: <150 mg/dL Borderline High: 150-199 mg/dL High: 200-499 mg/dL Very High: >500 mg/dL Performed By: #### M 100.7900 #### [facility] [address] [place], [address] Thyroid Stim Hormone (TSH)on 03-05-2025 TSH 1.520 uIU/mL Normal 0.300-4.200 [facility] Comment on above: Order Comment: 126 Performed By: #### M 100.7900 #### [facility] [address] [place], [address] Vitamin B12on 03-05-2025 Cobalamin (Vitamin B12) [Mass/Vol] 474 pg/mL Normal 180-914 [facility] Comment on above: Order Comment: 126 Performed By: #### M 100.7900 #### [facility] [address] [place], [address] CBC-Complete Blood Cnt No Di ffon 02-01-2025 Erythrocyte distribution width (RBC) [Ratio] 15.5 % High 11.6-14.6 [facility] Comment on above: Performed By: #### L 100.0500 #### [facility] [address] [place], [address] Hematocrit (Bld) [Volume fraction] 30.1 % Low 40-54 [facility] Comment on above: Performed By: #### L 100.0500 #### [facility] [address] [place], [address] Hemoglobin (Bld) [Mass/Vol] 9.5 g/dL Low 13.0-16.5 [facility] Comment on above: Performed By: #### L 100.0500 #### [facility] [address] [place], [address] MCH (RBC) [Entitic mass] 27.4 pg Normal 27.0-32.0 [facility] Comment on above: Performed By: #### L 100.0500 #### [facility] [address] [place], [address] MCHC (RBC) [Mass/Vol] 31.6 g/dL Low 32-36 [facility] Comment on above: Performed By: #### L 100.0500 #### [facility] [address] [place], [address] MCV (RBC) [Entitic vol] 86.7 fL Normal 80-94 [facility] Comment on above: Performed By: #### L 100.0500 #### [facility] [address] [place], [address] Platelet mean volume (Bld) [Entitic vol] 10.1 fL Normal 6.2-12.0 [facility] Comment on above: Performed By: #### L 100.0500 #### [facility] [address] [place], [address] Platelets (Bld) [#/Vol] 308 10*3/uL Normal 150-450 [facility] Comment on above: Performed By: #### L 100.0500 #### [facility] [address] [place], [address] RBC (Bld) [#/Vol] 3.47 10*6/uL Low 4.6-6.2 [facility] Comment on above: Performed By: #### L 100.0500 #### [facility] [address] [place], [address] RDW SD 49.1 fl High 35.1-43.9 [facility] Comment on above: Performed By: #### L 100.0500 #### [facility] [address] [place], [address] WBC (Bld) [#/Vol] 6.3 10*3/uL Normal 4.4-11.0 [facility] Comment on above: Performed By: #### L 100.0925 #### [facility] [address] [place], [address] Erythrocyte distribution wid th ratioOrdered By: Aura Sky on 02-01-2025 Erythrocyte distribution width (RBC) [Ratio] 15.5 % High 11.6-14.6 [facility] Erythrocyte distribution wid th standard deviationOrdered By: Aura Sky on 02-01-2025 Erythrocyte distribution width (RBC) [Ratio] 49.1 fl High 35.1-43.9 [facility] Hematocrit Auto (Bld) [Volum e fraction]Ordered By: Aura Sky on 02-01-2025 Hematocrit (Bld) [Volume fraction] 30.1 % Low 40-54 [facility] Hemoglobin measurementOrdere d By: Aura Sky on 02-01-2025 Hemoglobin (Bld) [Mass/Vol] 9.5 g/dL Low 13.0-16.5 [facility] MCV (mean corpuscular volume ) determinationOrdered By: Aura Sky on 02-01-2025 MCV (RBC) [Entitic vol] 86.7 fL 80-94 [facility] Mean corpuscular hemoglobin (MCH) determinationOrdered By: Aura Sky on 02-01-2025 MCH (RBC) [Entitic mass] 27.4 pg 27.0-32.0 [facility] Mean corpuscular hemoglobin concentration (MCHC) determinationOrdered By: Aura Sky on 02-01-2025 MCHC (RBC) [Mass/Vol] 31.6 g/dL Low 32-36 [facility] Mean platelet volume determi nationOrdered By: Aura Sky on 02-01-2025 Platelet mean volume (Bld) [Entitic vol] 10.1 fL 6.2-12.0 [facility] Platelet countOrdered By: Juanita Sky on 02-01-2025 Platelets (Bld) [#/Vol] 308 10*3/uL 150-450 [facility] RBC Auto (Bld) [#/Vol]Ordere d By: Aura Sky on 02-01-2025 RBC (Bld) [#/Vol] 3.47 10*6/uL Low 4.6-6.2 [facility] White blood cell (WBC) count Ordered By: Aura Sky on 02-01-2025 WBC (Bld) [#/Vol] 6.3 10*3/uL 4.4-11.0 [facility] CBC-Complete Blood Cnt No Di ffon 01-02-2025 Erythrocyte distribution width (RBC) [Ratio] 15.9 % High 11.6-14.6 [facility] Comment on above: Order Comment: 126.1 Performed By: #### L 100.0500 #### [facility] [address] [place], [address] Hematocrit (Bld) [Volume fraction] 30.0 % Low 40-54 [facility] Comment on above: Order Comment: 126.1 Performed By: #### L 100.0500 #### [facility] [address] [place], [address] Hemoglobin (Bld) [Mass/Vol] 9.4 g/dL Low 13.0-16.5 [facility] Comment on above: Order Comment: 126.1 Performed By: #### L 100.0500 #### [facility] [address] [place], [address] MCH (RBC) [Entitic mass] 27.1 pg Normal 27.0-32.0 [facility] Comment on above: Order Comment: 126.1 Performed By: #### L 100.0500 #### [facility] [address] [place], [address] MCHC (RBC) [Mass/Vol] 31.3 g/dL Low 32-36 [facility] Comment on above: Order Comment: 126.1 Performed By: #### L 100.0500 #### [facility] [address] [place], [address] MCV (RBC) [Entitic vol] 86.5 fL Normal 80-94 [facility] Comment on above: Order Comment: 126.1 Performed By: #### L 100.0500 #### [facility] [address] [place], [address] Platelet mean volume (Bld) [Entitic vol] 10.5 fL Normal 6.2-12.0 [facility] Comment on above: Order Comment: 126.1 Performed By: #### L 100.0500 #### [facility] [address] [place], [address] Platelets (Bld) [#/Vol] 376 10*3/uL Normal 150-450 [facility] Comment on above: Order Comment: 126.1 Performed By: #### L 100.0500 #### [facility] [address] [place], [address] RBC (Bld) [#/Vol] 3.47 10*6/uL Low 4.6-6.2 [facility] Comment on above: Order Comment: 126.1 Performed By: #### L 100.0500 #### [facility] [address] [place], [address] RDW SD 50.4 fl High 35.1-43.9 [facility] Comment on above: Order Comment: 126.1 Performed By: #### L 100.0500 #### [facility] [address] [place], [address] WBC (Bld) [#/Vol] 7.2 10*3/uL Normal 4.4-11.0 [facility] Comment on above: Order Comment: 126.1 Performed By: #### L 100.0500 #### [facility] [address] [place], [address] Erythrocyte distribution wid th ratioOrdered By: Aura Sky on 01-02-2025 Erythrocyte distribution width (RBC) [Ratio] 15.9 % High 11.6-14.6 [facility] Erythrocyte distribution wid th standard deviationOrdered By: Aura Sky on 01-02-2025 Erythrocyte distribution width (RBC) [Ratio] 50.4 fl High 35.1-43.9 [facility] Hematocrit Auto (Bld) [Volum e fraction]Ordered By: Aura Sky on 01-02-2025 Hematocrit (Bld) [Volume fraction] 30.0 % Low 40-54 [facility] Hemoglobin measurementOrdere d By: Aura Sky on 01-02-2025 Hemoglobin (Bld) [Mass/Vol] 9.4 g/dL Low 13.0-16.5 [facility] MCV (mean corpuscular volume ) determinationOrdered By: Aura Sky on 01-02-2025 MCV (RBC) [Entitic vol] 86.5 fL 80-94 [facility] Mean corpuscular hemoglobin (MCH) determinationOrdered By: Aura Sky on 01-02-2025 MCH (RBC) [Entitic mass] 27.1 pg 27.0-32.0 [facility] Mean corpuscular hemoglobin concentration (MCHC) determinationOrdered By: Aura Sky on 01-02-2025 MCHC (RBC) [Mass/Vol] 31.3 g/dL Low 32-36 [facility] Mean platelet volume determi nationOrdered By: Aura Sky on 01-02-2025 Platelet mean volume (Bld) [Entitic vol] 10.5 fL 6.2-12.0 [facility] Platelet countOrdered By: Juanita Sky on 01-02-2025 Platelets (Bld) [#/Vol] 376 10*3/uL 150-450 [facility] RBC Auto (Bld) [#/Vol]Ordere d By: Aura Sky on 01-02-2025 RBC (Bld) [#/Vol] 3.47 10*6/uL Low 4.6-6.2 [facility] White blood cell (WBC) count Ordered By: Aura Sky on 01-02-2025 WBC (Bld) [#/Vol] 7.2 10*3/uL 4.4-11.0 [facility] Stool Occult Blood iFOBon STOB Negative Normal [facility] Comment on above: Performed By: #### M 100.7900 #### [facility] [address] [place], [address] Stool gastrointestinal hemog lobin detection by immunologic methodOrdered By: Aura Sky on 12-08-2024 Lower GI hemoglobin IA Ql (Stl) [facility] Anion gap in Serum or Plasma Ordered By: Aura Sky on 11-30-2024 Anion gap [Moles/Vol] 7 mmol/L 5-15 [facility] BUN/creatinine ratioOrdered By: Aura Sky on 11-30-2024 Urea nitrogen/Creatinine [Mass ratio] 9.2 mg/mg Low 10-20 [facility] Basic Metabolic Profile (BMP )on 11-30-2024 BUN/CRE 9.2 RATIO Low - [facility] Comment on above: Order Comment: 126.1 Performed By: #### L 100.0500 #### [facility] [address] [place], [address] Calcium [Mass/Vol] 7.7 mg/dL Normal 7.6-11.0 [facility] Comment on above: Order Comment: 126.1 Performed By: #### L 100.0500 #### [facility] [address] [place], [address] Chloride [Moles/Vol] 103 mmol/L Normal 98-108 [facility] Comment on above: Order Comment: 126.1 Performed By: #### L 100.0500 #### [facility] [address] [place], [address] CO2 [Moles/Vol] 27.2 mmol/L Normal 21.0-32.0 [facility] Comment on above: Order Comment: 126.1 Performed By: #### L 100.0500 #### [facility] [address] [place], [address] Creatinine [Mass/Vol] 1.55 mg/dL High 0.70-1.20 [facility] Comment on above: Order Comment: 126.1 Performed By: #### L 100.0500 #### [facility] [address] [place], [address] GAP 7 Normal 5-15 [facility] Comment on above: Order Comment: 126.1 Performed By: #### L 100.0500 #### [facility] [address] [place], [address] GFR/1.73 sq M.predicted among non-blacks MDRD (S/P/Bld) [Vol rate/Area] 45 mL/min/{1.73_m2} Low >60 [facility] Comment on above: Order Comment: 126.1 Result Comment: mL/m in/1.73m2 CKD-EPI Creatinine Equation (2020) Performed By: #### L 100.0500 #### [facility] [address] [place], [address] Glucose [Mass/Vol] 92 mg/dL Normal 70-99 [facility] Comment on above: Order Comment: 126.1 Performed By: #### L 100.0500 #### [facility] [address] [place], [address] Potassium [Moles/Vol] 4.3 mmol/L Normal 3.3-5.1 [facility] Comment on above: Order Comment: 126.1 Performed By: #### L 100.0500 #### [facility] [address] [place], [address] Sodium [Moles/Vol] 137 mmol/L Normal 133-145 [facility] Comment on above: Order Comment: 126.1 Performed By: #### L 100.0500 #### [facility] [address] [place], [address] Urea nitrogen [Mass/Vol] 14 mg/dL Normal 4-19 [facility] Comment on above: Order Comment: 126.1 Performed By: #### L 100.0500 #### [facility] [address] [place], [address] CBC-Complete Blood Cnt No Yelena guerrero 11-30-2024 Erythrocyte distribution width (RBC) [Ratio] 16.8 % High 11.6-14.6 [facility] Comment on above: Order Comment: 126.1 Performed By: #### L 100.0500 #### [facility] [address] [place], [address] Hematocrit (Bld) [Volume fraction] 28.4 % Low 40-54 [facility] Comment on above: Order Comment: 126.1 Performed By: #### L 100.0500 #### [facility] [address] [place], [address] Hemoglobin (Bld) [Mass/Vol] 8.8 g/dL Low 13.0-16.5 [facility] Comment on above: Order Comment: 126.1 Performed By: #### L 100.0500 #### [facility] [address] [place], [address] MCH (RBC) [Entitic mass] 27.2 pg Normal 27.0-32.0 [facility] Comment on above: Order Comment: 126.1 Performed By: #### L 100.0500 #### [facility] [address] [place], [address] MCHC (RBC) [Mass/Vol] 31.0 g/dL Low 32-36 [facility] Comment on above: Order Comment: 126.1 Performed By: #### L 100.0500 #### [facility] [address] [place], [address] MCV (RBC) [Entitic vol] 87.7 fL Normal 80-94 [facility] Comment on above: Order Comment: 126.1 Performed By: #### L 100.0500 #### [facility] [address] [place], [address] Platelet mean volume (Bld) [Entitic vol] 9.8 fL Normal 6.2-12.0 [facility] Comment on above: Order Comment: 126.1 Performed By: #### L 100.0500 #### [facility] [address] [place], [address] Platelets (Bld) [#/Vol] 382 10*3/uL Normal 150-450 [facility] Comment on above: Order Comment: 126.1 Performed By: #### L 100.0500 #### [facility] [address] [place], [address] RBC (Bld) [#/Vol] 3.24 10*6/uL Low 4.6-6.2 [facility] Comment on above: Order Comment: 126.1 Performed By: #### L 100.0500 #### [facility] [address] [place], [address] RDW SD 53.2 fl High 35.1-43.9 [facility] Comment on above: Order Comment: 126.1 Performed By: #### L 100.0500 #### [facility] [address] [place], [address] WBC (Bld) [#/Vol] 6.0 10*3/uL Normal 4.4-11.0 [facility] Comment on above: Order Comment: 126.1 Performed By: #### L 100.0500 #### [facility] [address] [place], [address] Carbon dioxide, total [Moles /volume] in Central venous bloodOrdered By: Aura Sky on 11-30-2024 CO2 [Moles/Vol] 27.2 mmol/L 21.0-32.0 [facility] Chloride assayOrdered By: Juanita Sky on 11-30-2024 Chloride [Moles/Vol] 103 mmol/L 98-108 [facility] Erythrocyte distribution wid th ratioOrdered By: Aura Sky on 11-30-2024 Erythrocyte distribution width (RBC) [Ratio] 16.8 % High 11.6-14.6 [facility] Erythrocyte distribution wid th standard deviationOrdered By: Aura Sky on 11-30-2024 Erythrocyte distribution width (RBC) [Ratio] 53.2 fl High 35.1-43.9 [facility] Ferritinon 11-30-2024 Ferritin [Mass/Vol] 26 ng/mL Low 37-417 [facility] Comment on above: Order Comment: 126.1 Performed By: #### L 100.0500 #### [facility] [address] [place], [address] Glomerular filtration rate ( GFR) estimation/1.73 sq m using serum, plasma, or whole bOrdered By: Aura Sky on 11-30-2024 GFR/1.73 sq M.predicted among non-blacks MDRD (S/P/Bld) [Vol rate/Area] 45 mL/min/{1.73_m2} Low >60 [facility] Comment on above: mL/min/1.73m2 CKD-EP I Creatinine Equation (2020) Hematocrit Auto (Bld) [Volum e fraction]Ordered By: Aura Sky on 11-30-2024 Hematocrit (Bld) [Volume fraction] 28.4 % Low 40-54 [facility] Hemoglobin measurementOrdere d By: Aura Sky on 11-30-2024 Hemoglobin (Bld) [Mass/Vol] 8.8 g/dL Low 13.0-16.5 [facility] MCV (mean corpuscular volume ) determinationOrdered By: Aura Sky on 11-30-2024 MCV (RBC) [Entitic vol] 87.7 fL 80-94 [facility] Mean corpuscular hemoglobin (MCH) determinationOrdered By: Aura Sky on 11-30-2024 MCH (RBC) [Entitic mass] 27.2 pg 27.0-32.0 [facility] Mean corpuscular hemoglobin concentration (MCHC) determinationOrdered By: Aura Sky on 11-30-2024 MCHC (RBC) [Mass/Vol] 31.0 g/dL Low 32-36 [facility] Mean platelet volume determi nationOrdered By: Aura Sky on 11-30-2024 Platelet mean volume (Bld) [Entitic vol] 9.8 fL 6.2-12.0 [facility] Platelet countOrdered By: Juanita Sky on 11-30-2024 Platelets (Bld) [#/Vol] 382 10*3/uL 150-450 [facility] Potassium measurement (mass/ volume)Ordered By: Aura Sky on 11-30-2024 Potassium (Unsp spec) [Mass/Vol] 4.3 mmol/L 3.3-5.1 [facility] RBC Auto (Bld) [#/Vol]Ordere d By: Arua Sky on 11-30-2024 RBC (Bld) [#/Vol] 3.24 10*6/uL Low 4.6-6.2 [facility] Serum creatinine measurement (mass/volume)Ordered By: Aura Sky on 11-30-2024 Creatinine [Mass/Vol] 1.55 mg/dL High 0.70-1.20 [facility] Serum glucose measurement (m ass/volume)Ordered By: Aura Sky on 11-30-2024 Glucose [Mass/Vol] 92 mg/dL 70-99 [facility] Serum or plasma calcium maria l urement (mass/volume)Ordered By: Aura Sky on 11-30-2024 Calcium [Mass/Vol] 7.7 mg/dL 7.6-11.0 [facility] Serum or plasma ferritin adryan surement (mass/volume)Ordered By: Aura Sky on 11-30-2024 Ferritin [Mass/Vol] 26 ng/mL Low 37-417 [facility] Serum or plasma urea nitroge n measurement (mass/volume)Ordered By: Aura Sky on 11-30-2024 Urea nitrogen [Mass/Vol] 14 mg/dL 4-19 [facility] Sodium levelOrdered By: Aura Sky on 11-30-2024 Sodium [Moles/Vol] 137 mmol/L 133-145 [facility] White blood cell (WBC) count Ordered By: Aura Sky on 11-30-2024 WBC (Bld) [#/Vol] 6.0 10*3/uL 4.4-11.0 [facility] CBC-Complete Blood Cnt No Di ffon 11-01-2024 Erythrocyte distribution width (RBC) [Ratio] 14.8 % High 11.6-14.6 [facility] Comment on above: Order Comment: 126.1 Performed By: #### L 100.0500 #### [facility] [address] [place], [address] Hematocrit (Bld) [Volume fraction] 27.8 % Low 40-54 [facility] Comment on above: Order Comment: 126.1 Performed By: #### L 100.0500 #### [facility] [address] [place], [address] Hemoglobin (Bld) [Mass/Vol] 8.7 g/dL Low 13.0-16.5 [facility] Comment on above: Order Comment: 126.1 Performed By: #### L 100.0500 #### [facility] [address] [place], [address] MCH (RBC) [Entitic mass] 26.6 pg Low 27.0-32.0 [facility] Comment on above: Order Comment: 126.1 Performed By: #### L 100.0500 #### [facility] [address] [place], [address] MCHC (RBC) [Mass/Vol] 31.3 g/dL Low 32-36 [facility] Comment on above: Order Comment: 126.1 Performed By: #### L 100.0500 #### [facility] [address] [place], [address] MCV (RBC) [Entitic vol] 85.0 fL Normal 80-94 [facility] Comment on above: Order Comment: 126.1 Performed By: #### L 100.0500 #### [facility] [address] [place], [address] Platelet mean volume (Bld) [Entitic vol] 10.3 fL Normal 6.2-12.0 [facility] Comment on above: Order Comment: 126.1 Performed By: #### L 100.0500 #### [facility] [address] [place], [address] Platelets (Bld) [#/Vol] 307 10*3/uL Normal 150-450 [facility] Comment on above: Order Comment: 126.1 Performed By: #### L 100.0500 #### [facility] [address] [place], [address] RBC (Bld) [#/Vol] 3.27 10*6/uL Low 4.6-6.2 [facility] Comment on above: Order Comment: 126.1 Performed By: #### L 100.0500 #### [facility] [address] [place], [address] RDW SD 45.7 fl High 35.1-43.9 [facility] Comment on above: Order Comment: 126.1 Performed By: #### L 100.0500 #### [facility] [address] [place], [address] WBC (Bld) [#/Vol] 5.8 10*3/uL Normal 4.4-11.0 [facility] Comment on above: Order Comment: 126.1 Performed By: #### L 100.0500 #### [facility] [address] [place], [address] Erythrocyte distribution wid th (RBC) [Ratio]Ordered By: Aura Sky on 11-01-2024 Erythrocyte distribution width (RBC) [Entitic vol] 45.7 fL High 35.1-43.9 [facility] Erythrocyte distribution wid th ratioOrdered By: Aura Sky on 11-01-2024 Erythrocyte distribution width (RBC) [Ratio] 14.8 % High 11.6-14.6 [facility] Erythrocyte distribution wid th standard deviationOrdered By: Aura Sky on 11-01-2024 Erythrocyte distribution width (RBC) [Ratio] 45.7 fl High 35.1-43.9 [facility] Hematocrit Auto (Bld) [Volum e fraction]Ordered By: Aura Sky on 11-01-2024 Hematocrit (Bld) [Volume fraction] 27.8 % Low 40-54 [facility] Hemoglobin measurementOrdere d By: Aura Sky on 11-01-2024 Hemoglobin (Bld) [Mass/Vol] 8.7 g/dL Low 13.0-16.5 [facility] MCV (mean corpuscular volume ) determinationOrdered By: Aura Sky on 11-01-2024 MCV (RBC) [Entitic vol] 85.0 fL 80-94 [facility] Mean corpuscular hemoglobin (MCH) determinationOrdered By: Aura Sky on 11-01-2024 MCH (RBC) [Entitic mass] 26.6 pg Low 27.0-32.0 [facility] Mean corpuscular hemoglobin concentration (MCHC) determinationOrdered By: Aura Sky on 11-01-2024 MCHC (RBC) [Mass/Vol] 31.3 g/dL Low 32-36 [facility] Mean platelet volume determi nationOrdered By: Aura Sky on 11-01-2024 Platelet mean volume (Bld) [Entitic vol] 10.3 fL 6.2-12.0 [facility] Platelet countOrdered By: Juanita Sky on 11-01-2024 Platelets (Bld) [#/Vol] 307 10*3/uL 150-450 [facility] RBC Auto (Bld) [#/Vol]Ordere d By: Aura Sky on 11-01-2024 RBC (Bld) [#/Vol] 3.27 10*6/uL Low 4.6-6.2 [facility] White blood cell (WBC) count Ordered By: Aura Sky on 11-01-2024 WBC (Bld) [#/Vol] 5.8 10*3/uL 4.4-11.0 [facility] CBC-Complete Blood Cnt No Di ffon 10-03-2024 Erythrocyte distribution width (RBC) [Ratio] 14.8 % High 11.6-14.6 [facility] Comment on above: Order Comment: 126.1 Performed By: #### L 100.7117 #### [facility] [address] [place], [place] [address], [address] Hematocrit (Bld) [Volume fraction] 29.3 % Low 40-54 [facility] Comment on above: Order Comment: 126.1 Performed By: #### L 100.0500 #### [facility] [address] [place], [address] Hemoglobin (Bld) [Mass/Vol] 9.0 g/dL Low 13.0-16.5 [facility] Comment on above: Order Comment: 126.1 Performed By: #### L 100.0500 #### [facility] [address] [place], [address] MCH (RBC) [Entitic mass] 27.1 pg Normal 27.0-32.0 [facility] Comment on above: Order Comment: 126.1 Performed By: #### L 100.0500 #### [facility] [address] [place], [address] MCHC (RBC) [Mass/Vol] 30.7 g/dL Low 32-36 [facility] Comment on above: Order Comment: 126.1 Performed By: #### L 100.0500 #### [facility] [address] [place], [address] MCV (RBC) [Entitic vol] 88.3 fL Normal 80-94 [facility] Comment on above: Order Comment: 126.1 Performed By: #### L 100.0500 #### [facility] [address] [place], [address] Platelet mean volume (Bld) [Entitic vol] 10.9 fL Normal 6.2-12.0 [facility] Comment on above: Order Comment: 126.1 Performed By: #### L 100.0500 #### [facility] [address] [place], [address] Platelets (Bld) [#/Vol] 234 10*3/uL Normal 150-450 [facility] Comment on above: Order Comment: 126.1 Performed By: #### L 100.0500 #### [facility] [address] [place], [address] RBC (Bld) [#/Vol] 3.32 10*6/uL Low 4.6-6.2 [facility] Comment on above: Order Comment: 126.1 Performed By: #### L 100.0500 #### [facility] [address] [place], [address] RDW SD 47.5 fl High 35.1-43.9 [facility] Comment on above: Order Comment: 126.1 Performed By: #### L 100.0500 #### [facility] [address] [place], [address] WBC (Bld) [#/Vol] 5.7 10*3/uL Normal 4.4-11.0 [facility] Comment on above: Order Comment: 126.1 Performed By: #### L 100.0500 #### [facility] [address] [place], [address] Erythrocyte distribution wid th (RBC) [Ratio]Ordered By: Aura Sky on 10-03-2024 Erythrocyte distribution width (RBC) [Entitic vol] 47.5 fL High 35.1-43.9 [facility] Erythrocyte distribution wid th ratioOrdered By: Aura Sky on 10-03-2024 Erythrocyte distribution width (RBC) [Ratio] 14.8 % High 11.6-14.6 [facility] Erythrocyte distribution wid th standard deviationOrdered By: Aura Sky on 10-03-2024 Erythrocyte distribution width (RBC) [Ratio] 47.5 fl High 35.1-43.9 [facility] Hematocrit Auto (Bld) [Volum e fraction]Ordered By: Aura Sky on 10-03-2024 Hematocrit (Bld) [Volume fraction] 29.3 % Low 40-54 [facility] Hemoglobin measurementOrdere d By: Aura Sky on 10-03-2024 Hemoglobin (Bld) [Mass/Vol] 9.0 g/dL Low 13.0-16.5 [facility] MCV (mean corpuscular volume ) determinationOrdered By: Aura Sky on 10-03-2024 MCV (RBC) [Entitic vol] 88.3 fL 80-94 [facility] Mean corpuscular hemoglobin (MCH) determinationOrdered By: Aura Sky on 10-03-2024 MCH (RBC) [Entitic mass] 27.1 pg 27.0-32.0 [facility] Mean corpuscular hemoglobin concentration (MCHC) determinationOrdered By: Aura Sky on 10-03-2024 MCHC (RBC) [Mass/Vol] 30.7 g/dL Low 32-36 [facility] Mean platelet volume determi nationOrdered By: Aura Sky on 10-03-2024 Platelet mean volume (Bld) [Entitic vol] 10.9 fL 6.2-12.0 [facility] Platelet countOrdered By: Juanita Sky on 10-03-2024 Platelets (Bld) [#/Vol] 234 10*3/uL 150-450 [facility] RBC Auto (Bld) [#/Vol]Ordere d By: Aura Sky on 10-03-2024 RBC (Bld) [#/Vol] 3.32 10*6/uL Low 4.6-6.2 [facility] White blood cell (WBC) count Ordered By: Aura Sky on 10-03-2024 WBC (Bld) [#/Vol] 5.7 10*3/uL 4.4-11.0 [facility] Basic Metabolic Profile (BMP )on 09-04-2024 BUN/CRE 9.0 RATIO Low 10-20 [facility] Comment on above: Order Comment: 126-1 Performed By: #### L 501.9985, L500.4100, L100.0500, L501.9520, L500.2500, L503.0105 #### [facility] [address] [place], [address] CA,Total 8.2 mg/dL Low 8.5-10.1 [facility] Comment on above: Order Comment: 126-1 Performed By: #### L 501.9985, L500.4100, L100.0500, L501.9520, L500.2500, L503.0105 #### [facility] [address] [place], [address] Chloride [Moles/Vol] 101 mmol/L Normal 98-107 [facility] Comment on above: Order Comment: 126-1 Performed By: #### L 501.9985, L500.4100, L100.0500, L501.9520, L500.2500, L503.0105 #### [facility] [address] [place], [address] CO2 [Moles/Vol] 29.0 mmol/L Normal 21.0-32.0 [facility] Comment on above: Order Comment: 126-1 Performed By: #### L 501.9985, L500.4100, L100.0500, L501.9520, L500.2500, L503.0105 #### [facility] [address] [place], [address] Creatinine [Mass/Vol] 1.66 mg/dL High 0.70-1.30 [facility] Comment on above: Order Comment: 126-1 Result Comment: The validity of the calculated GFR GFRAA in patients over 70 years has not been determined. Clinical correlation is essential. Performed By: #### L 501.9985, L500.4100, L100.0500, L501.9520, L500.2500, L503.0105 #### [facility] [address] [place], [address] EST GFR - AA 52 mL/min Low >60 [facility] Comment on above: Order Comment: 126-1 Result Comment: Afri can [place] GFR Calc Performed By: #### L 501.9985, L500.4100, L100.0500, L501.9520, L500.2500, L503.0105 #### [facility] [address] [place], [address] GAP 8 Normal 5-15 [facility] Comment on above: Order Comment: 126-1 Performed By: #### L 501.9985, L500.4100, L100.0500, L501.9520, L500.2500, L503.0105 #### [facility] [address] [place], [address] GFR/1.73 sq M.predicted among non-blacks MDRD (S/P/Bld) [Vol rate/Area] 43 mL/min/{1.73_m2} Low >60 [facility] Comment on above: Order Comment: 126-1 Result Comment: Non- GFR Calc Performed By: #### L 501.9985, L500.4100, L100.0500, L501.9520, L500.2500, L503.0105 #### [facility] [address] [place], [address] Glucose [Mass/Vol] 134 mg/dL High 74-106 [facility] Comment on above: Order Comment: 126-1 Result Comment: Fast ing Glucose result greater than or equal to 126 mg/dL suggests DIABETES MELLITUS per A.D.A. criteria. Performed By: #### L 501.9985, L500.4100, L100.0500, L501.9520, L500.2500, L503.0105 #### [facility] [address] [place], [address] Potassium [Moles/Vol] 3.9 mmol/L Normal 3.5-5.1 [facility] Comment on above: Order Comment: 126-1 Performed By: #### L 501.9985, L500.4100, L100.0500, L501.9520, L500.2500, L503.0105 #### [facility] [address] [place], [address] Sodium [Moles/Vol] 138 mmol/L Normal 136-145 [facility] Comment on above: Order Comment: 126-1 Performed By: #### L 501.9985, L500.4100, L100.0500, L501.9520, L500.2500, L503.0105 #### [facility] [address] [place], [address] Urea nitrogen [Mass/Vol] 15 mg/dL Normal 7-18 [facility] Comment on above: Order Comment: 126-1 Performed By: #### L 501.9985, L500.4100, L100.0500, L501.9520, L500.2500, L503.0105 #### [facility] [address] [place], [address] Blood urea nitrogen (BUN)/cr eatinine ratioOrdered By: Aura Sky on 09-04-2024 Urea nitrogen/Creatinine [Mass ratio] 9.0 mg/mg Low 10-20 [facility] CBC-Complete Blood Cnt No Di ffon 09-04-2024 Erythrocyte distribution width (RBC) [Ratio] 14.9 % High 11.6-14.6 [facility] Comment on above: Order Comment: 126-1 Performed By: #### L 501.9985, L500.4100, L100.0500, L501.9520, L500.2500, L503.0105 #### [facility] [address] [place], [address] Hematocrit (Bld) [Volume fraction] 29.4 % Low 40-54 [facility] Comment on above: Order Comment: 126-1 Performed By: #### L 501.9985, L500.4100, L100.0500, L501.9520, L500.2500, L503.0105 #### [facility] [address] [place], [address] Hemoglobin (Bld) [Mass/Vol] 9.1 g/dL Low 13.0-16.5 [facility] Comment on above: Order Comment: 126-1 Performed By: #### L 501.9985, L500.4100, L100.0500, L501.9520, L500.2500, L503.0105 #### [facility] [address] [place], [address] MCH (RBC) [Entitic mass] 27.1 pg Normal 27.0-32.0 [facility] Comment on above: Order Comment: 126-1 Performed By: #### L 501.9985, L500.4100, L100.0500, L501.9520, L500.2500, L503.0105 #### [facility] [address] [place], [address] MCHC (RBC) [Mass/Vol] 31.0 g/dL Low 32-36 [facility] Comment on above: Order Comment: 126-1 Performed By: #### L 501.9985, L500.4100, L100.0500, L501.9520, L500.2500, L503.0105 #### [facility] [address] [place], [address] MCV (RBC) [Entitic vol] 87.5 fL Normal 80-94 [facility] Comment on above: Order Comment: 126-1 Performed By: #### L 501.9985, L500.4100, L100.0500, L501.9520, L500.2500, L503.0105 #### [facility] [address] [place], [address] Platelet mean volume (Bld) [Entitic vol] 11.3 fL Normal 6.2-12.0 [facility] Comment on above: Order Comment: 126-1 Performed By: #### L 501.9985, L500.4100, L100.0500, L501.9520, L500.2500, L503.0105 #### [facility] [address] [place], [address] Platelets (Bld) [#/Vol] 228 10*3/uL Normal 150-450 [facility] Comment on above: Order Comment: 126-1 Performed By: #### L 501.9985, L500.4100, L100.0500, L501.9520, L500.2500, L503.0105 #### [facility] [address] [place], [address] RBC (Bld) [#/Vol] 3.36 10*6/uL Low 4.6-6.2 [facility] Comment on above: Order Comment: 126-1 Performed By: #### L 501.9985, L500.4100, L100.0500, L501.9520, L500.2500, L503.0105 #### [facility] [address] [place], [address] RDW SD 47.5 fl High 35.1-43.9 [facility] Comment on above: Order Comment: 126-1 Performed By: #### L 501.9985, L500.4100, L100.0500, L501.9520, L500.2500, L503.0105 #### [facility] [address] [place], [address] WBC (Bld) [#/Vol] 5.5 10*3/uL Normal 4.4-11.0 [facility] Comment on above: Order Comment: 126-1 Performed By: #### L 501.9985, L500.4100, L100.0500, L501.9520, L500.2500, L503.0105 #### [facility] [address] [place], [address] Carbon dioxide measurementOr dered By: Aura Sky on 09-04-2024 CO2 [Moles/Vol] 29.0 mmol/L 21.0-32.0 [facility] Chloride measurementOrdered By: Aura Sky on 09-04-2024 Chloride [Moles/Vol] 101 mmol/L 98-107 [facility] Erythrocyte distribution wid th (RBC) [Ratio]Ordered By: Aura Sky on 09-04-2024 Erythrocyte distribution width (RBC) [Entitic vol] 47.5 fL High 35.1-43.9 [facility] Erythrocyte distribution wid th ratioOrdered By: Aura Sky on 09-04-2024 Erythrocyte distribution width (RBC) [Ratio] 14.9 % High 11.6-14.6 [facility] Erythrocyte distribution wid th standard deviationOrdered By: Aura Sky on 09-04-2024 Erythrocyte distribution width (RBC) [Ratio] 47.5 fl High 35.1-43.9 [facility] Estimated glomerular filtrat ion rate (GFR) AmericanOrdered By: Aura Sky on 09-04-2024 Estimated GFR (MDRD) Amer 52 mL/min Low >60 [facility] Comment on above: GFR Calc Glomerular filtration rate ( GFR) estimationOrdered By: Aura Sky on 09-04-2024 Estimated GFR (MDRD) Non-Af Amer 43 mL/min Low >60 [facility] Comment on above: Non- GFR Calc GFR/1.73 sq M.predicted among non-blacks MDRD (S/P/Bld) [Vol rate/Area] 43 mL/min/{1.73_m2} Low >60 [facility] Comment on above: Non- GFR Calc Glucose measurementOrdered B y: Aura Sky on 09-04-2024 Glucose [Mass/Vol] 134 mg/dL High 74-106 [facility] Comment on above: Fasting Glucose resu lt greater than or equal to 126 mg/dL suggests DIABETES MELLITUS per A.D.A. criteria. Hematocrit Auto (Bld) [Volum e fraction]Ordered By: Aura Sky on 09-04-2024 Hematocrit (Bld) [Volume fraction] 29.4 % Low 40-54 [facility] Hemoglobin A1con 09-04-2024 HbA1c (Bld) [Mass fraction] 6.0 % High 3.8-5.6 [facility] Comment on above: Order Comment: 126-1 Result Comment: Norm al < 5.7 % Prediabetic 5.7 - 6.4 % Diabetic >or= 6.5 % Please note range changes. Performed By: #### L 501.9950, L500.4100, L100.0500, L501.9520, L500.2500, L503.0105 #### [facility] [address] [place], [address] Hemoglobin A1c percentageOrd ered By: Aura Sky on 09-04-2024 HbA1c (Bld) [Mass fraction] 6.0 % High 3.8-5.6 [facility] Comment on above: Normal < 5.7 % Predi abetic 5.7 - 6.4 % Diabetic >or= 6.5 % Please note range changes. Hemoglobin measurementOrdere d By: Aura Sky on 09-04-2024 Hemoglobin (Bld) [Mass/Vol] 9.1 g/dL Low 13.0-16.5 [facility] High density lipoprotein (HD L) measurementOrdered By: Aura Sky on 09-04-2024 Cholesterol in HDL [Mass/Vol] 38 mg/dL Low >40 [facility] Comment on above: The drugs N-Acetylcy steine and Metamizole may falsely depress this assay. Reference Range HDL <40 mg/dL Low HDL Cholesterol HDL >or= 60 mg/dL High HDL Cholesterol Lipid Profileon 09-04-2024 Cholesterol [Mass/Vol] 103 mg/dL Normal 200 [facility] Comment on above: Order Comment: 126-1 Result Comment: <200 mg/dL Desirable 200-240 mg/dL Borderline >240 mg/dL High Risk Performed By: #### L 501.9985, L500.4100, L100.0500, L501.9520, L500.2500, L503.0105 #### [facility] [address] [place], [address] Cholesterol in HDL [Mass/Vol] 38 mg/dL Low [facility] Comment on above: Order Comment: 126-1 Result Comment: The drugs N-Acetylcysteine and Metamizole may falsely depress this assay. Reference Range HDL <40 mg/dL Low HDL Cholesterol HDL >or= 60 mg/dL High HDL Cholesterol Performed By: #### L 501.9985, L500.4100, L100.0500, L501.9520, L500.2500, L503.0105 #### [facility] [address] [place], [address] Cholesterol in LDL [Mass/Vol] 47 mg/dL Normal 0-130 [facility] Comment on above: Order Comment: 126-1 Performed By: #### L 501.9985, L500.4100, L100.0500, L501.9520, L500.2500, L503.0105 #### [facility] [address] [place], [address] Cholesterol in VLDL [Mass/Vol] 18 mg/dL Normal 5-40 [facility] Comment on above: Order Comment: 126-1 Performed By: #### L 501.9985, L500.4100, L100.0500, L501.9520, L500.2500, L503.0105 #### [facility] [address] [place], [address] Triglyceride [Mass/Vol] 88 mg/dL Normal [facility] Comment on above: Order Comment: 126-1 Result Comment: The drugs N-Acetylcysteine and Metamizole may falsely depress this assay. Serum Triglycerides Reference Interval Normal <150 mg/dL Borderline high 150 - 199 mg/dL High 200 - 499 mg/dL Very High > or = 500 mg/dL Performed By: #### L 501.9985, L500.4100, L100.0500, L501.9520, L500.2500, L503.0105 #### [facility] [address] [facility] [place], [place], [address] Low density lipoprotein (LDL ) cholesterol measurementOrdered By: Aura Sky on 09-04-2024 Cholesterol in LDL [Mass/Vol] 47 mg/dL 0-130 [facility] MCV (mean corpuscular volume ) determinationOrdered By: Aura Sky on 09-04-2024 MCV (RBC) [Entitic vol] 87.5 fL 80-94 [facility] Mean corpuscular hemoglobin (MCH) determinationOrdered By: Aura Sky on 09-04-2024 MCH (RBC) [Entitic mass] 27.1 pg 27.0-32.0 [facility] Mean corpuscular hemoglobin concentration (MCHC) determinationOrdered By: Aura Sky on 09-04-2024 MCHC (RBC) [Mass/Vol] 31.0 g/dL Low 32-36 [facility] Mean platelet volume determi nationOrdered By: Aura Sky on 09-04-2024 Platelet mean volume (Bld) [Entitic vol] 11.3 fL 6.2-12.0 [facility] Platelet countOrdered By: Juanita Sky on 09-04-2024 Platelets (Bld) [#/Vol] 228 10*3/uL 150-450 [facility] Potassium measurementOrdered By: Aura Sky on 09-04-2024 Potassium [Moles/Vol] 3.9 mmol/L 3.5-5.1 [facility] RBC Auto (Bld) [#/Vol]Ordere d By: Aura Sky on 09-04-2024 RBC (Bld) [#/Vol] 3.36 10*6/uL Low 4.6-6.2 [facility] Serum anion gap measurementO rdered By: Aura Sky on 09-04-2024 Anion gap [Moles/Vol] 8 mmol/L 5-15 [facility] Serum or plasma calcium maria l urement (mass/volume)Ordered By: Aura Sky on 09-04-2024 Calcium [Mass/Vol] 8.2 mg/dL Low 8.5-10.1 [facility] Serum or plasma cholesterol measurement (mass/volume)Ordered By: Aura Sky on 09-04-2024 Cholesterol [Mass/Vol] 103 mg/dL <200 [facility] Comment on above: <200 mg/dL Desirable 200-240 mg/dL Borderline >240 mg/dL High Risk Serum or plasma creatinine m easurement (mass/volume)Ordered By: Aura Sky on 09-04-2024 Creatinine [Mass/Vol] 1.66 mg/dL High 0.70-1.30 [facility] Comment on above: The validity of the calculated GFR & GFRAA in patients over 70 years has not been determined. Clinical correlation is essential. Serum or plasma thyroid stim ulating hormone (TSH) measurement (units/volume)Ordered By: Aura Sky on 09-04-2024 TSH Qn 1.150 uIU/mL 0.358-3.740 [facility] Serum or plasma urea nitroge n measurement (mass/volume)Ordered By: Aura Sky on 09-04-2024 Urea nitrogen [Mass/Vol] 15 mg/dL 7-18 [facility] Sodium levelOrdered By: Aura Sky on 09-04-2024 Sodium [Moles/Vol] 138 mmol/L 136-145 [facility] TSH QnOrdered By: Aura lou on 09-04-2024 Thyroid Stimulating Hormone (TSH) 1.150 uIU/mL 0.358-3.740 [facility] Thyroid Stim Hormone (TSH)on 09-04-2024 TSH 1.150 uIU/mL Normal 0.358-3.740 [facility] Comment on above: Order Comment: 126-1 Performed By: #### L 501.9985, L500.4100, L100.0500, L501.9520, L500.2500, L503.0105 #### [facility] [address] [place], [place], [address] Triglycerides measurementOrd ered By: Aura Sky on 09-04-2024 Triglyceride [Mass/Vol] 88 mg/dL <199 [facility] Comment on above: The drugs N-Acetylcy steine and Metamizole may falsely depress this assay.Serum Triglycerides Reference Interval Normal <150 mg/dL Borderline high 150 - 199 mg/dL High 200 - 499 mg/dL Very High > or = 500 mg/dL Very low density lipoprotein (VLDL) cholesterol measurementOrdered By: Aura Sky on 09-04-2024 Very low density lipoprotein (VLDL) cholesterol measurement 18 mg/dL 5-40 [facility] VLDL Cholesterol 18 mg/dL 5-40 [facility] Vitamin B12on 09-04-2024 Cobalamin (Vitamin B12) [Mass/Vol] 408 pg/mL Normal 211-911 [facility] Comment on above: Order Comment: 126-1 Performed By: #### L 501.9985, L500.4100, L100.0500, L501.9520, L500.2500, L503.0105 #### [facility] [address] [place], [address] Vitamin B12 measurementOrder ed By: Aura Sky on 09-04-2024 Cobalamin (Vitamin B12) [Mass/Vol] 408 pg/mL 211-911 [facility] White blood cell (WBC) count Ordered By: Aura Sky on 09-04-2024 WBC (Bld) [#/Vol] 5.5 10*3/uL 4.4-11.0 [facility] CBC-Complete Blood Cnt No Di ffon 08-03-2024 Erythrocyte distribution width (RBC) [Ratio] 15.9 % High 11.6-14.6 [facility] Comment on above: Order Comment: 126.1 Performed By: #### L 100.0500 #### [facility] [address] [place], [address] Hematocrit (Bld) [Volume fraction] 29.8 % Low 40-54 [facility] Comment on above: Order Comment: 126.1 Performed By: #### L 100.0500 #### [facility] [address] [place], [address] Hemoglobin (Bld) [Mass/Vol] 9.2 g/dL Low 13.0-16.5 [facility] Comment on above: Order Comment: 126.1 Performed By: #### L 100.0500 #### [facility] [address] [place], [address] MCH (RBC) [Entitic mass] 27.8 pg Normal 27.0-32.0 [facility] Comment on above: Order Comment: 126.1 Performed By: #### L 100.0500 #### [facility] [address] [place], [address] MCHC (RBC) [Mass/Vol] 30.9 g/dL Low 32-36 [facility] Comment on above: Order Comment: 126.1 Performed By: #### L 100.0500 #### [facility] [address] [place], [address] MCV (RBC) [Entitic vol] 90.0 fL Normal 80-94 [facility] Comment on above: Order Comment: 126.1 Performed By: #### L 100.0500 #### [facility] [address] [place], [address] Platelet mean volume (Bld) [Entitic vol] 10.7 fL Normal 6.2-12.0 [facility] Comment on above: Order Comment: 126.1 Performed By: #### L 100.0500 #### [facility] [address] [place], [address] Platelets (Bld) [#/Vol] 238 10*3/uL Normal 150-450 [facility] Comment on above: Order Comment: 126.1 Performed By: #### L 100.0500 #### [facility] [address] [place], [address] RBC (Bld) [#/Vol] 3.31 10*6/uL Low 4.6-6.2 [facility] Comment on above: Order Comment: 126.1 Performed By: #### L 100.0500 #### [facility] [address] [place], [address] RDW SD 53.1 fl High 35.1-43.9 [facility] Comment on above: Order Comment: 126.1 Performed By: #### L 100.0500 #### [facility] [address] [place], [address] WBC (Bld) [#/Vol] 8.4 10*3/uL Normal 4.4-11.0 [facility] Comment on above: Order Comment: 126.1 Performed By: #### L 100.0500 #### [facility] [address] [place], [address] Erythrocyte distribution wid th (RBC) [Ratio]Ordered By: Aura Sky on 08-03-2024 Erythrocyte distribution width (RBC) [Entitic vol] 53.1 fL High 35.1-43.9 [facility] Erythrocyte distribution wid th ratioOrdered By: Aura Sky on 08-03-2024 Erythrocyte distribution width (RBC) [Ratio] 15.9 % High 11.6-14.6 [facility] Hematocrit Auto (Bld) [Volum e fraction]Ordered By: Aura Sky on 08-03-2024 Hematocrit (Bld) [Volume fraction] 29.8 % Low 40-54 [facility] Hemoglobin measurementOrdere d By: Aura Sky on 08-03-2024 Hemoglobin (Bld) [Mass/Vol] 9.2 g/dL Low 13.0-16.5 [facility] MCV (mean corpuscular volume ) determinationOrdered By: Aura Sky on 08-03-2024 MCV (RBC) [Entitic vol] 90.0 fL 80-94 [facility] Mean corpuscular hemoglobin (MCH) determinationOrdered By: Aura Sky on 08-03-2024 MCH (RBC) [Entitic mass] 27.8 pg 27.0-32.0 [facility] Mean corpuscular hemoglobin concentration (MCHC) determinationOrdered By: Aura Sky on 08-03-2024 MCHC (RBC) [Mass/Vol] 30.9 g/dL Low 32-36 [facility] Mean platelet volume determi nationOrdered By: Aura Sky on 08-03-2024 Platelet mean volume (Bld) [Entitic vol] 10.7 fL 6.2-12.0 [facility] Platelet countOrdered By: Juanita Sky on 08-03-2024 Platelets (Bld) [#/Vol] 238 10*3/uL 150-450 [facility] RBC Auto (Bld) [#/Vol]Ordere d By: Aura Sky on 08-03-2024 RBC (Bld) [#/Vol] 3.31 10*6/uL Low 4.6-6.2 [facility] White blood cell (WBC) count Ordered By: Aura Sky on 08-03-2024 WBC (Bld) [#/Vol] 8.4 10*3/uL 4.4-11.0 [facility] CBC-Complete Blood Cnt No Di ffon 11-25-2024 Erythrocyte distribution width (RBC) [Ratio] 15.8 % High 11.6-14.6 [facility] Comment on above: Performed By: #### M [id number] #### [facility] [address] [place], [address] Hematocrit (Bld) [Volume fraction] 27.4 % Low 40-54 [facility] Comment on above: Performed By: #### M [id number] #### [facility] [address] [place], [address] Hemoglobin (Bld) [Mass/Vol] 8.9 g/dL Low 13.0-16.5 [facility] Comment on above: Performed By: #### M [id number] #### [facility] [address] [place], [address] MCH (RBC) [Entitic mass] 28.9 pg Normal 27.0-32.0 [facility] Comment on above: Performed By: #### M [id number] #### [facility] [address] [place], [address] MCHC (RBC) [Mass/Vol] 32.5 g/dL Normal 32-36 [facility] Comment on above: Performed By: #### M [id number] #### [facility] [address] [place], [address] MCV (RBC) [Entitic vol] 89.0 fL Normal 80-94 [facility] Comment on above: Performed By: #### M [id number] #### [facility] [address] [place], [address] Platelet mean volume (Bld) [Entitic vol] 10.7 fL Normal 6.2-12.0 [facility] Comment on above: Performed By: #### M [id number] #### [facility] [address] [place], [address] Platelets (Bld) [#/Vol] 173 10*3/uL Normal 150-450 [facility] Comment on above: Performed By: #### M [id number] #### [facility] [address] [place], [address] RBC (Bld) [#/Vol] 3.08 10*6/uL Low 4.6-6.2 [facility] Comment on above: Performed By: #### M [id number] #### [facility] [address] [place], [address] RDW SD 51.2 fl High 35.1-43.9 [facility] Comment on above: Performed By: #### M [id number] #### [facility] [address] [place], [address] WBC (Bld) [#/Vol] 5.1 10*3/uL Normal 4.4-11.0 [facility] Comment on above: Performed By: #### M [id number] #### [facility] [address] [place], [address] Basophil percentageOrdered B y: Aura Sky on 11-02-2023 Chloride [Moles/Vol] 102 mmol/L 98-107 [facility] Glucose [Mass/Vol] 128 mg/dL 74-106 [facility] Comment on above: Fasting Glucose resu lt greater than or equal to 126 mg/dL suggests DIABETES MELLITUS per A.D.A. criteria. Hemoglobin (Bld) [Mass/Vol] 9.3 g/dL 13.0-16.5 [facility] Potassium [Moles/Vol] 3.8 mmol/L 3.5-5.1 [facility] Sodium [Moles/Vol] 137 mmol/L 136-145 [facility] WBC (Bld) [#/Vol] 6.9 10*3/uL 4.4-11.0 [facility] Determination of erythrocyte mean corpuscular volume (MCV)Ordered By: Aura Sky on 11-02-2023 MCV (RBC) [Entitic vol] 93.2 fL 80-94 [facility] Erythrocyte distribution wid th ratioOrdered By: Aura Sky on 11-02-2023 Erythrocyte distribution width (RBC) [Ratio] 14.2 % 11.6-14.6 [facility] Erythrocyte distribution wid th standard deviationOrdered By: Aura Sky on 11-02-2023 Erythrocyte distribution width (RBC) [Entitic vol] 48.0 fL 35.1-43.9 [facility] Hematocrit Auto (Bld) [Volum e fraction]Ordered By: Aura Sky on 11-02-2023 Hematocrit (Bld) [Volume fraction] 30.3 % 40-54 [facility] - Chemistry and C hemistry - challengeOrdered By: Aura Sky on 11-02-2023 CO2 [Moles/Vol] 29.0 mmol/L 21.0-32.0 [facility] Cobalamin (Vitamin B12) [Mass/Vol] 463 pg/mL 211-911 [facility] Urea nitrogen/Creatinine [Mass ratio] 13.0 mg/mg 10-20 [facility] - Hematology and Cell countsOrdered By: Aura Sky on 11-02-2023 MCH (RBC) [Entitic mass] 28.6 pg 27.0-32.0 [facility] MCHC (RBC) [Mass/Vol] 30.7 g/dL 32-36 [facility] Platelet mean volume (Bld) [Entitic vol] 11.0 fL 6.2-12.0 [facility] Platelets (Bld) [#/Vol] 236 10*3/uL 150-450 [facility] No Panel InformationOrdered By: Aura Sky on 11-02-2023 Estimated GFR (MDRD) Amer 46 mL/min >60 [facility] Comment on above: GFR Calc Estimated GFR (MDRD) Non-Af Amer 38 mL/min >60 [facility] Comment on above: Non- GFR Calc RBC Auto (Bld) [#/Vol]Ordere d By: Aura Sky on 11-02-2023 RBC (Bld) [#/Vol] 3.25 10*6/uL 4.6-6.2 [facility] Serum or plasma calcium maria l urement (mass/volume)Ordered By: Aura Sky on 11-02-2023 Calcium [Mass/Vol] 8.4 mg/dL 8.5-10.1 [facility] Serum or plasma creatinine m easurement (mass/volume)Ordered By: Aura Sky on 11-02-2023 Creatinine [Mass/Vol] 1.85 mg/dL 0.70-1.30 [facility] Comment on above: The validity of the calculated GFR & GFRAA in patients over 70 years has not been determined. Clinical correlation is essential. Serum or plasma thyroid stim ulating hormone (TSH) measurement (units/volume)Ordered By: Aura Sky on 11-02-2023 TSH Qn 1.19 uIU/mL 0.358-3.74 [facility] Serum or plasma urea nitroge n measurement (mass/volume)Ordered By: Aura Sky on 11-02-2023 Urea nitrogen [Mass/Vol] 24 mg/dL 7-18 [facility] Thin prep Papanicolaou smear with manual screeningOrdered By: Aura Sky on 11-02-2023 Thin prep Papanicolaou smear with manual screening 6 5-15 [facility] Whole blood hemoglobin A1c/t otal hemoglobin ratio (mass fraction)Ordered By: Aura Sky on 11-02-2023 HbA1c (Bld) [Mass fraction] 5.7 % 3.8-5.6 [facility] Comment on above: Normal < 5.7 % Predi abetic 5.7 - 6.4 % Diabetic >or= 6.5 % Please note range changes. Basophil percentageOrdered B y: Aura Sky on 10-27-2023 Hemoglobin (Bld) [Mass/Vol] 9.5 g/dL 13.0-16.5 [facility] WBC (Bld) [#/Vol] 6.3 10*3/uL 4.4-11.0 [facility] Determination of erythrocyte mean corpuscular volume (MCV)Ordered By: Aura Sky on 10-27-2023 MCV (RBC) [Entitic vol] 92.4 fL 80-94 [facility] Erythrocyte distribution wid th ratioOrdered By: Aura Sky on 10-27-2023 Erythrocyte distribution width (RBC) [Ratio] 14.0 % 11.6-14.6 [facility] Erythrocyte distribution wid th standard deviationOrdered By: Aura Sky on 10-27-2023 Erythrocyte distribution width (RBC) [Entitic vol] 47.2 fL 35.1-43.9 [facility] Hematocrit Auto (Bld) [Volum e fraction]Ordered By: Aura Sky on 10-27-2023 Hematocrit (Bld) [Volume fraction] 30.4 % 40- [facility] - Hematology and Cell countsOrdered By: Aura Sky on 10-27-2023 MCH (RBC) [Entitic mass] 28.9 pg 27.0-32.0 [facility] MCHC (RBC) [Mass/Vol] 31.3 g/dL 32-36 [facility] Platelet mean volume (Bld) [Entitic vol] 10.7 fL 6.2-12.0 [facility] Platelets (Bld) [#/Vol] 280 10*3/uL 150-450 [facility] RBC Auto (Bld) [#/Vol]Ordere d By: Aura Sky on 10-27-2023 RBC (Bld) [#/Vol] 3.29 10*6/uL 4.6-6.2 [facility] Basophil percentageOrdered B y: Aura Sky on 09-29-2023 Hemoglobin (Bld) [Mass/Vol] 8.9 g/dL 13.0-16.5 [facility] WBC (Bld) [#/Vol] 6.0 10*3/uL 4.4-11.0 [facility] Determination of erythrocyte mean corpuscular volume (MCV)Ordered By: Aura Sky on 09-29-2023 MCV (RBC) [Entitic vol] 92.1 fL 80-94 [facility] Erythrocyte distribution wid th ratioOrdered By: Aura Sky on 09-29-2023 Erythrocyte distribution width (RBC) [Ratio] 14.0 % 11.6-14.6 [facility] Erythrocyte distribution wid th standard deviationOrdered By: Aura Sky on 09-29-2023 Erythrocyte distribution width (RBC) [Entitic vol] 47.3 fL 35.1-43.9 [facility] Hematocrit Auto (Bld) [Volum e fraction]Ordered By: Aura Sky on 09-29-2023 Hematocrit (Bld) [Volume fraction] 27.8 % 40-54 [facility] - Hematology and Cell countsOrdered By: Aura Sky on 09-29-2023 MCH (RBC) [Entitic mass] 29.5 pg 27.0-32.0 [facility] MCHC (RBC) [Mass/Vol] 32.0 g/dL 32-36 [facility] Platelet mean volume (Bld) [Entitic vol] 10.6 fL 6.2-12.0 [facility] Platelets (Bld) [#/Vol] 251 10*3/uL 150-450 [facility] RBC Auto (Bld) [#/Vol]Ordere d By: Aura Sky on 09-29-2023 RBC (Bld) [#/Vol] 3.02 10*6/uL 4.6-6.2 [facility] Basophil percentageOrdered B y: Aura Sky on 09-03-2023 Chloride [Moles/Vol] 105 mmol/L 98-107 [facility] Glucose [Mass/Vol] 102 mg/dL 74-106 [facility] Comment on above: Fasting Glucose resu lt from 100 to 125 mg/dL suggests IMPAIRED HOMEOSTASIS per A.D.A. criteria. Hemoglobin (Bld) [Mass/Vol] 9.2 g/dL 13.0-16.5 [facility] Potassium [Moles/Vol] 4.4 mmol/L 3.5-5.1 [facility] Sodium [Moles/Vol] 136 mmol/L 136-145 [facility] WBC (Bld) [#/Vol] 6.3 10*3/uL 4.4-11.0 [facility] Determination of erythrocyte mean corpuscular volume (MCV)Ordered By: Aura Sky on 09-03-2023 MCV (RBC) [Entitic vol] 90.7 fL 80-94 [facility] Erythrocyte distribution wid th ratioOrdered By: Aura Sky on 09-03-2023 Erythrocyte distribution width (RBC) [Ratio] 13.3 % 11.6-14.6 [facility] Erythrocyte distribution wid th standard deviationOrdered By: Aura Sky on 09-03-2023 Erythrocyte distribution width (RBC) [Entitic vol] 44.0 fL 35.1-43.9 [facility] Hematocrit Auto (Bld) [Volum e fraction]Ordered By: Aura Sky on 09-03-2023 Hematocrit (Bld) [Volume fraction] 29.2 % 40-54 [facility] - Chemistry and C hemistry - challengeOrdered By: Aura Sky on 09-03-2023 CO2 [Moles/Vol] 29.0 mmol/L 21.0-32.0 [facility] Urea nitrogen/Creatinine [Mass ratio] 14.0 mg/mg 10-20 [facility] - Hematology and Cell countsOrdered By: Aura Sky on 09-03-2023 MCH (RBC) [Entitic mass] 28.6 pg 27.0-32.0 [facility] MCHC (RBC) [Mass/Vol] 31.5 g/dL 32-36 [facility] Platelets (Bld) [#/Vol] 244 10*3/uL 150-450 [facility] No Panel InformationOrdered By: Aura Sky on 09-03-2023 Estimated GFR (MDRD) Amer 50 mL/min >60 [facility] Comment on above: GFR Calc Estimated GFR (MDRD) Non-Af Amer 41 mL/min >60 [facility] Comment on above: Non- GFR Calc Platelet mean volume Joseph-Ec ker (Bld) [Entitic vol]Ordered By: Aura Sky on 09-03-2023 Platelet mean volume (Bld) [Entitic vol] 10.7 fL 6.2-12.0 [facility] RBC Auto (Bld) [#/Vol]Ordere d By: Aura Sky on 09-03-2023 RBC (Bld) [#/Vol] 3.22 10*6/uL 4.6-6.2 [facility] Serum or plasma calcium maria l urement (mass/volume)Ordered By: Aura Sky on 09-03-2023 Calcium [Mass/Vol] 8.4 mg/dL 8.5-10.1 [facility] Serum or plasma creatinine m easurement (mass/volume)Ordered By: Aura Sky on 09-03-2023 Creatinine [Mass/Vol] 1.72 mg/dL 0.70-1.30 [facility] Comment on above: The validity of the calculated GFR & GFRAA in patients over 70 years has not been determined. Clinical correlation is essential. Serum or plasma urea nitroge n measurement (mass/volume)Ordered By: Aura Sky on 09-03-2023 Urea nitrogen [Mass/Vol] 24 mg/dL 7-18 [facility] Thin prep Papanicolaou smear with manual screeningOrdered By: Aura Sky on 09-03-2023 Thin prep Papanicolaou smear with manual screening 2 5-15 [facility] Basophil percentageOrdered B y: Aura Sky on 06-03-2023 Chloride [Moles/Vol] 100 mmol/L 98-107 [facility] Cholesterol [Mass/Vol] 132 mg/dL <200 [facility] Comment on above: <200 mg/dL Desirable 200-240 mg/dL Borderline >240 mg/dL High Risk Glucose [Mass/Vol] 85 mg/dL 74-106 [facility] Potassium [Moles/Vol] 4.3 mmol/L 3.5-5.1 [facility] Sodium [Moles/Vol] 136 mmol/L 136-145 [facility] Triglyceride [Mass/Vol] 81 mg/dL <199 [facility] Comment on above: The drugs N-Acetylcy steine and Metamizole may falsely depress this assay.Serum Triglycerides Reference Interval Normal <150 mg/dL Borderline high 150 - 199 mg/dL High 200 - 499 mg/dL Very High > or = 500 mg/dL WBC (Bld) [#/Vol] 6.8 10*3/uL 4.4-11.0 [facility] Blood erythrocytes count (nu mber/volume)Ordered By: Aura Sky on 06-03-2023 RBC (Bld) [#/Vol] 4.00 10*6/uL 4.6-6.2 [facility] Blood hemoglobin measurement (mass/volume)Ordered By: Aura Sky on 06-03-2023 Hemoglobin (Bld) [Mass/Vol] 11.6 g/dL 13.0-16.5 [facility] Blood platelet mean volumeOr dered By: Aura Sky on 06-03-2023 Platelet mean volume (Bld) [Entitic vol] 10.9 fL 6.2-12.0 [facility] Determination of erythrocyte mean corpuscular volume (MCV)Ordered By: Aura Sky on 06-03-2023 MCV (RBC) [Entitic vol] 90.0 fL 80-94 [facility] Hematocrit Auto (Bld) [Volum e fraction]Ordered By: Aura Sky on 06-03-2023 Hematocrit (Bld) [Volume fraction] 36.0 % 40-54 [facility] - Chemistry and C hemistry - challengeOrdered By: Aura Sky on 06-03-2023 CO2 [Moles/Vol] 33.0 mmol/L 21.0-32.0 [facility] Cobalamin (Vitamin B12) [Mass/Vol] 1192 pg/mL 211-911 [facility] Urea nitrogen/Creatinine [Mass ratio] 11.8 mg/mg 10-20 [facility] - Hematology and Cell countsOrdered By: Aura Sky on 06-03-2023 Erythrocyte distribution width (RBC) [Entitic vol] 45.4 fL 35.1-43.9 [facility] Erythrocyte distribution width (RBC) [Ratio] 13.9 % 11.6-14.6 [facility] MCH (RBC) [Entitic mass] 29.0 pg 27.0-32.0 [facility] MCHC Auto (RBC) [Mass/Vol]Or dered By: Aura Sky on 06-03-2023 MCHC (RBC) [Mass/Vol] 32.2 g/dL 32-36 [facility] No Panel InformationOrdered By: Aura Sky on 06-03-2023 Estimated GFR (MDRD) Amer 57 mL/min >60 [facility] Comment on above: GFR Calc Estimated GFR (MDRD) Non-Af Amer 47 mL/min >60 [facility] Comment on above: Non- GFR Calc Thyroid Stimulating Hormone (TSH) 2.12 uIU/mL 0.358-3.74 [facility] Platelets bldOrdered By: Doe Sky on 06-03-2023 Platelets (Bld) [#/Vol] 239 10*3/uL 150-450 [facility] Serum or plasma calcium maria l urement (mass/volume)Ordered By: Aura Sky on 06-03-2023 Calcium [Mass/Vol] 8.1 mg/dL 8.5-10.1 [facility] Serum or plasma cholesterol in HDL measurement (mass/volume)Ordered By: Aura Sky on 06-03-2023 Cholesterol in HDL [Mass/Vol] 51 mg/dL >40 [facility] Comment on above: The drugs N-Acetylcy steine and Metamizole may falsely depress this assay. Reference Range HDL <40 mg/dL Low HDL Cholesterol HDL >or= 60 mg/dL High HDL Cholesterol Serum or plasma cholesterol in VLDL measurement (mass/volume)Ordered By: Aura Sky on 06-03-2023 Cholesterol in VLDL [Mass/Vol] 16 mg/dL 5-40 [facility] Serum or plasma creatinine m easurement (mass/volume)Ordered By: Aura Sky on 06-03-2023 Creatinine [Mass/Vol] 1.53 mg/dL 0.70-1.30 [facility] Comment on above: The validity of the calculated GFR & GFRAA in patients over 70 years has not been determined. Clinical correlation is essential. Serum or plasma low density lipoprotein (LDL) cholesterol measurement (mass/volume)Ordered By: Aura Sky on 06-03-2023 Cholesterol in LDL [Mass/Vol] 65 mg/dL 0-130 [facility] Serum or plasma urea nitroge n measurement (mass/volume)Ordered By: Aura Sky on 06-03-2023 Urea nitrogen [Mass/Vol] 18 mg/dL 7-18 [facility] Thin prep Papanicolaou smear with manual screeningOrdered By: Aura Sky on 06-03-2023 Thin prep Papanicolaou smear with manual screening 3 5-15 [facility] Whole blood hemoglobin A1c/t otal hemoglobin ratio (mass fraction)Ordered By: Aura Sky on 06-03-2023 HbA1c (Bld) [Mass fraction] 5.9 % 3.8-5.6 [facility] Comment on above: Normal < 5.7 % Predi abetic 5.7 - 6.4 % Diabetic >or= 6.5 % Please note range changes. Basophil percentageOrdered B y: Aura Sky on 03-03-2023 Chloride [Moles/Vol] 103 mmol/L 98-107 [facility] Glucose [Mass/Vol] 81 mg/dL 74-106 [facility] Potassium [Moles/Vol] 4.2 mmol/L 3.5-5.1 [facility] Sodium [Moles/Vol] 136 mmol/L 136-145 [facility] WBC (Bld) [#/Vol] 5.7 10*3/uL 4.4-11.0 [facility] Blood erythrocytes count (nu mber/volume)Ordered By: Aura Sky on 03-03-2023 RBC (Bld) [#/Vol] 3.63 10*6/uL 4.6-6.2 [facility] Blood hemoglobin measurement (mass/volume)Ordered By: Aura Sky on 03-03-2023 Hemoglobin (Bld) [Mass/Vol] 10.4 g/dL 13.0-16.5 [facility] Blood platelet mean volumeOr dered By: Aura Sky on 03-03-2023 Platelet mean volume (Bld) [Entitic vol] 10.7 fL 6.2-12.0 [facility] Determination of erythrocyte mean corpuscular volume (MCV)Ordered By: Aura Sky on 03-03-2023 MCV (RBC) [Entitic vol] 90.4 fL 80-94 [facility] Hematocrit Auto (Bld) [Volum e fraction]Ordered By: Aura Sky on 03-03-2023 Hematocrit (Bld) [Volume fraction] 32.8 % 40-54 [facility] - Chemistry and C hemistry - challengeOrdered By: Aura Sky on 03-03-2023 CO2 [Moles/Vol] 31.0 mmol/L 21.0-32.0 [facility] Urea nitrogen/Creatinine [Mass ratio] 9.4 mg/mg 10-20 [facility] - Hematology and Cell countsOrdered By: Aura Sky on 03-03-2023 Erythrocyte distribution width (RBC) [Entitic vol] 43.0 fL 35.1-43.9 [facility] Erythrocyte distribution width (RBC) [Ratio] 13.0 % 11.6-14.6 [facility] MCH (RBC) [Entitic mass] 28.7 pg 27.0-32.0 [facility] MCHC Auto (RBC) [Mass/Vol]Or dered By: Aura Sky on 03-03-2023 MCHC (RBC) [Mass/Vol] 31.7 g/dL 32-36 [facility] No Panel InformationOrdered By: Aura Sky on 03-03-2023 Estimated GFR (MDRD) Amer 54 mL/min >60 [facility] Comment on above: GFR Calc Estimated GFR (MDRD) Non-Af Amer 45 mL/min >60 [facility] Comment on above: Non- GFR Calc Platelets bldOrdered By: Doe Sky on 03-03-2023 Platelets (Bld) [#/Vol] 233 10*3/uL 150-450 [facility] Serum or plasma calcium maria l urement (mass/volume)Ordered By: Aura Sky on 03-03-2023 Calcium [Mass/Vol] 8.4 mg/dL 8.5-10.1 [facility] Serum or plasma creatinine m easurement (mass/volume)Ordered By: Aura Sky on 03-03-2023 Creatinine [Mass/Vol] 1.60 mg/dL 0.70-1.30 [facility] [facility] Comment on above: The validity of the calculated GFR & GFRAA in patients over 70 years has not been determined. Clinical correlation is essential. Serum or plasma urea nitroge n measurement (mass/volume)Ordered By: Aura Sky on 03-03-2023 Urea nitrogen [Mass/Vol] 15 mg/dL 7-18 [facility] Thin prep Papanicolaou smear with manual screeningOrdered By: Aura Sky on 03-03-2023 Thin prep Papanicolaou smear with manual screening 2 5-15 [facility] Basophil percentageOrdered B y: Aura Sky on 01-01-2023 Chloride [Moles/Vol] 101 mmol/L 98-107 [facility] Glucose [Mass/Vol] 95 mg/dL 74-106 [facility] Potassium [Moles/Vol] 4.4 mmol/L 3.5-5.1 [facility] Sodium [Moles/Vol] 134 mmol/L 136-145 [facility] WBC (Bld) [#/Vol] 6.2 10*3/uL 4.4-11.0 [facility] Blood erythrocytes count (nu mber/volume)Ordered By: Aura Sky on 01-01-2023 RBC (Bld) [#/Vol] 3.74 10*6/uL 4.6-6.2 [facility] Blood hemoglobin measurement (mass/volume)Ordered By: Aura Sky on 01-01-2023 Hemoglobin (Bld) [Mass/Vol] 11.0 g/dL 13.0-16.5 [facility] Blood platelet mean volumeOr dered By: Aura Sky on 01-01-2023 Platelet mean volume (Bld) [Entitic vol] 10.3 fL 6.2-12.0 [facility] Determination of erythrocyte mean corpuscular volume (MCV)Ordered By: Aura Sky on 01-01-2023 MCV (RBC) [Entitic vol] 90.4 fL 80-94 [facility] Hematocrit Auto (Bld) [Volum e fraction]Ordered By: Aura Sky on 01-01-2023 Hematocrit (Bld) [Volume fraction] 33.8 % 40-54 [facility] Laboratory - Chemistry and C hemistry - challengeOrdered By: Aura Sky on 01-01-2023 CO2 [Moles/Vol] 31.0 mmol/L 21.0-32.0 [facility] Urea nitrogen/Creatinine [Mass ratio] 11.7 mg/mg 10-20 [facility] Laboratory - Hematology and Cell countsOrdered By: Aura kSy on 01-01-2023 Erythrocyte distribution width (RBC) [Entitic vol] 44.6 fL 35.1-43.9 [facility] Erythrocyte distribution width (RBC) [Ratio] 13.6 % 11.6-14.6 [facility] MCH (RBC) [Entitic mass] 29.4 pg 27.0-32.0 [facility] MCHC Auto (RBC) [Mass/Vol]Or dered By: Aura Sky on 01-01-2023 MCHC (RBC) [Mass/Vol] 32.5 g/dL 32-36 [facility] No Panel InformationOrdered By: Aura Sky on 01-01-2023 Estimated GFR (MDRD) Amer 53 mL/min >60 [facility] Comment on above: GFR Calc Estimated GFR (MDRD) Non-Af Amer 44 mL/min >60 [facility] Comment on above: Non- GFR Calc Platelets bldOrdered By: Doe Sky on 01-01-2023 Platelets (Bld) [#/Vol] 225 10*3/uL 150-450 [facility] Serum or plasma calcium maria l urement (mass/volume)Ordered By: Aura Sky on 01-01-2023 Calcium [Mass/Vol] 8.3 mg/dL 8.5-10.1 [facility] Serum or plasma creatinine m easurement (mass/volume)Ordered By: Aura Sky on 01-01-2023 Creatinine [Mass/Vol] 1.63 mg/dL 0.70-1.30 [facility] Comment on above: The validity of the calculated GFR & GFRAA in patients over 70 years has not been determined. Clinical correlation is essential. Serum or plasma urea nitroge n measurement (mass/volume)Ordered By: Aura Sky on 01-01-2023 Urea nitrogen [Mass/Vol] 19 mg/dL 7-18 [facility] Thin prep Papanicolaou smear with manual screeningOrdered By: Aura Sky on 01-01-2023 Thin prep Papanicolaou smear with manual screening 2 5-15 [facility] Basophil percentageOrdered B y: Aura Sky on 12-02-2022 Chloride [Moles/Vol] 99 mmol/L 98-107 [facility] Cholesterol [Mass/Vol] 132 mg/dL <200 [facility] Comment on above: <200 mg/dL Desirable 200-240 mg/dL Borderline >240 mg/dL High Risk Glucose [Mass/Vol] 103 mg/dL 74-106 [facility] Comment on above: Fasting Glucose resu lt from 100 to 125 mg/dL suggests IMPAIRED HOMEOSTASIS per A.D.A. criteria. Potassium [Moles/Vol] 4.2 mmol/L 3.5-5.1 [facility] Sodium [Moles/Vol] 133 mmol/L 136-145 [facility] Triglyceride [Mass/Vol] 81 mg/dL <199 [facility] Comment on above: The drugs N-Acetylcy steine and Metamizole may falsely depress this assay.Serum Triglycerides Reference Interval Normal <150 mg/dL Borderline high 150 - 199 mg/dL High 200 - 499 mg/dL Very High > or = 500 mg/dL WBC (Bld) [#/Vol] 6.2 10*3/uL 4.4-11.0 [facility] Blood erythrocytes count (nu mber/volume)Ordered By: Aura Sky on 12-02-2022 RBC (Bld) [#/Vol] 3.89 10*6/uL 4.6-6.2 [facility] Blood hemoglobin measurement (mass/volume)Ordered By: Aura Sky on 12-02-2022 Hemoglobin (Bld) [Mass/Vol] 11.5 g/dL 13.0-16.5 [facility] Blood platelet mean volumeOr dered By: Aura Sky on 12-02-2022 Platelet mean volume (Bld) [Entitic vol] 10.2 fL 6.2-12.0 [facility] Determination of erythrocyte mean corpuscular volume (MCV)Ordered By: Aura Sky on 12-02-2022 MCV (RBC) [Entitic vol] 90.5 fL 80-94 [facility] Hematocrit Auto (Bld) [Volum e fraction]Ordered By: Aura Sky on 12-02-2022 Hematocrit (Bld) [Volume fraction] 35.2 % 40-54 [facility] Laboratory - Chemistry and C hemistry - challengeOrdered By: Aura Sky on 12-02-2022 CO2 [Moles/Vol] 30.0 mmol/L 21.0-32.0 [facility] Cobalamin (Vitamin B12) [Mass/Vol] 1096 pg/mL 211-911 [facility] Urea nitrogen/Creatinine [Mass ratio] 13.0 mg/mg 10-20 [facility] Laboratory - Hematology and Cell countsOrdered By: Aura Sky on 12-02-2022 Erythrocyte distribution width (RBC) [Entitic vol] 43.3 fL 35.1-43.9 [facility] Erythrocyte distribution width (RBC) [Ratio] 13.2 % 11.6-14.6 [facility] MCH (RBC) [Entitic mass] 29.6 pg 27.0-32.0 [facility] MCHC Auto (RBC) [Mass/Vol]Or dered By: uAra Sky on 12-02-2022 MCHC (RBC) [Mass/Vol] 32.7 g/dL 32-36 [facility] No Panel InformationOrdered By: Aura Sky on 12-02-2022 Estimated GFR (MDRD) Amer 57 mL/min >60 [facility] Comment on above: GFR Calc Estimated GFR (MDRD) Non-Af Amer 47 mL/min >60 [facility] Comment on above: Non- GFR Calc Thyroid Stimulating Hormone (TSH) 1.12 uIU/mL 0.358-3.74 [facility] Platelets bldOrdered By: Doe Sky on 12-02-2022 Platelets (Bld) [#/Vol] 278 10*3/uL 150-450 [facility] Serum or plasma calcium maria l urement (mass/volume)Ordered By: Aura Sky on 12-02-2022 Calcium [Mass/Vol] 8.3 mg/dL 8.5-10.1 [facility] Serum or plasma cholesterol in HDL measurement (mass/volume)Ordered By: Aura Sky on 12-02-2022 Cholesterol in HDL [Mass/Vol] 46 mg/dL >40 [facility] Comment on above: The drugs N-Acetylcy steine and Metamizole may falsely depress this assay. Reference Range HDL <40 mg/dL Low HDL Cholesterol HDL >or= 60 mg/dL High HDL Cholesterol Serum or plasma cholesterol in VLDL measurement (mass/volume)Ordered By: Aura Sky on 12-02-2022 Cholesterol in VLDL [Mass/Vol] 16 mg/dL 5-40 [facility] Serum or plasma creatinine m easurement (mass/volume)Ordered By: Aura Sky on 12-02-2022 Creatinine [Mass/Vol] 1.54 mg/dL 0.70-1.30 [facility] Comment on above: The validity of the calculated GFR & GFRAA in patients over 70 years has not been determined. Clinical correlation is essential. Serum or plasma low density lipoprotein (LDL) cholesterol measurement (mass/volume)Ordered By: Aura Sky on 12-02-2022 Cholesterol in LDL [Mass/Vol] 70 mg/dL 0-130 [facility] Serum or plasma urea nitroge n measurement (mass/volume)Ordered By: Aura Sky on 12-02-2022 Urea nitrogen [Mass/Vol] 20 mg/dL 7-18 [facility] Thin prep Papanicolaou smear with manual screeningOrdered By: Aura Sky on 12-02-2022 Thin prep Papanicolaou smear with manual screening 4 5-15 [facility] Whole blood hemoglobin A1c/t otal hemoglobin ratio (mass fraction)Ordered By: Aura Sky on 12-02-2022 HbA1c (Bld) [Mass fraction] 5.9 % 3.8-5.6 [facility] Comment on above: Normal < 5.7 % Predi abetic 5.7 - 6.4 % Diabetic >or= 6.5 % Please note range changes. Basophil percentageOrdered B y: Aura Sky on 11-02-2022 Chloride [Moles/Vol] 98 mmol/L 98-107 [facility] Glucose [Mass/Vol] 146 mg/dL 74-106 [facility] Comment on above: Fasting Glucose resu lt greater than or equal to 126 mg/dL suggests DIABETES MELLITUS per A.D.A. criteria. Potassium [Moles/Vol] 4.1 mmol/L 3.5-5.1 [facility] Sodium [Moles/Vol] 131 mmol/L 136-145 [facility] WBC (Bld) [#/Vol] 5.9 10*3/uL 4.4-11.0 [facility] Blood erythrocytes count (nu mber/volume)Ordered By: Aura Sky on 11-02-2022 RBC (Bld) [#/Vol] 3.51 10*6/uL 4.6-6.2 [facility] Blood hemoglobin measurement (mass/volume)Ordered By: Aura Sky on 11-02-2022 Hemoglobin (Bld) [Mass/Vol] 10.2 g/dL 13.0-16.5 [facility] Blood platelet mean volumeOr dered By: Aura Sky on 11-02-2022 Platelet mean volume (Bld) [Entitic vol] 10.9 fL 6.2-12.0 [facility] Determination of erythrocyte mean corpuscular volume (MCV)Ordered By: Aura Sky on 11-02-2022 MCV (RBC) [Entitic vol] 88.3 fL 80-94 [facility] Hematocrit Auto (Bld) [Volum e fraction]Ordered By: Aura Sky on 11-02-2022 Hematocrit (Bld) [Volume fraction] 31.0 % 40-54 [facility] Laboratory - Chemistry and C hemistry - challengeOrdered By: Aura Sky on 11-02-2022 CO2 [Moles/Vol] 29.0 mmol/L 21.0-32.0 [facility] Urea nitrogen/Creatinine [Mass ratio] 10.5 mg/mg 10-20 [facility] - Hematology and Cell countsOrdered By: Aura Sky on 11-02-2022 Erythrocyte distribution width (RBC) [Entitic vol] 41.5 fL 35.1-43.9 [facility] Erythrocyte distribution width (RBC) [Ratio] 12.9 % 11.6-14.6 [facility] MCH (RBC) [Entitic mass] 29.1 pg 27.0-32.0 [facility] MCHC Auto (RBC) [Mass/Vol]Or dered By: Aura Sky on 11-02-2022 MCHC (RBC) [Mass/Vol] 32.9 g/dL 32-36 [facility] No Panel InformationOrdered By: Aura Sky on 11-02-2022 Estimated GFR (MDRD) Amer 62 mL/min >60 [facility] Comment on above: GFR Calc Estimated GFR (MDRD) Non-Af Amer 51 mL/min >60 [facility] Comment on above: Non- GFR Calc Platelets bldOrdered By: Doe Sky on 11-02-2022 Platelets (Bld) [#/Vol] 230 10*3/uL 150-450 [facility] Serum or plasma calcium maria l urement (mass/volume)Ordered By: Aura Sky on 11-02-2022 Calcium [Mass/Vol] 8.0 mg/dL 8.5-10.1 [facility] Serum or plasma creatinine m easurement (mass/volume)Ordered By: Aura Sky on 11-02-2022 Creatinine [Mass/Vol] 1.43 mg/dL 0.70-1.30 [facility] Comment on above: The validity of the calculated GFR & GFRAA in patients over 70 years has not been determined. Clinical correlation is essential. Serum or plasma urea nitroge n measurement (mass/volume)Ordered By: Aura Sky on 11-02-2022 Urea nitrogen [Mass/Vol] 15 mg/dL 7-18 [facility] Thin prep Papanicolaou smear with manual screeningOrdered By: Aura Sky on 11-02-2022 Thin prep Papanicolaou smear with manual screening 4 5-15 [facility] Basophil percentageOrdered B y: Aura Sky on 10-07-2022 Chloride [Moles/Vol] 101 mmol/L 98-107 [facility] Glucose [Mass/Vol] 79 mg/dL 74-106 [facility] Potassium [Moles/Vol] 4.6 mmol/L 3.5-5.1 [facility] Sodium [Moles/Vol] 133 mmol/L 136-145 [facility] WBC (Bld) [#/Vol] 6.2 10*3/uL 4.4-11.0 [facility] Blood erythrocytes count (nu mber/volume)Ordered By: Aura Sky on 10-07-2022 RBC (Bld) [#/Vol] 3.69 10*6/uL 4.6-6.2 [facility] Blood hemoglobin measurement (mass/volume)Ordered By: Aura Sky on 10-07-2022 Hemoglobin (Bld) [Mass/Vol] 10.8 g/dL 13.0-16.5 [facility] Blood platelet mean volumeOr dered By: Aura Sky on 10-07-2022 Platelet mean volume (Bld) [Entitic vol] 10.8 fL 6.2-12.0 [facility] Determination of erythrocyte mean corpuscular volume (MCV)Ordered By: Aura Sky on 10-07-2022 MCV (RBC) [Entitic vol] 89.2 fL 80-94 [facility] Hematocrit Auto (Bld) [Volum e fraction]Ordered By: Aura Sky on 10-07-2022 Hematocrit (Bld) [Volume fraction] 32.9 % 40-54 [facility] Laboratory - Chemistry and C hemistry - challengeOrdered By: Aura Sky on 10-07-2022 CO2 [Moles/Vol] 26.0 mmol/L 21.0-32.0 [facility] Urea nitrogen/Creatinine [Mass ratio] 13.1 mg/mg 10-20 [facility] Laboratory - Hematology and Cell countsOrdered By: Aura Sky on 10-07-2022 Erythrocyte distribution width (RBC) [Entitic vol] 42.9 fL 35.1-43.9 [facility] Erythrocyte distribution width (RBC) [Ratio] 13.2 % 11.6-14.6 [facility] MCH (RBC) [Entitic mass] 29.3 pg 27.0-32.0 [facility] MCHC Auto (RBC) [Mass/Vol]Or dered By: Aura Sky on 10-07-2022 MCHC (RBC) [Mass/Vol] 32.8 g/dL 32-36 [facility] No Panel InformationOrdered By: Aura Sky on 10-07-2022 Estimated GFR (MDRD) Amer 61 mL/min >60 [facility] Comment on above: GFR Calc Estimated GFR (MDRD) Non-Af Amer 50 mL/min >60 [facility] Comment on above: Non- GFR Calc Platelets bldOrdered By: Doe Sky on 10-07-2022 Platelets (Bld) [#/Vol] 215 10*3/uL 150-450 [facility] Serum or plasma calcium maria l urement (mass/volume)Ordered By: Aura Sky on 10-07-2022 Calcium [Mass/Vol] 8.1 mg/dL 8.5-10.1 [facility] Serum or plasma creatinine m easurement (mass/volume)Ordered By: Aura Sky on 10-07-2022 Creatinine [Mass/Vol] 1.45 mg/dL 0.70-1.30 [facility] Comment on above: The validity of the calculated GFR & GFRAA in patients over 70 years has not been determined. Clinical correlation is essential. Serum or plasma urea nitroge n measurement (mass/volume)Ordered By: Aura Sky on 10-07-2022 Urea nitrogen [Mass/Vol] 19 mg/dL 7-18 [facility] Thin prep Papanicolaou smear with manual screeningOrdered By: Aura Sky on 10-07-2022 Thin prep Papanicolaou smear with manual screening 6 5-15 [facility] Basophil percentageOrdered B y: Aura Sky on 10-05-2022 Chloride [Moles/Vol] 97 mmol/L 98-107 [facility] Glucose [Mass/Vol] 101 mg/dL 74-106 [facility] Comment on above: Fasting Glucose resu lt from 100 to 125 mg/dL suggests IMPAIRED HOMEOSTASIS per A.D.A. criteria. Potassium [Moles/Vol] 4.5 mmol/L 3.5-5.1 [facility] Comment on above: Slight Hemolysis, Re sult may be falsely increased. Sodium [Moles/Vol] 132 mmol/L 136-145 [facility] WBC (Bld) [#/Vol] 8.1 10*3/uL 4.4-11.0 [facility] Blood erythrocytes count (nu mber/volume)Ordered By: Aura Sky on 10-05-2022 RBC (Bld) [#/Vol] 3.68 10*6/uL 4.6-6.2 [facility] Blood hemoglobin measurement (mass/volume)Ordered By: Aura Sky on 10-05-2022 Hemoglobin (Bld) [Mass/Vol] 10.7 g/dL 13.0-16.5 [facility] Blood platelet mean volumeOr dered By: Aura Sky on 10-05-2022 Platelet mean volume (Bld) [Entitic vol] 11.1 fL 6.2-12.0 [facility] Determination of erythrocyte mean corpuscular volume (MCV)Ordered By: Aura Sky on 10-05-2022 MCV (RBC) [Entitic vol] 89.4 fL 80-94 [facility] Hematocrit Auto (Bld) [Volum e fraction]Ordered By: Aura Sky on 10-05-2022 Hematocrit (Bld) [Volume fraction] 32.9 % 40-54 [facility] Laboratory - Chemistry and C hemistry - challengeOrdered By: Aura Sky on 10-05-2022 CO2 [Moles/Vol] 29.0 mmol/L 21.0-32.0 [facility] Urea nitrogen/Creatinine [Mass ratio] 10.0 mg/mg 10-20 [facility] Laboratory - Hematology and Cell countsOrdered By: Aura Sky on 10-05-2022 Erythrocyte distribution width (RBC) [Entitic vol] 42.5 fL 35.1-43.9 [facility] Erythrocyte distribution width (RBC) [Ratio] 12.9 % 11.6-14.6 [facility] MCH (RBC) [Entitic mass] 29.1 pg 27.0-32.0 [facility] MCHC Auto (RBC) [Mass/Vol]Or dered By: Aura Sky on 10-05-2022 MCHC (RBC) [Mass/Vol] 32.5 g/dL 32-36 [facility] No Panel InformationOrdered By: Aura Sky on 10-05-2022 Estimated GFR (MDRD) Amer 51 mL/min >60 [facility] Comment on above: GFR Calc Estimated GFR (MDRD) Non-Af Amer 42 mL/min >60 [facility] Comment on above: Non- GFR Calc Platelets bldOrdered By: Doe Sky on 10-05-2022 Platelets (Bld) [#/Vol] 222 10*3/uL 150-450 [facility] Serum or plasma calcium maria l urement (mass/volume)Ordered By: Aura Sky on 10-05-2022 Calcium [Mass/Vol] 8.3 mg/dL 8.5-10.1 [facility] Serum or plasma creatinine m easurement (mass/volume)Ordered By: Aura Sky on 10-05-2022 Creatinine [Mass/Vol] 1.70 mg/dL 0.70-1.30 [facility] Comment on above: The validity of the calculated GFR & GFRAA in patients over 70 years has not been determined. Clinical correlation is essential. Serum or plasma urea nitroge n measurement (mass/volume)Ordered By: Aura Sky on 10-05-2022 Urea nitrogen [Mass/Vol] 17 mg/dL 7-18 [facility] Thin prep Papanicolaou smear with manual screeningOrdered By: Aura Sky on 10-05-2022 Thin prep Papanicolaou smear with manual screening 6 5-15 [facility] Basophil percentageOrdered B y: Aura Sky on 09-03-2022 Chloride [Moles/Vol] 97 mmol/L 98-107 [facility] Glucose [Mass/Vol] 130 mg/dL 74-106 [facility] Comment on above: Fasting Glucose resu lt greater than or equal to 126 mg/dL suggests DIABETES MELLITUS per A.D.A. criteria. Potassium [Moles/Vol] 3.8 mmol/L 3.5-5.1 [facility] Sodium [Moles/Vol] 134 mmol/L 136-145 [facility] WBC (Bld) [#/Vol] 6.3 10*3/uL 4.4-11.0 [facility] Blood erythrocytes count (nu mber/volume)Ordered By: Aura Sky on 09-03-2022 RBC (Bld) [#/Vol] 3.47 10*6/uL 4.6-6.2 [facility] Blood hemoglobin measurement (mass/volume)Ordered By: Aura Sky on 09-03-2022 Hemoglobin (Bld) [Mass/Vol] 10.2 g/dL 13.0-16.5 [facility] Blood platelet mean volumeOr dered By: Aura Sky on 09-03-2022 Platelet mean volume (Bld) [Entitic vol] 11.3 fL 6.2-12.0 [facility] Determination of erythrocyte mean corpuscular volume (MCV)Ordered By: Aura Sky on 09-03-2022 MCV (RBC) [Entitic vol] 89.6 fL 80-94 [facility] Hematocrit Auto (Bld) [Volum e fraction]Ordered By: Aura Sky on 09-03-2022 Hematocrit (Bld) [Volume fraction] 31.1 % 40-54 [facility] - Chemistry and C hemistry - challengeOrdered By: Aura Sky on 09-03-2022 CO2 [Moles/Vol] 29.0 mmol/L 21.0-32.0 [facility] Urea nitrogen/Creatinine [Mass ratio] 12.1 mg/mg 10-20 [facility] - Hematology and Cell countsOrdered By: Aura Sky on 09-03-2022 Erythrocyte distribution width (RBC) [Entitic vol] 42.5 fL 35.1-43.9 [facility] Erythrocyte distribution width (RBC) [Ratio] 13.1 % 11.6-14.6 [facility] MCH (RBC) [Entitic mass] 29.4 pg 27.0-32.0 [facility] MCHC Auto (RBC) [Mass/Vol]Or dered By: Aura Sky on 09-03-2022 MCHC (RBC) [Mass/Vol] 32.8 g/dL 32-36 [facility] No Panel InformationOrdered By: Aura Sky on 09-03-2022 Estimated GFR (MDRD) Amer 59 mL/min >60 [facility] Comment on above: GFR Calc Estimated GFR (MDRD) Non-Af Amer 49 mL/min >60 [facility] Comment on above: Non- GFR Calc Platelets bldOrdered By: Doe Sky on 09-03-2022 Platelets (Bld) [#/Vol] 212 10*3/uL 150-450 [facility] Serum or plasma calcium maria l urement (mass/volume)Ordered By: Aura Sky on 09-03-2022 Calcium [Mass/Vol] 8.0 mg/dL 8.5-10.1 [facility] Serum or plasma creatinine m easurement (mass/volume)Ordered By: Aura Sky on 09-03-2022 Creatinine [Mass/Vol] 1.49 mg/dL 0.70-1.30 [facility] Comment on above: The validity of the calculated GFR & GFRAA in patients over 70 years has not been determined. Clinical correlation is essential. Serum or plasma urea nitroge n measurement (mass/volume)Ordered By: Aura Sky on 09-03-2022 Urea nitrogen [Mass/Vol] 18 mg/dL 7-18 [facility] Thin prep Papanicolaou smear with manual screeningOrdered By: Aura Sky on 09-03-2022 Thin prep Papanicolaou smear with manual screening 8 5-15 [facility] Basophil percentageOrdered B y: Aura Sky on 08-04-2022 Chloride [Moles/Vol] 97 mmol/L 98-107 [facility] Glucose [Mass/Vol] 109 mg/dL 74-106 [facility] Comment on above: Fasting Glucose resu lt from 100 to 125 mg/dL suggests IMPAIRED HOMEOSTASIS per A.D.A. criteria. Potassium [Moles/Vol] 4.1 mmol/L 3.5-5.1 [facility] Sodium [Moles/Vol] 131 mmol/L 136-145 [facility] WBC (Bld) [#/Vol] 7.6 10*3/uL 4.4-11.0 [facility] Blood erythrocytes count (nu mber/volume)Ordered By: Aura Sky on 08-04-2022 RBC (Bld) [#/Vol] 3.88 10*6/uL 4.6-6.2 [facility] Blood hemoglobin measurement (mass/volume)Ordered By: Aura Sky on 08-04-2022 Hemoglobin (Bld) [Mass/Vol] 11.1 g/dL 13.0-16.5 [facility] Blood platelet mean volumeOr dered By: Aura Sky on 08-04-2022 Platelet mean volume (Bld) [Entitic vol] 10.7 fL 6.2-12.0 [facility] Determination of erythrocyte mean corpuscular volume (MCV)Ordered By: Aura Sky on 08-04-2022 MCV (RBC) [Entitic vol] 88.9 fL 80-94 [facility] Hematocrit Auto (Bld) [Volum e fraction]Ordered By: Aura Sky on 08-04-2022 Hematocrit (Bld) [Volume fraction] 34.5 % 40-54 [facility] - Chemistry and C hemistry - challengeOrdered By: Aura Sky on 08-04-2022 CO2 [Moles/Vol] 29.0 mmol/L 21.0-32.0 [facility] Urea nitrogen/Creatinine [Mass ratio] 13.3 mg/mg 10-20 [facility] - Hematology and Cell countsOrdered By: Aura Sky on 08-04-2022 Erythrocyte distribution width (RBC) [Entitic vol] 43.9 fL 35.1-43.9 [facility] Erythrocyte distribution width (RBC) [Ratio] 13.4 % 11.6-14.6 [facility] MCH (RBC) [Entitic mass] 28.6 pg 27.0-32.0 [facility] MCHC Auto (RBC) [Mass/Vol]Or dered By: Aura Sky on 08-04-2022 MCHC (RBC) [Mass/Vol] 32.2 g/dL 32-36 [facility] No Panel InformationOrdered By: Aura Sky on 08-04-2022 Estimated GFR (MDRD) Amer 58 mL/min >60 [facility] Comment on above: GFR Calc Estimated GFR (MDRD) Non-Af Amer 48 mL/min >60 [facility] Comment on above: Non- GFR Calc Platelets bldOrdered By: Doe Sky on 08-04-2022 Platelets (Bld) [#/Vol] 271 10*3/uL 150-450 [facility] Serum or plasma calcium maria l urement (mass/volume)Ordered By: Aura Sky on 08-04-2022 Calcium [Mass/Vol] 8.3 mg/dL 8.5-10.1 [facility] Serum or plasma creatinine m easurement (mass/volume)Ordered By: Aura Sky on 08-04-2022 Creatinine [Mass/Vol] 1.50 mg/dL 0.70-1.30 [facility] Comment on above: The validity of the calculated GFR & GFRAA in patients over 70 years has not been determined. Clinical correlation is essential. Serum or plasma urea nitroge n measurement (mass/volume)Ordered By: Aura Sky on 08-04-2022 Urea nitrogen [Mass/Vol] 20 mg/dL 7-18 [facility] Thin prep Papanicolaou smear with manual screeningOrdered By: Aura Sky on 08-04-2022 Thin prep Papanicolaou smear with manual screening 5 5-15 [facility] Basophil percentageOrdered B y: Aura Sky on 07-06-2022 Chloride [Moles/Vol] 101 mmol/L 98-107 [facility] Glucose [Mass/Vol] 98 mg/dL 74-106 [facility] [facility] Potassium [Moles/Vol] 4.1 mmol/L 3.5-5.1 [facility] Sodium [Moles/Vol] 135 mmol/L 136-145 [facility] WBC (Bld) [#/Vol] 6.8 10*3/uL 4.4-11.0 [facility] Blood erythrocytes count (nu mber/volume)Ordered By: Aura Sky on 07-06-2022 RBC (Bld) [#/Vol] 3.40 10*6/uL 4.6-6.2 [facility] Blood hemoglobin measurement (mass/volume)Ordered By: Aura Sky on 07-06-2022 Hemoglobin (Bld) [Mass/Vol] 10.3 g/dL 13.0-16.5 [facility] Blood platelet mean volumeOr dered By: Aura Sky on 07-06-2022 Platelet mean volume (Bld) [Entitic vol] 11.3 fL 6.2-12.0 [facility] Determination of erythrocyte mean corpuscular volume (MCV)Ordered By: Aura Sky on 07-06-2022 MCV (RBC) [Entitic vol] 89.7 fL 80-94 [facility] Hematocrit Auto (Bld) [Volum e fraction]Ordered By: Aura Sky on 07-06-2022 Hematocrit (Bld) [Volume fraction] 30.5 % 40-54 [facility] Laboratory - Chemistry and C hemistry - challengeOrdered By: Aura Sky on 07-06-2022 CO2 [Moles/Vol] 32.0 mmol/L 21.0-32.0 [facility] Urea nitrogen/Creatinine [Mass ratio] 10.3 mg/mg 10-20 [facility] Laboratory - Hematology and Cell countsOrdered By: Aura Sky on 07-06-2022 Erythrocyte distribution width (RBC) [Entitic vol] 44.7 fL 35.1-43.9 [facility] Erythrocyte distribution width (RBC) [Ratio] 13.6 % 11.6-14.6 [facility] MCH (RBC) [Entitic mass] 30.3 pg 27.0-32.0 [facility] MCHC Auto (RBC) [Mass/Vol]Or dered By: Aura Sky on 07-06-2022 MCHC (RBC) [Mass/Vol] 33.8 g/dL 32-36 [facility] No Panel InformationOrdered By: Aura Sky on 07-06-2022 Estimated GFR (MDRD) Amer 60 mL/min >60 [facility] Comment on above: GFR Calc Estimated GFR (MDRD) Non-Af Amer 50 mL/min >60 [facility] Comment on above: Non- GFR Calc Platelets bldOrdered By: Doe Sky on 07-06-2022 Platelets (Bld) [#/Vol] 234 10*3/uL 150-450 [facility] Serum or plasma calcium maria l urement (mass/volume)Ordered By: Aura Sky on 07-06-2022 Calcium [Mass/Vol] 8.0 mg/dL 8.5-10.1 [facility] Serum or plasma creatinine m easurement (mass/volume)Ordered By: Aura Sky on 07-06-2022 Creatinine [Mass/Vol] 1.46 mg/dL 0.70-1.30 [facility] Comment on above: The validity of the calculated GFR & GFRAA in patients over 70 years has not been determined. Clinical correlation is essential. Serum or plasma urea nitroge n measurement (mass/volume)Ordered By: Aura Sky on 07-06-2022 Urea nitrogen [Mass/Vol] 15 mg/dL 7-18 [facility] Thin prep Papanicolaou smear with manual screeningOrdered By: Aura Sky on 07-06-2022 Thin prep Papanicolaou smear with manual screening 2 5-15 [facility] Basophil percentageOrdered B y: Aura Sky on 06-02-2022 Chloride [Moles/Vol] 104 mmol/L 98-107 [facility] Cholesterol [Mass/Vol] 140 mg/dL <200 [facility] Comment on above: <200 mg/dL Desirable 200-240 mg/dL Borderline >240 mg/dL High Risk Glucose [Mass/Vol] 140 mg/dL 74-106 [facility] Comment on above: Fasting Glucose resu lt greater than or equal to 126 mg/dL suggests DIABETES MELLITUS per A.D.A. criteria. Potassium [Moles/Vol] 4.2 mmol/L 3.5-5.1 [facility] Sodium [Moles/Vol] 136 mmol/L 136-145 [facility] Triglyceride [Mass/Vol] 75 mg/dL <199 [facility] Comment on above: The drugs N-Acetylcy steine and Metamizole may falsely depress this assay.Serum Triglycerides Reference Interval Normal <150 mg/dL Borderline high 150 - 199 mg/dL High 200 - 499 mg/dL Very High > or = 500 mg/dL WBC (Bld) [#/Vol] 6.5 10*3/uL 4.4-11.0 [facility] Blood erythrocytes count (nu mber/volume)Ordered By: Aura Sky on 06-02-2022 RBC (Bld) [#/Vol] 3.61 10*6/uL 4.6-6.2 [facility] Blood hemoglobin measurement (mass/volume)Ordered By: Aura Sky on 06-02-2022 Hemoglobin (Bld) [Mass/Vol] 10.6 g/dL 13.0-16.5 [facility] Blood platelet mean volumeOr dered By: Aura Sky on 06-02-2022 Platelet mean volume (Bld) [Entitic vol] 11.1 fL 6.2-12.0 [facility] CNOVon 06-02-2022 CNOV Office Visit (UROLMD ) -------- ELAINE COREA ([id number]) 1945 M Date Time Provider Department 06/02/22 9:15 AM JORDAN JORDAN JR During your visit today, we recorded the [...] (no units) Date Value 01/09/2016 neg Specific [place], [facility] (no units) Date Value 01/09/2016 1.010 [...] mouth daily at bedtime. blood sugar diagnostic (Tapatap ULTRA TEST) test strip Check blood sugars once a day. Levothyroxine 50 mcg cap Take 1 capsule by mouth once daily. lisinopril (ZESTRIL, PRINIVIL) 40 mg tablet Take 1 tablet by mouth once daily. lancets (SOLUS V2 LANCETS) 28 gauge [facility] Check blood sugar once daily. Dx: E11.40. [...] (HCC) 03/11/[address] 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 Normal [facility] Determination of erythrocyte mean corpuscular volume (MCV)Ordered By: Aura Sky on 06-02-2022 MCV (RBC) [Entitic vol] 90.0 fL 80-94 [facility] Hematocrit Auto (Bld) [Volum e fraction]Ordered By: Aura Sky on 06-02-2022 Hematocrit (Bld) [Volume fraction] 32.5 % 40-54 [facility] Laboratory - Chemistry and C hemistry - challengeOrdered By: Aura Sky on 06-02-2022 CO2 [Moles/Vol] 28.0 mmol/L 21.0-32.0 [facility] Cobalamin (Vitamin B12) [Mass/Vol] 856 pg/mL 211-911 [facility] Urea nitrogen/Creatinine [Mass ratio] 15.9 mg/mg 05-28 [facility] Laboratory - Hematology and Cell countsOrdered By: Aura Sky on 06-02-2022 Erythrocyte distribution width (RBC) [Entitic vol] 44.0 fL 35.1-43.9 [facility] Erythrocyte distribution width (RBC) [Ratio] 13.3 % 11.6-14.6 [facility] MCH (RBC) [Entitic mass] 29.4 pg 27.0-32.0 [facility]) [Mass/Vol]Or dered By: Aura Sky on 06-02-2022 MCHC (RBC) [Mass/Vol] 32.6 g/dL 32-36 [facility] No Panel InformationOrdered By: Aura Sky on 06-02-2022 Estimated GFR (MDRD) Amer 71 mL/min >60 [facility] Comment on above: GFR Calc Estimated GFR (MDRD) Non-Af Amer 59 mL/min >60 [facility] Comment on above: Non- GFR Calc Thyroid Stimulating Hormone (TSH) 2.81 uIU/mL 0.358-3.74 [facility] Platelets bldOrdered By: Doe Sky on 06-02-2022 Platelets (Bld) [#/Vol] 240 10*3/uL 150-450 [facility] Serum or plasma calcium maria l urement (mass/volume)Ordered By: Aura Sky on 06-02-2022 Calcium [Mass/Vol] 8.2 mg/dL 8.5-10.1 [facility] Serum or plasma cholesterol in HDL measurement (mass/volume)Ordered By: Aura Sky on 06-02-2022 Cholesterol in HDL [Mass/Vol] 54 mg/dL >40 [facility] Comment on above: The drugs N-Acetylcy steine and Metamizole may falsely depress this assay. Reference Range HDL <40 mg/dL Low HDL Cholesterol HDL >or= 60 mg/dL High HDL Cholesterol Serum or plasma cholesterol in VLDL measurement (mass/volume)Ordered By: Aura Sky on 06-02-2022 Cholesterol in VLDL [Mass/Vol] 15 mg/dL 5-40 [facility] Serum or plasma creatinine m easurement (mass/volume)Ordered By: Aura Sky on 06-02-2022 Creatinine [Mass/Vol] 1.26 mg/dL 0.70-1.30 [facility] Comment on above: The validity of the calculated GFR & GFRAA in patients over 70 years has not been determined. Clinical correlation is essential. Serum or plasma low density lipoprotein (LDL) cholesterol measurement (mass/volume)Ordered By: Aura Sky on 06-02-2022 Cholesterol in LDL [Mass/Vol] 71 mg/dL 0-130 [facility] Serum or plasma urea nitroge n measurement (mass/volume)Ordered By: Aura Sky on 06-02-2022 Urea nitrogen [Mass/Vol] 20 mg/dL 7-18 [facility] Thin prep Papanicolaou smear with manual screeningOrdered By: Aura Sky on 06-02-2022 Thin prep Papanicolaou smear with manual screening 4 5-15 [facility] Whole blood hemoglobin A1c/t otal hemoglobin ratio (mass fraction)Ordered By: Aura Sky on 06-02-2022 HbA1c (Bld) [Mass fraction] 7.1 % 3.8-5.6 [facility] Comment on above: Normal < 5.7 % Predi abetic 5.7 - 6.4 % Diabetic >or= 6.5 % Please note range changes. Basophil percentageon 2021 Chloride [Moles/Vol] 99 mmol/L 98-107 [facility] Work Phone: Cholesterol [Mass/Vol] 120 mg/dL <200 [facility] Work Phone: Comment on above: <200 mg/dL Desirable 200-240 mg/dL Borderline >240 mg/dL High Risk Glucose [Mass/Vol] 182 mg/dL 74-106 [facility] Work Phone: Comment on above: Fasting Glucose resu lt greater than or equal to 126 mg/dL suggests DIABETES MELLITUS per A.D.A. criteria. Potassium [Moles/Vol] 3.7 mmol/L 3.5-5.1 [facility] Work Phone: Sodium [Moles/Vol] 135 mmol/L 136-145 [facility] Work Phone: Triglyceride [Mass/Vol] 107 mg/dL <199 [facility] Work Phone: Comment on above: The drugs N-Acetylcy steine and Metamizole may falsely depress this assay.Serum Triglycerides Reference Interval Normal <150 mg/dL Borderline high 150 - 199 mg/dL High 200 - 499 mg/dL Very High > or = 500 mg/dL WBC (Bld) [#/Vol] 6.6 10*3/uL 4.4-11.0 [facility] Work Phone: Blood erythrocytes count (nu mber/volume)on 05-04-2022 RBC (Bld) [#/Vol] 3.26 10*6/uL 4.6-6.2 [facility]: Blood hemoglobin measurement (mass/volume)on 05-04-2022 Hemoglobin (Bld) [Mass/Vol] 9.4 g/dL 13.0-16.5 [facility] Work Phone: Blood platelet mean volumeon 05-04-2022 Platelet mean volume (Bld) [Entitic vol] 11.0 fL 6.2-12.0 [facility] Work Phone: Determination of erythrocyte mean corpuscular volume (MCV)on 05-04-2022 MCV (RBC) [Entitic vol] 91.7 fL 80-94 [facility] Work Phone: Hematocrit Auto (Bld) [Volum e fraction]on 05-04-2022 Hematocrit (Bld) [Volume fraction] 29.9 % 40-54 [facility] Work Phone: Laboratory - Chemistry and C hemistry - challengeon 05-04-2022 CO2 [Moles/Vol] 29.0 mmol/L 21.0-32.0 [facility] Work Phone: Cobalamin (Vitamin B12) [Mass/Vol] 442 pg/mL 211-911 [facility] Work Phone: Urea nitrogen/Creatinine [Mass ratio] 14.2 mg/mg 10-20 [facility] Work Phone: Laboratory - Hematology and Cell countson 05-04-2022 Erythrocyte distribution width (RBC) [Entitic vol] 45.2 fL 35.1-43.9 [facility] Work Phone: Erythrocyte distribution width (RBC) [Ratio] 13.5 % 11.6-14.6 [facility] Work Phone: MCH (RBC) [Entitic mass] 28.8 pg 27.0-32.0 [facility] Work Phone: MCHC Auto (RBC) [Mass/Vol]on 05-04-2022 MCHC (RBC) [Mass/Vol] 31.4 g/dL 32-36 [facility] Work Phone: No Panel Informationon 05-04 Estimated GFR (MDRD) Amer 76 mL/min >60 [facility] Work Phone: Comment on above: GFR Calc Estimated GFR (MDRD) Non-Af Amer 63 mL/min >60 [facility] Work Phone: Comment on above: Non- GFR Calc Thyroid Stimulating Hormone (TSH) 2.31 uIU/mL 0.358-3.74 [facility] Work Phone: Platelets bldon 05-04-2022 Platelets (Bld) [#/Vol] 256 10*3/uL 150-450 [facility] Work Phone: Serum or plasma calcium maria l urement (mass/volume)on 05-04-2022 Calcium [Mass/Vol] 8.0 mg/dL 8.5-10.1 [facility] Work Phone: Serum or plasma cholesterol in HDL measurement (mass/volume)on 05-04-2022 Cholesterol in HDL [Mass/Vol] 47 mg/dL >40 [facility] Work Phone: Comment on above: The drugs N-Acetylcy steine and Metamizole may falsely depress this assay. Reference Range HDL <40 mg/dL Low HDL Cholesterol HDL >or= 60 mg/dL High HDL Cholesterol Serum or plasma cholesterol in VLDL measurement (mass/volume)on 05-04-2022 Cholesterol in VLDL [Mass/Vol] 21 mg/dL 5-40 [facility] Work Phone: Serum or plasma creatinine m easurement (mass/volume)on 05-04-2022 Creatinine [Mass/Vol] 1.20 mg/dL 0.70-1.30 [facility] Work Phone: Comment on above: The validity of the calculated GFR & GFRAA in patients over 70 years has not been determined. Clinical correlation is essential. Serum or plasma low density lipoprotein (LDL) cholesterol measurement (mass/volume)on 05-04-2022 Cholesterol in LDL [Mass/Vol] 52 mg/dL 0-130 [facility] Work Phone: Serum or plasma urea nitroge n measurement (mass/volume)on 05-04-2022 Urea nitrogen [Mass/Vol] 17 mg/dL 7-18 [facility] Work Phone: Thin prep Papanicolaou smear with manual screeningon 05-04-2022 Thin prep Papanicolaou smear with manual screening 7 5-15 [facility] Work Phone: Whole blood hemoglobin A1c/t otal hemoglobin ratio (mass fraction)on 05-04-2022 HbA1c (Bld) [Mass fraction] 7.1 % 3.8-5.6 [facility] Work Phone: Comment on above: Normal < 5.7 % Predi abetic 5.7 - 6.4 % Diabetic >or= 6.5 % Please note range changes. Absolute lymphocyte counton 04-10-2022 Lymphocytes Auto (Unsp spec) [#/Vol] 2.55 10*3/uL 0.83-4.51 [facility] Work Phone: Basophil percentageon 2021 Basophil percentage 5-10 SEEN /hpf 0-5 [facility] Work Phone: Basophils/100 WBC (Bld) 0.2 % 0-1 [facility] Work Phone: Chloride [Moles/Vol] 100 mmol/L 98-107 [facility] Work Phone: Eosinophils/100 WBC (Bld) 1.0 % 0-5 [facility] Work Phone: Glucose [Mass/Vol] 181 mg/dL 74-106 [facility] Work Phone: Comment on above: Fasting Glucose resu lt greater than or equal to 126 mg/dL suggests DIABETES MELLITUS per A.D.A. criteria. Neutrophils (Bld) [#/Vol] 6.2 10*3/uL 2.0-7.7 [facility] Work Phone: Neutrophils/100 WBC (Bld) 62.5 % 47-70 [facility] Work Phone: Potassium [Moles/Vol] 4.4 mmol/L 3.5-5.1 [facility] Work Phone: Sodium [Moles/Vol] 133 mmol/L 136-[facility] Work Phone: WBC (Bld) [#/Vol] 10.0 10*3/uL 4.4-11.0 [facility] Work Phone: Bilirubin Test strip Ql (U)o n 04-10-2022 Bilirubin Ql (U) Negative Negative [facility] Work Phone: Blood erythrocytes count (nu mber/volume)on 04-10-2022 RBC (Bld) [#/Vol] 3.80 10*6/uL 4.6-6.2 [facility] Work Phone: Blood hemoglobin measurement (mass/volume)on 04-10-2022 Hemoglobin (Bld) [Mass/Vol] 11.1 g/dL 13.0-16.5 [facility] Work Phone: Blood lymphocytes/100 leukoc yteson 04-10-2022 Lymphocytes/100 WBC (Bld) 25.6 % 19-41 [facility] Work Phone: Blood monocytes/100 leukocyt eson 04-10-2022 Monocytes/100 WBC (Bld) 10.3 % 0-10 [facility] Work Phone: Blood platelet mean volumeon 04-10-2022 Platelet mean volume (Bld) [Entitic vol] 11.1 fL 6.2-12.0 [facility] Work Phone: CNOVon 04-10-2022 CNOV Office Visit (UROLMD ) -------- ELAINE COREA ([id number]) 1945 M IPA Date Time Provider Department 04/10/22 9:00 AM OUSMANE DURAND During your visit today, we recorded the following information about you: Weight Height 96 kg 1.676 m Ousmane Durand MD 04/10/2022 10:03 AM Addendum [facility] ESTABLISHED [...] last 2 years. [facility] and has his catheter changed every [...] mouth daily at bedtime. blood sugar diagnostic (LoveByteUCH ULTRA TEST) test strip Check blood sugars [...] visit. PHYSICAL EXAM: Ht 167.6 cm (5' 6") Wt 96 kg (211 lb 9.6 oz) [...] My final (more content not included)... Normal [facility] Determination of erythrocyte mean corpuscular volume (MCV)on 04-10-2022 MCV (RBC) [Entitic vol] 88.9 fL 80-94 [facility] Work Phone: Glucose Glucometer (BldC) [M ass/Vol]on 04-10-2022 Glucose [Mass/Vol] 102 mg/dL 74-106 [facility] Work Phone: Comment on above: MANAGEMENT OF PATIEN T CARE PER NURSING PROTOCOL Hematocrit Auto (Bld) [Volum e fraction]on 04-10-2022 Hematocrit (Bld) [Volume fraction] 33.8 % 40-54 [facility] Work Phone: Ketones Test strip Ql (U)on 04-10-2022 Ketones Ql (U) Negative Negative [facility] Work Phone: Laboratory - Chemistry and C hemistry - challengeon 04-10-2022 CO2 [Moles/Vol] 27.0 mmol/L 21.0-32.0 [facility] Work Phone: Urea nitrogen/Creatinine [Mass ratio] 16.2 mg/mg 10-20 [facility] Work Phone: Laboratory - Drug toxicology on 04-10-2022 Amphetamines Ql (U) Negative <1000 [facility]: Benzodiazepines Ql (U) Negative < 200 ng/mL [facility] Work Phone: Cannabinoids Screen Ql (U) Negative < 50 ng/mL [facility] Work Phone: Cocaine Ql (U) Negative < 300 ng/mL [facility] Work Phone: Opiates Ql (U) Negative < 300 ng/mL [facility] Work Phone: Laboratory - Hematology and Cell countson 04-10-2022 Erythrocyte distribution width (RBC) [Entitic vol] 43.7 fL 35.1-43.9 [facility] Work Phone: Erythrocyte distribution width (RBC) [Ratio] 13.4 % 11.6-14.6 [facility] Work Phone: Immature granulocytes/100 WBC (Bld) 0.400 % 0.0-0.9 [facility] Work Phone: Comment on above: IG% - Immature Granu locytes (promyelocytes, myelocytes and metamyelocytes) > 1% indicates that a LEFT SHIFT is Present. MCH (RBC) [Entitic mass] 29.2 pg 27.0-32.0 [facility] Work Phone: Nucleated RBC/100 WBC (Bld) [Ratio] 0 % 0-5 [facility] Work Phone: MCHC Auto (RBC) [Mass/Vol]on 04-10-2022 MCHC (RBC) [Mass/Vol] 32.8 g/dL 32-36 [facility] Work Phone: Magnesium ammonium phosphate crystal detectionon 04-10-2022 Triple phosphate crystals LM Ql (Urine sed) 4+ /hpf [facility] Work Phone: Mucus LM Ql (Urine sed)on Mucus Ql (Urine sed) 0 SEEN /hpf [facility] Work Phone: Nitrite Test strip Ql (U)on 04-10-2022 Nitrite Ql (U) Negative Negative [facility] Work Phone: No Panel Informationon 04-10 Estimated Creatinine Clearance Calc 38.32 ml/min [facility] Work Phone: Estimated GFR (MDRD) Amer 59 mL/min >60 [facility] Work Phone: Comment on above: GFR Calc Estimated GFR (MDRD) Non-Af Amer 49 mL/min >60 [facility] Work Phone: Comment on above: Non- GFR Calc Ethyl Alcohol Level 7.0 mg/dL [facility] Work Phone: Comment on above: The serum:whole bloo d ethanol ratio is approximately 1.14and varies slightly with hematocrit. Medical Alcohol reference interval and critical value innon-tolerant individuals; 50 - 100 Impairment 100 Intoxication 100 - 250 Severe Poisoning 250 - 400 Deep/possible fatal coma MDMA (Ecstasy) Screen Negative < 500 ng/mL [facility] Work Phone: Urine Barbiturates Screen Negative < 200 ng/mL [facility] Work Phone: Urine Drug Screen Comment [facility] Work Phone: Comment on above: CONFIRMATORY [...] Methadone Screen Negative < 300 ng/mL [facility] Work Phone: Platelets bldon 04-10-2022 Platelets (Bld) [#/Vol] 288 10*3/uL 150-450 [facility] Work Phone: Protein Test strip Ql (U)on 04-10-2022 Protein Ql (U) 100 mg/dl Negative [facility] Work Phone: Serum or plasma calcium maria l urement (mass/volume)on 04-10-2022 Calcium [Mass/Vol] 8.4 mg/dL 8.5-10.1 [facility] Work Phone: Serum or plasma creatinine m easurement (mass/volume)on 04-10-2022 Creatinine [Mass/Vol] 1.48 mg/dL 0.70-1.30 [facility] Work Phone: Comment on above: The validity of the calculated GFR & GFRAA in patients over 70 years has not been determined. Clinical correlation is essential. Serum or plasma urea nitroge n measurement (mass/volume)on 04-10-2022 Urea nitrogen [Mass/Vol] 24 mg/dL 7-18 [facility] Work Phone: Squamous epithelial cells de tection in urine sediment by light microscopyon 04-10-2022 Epithelial cells.squamous LM Ql (Urine sed) 5-10 SEEN /hpf 0-5 [facility] Work Phone: Thin prep Papanicolaou smear with manual screeningon 04-10-2022 Thin prep Papanicolaou smear with manual screening 6 5-15 [facility] Work Phone: Urine blood detectionon RBC Ql (U) 150 /ul Negative [facility] Work Phone: RBC Ql (U) 5-10 SEEN /hpf 0-5 [facility] Work Phone: Urine clarityon 04-10-2022 Clarity (U) Cloudy Clear [facility] Work Phone: Urine color determinationon 04-10-2022 Color (U) Yellow Yellow [facility] Work Phone: Urine glucose detectionon Glucose Ql (U) Normal mg/dl Normal [facility] Work Phone: Urine leukocyte esterase det ection by dipstickon 04-10-2022 Leukocyte esterase Test strip Ql (U) 500 /ul Negative [facility] Work Phone: Urine pHon 04-10-2022 pH (U) 8.0 [pH] 5.0 - 8.0 [facility] Work Phone: Urine phencyclidine (PCP) de tectionon 04-10-2022 Phencyclidine Ql (U) Negative < 25 ng/mL [facility] Work Phone: Urine sediment bacteria coun t by microscopy (number/high power field)on 04-10-2022 Bacteria LM.HPF (Urine sed) [#/Area] 2 /[HPF] None Seen [facility] Work Phone: Urine specific gravity measu rementon 04-10-2022 Specific gravity (U) [Rel density] 1.010 1.002-1.030 [facility] Work Phone: Urobilinogen Auto test strip Ql (U)on 04-10-2022 Urobilinogen Ql (U) Normal mg/dl Normal [facility] Work Phone: Basophil percentageon 2021 Chloride [Moles/Vol] 106 mmol/L 98-107 [facility] Work Phone: Glucose [Mass/Vol] 96 mg/dL 74-106 [facility] Work Phone: Potassium [Moles/Vol] 3.9 mmol/L 3.5-5.1 [facility] Work Phone: Sodium [Moles/Vol] 138 mmol/L 136-145 [facility] Work Phone: WBC (Bld) [#/Vol] 6.5 10*3/uL 4.4-11.0 [facility] Work Phone: Blood erythrocytes count (nu mber/volume)on 04-03-2022 RBC (Bld) [#/Vol] 3.71 10*6/uL 4.6-6.2 [facility] Work Phone: Blood hemoglobin measurement (mass/volume)on 04-03-2022 Hemoglobin (Bld) [Mass/Vol] 11.0 g/dL 13.0-16.5 [facility] Work Phone: Blood platelet mean volumeon 04-03-2022 Platelet mean volume (Bld) [Entitic vol] 11.3 fL 6.2-12.0 [facility] Work Phone: CNPNon 04-03-2022 CNPN Telephone (UROLWS) -------- ELAINE COREA ([id number]) 1945 M IPA Date Time Provider Department 04/03/22 FITZ RANGEL During your visit today, we recorded the following information about you: Guerita Reid RN 04/03/2022 9:48 AM Signed nurse Duran with [facility] calling. States pt. wants to discuss getting suprapubic cath placed. Wants to know where he would have this procedure done at? Pt. also has other urinary related questions that he would like answered. This nurse advised that pt come in for in person appointment to have all questions answered. Duran would like a call back with appt. time. Please call him at [phone] x [phone]. OLINDA Patel PA-C 04/03/2022 9:54 AM Signed Needs a Staff Urologist who does the SPT procedure, closest would be [facility] they will require a in-person visit and discussion with patient. They can call them direct , I am not familiar with who can do the surgery but I am sure there are 3-4 at least there. Fitz Rangel, [place], [place], PAMayra Verma LPN 04/03/2022 10:15 AM Signed Called Duran. No answer- left message. Verified name and date of . Guerita Reid RN 04/03/2022 10:16 AM Signed Called Duran, notified him of below information. States he plans to call Dr. Sosa in [place] and set up appt with him. Will consider having pt. see Fitz for any future urology needs. Guerita Reid RN Allergies As of Date: 04/03/2022 Noted Allergy Reaction MAXZIDE (TRIAMTERENE-HYDROCHLORO T*04/17/2016 14 - Other: See Comments Comments: Hyponatremia Date Reviewed: 09/20/2020 Reviewed by: Fitz (Charles) Saul - Fully Assessed Reason for Visit: Patient Question [2177] Prescriptions as of 04/03/2022 - BISACODYL RECTAL [...] daily at bedtime. - blood sugar diagnostic (ONETOUCH ULTRA TEST) test strip Check blood sugars once a day. - Levothyroxine 50 mcg cap Take 1 capsule by mouth once daily. - lisinopril (ZESTRIL, PRINIVIL) 40 mg tablet Take 1 tablet by mouth once daily. - amLODIPine (NORVASC) 10 mg tablet Take 1 tablet by mouth once daily. - lancets (SOLUS V2 LANCETS) 28 gauge [facility] Check blood sugar once daily. Dx: E11.40. [...] hypothyroidism [E03.9] (more content not included)... Normal [facility] Determination of erythrocyte mean corpuscular volume (MCV)on 04-03-2022 MCV (RBC) [Entitic vol] 90.3 fL 80-94 [facility] Work Phone: Hematocrit Auto (Bld) [Volum e fraction]on 04-03-2022 Hematocrit (Bld) [Volume fraction] 33.5 % 40-54 [facility] Work Phone: Laboratory - Chemistry and C hemistry - challengeon 04-03-2022 CO2 [Moles/Vol] 28.0 mmol/L 21.0-32.0 [facility] Work Phone: Urea nitrogen/Creatinine [Mass ratio] 15.2 mg/mg 10-20 [facility] Work Phone: Laboratory - Hematology and Cell countson 04-03-2022 Erythrocyte distribution width (RBC) [Entitic vol] 45.6 fL 35.1-43.9 [facility] Work Phone: Erythrocyte distribution width (RBC) [Ratio] 13.8 % 11.6-14.6 [facility] Work Phone: MCH (RBC) [Entitic mass] 29.6 pg 27.0-32.0 [facility] Work Phone: MCHC Auto (RBC) [Mass/Vol]on 04-03-2022 MCHC (RBC) [Mass/Vol] 32.8 g/dL 32-36 [facility] Work Phone: No Panel Informationon 04-03 Estimated GFR (MDRD) Amer 72 mL/min >60 [facility] Work Phone: Comment on above: GFR Calc Estimated GFR (MDRD) Non-Af Amer 60 mL/min >60 [facility] Work Phone: Comment on above: Non- GFR Calc Platelets bldon 04-03-2022 Platelets (Bld) [#/Vol] 233 10*3/uL 150-450 [facility] Work Phone: Serum or plasma calcium maria l urement (mass/volume)on 04-03-2022 Calcium [Mass/Vol] 8.1 mg/dL 8.5-10.1 [facility] Work Phone: Serum or plasma creatinine m easurement (mass/volume)on 04-03-2022 Creatinine [Mass/Vol] 1.25 mg/dL 0.70-1.30 [facility] Work Phone: Comment on above: The validity of the calculated GFR & GFRAA in patients over 70 years has not been determined. Clinical correlation is essential. Serum or plasma urea nitroge n measurement (mass/volume)on 04-03-2022 Urea nitrogen [Mass/Vol] 19 mg/dL 7-18 [facility] Work Phone: Thin prep Papanicolaou smear with manual screeningon 04-03-2022 Thin prep Papanicolaou smear with manual screening 4 5-15 [facility] Work Phone: Basophil percentageon 2021 Chloride [Moles/Vol] 104 mmol/L 98-107 [facility] Work Phone: Glucose [Mass/Vol] 85 mg/dL 74-106 [facility] Work Phone: Potassium [Moles/Vol] 3.7 mmol/L 3.5-5.1 [facility] Work Phone: Sodium [Moles/Vol] 139 mmol/L 136-145 [facility] Work Phone: WBC (Bld) [#/Vol] 7.4 10*3/uL 4.4-11.0 [facility] Work Phone: Blood erythrocytes count (nu mber/volume)on 03-03-2022 RBC (Bld) [#/Vol] 3.56 10*6/uL 4.6-6.2 [facility] Work Phone: Blood hemoglobin measurement (mass/volume)on 03-03-2022 Hemoglobin (Bld) [Mass/Vol] 10.7 g/dL 13.0-16.5 [facility] Work Phone: Blood platelet mean volumeon 03-03-2022 Platelet mean volume (Bld) [Entitic vol] 12.2 fL 6.2-12.0 [facility] Work Phone: Determination of erythrocyte mean corpuscular volume (MCV)on 03-03-2022 MCV (RBC) [Entitic vol] 93.0 fL 80-94 [facility] Work Phone: Hematocrit Auto (Bld) [Volum e fraction]on 03-03-2022 Hematocrit (Bld) [Volume fraction] 33.1 % 40-54 [facility] Work Phone: Laboratory - Chemistry and C hemistry - challengeon 03-03-2022 CO2 [Moles/Vol] 31.0 mmol/L 21.0-32.0 [facility] Work Phone: Urea nitrogen/Creatinine [Mass ratio] 14.0 mg/mg 10-20 [facility] Work Phone: Laboratory - Hematology and Cell countson 03-03-2022 Erythrocyte distribution width (RBC) [Entitic vol] 51.8 fL 35.1-43.9 [facility] Work Phone: Erythrocyte distribution width (RBC) [Ratio] 15.0 % 11.6-14.6 [facility] Work Phone: MCH (RBC) [Entitic mass] 30.1 pg 27.0-32.0 [facility] Work Phone: MCHC Auto (RBC) [Mass/Vol]on 03-03-2022 MCHC (RBC) [Mass/Vol] 32.3 g/dL 32-36 [facility] Work Phone: No Panel Informationon 03-03 Estimated GFR (MDRD) Amer 75 mL/min >60 [facility] Work Phone: Comment on above: GFR Calc Estimated GFR (MDRD) Non-Af Amer 62 mL/min >60 [facility] Work Phone: Comment on above: Non- GFR Calc Platelets bldon 03-03-2022 Platelets (Bld) [#/Vol] 196 10*3/uL 150-450 [facility] Work Phone: Serum or plasma calcium maria l urement (mass/volume)on 03-03-2022 Calcium [Mass/Vol] 8.3 mg/dL 8.5-10.1 [facility] Work Phone: Serum or plasma creatinine m easurement (mass/volume)on 03-03-2022 Creatinine [Mass/Vol] 1.21 mg/dL 0.70-1.30 [facility] Work Phone: Comment on above: The validity of the calculated GFR & GFRAA in patients over 70 years has not been determined. Clinical correlation is essential. Serum or plasma urea nitroge n measurement (mass/volume)on 03-03-2022 Urea nitrogen [Mass/Vol] 17 mg/dL 7-18 [facility] Work Phone: Thin prep Papanicolaou smear with manual screeningon 03-03-2022 Thin prep Papanicolaou smear with manual screening 4 5-15 [facility] Work Phone: Basophil percentageon 2021 Chloride [Moles/Vol] 104 mmol/L 98-107 [facility] Work Phone: Glucose [Mass/Vol] 104 mg/dL 74-106 [facility] Work Phone: Comment on above: Fasting Glucose resu lt from 100 to 125 mg/dL suggests IMPAIRED HOMEOSTASIS per A.D.A. criteria. Potassium [Moles/Vol] 3.8 mmol/L 3.5-5.1 [facility] Work Phone: Sodium [Moles/Vol] 139 mmol/L 136-145 [facility] Work Phone: WBC (Bld) [#/Vol] 7.4 10*3/uL 4.4-11.0 [facility] Work Phone: Blood erythrocytes count (nu mber/volume)on 02-02-2022 RBC (Bld) [#/Vol] 3.64 10*6/uL 4.6-6.2 [facility] Work Phone: Blood hemoglobin measurement (mass/volume)on 02-02-2022 Hemoglobin (Bld) [Mass/Vol] 10.5 g/dL 13.0-16.5 [facility] Work Phone: Blood platelet mean volumeon 02-02-2022 Platelet mean volume (Bld) [Entitic vol] 11.6 fL 6.2-12.0 [facility] Work Phone: Determination of erythrocyte mean corpuscular volume (MCV)on 02-02-2022 MCV (RBC) [Entitic vol] 91.2 fL 80-94 [facility] Work Phone: Hematocrit Auto (Bld) [Volum e fraction]on 02-02-2022 Hematocrit (Bld) [Volume fraction] 33.2 % 40-54 [facility] Work Phone: Laboratory - Chemistry and C hemistry - challengeon 02-02-2022 CO2 [Moles/Vol] 30.0 mmol/L 21.0-32.0 [facility] Work Phone: Cobalamin (Vitamin B12) [Mass/Vol] 789 pg/mL 211-911 [facility] Work Phone: Urea nitrogen/Creatinine [Mass ratio] 11.1 mg/mg 10-20 [facility] Work Phone: Laboratory - Hematology and Cell countson 02-02-2022 Erythrocyte distribution width (RBC) [Entitic vol] 49.2 fL 35.1-43.9 [facility] Work Phone: Erythrocyte distribution width (RBC) [Ratio] 14.8 % 11.6-14.6 [facility] Work Phone: MCH (RBC) [Entitic mass] 28.8 pg 27.0-32.0 [facility] Work Phone: MCHC Auto (RBC) [Mass/Vol]on 02-02-2022 MCHC (RBC) [Mass/Vol] 31.6 g/dL 32-36 [facility] Work Phone: No Panel Informationon 02-02 Estimated GFR (MDRD) Amer 72 mL/min >60 [facility] Work Phone: Comment on above: GFR Calc Estimated GFR (MDRD) Non-Af Amer 59 mL/min >60 [facility] Work Phone: Comment on above: Non- GFR Calc Platelets bldon 02-02-2022 Platelets (Bld) [#/Vol] 247 10*3/uL 150-450 [facility] Work Phone: Serum or plasma calcium maria l urement (mass/volume)on 02-02-2022 Calcium [Mass/Vol] 8.5 mg/dL 8.5-10.1 [facility] Work Phone: Serum or plasma creatinine m easurement (mass/volume)on 02-02-2022 Creatinine [Mass/Vol] 1.26 mg/dL 0.70-1.30 [facility] Work Phone: Comment on above: The validity of the calculated GFR & GFRAA in patients over 70 years has not been determined. Clinical correlation is essential. Serum or plasma urea nitroge n measurement (mass/volume)on 02-02-2022 Urea nitrogen [Mass/Vol] 14 mg/dL 7-18 [facility] Work Phone: Thin prep Papanicolaou smear with manual screeningon 02-02-2022 Thin prep Papanicolaou smear with manual screening 5 5-15 [facility] Work Phone: Basophil percentageon 05-27- 2022 Chloride [Moles/Vol] 98 mmol/L 98-[address] [facility] [address] [facility] Work Phone: Glucose [Mass/Vol] 88 mg/dL 74-[address] [facility] Work Phone: Potassium [Moles/Vol] 3.3 mmol/L 3.5-5.[address] [facility] Work Phone: Sodium [Moles/Vol] 132 mmol/L 136-[address] [facility] Work Phone: WBC (Bld) [#/Vol] 9.0 10*3/uL 4.4-11.0 [facility] Work Phone: Blood erythrocytes count (nu mber/volume)on 01-02-2022 RBC (Bld) [#/Vol] 3.67 10*6/uL 4.6-6.2 [facility] Work [facility]: Blood hemoglobin measurement (mass/volume)on 01-02-2022 Hemoglobin (Bld) [Mass/Vol] 10.6 g/dL 13.0-16.5 [facility] Work Phone: Blood platelet mean volumeon 01-02-2022 Platelet mean volume (Bld) [Entitic vol] 12.0 fL 6.2-12.0 [facility] Work Phone: Determination of erythrocyte mean corpuscular volume (MCV)on 01-02-2022 MCV (RBC) [Entitic vol] 87.7 fL 80-94 [facility] Work Phone: Hematocrit Auto (Bld) [Volum e fraction]on 01-02-2022 Hematocrit (Bld) [Volume fraction] 32.2 % 40-54 [facility] Work Phone: Laboratory - Chemistry and C hemistry - challengeon 01-02-2022 CO2 [Moles/Vol] 28.0 mmol/L 21.0-32.0 [facility] Work Phone: Urea nitrogen/Creatinine [Mass ratio] 10.3 mg/mg 10-20 [facility] Work Phone: Laboratory - Hematology and Cell countson 01-02-2022 Erythrocyte distribution width (RBC) [Entitic vol] 45.0 fL 35.1-43.9 [facility] Work Phone: Erythrocyte distribution width (RBC) [Ratio] 13.9 % 11.6-14.6 [facility] Work Phone: MCH (RBC) [Entitic mass] 28.9 pg 27.0-32.0 [facility] Work Phone: MCHC Auto (RBC) [Mass/Vol]on 01-02-2022 MCHC (RBC) [Mass/Vol] 32.9 g/dL 32-36 [facility] Work Phone: No Panel Informationon 01-02 Estimated GFR (MDRD) Amer 61 mL/min >60 [facility] Work Phone: Comment on above: GFR Calc Estimated GFR (MDRD) Non-Af Amer 50 mL/min >60 [facility] Work Phone: Comment on above: Non- GFR Calc Platelets bldon 01-02-2022 Platelets (Bld) [#/Vol] 234 10*3/uL 150-450 [facility] Work Phone: Serum or plasma calcium maria l urement (mass/volume)on 01-02-2022 Calcium [Mass/Vol] 8.0 mg/dL 8.5-10.1 [facility] Work Phone: Serum or plasma creatinine m easurement (mass/volume)on 01-02-2022 Creatinine [Mass/Vol] 1.45 mg/dL 0.70-1.30 [facility] Work Phone: Comment on above: The validity of the calculated GFR & GFRAA in patients over 70 years has not been determined. Clinical correlation is essential. Serum or plasma urea nitroge n measurement (mass/volume)on 01-02-2022 Urea nitrogen [Mass/Vol] 15 mg/dL 7-18 [facility] Work Phone: Thin prep Papanicolaou smear with manual screeningon 01-02-2022 Thin prep Papanicolaou smear with manual screening 6 5-15 [facility] Work Phone: Basophil percentageon 2021 Chloride [Moles/Vol] 101 mmol/L 98-107 [facility] Work Phone: Glucose [Mass/Vol] 99 mg/dL 74-106 [facility] Work Phone: Potassium [Moles/Vol] 3.7 mmol/L 3.5-5.1 [facility] Work Phone: Sodium [Moles/Vol] 136 mmol/L 136-145 [facility] Work Phone: Laboratory - Chemistry and C hemistry - challengeon 12-17-2021 CO2 [Moles/Vol] 32.0 mmol/L 21.0-32.0 [facility] Work Phone: Urea nitrogen/Creatinine [Mass ratio] 13.3 mg/mg 10-20 [facility] Work Phone: No Panel Informationon 12-17 Estimated GFR (MDRD) Amer 88 mL/min >60 [facility] Work Phone: Comment on above: GFR Calc Estimated GFR (MDRD) Non-Af Amer 73 mL/min >60 [facility] Work Phone: Comment on above: Non- GFR Calc Serum or plasma calcium maria l urement (mass/volume)on 12-17-2021 Calcium [Mass/Vol] 8.2 mg/dL 8.5-10.1 [facility] Work Phone: Serum or plasma creatinine m easurement (mass/volume)on 12-17-2021 Creatinine [Mass/Vol] 1.05 mg/dL 0.70-1.30 [facility] Work Phone: Comment on above: The validity of the calculated GFR & GFRAA in patients over 70 years has not been determined. Clinical correlation is essential. Serum or plasma urea nitroge n measurement (mass/volume)on 12-17-2021 Urea nitrogen [Mass/Vol] 14 mg/dL 7-18 [facility] Work Phone: Thin prep Papanicolaou smear with manual screeningon 12-17-2021 Thin prep Papanicolaou smear with manual screening 3 5-15 [facility] Work Phone: Basophil percentageon 2021 Chloride [Moles/Vol] 95 mmol/L 98-107 [facility] Work Phone: Cholesterol [Mass/Vol] 107 mg/dL <200 [facility] Work Phone: Comment on above: <200 mg/dL Desirable 200-240 mg/dL Borderline >240 mg/dL High Risk Glucose [Mass/Vol] 84 mg/dL 74-106 [facility] Work Phone: Potassium [Moles/Vol] 4.3 mmol/L 3.5-5.1 [facility] Work Phone: Sodium [Moles/Vol] 128 mmol/L 136-145 [facility] Work Phone: Triglyceride [Mass/Vol] 81 mg/dL <199 [facility] Work Phone: Comment on above: The drugs N-Acetylcy steine and Metamizole may falsely depress this assay.Serum Triglycerides Reference Interval Normal <150 mg/dL Borderline high 150 - 199 mg/dL High 200 - 499 mg/dL Very High > or = 500 mg/dL WBC (Bld) [#/Vol] 11.1 10*3/uL 4.4-11.0 [facility] Work Phone: Blood erythrocytes count (nu mber/volume)on 12-02-2021 RBC (Bld) [#/Vol] 3.81 10*6/uL 4.6-6.2 [facility] Work Phone: Blood hemoglobin measurement (mass/volume)on 12-02-2021 Hemoglobin (Bld) [Mass/Vol] 11.0 g/dL 13.0-16.5 [facility] Work Phone: Blood platelet mean volumeon 12-02-2021 Platelet mean volume (Bld) [Entitic vol] 12.1 fL 6.2-12.0 [facility] Work Phone: Determination of erythrocyte mean corpuscular volume (MCV)on 12-02-2021 MCV (RBC) [Entitic vol] 85.6 fL 80-94 [facility] Work Phone: Hematocrit Auto (Bld) [Volum e fraction]on 12-02-2021 Hematocrit (Bld) [Volume fraction] 32.6 % 40-54 [facility] Work Phone: Laboratory - Chemistry and C hemistry - challengeon 12-02-2021 CO2 [Moles/Vol] 27.0 mmol/L 21.0-32.0 [facility] Work Phone: Urea nitrogen/Creatinine [Mass ratio] 10.6 mg/mg 10-20 [facility] Work Phone: Laboratory - Hematology and Cell countson 12-02-2021 Erythrocyte distribution width (RBC) [Entitic vol] 41.9 fL 35.1-43.9 [facility] Work Phone: Erythrocyte distribution width (RBC) [Ratio] 13.4 % 11.6-14.6 [facility] Work Phone: MCH (RBC) [Entitic mass] 28.9 pg 27.0-32.0 [facility] Work Phone: MCHC Auto (RBC) [Mass/Vol]on 12-02-2021 MCHC (RBC) [Mass/Vol] 33.7 g/dL 32-36 [facility] Work Phone: No Panel Informationon 12-02 Estimated GFR (MDRD) Amer 38 mL/min >60 [facility] Work Phone: Comment on above: GFR Calc Estimated GFR (MDRD) Non-Af Amer 32 mL/min >60 [facility] Work Phone: Comment on above: Non- GFR Calc Thyroid Stimulating Hormone (TSH) 2.27 uIU/mL 0.358-3.74 [facility] Work Phone: Platelets bldon 12-02-2021 Platelets (Bld) [#/Vol] 226 10*3/uL 150-450 [facility] Work Phone: Serum or plasma calcium maria l urement (mass/volume)on 12-02-2021 Calcium [Mass/Vol] 8.2 mg/dL 8.5-10.[address] [facility] Work Phone: Serum or plasma cholesterol in HDL measurement (mass/volume)on 12-02-2021 Cholesterol in HDL [Mass/Vol] 36 mg/dL >40 [facility] Work Phone: Comment on above: The drugs N-Acetylcy steine and Metamizole may falsely depress this assay. Reference Range HDL <40 mg/dL Low HDL Cholesterol HDL >or= 60 mg/dL High HDL Cholesterol Serum or plasma cholesterol in VLDL measurement (mass/volume)on 12-02-2021 Cholesterol in VLDL [Mass/Vol] 16 mg/dL 5-40 [facility] Work Phone: Serum or plasma creatinine m easurement (mass/volume)on 12-02-2021 Creatinine [Mass/Vol] 2.17 mg/dL 0.70-1.30 [facility] Work Phone: Comment on above: The validity of the calculated GFR & GFRAA in patients over 70 years has not been determined. Clinical correlation is essential. Serum or plasma low density lipoprotein (LDL) cholesterol measurement (mass/volume)on 12-02-2021 Cholesterol in LDL [Mass/Vol] 55 mg/dL 0-130 [facility] Work Phone: Serum or plasma urea nitroge n measurement (mass/volume)on 12-02-2021 Urea nitrogen [Mass/Vol] 23 mg/dL 7-18 [facility] Work Phone: Thin prep Papanicolaou smear with manual screeningon 12-02-2021 Thin prep Papanicolaou smear with manual screening 6 5-15 [facility] Work Phone: Whole blood hemoglobin A1c/t otal hemoglobin ratio (mass fraction)on 12-02-2021 HbA1c (Bld) [Mass fraction] 5.9 % 3.8-5.6 [facility] Work Phone: Comment on above: Normal < 5.7 % Predi abetic 5.7 - 6.4 % Diabetic >or= 6.5 % Please note range changes. Basophil percentageon 2021 Chloride [Moles/Vol] 104 mmol/L 98-107 [facility] Work Phone: Glucose [Mass/Vol] 90 mg/dL 74-106 [facility] Work Phone: Potassium [Moles/Vol] 3.6 mmol/L 3.5-5.1 [facility] Work Phone: Sodium [Moles/Vol] 139 mmol/L 136-145 [facility] Work Phone: WBC (Bld) [#/Vol] 8.2 10*3/uL 4.4-11.0 [facility] Work Phone: Blood erythrocytes count (nu mber/volume)on 11-03-2021 RBC (Bld) [#/Vol] 4.23 10*6/uL 4.6-6.2 [facility] Work Phone: Blood hemoglobin measurement (mass/volume)on 11-03-2021 Hemoglobin (Bld) [Mass/Vol] 12.5 g/dL 13.0-16.5 [facility] Work Phone: Blood platelet mean volumeon 11-03-2021 Platelet mean volume (Bld) [Entitic vol] 11.8 fL 6.2-12.0 [facility] Work Phone: Determination of erythrocyte mean corpuscular volume (MCV)on 11-03-2021 MCV (RBC) [Entitic vol] 89.4 fL 80-94 [facility] Work Phone: Hematocrit Auto (Bld) [Volum e fraction]on 11-03-2021 Hematocrit (Bld) [Volume fraction] 37.8 % 40-54 [facility] Work Phone: Laboratory - Chemistry and C hemistry - challengeon 11-03-2021 CO2 [Moles/Vol] 32.0 mmol/L 21.0-32.0 [facility] Work Phone: Urea nitrogen/Creatinine [Mass ratio] 13.6 mg/mg 10-20 [facility] Work Phone: Laboratory - Hematology and Cell countson 11-03-2021 Erythrocyte distribution width (RBC) [Entitic vol] 45.1 fL 35.1-43.9 [facility] Work Phone: Erythrocyte distribution width (RBC) [Ratio] 13.9 % 11.6-14.6 [facility] Work Phone: MCH (RBC) [Entitic mass] 29.6 pg 27.0-32.0 [facility] Work Phone: MCHC Auto (RBC) [Mass/Vol]on 11-03-2021 MCHC (RBC) [Mass/Vol] 33.1 g/dL 32-36 [facility] Work Phone: No Panel Informationon 11-03 Estimated GFR (MDRD) Amer 90 mL/min >60 [facility] Work Phone: Comment on above: GFR Calc Estimated GFR (MDRD) Non-Af Amer 75 mL/min >60 [facility] Work Phone: Comment on above: Non- GFR Calc Platelets bldon 11-03-2021 Platelets (Bld) [#/Vol] 227 10*3/uL 150-450 [facility] Work Phone: Serum or plasma calcium maria l urement (mass/volume)on 11-03-2021 Calcium [Mass/Vol] 8.3 mg/dL 8.5-10.1 [facility] Work Phone: Serum or plasma creatinine m easurement (mass/volume)on 11-03-2021 Creatinine [Mass/Vol] 1.03 mg/dL 0.70-1.30 [facility] Work Phone: Comment on above: The validity of the calculated GFR & GFRAA in patients over 70 years has not been determined. Clinical correlation is essential. Serum or plasma urea nitroge n measurement (mass/volume)on 11-03-2021 Urea nitrogen [Mass/Vol] 14 mg/dL 7-18 [facility] Work Phone: Thin prep Papanicolaou smear with manual screeningon 11-03-2021 Thin prep Papanicolaou smear with manual screening 3 5-15 [facility] Work Phone: Basophil percentageon 2021 Chloride [Moles/Vol] 105 mmol/L 98-107 [facility] Work Phone: Glucose [Mass/Vol] 60 mg/dL 74-106 [facility] Work Phone: Potassium [Moles/Vol] 3.4 mmol/L 3.5-5.1 [facility] Work Phone: Sodium [Moles/Vol] 137 mmol/L 136-145 [facility] Work Phone: WBC (Bld) [#/Vol] 7.6 10*3/uL 4.4-11.0 [facility] Work Phone: Blood erythrocytes count (nu mber/volume)on 10-06-2021 RBC (Bld) [#/Vol] 4.11 10*6/uL 4.6-6.2 [facility] Work Phone: Blood hemoglobin measurement (mass/volume)on 10-06-2021 Hemoglobin (Bld) [Mass/Vol] 12.1 g/dL 13.0-16.5 [facility] Work Phone: Blood platelet mean volumeon 10-06-2021 Platelet mean volume (Bld) [Entitic vol] 11.6 fL 6.2-12.0 [facility] Work Phone: Determination of erythrocyte mean corpuscular volume (MCV)on 10-06-2021 MCV (RBC) [Entitic vol] 88.3 fL 80-94 [facility] Work Phone: Hematocrit Auto (Bld) [Volum e fraction]on 10-06-2021 Hematocrit (Bld) [Volume fraction] 36.3 % 40-54 [facility] Work Phone: Laboratory - Chemistry and C hemistry - challengeon 10-06-2021 CO2 [Moles/Vol] 31.0 mmol/L 21.0-32.0 [facility] Work Phone: Urea nitrogen/Creatinine [Mass ratio] 11.7 mg/mg 10-20 [facility] Work Phone: Laboratory - Hematology and Cell countson 10-06-2021 Erythrocyte distribution width (RBC) [Entitic vol] 45.5 fL 35.1-43.9 [facility] Work Phone: Erythrocyte distribution width (RBC) [Ratio] 14.1 % 11.6-14.6 [facility] Work Phone: MCH (RBC) [Entitic mass] 29.4 pg 27.0-32.0 [facility] Work Phone: MCHC Auto (RBC) [Mass/Vol]on 10-06-2021 MCHC (RBC) [Mass/Vol] 33.3 g/dL 32-36 [facility] Work Phone: No Panel Informationon 10-06 Estimated GFR (MDRD) Amer 90 mL/min >60 [facility] Work Phone: Comment on above: GFR Calc Estimated GFR (MDRD) Non-Af Amer 75 mL/min >60 [facility] Work Phone: Comment on above: Non- GFR Calc Platelets bldon 10-06-2021 Platelets (Bld) [#/Vol] 242 10*3/uL 150-450 [facility] Work Phone: Serum or plasma calcium maria l urement (mass/volume)on 02-28-2022 Calcium [Mass/Vol] 8.5 mg/dL 8.5-10.1 [facility] Work Phone: Serum or plasma creatinine m easurement (mass/volume)on 10-06-2021 Creatinine [Mass/Vol] 1.03 mg/dL 0.70-1.30 [facility] Work Phone: Comment on above: The validity of the calculated GFR & GFRAA in patients over 70 years has not been determined. Clinical correlation is essential. Serum or plasma urea nitroge n measurement (mass/volume)on 10-06-2021 Urea nitrogen [Mass/Vol] 12 mg/dL 7-18 [facility] Work Phone: Thin prep Papanicolaou smear with manual screeningon 10-06-2021 Thin prep Papanicolaou smear with manual screening 1 5-15 [facility] Work Phone: Basophil percentageon 2021 Chloride [Moles/Vol] 101 mmol/L 98-107 [facility] Work Phone: Glucose [Mass/Vol] 75 mg/dL 74-106 [facility] Work Phone: Potassium [Moles/Vol] 3.5 mmol/L 3.5-5.1 [facility] Work Phone: Sodium [Moles/Vol] 135 mmol/L 136-145 [facility] Work Phone: WBC (Bld) [#/Vol] 8.4 10*3/uL 4.4-11.0 [facility] Work Phone: Blood erythrocytes count (nu mber/volume)on 09-03-2021 RBC (Bld) [#/Vol] 3.92 10*6/uL 4.6-6.2 [facility] Work Phone: Blood hemoglobin measurement (mass/volume)on 09-03-2021 Hemoglobin (Bld) [Mass/Vol] 11.5 g/dL 13.0-16.5 [facility] Work Phone: Blood platelet mean volumeon 09-03-2021 Platelet mean volume (Bld) [Entitic vol] 12.1 fL 6.2-12.0 [facility] Work Phone: Determination of erythrocyte mean corpuscular volume (MCV)on 09-03-2021 MCV (RBC) [Entitic vol] 89.3 fL 80-94 [facility] Work Phone: Hematocrit Auto (Bld) [Volum e fraction]on 09-03-2021 Hematocrit (Bld) [Volume fraction] 35.0 % 40-54 [facility] Work Phone: Laboratory - Chemistry and C hemistry - challengeon 09-03-2021 CO2 [Moles/Vol] 30.0 mmol/L 21.0-32.0 [facility] Work Phone: Urea nitrogen/Creatinine [Mass ratio] 11.7 mg/mg 10-20 [facility] Work Phone: Laboratory - Hematology and Cell countson 09-03-2021 Erythrocyte distribution width (RBC) [Entitic vol] 44.5 fL 35.1-43.9 [facility] Work Phone: Erythrocyte distribution width (RBC) [Ratio] 13.7 % 11.6-14.6 [facility] Work Phone: MCH (RBC) [Entitic mass] 29.3 pg 27.0-32.0 [facility] Work Phone: MCHC Auto (RBC) [Mass/Vol]on 09-03-2021 MCHC (RBC) [Mass/Vol] 32.9 g/dL 32-36 [facility] Work Phone: No Panel Informationon 09-03 Estimated GFR (MDRD) Amer 83 mL/min >60 [facility] Work Phone: Comment on above: GFR Calc Estimated GFR (MDRD) Non-Af Amer 69 mL/min >60 [facility] Work Phone: Comment on above: Non- GFR Calc Platelets bldon 09-03-2021 Platelets (Bld) [#/Vol] 213 10*3/uL 150-450 [facility] Work Phone: Serum or plasma calcium maria l urement (mass/volume)on 09-03-2021 Calcium [Mass/Vol] 8.2 mg/dL 8.5-10.1 [facility] Work Phone: Serum or plasma creatinine m easurement (mass/volume)on 09-03-2021 Creatinine [Mass/Vol] 1.11 mg/dL 0.70-1.30 [facility] Work Phone: Comment on above: The validity of the calculated GFR & GFRAA in patients over 70 years has not been determined. Clinical correlation is essential. Serum or plasma urea nitroge n measurement (mass/volume)on 09-03-2021 Urea nitrogen [Mass/Vol] 13 mg/dL 7-18 [facility] Work Phone: Thin prep Papanicolaou smear with manual screeningon 09-03-2021 Thin prep Papanicolaou smear with manual screening 4 5-15 [facility] Work Phone: Basophil percentageon 2020 Chloride [Moles/Vol] 102 mmol/L 98-107 [facility] Work Phone: Glucose [Mass/Vol] 80 mg/dL 74-106 [facility] Work Phone: Comment on above: Please note revised GLUCOSE reference range effective 2017. Potassium [Moles/Vol] 3.6 mmol/L 3.5-5.1 [facility] Work Phone: Sodium [Moles/Vol] 137 mmol/L 136-145 [facility] Work Phone: Laboratory - Chemistry and C hemistry - challengeon 08-04-2021 CO2 [Moles/Vol] 30.0 mmol/L 21.0-32.0 [facility] Work Phone: Urea nitrogen/Creatinine [Mass ratio] 8.3 mg/mg 10-20 [facility] Work Phone: No Panel Informationon 08-04 Estimated GFR (MDRD) Amer 76 mL/min >60 [facility] Work Phone: Comment on above: GFR Calc Estimated GFR (MDRD) Non-Af Amer 63 mL/min >60 [facility] Work Phone: Comment on above: Non- GFR Calc Serum or plasma calcium maria l urement (mass/volume)on 08-04-2021 Calcium [Mass/Vol] 8.5 mg/dL 8.5-10.1 [facility] Work Phone: Serum or plasma creatinine m easurement (mass/volume)on 08-04-2021 Creatinine [Mass/Vol] 1.20 mg/dL 0.70-1.30 [facility] Work Phone: Comment on above: The validity of the calculated GFR & GFRAA in patients over 70 years has not been determined. Clinical correlation is essential. Serum or plasma urea nitroge n measurement (mass/volume)on 08-04-2021 Urea nitrogen [Mass/Vol] 10 mg/dL 7-18 [facility] Work Phone: Thin prep Papanicolaou smear with manual screeningon 08-04-2021 Thin prep Papanicolaou smear with manual screening 5 5-15 [facility] Work Phone: Basophil percentageon 2020 Chloride [Moles/Vol] 103 mmol/L 98-107 [facility] Work Phone: Glucose [Mass/Vol] 116 mg/dL 74-106 [facility] Work Phone: Comment on above: Fasting Glucose resu lt from 100 to 125 mg/dL suggests IMPAIRED HOMEOSTASIS per A.D.A. criteria.Please note revised GLUCOSE reference range effective 2017. Potassium [Moles/Vol] 3.7 mmol/L 3.5-5.1 [facility] Work Phone: Sodium [Moles/Vol] 138 mmol/L 136-145 [facility] Work Phone: WBC (Bld) [#/Vol] 9.8 10*3/uL 4.4-11.0 [facility] Work Phone: Blood erythrocytes count (nu mber/volume)on 07-29-2021 RBC (Bld) [#/Vol] 3.78 10*6/uL 4.6-6.2 [facility] Work [facility]: Blood hemoglobin measurement (mass/volume)on 07-29-2021 Hemoglobin (Bld) [Mass/Vol] 11.1 g/dL 13.0-16.5 [facility] Work Phone: Blood platelet mean volumeon 07-29-2021 Platelet mean volume (Bld) [Entitic vol] 11.6 fL 6.2-12.0 [facility] Work Phone: Determination of erythrocyte mean corpuscular volume (MCV)on 07-29-2021 MCV (RBC) [Entitic vol] 90.5 fL 80-94 [facility] Work Phone: Hematocrit Auto (Bld) [Volum e fraction]on 07-29-2021 Hematocrit (Bld) [Volume fraction] 34.2 % 40-54 [facility] Work Phone: Laboratory - Chemistry and C hemistry - challengeon 07-29-2021 CO2 [Moles/Vol] 30.0 mmol/L 21.0-32.0 [facility] Work Phone: Urea nitrogen/Creatinine [Mass ratio] 11.1 mg/mg 10-20 [facility] Work Phone: Laboratory - Hematology and Cell countson 07-29-2021 Erythrocyte distribution width (RBC) [Entitic vol] 47.4 fL 35.1-43.9 [facility] Work Phone: Erythrocyte distribution width (RBC) [Ratio] 14.2 % 11.6-14.6 [facility] Work Phone: MCH (RBC) [Entitic mass] 29.4 pg 27.0-32.0 [facility] Work Phone: MCHC Auto (RBC) [Mass/Vol]on 07-29-2021 MCHC (RBC) [Mass/Vol] 32.5 g/dL 32-36 [facility] Work Phone: No Panel Informationon 07-29 Estimated GFR (MDRD) Amer 78 mL/min >60 [facility] Work Phone: Comment on above: GFR Calc Estimated GFR (MDRD) Non-Af Amer 64 mL/min >60 [facility] Work Phone: Comment on above: Non- GFR Calc Platelets bldon 07-29-2021 Platelets (Bld) [#/Vol] 221 10*3/uL 150-450 [facility] Work Phone: Serum or plasma calcium maria l urement (mass/volume)on 07-29-2021 Calcium [Mass/Vol] 8.1 mg/dL 8.5-10.1 [facility] Work Phone: Serum or plasma creatinine m easurement (mass/volume)on 07-29-2021 Creatinine [Mass/Vol] 1.17 mg/dL 0.70-1.30 [facility] Work Phone: Comment on above: The validity of the calculated GFR & GFRAA in patients over 70 years has not been determined. Clinical correlation is essential. Serum or plasma urea nitroge n measurement (mass/volume)on 07-29-2021 Urea nitrogen [Mass/Vol] 13 mg/dL 7-18 [facility] Work Phone: Thin prep Papanicolaou smear with manual screeningon 07-29-2021 Thin prep Papanicolaou smear with manual screening 5 5-15 [facility] Work Phone: Culture, urine Bacteria identified Cx Nom (U) Proteus mirabilis [facility] Work Phone: Bacteria identified Cx Nom (U) Enterococcus faecalis [facility] Work Phone: Vital Signs Date Time Vital Sign Value Performing Clinician Faci mina 06-02-2022 09:00-0400 Body height 167.6 cm Jordan Jordan Jr., MD Work Phone: [facility] 06-02-2022 09:00-0400 Body weight 98.97 kg Jordan Jordan Jr., MD Work Phone: [facility] 04-11-2022 06:57-0400 Diastolic blood pressure 74 mm[Hg] [facility] Work Phone: 04-11-2022 06:57-0400 Heart rate 64 /min [facility] Work Phone: 04-11-2022 06:57-0400 Respiratory rate 18 /min [facility] Work Phone: 04-11-2022 06:57-0400 Systolic blood pressure 159 mm[Hg] [facility] Work Phone: 04-11-2022 05:03-0400 SaO2% (BldA) [Mass fraction] 94 % [facility] Work Phone: 04-10-2022 19:37-0400 Body temperature 98.7 [degF] [facility] Work Phone: 04-10-2022 16:33-0400 Body height 167.64 cm [facility] Work Phone: 04-10-2022 16:33-0400 Body mass index (BMI) [Ratio] 35.4 kg/m2 [facility] Work Phone: 04-10-2022 16:33-0400 Body weight 99.4 kg [facility] Work Phone: 04-10-2022 09:00-0400 Body height 167.6 cm Ousmane Durand MD Work Phone: [facility] 04-10-2022 09:00-0400 Body weight 95.98 kg Ousmane Durand MD Work Phone: [facility] Encounters Encounter Date Encounter Type Care Provider Facility Start: 06-04-2025 End: 06-04-2025 ambulatory Aura Sky OLS Facility:[facility] Start: 05-04-2025 End: 05-04-2025 ambulatory Aura Sky OLS Facility:[facility] Start: 04-05-2025 End: 04-05-2025 ambulatory Aura Sky Facility:[facility] Start: 04-03-2025 End: 04-03-2025 ambulatory Aura Sky Facility:[facility] Start: 03-05-2025 End: 03-05-2025 ambulatory Aura Sky Facility:[facility] Start: 02-01-2025 Registered Referred Aura Sky MD [facility] Start: 02-01-2025 End: 02-01-2025 ambulatory Aura Sky Facility:[facility] Start: 01-02-2025 End: 01-02-[address] Aura Sky MD Work Phone: [facility] Start: 01-02-2025 End: 01-02-2025 Departed Referred A[facility] Sky MD [facility] Start: 01-02-2025 End: 01-02-2025 ambulatory Aura Noé Sky OLS Facility:[facility] Start: 12-08-2024 End: 12-08-[address] Aura Sky MD Work Phone: [facility] Work Phone: Start: 12-08-2024 End: 12-08-2024 Departed Referred Aura [facility]resp[facility]Renato [facility] Start: 12-08-2024 End: 12-08-2024 ambulatory Aura Sky OLS Facility:[facility] Start: 11-30-2024 End: 11-30-2024 Departed Referred Aura CrespoRenato [facility] Start: 11-30-2024 Registered Referred Aura Sky MD [facility] Start: 11-30-2024 End: 11-30-2024 ambulatory Aura Noé Sky OLS Facility:[facility] Start: 11-01-2024 End: 11-01-[address] Aura Sky MD Work Phone: [facility] Work Phone: Start: 11-01-2024 End: 11-01-2024 Departed Referred Aura Sky MD [facility] Start: 11-01-2024 End: 11-01-2024 ambulatory Aura CORONADO Facility:[facility] Start: 10-03-2024 ambulatory Aura CORONADO Facil ity:[facility] Start: 10-03-2024 Registered Referred Aura Sky MD [facility] Start: 09-04-2024 ambulatory Aura Sky OLS Facil ity:[facility] Start: 09-04-2024 Registered Referred Aura Sky MD [facility] Start: 08-03-2024 End: 08-03-2024 Departed Referred Aura CrespoRenato [facility] Start: 08-03-2024 End: 08-03-2024 ambulatory Aura CORONADO Facility:[facility] Start: 07-03-2024 End: 07-03-2024 ambulatory Aura CORONADO Facility:[facility] Start: 11-02-2023 End: 11-02-2023 ambulatory [facility] Work Phone: Start: 11-02-2023 End: 11-02-2023 Departed Referred [facility] Start: 10-27-2023 End: 10-27-2023 ambulatory [facility] Work Phone: Start: 10-27-2023 End: 10-27-2023 Departed Referred [facility] Start: 09-29-2023 End: 09-29-2023 ambulatory [facility] Work Phone: Start: 09-29-2023 End: 09-29-2023 Departed Referred [facility] Start: 09-03-2023 End: 09-03-2023 ambulatory [facility] Work Phone: Start: 09-03-2023 End: 09-03-2023 Departed Referred [facility] Start: 06-03-2023 End: 06-03-2023 ambulatory [facility] Work Phone: Start: 06-03-2023 End: 06-03-2023 Departed Referred [facility] Start: 03-03-2023 End: 03-03-2023 ambulatory [facility] Work Phone: Start: 03-03-2023 End: 03-03-2023 Departed Referred [facility] Start: 01-01-2023 End: 01-01-2023 Departed Referred [facility] Start: 12-02-2022 End: 12-02-2022 ambulatory [facility] Work Phone: Start: 12-02-2022 End: 12-02-2022 Departed Referred [facility] Start: 11-02-2022 End: 11-02-2022 ambulatory [facility] Work Phone: Start: 11-02-2022 End: 11-02-2022 Departed Referred [facility] Start: 11-02-2022 Registered Referred [facility] Start: 10-07-2022 End: 10-07-2022 ambulatory [facility] Work Phone: Start: 10-07-2022 End: 10-07-2022 Departed Referred [facility] Start: 10-05-2022 End: 10-05-2022 Departed Referred [facility] Start: 09-03-2022 End: 09-03-2022 ambulatory [facility] Work Phone: Start: 09-03-2022 End: 09-03-2022 Departed Referred [facility] Start: 08-04-2022 End: 08-04-2022 ambulatory [facility] Work Phone: Start: 08-04-2022 End: 08-04-2022 Departed Referred [facility] Start: 08-04-2022 Registered Referred [facility] Start: 07-06-2022 End: 07-06-2022 ambulatory [facility] Work Phone: Start: 07-06-2022 End: 07-06-2022 Departed Referred [facility] Start: 06-02-2022 End: 06-02-2022 Patient encounter procedure Jordan Jordan MD Work Phone: Urology Comment on above: Urinary retention (P rimary Dx) Start: 06-02-2022 End: 06-02-2022 ambulatory JORDAN JORDAN JR Facility:[facility] Start: 06-02-2022 End: 06-02-2022 Departed Referred [facility] Start: 05-04-2022 End: 05-04-2022 ambulatory [facility] Work Phone: Start: 05-04-2022 End: 05-04-2022 Departed Referred [facility] Start: 04-10-2022 End: 04-11-2022 Emergency department patient visit [facility] Start: 04-10-2022 End: 04-10-2022 ambulatory [facility] Facility:[facility] Start: 04-10-2022 End: 04-10-2022 Patient encounter procedure Ousmane Durand MD Work Phone: Urology Comment on above: Urine retention (Dodie antonino Dx); Benign prostatic hyperplasia with urinary retention Start: 04-03-2022 End: 04-03-2022 ambulatory [facility] Work Phone: Start: 04-03-2022 End: 04-03-2022 Departed Referred [facility] Start: 03-03-2022 Registered [facility] Start: 02-02-2022 End: 02-02-2022 Departed Referred [facility] Start: 01-02-2022 End: 01-02-2022 Departed Referred [facility] Start: 12-17-2021 End: 12-17-2021 Departed Referred [facility] Start: 12-02-2021 End: 12-02-2021 Departed Referred [facility] Start: 12-02-2021 Registered [facility] Start: 11-03-2021 End: 11-03-2021 Departed Referred [facility] Start: 11-03-2021 Registered [facility] Start: 10-06-2021 End: 10-06-2021 Departed Referred [facility] Start: 10-06-2021 Registered [facility] Start: 09-03-2021 End: 09-03-2021 Departed Referred [facility] Start: 08-04-2021 Registered [facility] Start: 07-29-2021 Registered [facility] Procedures Date Procedure Procedure Detail Performing Clinician [...] profile DTAP,TDAP,TD (2 - Td or Tdap) [facility] Start: 04-09-2022 Influenza vaccination INFLUENZA (#1) [facility] Start: 09-20-2021 COVID-19 VACCINE (4 - Booster for Pfizer series) COVID-19 VACCINE (4 - Booster for Pfizer series) [facility] Start: 08-09-2021 ADVANCE DIRECTIVE DISCUSSION ADVANCE DIRECTIVE DISCUSSION [facility] Start: 08-09-2021 DEPRESSION ASSESSMENT DEPRESSION ASS ESSMENT [facility] Start: 07-15-2021 COVID-19 VACCINE (4 - Booster for Pfizer series) COVID-19 VACCINE (4 - Booster for Pfizer series) [facility] Start: 02-20-2017 Adult depression screening assessment DEPRESSION SCREENING [facility] Start: 10-03-2016 Hepatitis B screening URINE ALBUMIN:CREATININE RATIO [facility] Start: 10-03-2016 Hepatitis B surface antibody level LDL CHOLESTEROL [facility] Start: 06-19-2016 Hemoglobin A1c/Hemoglobin.total in Blood HBA1C [facility] Start: 06-12-2016 3 comp foot exam completed DIABETIC FOOT EXAM [facility] Start: 06-12-2016 PNEUMOCOCCAL: 65+ (2 - PPSV23 if available, else PCV20) PNEUMOCOCCAL: 65+ (2 - PPSV23 if available, else PCV20) [facility] Start: 06-12-2016 PNEUMOCOCCAL: 65+ (2 - PPSV23 or PCV20) PNEUMOCOCCAL: 65+ (2 - PPSV23 or PCV20) [facility] Start: 1995 SHINGRIX VACCINE (1 of 2) SHINGRIX VACCINE (1 of 2) [facility] Start: 1963 ANNUAL PCP TEAM SOUS CHEF SAVANNA DISEASE VISIT ANNUAL PCP TEAM CHRONIC DISEASE VISIT [facility] Start: 1963 BP CONTROLLED (<130/80) BP CONTROLLE D (<130/80) [facility] Start: 1963 HEPATITIS C SCREENING HEPATITIS C SC REENING [facility] Start: 1955 Hepatitis C antibody , confirmatory test DILATED RETINAL EXAM [facility] Patient referral [facility] Work Phone: Immunizations Immunization Date Immunization Notes Care Provider Gary feldman 07-08-2020 tetanus toxoid, reduced diphtheria toxoid, and acellular pertussis vaccine, adsorbed [facility] 10-10-2015 tetanus toxoid, reduced diphtheria toxoid, and acellular pertussis vaccine, adsorbed Ousmane Durand MD Work Phone: [facility] Work Phone: 06-12-2015 influenza, injectable, quadrivalent, contains preservative Ousmane Durand MD Work Phone: [facility] Work Phone: 06-12-2015 pneumococcal conjugate vaccine, 13 valent Ousmane Durand MD Work Phone: [facility] Work Phone: Payers Date Payer Category Payer Self-pay [id number] 2024 Unknown [id number] 2014 Medicaid [facility] MEDICAID [id number] 2014-Present [phone] [address] [place] [address] Medicaid [id number] 2014 Medicare [facility] MEDIC[facility] MEDICARE [id number] 2014-Present [phone] [address] [place] [address] Medicare [id number] 2014 Unknown [id number] Unknown [id number] Unknown [id number] Unknown [id number] Unknown [id number] Unknown [id number] Unknown [id number] Unknown [id number] Unknown [id number] Unknown [id number] Unknown [id number] Unknown [id number] Unknown [id number] Unknown [id number] Social History Date Type Detail Facility Start: 08-03-2020 End: 04-10-2022 Tobacco smoking status ALIS Unknown if ever smoked [facility] Start: 08-03-2020 None [facility] Start: 08-03-2020 - [facility] Start: 12-18-2015 Non-smoker [facility] Start: 1945 Sex Assigned At Male W [facility] Start: 02-26-2016 End: 04-10-2022 Tobacco smoking status ALIS Never smoked tobacco [facility] Start: 02-26-2016 Tobacco use and exposure Smokeless tobacco non-user [facility] Start: 04-10-2022 End: 06-02-2022 Alcohol intake Current non-drinker of alcohol (finding) [facility] Start: 1945 Sex Assigned At Not on file [facility] Start: 03-31-2022 End: 06-02-2022 Exposure to SARS-CoV-2 (event) Not sure [facility] Start: 11-23-2024 Sex Male (finding) [facility] Medical Equipment Procedure Code Equipment Code Equipment Origin al Text Equipment Identifier Dates Start: 12-23-2015 Comment on above: Check blood sugars o nce a day. Check blood sugar on ce daily. Dx: E11.40. Mental Status Date Assessment Result Facility 04-10-2022 Cognitive function Level Of Cons ciousness Awake;Alert;Inappropriate;Rest less [facility] Work Phone: Progress note 06-02-2022 Note Date & Type Note Facility 06-02-2022 Note HNO ID: [id number] Author: Jordan Jordan Jr., MD Service: ? [...] (no units) Date Value 01/09/2016 neg Specific [place], Ur (no units) Date Value 01/09/2016 1.010 [...] daily. lancets (SOLUS V2 LANCETS) 28 gauge [facility] Check blood sugar once daily. Dx: E11.40. [...] (HCC) 03/11/[address] Krause at the [facility] center Type 2 diabetes, uncontrolled, with [...] well nourished Skin: (more content not included)... [facility] History of Present illness Narrative 06-02-2022 Jordan Jordan Jr., MD - 06/02/2022 9:03 [...] (no units) Date Value 01/09/2016 neg Specific [place], [facility] (no units) Date Value 01/09/2016 1.010 [...] daily. lancets (SOLUS V2 LANCETS) 28 gauge [facility] Check blood sugar once daily. Dx: E11.40. [...] (HCC) 03/11/[address] [facility] Type 2 diabetes, uncontrolled, with neuropathy [...] Jr, MD 06/02/2022 documented in this encounter [facility] Progress note 04-10-2022 Note Date & Type Note Facility 04-10-2022 Note HNO ID: [id number] Author: Ousmane Durand MD Service: ? Author Type: Physician Type: Progress Notes Filed: 04/10/2022 10:03 AM Note Text: [facility] ESTABLISHED [...] last 2 years. Patient lives in a jail facility and has his catheter changed every [...] mouth daily at bedtime. blood sugar diagnostic ([place] ULTRA TEST) test strip Check blood sugars [...] visit. PHYSICAL EXAM: Ht 167.6 cm (5' 6") Wt 96 kg (211 lb 9.6 oz) [...] mail. Ousmane Durand M.D, MS Associate Staff [facility] and (more content not included)... [facility] History of Present illness Narrative 04-10-2022 Ousmane Durand MD - 04/10/2022 8:58 AM EDT Note Date & Type Note Facility 04-10-2022 History of Presen t illness Narrative Images from the original note were not included. [facility] ESTABLISHED [...] last 2 years. Patient [facility] and has his catheter changed every [...] mouth daily at bedtime. blood sugar diagnostic ([place]ap ULTRA TEST) test strip Check blood sugars once a day. Levothyroxine 50 mcg cap Take 1 capsule by mouth once daily. lisinopril (ZESTRIL, PRINIVIL) 40 mg tablet Take 1 tablet by mouth once daily. amLODIPine (NORVASC) 10 mg tablet Take 1 tablet by mouth once daily. lancets (SOLUS V2 LANCETS) 28 gauge [facility] Check blood sugar once daily. Dx: E11.40. glipiZIDE (GLUCOTROL) 10 mg tablet Take 2 tablets by mouth once daily. divalproex DR (DEPAKOTE) 500 mg EC tablet Take 1,000 mg by mouth daily at bedtime. No current facility-administered medications for this visit. PHYSICAL EXAM: Ht 167.6 cm (5' 6") Wt 96 kg (211 lb 9.6 oz) [...] to requesting physician via US mail. Ousmane Duradn M.D, MS Associate Staff [facility] [place] [facility] Cc: Dr. Aura Jordan documented in this encounter [facility] Evaluation note Note Date & Type Note Facility Evaluation note No assessment information availa ble [facility] Work Phone: Evaluation note Note Date & Type Note Facility Evaluation note Diagnosis Urine retention- Primary Retention of urine, unspecified Benign prostatic hyperplasia with urinary retention documented in this encounter [facility] Evaluation note Note Date & Type Note Facility Evaluation note Diagnosis Urinary retention- Primary Retention of urine, unspecified documented in this encounter [facility] Reason for referral (narrative) Note Date & Type Note Facility Reason for referral (narrative) No reason for referral information available [facility] Work Phone: Chief Complaint and Reason for Visit Chief Complaint SNF LABWORK SNF LAB WORK SNF LAB WORK SNF LABWORK SNF LABWORK Chief Complaint SNF LAB WOR K SNF LABWORK SNF LABWORK SNF LABWORK Chief Complaint SNF LAB WOR K SNF LABWORK SNF LABWORK SNF LABWORK SNF LABWORK Chief Complaint SNF LABWORK SNF LABWORK SNF LABWORK SNF LABWORK SNF LABWORK Chief Complaint SNF LABWORK SNF LABWORK SNF LABWORK SNF LABWORK LABWORK Chief Complaint SNF LABWORK LABWORK SNF LABWORK LABOWORK general illness Chief Complaint LABWORK SNF LABWORK LABOWORK general illness SNF LAB WORK Chief Complaint SNF LABWORK LABOWORK general illness SNF LAB WORK SNF LABWORK Chief Complaint SNF LAB WOR K SNF LABWORK SNF LABWORK LABWORK Chief Complaint SNF LABWORK SNF LABWORK LABWORK SNF LAB WORK Chief Complaint LABWORK SNF LAB WORK SNF LBWORK SNF LAB WORK Chief Complaint LABWORK SNF LAB WORK SNF LBWORK SNF LAB WORK LABWORK Chief Complaint SNF LAB WOR K SNF LBWORK SNF LAB WORK LABWORK SNF LAB WORK Chief Complaint SNF LAB WOR K SNF LABWORK SNF LAB WORK Chief Complaint SNF LAB WOR K SNF LAB WORK Chief Complaint SNF LAB WOR K SNF LABWORK Chief Complaint SNF LABWORK SNF LAB WORK SNF LAB WORK Chief Complaint SNF LABWORK SNF LAB WORK SNF LAB WORK SNF LAB WORK Chief Complaint Admit Date SNF LAB WORK August 03 5:00am SNF LAB WORK October 03 4:00am LABWORK November 01, 2024 5:0 0am Chief Complaint Admit Date SNF LAB WORK October 03 4:00am LABWORK November 01, 2024 5:0 0am LABWORK December 08, 2024 3:41pm Chief Complaint Admit Date LABWORK November 01, 2024 5:0 0am SNF LAB WORK November 30, 2024 5 :00am LABWORK December 08, 2024 3:41pm SNF LAB WORK January 02, 2025 5:0 0am [...] No November 27, 016 6:00am Living Will No August 03 020 10:55pm Power of Mold Technician No August 03, 2020 10:55pm Advance Directive Response Recorded Date/ Time Name of Medical Power of Mold Technician POA, Dillon Samantha, brother in law. April 10, 2022 4:36pm Advance Directives No November 27, 016 6:00am Living Will Yes April 10, 4:36pm Power of Mold Technician Yes April 10, 2022 4:36pm Advance Directive Response Recorded Date/ Time Advance Directives No November 27, 016 5:00am Living Will Yes April 10, 3:36pm Power of Mold Technician Yes April 10, 2022 3:36pm Advance Directive Response Recorded Date/ Time Advance Directives No November 27, 016 6:00am Living Will Yes April 10, 4:36pm Power of Mold Technician Yes April 10, 2022 4:36pm Advance Directive [...] or prosecute any alcohol or drug abuse patient.[facility] the event this information is protected by the Federal Confidentiality of Alcohol and Drug Abuse Patient Records regulations: The Federal rules restrict any use of the information to criminally investigate or prosecute any alcohol or drug abuse patient.[facility] Reason for Visit (unrecogniz ed section and content) Reason Comments Established Patient Cath patient/interes ed in supra pubic cath Reason Comments Established Patient Discussion/SPT tube placement Care Teams (unrecognized sec tion and content) Reservoir Engineering Advisor Relationship Specialty Start Date End Date Aura Sky MD [address] [place] [id number] PCP - General Family Practice 04/03/22 Reservoir Engineering Advisor Relationship Specialty Start Date End Date Aura Sky MD [address] [place], [place] [address], [place] [id number] PCP - General Family Medicine 04/03/22 Team Status: Active Member Role Status Dates Dr. Aura Sky MD Family Provider Active Dr. Aura kSy MD Primary Care Provider Active Team Status: Inactive Member Role Status Dates Dr. Aura Syk MD Primary Care Provider Active Aura Sky [...] Dr. Aura Sky MD Primary Care Provider, [facility] Provider Active Team Status: Inactive Member Role [...] section and content) DATE CREATED AUTHOR 06/03/2022 [facility] DATE CREATED AUTHOR AUTHOR'S ORGANIZ ATION 06/09/2025 [facility] FOR RECORDS PERTAINING TO PATIENTS WHO ARE [...] BE BASED ON THE PRIMARY CLINICAL RECORDS. [employer] provides no warranty or guarantee of the accuracy or completeness of information in this document.
[2025-07-04 08:37] LABS: Hematocrit 26.5 % (40-54); Hemoglobin 8.6 g/dL (13.0-16.5); Mean Corp Hgb Conc 32.5 g/dL (32-36); Mean Corpuscular Volume 86.3 fL (80-94); Mean Platelet Vol. 10.6 fl (6.2-12.0); Platelet Count 246 K/mm3 (150-450); RBC Distribution Width CV 14.4 % (11.6-14.6); RBC Distribution Width SD 45.6 fl (35.1-43.9); Red Blood Count 3.07 M/mm3 (4.6-6.2); White Blood Count 6.4 K/mm3 (4.4-11.0)
== END ==
LOC: OLS.WCC 05:00
PROVIDERS: PCP Family Medicine; Visit Provider Family Medicine
DX: I11.0 Hypertensive heart disease with heart failure (principal); I50.30 Unspecified diastolic (congestive) heart failure; E78.5 Hyperlipidemia, unspecified
CPT/HCPCS: 36415; 85027

== ENCOUNTER → 2025-07-26 04:00 | Outpatient (REF) | payer MEDICARE, MEDICAID, SELFPAY ==
[2025-07-26 08:55] LABS: Mucous, Urine 0 SEEN /hpf (<or=2+); Squamous Epithelial Cells - UA 0 SEEN /hpf (0-5)
[2025-07-26 10:10] LABS: Color, Urine Amber (Yellow); Glucose, Dipstick Normal (Normal); Ketone-Dipstick 5 mg/dl (Negative); Leukocyte Esterase-Dipstick 500 /ul (Negative); Nitrite-Dipstick Positive (Negative); Occult Blood-Urine 250 /ul (Negative); Protein-Dipstick 100 mg/dl (Negative); Specific Gravity, Urine 1.015 (1.002-1.030); Urine Bilirubin Dipstick 6 mg/dL (Negative)
[2025-07-26 10:27] LABS: Red Blood Cells-Urine 25-50 SEEN /hpf (0-5)
== END ==
LOC: OLS.WCC 04:00
PROVIDERS: PCP Family Medicine; Visit Provider Family Medicine
DX: N31.9 Neuromuscular dysfunction of bladder, unspecified (principal); Z79.899 Other long term (current) drug therapy
CPT/HCPCS: 81001; 87077; 87086; 87088; 87186

== ENCOUNTER → 2025-08-03 06:50 | Outpatient (REF) | payer MEDICARE, MEDICAID, SELFPAY ==
--- OUTSIDE RECORDS SUMMARY | 2025-08-03 08:00 | XMS RPT_ITS | CCD ---
Author Organization [facility] Informat ion Partnership [facility] Care Team Providers Care Engagement Director Name Role Phone Aura Sky MD Primary Care Provider [phone] JORDAN JORDAN JR Attending Unavaila ble AURA [...] Unavailable Sky, Aura K Primary Care Unavailable Syk OLS, Aura K Attending Unavailable Sky OLS, [...] sources) hydroCHLOROthiazide Drug Allergy 08-03-20 20 Unknown [facility] (20 sources) Triamterene Drug Allergy 08-03-20 20 Unknown [facility] (3 sources) hydroCHLOROthiazide / Triamterene; Translations: [TRIAMTERENE-HYDROCHLO ROTHIAZID] Drug Allergy 04-17-20 16 Other: See Comments [facility] Work Phone: (1 source) hydroCHLOROthiazide Drug Allergy 04-10-20 [facility] Repository (1 source) Triamterene Drug Allergy 04-10-20 [facility] Repository Medications Current Medications Medication Drug Class(es) [...] 04, 2020 12:13am take 1 capsule by [facility] every eight hours as needed hydrOXYzine pamoate [...] DM Start: 04-10-2022 inject 20 [IU] by benajmin bcutaneous injection at bedtime Insulin Glargine 100 [...] by mouth twice daily. polyethylene glycol 3350 [id number] mg powder for oral solution (20 sources) [...] 12:00am Start: 11-08-2018 [facility] Quetiapine (Seroquel) 300 MG tablet Active 300 MG PO AT BEDTIME November 08, 2018 8:03pm Start: 11-08-2018 take 100 mg by mouth once marlena y Quetiapine Active 100 MG PO DAILY November 08, 2018 8:03pm Start: 07-31-2016 take 2 tablets by mo [facility] at bedtime SEROQUEL XR 50 mg [...] tablet by marii th once daily. 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] Onset: 06-08-2025 Episodic Other [...] )on 06-04-2025 BUN/CRE 11.0 RATIO Normal 10-20 [facility] Comment on above: Order Comment: 126.1 Performed By: #### L 100.0500 #### [facility] Laboratory [address] [place], [address] Calcium [Mass/Vol] 8.0 mg/dL Normal 7.6-11.0 [facility] Comment on above: Order Comment: 126.1 Performed By: #### L 100.0500 #### [facility] [address] [place], [address] Chloride [Moles/Vol] 103 mmol/L Normal 98-108 [facility] Comment on above: Order Comment: 126.1 Performed By: #### L 100.0500 #### [facility] [address] [place], [address] CO2 [Moles/Vol] 26.2 mmol/L Normal 21.0-32.0 [facility] Comment on above: Order Comment: 126.1 Performed By: #### L 100.0500 #### [facility] [address] [place], [address] Creatinine [Mass/Vol] 1.84 mg/dL High 0.70-1.20 [facility] Comment on above: Order Comment: 126.1 Performed By: #### L 100.0500 #### [facility] [address] [place], [address] GAP 9 Normal 5-15 [facility] Comment on above: Order Comment: 126.1 Performed By: #### L 100.0500 #### [facility] [address] [place], [address] GFR/1.73 sq M.predicted among non-blacks MDRD (S/P/Bld) [Vol rate/Area] 37 mL/min/{1.73_m2} Low >60 [facility] Comment on above: Order Comment: 126.1 Result Comment: mL/m in/1.73m2 CKD-EPI Creatinine Equation (2020) Performed By: #### L 100.0500 #### [facility] [address] [place], [address] Glucose [Mass/Vol] 93 mg/dL Normal 70-99 [facility] Comment on above: Order Comment: 126.1 Performed By: #### L 100.0500 #### [facility] [address] [place], [address] Potassium [Moles/Vol] 4.0 mmol/L Normal 3.3-5.1 [facility] Comment on above: Order Comment: 126.1 Performed By: #### L 100.0500 #### [facility] [address] [place], [address] Sodium [Moles/Vol] 138 mmol/L Normal 133-145 [facility] Comment on above: Order Comment: 126.1 Performed By: #### L 100.0500 #### [facility] [address] [place], [address] Urea nitrogen [Mass/Vol] 20 mg/dL High 4-19 [facility] Comment on above: Order Comment: 126.1 Performed By: #### L 100.0500 #### [facility] [address] [place], [address] CBC-Complete Blood Cnt No Di ffon 06-04-2025 Erythrocyte distribution width (RBC) [Ratio] 14.6 % Normal 11.6-14.6 [facility] Comment on above: Order Comment: 126.1 Performed By: #### L 100.0500 #### [facility] [address] [place], [address] Hematocrit (Bld) [Volume fraction] 27.9 % Low 40-54 [facility] Comment on above: Order Comment: 126.1 Performed By: #### L 100.0500 #### [facility] [address] [place], [address] Hemoglobin (Bld) [Mass/Vol] 9.1 g/dL Low 13.0-16.5 [facility] Comment on above: Order Comment: 126.1 Performed By: #### L 100.0500 #### [facility] [address] [place], [address] MCH (RBC) [Entitic mass] 28.9 pg Normal 27.0-32.0 [facility] Comment on above: Order Comment: 126.1 Performed By: #### L 100.0500 #### [facility] [address] [place], [address] MCHC (RBC) [Mass/Vol] 32.6 g/dL Normal 32-36 [facility] Comment on above: Order Comment: 126.1 Performed By: #### L 100.0500 #### [facility] [address] [place], [address] MCV (RBC) [Entitic vol] 88.6 fL Normal 80-94 [facility] Comment on above: Order Comment: 126.1 Performed By: #### L 100.0500 #### [facility] [address] [place], [address] Platelet mean volume (Bld) [Entitic vol] 10.3 fL Normal 6.2-12.0 [facility] Comment on above: Order Comment: 126.1 Performed By: #### L 100.0500 #### [facility] [address] [place], [address] Platelets (Bld) [#/Vol] 353 10*3/uL Normal 150-450 [facility] Comment on above: Order Comment: 126.1 Performed By: #### L 100.0500 #### [facility] [address] [place], [address] RBC (Bld) [#/Vol] 3.15 10*6/uL Low 4.6-6.2 [facility] Comment on above: Order Comment: 126.1 Performed By: #### L 100.0500 #### [facility] [address] [place], [address] RDW SD 47.6 fl High 35.1-43.9 [facility] Comment on above: Order Comment: 126.1 Performed By: #### L 100.0500 #### [facility] [address] [place], [address] WBC (Bld) [#/Vol] 5.3 10*3/uL Normal 4.4-11.0 [facility] Comment on above: Order Comment: 126.1 Performed By: #### L 100.0500 #### [facility] [address] [place], [address] Hemoglobin A1con 06-04-2025 HbA1c (Bld) [Mass fraction] 5.8 % High <=5.6 [facility] Comment on above: Order Comment: 126.1 Result Comment: Norm al < 5.7 % Prediabetic 5.7 - 6.4 % Diabetic >or= 6.5 % Please note range changes. Performed By: #### L 100.0500 #### [facility] [address] [place], [address] Lipid Profileon 06-04-2025 CHOL:HDL 3.26 Normal [facility] Comment on above: Order Comment: 126-1 Performed By: #### L 501.9985, L500.4100, L100.0500, L501.9520, L500.2500, L503.0105 #### [facility] [address] [place], [address] Cholesterol [Mass/Vol] 111 mg/dL Normal <=[address] [facility] Comment on above: Order Comment: 126-1 Result Comment: Chol esterol level, Desirable <200 mg/dL Borderline high cholesterol 200-239 mg/dL High cholesterol >=240 mg/dL Recommendations of the NCEP Adult Treatment Panel for the following risk-cutoff thresholds for the [place] population. Performed By: #### L 501.9985, L500.4100, L100.0500, L501.9520, L500.2500, L503.0105 #### [facility] [address] [place], [address] Cholesterol in HDL [Mass/Vol] 34 mg/dL Low [facility] Comment on above: Order Comment: 126-1 Result Comment: Ana Paula onal Cholesterol Education Program (NCEP) guidelines: <40 mg/dL: Low HDL-cholesterol (major risk factor for CHD) >= 60 mg/dL: High HDL-cholesterol (negative risk factor for CHD) HDL-cholesterol is affected by a number of factors, e.g. smoking, exercise, hormones, sex and age. Performed By: #### L 501.9985, L500.4100, L100.0500, L501.9520, L500.2500, L503.0105 #### [facility] [address] [place], [address] Cholesterol in LDL [Mass/Vol] 62 mg/dL Normal [facility] Comment on above: Order Comment: 126-1 Result Comment: Bord nflbmg=589-731 mg/dL Higher Klje=717 mg/dL or greater Armendariz Equation 2020 for LDL-C Performed By: #### L 501.9985, L500.4100, L100.0500, L501.9520, L500.2500, L503.0105 #### [facility] [address] [place], [address] Cholesterol in VLDL [Mass/Vol] 14 mg/dL Normal 5-40 [facility] Comment on above: Order Comment: 126-1 Performed By: #### L 501.9985, L500.4100, L100.0500, L501.9520, L500.2500, L503.0105 #### [facility] [address] [place], [address] Triglyceride [Mass/Vol] 70 mg/dL Normal [facility] Comment on above: Order Comment: 126-1 Result Comment: The drugs N-Acetylcysteine and Metamizole may falsely depress this assay. Normal range: <150 mg/dL Borderline High: 150-199 mg/dL High: 200-499 mg/dL Very High: >500 mg/dL Performed By: #### L 501.9985, L500.4100, L100.0500, L501.9520, L500.2500, L503.0105 #### [facility] [address] [place], [address] Thyroid Stim Hormone (TSH)on 06-04-2025 TSH 1.790 uIU/mL Normal 0.300-4.200 [facility] Comment on above: Order Comment: 126-1 Performed By: #### L 501.9985, L500.4100, L100.0500, L501.9520, L500.2500, L503.0105 #### [facility] [address] [place], [address] Vitamin B12on 06-04-2025 Cobalamin (Vitamin B12) [Mass/Vol] 511 pg/mL Normal 180-914 [facility] Comment on above: Order Comment: 126-1 Performed By: #### L 501.9985, L500.4100, L100.0500, L501.9520, L500.2500, L503.0105 #### [facility] [address] [place] [place], [address] CBC-Complete Blood Cnt No Di ffon 05-04-2025 Erythrocyte distribution width (RBC) [Ratio] 16.5 % High 11.6-14.6 [facility] Comment on above: Order Comment: 126.1 Performed By: #### M 100.7900 #### [facility] [address] [place], [address] Hematocrit (Bld) [Volume fraction] 25.8 % Low 40-54 [facility] Comment on above: Order Comment: 126.1 Performed By: #### M 100.7900 #### [facility] [address] [place], [address] Hemoglobin (Bld) [Mass/Vol] 8.4 g/dL Low 13.0-16.5 [facility] Comment on above: Order Comment: 126.1 Performed By: #### M 100.7900 #### [facility] [address] [place], [address] MCH (RBC) [Entitic mass] 29.1 pg Normal 27.0-32.0 [facility] Comment on above: Order Comment: 126.1 Performed By: #### M 100.7900 #### [facility] [address] [place], [address] MCHC (RBC) [Mass/Vol] 32.6 g/dL Normal 32-36 [facility] Comment on above: Order Comment: 126.1 Performed By: #### M 100.7900 #### [facility] [address] [place], [address] MCV (RBC) [Entitic vol] 89.3 fL Normal 80-94 [facility] Comment on above: Order Comment: 126.1 Performed By: #### M 100.7900 #### [facility] [address] [place], [address] Platelet mean volume (Bld) [Entitic vol] 10.6 fL Normal 6.2-12.0 [facility] Comment on above: Order Comment: 126.1 Performed By: #### M 100.7900 #### [facility] [address] [place], [address] Platelets (Bld) [#/Vol] 277 10*3/uL Normal 150-450 [facility] Comment on above: Order Comment: 126.1 Performed By: #### M 100.7900 #### [facility] [address] [place], [address] RBC (Bld) [#/Vol] 2.89 10*6/uL Low 4.6-6.2 [facility] Comment on above: Order Comment: 126.1 Performed By: #### M 100.7900 #### [facility] [address] [place], [address] RDW SD 53.7 fl High 35.1-43.9 [facility] Comment on above: Order Comment: 126.1 Performed By: #### M 100.7900 #### [facility] [address] [place], [address] WBC (Bld) [#/Vol] 5.2 10*3/uL Normal 4.4-11.0 [facility] Comment on above: Order Comment: 126.1 Performed By: #### M 100.2100 #### [facility] [address] [place], [place], [address] Ferritinon 05-04-2025 Ferritin [Mass/Vol] 30 ng/mL Low 37-417 [facility] Comment on above: Order Comment: 126.1 Performed By: #### M 100.7900 #### [facility] [address] [place], [address] Iron+Iron Binding Capacityon 05-04-2025 TIBC 168 ug/dL Low 250-450 [facility] Comment on above: Order Comment: 126.1 Performed By: #### M 100.7985 #### [facility] [address] [place], [address] Urine Cultureon 04-09-2025 [facility] Pending Escherichia coli [place] Count >100,000 Enterococcus faecalis Enterococcus faecalis Escherichia [...] Synergy Susc Islt SYN-S S levoFLOXacin Islt SHRIA 0.5 S Linezolid Islt SHIRA 2 S Nitrofurantoin Islt SHIRA <=16 S Streptomycin High Pot Susc Islt SYN-S S Tetracycline Islt SHIRA >=16 R Vancomycin Islt SHIRA 2 S Normal [facility] Comment on above: Performed By: #### M 100.8073 #### [facility] [address] [place], [address] CBC-Complete Blood Cnt No Di ffon 04-03-2025 Erythrocyte distribution width (RBC) [Ratio] 16.4 % High 11.6-14.6 [facility] Comment on above: Order Comment: 126.1 Performed By: #### M 100.7900 #### [facility] [address] [place], [address] Hematocrit (Bld) [Volume fraction] 25.7 % Low 40-54 [facility] Comment on above: Order Comment: 126.1 Performed By: #### M 100.7900 #### [facility] [address] [place], [address] Hemoglobin (Bld) [Mass/Vol] 8.2 g/dL Low 13.0-16.5 [facility] Comment on above: Order Comment: 126.1 Performed By: #### M 100.7900 #### [facility] [address] [place], [address] MCH (RBC) [Entitic mass] 27.9 pg Normal 27.0-32.0 [facility] Comment on above: Order Comment: 126.1 Performed By: #### M 100.7900 #### [facility] [address] [place], [address] MCHC (RBC) [Mass/Vol] 31.9 g/dL Low 32-36 [facility] Comment on above: Order Comment: 126.1 Performed By: #### M 100.7900 #### [facility] [address] [place], [address] MCV (RBC) [Entitic vol] 87.4 fL Normal 80-94 [facility] Comment on above: Order Comment: 126.1 Performed By: #### M 100.7900 #### [facility] [address] [place], [address] Platelet mean volume (Bld) [Entitic vol] 10.4 fL Normal 6.2-12.0 [facility] Comment on above: Order Comment: 126.1 Performed By: #### M 100.7900 #### [facility] [address] [place], [address] Platelets (Bld) [#/Vol] 276 10*3/uL Normal 150-450 [facility] Comment on above: Order Comment: 126.1 Performed By: #### M 100.7900 #### [facility] [address] [place], [address] RBC (Bld) [#/Vol] 2.94 10*6/uL Low 4.6-6.2 [facility] Comment on above: Order Comment: 126.1 Performed By: #### M 100.7900 #### [facility] [address] [place], [address] RDW SD 52.5 fl High 35.1-43.9 [facility] Comment on above: Order Comment: 126.1 Performed By: #### M 100.7900 #### [facility] [address] [place], [address] WBC (Bld) [#/Vol] 5.9 10*3/uL Normal 4.4-11.0 [facility] Comment on above: Order Comment: 126.1 Performed By: #### M 100.7900 #### [facility] [address] [place], [address] Basic Metabolic Profile (BMP )on 03-05-2025 BUN/CRE 9.9 RATIO Low 10-20 [facility] Comment on above: Order Comment: 126 Performed By: #### M 100.7900 #### [facility] [address] [place], [address] Calcium [Mass/Vol] 8.3 mg/dL Normal 7.6-11.0 [facility] Comment on above: Order Comment: 126 Performed By: #### M 100.7900 #### [facility] [address] [place], [address] Chloride [Moles/Vol] 102 mmol/L Normal 98-108 [facility] Comment on above: Order Comment: 126 Performed By: #### M 100.7900 #### [facility] [address] [place], [address] CO2 [Moles/Vol] 27.0 mmol/L Normal 21.0-32.0 [facility] Comment on above: Order Comment: 126 Performed By: #### M 100.7900 #### [facility] [address] [place], [address] Creatinine [Mass/Vol] 1.89 mg/dL High 0.70-1.20 [facility] Comment on above: Order Comment: 126 Performed By: #### M 100.7900 #### [facility] [address] [place], [address] GAP 9 Normal 5-15 [facility] Comment on above: Order Comment: 126 Performed By: #### M 100.7900 #### [facility] [address] [place], [address] GFR/1.73 sq M.predicted among non-blacks MDRD (S/P/Bld) [Vol rate/Area] 36 mL/min/{1.73_m2} Low >60 [facility] Comment on above: Order Comment: 126 Result Comment: mL/m in/1.73m2 CKD-EPI Creatinine Equation (2020) Performed By: #### M 100.7900 #### [facility] [address] [place], [address] Glucose [Mass/Vol] 100 mg/dL High 70-99 [facility] Comment on above: Order Comment: 126 Performed By: #### M 100.7900 #### [facility] [address] [place], [address] Potassium [Moles/Vol] 4.1 mmol/L Normal 3.3-5.1 [facility] Comment on above: Order Comment: 126 Performed By: #### M 100.7900 #### [facility] [address] [place], [address] Sodium [Moles/Vol] 137 mmol/L Normal 133-145 [facility] Comment on above: Order Comment: 126 Performed By: #### M 100.7900 #### [facility] [address] [place], [address] Urea nitrogen [Mass/Vol] 19 mg/dL Normal 4-19 [facility] Comment on above: Order Comment: 126 Performed By: #### M 100.7900 #### [facility] [address] [place], [address] CBC W/Diff, Automatedon 07-2 Absolute Lymph 2.04 X10 3/uL Normal 0.83-4.51 [facility] Comment on above: Order Comment: 126 Performed By: #### L 503.0106, L100.0100, L501.9520, L500.4100, L500.2500, L501.9985 #### [facility] [address] [place], [address] Absolute Neut 3.4 X10 3/uL Normal 2.0-7.7 [facility] Comment on above: Order Comment: 126 Performed By: #### L 503.0106, L100.0100, L501.9520, L500.4100, L500.2500, L501.9985 #### [facility] [address] [place], [address] Basophils/100 WBC (Bld) 0.2 % Normal 0-1 [facility] Comment on above: Order Comment: 126 Performed By: #### L 503.0106, L100.0100, L501.9520, L500.4100, L500.2500, L501.9985 #### [facility] [address] [place], [address] Eosinophils/100 WBC (Bld) 1.0 % Normal 0-5 [facility] Comment on above: Order Comment: 126 Performed By: #### L 503.0106, L100.0100, L501.9520, L500.4100, L500.2500, L501.9985 #### [facility] [address] [place], [address] Erythrocyte distribution width (RBC) [Ratio] 15.7 % High 11.6-14.6 [facility] Comment on above: Order Comment: 126 Performed By: #### L 503.0106, L100.0100, L501.9520, L500.4100, L500.2500, L501.9985 #### [facility] [address] [place], [address] Hematocrit (Bld) [Volume fraction] 29.1 % Low 40-54 [facility] Comment on above: Order Comment: 126 Performed By: #### L 503.0106, L100.0100, L501.9520, L500.4100, L500.2500, L501.9985 #### [facility] [address] [place], [address] Hemoglobin (Bld) [Mass/Vol] 9.4 g/dL Low 13.0-16.5 [facility] Comment on above: Order Comment: 126 Performed By: #### L 503.0106, L100.0100, L501.9520, L500.4100, L500.2500, L501.9985 #### [facility] [address] [place], [address] IG% 0.300 Normal 0.0-0.9 [facility] Comment on above: Order Comment: 126 Result Comment: IG% - Immature Granulocytes (promyelocytes, myelocytes and metamyelocytes) > 1% indicates that a LEFT SHIFT is Present. Performed By: #### L 503.0106, L100.0100, L501.9520, L500.4100, L500.2500, L501.9985 #### [facility] [address] [place], [address] Lymphocytes/100 WBC (Bld) 33.2 % Normal 19-41 [facility] Comment on above: Order Comment: 126 Performed By: #### L 503.0106, L100.0100, L501.9520, L500.4100, L500.2500, L501.9985 #### [facility] [address] [place], [address] MCH (RBC) [Entitic mass] 27.4 pg Normal 27.0-32.0 [facility] Comment on above: Order Comment: 126 Performed By: #### L 503.0106, L100.0100, L501.9520, L500.4100, L500.2500, L501.9985 #### [facility] [address] [place], [address] MCHC (RBC) [Mass/Vol] 32.3 g/dL Normal 32-36 [facility] Comment on above: Order Comment: 126 Performed By: #### L 503.0106, L100.0100, L501.9520, L500.4100, L500.2500, L501.9985 #### [facility] [address] [place], [address] MCV (RBC) [Entitic vol] 84.8 fL Normal 80-94 [facility] Comment on above: Order Comment: 126 Performed By: #### L 503.0106, L100.0100, L501.9520, L500.4100, L500.2500, L501.9985 #### [facility] [address] [place], [address] Monocytes/100 WBC (Bld) 10.4 % High 0-10 [facility] Comment on above: Order Comment: 126 Performed By: #### L 503.0106, L100.0100, L501.9520, L500.4100, L500.2500, L501.9985 #### [facility] [address] [place], [address] Neutrophils/100 WBC (Bld) 54.9 % Normal 47-70 [facility] Comment on above: Order Comment: 126 Performed By: #### L 503.0106, L100.0100, L501.9520, L500.4100, L500.2500, L501.9985 #### [facility] [address] [place], [address] Nucleated RBC (Bld) [#/Vol] 0 10*3/uL Normal 0-5 [facility] Comment on above: Order Comment: 126 Performed By: #### L 503.0106, L100.0100, L501.9520, L500.4100, L500.2500, L501.9985 #### [facility] [address] [place], [address] Platelet mean volume (Bld) [Entitic vol] 10.3 fL Normal 6.2-12.0 [facility] Comment on above: Order Comment: 126 Performed By: #### L 503.0106, L100.0100, L501.9520, L500.4100, L500.2500, L501.9985 #### [facility] [address] [place], [address] Platelets (Bld) [#/Vol] 255 10*3/uL Normal 150-450 [facility] Comment on above: Order Comment: 126 Performed By: #### L 503.0106, L100.0100, L501.9520, L500.4100, L500.2500, L501.9985 #### [facility] [address] [place], [address] RBC (Bld) [#/Vol] 3.43 10*6/uL Low 4.6-6.2 [facility] Comment on above: Order Comment: 126 Performed By: #### L 503.0106, L100.0100, L501.9520, L500.4100, L500.2500, L501.9985 #### [facility] [address] [place], [address] RDW SD 48.3 fl High 35.1-43.9 [facility] Comment on above: Order Comment: 126 Performed By: #### L 503.0106, L100.0100, L501.9520, L500.4100, L500.2500, L501.9985 #### [facility] [address] [place], [address] WBC (Bld) [#/Vol] 6.1 10*3/uL Normal 4.4-11.0 [facility] Comment on above: Order Comment: 126 Performed By: #### L 503.0106, L100.0100, L501.9520, L500.4100, L500.2500, L501.9985 #### [facility] [address] [place], [address] Hemoglobin A1con 03-05-2025 HbA1c (Bld) [Mass fraction] 6.6 % High <=5.6 [facility] Comment on above: Order Comment: 126 Result Comment: Norm al < 5.7 % Prediabetic 5.7 - 6.4 % Diabetic >or= 6.5 % Please note range changes. Performed By: #### M 100.7900 #### [facility] [address] [place], [address] Lipid Profileon 03-05-2025 CHOL:HDL 2.78 Normal [facility] Comment on above: Order Comment: 126 Performed By: #### M 100.7900 #### [facility] [address] [place], [address] Cholesterol [Mass/Vol] 113 mg/dL Normal <=[address] [facility] Comment on above: Order Comment: 126 Result Comment: Chol esterol level, Desirable <200 mg/dL Borderline high cholesterol 200-239 mg/dL High cholesterol >=240 mg/dL Recommendations of the NCEP Adult Treatment Panel for the following risk-cutoff thresholds for the [place] population. Performed By: #### M 100.7900 #### [facility] [address] [place], [address] Cholesterol in HDL [Mass/Vol] 41 mg/dL Normal [facility] Comment on above: Order Comment: 126 Result Comment: Ana Paula onal Cholesterol Education Program (NCEP) guidelines: <40 mg/dL: Low HDL-cholesterol (major risk factor for CHD) >= 60 mg/dL: High HDL-cholesterol (negative risk factor for CHD) HDL-cholesterol is affected by a number of factors, e.g. smoking, exercise, hormones, sex and age. Performed By: #### M 100.7900 #### [facility] [address] [place], [address] Cholesterol in LDL [Mass/Vol] 59 mg/dL Normal [facility] Comment on above: Order Comment: 126 Result Comment: Bord ktltug=782-951 mg/dL Higher Svfs=868 mg/dL or greater Friedwald Equation for LDL-C Performed By: #### M 100.7900 #### [facility] [address] [place], [address] Cholesterol in VLDL [Mass/Vol] 13 mg/dL Normal 5-40 [facility] Comment on above: Order Comment: 126 Performed By: #### M 100.7900 #### [facility] [address] [place], [address] Triglyceride [Mass/Vol] 67 mg/dL Normal [facility] Comment on above: Order Comment: 126 Result Comment: The drugs N-Acetylcysteine and Metamizole may falsely depress this assay. Normal range: <150 mg/dL Borderline High: 150-199 mg/dL High: 200-499 mg/dL Very High: >500 mg/dL Performed By: #### M 100.7900 #### [facility] [address] [place], [address] Thyroid Stim Hormone (TSH)on 03-05-2025 TSH 1.520 uIU/mL Normal 0.300-4.200 [facility] Comment on above: Order Comment: 126 Performed By: #### M 100.7900 #### [facility] [address] [place], [address] Vitamin B12on 03-05-2025 Cobalamin (Vitamin B12) [Mass/Vol] 474 pg/mL Normal 180-914 [facility] Comment on above: Order Comment: 126 Performed By: #### M 100.7900 #### [facility] [address] [place], [address] CBC-Complete Blood Cnt No Di ffon 02-01-2025 Erythrocyte distribution width (RBC) [Ratio] 15.5 % High 11.6-14.6 [facility] Comment on above: Performed By: #### L 100.0500 #### [facility] [address] [place], [address] Hematocrit (Bld) [Volume fraction] 30.1 % Low 40-54 [facility] Comment on above: Performed By: #### L 100.0500 #### [facility] [address] [place], [address] Hemoglobin (Bld) [Mass/Vol] 9.5 g/dL Low 13.0-16.5 [facility] Comment on above: Performed By: #### L 100.0500 #### [facility] [address] [place], [address] MCH (RBC) [Entitic mass] 27.4 pg Normal 27.0-32.0 [facility] Comment on above: Performed By: #### L 100.0500 #### [facility] [address] [place], [address] MCHC (RBC) [Mass/Vol] 31.6 g/dL Low 32-36 [facility] Comment on above: Performed By: #### L 100.0500 #### [facility] [address] [place], [address] MCV (RBC) [Entitic vol] 86.7 fL Normal 80-94 [facility] Comment on above: Performed By: #### L 100.0500 #### [facility] [address] [place], [address] Platelet mean volume (Bld) [Entitic vol] 10.1 fL Normal 6.2-12.0 [facility] Comment on above: Performed By: #### L 100.0500 #### [facility] [address] [place], [address] Platelets (Bld) [#/Vol] 308 10*3/uL Normal 150-450 [facility] Comment on above: Performed By: #### L 100.0500 #### [facility] [address] [place], [address] RBC (Bld) [#/Vol] 3.47 10*6/uL Low 4.6-6.2 [facility] Comment on above: Performed By: #### L 100.0500 #### [facility] [address] [place], [address] RDW SD 49.1 fl High 35.1-43.9 [facility] Comment on above: Performed By: #### L 100.0500 #### [facility] [address] [place], [address] WBC (Bld) [#/Vol] 6.3 10*3/uL Normal 4.4-11.0 [facility] Comment on above: Performed By: #### L 100.0700 #### [facility] [address] [place], [address] Erythrocyte distribution wid th ratioOrdered By: Aura Sky on 02-01-2025 Erythrocyte distribution width (RBC) [Ratio] 15.5 % High 11.6-14.6 [facility] Erythrocyte distribution wid th standard deviationOrdered By: Aura Sky on 02-01-2025 Erythrocyte distribution width (RBC) [Ratio] 49.1 fl High 35.1-43.9 [facility] Hematocrit Auto (Bld) [Volum e fraction]Ordered By: Aura Sky on 02-01-2025 Hematocrit (Bld) [Volume fraction] 30.1 % Low 40-54 [facility] Hemoglobin measurementOrdere d By: Aura Sky on 02-01-2025 Hemoglobin (Bld) [Mass/Vol] 9.5 g/dL Low 13.0-16.5 [facility] MCV (mean corpuscular volume ) determinationOrdered By: Aura Sky on 02-01-2025 MCV (RBC) [Entitic vol] 86.7 fL 80-94 [facility] Mean corpuscular hemoglobin (MCH) determinationOrdered By: Aura Sky on 02-01-2025 MCH (RBC) [Entitic mass] 27.4 pg 27.0-32.0 [facility] Mean corpuscular hemoglobin concentration (MCHC) determinationOrdered By: Aura Sky on 02-01-2025 MCHC (RBC) [Mass/Vol] 31.6 g/dL Low 32-36 [facility] Mean platelet volume determi nationOrdered By: Aura Sky on 02-01-2025 Platelet mean volume (Bld) [Entitic vol] 10.1 fL 6.2-12.0 [facility] Platelet countOrdered By: Juanita Sky on 02-01-2025 Platelets (Bld) [#/Vol] 308 10*3/uL 150-450 [facility] RBC Auto (Bld) [#/Vol]Ordere d By: Aura Sky on 02-01-2025 RBC (Bld) [#/Vol] 3.47 10*6/uL Low 4.6-6.2 [facility] White blood cell (WBC) count Ordered By: Aura Sky on 02-01-2025 WBC (Bld) [#/Vol] 6.3 10*3/uL 4.4-11.0 [facility] CBC-Complete Blood Cnt No Di ffon 01-02-2025 Erythrocyte distribution width (RBC) [Ratio] 15.9 % High 11.6-14.6 [facility] Comment on above: Order Comment: 126.1 Performed By: #### L 100.0500 #### [facility] [address] [place], [address] Hematocrit (Bld) [Volume fraction] 30.0 % Low 40-54 [facility] Comment on above: Order Comment: 126.1 Performed By: #### L 100.0500 #### [facility] [address] [place], [address] Hemoglobin (Bld) [Mass/Vol] 9.4 g/dL Low 13.0-16.5 [facility] Comment on above: Order Comment: 126.1 Performed By: #### L 100.0500 #### [facility] [address] [place], [address] MCH (RBC) [Entitic mass] 27.1 pg Normal 27.0-32.0 [facility] Comment on above: Order Comment: 126.1 Performed By: #### L 100.0500 #### [facility] [address] [place], [address] MCHC (RBC) [Mass/Vol] 31.3 g/dL Low 32-36 [facility] Comment on above: Order Comment: 126.1 Performed By: #### L 100.0500 #### [facility] [address] [place], [address] MCV (RBC) [Entitic vol] 86.5 fL Normal 80-94 [facility] Comment on above: Order Comment: 126.1 Performed By: #### L 100.0500 #### [facility] [address] [place], [address] Platelet mean volume (Bld) [Entitic vol] 10.5 fL Normal 6.2-12.0 [facility] Comment on above: Order Comment: 126.1 Performed By: #### L 100.0500 #### [facility] [address] [place], [address] Platelets (Bld) [#/Vol] 376 10*3/uL Normal 150-450 [facility] Comment on above: Order Comment: 126.1 Performed By: #### L 100.0500 #### [facility] [address] [place], [address] RBC (Bld) [#/Vol] 3.47 10*6/uL Low 4.6-6.2 [facility] Comment on above: Order Comment: 126.1 Performed By: #### L 100.0500 #### [facility] [address] [place], [address] RDW SD 50.4 fl High 35.1-43.9 [facility] Comment on above: Order Comment: 126.1 Performed By: #### L 100.0500 #### [facility] [address] [place], [address] WBC (Bld) [#/Vol] 7.2 10*3/uL Normal 4.4-11.0 [facility] Comment on above: Order Comment: 126.1 Performed By: #### L 100.0500 #### [facility] [address] [place], [address] Erythrocyte distribution wid th ratioOrdered By: Aura Sky on 01-02-2025 Erythrocyte distribution width (RBC) [Ratio] 15.9 % High 11.6-14.6 [facility] Erythrocyte distribution wid th standard deviationOrdered By: Aura Sky on 01-02-2025 Erythrocyte distribution width (RBC) [Ratio] 50.4 fl High 35.1-43.9 [facility] Hematocrit Auto (Bld) [Volum e fraction]Ordered By: Aura Sky on 01-02-2025 Hematocrit (Bld) [Volume fraction] 30.0 % Low 40-54 [facility] Hemoglobin measurementOrdere d By: Aura Sky on 01-02-2025 Hemoglobin (Bld) [Mass/Vol] 9.4 g/dL Low 13.0-16.5 [facility] MCV (mean corpuscular volume ) determinationOrdered By: Aura Sky on 01-02-2025 MCV (RBC) [Entitic vol] 86.5 fL 80-94 [facility] Mean corpuscular hemoglobin (MCH) determinationOrdered By: Aura Sky on 01-02-2025 MCH (RBC) [Entitic mass] 27.1 pg 27.0-32.0 [facility] Mean corpuscular hemoglobin concentration (MCHC) determinationOrdered By: Aura Sky on 01-02-2025 MCHC (RBC) [Mass/Vol] 31.3 g/dL Low 32-36 [facility] Mean platelet volume determi nationOrdered By: Aura Sky on 01-02-2025 Platelet mean volume (Bld) [Entitic vol] 10.5 fL 6.2-12.0 [facility] Platelet countOrdered By: Juanita Sky on 01-02-2025 Platelets (Bld) [#/Vol] 376 10*3/uL 150-450 [facility] RBC Auto (Bld) [#/Vol]Ordere d By: Aura Sky on 01-02-2025 RBC (Bld) [#/Vol] 3.47 10*6/uL Low 4.6-6.2 [facility] White blood cell (WBC) count Ordered By: Aura Sky on 01-02-2025 WBC (Bld) [#/Vol] 7.2 10*3/uL 4.4-11.0 [facility] Stool Occult Blood iFOBon STOB Negative Normal [facility] Comment on above: Performed By: #### M 100.7900 #### [facility] [address] [place], [address] Stool gastrointestinal hemog lobin detection by immunologic methodOrdered By: Aura Sky on 12-08-2024 Lower GI hemoglobin IA Ql (Stl) [facility] Anion gap in Serum or Plasma Ordered By: Aura Sky on 11-30-2024 Anion gap [Moles/Vol] 7 mmol/L 5-15 [facility] BUN/creatinine ratioOrdered By: Aura Sky on 11-30-2024 Urea nitrogen/Creatinine [Mass ratio] 9.2 mg/mg Low 10-20 [facility] Basic Metabolic Profile (BMP )on 11-30-2024 BUN/CRE 9.2 RATIO Low - [facility] Comment on above: Order Comment: 126.1 Performed By: #### L 100.0500 #### [facility] [address] [place], [address] Calcium [Mass/Vol] 7.7 mg/dL Normal 7.6-11.0 [facility] Comment on above: Order Comment: 126.1 Performed By: #### L 100.0500 #### [facility] [address] [place], [address] Chloride [Moles/Vol] 103 mmol/L Normal 98-108 [facility] Comment on above: Order Comment: 126.1 Performed By: #### L 100.0500 #### [facility] [address] [place], [address] CO2 [Moles/Vol] 27.2 mmol/L Normal 21.0-32.0 [facility] Comment on above: Order Comment: 126.1 Performed By: #### L 100.0500 #### [facility] [address] [place], [address] Creatinine [Mass/Vol] 1.55 mg/dL High 0.70-1.20 [facility] Comment on above: Order Comment: 126.1 Performed By: #### L 100.0500 #### [facility] [address] [place], [address] GAP 7 Normal 5-15 [facility] Comment on above: Order Comment: 126.1 Performed By: #### L 100.0500 #### [facility] [address] [place], [address] GFR/1.73 sq M.predicted among non-blacks MDRD (S/P/Bld) [Vol rate/Area] 45 mL/min/{1.73_m2} Low >60 [facility] Comment on above: Order Comment: 126.1 Result Comment: mL/m in/1.73m2 CKD-EPI Creatinine Equation (2020) Performed By: #### L 100.0500 #### [facility] [address] [place], [address] Glucose [Mass/Vol] 92 mg/dL Normal 70-99 [facility] Comment on above: Order Comment: 126.1 Performed By: #### L 100.0500 #### [facility] [address] [place], [address] Potassium [Moles/Vol] 4.3 mmol/L Normal 3.3-5.1 [facility] Comment on above: Order Comment: 126.1 Performed By: #### L 100.0500 #### [facility] [address] [place], [address] Sodium [Moles/Vol] 137 mmol/L Normal 133-145 [facility] Comment on above: Order Comment: 126.1 Performed By: #### L 100.0500 #### [facility] [address] [place], [address] Urea nitrogen [Mass/Vol] 14 mg/dL Normal 4-19 [facility] Comment on above: Order Comment: 126.1 Performed By: #### L 100.0500 #### [facility] [address] [place], [address] CBC-Complete Blood Cnt No Yelena guerrero 11-30-2024 Erythrocyte distribution width (RBC) [Ratio] 16.8 % High 11.6-14.6 [facility] Comment on above: Order Comment: 126.1 Performed By: #### L 100.0500 #### [facility] [address] [place], [address] Hematocrit (Bld) [Volume fraction] 28.4 % Low 40-54 [facility] Comment on above: Order Comment: 126.1 Performed By: #### L 100.0500 #### [facility] [address] [place], [address] Hemoglobin (Bld) [Mass/Vol] 8.8 g/dL Low 13.0-16.5 [facility] Comment on above: Order Comment: 126.1 Performed By: #### L 100.0500 #### [facility] [address] [place], [address] MCH (RBC) [Entitic mass] 27.2 pg Normal 27.0-32.0 [facility] Comment on above: Order Comment: 126.1 Performed By: #### L 100.0500 #### [facility] [address] [place], [address] MCHC (RBC) [Mass/Vol] 31.0 g/dL Low 32-36 [facility] Comment on above: Order Comment: 126.1 Performed By: #### L 100.0500 #### [facility] [address] [place], [address] MCV (RBC) [Entitic vol] 87.7 fL Normal 80-94 [facility] Comment on above: Order Comment: 126.1 Performed By: #### L 100.0500 #### [facility] [address] [place], [address] Platelet mean volume (Bld) [Entitic vol] 9.8 fL Normal 6.2-12.0 [facility] Comment on above: Order Comment: 126.1 Performed By: #### L 100.0500 #### [facility] [address] [place], [address] Platelets (Bld) [#/Vol] 382 10*3/uL Normal 150-450 [facility] Comment on above: Order Comment: 126.1 Performed By: #### L 100.0500 #### [facility] [address] [place], [address] RBC (Bld) [#/Vol] 3.24 10*6/uL Low 4.6-6.2 [facility] Comment on above: Order Comment: 126.1 Performed By: #### L 100.0500 #### [facility] [address] [place], [address] RDW SD 53.2 fl High 35.1-43.9 [facility] Comment on above: Order Comment: 126.1 Performed By: #### L 100.0500 #### [facility] [address] [place], [address] WBC (Bld) [#/Vol] 6.0 10*3/uL Normal 4.4-11.0 [facility] Comment on above: Order Comment: 126.1 Performed By: #### L 100.0500 #### [facility] [address] [place], [address] Carbon dioxide, total [Moles /volume] in Central venous bloodOrdered By: Aura Sky on 11-30-2024 CO2 [Moles/Vol] 27.2 mmol/L 21.0-32.0 [facility] Chloride assayOrdered By: Juanita Sky on 11-30-2024 Chloride [Moles/Vol] 103 mmol/L 98-108 [facility] Erythrocyte distribution wid th ratioOrdered By: Aura Sky on 11-30-2024 Erythrocyte distribution width (RBC) [Ratio] 16.8 % High 11.6-14.6 [facility] Erythrocyte distribution wid th standard deviationOrdered By: Aura Sky on 11-30-2024 Erythrocyte distribution width (RBC) [Ratio] 53.2 fl High 35.1-43.9 [facility] Ferritinon 11-30-2024 Ferritin [Mass/Vol] 26 ng/mL Low 37-417 [facility] Comment on above: Order Comment: 126.1 Performed By: #### L 100.0500 #### [facility] [address] [place], [address] Glomerular filtration rate ( GFR) estimation/1.73 sq m using serum, plasma, or whole bOrdered By: Aura Sky on 11-30-2024 GFR/1.73 sq M.predicted among non-blacks MDRD (S/P/Bld) [Vol rate/Area] 45 mL/min/{1.73_m2} Low >60 [facility] Comment on above: mL/min/1.73m2 CKD-EP I Creatinine Equation (2020) Hematocrit Auto (Bld) [Volum e fraction]Ordered By: Aura Sky on 11-30-2024 Hematocrit (Bld) [Volume fraction] 28.4 % Low 40-54 [facility] Hemoglobin measurementOrdere d By: Aura Sky on 11-30-2024 Hemoglobin (Bld) [Mass/Vol] 8.8 g/dL Low 13.0-16.5 [facility] MCV (mean corpuscular volume ) determinationOrdered By: Aura Sky on 11-30-2024 MCV (RBC) [Entitic vol] 87.7 fL 80-94 [facility] Mean corpuscular hemoglobin (MCH) determinationOrdered By: Aura Sky on 11-30-2024 MCH (RBC) [Entitic mass] 27.2 pg 27.0-32.0 [facility] Mean corpuscular hemoglobin concentration (MCHC) determinationOrdered By: Aura Sky on 11-30-2024 MCHC (RBC) [Mass/Vol] 31.0 g/dL Low 32-36 [facility] Mean platelet volume determi nationOrdered By: Aura Sky on 11-30-2024 Platelet mean volume (Bld) [Entitic vol] 9.8 fL 6.2-12.0 [facility] Platelet countOrdered By: Juanita Sky on 11-30-2024 Platelets (Bld) [#/Vol] 382 10*3/uL 150-450 [facility] Potassium measurement (mass/ volume)Ordered By: Aura Sky on 11-30-2024 Potassium (Unsp spec) [Mass/Vol] 4.3 mmol/L 3.3-5.1 [facility] RBC Auto (Bld) [#/Vol]Ordere d By: Aura Sky on 11-30-2024 RBC (Bld) [#/Vol] 3.24 10*6/uL Low 4.6-6.2 [facility] Serum creatinine measurement (mass/volume)Ordered By: Aura Sky on 11-30-2024 Creatinine [Mass/Vol] 1.55 mg/dL High 0.70-1.20 [facility] Serum glucose measurement (m ass/volume)Ordered By: Aura Sky on 11-30-2024 Glucose [Mass/Vol] 92 mg/dL 70-99 [facility] Serum or plasma calcium maria l urement (mass/volume)Ordered By: Aura Sky on 11-30-2024 Calcium [Mass/Vol] 7.7 mg/dL 7.6-11.0 [facility] Serum or plasma ferritin adryan surement (mass/volume)Ordered By: Aura Sky on 11-30-2024 Ferritin [Mass/Vol] 26 ng/mL Low 37-417 [facility] Serum or plasma urea nitroge n measurement (mass/volume)Ordered By: Aura Sky on 11-30-2024 Urea nitrogen [Mass/Vol] 14 mg/dL 4-19 [facility] Sodium levelOrdered By: Aura Sky on 11-30-2024 Sodium [Moles/Vol] 137 mmol/L 133-145 [facility] White blood cell (WBC) count Ordered By: Aura Sky on 11-30-2024 WBC (Bld) [#/Vol] 6.0 10*3/uL 4.4-11.0 [facility] CBC-Complete Blood Cnt No Di ffon 11-01-2024 Erythrocyte distribution width (RBC) [Ratio] 14.8 % High 11.6-14.6 [facility] Comment on above: Order Comment: 126.1 Performed By: #### L 100.0500 #### [facility] [address] [place], [address] Hematocrit (Bld) [Volume fraction] 27.8 % Low 40-54 [facility] Comment on above: Order Comment: 126.1 Performed By: #### L 100.0500 #### [facility] [address] [place], [address] Hemoglobin (Bld) [Mass/Vol] 8.7 g/dL Low 13.0-16.5 [facility] Comment on above: Order Comment: 126.1 Performed By: #### L 100.0500 #### [facility] [address] [place], [address] MCH (RBC) [Entitic mass] 26.6 pg Low 27.0-32.0 [facility] Comment on above: Order Comment: 126.1 Performed By: #### L 100.0500 #### [facility] [address] [place], [address] MCHC (RBC) [Mass/Vol] 31.3 g/dL Low 32-36 [facility] Comment on above: Order Comment: 126.1 Performed By: #### L 100.0500 #### [facility] [address] [place], [address] MCV (RBC) [Entitic vol] 85.0 fL Normal 80-94 [facility] Comment on above: Order Comment: 126.1 Performed By: #### L 100.0500 #### [facility] [address] [place], [address] Platelet mean volume (Bld) [Entitic vol] 10.3 fL Normal 6.2-12.0 [facility] Comment on above: Order Comment: 126.1 Performed By: #### L 100.0500 #### [facility] [address] [place], [address] Platelets (Bld) [#/Vol] 307 10*3/uL Normal 150-450 [facility] Comment on above: Order Comment: 126.1 Performed By: #### L 100.0500 #### [facility] [address] [place], [address] RBC (Bld) [#/Vol] 3.27 10*6/uL Low 4.6-6.2 [facility] Comment on above: Order Comment: 126.1 Performed By: #### L 100.0500 #### [facility] [address] [place], [address] RDW SD 45.7 fl High 35.1-43.9 [facility] Comment on above: Order Comment: 126.1 Performed By: #### L 100.0500 #### [facility] [address] [place], [address] WBC (Bld) [#/Vol] 5.8 10*3/uL Normal 4.4-11.0 [facility] Comment on above: Order Comment: 126.1 Performed By: #### L 100.0500 #### [facility] [address] [place], [address] Erythrocyte distribution wid th (RBC) [Ratio]Ordered By: Aura Sky on 11-01-2024 Erythrocyte distribution width (RBC) [Entitic vol] 45.7 fL High 35.1-43.9 [facility] Erythrocyte distribution wid th ratioOrdered By: Aura kSy on 11-01-2024 Erythrocyte distribution width (RBC) [Ratio] 14.8 % High 11.6-14.6 [facility] Erythrocyte distribution wid th standard deviationOrdered By: Aura Sky on 11-01-2024 Erythrocyte distribution width (RBC) [Ratio] 45.7 fl High 35.1-43.9 [facility] Hematocrit Auto (Bld) [Volum e fraction]Ordered By: Aura Sky on 11-01-2024 Hematocrit (Bld) [Volume fraction] 27.8 % Low 40-54 [facility] Hemoglobin measurementOrdere d By: Aura Sky on 11-01-2024 Hemoglobin (Bld) [Mass/Vol] 8.7 g/dL Low 13.0-16.5 [facility] MCV (mean corpuscular volume ) determinationOrdered By: Aura Sky on 11-01-2024 MCV (RBC) [Entitic vol] 85.0 fL 80-94 [facility] Mean corpuscular hemoglobin (MCH) determinationOrdered By: Aura Sky on 11-01-2024 MCH (RBC) [Entitic mass] 26.6 pg Low 27.0-32.0 [facility] Mean corpuscular hemoglobin concentration (MCHC) determinationOrdered By: Aura Sky on 11-01-2024 MCHC (RBC) [Mass/Vol] 31.3 g/dL Low 32-36 [facility] Mean platelet volume determi nationOrdered By: Aura Sky on 11-01-2024 Platelet mean volume (Bld) [Entitic vol] 10.3 fL 6.2-12.0 [facility] Platelet countOrdered By: Juanita Sky on 11-01-2024 Platelets (Bld) [#/Vol] 307 10*3/uL 150-450 [facility] RBC Auto (Bld) [#/Vol]Ordere d By: Aura Sky on 11-01-2024 RBC (Bld) [#/Vol] 3.27 10*6/uL Low 4.6-6.2 [facility] White blood cell (WBC) count Ordered By: Aura Sky on 11-01-2024 WBC (Bld) [#/Vol] 5.8 10*3/uL 4.4-11.0 [facility] CBC-Complete Blood Cnt No Di ffon 10-03-2024 Erythrocyte distribution width (RBC) [Ratio] 14.8 % High 11.6-14.6 [facility] Comment on above: Order Comment: 126.1 Performed By: #### L 100.0872 #### [facility] Laboratory [address] [place], [place] [address], [address] Hematocrit (Bld) [Volume fraction] 29.3 % Low 40-54 [facility] Comment on above: Order Comment: 126.1 Performed By: #### L 100.0500 #### [facility] [address] [place], [address] Hemoglobin (Bld) [Mass/Vol] 9.0 g/dL Low 13.0-16.5 [facility] Comment on above: Order Comment: 126.1 Performed By: #### L 100.0500 #### [facility] [address] [place], [address] MCH (RBC) [Entitic mass] 27.1 pg Normal 27.0-32.0 [facility] Comment on above: Order Comment: 126.1 Performed By: #### L 100.0500 #### [facility] [address] [place], [address] MCHC (RBC) [Mass/Vol] 30.7 g/dL Low 32-36 [facility] Comment on above: Order Comment: 126.1 Performed By: #### L 100.0500 #### [facility] [address] [place], [address] MCV (RBC) [Entitic vol] 88.3 fL Normal 80-94 [facility] Comment on above: Order Comment: 126.1 Performed By: #### L 100.0500 #### [facility] [address] [place], [address] Platelet mean volume (Bld) [Entitic vol] 10.9 fL Normal 6.2-12.0 [facility] Comment on above: Order Comment: 126.1 Performed By: #### L 100.0500 #### [facility] [address] [place], [address] Platelets (Bld) [#/Vol] 234 10*3/uL Normal 150-450 [facility] Comment on above: Order Comment: 126.1 Performed By: #### L 100.0500 #### [facility] [address] [place], [address] RBC (Bld) [#/Vol] 3.32 10*6/uL Low 4.6-6.2 [facility] Comment on above: Order Comment: 126.1 Performed By: #### L 100.0500 #### [facility] [address] [place], [address] RDW SD 47.5 fl High 35.1-43.9 [facility] Comment on above: Order Comment: 126.1 Performed By: #### L 100.0500 #### [facility] [address] [place], [address] WBC (Bld) [#/Vol] 5.7 10*3/uL Normal 4.4-11.0 [facility] Comment on above: Order Comment: 126.1 Performed By: #### L 100.0500 #### [facility] [address] [place], [address] Erythrocyte distribution wid th (RBC) [Ratio]Ordered By: Aura Sky on 10-03-2024 Erythrocyte distribution width (RBC) [Entitic vol] 47.5 fL High 35.1-43.9 [facility] Erythrocyte distribution wid th ratioOrdered By: Aura Sky on 10-03-2024 Erythrocyte distribution width (RBC) [Ratio] 14.8 % High 11.6-14.6 [facility] Erythrocyte distribution wid th standard deviationOrdered By: Aura Sky on 10-03-2024 Erythrocyte distribution width (RBC) [Ratio] 47.5 fl High 35.1-43.9 [facility] Hematocrit Auto (Bld) [Volum e fraction]Ordered By: Aura Sky on 10-03-2024 Hematocrit (Bld) [Volume fraction] 29.3 % Low 40-54 [facility] Hemoglobin measurementOrdere d By: Aura Sky on 10-03-2024 Hemoglobin (Bld) [Mass/Vol] 9.0 g/dL Low 13.0-16.5 [facility] MCV (mean corpuscular volume ) determinationOrdered By: Aura Sky on 10-03-2024 MCV (RBC) [Entitic vol] 88.3 fL 80-94 [facility] Mean corpuscular hemoglobin (MCH) determinationOrdered By: Aura Sky on 10-03-2024 MCH (RBC) [Entitic mass] 27.1 pg 27.0-32.0 [facility] Mean corpuscular hemoglobin concentration (MCHC) determinationOrdered By: Aura Sky on 10-03-2024 MCHC (RBC) [Mass/Vol] 30.7 g/dL Low 32-36 [facility] Mean platelet volume determi nationOrdered By: Aura Sky on 10-03-2024 Platelet mean volume (Bld) [Entitic vol] 10.9 fL 6.2-12.0 [facility] Platelet countOrdered By: Juanita Sky on 10-03-2024 Platelets (Bld) [#/Vol] 234 10*3/uL 150-450 [facility] RBC Auto (Bld) [#/Vol]Ordere d By: Aura Sky on 10-03-2024 RBC (Bld) [#/Vol] 3.32 10*6/uL Low 4.6-6.2 [facility] White blood cell (WBC) count Ordered By: Aura Sky on 10-03-2024 WBC (Bld) [#/Vol] 5.7 10*3/uL 4.4-11.0 [facility] Basic Metabolic Profile (BMP )on 09-04-2024 BUN/CRE 9.0 RATIO Low 10-20 [facility] Comment on above: Order Comment: 126-1 Performed By: #### L 501.9985, L500.4100, L100.0500, L501.9520, L500.2500, L503.0105 #### [facility] [address] [place], [address] CA,Total 8.2 mg/dL Low 8.5-10.1 [facility] Comment on above: Order Comment: 126-1 Performed By: #### L 501.9985, L500.4100, L100.0500, L501.9520, L500.2500, L503.0105 #### [facility] [address] [place], [address] Chloride [Moles/Vol] 101 mmol/L Normal 98-107 [facility] Comment on above: Order Comment: 126-1 Performed By: #### L 501.9985, L500.4100, L100.0500, L501.9520, L500.2500, L503.0105 #### [facility] [address] [place], [address] CO2 [Moles/Vol] 29.0 mmol/L Normal 21.0-32.0 [facility] Comment on above: Order Comment: 126-1 Performed By: #### L 501.9985, L500.4100, L100.0500, L501.9520, L500.2500, L503.0105 #### [facility] [address] [place], [address] Creatinine [Mass/Vol] 1.66 mg/dL High 0.70-1.30 [facility] Comment on above: Order Comment: 126-1 Result Comment: The validity of the calculated GFR GFRAA in patients over 70 years has not been determined. Clinical correlation is essential. Performed By: #### L 501.9985, L500.4100, L100.0500, L501.9520, L500.2500, L503.0105 #### [facility] [address] [place], [address] EST GFR - AA 52 mL/min Low >60 [facility] Comment on above: Order Comment: 126-1 Result Comment: Afri can [place]an GFR Calc Performed By: #### L 501.9985, L500.4100, L100.0500, L501.9520, L500.2500, L503.0105 #### [facility] [address] [place], [address] GAP 8 Normal 5-15 [facility] Comment on above: Order Comment: 126-1 Performed By: #### L 501.9985, L500.4100, L100.0500, L501.9520, L500.2500, L503.0105 #### [facility] [address] [place], [address] GFR/1.73 sq M.predicted among non-blacks MDRD (S/P/Bld) [Vol rate/Area] 43 mL/min/{1.73_m2} Low >60 [facility] Comment on above: Order Comment: 126-1 Result Comment: Non- GFR Calc Performed By: #### L 501.9985, L500.4100, L100.0500, L501.9520, L500.2500, L503.0105 #### [facility] [address] [place], [address] Glucose [Mass/Vol] 134 mg/dL High 74-106 [facility] Comment on above: Order Comment: 126-1 Result Comment: Fast ing Glucose result greater than or equal to 126 mg/dL suggests DIABETES MELLITUS per A.D.A. criteria. Performed By: #### L 501.9985, L500.4100, L100.0500, L501.9520, L500.2500, L503.0105 #### [facility] [address] [place], [address] Potassium [Moles/Vol] 3.9 mmol/L Normal 3.5-5.1 [facility] Comment on above: Order Comment: 126-1 Performed By: #### L 501.9985, L500.4100, L100.0500, L501.9520, L500.2500, L503.0105 #### [facility] [address] [place], [address] Sodium [Moles/Vol] 138 mmol/L Normal 136-145 [facility] Comment on above: Order Comment: 126-1 Performed By: #### L 501.9985, L500.4100, L100.0500, L501.9520, L500.2500, L503.0105 #### [facility] [address] [place], [address] Urea nitrogen [Mass/Vol] 15 mg/dL Normal 7-18 [facility] Comment on above: Order Comment: 126-1 Performed By: #### L 501.9985, L500.4100, L100.0500, L501.9520, L500.2500, L503.0105 #### [facility] [address] [place], [address] Blood urea nitrogen (BUN)/cr eatinine ratioOrdered By: Aura Sky on 09-04-2024 Urea nitrogen/Creatinine [Mass ratio] 9.0 mg/mg Low 10-20 [facility] CBC-Complete Blood Cnt No Di ffon 09-04-2024 Erythrocyte distribution width (RBC) [Ratio] 14.9 % High 11.6-14.6 [facility] Comment on above: Order Comment: 126-1 Performed By: #### L 501.9985, L500.4100, L100.0500, L501.9520, L500.2500, L503.0105 #### [facility] [address] [place], [address] Hematocrit (Bld) [Volume fraction] 29.4 % Low 40-54 [facility] Comment on above: Order Comment: 126-1 Performed By: #### L 501.9985, L500.4100, L100.0500, L501.9520, L500.2500, L503.0105 #### [facility] [address] [place], [address] Hemoglobin (Bld) [Mass/Vol] 9.1 g/dL Low 13.0-16.5 [facility] Comment on above: Order Comment: 126-1 Performed By: #### L 501.9985, L500.4100, L100.0500, L501.9520, L500.2500, L503.0105 #### [facility] [address] [place], [address] MCH (RBC) [Entitic mass] 27.1 pg Normal 27.0-32.0 [facility] Comment on above: Order Comment: 126-1 Performed By: #### L 501.9985, L500.4100, L100.0500, L501.9520, L500.2500, L503.0105 #### [facility] [address] [place], [address] MCHC (RBC) [Mass/Vol] 31.0 g/dL Low 32-36 [facility] Comment on above: Order Comment: 126-1 Performed By: #### L 501.9985, L500.4100, L100.0500, L501.9520, L500.2500, L503.0105 #### [facility] [address] [place], [address] MCV (RBC) [Entitic vol] 87.5 fL Normal 80-94 [facility] Comment on above: Order Comment: 126-1 Performed By: #### L 501.9985, L500.4100, L100.0500, L501.9520, L500.2500, L503.0105 #### [facility] [address] [place], [address] Platelet mean volume (Bld) [Entitic vol] 11.3 fL Normal 6.2-12.0 [facility] Comment on above: Order Comment: 126-1 Performed By: #### L 501.9985, L500.4100, L100.0500, L501.9520, L500.2500, L503.0105 #### [facility] [address] [place], [address] Platelets (Bld) [#/Vol] 228 10*3/uL Normal 150-450 [facility] Comment on above: Order Comment: 126-1 Performed By: #### L 501.9985, L500.4100, L100.0500, L501.9520, L500.2500, L503.0105 #### [facility] [address] [place], [address] RBC (Bld) [#/Vol] 3.36 10*6/uL Low 4.6-6.2 [facility] Comment on above: Order Comment: 126-1 Performed By: #### L 501.9985, L500.4100, L100.0500, L501.9520, L500.2500, L503.0105 #### [facility] [address] [place], [address] RDW SD 47.5 fl High 35.1-43.9 [facility] Comment on above: Order Comment: 126-1 Performed By: #### L 501.9985, L500.4100, L100.0500, L501.9520, L500.2500, L503.0105 #### [facility] [address] [place], [address] WBC (Bld) [#/Vol] 5.5 10*3/uL Normal 4.4-11.0 [facility] Comment on above: Order Comment: 126-1 Performed By: #### L 501.9985, L500.4100, L100.0500, L501.9520, L500.2500, L503.0105 #### [facility] [address] [place], [address] Carbon dioxide measurementOr dered By: Aura Sky on 09-04-2024 CO2 [Moles/Vol] 29.0 mmol/L 21.0-32.0 [facility] Chloride measurementOrdered By: Aura Sky on 09-04-2024 Chloride [Moles/Vol] 101 mmol/L 98-107 [facility] Erythrocyte distribution wid th (RBC) [Ratio]Ordered By: Aura Sky on 09-04-2024 Erythrocyte distribution width (RBC) [Entitic vol] 47.5 fL High 35.1-43.9 [facility] Erythrocyte distribution wid th ratioOrdered By: Aura Sky on 09-04-2024 Erythrocyte distribution width (RBC) [Ratio] 14.9 % High 11.6-14.6 [facility] Erythrocyte distribution wid th standard deviationOrdered By: Aura Sky on 09-04-2024 Erythrocyte distribution width (RBC) [Ratio] 47.5 fl High 35.1-43.9 [facility] Estimated glomerular filtrat ion rate (GFR) AmericanOrdered By: Aura Sky on 09-04-2024 Estimated GFR (MDRD) Amer 52 mL/min Low >60 [facility] Comment on above: GFR Calc Glomerular filtration rate ( GFR) estimationOrdered By: Aura Sky on 09-04-2024 Estimated GFR (MDRD) Non-Af Amer 43 mL/min Low >60 [facility] Comment on above: Non- GFR Calc GFR/1.73 sq M.predicted among non-blacks MDRD (S/P/Bld) [Vol rate/Area] 43 mL/min/{1.73_m2} Low >60 [facility] Comment on above: Non- GFR Calc Glucose measurementOrdered B y: Aura Sky on 09-04-2024 Glucose [Mass/Vol] 134 mg/dL High 74-106 [facility] Comment on above: Fasting Glucose resu lt greater than or equal to 126 mg/dL suggests DIABETES MELLITUS per A.D.A. criteria. Hematocrit Auto (Bld) [Volum e fraction]Ordered By: Aura Sky on 09-04-2024 Hematocrit (Bld) [Volume fraction] 29.4 % Low 40-54 [facility] Hemoglobin A1con 09-04-2024 HbA1c (Bld) [Mass fraction] 6.0 % High 3.8-5.6 [facility] [facility] Comment on above: Order Comment: 126-1 Result Comment: Norm al < 5.7 % Prediabetic 5.7 - 6.4 % Diabetic >or= 6.5 % Please note range changes. Performed By: #### L 501.9905, L500.4100, L100.0500, L501.9520, L500.2500, L503.0105 #### [facility] [address] [place], [address] Hemoglobin A1c percentageOrd ered By: Aura Sky on 09-04-2024 HbA1c (Bld) [Mass fraction] 6.0 % High 3.8-5.6 [facility] Comment on above: Normal < 5.7 % Predi abetic 5.7 - 6.4 % Diabetic >or= 6.5 % Please note range changes. Hemoglobin measurementOrdere d By: Aura Sky on 09-04-2024 Hemoglobin (Bld) [Mass/Vol] 9.1 g/dL Low 13.0-16.5 [facility] High density lipoprotein (HD L) measurementOrdered By: Aura Sky on 09-04-2024 Cholesterol in HDL [Mass/Vol] 38 mg/dL Low >40 [facility] Comment on above: The drugs N-Acetylcy steine and Metamizole may falsely depress this assay. Reference Range HDL <40 mg/dL Low HDL Cholesterol HDL >or= 60 mg/dL High HDL Cholesterol Lipid Profileon 09-04-2024 Cholesterol [Mass/Vol] 103 mg/dL Normal [address] [facility] Comment on above: Order Comment: 126-1 Result Comment: <200 mg/dL Desirable 200-240 mg/dL Borderline >240 mg/dL High Risk Performed By: #### L 501.9985, L500.4100, L100.0500, L501.9520, L500.2500, L503.0105 #### [facility] [address] [place], [address] Cholesterol in HDL [Mass/Vol] 38 mg/dL Low [facility] Comment on above: Order Comment: 126-1 Result Comment: The drugs N-Acetylcysteine and Metamizole may falsely depress this assay. Reference Range HDL <40 mg/dL Low HDL Cholesterol HDL >or= 60 mg/dL High HDL Cholesterol Performed By: #### L 501.9985, L500.4100, L100.0500, L501.9520, L500.2500, L503.0105 #### [facility] [address] [place], [address] Cholesterol in LDL [Mass/Vol] 47 mg/dL Normal 0-130 [facility] Comment on above: Order Comment: 126-1 Performed By: #### L 501.9985, L500.4100, L100.0500, L501.9520, L500.2500, L503.0105 #### [facility] [address] [place], [address] Cholesterol in VLDL [Mass/Vol] 18 mg/dL Normal 5-40 [facility] Comment on above: Order Comment: 126-1 Performed By: #### L 501.9985, L500.4100, L100.0500, L501.9520, L500.2500, L503.0105 #### [facility] [address] [place], [address] Triglyceride [Mass/Vol] 88 mg/dL Normal [facility] Comment on above: Order Comment: 126-1 Result Comment: The drugs N-Acetylcysteine and Metamizole may falsely depress this assay. Serum Triglycerides Reference Interval Normal <150 mg/dL Borderline high 150 - 199 mg/dL High 200 - 499 mg/dL Very High > or = 500 mg/dL Performed By: #### L 501.9985, L500.4100, L100.0500, L501.9520, L500.2500, L503.0105 #### [facility] [address] [facility] [address] [place], [place], [id number] Low density lipoprotein (LDL ) cholesterol measurementOrdered By: Aura Sky on 09-04-2024 Cholesterol in LDL [Mass/Vol] 47 mg/dL 0-130 [facility] MCV (mean corpuscular volume ) determinationOrdered By: Aura Sky on 09-04-2024 MCV (RBC) [Entitic vol] 87.5 fL 80-94 [facility] Mean corpuscular hemoglobin (MCH) determinationOrdered By: Aura Sky on 09-04-2024 MCH (RBC) [Entitic mass] 27.1 pg 27.0-32.0 [facility] Mean corpuscular hemoglobin concentration (MCHC) determinationOrdered By: Aura Sky on 09-04-2024 MCHC (RBC) [Mass/Vol] 31.0 g/dL Low 32-36 [facility] Mean platelet volume determi nationOrdered By: Aura Sky on 09-04-2024 Platelet mean volume (Bld) [Entitic vol] 11.3 fL 6.2-12.0 [facility] Platelet countOrdered By: Juanita Sky on 09-04-2024 Platelets (Bld) [#/Vol] 228 10*3/uL 150-450 [facility] Potassium measurementOrdered By: Aura Sky on 09-04-2024 Potassium [Moles/Vol] 3.9 mmol/L 3.5-5.1 [facility] RBC Auto (Bld) [#/Vol]Ordere d By: Aura Sky on 09-04-2024 RBC (Bld) [#/Vol] 3.36 10*6/uL Low 4.6-6.2 [facility] Serum anion gap measurementO rdered By: Aura Sky on 09-04-2024 Anion gap [Moles/Vol] 8 mmol/L 5-15 [facility] Serum or plasma calcium maria l urement (mass/volume)Ordered By: Aura Sky on 09-04-2024 Calcium [Mass/Vol] 8.2 mg/dL Low 8.5-10.1 [facility] Serum or plasma cholesterol measurement (mass/volume)Ordered By: Aura Sky on 09-04-2024 Cholesterol [Mass/Vol] 103 mg/dL <[address] [facility] Comment on above: <200 mg/dL Desirable 200-240 mg/dL Borderline >240 mg/dL High Risk Serum or plasma creatinine m easurement (mass/volume)Ordered By: Aura Sky on 09-04-2024 Creatinine [Mass/Vol] 1.66 mg/dL High 0.70-1.30 [facility] Comment on above: The validity of the calculated GFR & GFRAA in patients over 70 years has not been determined. Clinical correlation is essential. Serum or plasma thyroid stim ulating hormone (TSH) measurement (units/volume)Ordered By: Aura Sky on 09-04-2024 TSH Qn 1.150 uIU/mL 0.358-3.740 [facility] Serum or plasma urea nitroge n measurement (mass/volume)Ordered By: Aura Sky on 09-04-2024 Urea nitrogen [Mass/Vol] 15 mg/dL 7-18 [facility] Sodium levelOrdered By: Aura Sky on 09-04-2024 Sodium [Moles/Vol] 138 mmol/L 136-145 [facility] TSH QnOrdered By: Aura lou on 09-04-2024 Thyroid Stimulating Hormone (TSH) 1.150 uIU/mL 0.358-3.740 [facility] Thyroid Stim Hormone (TSH)on 09-04-2024 TSH 1.150 uIU/mL Normal 0.358-3.740 [facility] Comment on above: Order Comment: 126-1 Performed By: #### L 501.9985, L500.4100, L100.0500, L501.9520, L500.2500, L503.0105 #### [facility] [address] [place], [place], [id number] Triglycerides measurementOrd ered By: Aura Sky on 09-04-2024 Triglyceride [Mass/Vol] 88 mg/dL <199 [facility] Comment on above: The drugs N-Acetylcy steine and Metamizole may falsely depress this assay.Serum Triglycerides Reference Interval Normal <150 mg/dL Borderline high 150 - 199 mg/dL High 200 - 499 mg/dL Very High > or = 500 mg/dL Very low density lipoprotein (VLDL) cholesterol measurementOrdered By: Aura Sky on 09-04-2024 Very low density lipoprotein (VLDL) cholesterol measurement 18 mg/dL 5-40 [facility] VLDL Cholesterol 18 mg/dL 5-40 [facility] Vitamin B12on 09-04-2024 Cobalamin (Vitamin B12) [Mass/Vol] 408 pg/mL Normal 211-911 [facility] Comment on above: Order Comment: 126-1 Performed By: #### L 501.9985, L500.4100, L100.0500, L501.9520, L500.2500, L503.0105 #### [facility] [address] [place], [address] Vitamin B12 measurementOrder ed By: Aura Sky on 09-04-2024 Cobalamin (Vitamin B12) [Mass/Vol] 408 pg/mL 211-911 [facility] White blood cell (WBC) count Ordered By: Aura Sky on 09-04-2024 WBC (Bld) [#/Vol] 5.5 10*3/uL 4.4-11.0 [facility] CBC-Complete Blood Cnt No Di ffon 08-03-2024 Erythrocyte distribution width (RBC) [Ratio] 15.9 % High 11.6-14.6 [facility] Comment on above: Order Comment: 126.1 Performed By: #### L 100.0500 #### [facility] [address] [place], [address] Hematocrit (Bld) [Volume fraction] 29.8 % Low 40-54 [facility] Comment on above: Order Comment: 126.1 Performed By: #### L 100.0500 #### [facility] [address] [place], [address] Hemoglobin (Bld) [Mass/Vol] 9.2 g/dL Low 13.0-16.5 [facility] Comment on above: Order Comment: 126.1 Performed By: #### L 100.0500 #### [facility] [address] [place], [address] MCH (RBC) [Entitic mass] 27.8 pg Normal 27.0-32.0 [facility] Comment on above: Order Comment: 126.1 Performed By: #### L 100.0500 #### [facility] [address] [place], [address] MCHC (RBC) [Mass/Vol] 30.9 g/dL Low 32-36 [facility] Comment on above: Order Comment: 126.1 Performed By: #### L 100.0500 #### [facility] [address] [place], [address] MCV (RBC) [Entitic vol] 90.0 fL Normal 80-94 [facility] Comment on above: Order Comment: 126.1 Performed By: #### L 100.0500 #### [facility] [address] [place], [address] Platelet mean volume (Bld) [Entitic vol] 10.7 fL Normal 6.2-12.0 [facility] Comment on above: Order Comment: 126.1 Performed By: #### L 100.0500 #### [facility] [address] [place], [address] Platelets (Bld) [#/Vol] 238 10*3/uL Normal 150-450 [facility] Comment on above: Order Comment: 126.1 Performed By: #### L 100.0500 #### [facility] [address] [place], [address] RBC (Bld) [#/Vol] 3.31 10*6/uL Low 4.6-6.2 [facility] Comment on above: Order Comment: 126.1 Performed By: #### L 100.0500 #### [facility] [address] [place], [address] RDW SD 53.1 fl High 35.1-43.9 [facility] Comment on above: Order Comment: 126.1 Performed By: #### L 100.0500 #### [facility] [address] [place], [address] WBC (Bld) [#/Vol] 8.4 10*3/uL Normal 4.4-11.0 [facility] Comment on above: Order Comment: 126.1 Performed By: #### L 100.0500 #### [facility] [address] [place], [address] Erythrocyte distribution wid th (RBC) [Ratio]Ordered By: Aura Sky on 08-03-2024 Erythrocyte distribution width (RBC) [Entitic vol] 53.1 fL High 35.1-43.9 [facility] Erythrocyte distribution wid th ratioOrdered By: Aura Sky on 08-03-2024 Erythrocyte distribution width (RBC) [Ratio] 15.9 % High 11.6-14.6 [facility] Hematocrit Auto (Bld) [Volum e fraction]Ordered By: Aura Sky on 08-03-2024 Hematocrit (Bld) [Volume fraction] 29.8 % Low 40-54 [facility] Hemoglobin measurementOrdere d By: Auar Sky on 08-03-2024 Hemoglobin (Bld) [Mass/Vol] 9.2 g/dL Low 13.0-16.5 [facility] MCV (mean corpuscular volume ) determinationOrdered By: Aura Sky on 08-03-2024 MCV (RBC) [Entitic vol] 90.0 fL 80-94 [facility] Mean corpuscular hemoglobin (MCH) determinationOrdered By: Aura Sky on 08-03-2024 MCH (RBC) [Entitic mass] 27.8 pg 27.0-32.0 [facility] Mean corpuscular hemoglobin concentration (MCHC) determinationOrdered By: Aura Sky on 08-03-2024 MCHC (RBC) [Mass/Vol] 30.9 g/dL Low 32-36 [facility] Mean platelet volume determi nationOrdered By: Aura Sky on 08-03-2024 Platelet mean volume (Bld) [Entitic vol] 10.7 fL 6.2-12.0 [facility] Platelet countOrdered By: Juanita Sky on 08-03-2024 Platelets (Bld) [#/Vol] 238 10*3/uL 150-450 [facility] RBC Auto (Bld) [#/Vol]Ordere d By: Aura Sky on 08-03-2024 RBC (Bld) [#/Vol] 3.31 10*6/uL Low 4.6-6.2 [facility] White blood cell (WBC) count Ordered By: Aura Sky on 08-03-2024 WBC (Bld) [#/Vol] 8.4 10*3/uL 4.4-11.0 [facility] CBC-Complete Blood Cnt No Di ffon 11-25-2024 Erythrocyte distribution width (RBC) [Ratio] 15.8 % High 11.6-14.6 [facility] Comment on above: Performed By: #### M 100.7900 #### [facility] [address] [place], [address] Hematocrit (Bld) [Volume fraction] 27.4 % Low 40-54 [facility] Comment on above: Performed By: #### M 100.7900 #### [facility] [address] [place], [address] Hemoglobin (Bld) [Mass/Vol] 8.9 g/dL Low 13.0-16.5 [facility] Comment on above: Performed By: #### M 100.7900 #### [facility] [address] [place], [address] MCH (RBC) [Entitic mass] 28.9 pg Normal 27.0-32.0 [facility] Comment on above: Performed By: #### M 100.7900 #### [facility] [address] [place], [address] MCHC (RBC) [Mass/Vol] 32.5 g/dL Normal 32-36 [facility] Comment on above: Performed By: #### M 100.7900 #### [facility] [address] [place], [address] MCV (RBC) [Entitic vol] 89.0 fL Normal 80-94 [facility] Comment on above: Performed By: #### M 100.7900 #### [facility] [address] [place], [address] Platelet mean volume (Bld) [Entitic vol] 10.7 fL Normal 6.2-12.0 [facility] Comment on above: Performed By: #### M 100.7900 #### [facility] [address] [place], [address] Platelets (Bld) [#/Vol] 173 10*3/uL Normal 150-450 [facility] Comment on above: Performed By: #### M 100.7900 #### [facility] [address] [place], [address] RBC (Bld) [#/Vol] 3.08 10*6/uL Low 4.6-6.2 [facility] Comment on above: Performed By: #### M 100.7900 #### [facility] [address] [place], [address] RDW SD 51.2 fl High 35.1-43.9 [facility] Comment on above: Performed By: #### M 100.7900 #### [facility] [address] [place], [address] WBC (Bld) [#/Vol] 5.1 10*3/uL Normal 4.4-11.0 [facility] Comment on above: Performed By: #### M 100.7900 #### [facility] [address] [place], [address] Basophil percentageOrdered B y: Aura Sky on 11-02-2023 Chloride [Moles/Vol] 102 mmol/L 98-107 [facility] Glucose [Mass/Vol] 128 mg/dL 74-106 [facility] Comment on above: Fasting Glucose resu lt greater than or equal to 126 mg/dL suggests DIABETES MELLITUS per A.D.A. criteria. Hemoglobin (Bld) [Mass/Vol] 9.3 g/dL 13.0-16.5 [facility] Potassium [Moles/Vol] 3.8 mmol/L 3.5-5.1 [facility] Sodium [Moles/Vol] 137 mmol/L 136-145 [facility] WBC (Bld) [#/Vol] 6.9 10*3/uL 4.4-11.0 [facility] Determination of erythrocyte mean corpuscular volume (MCV)Ordered By: Aura Sky on 11-02-2023 MCV (RBC) [Entitic vol] 93.2 fL 80-94 [facility] Erythrocyte distribution wid th ratioOrdered By: Aura Sky on 11-02-2023 Erythrocyte distribution width (RBC) [Ratio] 14.2 % 11.6-14.6 [facility] Erythrocyte distribution wid th standard deviationOrdered By: Aura kSy on 11-02-2023 Erythrocyte distribution width (RBC) [Entitic vol] 48.0 fL 35.1-43.9 [facility] Hematocrit Auto (Bld) [Volum e fraction]Ordered By: Aura Sky on 11-02-2023 Hematocrit (Bld) [Volume fraction] 30.3 % 40-54 [facility] - Chemistry and C hemistry - challengeOrdered By: Aura Sky on 11-02-2023 CO2 [Moles/Vol] 29.0 mmol/L 21.0-32.0 [facility] Cobalamin (Vitamin B12) [Mass/Vol] 463 pg/mL 211-911 [facility] Urea nitrogen/Creatinine [Mass ratio] 13.0 mg/mg 10-20 [facility] - Hematology and Cell countsOrdered By: Aura Sky on 11-02-2023 MCH (RBC) [Entitic mass] 28.6 pg 27.0-32.0 [facility] MCHC (RBC) [Mass/Vol] 30.7 g/dL 32-36 [facility] Platelet mean volume (Bld) [Entitic vol] 11.0 fL 6.2-12.0 [facility] Platelets (Bld) [#/Vol] 236 10*3/uL 150-450 [facility] No Panel InformationOrdered By: Aura Sky on 11-02-2023 Estimated GFR (MDRD) Amer 46 mL/min >60 [facility] Comment on above: GFR Calc Estimated GFR (MDRD) Non-Af Amer 38 mL/min >60 [facility] Comment on above: Non- GFR Calc RBC Auto (Bld) [#/Vol]Ordere d By: Aura Sky on 11-02-2023 RBC (Bld) [#/Vol] 3.25 10*6/uL 4.6-6.2 [facility] Serum or plasma calcium maria l urement (mass/volume)Ordered By: Aura Sky on 11-02-2023 Calcium [Mass/Vol] 8.4 mg/dL 8.5-10.1 [facility] Serum or plasma creatinine m easurement (mass/volume)Ordered By: Aura Sky on 11-02-2023 Creatinine [Mass/Vol] 1.85 mg/dL 0.70-1.30 [facility] Comment on above: The validity of the calculated GFR & GFRAA in patients over 70 years has not been determined. Clinical correlation is essential. Serum or plasma thyroid stim ulating hormone (TSH) measurement (units/volume)Ordered By: Aura Sky on 11-02-2023 TSH Qn 1.19 uIU/mL 0.358-3.74 [facility] Serum or plasma urea nitroge n measurement (mass/volume)Ordered By: Aura Sky on 11-02-2023 Urea nitrogen [Mass/Vol] 24 mg/dL 7-18 [facility] Thin prep Papanicolaou smear with manual screeningOrdered By: Aura Sky on 11-02-2023 Thin prep Papanicolaou smear with manual screening 6 5-15 [facility] Whole blood hemoglobin A1c/t otal hemoglobin ratio (mass fraction)Ordered By: Aura Sky on 11-02-2023 HbA1c (Bld) [Mass fraction] 5.7 % 3.8-5.6 [facility] Comment on above: Normal < 5.7 % Predi abetic 5.7 - 6.4 % Diabetic >or= 6.5 % Please note range changes. Basophil percentageOrdered B y: Aura Sky on 10-27-2023 Hemoglobin (Bld) [Mass/Vol] 9.5 g/dL 13.0-16.5 [facility] WBC (Bld) [#/Vol] 6.3 10*3/uL 4.4-11.0 [facility] Determination of erythrocyte mean corpuscular volume (MCV)Ordered By: Aura Sky on 10-27-2023 MCV (RBC) [Entitic vol] 92.4 fL 80-94 [facility] Erythrocyte distribution wid th ratioOrdered By: Aura Sky on 10-27-2023 Erythrocyte distribution width (RBC) [Ratio] 14.0 % 11.6-14.6 [facility] Erythrocyte distribution wid th standard deviationOrdered By: Aura Sky on 10-27-2023 Erythrocyte distribution width (RBC) [Entitic vol] 47.2 fL 35.1-43.9 [facility] Hematocrit Auto (Bld) [Volum e fraction]Ordered By: Aura Sky on 10-27-2023 Hematocrit (Bld) [Volume fraction] 30.4 % 40- [facility] - Hematology and Cell countsOrdered By: Aura Sky on 10-27-2023 MCH (RBC) [Entitic mass] 28.9 pg 27.0-32.0 [facility] MCHC (RBC) [Mass/Vol] 31.3 g/dL 32-36 [facility] Platelet mean volume (Bld) [Entitic vol] 10.7 fL 6.2-12.0 [facility] Platelets (Bld) [#/Vol] 280 10*3/uL 150-450 [facility] RBC Auto (Bld) [#/Vol]Ordere d By: Aura Sky on 10-27-2023 RBC (Bld) [#/Vol] 3.29 10*6/uL 4.6-6.2 [facility] Basophil percentageOrdered B y: Aura Sky on 09-29-2023 Hemoglobin (Bld) [Mass/Vol] 8.9 g/dL 13.0-16.5 [facility] WBC (Bld) [#/Vol] 6.0 10*3/uL 4.4-11.0 [facility] Determination of erythrocyte mean corpuscular volume (MCV)Ordered By: Aura Sky on 09-29-2023 MCV (RBC) [Entitic vol] 92.1 fL 80-94 [facility] Erythrocyte distribution wid th ratioOrdered By: Aura Sky on 09-29-2023 Erythrocyte distribution width (RBC) [Ratio] 14.0 % 11.6-14.6 [facility] Erythrocyte distribution wid th standard deviationOrdered By: Aura Sky on 09-29-2023 Erythrocyte distribution width (RBC) [Entitic vol] 47.3 fL 35.1-43.9 [facility] Hematocrit Auto (Bld) [Volum e fraction]Ordered By: Aura Sky on 09-29-2023 Hematocrit (Bld) [Volume fraction] 27.8 % 40-54 [facility] - Hematology and Cell countsOrdered By: Aura Sky on 09-29-2023 MCH (RBC) [Entitic mass] 29.5 pg 27.0-32.0 [facility] MCHC (RBC) [Mass/Vol] 32.0 g/dL 32-36 [facility] Platelet mean volume (Bld) [Entitic vol] 10.6 fL 6.2-12.0 [facility] Platelets (Bld) [#/Vol] 251 10*3/uL 150-450 [facility] RBC Auto (Bld) [#/Vol]Ordere d By: Aura Sky on 09-29-2023 RBC (Bld) [#/Vol] 3.02 10*6/uL 4.6-6.2 [facility] Basophil percentageOrdered B y: Aura Sky on 09-03-2023 Chloride [Moles/Vol] 105 mmol/L 98-107 [facility] Glucose [Mass/Vol] 102 mg/dL 74-106 [facility] Comment on above: Fasting Glucose resu lt from 100 to 125 mg/dL suggests IMPAIRED HOMEOSTASIS per A.D.A. criteria. Hemoglobin (Bld) [Mass/Vol] 9.2 g/dL 13.0-16.5 [facility] Potassium [Moles/Vol] 4.4 mmol/L 3.5-5.1 [facility] Sodium [Moles/Vol] 136 mmol/L 136-145 [facility] WBC (Bld) [#/Vol] 6.3 10*3/uL 4.4-11.0 [facility] Determination of erythrocyte mean corpuscular volume (MCV)Ordered By: Aura Sky on 09-03-2023 MCV (RBC) [Entitic vol] 90.7 fL 80-94 [facility] Erythrocyte distribution wid th ratioOrdered By: Aura Sky on 09-03-2023 Erythrocyte distribution width (RBC) [Ratio] 13.3 % 11.6-14.6 [facility] Erythrocyte distribution wid th standard deviationOrdered By: Aura Sky on 09-03-2023 Erythrocyte distribution width (RBC) [Entitic vol] 44.0 fL 35.1-43.9 [facility] Hematocrit Auto (Bld) [Volum e fraction]Ordered By: Aura Sky on 09-03-2023 Hematocrit (Bld) [Volume fraction] 29.2 % 40-54 [facility] - Chemistry and C hemistry - challengeOrdered By: Aura Sky on 09-03-2023 CO2 [Moles/Vol] 29.0 mmol/L 21.0-32.0 [facility] Urea nitrogen/Creatinine [Mass ratio] 14.0 mg/mg 10-20 [facility] - Hematology and Cell countsOrdered By: Aura Sky on 09-03-2023 MCH (RBC) [Entitic mass] 28.6 pg 27.0-32.0 [facility] MCHC (RBC) [Mass/Vol] 31.5 g/dL 32-36 [facility] Platelets (Bld) [#/Vol] 244 10*3/uL 150-450 [facility] No Panel InformationOrdered By: Aura Sky on 09-03-2023 Estimated GFR (MDRD) Amer 50 mL/min >60 [facility] Comment on above: GFR Calc Estimated GFR (MDRD) Non-Af Amer 41 mL/min >60 [facility] Comment on above: Non- GFR Calc Platelet mean volume Joseph-Ec ker (Bld) [Entitic vol]Ordered By: Aura Sky on 09-03-2023 Platelet mean volume (Bld) [Entitic vol] 10.7 fL 6.2-12.0 [facility] RBC Auto (Bld) [#/Vol]Ordere d By: Aura Sky on 09-03-2023 RBC (Bld) [#/Vol] 3.22 10*6/uL 4.6-6.2 [facility] Serum or plasma calcium maria l urement (mass/volume)Ordered By: Aura Sky on 09-03-2023 Calcium [Mass/Vol] 8.4 mg/dL 8.5-10.1 [facility] Serum or plasma creatinine m easurement (mass/volume)Ordered By: Aura Sky on 09-03-2023 Creatinine [Mass/Vol] 1.72 mg/dL 0.70-1.30 [facility] Comment on above: The validity of the calculated GFR & GFRAA in patients over 70 years has not been determined. Clinical correlation is essential. Serum or plasma urea nitroge n measurement (mass/volume)Ordered By: Aura Sky on 09-03-2023 Urea nitrogen [Mass/Vol] 24 mg/dL 7-18 [facility] Thin prep Papanicolaou smear with manual screeningOrdered By: Aura Sky on 09-03-2023 Thin prep Papanicolaou smear with manual screening 2 5-15 [facility] Basophil percentageOrdered B y: Aura Sky on 06-03-2023 Chloride [Moles/Vol] 100 mmol/L 98-107 [facility] Cholesterol [Mass/Vol] 132 mg/dL <[address] [facility] Comment on above: <200 mg/dL Desirable 200-240 mg/dL Borderline >240 mg/dL High Risk Glucose [Mass/Vol] 85 mg/dL 74-106 [facility] Potassium [Moles/Vol] 4.3 mmol/L 3.5-5.1 [facility] Sodium [Moles/Vol] 136 mmol/L 136-145 [facility] Triglyceride [Mass/Vol] 81 mg/dL <199 [facility] Comment on above: The drugs N-Acetylcy steine and Metamizole may falsely depress this assay.Serum Triglycerides Reference Interval Normal <150 mg/dL Borderline high 150 - 199 mg/dL High 200 - 499 mg/dL Very High > or = 500 mg/dL WBC (Bld) [#/Vol] 6.8 10*3/uL 4.4-11.0 [facility] Blood erythrocytes count (nu mber/volume)Ordered By: Aura Sky on 06-03-2023 RBC (Bld) [#/Vol] 4.00 10*6/uL 4.6-6.2 [facility] Blood hemoglobin measurement (mass/volume)Ordered By: Aura Sky on 06-03-2023 Hemoglobin (Bld) [Mass/Vol] 11.6 g/dL 13.0-16.5 [facility] Blood platelet mean volumeOr dered By: Aura Sky on 06-03-2023 Platelet mean volume (Bld) [Entitic vol] 10.9 fL 6.2-12.0 [facility] Determination of erythrocyte mean corpuscular volume (MCV)Ordered By: Aura Sky on 06-03-2023 MCV (RBC) [Entitic vol] 90.0 fL 80-94 [facility] Hematocrit Auto (Bld) [Volum e fraction]Ordered By: Aura Sky on 06-03-2023 Hematocrit (Bld) [Volume fraction] 36.0 % 40-54 [facility] Laboratory - Chemistry and C hemistry - challengeOrdered By: Aura Sky on 06-03-2023 CO2 [Moles/Vol] 33.0 mmol/L 21.0-32.0 [facility] Cobalamin (Vitamin B12) [Mass/Vol] 1192 pg/mL 211-911 [facility] Urea nitrogen/Creatinine [Mass ratio] 11.8 mg/mg 10-20 [facility] Laboratory - Hematology and Cell countsOrdered By: Aura Sky on 06-03-2023 Erythrocyte distribution width (RBC) [Entitic vol] 45.4 fL 35.1-43.9 [facility] Erythrocyte distribution width (RBC) [Ratio] 13.9 % 11.6-14.6 [facility] MCH (RBC) [Entitic mass] 29.0 pg 27.0-32.0 [facility] MCHC Auto (RBC) [Mass/Vol]Or dered By: Aura Sky on 06-03-2023 MCHC (RBC) [Mass/Vol] 32.2 g/dL 32-36 [facility] No Panel InformationOrdered By: Aura Sky on 06-03-2023 Estimated GFR (MDRD) Amer 57 mL/min >60 [facility] Comment on above: GFR Calc Estimated GFR (MDRD) Non-Af Amer 47 mL/min >60 [facility] Comment on above: Non- GFR Calc Thyroid Stimulating Hormone (TSH) 2.12 uIU/mL 0.358-3.74 [facility] Platelets bldOrdered By: Doe Sky on 06-03-2023 Platelets (Bld) [#/Vol] 239 10*3/uL 150-450 [facility] Serum or plasma calcium maria l urement (mass/volume)Ordered By: Aura Sky on 06-03-2023 Calcium [Mass/Vol] 8.1 mg/dL 8.5-10.1 [facility] Serum or plasma cholesterol in HDL measurement (mass/volume)Ordered By: Aura Sky on 06-03-2023 Cholesterol in HDL [Mass/Vol] 51 mg/dL >40 [facility] Comment on above: The drugs N-Acetylcy steine and Metamizole may falsely depress this assay. Reference Range HDL <40 mg/dL Low HDL Cholesterol HDL >or= 60 mg/dL High HDL Cholesterol Serum or plasma cholesterol in VLDL measurement (mass/volume)Ordered By: Aura Sky on 06-03-2023 Cholesterol in VLDL [Mass/Vol] 16 mg/dL 5-40 [facility] Serum or plasma creatinine m easurement (mass/volume)Ordered By: Aura Sky on 06-03-2023 Creatinine [Mass/Vol] 1.53 mg/dL 0.70-1.30 [facility] Comment on above: The validity of the calculated GFR & GFRAA in patients over 70 years has not been determined. Clinical correlation is essential. Serum or plasma low density lipoprotein (LDL) cholesterol measurement (mass/volume)Ordered By: Aura Sky on 06-03-2023 Cholesterol in LDL [Mass/Vol] 65 mg/dL 0-130 [facility] Serum or plasma urea nitroge n measurement (mass/volume)Ordered By: Aura Sky on 06-03-2023 Urea nitrogen [Mass/Vol] 18 mg/dL 7-18 [facility] Thin prep Papanicolaou smear with manual screeningOrdered By: Aura Sky on 06-03-2023 Thin prep Papanicolaou smear with manual screening 3 5-15 [facility] Whole blood hemoglobin A1c/t otal hemoglobin ratio (mass fraction)Ordered By: Aura Sky on 06-03-2023 HbA1c (Bld) [Mass fraction] 5.9 % 3.8-5.6 [facility] Comment on above: Normal < 5.7 % Predi abetic 5.7 - 6.4 % Diabetic >or= 6.5 % Please note range changes. Basophil percentageOrdered B y: Aura Sky on 03-03-2023 Chloride [Moles/Vol] 103 mmol/L 98-107 [facility] Glucose [Mass/Vol] 81 mg/dL 74-106 [facility] Potassium [Moles/Vol] 4.2 mmol/L 3.5-5.1 [facility] Sodium [Moles/Vol] 136 mmol/L 136-145 [facility] WBC (Bld) [#/Vol] 5.7 10*3/uL 4.4-11.0 [facility] Blood erythrocytes count (nu mber/volume)Ordered By: Aura Sky on 03-03-2023 RBC (Bld) [#/Vol] 3.63 10*6/uL 4.6-6.2 [facility] Blood hemoglobin measurement (mass/volume)Ordered By: Aura Sky on 03-03-2023 Hemoglobin (Bld) [Mass/Vol] 10.4 g/dL 13.0-16.5 [facility] Blood platelet mean volumeOr dered By: Aura Sky on 03-03-2023 Platelet mean volume (Bld) [Entitic vol] 10.7 fL 6.2-12.0 [facility] Determination of erythrocyte mean corpuscular volume (MCV)Ordered By: Aura Sky on 03-03-2023 MCV (RBC) [Entitic vol] 90.4 fL 80-94 [facility] Hematocrit Auto (Bld) [Volum e fraction]Ordered By: Aura Sky on 03-03-2023 Hematocrit (Bld) [Volume fraction] 32.8 % 40-54 [facility] Laboratory - Chemistry and C hemistry - challengeOrdered By: Aura Sky on 03-03-2023 CO2 [Moles/Vol] 31.0 mmol/L 21.0-32.0 [facility] Urea nitrogen/Creatinine [Mass ratio] 9.4 mg/mg 10-20 [facility] Laboratory - Hematology and Cell countsOrdered By: Aura Sky on 03-03-2023 Erythrocyte distribution width (RBC) [Entitic vol] 43.0 fL 35.1-43.9 [facility] Erythrocyte distribution width (RBC) [Ratio] 13.0 % 11.6-14.6 [facility] MCH (RBC) [Entitic mass] 28.7 pg 27.0-32.0 [facility] MCHC Auto (RBC) [Mass/Vol]Or dered By: Aura Sky on 03-03-2023 MCHC (RBC) [Mass/Vol] 31.7 g/dL 32-36 [facility] No Panel InformationOrdered By: Aura Sky on 03-03-2023 Estimated GFR (MDRD) Amer 54 mL/min >60 [facility] Comment on above: GFR Calc Estimated GFR (MDRD) Non-Af Amer 45 mL/min >60 [facility] Comment on above: Non- GFR Calc Platelets bldOrdered By: Doe Sky on 03-03-2023 Platelets (Bld) [#/Vol] 233 10*3/uL 150-450 [facility] Serum or plasma calcium maria l urement (mass/volume)Ordered By: Aura Sky on 03-03-2023 Calcium [Mass/Vol] 8.4 mg/dL 8.5-10.1 [facility] Serum or plasma creatinine m easurement (mass/volume)Ordered By: Aura Sky on 03-03-2023 Creatinine [Mass/Vol] 1.60 mg/dL 0.70-1.30 [facility] Comment on above: The validity of the calculated GFR & GFRAA in patients over 70 years has not been determined. Clinical correlation is essential. Serum or plasma urea nitroge n measurement (mass/volume)Ordered By: Aura Sky on 03-03-2023 Urea nitrogen [Mass/Vol] 15 mg/dL 7-18 [facility] Thin prep Papanicolaou smear with manual screeningOrdered By: Aura Sky on 03-03-2023 Thin prep Papanicolaou smear with manual screening 2 5-15 [facility] Basophil percentageOrdered B y: Aura Sky on 01-01-2023 Chloride [Moles/Vol] 101 mmol/L 98-107 [facility] Glucose [Mass/Vol] 95 mg/dL 74-106 [facility] Potassium [Moles/Vol] 4.4 mmol/L 3.5-5.1 [facility] Sodium [Moles/Vol] 134 mmol/L 136-145 [facility] WBC (Bld) [#/Vol] 6.2 10*3/uL 4.4-11.0 [facility] Blood erythrocytes count (nu mber/volume)Ordered By: Aura Sky on 01-01-2023 RBC (Bld) [#/Vol] 3.74 10*6/uL 4.6-6.2 [facility] Blood hemoglobin measurement (mass/volume)Ordered By: Aura Sky on 01-01-2023 Hemoglobin (Bld) [Mass/Vol] 11.0 g/dL 13.0-16.5 [facility] Blood platelet mean volumeOr dered By: Aura Sky on 01-01-2023 Platelet mean volume (Bld) [Entitic vol] 10.3 fL 6.2-12.0 [facility] Determination of erythrocyte mean corpuscular volume (MCV)Ordered By: Aura Sky on 01-01-2023 MCV (RBC) [Entitic vol] 90.4 fL 80-94 [facility] Hematocrit Auto (Bld) [Volum e fraction]Ordered By: Aura Sky on 01-01-2023 Hematocrit (Bld) [Volume fraction] 33.8 % 40-54 [facility] Laboratory - Chemistry and C hemistry - challengeOrdered By: Aura Sky on 01-01-2023 CO2 [Moles/Vol] 31.0 mmol/L 21.0-32.0 [facility] Urea nitrogen/Creatinine [Mass ratio] 11.7 mg/mg 10-20 [facility] Laboratory - Hematology and Cell countsOrdered By: Aura Sky on 01-01-2023 Erythrocyte distribution width (RBC) [Entitic vol] 44.6 fL 35.1-43.9 [facility] Erythrocyte distribution width (RBC) [Ratio] 13.6 % 11.6-14.6 [facility] MCH (RBC) [Entitic mass] 29.4 pg 27.0-32.0 [facility] MCHC Auto (RBC) [Mass/Vol]Or dered By: Aura Sky on 01-01-2023 MCHC (RBC) [Mass/Vol] 32.5 g/dL 32-36 [facility] No Panel InformationOrdered By: Aura Sky on 01-01-2023 Estimated GFR (MDRD) Amer 53 mL/min >60 [facility] Comment on above: GFR Calc Estimated GFR (MDRD) Non-Af Amer 44 mL/min >60 [facility] Comment on above: Non- GFR Calc Platelets bldOrdered By: Doe Sky on 01-01-2023 Platelets (Bld) [#/Vol] 225 10*3/uL 150-450 [facility] Serum or plasma calcium maria l urement (mass/volume)Ordered By: Aura Sky on 01-01-2023 Calcium [Mass/Vol] 8.3 mg/dL 8.5-10.1 [facility] Serum or plasma creatinine m easurement (mass/volume)Ordered By: Aura Sky on 01-01-2023 Creatinine [Mass/Vol] 1.63 mg/dL 0.70-1.30 [facility] Comment on above: The validity of the calculated GFR & GFRAA in patients over 70 years has not been determined. Clinical correlation is essential. Serum or plasma urea nitroge n measurement (mass/volume)Ordered By: Aura Sky on 01-01-2023 Urea nitrogen [Mass/Vol] 19 mg/dL 7-18 [facility] Thin prep Papanicolaou smear with manual screeningOrdered By: Aura Sky on 01-01-2023 Thin prep Papanicolaou smear with manual screening 2 5-15 [facility] Basophil percentageOrdered B y: Aura Sky on 12-02-2022 Chloride [Moles/Vol] 99 mmol/L 98-107 [facility] Cholesterol [Mass/Vol] 132 mg/dL <[address] [facility] Comment on above: <200 mg/dL Desirable 200-240 mg/dL Borderline >240 mg/dL High Risk Glucose [Mass/Vol] 103 mg/dL 74-106 [facility] Comment on above: Fasting Glucose resu lt from 100 to 125 mg/dL suggests IMPAIRED HOMEOSTASIS per A.D.A. criteria. Potassium [Moles/Vol] 4.2 mmol/L 3.5-5.1 [facility] Sodium [Moles/Vol] 133 mmol/L 136-145 [facility] Triglyceride [Mass/Vol] 81 mg/dL <199 [facility] Comment on above: The drugs N-Acetylcy steine and Metamizole may falsely depress this assay.Serum Triglycerides Reference Interval Normal <150 mg/dL Borderline high 150 - 199 mg/dL High 200 - 499 mg/dL Very High > or = 500 mg/dL WBC (Bld) [#/Vol] 6.2 10*3/uL 4.4-11.0 [facility] Blood erythrocytes count (nu mber/volume)Ordered By: Aura Sky on 12-02-2022 RBC (Bld) [#/Vol] 3.89 10*6/uL 4.6-6.2 [facility] Blood hemoglobin measurement (mass/volume)Ordered By: Aura Sky on 12-02-2022 Hemoglobin (Bld) [Mass/Vol] 11.5 g/dL 13.0-16.5 [facility] Blood platelet mean volumeOr dered By: Aura Sky on 12-02-2022 Platelet mean volume (Bld) [Entitic vol] 10.2 fL 6.2-12.0 [facility] Determination of erythrocyte mean corpuscular volume (MCV)Ordered By: Aura Sky on 12-02-2022 MCV (RBC) [Entitic vol] 90.5 fL 80-94 [facility] Hematocrit Auto (Bld) [Volum e fraction]Ordered By: Aura Sky on 12-02-2022 Hematocrit (Bld) [Volume fraction] 35.2 % 40-54 [facility] Laboratory - Chemistry and C hemistry - challengeOrdered By: Aura Sky on 12-02-2022 CO2 [Moles/Vol] 30.0 mmol/L 21.0-32.0 [facility] Cobalamin (Vitamin B12) [Mass/Vol] 1096 pg/mL 211-911 [facility] Urea nitrogen/Creatinine [Mass ratio] 13.0 mg/mg 10-20 [facility] Laboratory - Hematology and Cell countsOrdered By: Aura Sky on 12-02-2022 Erythrocyte distribution width (RBC) [Entitic vol] 43.3 fL 35.1-43.9 [facility] Erythrocyte distribution width (RBC) [Ratio] 13.2 % 11.6-14.6 [facility] MCH (RBC) [Entitic mass] 29.6 pg 27.0-32.0 [facility] MCHC Auto (RBC) [Mass/Vol]Or dered By: Aura Sky on 12-02-2022 MCHC (RBC) [Mass/Vol] 32.7 g/dL 32-36 [facility] No Panel InformationOrdered By: Aura Sky on 12-02-2022 Estimated GFR (MDRD) Amer 57 mL/min >60 [facility] Comment on above: GFR Calc Estimated GFR (MDRD) Non-Af Amer 47 mL/min >60 [facility] Comment on above: Non- GFR Calc Thyroid Stimulating Hormone (TSH) 1.12 uIU/mL 0.358-3.74 [facility] Platelets bldOrdered By: Doe Sky on 12-02-2022 Platelets (Bld) [#/Vol] 278 10*3/uL 150-450 [facility] Serum or plasma calcium maria l urement (mass/volume)Ordered By: Aura Sky on 12-02-2022 Calcium [Mass/Vol] 8.3 mg/dL 8.5-10.1 [facility] Serum or plasma cholesterol in HDL measurement (mass/volume)Ordered By: Aura Sky on 12-02-2022 Cholesterol in HDL [Mass/Vol] 46 mg/dL >40 [facility] Comment on above: The drugs N-Acetylcy steine and Metamizole may falsely depress this assay. Reference Range HDL <40 mg/dL Low HDL Cholesterol HDL >or= 60 mg/dL High HDL Cholesterol Serum or plasma cholesterol in VLDL measurement (mass/volume)Ordered By: Aura Sky on 12-02-2022 Cholesterol in VLDL [Mass/Vol] 16 mg/dL 5-40 [facility] Serum or plasma creatinine m easurement (mass/volume)Ordered By: Aura Sky on 12-02-2022 Creatinine [Mass/Vol] 1.54 mg/dL 0.70-1.30 [facility] Comment on above: The validity of the calculated GFR & GFRAA in patients over 70 years has not been determined. Clinical correlation is essential. Serum or plasma low density lipoprotein (LDL) cholesterol measurement (mass/volume)Ordered By: Aura Sky on 12-02-2022 Cholesterol in LDL [Mass/Vol] 70 mg/dL 0-130 [facility] Serum or plasma urea nitroge n measurement (mass/volume)Ordered By: Aura Sky on 12-02-2022 Urea nitrogen [Mass/Vol] 20 mg/dL 7-18 [facility] Thin prep Papanicolaou smear with manual screeningOrdered By: Aura Sky on 12-02-2022 Thin prep Papanicolaou smear with manual screening 4 5-15 [facility] Whole blood hemoglobin A1c/t otal hemoglobin ratio (mass fraction)Ordered By: Aura Sky on 12-02-2022 HbA1c (Bld) [Mass fraction] 5.9 % 3.8-5.6 [facility] Comment on above: Normal < 5.7 % Predi abetic 5.7 - 6.4 % Diabetic >or= 6.5 % Please note range changes. Basophil percentageOrdered B y: Aura Sky on 11-02-2022 Chloride [Moles/Vol] 98 mmol/L 98-107 [facility] Glucose [Mass/Vol] 146 mg/dL 74-106 [facility] Comment on above: Fasting Glucose resu lt greater than or equal to 126 mg/dL suggests DIABETES MELLITUS per A.D.A. criteria. Potassium [Moles/Vol] 4.1 mmol/L 3.5-5.1 [facility] Sodium [Moles/Vol] 131 mmol/L 136-145 [facility] WBC (Bld) [#/Vol] 5.9 10*3/uL 4.4-11.0 [facility] Blood erythrocytes count (nu mber/volume)Ordered By: Aura Sky on 11-02-2022 RBC (Bld) [#/Vol] 3.51 10*6/uL 4.6-6.2 [facility] Blood hemoglobin measurement (mass/volume)Ordered By: Aura Sky on 11-02-2022 Hemoglobin (Bld) [Mass/Vol] 10.2 g/dL 13.0-16.5 [facility] Blood platelet mean volumeOr dered By: Aura Sky on 11-02-2022 Platelet mean volume (Bld) [Entitic vol] 10.9 fL 6.2-12.0 [facility] Determination of erythrocyte mean corpuscular volume (MCV)Ordered By: Aura Sky on 11-02-2022 MCV (RBC) [Entitic vol] 88.3 fL 80-94 [facility] Hematocrit Auto (Bld) [Volum e fraction]Ordered By: Aura Sky on 11-02-2022 Hematocrit (Bld) [Volume fraction] 31.0 % 40-54 [facility] Laboratory - Chemistry and C hemistry - challengeOrdered By: Aura Sky on 11-02-2022 CO2 [Moles/Vol] 29.0 mmol/L 21.0-32.0 [facility] Urea nitrogen/Creatinine [Mass ratio] 10.5 mg/mg 10-20 [facility] Laboratory - Hematology and Cell countsOrdered By: Aura Sky on 11-02-2022 Erythrocyte distribution width (RBC) [Entitic vol] 41.5 fL 35.1-43.9 [facility] Erythrocyte distribution width (RBC) [Ratio] 12.9 % 11.6-14.6 [facility] MCH (RBC) [Entitic mass] 29.1 pg 27.0-32.0 [facility] MCHC Auto (RBC) [Mass/Vol]Or dered By: Aura Sky on 11-02-2022 MCHC (RBC) [Mass/Vol] 32.9 g/dL 32-36 [facility] No Panel InformationOrdered By: Aura Sky on 11-02-2022 Estimated GFR (MDRD) Amer 62 mL/min >60 [facility] Comment on above: GFR Calc Estimated GFR (MDRD) Non-Af Amer 51 mL/min >60 [facility] Comment on above: Non- GFR Calc Platelets bldOrdered By: Doe Sky on 11-02-2022 Platelets (Bld) [#/Vol] 230 10*3/uL 150-450 [facility] Serum or plasma calcium maria l urement (mass/volume)Ordered By: Aura Sky on 11-02-2022 Calcium [Mass/Vol] 8.0 mg/dL 8.5-10.1 [facility] Serum or plasma creatinine m easurement (mass/volume)Ordered By: Aura Sky on 11-02-2022 Creatinine [Mass/Vol] 1.43 mg/dL 0.70-1.30 [facility] Comment on above: The validity of the calculated GFR & GFRAA in patients over 70 years has not been determined. Clinical correlation is essential. Serum or plasma urea nitroge n measurement (mass/volume)Ordered By: Aura Sky on 11-02-2022 Urea nitrogen [Mass/Vol] 15 mg/dL 7-18 [facility] Thin prep Papanicolaou smear with manual screeningOrdered By: Aura Sky on 11-02-2022 Thin prep Papanicolaou smear with manual screening 4 5-15 [facility] Basophil percentageOrdered B y: Aura Sky on 10-07-2022 Chloride [Moles/Vol] 101 mmol/L 98-107 [facility] Glucose [Mass/Vol] 79 mg/dL 74-106 [facility] Potassium [Moles/Vol] 4.6 mmol/L 3.5-5.1 [facility] Sodium [Moles/Vol] 133 mmol/L 136-145 [facility] WBC (Bld) [#/Vol] 6.2 10*3/uL 4.4-11.0 [facility] Blood erythrocytes count (nu mber/volume)Ordered By: Aura Sky on 10-07-2022 RBC (Bld) [#/Vol] 3.69 10*6/uL 4.6-6.2 [facility] Blood hemoglobin measurement (mass/volume)Ordered By: Aura Sky on 10-07-2022 Hemoglobin (Bld) [Mass/Vol] 10.8 g/dL 13.0-16.5 [facility] Blood platelet mean volumeOr dered By: Aura Sky on 10-07-2022 Platelet mean volume (Bld) [Entitic vol] 10.8 fL 6.2-12.0 [facility] Determination of erythrocyte mean corpuscular volume (MCV)Ordered By: Aura Sky on 10-07-2022 MCV (RBC) [Entitic vol] 89.2 fL 80-94 [facility] Hematocrit Auto (Bld) [Volum e fraction]Ordered By: Aura Sky on 10-07-2022 Hematocrit (Bld) [Volume fraction] 32.9 % 40-54 [facility] Laboratory - Chemistry and C hemistry - challengeOrdered By: Aura Sky on 10-07-2022 CO2 [Moles/Vol] 26.0 mmol/L 21.0-32.0 [facility] Urea nitrogen/Creatinine [Mass ratio] 13.1 mg/mg 10-20 [facility] Laboratory - Hematology and Cell countsOrdered By: Aura Sky on 10-07-2022 Erythrocyte distribution width (RBC) [Entitic vol] 42.9 fL 35.1-43.9 [facility] Erythrocyte distribution width (RBC) [Ratio] 13.2 % 11.6-14.6 [facility] [place] [facility] (RBC) [Entitic mass] 29.3 pg 27.0-32.0 [facility] MCHC Auto (RBC) [Mass/Vol]Or dered By: Aura Sky on 10-07-2022 MCHC (RBC) [Mass/Vol] 32.8 g/dL 32-36 [facility] No Panel InformationOrdered By: Aura Sky on 10-07-2022 Estimated GFR (MDRD) Amer 61 mL/min >60 [facility] Comment on above: GFR Calc Estimated GFR (MDRD) Non-Af Amer 50 mL/min >60 [facility] Comment on above: Non- GFR Calc Platelets bldOrdered By: Doe Sky on 10-07-2022 Platelets (Bld) [#/Vol] 215 10*3/uL 150-450 [facility] Serum or plasma calcium maria l urement (mass/volume)Ordered By: Aura Sky on 10-07-2022 Calcium [Mass/Vol] 8.1 mg/dL 8.5-10.1 [facility] Serum or plasma creatinine m easurement (mass/volume)Ordered By: Aura Sky on 10-07-2022 Creatinine [Mass/Vol] 1.45 mg/dL 0.70-1.30 [facility] Comment on above: The validity of the calculated GFR & GFRAA in patients over 70 years has not been determined. Clinical correlation is essential. Serum or plasma urea nitroge n measurement (mass/volume)Ordered By: Aura Sky on 10-07-2022 Urea nitrogen [Mass/Vol] 19 mg/dL 7-18 [facility] Thin prep Papanicolaou smear with manual screeningOrdered By: Aura Sky on 10-07-2022 Thin prep Papanicolaou smear with manual screening 6 5-15 [facility] Basophil percentageOrdered B y: Aura Sky on 10-05-2022 Chloride [Moles/Vol] 97 mmol/L 98-107 [facility] Glucose [Mass/Vol] 101 mg/dL 74-106 [facility] Comment on above: Fasting Glucose resu lt from 100 to 125 mg/dL suggests IMPAIRED HOMEOSTASIS per A.D.A. criteria. Potassium [Moles/Vol] 4.5 mmol/L 3.5-5.1 [facility] Comment on above: Slight Hemolysis, Re sult may be falsely increased. Sodium [Moles/Vol] 132 mmol/L 136-145 [facility] WBC (Bld) [#/Vol] 8.1 10*3/uL 4.4-11.0 [facility] Blood erythrocytes count (nu mber/volume)Ordered By: Aura Sky on 10-05-2022 RBC (Bld) [#/Vol] 3.68 10*6/uL 4.6-6.2 [facility] Blood hemoglobin measurement (mass/volume)Ordered By: Aura Sky on 10-05-2022 Hemoglobin (Bld) [Mass/Vol] 10.7 g/dL 13.0-16.5 [facility] Blood platelet mean volumeOr dered By: Aura Sky on 10-05-2022 Platelet mean volume (Bld) [Entitic vol] 11.1 fL 6.2-12.0 [facility] Determination of erythrocyte mean corpuscular volume (MCV)Ordered By: Aura Sky on 10-05-2022 MCV (RBC) [Entitic vol] 89.4 fL 80-94 [facility] Hematocrit Auto (Bld) [Volum e fraction]Ordered By: Aura Sky on 10-05-2022 Hematocrit (Bld) [Volume fraction] 32.9 % 40-54 [facility] Laboratory - Chemistry and C hemistry - challengeOrdered By: Aura Sky on 10-05-2022 CO2 [Moles/Vol] 29.0 mmol/L 21.0-32.0 [facility] Urea nitrogen/Creatinine [Mass ratio] 10.0 mg/mg 10-20 [facility] Laboratory - Hematology and Cell countsOrdered By: Aura Sky on 10-05-2022 Erythrocyte distribution width (RBC) [Entitic vol] 42.5 fL 35.1-43.9 [facility] Erythrocyte distribution width (RBC) [Ratio] 12.9 % 11.6-14.6 [facility] MCH (RBC) [Entitic mass] 29.1 pg 27.0-32.0 [facility] MCHC Auto (RBC) [Mass/Vol]Or dered By: Aura Sky on 10-05-2022 MCHC (RBC) [Mass/Vol] 32.5 g/dL 32-36 [facility] No Panel InformationOrdered By: Aura Sky on 10-05-2022 Estimated GFR (MDRD) Amer 51 mL/min >60 [facility] Comment on above: GFR Calc Estimated GFR (MDRD) Non-Af Amer 42 mL/min >60 [facility] Comment on above: Non- GFR Calc Platelets bldOrdered By: Doe Sky on 10-05-2022 Platelets (Bld) [#/Vol] 222 10*3/uL 150-450 [facility] Serum or plasma calcium maria l urement (mass/volume)Ordered By: Aura Sky on 10-05-2022 Calcium [Mass/Vol] 8.3 mg/dL 8.5-10.1 [facility] Serum or plasma creatinine m easurement (mass/volume)Ordered By: Aura Sky on 10-05-2022 Creatinine [Mass/Vol] 1.70 mg/dL 0.70-1.30 [facility] Comment on above: The validity of the calculated GFR & GFRAA in patients over 70 years has not been determined. Clinical correlation is essential. Serum or plasma urea nitroge n measurement (mass/volume)Ordered By: Aura Sky on 10-05-2022 Urea nitrogen [Mass/Vol] 17 mg/dL 7-18 [facility] Thin prep Papanicolaou smear with manual screeningOrdered By: Aura Sky on 10-05-2022 Thin prep Papanicolaou smear with manual screening 6 5-15 [facility] Basophil percentageOrdered B y: Aura Sky on 09-03-2022 Chloride [Moles/Vol] 97 mmol/L 98-107 [facility] Glucose [Mass/Vol] 130 mg/dL 74-106 [facility] Comment on above: Fasting Glucose resu lt greater than or equal to 126 mg/dL suggests DIABETES MELLITUS per A.D.A. criteria. Potassium [Moles/Vol] 3.8 mmol/L 3.5-5.1 [facility] Sodium [Moles/Vol] 134 mmol/L 136-145 [facility] WBC (Bld) [#/Vol] 6.3 10*3/uL 4.4-11.0 [facility] Blood erythrocytes count (nu mber/volume)Ordered By: Aura Sky on 09-03-2022 RBC (Bld) [#/Vol] 3.47 10*6/uL 4.6-6.2 [facility] Blood hemoglobin measurement (mass/volume)Ordered By: Aura Sky on 09-03-2022 Hemoglobin (Bld) [Mass/Vol] 10.2 g/dL 13.0-16.5 [facility] Blood platelet mean volumeOr dered By: Aura Sky on 09-03-2022 Platelet mean volume (Bld) [Entitic vol] 11.3 fL 6.2-12.0 [facility] Determination of erythrocyte mean corpuscular volume (MCV)Ordered By: Aura Sky on 09-03-2022 MCV (RBC) [Entitic vol] 89.6 fL 80-94 [facility] Hematocrit Auto (Bld) [Volum e fraction]Ordered By: Aura Sky on 09-03-2022 Hematocrit (Bld) [Volume fraction] 31.1 % 40-54 [facility] Laboratory - Chemistry and C hemistry - challengeOrdered By: Aura Sky on 09-03-2022 CO2 [Moles/Vol] 29.0 mmol/L 21.0-32.0 [facility] Urea nitrogen/Creatinine [Mass ratio] 12.1 mg/mg 10-20 [facility] Laboratory - Hematology and Cell countsOrdered By: Aura Sky on 09-03-2022 Erythrocyte distribution width (RBC) [Entitic vol] 42.5 fL 35.1-43.9 [facility] Erythrocyte distribution width (RBC) [Ratio] 13.1 % 11.6-14.6 [facility] MCH (RBC) [Entitic mass] 29.4 pg 27.0-32.0 [facility] MCHC Auto (RBC) [Mass/Vol]Or dered By: Aura Sky on 09-03-2022 MCHC (RBC) [Mass/Vol] 32.8 g/dL 32-36 [facility] No Panel InformationOrdered By: Aura Sky on 09-03-2022 Estimated GFR (MDRD) Amer 59 mL/min >60 [facility] Comment on above: GFR Calc Estimated GFR (MDRD) Non-Af Amer 49 mL/min >60 [facility] Comment on above: Non- GFR Calc Platelets bldOrdered By: Doe Sky on 09-03-2022 Platelets (Bld) [#/Vol] 212 10*3/uL 150-450 [facility] Serum or plasma calcium maria l urement (mass/volume)Ordered By: Aura Sky on 09-03-2022 Calcium [Mass/Vol] 8.0 mg/dL 8.5-10.1 [facility] Serum or plasma creatinine m easurement (mass/volume)Ordered By: Aura Sky on 09-03-2022 Creatinine [Mass/Vol] 1.49 mg/dL 0.70-1.30 [facility] Comment on above: The validity of the calculated GFR & GFRAA in patients over 70 years has not been determined. Clinical correlation is essential. Serum or plasma urea nitroge n measurement (mass/volume)Ordered By: Aura Sky on 09-03-2022 Urea nitrogen [Mass/Vol] 18 mg/dL 7-18 [facility] Thin prep Papanicolaou smear with manual screeningOrdered By: Aura Sky on 09-03-2022 Thin prep Papanicolaou smear with manual screening 8 5-15 [facility] Basophil percentageOrdered B y: Aura Sky on 08-04-2022 Chloride [Moles/Vol] 97 mmol/L 98-107 [facility] Glucose [Mass/Vol] 109 mg/dL 74-106 [facility] Comment on above: Fasting Glucose resu lt from 100 to 125 mg/dL suggests IMPAIRED HOMEOSTASIS per A.D.A. criteria. Potassium [Moles/Vol] 4.1 mmol/L 3.5-5.1 [facility] Sodium [Moles/Vol] 131 mmol/L 136-145 [facility] WBC (Bld) [#/Vol] 7.6 10*3/uL 4.4-11.0 [facility] Blood erythrocytes count (nu mber/volume)Ordered By: Aura Sky on 08-04-2022 RBC (Bld) [#/Vol] 3.88 10*6/uL 4.6-6.2 [facility] Blood hemoglobin measurement (mass/volume)Ordered By: Aura Sky on 08-04-2022 Hemoglobin (Bld) [Mass/Vol] 11.1 g/dL 13.0-16.5 [facility] Blood platelet mean volumeOr dered By: Aura Sky on 08-04-2022 Platelet mean volume (Bld) [Entitic vol] 10.7 fL 6.2-12.0 [facility] Determination of erythrocyte mean corpuscular volume (MCV)Ordered By: Aura Sky on 08-04-2022 MCV (RBC) [Entitic vol] 88.9 fL 80-94 [facility] Hematocrit Auto (Bld) [Volum e fraction]Ordered By: Aura Sky on 08-04-2022 Hematocrit (Bld) [Volume fraction] 34.5 % 40-54 [facility] Laboratory - Chemistry and C hemistry - challengeOrdered By: Aura Sky on 08-04-2022 CO2 [Moles/Vol] 29.0 mmol/L 21.0-32.0 [facility] Urea nitrogen/Creatinine [Mass ratio] 13.3 mg/mg 10-20 [facility] Laboratory - Hematology and Cell countsOrdered By: Aura Sky on 08-04-2022 Erythrocyte distribution width (RBC) [Entitic vol] 43.9 fL 35.1-43.9 [facility] Erythrocyte distribution width (RBC) [Ratio] 13.4 % 11.6-14.6 [facility] MCH (RBC) [Entitic mass] 28.6 pg 27.0-32.0 [facility] MCHC Auto (RBC) [Mass/Vol]Or dered By: Aura Sky on 08-04-2022 MCHC (RBC) [Mass/Vol] 32.2 g/dL 32-36 [facility] No Panel InformationOrdered By: Aura Sky on 08-04-2022 Estimated GFR (MDRD) Amer 58 mL/min >60 [facility] Comment on above: GFR Calc Estimated GFR (MDRD) Non-Af Amer 48 mL/min >60 [facility] Comment on above: Non- GFR Calc Platelets bldOrdered By: Doe Sky on 08-04-2022 Platelets (Bld) [#/Vol] 271 10*3/uL 150-450 [facility] Serum or plasma calcium maria l urement (mass/volume)Ordered By: Aura Sky on 08-04-2022 Calcium [Mass/Vol] 8.3 mg/dL 8.5-10.1 [facility] Serum or plasma creatinine m easurement (mass/volume)Ordered By: Aura Sky on 08-04-2022 Creatinine [Mass/Vol] 1.50 mg/dL 0.70-1.30 [facility] Comment on above: The validity of the calculated GFR & GFRAA in patients over 70 years has not been determined. Clinical correlation is essential. Serum or plasma urea nitroge n measurement (mass/volume)Ordered By: Aura Sky on 08-04-2022 Urea nitrogen [Mass/Vol] 20 mg/dL 7-18 [facility] Thin prep Papanicolaou smear with manual screeningOrdered By: Aura Sky on 08-04-2022 Thin prep Papanicolaou smear with manual screening 5 5-15 [facility] Basophil percentageOrdered B y: Aura Sky on 07-06-2022 Chloride [Moles/Vol] 101 mmol/L 98-107 [facility] Glucose [Mass/Vol] 98 mg/dL 74-106 [facility] Potassium [Moles/Vol] 4.1 mmol/L 3.5-5.1 [facility] Sodium [Moles/Vol] 135 mmol/L 136-145 [facility] WBC (Bld) [#/Vol] 6.8 10*3/uL 4.4-11.0 [facility] Blood erythrocytes count (nu mber/volume)Ordered By: Aura Sky on 07-06-2022 RBC (Bld) [#/Vol] 3.40 10*6/uL 4.6-6.2 [facility] Blood hemoglobin measurement (mass/volume)Ordered By: Aura Sky on 07-06-2022 Hemoglobin (Bld) [Mass/Vol] 10.3 g/dL 13.0-16.5 [facility] Blood platelet mean volumeOr dered By: Aura Sky on 07-06-2022 Platelet mean volume (Bld) [Entitic vol] 11.3 fL 6.2-12.0 [facility] Determination of erythrocyte mean corpuscular volume (MCV)Ordered By: Aura Sky on 07-06-2022 MCV (RBC) [Entitic vol] 89.7 fL 80-94 [facility] Hematocrit Auto (Bld) [Volum e fraction]Ordered By: Aura Sky on 07-06-2022 Hematocrit (Bld) [Volume fraction] 30.5 % 40-54 [facility] Laboratory - Chemistry and C hemistry - challengeOrdered By: Aura Sky on 07-06-2022 CO2 [Moles/Vol] 32.0 mmol/L 21.0-32.0 [facility] Urea nitrogen/Creatinine [Mass ratio] 10.3 mg/mg 10-20 [facility] Laboratory - Hematology and Cell countsOrdered By: Aura Sky on 07-06-2022 Erythrocyte distribution width (RBC) [Entitic vol] 44.7 fL 35.1-43.9 [facility] Erythrocyte distribution width (RBC) [Ratio] 13.6 % 11.6-14.6 [facility] MCH (RBC) [Entitic mass] 30.3 pg 27.0-32.0 [facility] MCHC Auto (RBC) [Mass/Vol]Or dered By: Aura Sky on 07-06-2022 MCHC (RBC) [Mass/Vol] 33.8 g/dL 32-36 [facility] No Panel InformationOrdered By: Aura Sky on 07-06-2022 Estimated GFR (MDRD) Amer 60 mL/min >60 [facility] Comment on above: GFR Calc Estimated GFR (MDRD) Non-Af Amer 50 mL/min >60 [facility] Comment on above: Non- GFR Calc Platelets bldOrdered By: Doe Sky on 07-06-2022 Platelets (Bld) [#/Vol] 234 10*3/uL 150-450 [facility] Serum or plasma calcium maria l urement (mass/volume)Ordered By: Aura Sky on 07-06-2022 Calcium [Mass/Vol] 8.0 mg/dL 8.5-10.1 [facility] Serum or plasma creatinine m easurement (mass/volume)Ordered By: Aura Sky on 07-06-2022 Creatinine [Mass/Vol] 1.46 mg/dL 0.70-1.30 [facility] Comment on above: The validity of the calculated GFR & GFRAA in patients over 70 years has not been determined. Clinical correlation is essential. Serum or plasma urea nitroge n measurement (mass/volume)Ordered By: Aura Sky on 07-06-2022 Urea nitrogen [Mass/Vol] 15 mg/dL 7-18 [facility] Thin prep Papanicolaou smear with manual screeningOrdered By: Aura Sky on 07-06-2022 Thin prep Papanicolaou smear with manual screening 2 5-15 [facility] Basophil percentageOrdered B y: Aura Sky on 06-02-2022 Chloride [Moles/Vol] 104 mmol/L 98-107 [facility] Cholesterol [Mass/Vol] 140 mg/dL <[address] [facility] Comment on above: <200 mg/dL Desirable 200-240 mg/dL Borderline >240 mg/dL High Risk Glucose [Mass/Vol] 140 mg/dL 74-106 [facility] Comment on above: Fasting Glucose resu lt greater than or equal to 126 mg/dL suggests DIABETES MELLITUS per A.D.A. criteria. Potassium [Moles/Vol] 4.2 mmol/L 3.5-5.1 [facility] Sodium [Moles/Vol] 136 mmol/L 136-145 [facility] Triglyceride [Mass/Vol] 75 mg/dL <199 [facility] Comment on above: The drugs N-Acetylcy steine and Metamizole may falsely depress this assay.Serum Triglycerides Reference Interval Normal <150 mg/dL Borderline high 150 - 199 mg/dL High 200 - 499 mg/dL Very High > or = 500 mg/dL WBC (Bld) [#/Vol] 6.5 10*3/uL 4.4-11.0 [facility] Blood erythrocytes count (nu mber/volume)Ordered By: Aura Sky on 06-02-2022 RBC (Bld) [#/Vol] 3.61 10*6/uL 4.6-6.2 [facility] Blood hemoglobin measurement (mass/volume)Ordered By: Aura Sky on 06-02-2022 Hemoglobin (Bld) [Mass/Vol] 10.6 g/dL 13.0-16.5 [facility] Blood platelet mean volumeOr dered By: Aura Sky on 06-02-2022 Platelet mean volume (Bld) [Entitic vol] 11.1 fL 6.2-12.0 [facility] CNOVon 06-02-2022 CNOV Office Visit (UROLMD ) -------- ELAINE COREA ([id number]) 1945 M Date Time Provider Department 06/02/22 [...] (no units) Date Value 01/09/2016 neg Specific [place], [facility] (no units) Date Value 01/09/2016 1.010 [...] mouth daily at bedtime. blood sugar diagnostic ([employer] ULTRA TEST) test strip Check blood sugars once a day. Levothyroxine 50 mcg cap Take 1 capsule by mouth once daily. lisinopril (ZESTRIL, PRINIVIL) 40 mg tablet Take 1 tablet by mouth once daily. lancets (SOLUS V2 LANCETS) 28 gauge [facility] Check blood sugar once daily. Dx: E11.40. [...] (HCC) 03/11/[address] 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 Normal [facility] Determination of erythrocyte mean corpuscular volume (MCV)Ordered By: Aura Sky on 06-02-2022 MCV (RBC) [Entitic vol] 90.0 fL 80-94 [facility] Hematocrit Auto (Bld) [Volum e fraction]Ordered By: Aura Sky on 06-02-2022 Hematocrit (Bld) [Volume fraction] 32.5 % 40-54 [facility] Laboratory - Chemistry and C hemistry - challengeOrdered By: Aura Sky on 06-02-2022 CO2 [Moles/Vol] 28.0 mmol/L 21.0-32.0 [facility] Cobalamin (Vitamin B12) [Mass/Vol] 856 pg/mL 211-911 [facility] Urea nitrogen/Creatinine [Mass ratio] 15.9 mg/mg 05-28 [facility] Laboratory - Hematology and Cell countsOrdered By: Aura Sky on 06-02-2022 Erythrocyte distribution width (RBC) [Entitic vol] 44.0 fL 35.1-43.9 [facility] Erythrocyte distribution width (RBC) [Ratio] 13.3 % 11.6-14.6 [facility] MCH (RBC) [Entitic mass] 29.4 pg 27.0-[facility].0 [facility] [Mass/Vol]Or dered By: Aura Sky on 06-02-2022 MCHC (RBC) [Mass/Vol] 32.6 g/dL 32-36 [facility] No Panel InformationOrdered By: Aura Sky on 06-02-2022 Estimated GFR (MDRD) Amer 71 mL/min >60 [facility] Comment on above: GFR Calc Estimated GFR (MDRD) Non-Af Amer 59 mL/min >60 [facility] Comment on above: Non- GFR Calc Thyroid Stimulating Hormone (TSH) 2.81 uIU/mL 0.358-3.74 [facility] Platelets bldOrdered By: Doe Sky on 06-02-2022 Platelets (Bld) [#/Vol] 240 10*3/uL 150-450 [facility] Serum or plasma calcium maria l urement (mass/volume)Ordered By: Aura Sky on 06-02-2022 Calcium [Mass/Vol] 8.2 mg/dL 8.5-10.1 [facility] Serum or plasma cholesterol in HDL measurement (mass/volume)Ordered By: Aura Sky on 06-02-2022 Cholesterol in HDL [Mass/Vol] 54 mg/dL >40 [facility] Comment on above: The drugs N-Acetylcy steine and Metamizole may falsely depress this assay. Reference Range HDL <40 mg/dL Low HDL Cholesterol HDL >or= 60 mg/dL High HDL Cholesterol Serum or plasma cholesterol in VLDL measurement (mass/volume)Ordered By: Aura Sky on 06-02-2022 Cholesterol in VLDL [Mass/Vol] 15 mg/dL 5-40 [facility] Serum or plasma creatinine m easurement (mass/volume)Ordered By: Aura Sky on 06-02-2022 Creatinine [Mass/Vol] 1.26 mg/dL 0.70-1.30 [facility] Comment on above: The validity of the calculated GFR & GFRAA in patients over 70 years has not been determined. Clinical correlation is essential. Serum or plasma low density lipoprotein (LDL) cholesterol measurement (mass/volume)Ordered By: Aura Sky on 06-02-2022 Cholesterol in LDL [Mass/Vol] 71 mg/dL 0-130 [facility] Serum or plasma urea nitroge n measurement (mass/volume)Ordered By: Aura Sky on 06-02-2022 Urea nitrogen [Mass/Vol] 20 mg/dL 7-18 [facility] Thin prep Papanicolaou smear with manual screeningOrdered By: Aura Sky on 06-02-2022 Thin prep Papanicolaou smear with manual screening 4 5-15 [facility] Whole blood hemoglobin A1c/t otal hemoglobin ratio (mass fraction)Ordered By: Aura Sky on 06-02-2022 HbA1c (Bld) [Mass fraction] 7.1 % 3.8-5.6 [facility] Comment on above: Normal < 5.7 % Predi abetic 5.7 - 6.4 % Diabetic >or= 6.5 % Please note range changes. Basophil percentageon 2021 Chloride [Moles/Vol] 99 mmol/L 98-107 [facility] Work Phone: Cholesterol [Mass/Vol] 120 mg/dL <[address] [facility] Work Phone: Comment on above: <200 mg/dL Desirable 200-240 mg/dL Borderline >240 mg/dL High Risk Glucose [Mass/Vol] 182 mg/dL 74-106 [facility] Work Phone: Comment on above: Fasting Glucose resu lt greater than or equal to 126 mg/dL suggests DIABETES MELLITUS per A.D.A. criteria. Potassium [Moles/Vol] 3.7 mmol/L 3.5-5.1 [facility] Work Phone: Sodium [Moles/Vol] 135 mmol/L 136-145 [facility] Work Phone: Triglyceride [Mass/Vol] 107 mg/dL <199 [facility] Work Phone: Comment on above: The drugs N-Acetylcy steine and Metamizole may falsely depress this assay.Serum Triglycerides Reference Interval Normal <150 mg/dL Borderline high 150 - 199 mg/dL High 200 - 499 mg/dL Very High > or = 500 mg/dL WBC (Bld) [#/Vol] 6.6 10*3/uL 4.4-11.0 [facility] Work Phone: Blood erythrocytes count (nu mber/volume)on 05-04-2022 RBC (Bld) [#/Vol] 3.26 10*6/uL 4.6-6.2 [facility] Work [facility]: Blood hemoglobin measurement (mass/volume)on 05-04-2022 Hemoglobin (Bld) [Mass/Vol] 9.4 g/dL 13.0-16.5 [facility] Work Phone: Blood platelet mean volumeon 05-04-2022 Platelet mean volume (Bld) [Entitic vol] 11.0 fL 6.2-12.0 [facility] Work Phone: Determination of erythrocyte mean corpuscular volume (MCV)on 05-04-2022 MCV (RBC) [Entitic vol] 91.7 fL 80-94 [facility] Work Phone: Hematocrit Auto (Bld) [Volum e fraction]on 05-04-2022 Hematocrit (Bld) [Volume fraction] 29.9 % 40-54 [facility] Work Phone: Laboratory - Chemistry and C hemistry - challengeon 05-04-2022 CO2 [Moles/Vol] 29.0 mmol/L 21.0-32.0 [facility] Work Phone: Cobalamin (Vitamin B12) [Mass/Vol] 442 pg/mL 211-911 [facility] Work Phone: Urea nitrogen/Creatinine [Mass ratio] 14.2 mg/mg 10-20 [facility] Work Phone: Laboratory - Hematology and Cell countson 05-04-2022 Erythrocyte distribution width (RBC) [Entitic vol] 45.2 fL 35.1-43.9 [facility] Work Phone: Erythrocyte distribution width (RBC) [Ratio] 13.5 % 11.6-14.6 [facility] Work Phone: MCH (RBC) [Entitic mass] 28.8 pg 27.0-32.0 [facility] Work Phone: MCHC Auto (RBC) [Mass/Vol]on 05-04-2022 MCHC (RBC) [Mass/Vol] 31.4 g/dL 32-36 [facility] Work Phone: No Panel Informationon 05-04 Estimated GFR (MDRD) Amer 76 mL/min >60 [facility] Work Phone: Comment on above: GFR Calc Estimated GFR (MDRD) Non-Af Amer 63 mL/min >60 [facility] Work Phone: Comment on above: Non- GFR Calc Thyroid Stimulating Hormone (TSH) 2.31 uIU/mL 0.358-3.74 [facility] Work Phone: Platelets bldon 05-04-2022 Platelets (Bld) [#/Vol] 256 10*3/uL 150-450 [facility] Work Phone: Serum or plasma calcium maria l urement (mass/volume)on 05-04-2022 Calcium [Mass/Vol] 8.0 mg/dL 8.5-10.1 [facility] Work Phone: Serum or plasma cholesterol in HDL measurement (mass/volume)on 05-04-2022 Cholesterol in HDL [Mass/Vol] 47 mg/dL >40 [facility] Work Phone: Comment on above: The drugs N-Acetylcy steine and Metamizole may falsely depress this assay. Reference Range HDL <40 mg/dL Low HDL Cholesterol HDL >or= 60 mg/dL High HDL Cholesterol Serum or plasma cholesterol in VLDL measurement (mass/volume)on 05-04-2022 Cholesterol in VLDL [Mass/Vol] 21 mg/dL 5-40 [facility] Work Phone: Serum or plasma creatinine m easurement (mass/volume)on 05-04-2022 Creatinine [Mass/Vol] 1.20 mg/dL 0.70-1.30 [facility] Work Phone: Comment on above: The validity of the calculated GFR & GFRAA in patients over 70 years has not been determined. Clinical correlation is essential. Serum or plasma low density lipoprotein (LDL) cholesterol measurement (mass/volume)on 05-04-2022 Cholesterol in LDL [Mass/Vol] 52 mg/dL 0-130 [facility] Work Phone: Serum or plasma urea nitroge n measurement (mass/volume)on 05-04-2022 Urea nitrogen [Mass/Vol] 17 mg/dL 7-18 [facility] Work Phone: Thin prep Papanicolaou smear with manual screeningon 05-04-2022 Thin prep Papanicolaou smear with manual screening 7 5-15 [facility] Work Phone: Whole blood hemoglobin A1c/t otal hemoglobin ratio (mass fraction)on 05-04-2022 HbA1c (Bld) [Mass fraction] 7.1 % 3.8-5.6 [facility] Work Phone: Comment on above: Normal < 5.7 % Predi abetic 5.7 - 6.4 % Diabetic >or= 6.5 % Please note range changes. Absolute lymphocyte counton 04-10-2022 Lymphocytes Auto (Unsp spec) [#/Vol] 2.55 10*3/uL 0.83-4.51 [facility] Work Phone: Basophil percentageon 2021 Basophil percentage 5-10 SEEN /hpf 0-5 [facility] Work Phone: Basophils/100 WBC (Bld) 0.2 % 0-1 [facility] Work Phone: Chloride [Moles/Vol] 100 mmol/L 98-107 [facility] Work Phone: Eosinophils/100 WBC (Bld) 1.0 % 0-5 [facility] Work Phone: Glucose [Mass/Vol] 181 mg/dL 74-106 [facility] Work Phone: Comment on above: Fasting Glucose resu lt greater than or equal to 126 mg/dL suggests DIABETES MELLITUS per A.D.A. criteria. Neutrophils (Bld) [#/Vol] 6.2 10*3/uL 2.0-7.7 [facility] Work Phone: Neutrophils/100 WBC (Bld) 62.5 % 47-70 [facility] Work Phone: Potassium [Moles/Vol] 4.4 mmol/L 3.5-5.1 [facility] Work Phone: Sodium [Moles/Vol] 133 mmol/L 136-145 [facility] Work Phone: WBC (Bld) [#/Vol] 10.0 10*3/uL 4.4-11.0 [facility] Work Phone: Bilirubin Test strip Ql (U)o n 04-10-2022 Bilirubin Ql (U) Negative Negative [facility] Work Phone: Blood erythrocytes count (nu mber/volume)on 04-10-2022 RBC (Bld) [#/Vol] 3.80 10*6/uL 4.6-6.2 [facility] Work Phone: Blood hemoglobin measurement (mass/volume)on 04-10-2022 Hemoglobin (Bld) [Mass/Vol] 11.1 g/dL 13.0-16.5 [facility] Work Phone: Blood lymphocytes/100 leukoc yteson 04-10-2022 Lymphocytes/100 WBC (Bld) 25.6 % 19-41 [facility] Work Phone: Blood monocytes/100 leukocyt eson 04-10-2022 Monocytes/100 WBC (Bld) 10.3 % 0-10 [facility] Work Phone: Blood platelet mean volumeon 04-10-2022 Platelet mean volume (Bld) [Entitic vol] 11.1 fL 6.2-12.0 [facility] Work Phone: CNOVon 04-10-2022 CNOV Office Visit (UROLMD ) -------- ELAINE COREA ([id number]) 1945 M IPA Date Time Provider Department 04/10/22 9:00 AM OUSMANE DURAND During your visit today, we recorded the following information about you: Weight Height 96 kg 1.676 m Ousmane Durand MD 04/10/2022 10:03 AM Addendum [facility] ESTABLISHED [...] last 2 years. Patient lives in a long-term facility and has his catheter changed every [...] mouth daily at bedtime. blood sugar diagnostic (Second GenomeUCH ULTRA TEST) test strip Check blood sugars [...] My final (more content not included)... Normal [facility] Determination of erythrocyte mean corpuscular volume (MCV)on 04-10-2022 MCV (RBC) [Entitic vol] 88.9 fL 80-94 [facility] Work Phone: Glucose Glucometer (BldC) [M ass/Vol]on 04-10-2022 Glucose [Mass/Vol] 102 mg/dL 74-106 [facility] Work Phone: Comment on above: MANAGEMENT OF PATIEN T CARE PER NURSING PROTOCOL Hematocrit Auto (Bld) [Volum e fraction]on 04-10-2022 Hematocrit (Bld) [Volume fraction] 33.8 % 40-54 [facility] Work Phone: Ketones Test strip Ql (U)on 04-10-2022 Ketones Ql (U) Negative Negative [facility] Work Phone: Laboratory - Chemistry and C hemistry - challengeon 04-10-2022 CO2 [Moles/Vol] 27.0 mmol/L 21.0-32.0 [facility] Work Phone: Urea nitrogen/Creatinine [Mass ratio] 16.2 mg/mg 10-20 [facility] Work Phone: Laboratory - Drug toxicology on 04-10-2022 Amphetamines Ql (U) Negative <1000 ng[facility]: Benzodiazepines Ql (U) Negative < 200 ng/mL [facility] Work Phone: Cannabinoids Screen Ql (U) Negative < 50 ng/mL [facility] Work Phone: Cocaine Ql (U) Negative < 300 ng/mL [facility] Work Phone: Opiates Ql (U) Negative < 300 ng/mL [facility] Work Phone: Laboratory - Hematology and Cell countson 04-10-2022 Erythrocyte distribution width (RBC) [Entitic vol] 43.7 fL 35.1-43.9 [facility] Work Phone: Erythrocyte distribution width (RBC) [Ratio] 13.4 % 11.6-14.6 [facility] Work Phone: Immature granulocytes/100 WBC (Bld) 0.400 % 0.0-0.9 [facility] Work Phone: Comment on above: IG% - Immature Granu locytes (promyelocytes, myelocytes and metamyelocytes) > 1% indicates that a LEFT SHIFT is Present. MCH (RBC) [Entitic mass] 29.2 pg 27.0-32.0 [facility] Work Phone: Nucleated RBC/100 WBC (Bld) [Ratio] 0 % 0-5 [facility] Work Phone: MCHC Auto (RBC) [Mass/Vol]on 04-10-2022 MCHC (RBC) [Mass/Vol] 32.8 g/dL 32-36 [facility] Work Phone: Magnesium ammonium phosphate crystal detectionon 04-10-2022 Triple phosphate crystals LM Ql (Urine sed) 4+ /hpf [facility] Work Phone: Mucus LM Ql (Urine sed)on Mucus Ql (Urine sed) 0 SEEN /hpf [facility] Work Phone: Nitrite Test strip Ql (U)on 04-10-2022 Nitrite Ql (U) Negative Negative [facility] Work Phone: No Panel Informationon 04-10 Estimated Creatinine Clearance Calc 38.32 ml/min [facility] Work Phone: Estimated GFR (MDRD) Amer 59 mL/min >60 [facility] Work Phone: Comment on above: GFR Calc Estimated GFR (MDRD) Non-Af Amer 49 mL/min >60 [facility] Work Phone: Comment on above: Non- GFR Calc Ethyl Alcohol Level 7.0 mg/dL [facility] Work Phone: Comment on above: The serum:whole bloo d ethanol ratio is approximately 1.14and varies slightly with hematocrit. Medical Alcohol reference interval and critical value innon-tolerant individuals; 50 - 100 Impairment 100 Intoxication 100 - 250 Severe Poisoning 250 - 400 Deep/possible fatal coma MDMA (Ecstasy) Screen Negative < 500 ng/mL [facility] Work Phone: Urine Barbiturates Screen Negative < 200 ng/mL [facility] Work Phone: Urine Drug Screen Comment [facility] Work Phone: Comment on above: CONFIRMATORY TESTING [...] Methadone Screen Negative < 300 ng/mL [facility] Work Phone: Platelets bldon 04-10-2022 Platelets (Bld) [#/Vol] 288 10*3/uL 150-450 [facility] Work Phone: Protein Test strip Ql (U)on 04-10-2022 Protein Ql (U) 100 mg/dl Negative [facility] Work Phone: Serum or plasma calcium maria l urement (mass/volume)on 04-10-2022 Calcium [Mass/Vol] 8.4 mg/dL 8.5-10.1 [facility] Work Phone: Serum or plasma creatinine m easurement (mass/volume)on 04-10-2022 Creatinine [Mass/Vol] 1.48 mg/dL 0.70-1.30 [facility] Work Phone: Comment on above: The validity of the calculated GFR & GFRAA in patients over 70 years has not been determined. Clinical correlation is essential. Serum or plasma urea nitroge n measurement (mass/volume)on 04-10-2022 Urea nitrogen [Mass/Vol] 24 mg/dL 7-18 [facility] Work Phone: Squamous epithelial cells de tection in urine sediment by light microscopyon 04-10-2022 Epithelial cells.squamous LM Ql (Urine sed) 5-10 SEEN /hpf 0-5 [facility] Work Phone: Thin prep Papanicolaou smear with manual screeningon 04-10-2022 Thin prep Papanicolaou smear with manual screening 6 5-15 [facility] Work Phone: Urine blood detectionon RBC Ql (U) 150 /ul Negative [facility] Work Phone: RBC Ql (U) 5-10 SEEN /hpf 0-5 [facility] Work Phone: Urine clarityon 04-10-2022 Clarity (U) Cloudy Clear [facility] Work Phone: Urine color determinationon 04-10-2022 Color (U) Yellow Yellow [facility] Work Phone: Urine glucose detectionon Glucose Ql (U) Normal mg/dl Normal [facility] Work Phone: Urine leukocyte esterase det ection by dipstickon 04-10-2022 Leukocyte esterase Test strip Ql (U) 500 /ul Negative [facility] Work Phone: Urine pHon 04-10-2022 pH (U) 8.0 [pH] 5.0 - 8.0 [facility] Work Phone: Urine phencyclidine (PCP) de tectionon 04-10-2022 Phencyclidine Ql (U) Negative < 25 ng/mL [facility] Work Phone: Urine sediment bacteria coun t by microscopy (number/high power field)on 04-10-2022 Bacteria LM.HPF (Urine sed) [#/Area] 2 /[HPF] None Seen [facility] Work Phone: Urine specific gravity measu rementon 04-10-2022 Specific gravity (U) [Rel density] 1.010 1.002-1.030 [facility] Work Phone: Urobilinogen Auto test strip Ql (U)on 04-10-2022 Urobilinogen Ql (U) Normal mg/dl Normal [facility] Work Phone: Basophil percentageon 2021 Chloride [Moles/Vol] 106 mmol/L 98-107 [facility] Work Phone: Glucose [Mass/Vol] 96 mg/dL 74-106 [facility] Work Phone: Potassium [Moles/Vol] 3.9 mmol/L 3.5-5.1 [facility] Work Phone: Sodium [Moles/Vol] 138 mmol/L 136-145 [facility] Work Phone: WBC (Bld) [#/Vol] 6.5 10*3/uL 4.4-11.0 [facility] Work Phone: Blood erythrocytes count (nu mber/volume)on 04-03-2022 RBC (Bld) [#/Vol] 3.71 10*6/uL 4.6-6.2 [facility] Work Phone: Blood hemoglobin measurement (mass/volume)on 04-03-2022 Hemoglobin (Bld) [Mass/Vol] 11.0 g/dL 13.0-16.5 [facility] Work Phone: Blood platelet mean volumeon 04-03-2022 Platelet mean volume (Bld) [Entitic vol] 11.3 fL 6.2-12.0 [facility] Work Phone: CNPNon 04-03-2022 CNPN Telephone (UROLWS) -------- ELAINE COREA ([id number]) 1945 M IPA Date Time Provider Department 04/03/22 FITZ RANGEL During your visit today, we recorded the following information about you: Guerita Reid RN 04/03/2022 9:48 AM Signed nurse uDran with [facility] calling. States pt. wants to discuss getting suprapubic cath placed. Wants to know where he would have this procedure done at? Pt. also has other urinary related questions that he would like answered. This nurse advised that pt come in for in person appointment to have all questions answered. Duran would like a call back with appt. time. Please call him at [phone] x [phone]. OLINDA Patel PA-C 04/03/2022 9:54 AM Signed Needs a Staff Urologist who does the SPT procedure, closest would be [facility] they will require a in-person visit and discussion with patient. They can call them direct , I am not familiar with who can do the surgery but I am sure there are 3-4 at least there. Fitz Rangel, ELENA, CT, PAMayra Verma LPN 04/03/2022 10:15 AM Signed Called Duran. No answer- left message. Verified name and date of . Guerita Reid RN 04/03/2022 10:16 AM Signed Called Duran, notified him of below information. States he plans to call Dr. Sosa in [place] and set up appt with him. Will consider having pt. see Fitz for any future urology needs. Guerita Reid RN Allergies As of Date: 04/03/2022 Noted Allergy Reaction MAXZIDE (TRIAMTERENE-HYDROCHLORO T*04/17/2016 14 - Other: See Comments Comments: Hyponatremia Date Reviewed: 09/20/2020 Reviewed by: Fitz (Charles) Saul - Fully Assessed Reason for Visit: Patient Question [[id number]] Prescriptions as of 04/03/2022 - BISACODYL RECTAL [...] daily at bedtime. - blood sugar diagnostic (Min[employer]ightsWorld[employer].comTOUCH ULTRA TEST) test strip Check blood sugars once a day. - Levothyroxine 50 mcg cap Take 1 capsule by mouth once daily. - lisinopril (ZESTRIL, PRINIVIL) 40 mg tablet Take 1 tablet by mouth once daily. - amLODIPine (NORVASC) 10 mg tablet Take 1 tablet by mouth once daily. - lancets (SOLUS V2 LANCETS) 28 gauge [facility] Check blood sugar once daily. Dx: E11.40. [...] hypothyroidism [E03.9] (more content not included)... Normal [facility] Determination of erythrocyte mean corpuscular volume (MCV)on 04-03-2022 MCV (RBC) [Entitic vol] 90.3 fL 80-94 [facility] Work Phone: Hematocrit Auto (Bld) [Volum e fraction]on 04-03-2022 Hematocrit (Bld) [Volume fraction] 33.5 % 40-54 [facility] Work Phone: Laboratory - Chemistry and C hemistry - challengeon 04-03-2022 CO2 [Moles/Vol] 28.0 mmol/L 21.0-32.0 [facility] Work Phone: Urea nitrogen/Creatinine [Mass ratio] 15.2 mg/mg 10-20 [facility] Work Phone: Laboratory - Hematology and Cell countson 04-03-2022 Erythrocyte distribution width (RBC) [Entitic vol] 45.6 fL 35.1-43.9 [facility] Work Phone: Erythrocyte distribution width (RBC) [Ratio] 13.8 % 11.6-14.6 [facility] Work Phone: MCH (RBC) [Entitic mass] 29.6 pg 27.0-32.0 [facility] Work Phone: MCHC Auto (RBC) [Mass/Vol]on 04-03-2022 MCHC (RBC) [Mass/Vol] 32.8 g/dL 32-36 [facility] Work Phone: No Panel Informationon 04-03 Estimated GFR (MDRD) Amer 72 mL/min >60 [facility] Work Phone: Comment on above: GFR Calc Estimated GFR (MDRD) Non-Af Amer 60 mL/min >60 [facility] Work Phone: Comment on above: Non- GFR Calc Platelets bldon 04-03-2022 Platelets (Bld) [#/Vol] 233 10*3/uL 150-450 [facility] Work Phone: Serum or plasma calcium maria l urement (mass/volume)on 04-03-2022 Calcium [Mass/Vol] 8.1 mg/dL 8.5-10.1 [facility] Work Phone: Serum or plasma creatinine m easurement (mass/volume)on 04-03-2022 Creatinine [Mass/Vol] 1.25 mg/dL 0.70-1.30 [facility] Work Phone: Comment on above: The validity of the calculated GFR & GFRAA in patients over 70 years has not been determined. Clinical correlation is essential. Serum or plasma urea nitroge n measurement (mass/volume)on 04-03-2022 Urea nitrogen [Mass/Vol] 19 mg/dL 7-18 [facility] Work Phone: Thin prep Papanicolaou smear with manual screeningon 04-03-2022 Thin prep Papanicolaou smear with manual screening 4 5-15 [facility] Work Phone: Basophil percentageon 2021 Chloride [Moles/Vol] 104 mmol/L 98-107 [facility] Work Phone: Glucose [Mass/Vol] 85 mg/dL 74-106 [facility] Work Phone: Potassium [Moles/Vol] 3.7 mmol/L 3.5-5.1 [facility] Work Phone: Sodium [Moles/Vol] 139 mmol/L 136-145 [facility] Work Phone: WBC (Bld) [#/Vol] 7.4 10*3/uL 4.4-11.0 [facility] Work Phone: Blood erythrocytes count (nu mber/volume)on 03-03-2022 RBC (Bld) [#/Vol] 3.56 10*6/uL 4.6-6.2 [facility] Work Phone: Blood hemoglobin measurement (mass/volume)on 03-03-2022 Hemoglobin (Bld) [Mass/Vol] 10.7 g/dL 13.0-16.5 [facility] Work Phone: Blood platelet mean volumeon 03-03-2022 Platelet mean volume (Bld) [Entitic vol] 12.2 fL 6.2-12.0 [facility] Work Phone: Determination of erythrocyte mean corpuscular volume (MCV)on 03-03-2022 MCV (RBC) [Entitic vol] 93.0 fL 80-94 [facility] Work Phone: Hematocrit Auto (Bld) [Volum e fraction]on 03-03-2022 Hematocrit (Bld) [Volume fraction] 33.1 % 40-54 [facility] Work Phone: Laboratory - Chemistry and C hemistry - challengeon 03-03-2022 CO2 [Moles/Vol] 31.0 mmol/L 21.0-32.0 [facility] Work Phone: Urea nitrogen/Creatinine [Mass ratio] 14.0 mg/mg 10-20 [facility] Work Phone: Laboratory - Hematology and Cell countson 03-03-2022 Erythrocyte distribution width (RBC) [Entitic vol] 51.8 fL 35.1-43.9 [facility] Work Phone: Erythrocyte distribution width (RBC) [Ratio] 15.0 % 11.6-14.6 [facility] Work Phone: MCH (RBC) [Entitic mass] 30.1 pg 27.0-32.0 [facility] Work Phone: MCHC Auto (RBC) [Mass/Vol]on 03-03-2022 MCHC (RBC) [Mass/Vol] 32.3 g/dL 32-36 [facility] Work Phone: No Panel Informationon 03-03 Estimated GFR (MDRD) Amer 75 mL/min >60 [facility] Work Phone: Comment on above: GFR Calc Estimated GFR (MDRD) Non-Af Amer 62 mL/min >60 [facility] Work Phone: Comment on above: Non- GFR Calc Platelets bldon 03-03-2022 Platelets (Bld) [#/Vol] 196 10*3/uL 150-450 [facility] Work Phone: Serum or plasma calcium maria l urement (mass/volume)on 03-03-2022 Calcium [Mass/Vol] 8.3 mg/dL 8.5-10.1 [facility] Work Phone: Serum or plasma creatinine m easurement (mass/volume)on 03-03-2022 Creatinine [Mass/Vol] 1.21 mg/dL 0.70-1.30 [facility] Work Phone: Comment on above: The validity of the calculated GFR & GFRAA in patients over 70 years has not been determined. Clinical correlation is essential. Serum or plasma urea nitroge n measurement (mass/volume)on 03-03-2022 Urea nitrogen [Mass/Vol] 17 mg/dL 7-18 [facility] Work Phone: Thin prep Papanicolaou smear with manual screeningon 03-03-2022 Thin prep Papanicolaou smear with manual screening 4 5-15 [facility] Work Phone: Basophil percentageon 2021 Chloride [Moles/Vol] 104 mmol/L 98-107 [facility] Work Phone: Glucose [Mass/Vol] 104 mg/dL 74-106 [facility] Work Phone: Comment on above: Fasting Glucose resu lt from 100 to 125 mg/dL suggests IMPAIRED HOMEOSTASIS per A.D.A. criteria. Potassium [Moles/Vol] 3.8 mmol/L 3.5-5.1 [facility] Work Phone: Sodium [Moles/Vol] 139 mmol/L 136-145 [facility] Work Phone: WBC (Bld) [#/Vol] 7.4 10*3/uL 4.4-11.0 [facility] Work Phone: Blood erythrocytes count (nu mber/volume)on 02-02-2022 RBC (Bld) [#/Vol] 3.64 10*6/uL 4.6-6.2 [facility] Work Phone: Blood hemoglobin measurement (mass/volume)on 02-02-2022 Hemoglobin (Bld) [Mass/Vol] 10.5 g/dL 13.0-16.5 [facility] Work Phone: Blood platelet mean volumeon 02-02-2022 Platelet mean volume (Bld) [Entitic vol] 11.6 fL 6.2-12.0 [facility] Work Phone: Determination of erythrocyte mean corpuscular volume (MCV)on 02-02-2022 MCV (RBC) [Entitic vol] 91.2 fL 80-94 [facility] Work Phone: Hematocrit Auto (Bld) [Volum e fraction]on 02-02-2022 Hematocrit (Bld) [Volume fraction] 33.2 % 40-54 [facility] Work Phone: Laboratory - Chemistry and C hemistry - challengeon 02-02-2022 CO2 [Moles/Vol] 30.0 mmol/L 21.0-32.0 [facility] Work Phone: [phone] Cobalamin (Vitamin B12) [Mass/Vol] 789 pg/mL 211-911 [facility] Work Phone: Urea nitrogen/Creatinine [Mass ratio] 11.1 mg/mg 10-20 [facility] Work Phone: Laboratory - Hematology and Cell countson 02-02-2022 Erythrocyte distribution width (RBC) [Entitic vol] 49.2 fL 35.1-43.9 [facility] Work Phone: Erythrocyte distribution width (RBC) [Ratio] 14.8 % 11.6-14.6 [facility] Work Phone: MCH (RBC) [Entitic mass] 28.8 pg 27.0-32.0 [facility] Work Phone: MCHC Auto (RBC) [Mass/Vol]on 02-02-2022 MCHC (RBC) [Mass/Vol] 31.6 g/dL 32-36 [facility] Work Phone: No Panel Informationon 02-02 Estimated GFR (MDRD) Amer 72 mL/min >60 [facility] Work Phone: Comment on above: GFR Calc Estimated GFR (MDRD) Non-Af Amer 59 mL/min >60 [facility] Work Phone: Comment on above: Non- GFR Calc Platelets bldon 02-02-2022 Platelets (Bld) [#/Vol] 247 10*3/uL 150-450 [facility] Work Phone: Serum or plasma calcium maria l urement (mass/volume)on 02-02-2022 Calcium [Mass/Vol] 8.5 mg/dL 8.5-10.1 [facility] Work Phone: Serum or plasma creatinine m easurement (mass/volume)on 02-02-2022 Creatinine [Mass/Vol] 1.26 mg/dL 0.70-1.30 [facility] Work Phone: Comment on above: The validity of the calculated GFR & GFRAA in patients over 70 years has not been determined. Clinical correlation is essential. Serum or plasma urea nitroge n measurement (mass/volume)on 02-02-2022 Urea nitrogen [Mass/Vol] 14 mg/dL 7-18 [facility] Work Phone: Thin prep Papanicolaou smear with manual screeningon 02-02-2022 Thin prep Papanicolaou smear with manual screening 5 5-15 [facility] Work Phone: Basophil percentageon 2021 Chloride [Moles/Vol] 98 mmol/L 98-[address] [facility] Work Phone: Glucose [Mass/Vol] 88 mg/dL 74-106 [facility] Work Phone: Potassium [Moles/Vol] 3.3 mmol/L 3.5-5.1 [address] [facility] Work Phone: Sodium [Moles/Vol] 132 mmol/L 136-145 [facility] Work Phone: WBC (Bld) [#/Vol] 9.0 10*3/uL 4.4-11.0 [facility] Work Phone: Blood erythrocytes count (nu mber/volume)on 01-02-2022 RBC (Bld) [#/Vol] 3.67 10*6/uL 4.6-6.[facility] Work Phone: Blood hemoglobin measurement (mass/volume)on 01-02-2022 Hemoglobin (Bld) [Mass/Vol] 10.6 g/dL 13.0-16.5 [facility] Work Phone: Blood platelet mean volumeon 01-02-2022 Platelet mean volume (Bld) [Entitic vol] 12.0 fL 6.2-12.0 [facility] Work Phone: Determination of erythrocyte mean corpuscular volume (MCV)on 01-02-2022 MCV (RBC) [Entitic vol] 87.7 fL 80-94 [facility] Work Phone: Hematocrit Auto (Bld) [Volum e fraction]on 01-02-2022 Hematocrit (Bld) [Volume fraction] 32.2 % 40-54 [facility] Work Phone: Laboratory - Chemistry and C hemistry - challengeon 01-02-2022 CO2 [Moles/Vol] 28.0 mmol/L 21.0-32.0 [facility] Work Phone: Urea nitrogen/Creatinine [Mass ratio] 10.3 mg/mg 10-20 [facility] Work Phone: Laboratory - Hematology and Cell countson 01-02-2022 Erythrocyte distribution width (RBC) [Entitic vol] 45.0 fL 35.1-43.9 [facility] Work Phone: Erythrocyte distribution width (RBC) [Ratio] 13.9 % 11.6-14.6 [facility] Work Phone: MCH (RBC) [Entitic mass] 28.9 pg 27.0-32.0 [facility] Work Phone: MCHC Auto (RBC) [Mass/Vol]on 01-02-2022 MCHC (RBC) [Mass/Vol] 32.9 g/dL 32-36 [facility] Work Phone: No Panel Informationon 01-02 Estimated GFR (MDRD) Amer 61 mL/min >60 [facility] Work Phone: Comment on above: GFR Calc Estimated GFR (MDRD) Non-Af Amer 50 mL/min >60 [facility] Work Phone: Comment on above: Non- GFR Calc Platelets bldon 01-02-2022 Platelets (Bld) [#/Vol] 234 10*3/uL 150-450 [facility] Work Phone: Serum or plasma calcium maria l urement (mass/volume)on 01-02-2022 Calcium [Mass/Vol] 8.0 mg/dL 8.5-10.1 [facility] Work Phone: Serum or plasma creatinine m easurement (mass/volume)on 01-02-2022 Creatinine [Mass/Vol] 1.45 mg/dL 0.70-1.30 [facility] Work Phone: Comment on above: The validity of the calculated GFR & GFRAA in patients over 70 years has not been determined. Clinical correlation is essential. Serum or plasma urea nitroge n measurement (mass/volume)on 01-02-2022 Urea nitrogen [Mass/Vol] 15 mg/dL 7-18 [facility] Work Phone: Thin prep Papanicolaou smear with manual screeningon 01-02-2022 Thin prep Papanicolaou smear with manual screening 6 5-15 [facility] Work Phone: Basophil percentageon 2021 Chloride [Moles/Vol] 101 mmol/L 98-107 [facility] Work Phone: Glucose [Mass/Vol] 99 mg/dL 74-106 [facility] Work Phone: Potassium [Moles/Vol] 3.7 mmol/L 3.5-5.1 [facility] Work Phone: Sodium [Moles/Vol] 136 mmol/L 136-145 [facility] Work Phone: Laboratory - Chemistry and C hemistry - challengeon 12-17-2021 CO2 [Moles/Vol] 32.0 mmol/L 21.0-32.0 [facility] Work Phone: Urea nitrogen/Creatinine [Mass ratio] 13.3 mg/mg 10-20 [facility] Work Phone: No Panel Informationon 12-17 Estimated GFR (MDRD) Amer 88 mL/min >60 [facility] Work Phone: Comment on above: GFR Calc Estimated GFR (MDRD) Non-Af Amer 73 mL/min >60 [facility] Work Phone: Comment on above: Non- GFR Calc Serum or plasma calcium maria l urement (mass/volume)on 12-17-2021 Calcium [Mass/Vol] 8.2 mg/dL 8.5-10.1 [facility] Work Phone: Serum or plasma creatinine m easurement (mass/volume)on 12-17-2021 Creatinine [Mass/Vol] 1.05 mg/dL 0.70-1.30 [facility] Work Phone: Comment on above: The validity of the calculated GFR & GFRAA in patients over 70 years has not been determined. Clinical correlation is essential. Serum or plasma urea nitroge n measurement (mass/volume)on 12-17-2021 Urea nitrogen [Mass/Vol] 14 mg/dL 7-18 [facility] Work Phone: Thin prep Papanicolaou smear with manual screeningon 12-17-2021 Thin prep Papanicolaou smear with manual screening 3 5-15 [facility] Work Phone: Basophil percentageon 2021 Chloride [Moles/Vol] 95 mmol/L 98-107 [facility] Phone: Cholesterol [Mass/Vol] 107 mg/dL <[address] [facility] Work Phone: Comment on above: <200 mg/dL Desirable 200-240 mg/dL Borderline >240 mg/dL High Risk Glucose [Mass/Vol] 84 mg/dL 74-106 [facility] Work Phone: Potassium [Moles/Vol] 4.3 mmol/L 3.5-5.[facility]: Sodium [Moles/Vol] 128 mmol/L 136-145 [facility] Work Phone: Triglyceride [Mass/Vol] 81 mg/dL <199 [facility] Work Phone: Comment on above: The drugs N-Acetylcy steine and Metamizole may falsely depress this assay.Serum Triglycerides Reference Interval Normal <150 mg/dL Borderline high 150 - 199 mg/dL High 200 - 499 mg/dL Very High > or = 500 mg/dL WBC (Bld) [#/Vol] 11.1 10*3/uL 4.4-11.0 [facility] Work Phone: Blood erythrocytes count (nu mber/volume)on 12-02-2021 RBC (Bld) [#/Vol] 3.81 10*6/uL 4.6-6.2 [facility] Work Phone: Blood hemoglobin measurement (mass/volume)on 12-02-2021 Hemoglobin (Bld) [Mass/Vol] 11.0 g/dL 13.0-16.5 [facility] Work Phone: Blood platelet mean volumeon 12-02-2021 Platelet mean volume (Bld) [Entitic vol] 12.1 fL 6.2-12.0 [facility] Work Phone: Determination of erythrocyte mean corpuscular volume (MCV)on 12-02-2021 MCV (RBC) [Entitic vol] 85.6 fL 80-94 [facility] Work Phone: Hematocrit Auto (Bld) [Volum e fraction]on 12-02-2021 Hematocrit (Bld) [Volume fraction] 32.6 % 40-54 [facility] Work Phone: Laboratory - Chemistry and C hemistry - challengeon 12-02-2021 CO2 [Moles/Vol] 27.0 mmol/L 21.0-32.0 [facility] Work Phone: Urea nitrogen/Creatinine [Mass ratio] 10.6 mg/mg 10-20 [facility] Work Phone: Laboratory - Hematology and Cell countson 12-02-2021 Erythrocyte distribution width (RBC) [Entitic vol] 41.9 fL 35.1-43.9 [facility] Work Phone: Erythrocyte distribution width (RBC) [Ratio] 13.4 % 11.6-14.6 [facility] Work Phone: MCH (RBC) [Entitic mass] 28.9 pg 27.0-32.0 [facility] Work Phone: MCHC Auto (RBC) [Mass/Vol]on 12-02-2021 MCHC (RBC) [Mass/Vol] 33.7 g/dL 32-36 [facility] Work Phone: No Panel Informationon 12-02 Estimated GFR (MDRD) Amer 38 mL/min >60 [facility] Work Phone: Comment on above: GFR Calc Estimated GFR (MDRD) Non-Af Amer 32 mL/min >60 [facility] Work Phone: Comment on above: Non- GFR Calc Thyroid Stimulating Hormone (TSH) 2.27 uIU/mL 0.358-3.74 [facility] Work Phone: Platelets bldon 12-02-2021 Platelets (Bld) [#/Vol] 226 10*3/uL 150-450 [facility] Work Phone: Serum or plasma calcium maria l urement (mass/volume)on 12-02-2021 Calcium [Mass/Vol] 8.2 mg/dL 8.5-10.1 [facility] Work Phone: Serum or plasma cholesterol in HDL measurement (mass/volume)on 12-02-2021 Cholesterol in HDL [Mass/Vol] 36 mg/dL >40 [facility] Work Phone: Comment on above: The drugs N-Acetylcy steine and Metamizole may falsely depress this assay. Reference Range HDL <40 mg/dL Low HDL Cholesterol HDL >or= 60 mg/dL High HDL Cholesterol Serum or plasma cholesterol in VLDL measurement (mass/volume)on 12-02-2021 Cholesterol in VLDL [Mass/Vol] 16 mg/dL 5-40 [facility] Work Phone: Serum or plasma creatinine m easurement (mass/volume)on 12-02-2021 Creatinine [Mass/Vol] 2.17 mg/dL 0.70-1.30 [facility] Work Phone: Comment on above: The validity of the calculated GFR & GFRAA in patients over 70 years has not been determined. Clinical correlation is essential. Serum or plasma low density lipoprotein (LDL) cholesterol measurement (mass/volume)on 12-02-2021 Cholesterol in LDL [Mass/Vol] 55 mg/dL 0-130 [facility] Work Phone: Serum or plasma urea nitroge n measurement (mass/volume)on 12-02-2021 Urea nitrogen [Mass/Vol] 23 mg/dL 7-18 [facility] Work Phone: Thin prep Papanicolaou smear with manual screeningon 12-02-2021 Thin prep Papanicolaou smear with manual screening 6 5-15 [facility] Work Phone: Whole blood hemoglobin A1c/t otal hemoglobin ratio (mass fraction)on 12-02-2021 HbA1c (Bld) [Mass fraction] 5.9 % 3.8-5.6 [facility] Work Phone: Comment on above: Normal < 5.7 % Predi abetic 5.7 - 6.4 % Diabetic >or= 6.5 % Please note range changes. Basophil percentageon 2021 Chloride [Moles/Vol] 104 mmol/L 98-107 [facility] Work Phone: Glucose [Mass/Vol] 90 mg/dL 74-106 [facility] Work Phone: Potassium [Moles/Vol] 3.6 mmol/L 3.5-5.1 [facility] Work Phone: Sodium [Moles/Vol] 139 mmol/L 136-145 [facility] Work Phone: WBC (Bld) [#/Vol] 8.2 10*3/uL 4.4-11.0 [facility] Work Phone: Blood erythrocytes count (nu mber/volume)on 11-03-2021 RBC (Bld) [#/Vol] 4.23 10*6/uL 4.6-6.2 [facility] Work Phone: Blood hemoglobin measurement (mass/volume)on 11-03-2021 Hemoglobin (Bld) [Mass/Vol] 12.5 g/dL 13.0-16.5 [facility] Work Phone: Blood platelet mean volumeon 11-03-2021 Platelet mean volume (Bld) [Entitic vol] 11.8 fL 6.2-12.0 [facility] Work Phone: Determination of erythrocyte mean corpuscular volume (MCV)on 11-03-2021 MCV (RBC) [Entitic vol] 89.4 fL 80-94 [facility] Work Phone: Hematocrit Auto (Bld) [Volum e fraction]on 11-03-2021 Hematocrit (Bld) [Volume fraction] 37.8 % 40-54 [facility] Work Phone: Laboratory - Chemistry and C hemistry - challengeon 11-03-2021 CO2 [Moles/Vol] 32.0 mmol/L 21.0-32.0 [facility] Work Phone: Urea nitrogen/Creatinine [Mass ratio] 13.6 mg/mg 10-20 [facility] Work Phone: Laboratory - Hematology and Cell countson 11-03-2021 Erythrocyte distribution width (RBC) [Entitic vol] 45.1 fL 35.1-43.9 [facility] Work Phone: Erythrocyte distribution width (RBC) [Ratio] 13.9 % 11.6-14.6 [facility] Work Phone: MCH (RBC) [Entitic mass] 29.6 pg 27.0-32.0 [facility] Work Phone: MCHC Auto (RBC) [Mass/Vol]on 11-03-2021 MCHC (RBC) [Mass/Vol] 33.1 g/dL 32-36 [facility] Work Phone: No Panel Informationon 11-03 Estimated GFR (MDRD) Amer 90 mL/min >60 [facility] Work Phone: Comment on above: GFR Calc Estimated GFR (MDRD) Non-Af Amer 75 mL/min >60 [facility] Work Phone: Comment on above: Non- GFR Calc Platelets bldon 11-03-2021 Platelets (Bld) [#/Vol] 227 10*3/uL 150-450 [facility] Work Phone: Serum or plasma calcium maria l urement (mass/volume)on 11-03-2021 Calcium [Mass/Vol] 8.3 mg/dL 8.5-10.1 [facility] Work Phone: Serum or plasma creatinine m easurement (mass/volume)on 11-03-2021 Creatinine [Mass/Vol] 1.03 mg/dL 0.70-1.30 [facility] Work Phone: Comment on above: The validity of the calculated GFR & GFRAA in patients over 70 years has not been determined. Clinical correlation is essential. Serum or plasma urea nitroge n measurement (mass/volume)on 11-03-2021 Urea nitrogen [Mass/Vol] 14 mg/dL 7-18 [facility] Work Phone: Thin prep Papanicolaou smear with manual screeningon 11-03-2021 Thin prep Papanicolaou smear with manual screening 3 5-15 [facility] Work Phone: Basophil percentageon 2021 Chloride [Moles/Vol] 105 mmol/L 98-107 [facility] Work Phone: Glucose [Mass/Vol] 60 mg/dL 74-106 [facility] Work Phone: Potassium [Moles/Vol] 3.4 mmol/L 3.5-5.1 [facility] Work Phone: Sodium [Moles/Vol] 137 mmol/L 136-145 [facility] Work Phone: WBC (Bld) [#/Vol] 7.6 10*3/uL 4.4-11.0 [facility] Work Phone: Blood erythrocytes count (nu mber/volume)on 10-06-2021 RBC (Bld) [#/Vol] 4.11 10*6/uL 4.6-6.2 [facility] Work Phone: Blood hemoglobin measurement (mass/volume)on 10-06-2021 Hemoglobin (Bld) [Mass/Vol] 12.1 g/dL 13.0-16.5 [facility] Work Phone: Blood platelet mean volumeon 10-06-2021 Platelet mean volume (Bld) [Entitic vol] 11.6 fL 6.2-12.0 [facility] Work Phone: Determination of erythrocyte mean corpuscular volume (MCV)on 10-06-2021 MCV (RBC) [Entitic vol] 88.3 fL 80-94 [facility] Work Phone: Hematocrit Auto (Bld) [Volum e fraction]on 10-06-2021 Hematocrit (Bld) [Volume fraction] 36.3 % 40-54 [facility] Work Phone: Laboratory - Chemistry and C hemistry - challengeon 10-06-2021 CO2 [Moles/Vol] 31.0 mmol/L 21.0-32.0 [facility] Work Phone: Urea nitrogen/Creatinine [Mass ratio] 11.7 mg/mg 10-20 [facility] Work Phone: Laboratory - Hematology and Cell countson 10-06-2021 Erythrocyte distribution width (RBC) [Entitic vol] 45.5 fL 35.1-43.9 [facility] Work Phone: Erythrocyte distribution width (RBC) [Ratio] 14.1 % 11.6-14.6 [facility] Work Phone: MCH (RBC) [Entitic mass] 29.4 pg 27.0-32.0 [facility] Work Phone: MCHC Auto (RBC) [Mass/Vol]on 10-06-2021 MCHC (RBC) [Mass/Vol] 33.3 g/dL 32-36 [facility] Work Phone: No Panel Informationon 10-06 Estimated GFR (MDRD) Amer 90 mL/min >60 [facility] Work Phone: Comment on above: GFR Calc Estimated GFR (MDRD) Non-Af Amer 75 mL/min >60 [facility] Work Phone: Comment on above: Non- GFR Calc Platelets bldon 10-06-2021 Platelets (Bld) [#/Vol] 242 10*3/uL 150-450 [facility] Work Phone: Serum or plasma calcium maria l urement (mass/volume)on 10-06-2021 Calcium [Mass/Vol] 8.5 mg/dL 8.5-10.1 [facility] Work Phone: Serum or plasma creatinine m easurement (mass/volume)on 10-06-2021 Creatinine [Mass/Vol] 1.03 mg/dL 0.70-1.30 [facility] Work Phone: Comment on above: The validity of the calculated GFR & GFRAA in patients over 70 years has not been determined. Clinical correlation is essential. Serum or plasma urea nitroge n measurement (mass/volume)on 10-06-2021 Urea nitrogen [Mass/Vol] 12 mg/dL 7-18 [facility] Work Phone: Thin prep Papanicolaou smear with manual screeningon 10-06-2021 Thin prep Papanicolaou smear with manual screening 1 5-15 [facility] Work Phone: Basophil percentageon 2021 Chloride [Moles/Vol] 101 mmol/L 98-107 [facility] Work Phone: Glucose [Mass/Vol] 75 mg/dL 74-106 [facility] Work Phone: Potassium [Moles/Vol] 3.5 mmol/L 3.5-5.1 [facility] Work Phone: Sodium [Moles/Vol] 135 mmol/L 136-145 [facility] Work Phone: WBC (Bld) [#/Vol] 8.4 10*3/uL 4.4-11.0 [facility] Work Phone: Blood erythrocytes count (nu mber/volume)on 09-03-2021 RBC (Bld) [#/Vol] 3.92 10*6/uL 4.6-6.2 [facility] Work Phone: Blood hemoglobin measurement (mass/volume)on 09-03-2021 Hemoglobin (Bld) [Mass/Vol] 11.5 g/dL 13.0-16.5 [facility] Work Phone: Blood platelet mean volumeon 09-03-2021 Platelet mean volume (Bld) [Entitic vol] 12.1 fL 6.2-12.0 [facility] Work Phone: Determination of erythrocyte mean corpuscular volume (MCV)on 09-03-2021 MCV (RBC) [Entitic vol] 89.3 fL 80-94 [facility] Work Phone: Hematocrit Auto (Bld) [Volum e fraction]on 09-03-2021 Hematocrit (Bld) [Volume fraction] 35.0 % 40-54 [facility] Work Phone: Laboratory - Chemistry and C hemistry - challengeon 09-03-2021 CO2 [Moles/Vol] 30.0 mmol/L 21.0-32.0 [facility] Work Phone: Urea nitrogen/Creatinine [Mass ratio] 11.7 mg/mg 10-20 [facility] Work Phone: Laboratory - Hematology and Cell countson 09-03-2021 Erythrocyte distribution width (RBC) [Entitic vol] 44.5 fL 35.1-43.9 [facility] Work Phone: Erythrocyte distribution width (RBC) [Ratio] 13.7 % 11.6-14.6 [facility] Work Phone: MCH (RBC) [Entitic mass] 29.3 pg 27.0-32.0 [facility] Work Phone: MCHC Auto (RBC) [Mass/Vol]on 09-03-2021 MCHC (RBC) [Mass/Vol] 32.9 g/dL 32-36 [facility] Work Phone: No Panel Informationon 09-03 Estimated GFR (MDRD) Amer 83 mL/min >60 [facility] Work Phone: Comment on above: GFR Calc Estimated GFR (MDRD) Non-Af Amer 69 mL/min >60 [facility] Work Phone: Comment on above: Non- GFR Calc Platelets bldon 09-03-2021 Platelets (Bld) [#/Vol] 213 10*3/uL 150-450 [facility] Work Phone: Serum or plasma calcium maria l urement (mass/volume)on 09-03-2021 Calcium [Mass/Vol] 8.2 mg/dL 8.5-10.1 [facility] Work Phone: Serum or plasma creatinine m easurement (mass/volume)on 09-03-2021 Creatinine [Mass/Vol] 1.11 mg/dL 0.70-1.30 [facility] Work Phone: Comment on above: The validity of the calculated GFR & GFRAA in patients over 70 years has not been determined. Clinical correlation is essential. Serum or plasma urea nitroge n measurement (mass/volume)on 09-03-2021 Urea nitrogen [Mass/Vol] 13 mg/dL 7-18 [facility] Work Phone: Thin prep Papanicolaou smear with manual screeningon 09-03-2021 Thin prep Papanicolaou smear with manual screening 4 5-15 [facility] Work Phone: Basophil percentageon 2020 Chloride [Moles/Vol] 102 mmol/L 98-107 [facility] Work Phone: Glucose [Mass/Vol] 80 mg/dL 74-106 [facility] Work Phone: Comment on above: Please note revised GLUCOSE reference range effective 2017. Potassium [Moles/Vol] 3.6 mmol/L 3.5-5.1 [facility] Work Phone: Sodium [Moles/Vol] 137 mmol/L 136-145 [facility] Work Phone: Laboratory - Chemistry and C hemistry - challengeon 08-04-2021 CO2 [Moles/Vol] 30.0 mmol/L 21.0-32.0 [facility] Work Phone: Urea nitrogen/Creatinine [Mass ratio] 8.3 mg/mg 10-20 [facility] Work Phone: No Panel Informationon 08-04 Estimated GFR (MDRD) Amer 76 mL/min >60 [facility] Work Phone: Comment on above: GFR Calc Estimated GFR (MDRD) Non-Af Amer 63 mL/min >60 [facility] Work Phone: Comment on above: Non- GFR Calc Serum or plasma calcium maria l urement (mass/volume)on 08-04-2021 Calcium [Mass/Vol] 8.5 mg/dL 8.5-10.1 [facility] Work Phone: Serum or plasma creatinine m easurement (mass/volume)on 08-04-2021 Creatinine [Mass/Vol] 1.20 mg/dL 0.70-1.30 [facility] Work Phone: Comment on above: The validity of the calculated GFR & GFRAA in patients over 70 years has not been determined. Clinical correlation is essential. Serum or plasma urea nitroge n measurement (mass/volume)on 08-04-2021 Urea nitrogen [Mass/Vol] 10 mg/dL 7-18 [facility] Work Phone: Thin prep Papanicolaou smear with manual screeningon 08-04-2021 Thin prep Papanicolaou smear with manual screening 5 5-15 [facility] Work Phone: Basophil percentageon 2020 Chloride [Moles/Vol] 103 mmol/L 98-107 [facility] Work Phone: Glucose [Mass/Vol] 116 mg/dL 74-106 [facility] Work Phone: Comment on above: Fasting Glucose resu lt from 100 to 125 mg/dL suggests IMPAIRED HOMEOSTASIS per A.D.A. criteria.Please note revised GLUCOSE reference range effective 2017. Potassium [Moles/Vol] 3.7 mmol/L 3.5-5.1 [facility] Work Phone: Sodium [Moles/Vol] 138 mmol/L 136-145 [facility] Work Phone: WBC (Bld) [#/Vol] 9.8 10*3/uL 4.4-11.0 [facility] Work Phone: Blood erythrocytes count (nu mber/volume)on 07-29-2021 RBC (Bld) [#/Vol] 3.78 10*6/uL 4.6-6.2 [facility] Work [facility]: Blood hemoglobin measurement (mass/volume)on 07-29-2021 Hemoglobin (Bld) [Mass/Vol] 11.1 g/dL 13.0-16.5 [facility] Work Phone: Blood platelet mean volumeon 07-29-2021 Platelet mean volume (Bld) [Entitic vol] 11.6 fL 6.2-12.0 [facility] Work Phone: Determination of erythrocyte mean corpuscular volume (MCV)on 07-29-2021 MCV (RBC) [Entitic vol] 90.5 fL 80-94 [facility] Work Phone: Hematocrit Auto (Bld) [Volum e fraction]on 07-29-2021 Hematocrit (Bld) [Volume fraction] 34.2 % 40-54 [facility] Work Phone: Laboratory - Chemistry and C hemistry - challengeon 07-29-2021 CO2 [Moles/Vol] 30.0 mmol/L 21.0-32.0 [facility] Work Phone: Urea nitrogen/Creatinine [Mass ratio] 11.1 mg/mg 10-20 [facility] Work Phone: Laboratory - Hematology and Cell countson 07-29-2021 Erythrocyte distribution width (RBC) [Entitic vol] 47.4 fL 35.1-43.9 [facility] Work Phone: Erythrocyte distribution width (RBC) [Ratio] 14.2 % 11.6-14.6 [facility] Work Phone: MCH (RBC) [Entitic mass] 29.4 pg 27.0-32.0 [facility] Work Phone: MCHC Auto (RBC) [Mass/Vol]on 07-29-2021 MCHC (RBC) [Mass/Vol] 32.5 g/dL 32-36 [facility] Work Phone: No Panel Informationon 07-29 Estimated GFR (MDRD) Amer 78 mL/min >60 [facility] Work Phone: Comment on above: GFR Calc Estimated GFR (MDRD) Non-Af Amer 64 mL/min >60 [facility] Work Phone: Comment on above: Non- GFR Calc Platelets bldon 07-29-2021 Platelets (Bld) [#/Vol] 221 10*3/uL 150-450 [facility] Work Phone: Serum or plasma calcium maria l urement (mass/volume)on 07-29-2021 Calcium [Mass/Vol] 8.1 mg/dL 8.5-10.1 [facility] Work Phone: Serum or plasma creatinine m easurement (mass/volume)on 07-29-2021 Creatinine [Mass/Vol] 1.17 mg/dL 0.70-1.30 [facility] Work Phone: Comment on above: The validity of the calculated GFR & GFRAA in patients over 70 years has not been determined. Clinical correlation is essential. Serum or plasma urea nitroge n measurement (mass/volume)on 07-29-2021 Urea nitrogen [Mass/Vol] 13 mg/dL 7-18 [facility] Work Phone: Thin prep Papanicolaou smear with manual screeningon 07-29-2021 Thin prep Papanicolaou smear with manual screening 5 5-15 [facility] Work Phone: Culture, urine Bacteria identified Cx Nom (U) Proteus mirabilis [facility] Work Phone: Bacteria identified Cx Nom (U) Enterococcus faecalis [facility] Work Phone: Vital Signs Date Time Vital Sign Value Performing Clinician Faci mina 06-02-2022 09:00-0400 Body height 167.6 cm Jordan Jordan Jr., MD Work Phone: [facility] 06-02-2022 09:00-0400 Body weight 98.97 kg Jordan Jordan Jr., MD Work Phone: [facility] 04-11-2022 06:57-0400 Diastolic blood pressure 74 mm[Hg] [facility] Work Phone: 04-11-2022 06:57-0400 Heart rate 64 /min [facility] Work Phone: 04-11-2022 06:57-0400 Respiratory rate 18 /min [facility] Work Phone: 04-11-2022 06:57-0400 Systolic blood pressure 159 mm[Hg] [facility] Work Phone: 04-11-2022 05:03-0400 SaO2% (BldA) [Mass fraction] 94 % [facility] Work Phone: 04-10-2022 19:37-0400 Body temperature 98.7 [degF] [facility] Work Phone: 04-10-2022 16:33-0400 Body height 167.64 cm [facility] Work Phone: 04-10-2022 16:33-0400 Body mass index (BMI) [Ratio] 35.4 kg/m2 [facility] Work Phone: 04-10-2022 16:33-0400 Body weight 99.4 kg [facility] Work Phone: 04-10-2022 09:00-0400 Body height 167.6 cm Ousmane Durand MD Work Phone: [facility] 04-10-2022 09:00-0400 Body weight 95.98 kg Ousmane Durand MD Work Phone: [facility] Encounters Encounter Date Encounter Type Care Provider Facility Start: 06-04-2025 End: 06-04-2025 ambulatory Aura Sky OLS Facility:[facility] Start: 05-04-2025 End: 05-04-2025 ambulatory Aura Sky OLS Facility:[facility] Start: 04-05-2025 End: 04-05-2025 ambulatory Aura Sky Facility:[facility] Start: 04-03-2025 End: 04-03-2025 ambulatory Aura Sky Facility:[facility] Start: 03-05-2025 End: 03-05-2025 ambulatory Aura Sky Facility:[facility] Start: 02-01-2025 Registered Referred Aura Sky MD [facility] Start: 02-01-2025 End: 02-01-2025 ambulatory Aura Sky Facility:[facility] Start: 01-02-2025 End: 01-02-[address] Aura Sky MD Work Phone: [facility] Start: 01-02-2025 End: 01-02-2025 Departed Referred A[facility] Sky MD [facility] Start: 01-02-2025 End: 01-02-2025 ambulatory Aura Noé Sky OLS Facility:[facility] Start: 12-08-2024 End: 12-08-[address] Aura Sky MD Work Phone: [facility] Work Phone: Start: 12-08-2024 End: 12-08-2024 Departed Referred [facility] Start: 12-08-2024 End: 12-08-2024 ambulatory Aura Noé Curtis OLS Facility:[facility] Start: 11-30-2024 End: 11-30-2024 Departed Referred [facility]Renato [facility] Start: 11-30-2024 Registered Referred Aura Sky MD [facility] Start: 11-30-2024 End: 11-30-2024 ambulatory Aura Umanzor Sky OLS Facility:[facility] Start: 11-01-2024 End: 11-01-[address] Aura Sky MD Work Phone: [facility] Work Phone: Start: 11-01-2024 End: 11-01-2024 Departed Referred Aura Sky MD [facility] Start: 11-01-2024 End: 11-01-2024 ambulatory Aura CORONADO Facility:[facility] Start: 10-03-2024 ambulatory Aura CORONADO Facil ity:[facility] Start: 10-03-2024 Registered Referred Aura Sky MD [facility] Start: 09-04-2024 ambulatory Aura Sky OLS Facil ity:[facility] Start: 09-04-2024 Registered Referred Aura Sky MD [facility] Start: 08-03-2024 End: 08-03-2024 [facility] Start: 08-03-2024 End: 08-03-2024 ambulatory Aura CORONADO Facility:[facility] Start: 07-03-2024 End: 07-03-2024 ambulatory Aura CORONADO Facility:[facility] Start: 11-02-2023 End: 11-02-2023 ambulatory [facility] Work Phone: Start: 11-02-2023 End: 11-02-[address] [facility] Start: 10-27-2023 End: 10-27-2023 ambulatory [facility] Work Phone: Start: 10-27-2023 End: 10-27-[address] [facility] Start: 09-29-2023 End: 09-29-2023 ambulatory [facility] Work Phone: Start: 09-29-2023 End: 09-29-[address] [facility] Start: 09-03-2023 End: 09-03-2023 ambulatory [facility] Work Phone: Start: 09-03-2023 End: 09-03-[address] [facility] Start: 06-03-2023 End: 06-03-2023 ambulatory [facility] Work Phone: Start: 06-03-2023 End: 06-03-[address] [facility] Start: 03-03-2023 End: 03-03-2023 ambulatory [facility] Work Phone: Start: 03-03-2023 End: 03-03-[address] [facility] Start: 01-01-2023 End: 01-01-[address] [facility] Start: 12-02-2022 End: 12-02-2022 ambulatory [facility] Work Phone: Start: 12-02-2022 End: 12-02-[address] [facility] Start: 11-02-2022 End: 11-02-2022 ambulatory [facility] Work Phone: Start: 11-02-2022 End: 11-02-[address] [facility] Start: 11-02-2022 Registered Referred [facility] Start: 10-07-2022 End: 10-07-2022 ambulatory [facility] Work Phone: Start: 10-07-2022 End: 10-07-[address] [facility] Start: 10-05-2022 End: 10-05-[address] [facility] Start: 09-03-2022 End: 09-03-2022 ambulatory [facility] Work Phone: Start: 09-03-2022 End: 09-03-[address] [facility] Start: 08-04-2022 End: 08-04-2022 ambulatory [facility] Work Phone: Start: 08-04-2022 End: 08-04-[address] [facility] Start: 08-04-2022 Registered Referred [facility] Start: 07-06-2022 End: 07-06-2022 ambulatory [facility] Work Phone: Start: 07-06-2022 End: 07-06-[address] [facility] Start: 06-02-2022 End: 06-02-2022 Patient encounter procedure Jordan Jordan MD Work Phone: Urology Comment on above: Urinary retention (P rimary Dx) Start: 06-02-2022 End: 06-02-2022 ambulatory JORDAN JORDAN JR Facility:[facility] Start: 06-02-2022 End: 06-02-[address] [facility] Start: 05-04-2022 End: 05-04-2022 ambulatory [facility] Work Phone: Start: 05-04-2022 End: 05-04-[address] [facility] Start: 04-10-2022 End: 04-11-2022 Emergency department patient visit [facility] Start: 04-10-2022 End: 04-10-2022 ambulatory [facility] Start: 04-10-2022 End: 04-10-2022 Patient encounter procedure Ousmane Durand MD Work Phone: Urology Comment on above: Urine retention (Dodie antonino Dx); Benign prostatic hyperplasia with urinary retention Start: 04-03-2022 End: 04-03-2022 ambulatory [facility] Work Phone: Start: 04-03-2022 End: 04-03-[address] [facility] Start: 03-03-2022 Registered Referred [facility] Start: 02-02-2022 End: 02-02-[address] [facility] Start: 01-02-2022 End: 01-02-[address] [facility] Start: 12-17-2021 End: 12-17-[address] [facility] Start: 12-02-2021 End: 12-02-[address] [facility] Start: 12-02-2021 Registered Referred [facility] Start: 11-03-2021 End: 11-03-[address] [facility] Start: 11-03-2021 Registered Referred [facility] Start: 10-06-2021 End: 10-06-[address] [facility] Start: 10-06-2021 Registered Referred [facility] Start: 09-03-2021 End: 09-03-[address] [facility] Start: 08-04-2021 Registered Referred [facility] Start: 07-29-2021 Registered Referred [facility] Procedures Date Procedure Procedure Detail Performing [...] profile DTAP,TDAP,TD (2 - Td or Tdap) [facility] Start: 04-09-2022 Influenza vaccination INFLUENZA (#1) [facility] Start: 09-20-2021 COVID-19 VACCINE (4 - Booster for Pfizer series) COVID-19 VACCINE (4 - Booster for Pfizer series) [facility] Start: 08-09-2021 ADVANCE DIRECTIVE DISCUSSION ADVANCE DIRECTIVE DISCUSSION [facility] Start: 08-09-2021 DEPRESSION ASSESSMENT DEPRESSION ASS ESSMENT [facility] Start: 07-15-2021 COVID-19 VACCINE (4 - Booster for Pfizer series) COVID-19 VACCINE (4 - Booster for Pfizer series) [facility] Start: 02-20-2017 Adult depression screening assessment DEPRESSION SCREENING [facility] Start: 10-03-2016 Hepatitis B screening URINE ALBUMIN:CREATININE RATIO [facility] Start: 10-03-2016 Hepatitis B surface antibody level LDL CHOLESTEROL [facility] Start: 06-19-2016 Hemoglobin A1c/Hemoglobin.total in Blood HBA1C [facility] Start: 06-12-2016 3 comp foot exam completed DIABETIC FOOT EXAM [facility] Start: 06-12-2016 PNEUMOCOCCAL: 65+ (2 - PPSV23 if available, else PCV20) PNEUMOCOCCAL: 65+ (2 - PPSV23 if available, else PCV20) [facility] Start: 06-12-2016 PNEUMOCOCCAL: 65+ (2 - PPSV23 or PCV20) PNEUMOCOCCAL: 65+ (2 - PPSV23 or PCV20) [facility] Start: 1995 SHINGRIX VACCINE (1 of 2) SHINGRIX VACCINE (1 of 2) [facility] Start: 1963 ANNUAL PCP TEAM DIRECTOR PAYER SAVANNA DISEASE VISIT ANNUAL PCP TEAM CHRONIC DISEASE VISIT [facility] Start: 1963 BP CONTROLLED (<130/80) BP CONTROLLE D (<130/80) [facility] Start: 1963 HEPATITIS C SCREENING HEPATITIS C SC REENING [facility] Start: 1955 Hepatitis C antibody , confirmatory test DILATED RETINAL EXAM [facility] Patient referral [facility] Work Phone: Immunizations Immunization Date Immunization Notes Care Provider Gary feldman 07-08-2020 tetanus toxoid, reduced diphtheria toxoid, and acellular pertussis vaccine, adsorbed [facility] 10-10-2015 tetanus toxoid, reduced diphtheria toxoid, and acellular pertussis vaccine, adsorbed Ousmane Durand MD Work Phone: [facility] Work Phone: 06-12-2015 influenza, injectable, quadrivalent, contains preservative Ousmane Durand MD Work Phone: [facility] Work Phone: 06-12-2015 pneumococcal conjugate vaccine, 13 valent Ousmane Durand MD Work Phone: [facility] Work Phone: Payers Date Payer Category Payer Self-pay [id number] 2024 Unknown [id number] 2014 Medicaid [facility] MEDICAID [employer] [facility] MEDICAID [id number] 2014-Present [phone] [address] [place] [address] Medicaid [id number] 2014 Medicare [facility] MEDICARE [employer] [facility] MEDICARE [id number] 2014-Present [phone] [address] [place] [address] Medicare [id number] 2014 Unknown [id number] Unknown [id number] Unknown [id number] Unknown [id number] Unknown [id number] Unknown [id number] Unknown [id number] Unknown [id number] Unknown [id number] Unknown [id number] Unknown [id number] Unknown [id number] Unknown [id number] Unknown [id number] Social History Date Type Detail Facility Start: 08-03-2020 End: 04-10-2022 Tobacco smoking status TXIS Unknown if ever smoked [facility] Start: 08-03-2020 None [facility] Start: 08-03-2020 - [facility] Start: 12-18-2015 Non-smoker [facility] Start: 1945 Sex Assigned At Male W [facility] Start: 02-26-2016 End: 04-10-2022 Tobacco smoking status TXIS Never smoked tobacco [facility] Start: 02-26-2016 Tobacco use and exposure Smokeless tobacco non-user [facility] Start: 04-10-2022 End: 06-02-2022 Alcohol intake Current non-drinker of alcohol (finding) [facility] Start: 1945 Sex Assigned At Not on file C [facility] Start: 03-31-2022 End: 06-02-2022 Exposure to SARS-CoV-2 (event) Not sure [facility] Start: 11-23-2024 Sex Male (finding) [facility] Medical Equipment Procedure Code Equipment Code Equipment Origin al Text Equipment Identifier Dates Start: 12-23-2015 Comment on above: Check blood sugars o nce a day. Check blood sugar on ce daily. Dx: E11.40. Mental Status Date Assessment Result Facility 04-10-2022 Cognitive function Level Of Cons ciousness Awake;Alert;Inappropriate;Rest less [facility] Work Phone: Progress note 06-02-2022 Note Date & Type Note Facility 06-02-2022 Note HNO ID: [id number] Author: Jordan Jordan Jr., MD Service: ? [...] (no units) Date Value 01/09/2016 neg Specific [place], Ur (no units) Date Value 01/09/2016 1.010 [...] daily. lancets (SOLUS V2 LANCETS) 28 gauge [facility] Check blood sugar once daily. Dx: E11.40. [...] (HCC) 03/11/[address] Krause at the [facility] center Type 2 diabetes, uncontrolled, with [...] well nourished Skin: (more content not included)... [facility] History of Present illness Narrative 06-02-2022 Jordan [...] (no units) Date Value 01/09/2016 neg Specific [place], Ur (no units) Date Value 01/09/2016 1.010 [...] daily. lancets (SOLUS V2 LANCETS) 28 gauge [facility] Check blood sugar once daily. Dx: E11.40. [...] Jr, MD 06/02/2022 documented in this encounter [facility] Progress note 04-10-2022 Note Date & Type Note Facility 04-10-2022 Note HNO ID: [id number] Author: Ousmane Durand MD Service: ? Author Type: Physician Type: Progress Notes Filed: 04/10/2022 10:03 AM Note Text: [facility] ESTABLISHED [...] last 2 years. Patient lives in a long-term facility and has his catheter changed every [...] mouth daily at bedtime. blood sugar diagnostic ([employer] ULTRA TEST) test strip Check blood sugars [...] Ousmane Durand M.D, MS Associate Staff [facility] and (more content not included)... [facility] History of Present illness Narrative 04-10-2022 Ousmane Durand MD - 04/10/2022 8:58 AM EDT Note Date & Type Note Facility 04-10-2022 History of Presen t illness Narrative Images from the original note were not included. [facility] ESTABLISHED [...] last 2 years. Patient lives in a long-term facility and has his catheter changed every [...] mouth daily at bedtime. blood sugar diagnostic ([employer] ULTRA TEST) test strip Check blood sugars once a day. Levothyroxine 50 mcg cap Take 1 capsule by mouth once daily. lisinopril (ZESTRIL, PRINIVIL) 40 mg tablet Take 1 tablet by mouth once daily. amLODIPine (NORVASC) 10 mg tablet Take 1 tablet by mouth once daily. lancets (SOLUS V2 LANCETS) 28 gauge [facility] Check blood sugar once daily. Dx: E11.40. [...] Testes: Descended, nontender, and no masses bilaterally DAITI deferred IMPRESSION/PLAN: 1. Urine retention - ICD9: [...] Ousmane Durand M.D, MS Associate Staff [facility] Cc: Dr. Aura Jordan documented in this encounter [facility] Evaluation note Note Date & Type Note Facility Evaluation note No assessment information availa ble [facility] Work Phone: Evaluation note Note Date & Type Note Facility Evaluation note Diagnosis Urine retention- Primary Retention of urine, unspecified Benign prostatic hyperplasia with urinary retention documented in this encounter [facility] Evaluation note Note Date & Type Note Facility Evaluation note Diagnosis Urinary retention- Primary Retention of urine, unspecified documented in this encounter [facility] Reason for referral (narrative) Note Date & Type Note Facility Reason for referral (narrative) No reason for referral information available [facility] Work Phone: Chief Complaint and Reason for Visit Chief Complaint [facility] LABWORK M[facility] LAB WORK [facility] LAB WORK [facility] LABWORK [facility] LABWORK Chief Complaint M[facility] LAB WOR K [facility] LABWORK [facility] LABWORK [facility] LABWORK Chief Complaint MCC LAB WOR K MCC LABWORK MCC LABWORK MCC LABWORK MCC LABWORK Chief Complaint MCC LABWORK MCC LABWORK MCC LABWORK MCC LABWORK MCC LABWORK Chief Complaint MCC LABWORK MCC LABWORK MCC LABWORK MCC LABWORK LABWORK Chief Complaint MCC LABWORK LABWORK MCC LABWORK LAB[place]ORK general illness Chief Complaint LABWORK MCC LABWORK LAB[place] general illness M[facility] LAB WORK Chief Complaint MCC LABWORK LAB[place] general illness MCC LAB WORK MCC LABWORK Chief Complaint MCC LAB WOR K MCC LABWORK MCC LABWORK LABWORK Chief Complaint MCC LABWORK MCC LABWORK LABWORK MCC LAB WORK Chief Complaint LABWORK MCC LAB WORK MCC LBWORK MCC LAB WORK Chief Complaint LABWORK MCC LAB WORK MCC LBWORK MCC LAB WORK LABWORK Chief Complaint MCC LAB WOR K MCC LBWORK MCC LAB WORK LABWORK MCC LAB WORK Chief Complaint MCC LAB WOR K MCC LABWORK MCC LAB WORK Chief Complaint MCC LAB WOR K [facility] LAB WORK Chief Complaint MCC LAB WOR K [facility] LABWORK Chief Complaint MCC LABWORK MCC LAB WORK M[facility] LAB WORK Chief Complaint MCC LABWORK MCC LAB WORK MCC LAB WORK [facility] LAB WORK Chief Complaint Admit Date [facility] LAB WORK August 03 5:00am [facility] LAB WORK October 03 4:00am LABWORK November 01, 2024 5:0 0am Chief Complaint Admit Date [facility] LAB WORK October 03 4:00am LABWORK November 01, 2024 5:0 0am LABWORK December 08, 2024 3:41pm Chief Complaint Admit Date LABWORK November 01, 2024 5:0 0am [facility] LAB WORK November 30, 2024 5 :00am LABWORK December 08, 2024 3:41pm [facility] LAB WORK January 02, 2025 5:0 0am [...] Date/ Time Advance Directives No November 27, 2 016 6:00am Living Will No August 03 020 10:55pm Power of Finishing Department Supervisor No August 03, 2020 10:55pm Advance Directive Response Recorded Date/ Time Name of Medical Power of Finishing Department Supervisor Dillon WALTERS, brother in law. April 10, 2022 4:36pm Advance Directives No November 27, 016 6:00am Living Will Yes April 10, 022 4:36pm Power of Finishing Department Supervisor Yes April 10, 2022 4:36pm Advance Directive Response Recorded Date/ Time Advance Directives No November 27, 016 5:00am Living Will Yes April 10, 022 3:36pm Power of Finishing Department Supervisor Yes April 10, 2022 3:36pm Advance Directive Response Recorded Date/ Time Advance Directives No November 27, 016 6:00am Living Will Yes April 10, 4:36pm Power of Finishing Department Supervisor Yes April 10, 2022 4:36pm Advance Directive [...] or prosecute any alcohol or drug abuse patient.[facility] the event this information is protected by the Federal Confidentiality of Alcohol and Drug Abuse Patient Records regulations: The Federal rules restrict any use of the information to criminally investigate or prosecute any alcohol or drug abuse patient[facility] Reason for Visit (unrecogniz ed section and content) Reason Comments Established Patient Cath patient/interes ed in supra pubic cath Reason Comments Established Patient Discussion/SPT tube placement Care Teams (unrecognized sec tion and content) Engagement Director Relationship Specialty Start Date End Date Aura Sky MD [address] [place] [id number] PCP - General Family Practice 04/03/22 Engagement Director Relationship Specialty Start Date End Date Aura Sky MD [address] [place] [address] [id number] PCP - General Family Medicine 04/03/22 Team [...] Dr. Aura Sky MD Primary Care Provider, [facility] Provider Active Team Status: Inactive Member Role [...] section and content) DATE CREATED AUTHOR 06/03/2022 [facility] DATE CREATED AUTHOR 'S ORGANIZ ATION 06/09/2025 [facility] FOR RECORDS PERTAINING TO PATIENTS WHO ARE [...] BE BASED ON THE PRIMARY CLINICAL RECORDS. [facility]. provides no warranty or guarantee of the accuracy or completeness of information in this document.
[2025-08-03 08:15] LABS: Hematocrit 28.7 % (40-54); Hemoglobin 9.0 g/dL (13.0-16.5); Mean Corp Hgb Conc 31.4 g/dL (32-36); Mean Corpuscular Volume 91.1 fL (80-94); Mean Platelet Vol. 9.8 fl (6.2-12.0); Platelet Count 321 K/mm3 (150-450); RBC Distribution Width CV 16.2 % (11.6-14.6); RBC Distribution Width SD 52.5 fl (35.1-43.9); Red Blood Count 3.15 M/mm3 (4.6-6.2); White Blood Count 6.8 K/mm3 (4.4-11.0)
== END ==
LOC: OLS.WCC 06:50
PROVIDERS: PCP Family Medicine; Visit Provider Family Medicine
DX: D64.9 Anemia, unspecified (principal)
CPT/HCPCS: 36415; 85027